=== PATIENT | male | born 1975 | race Two or more races ===

== ENCOUNTER 2017-10-06 21:40 | Inpatient (IN) | payer BC, MEDICAID ==
[~2017-10-06] VITALS: Ht 162.6 cm; Wt 161.7 kg
[2017-10-06] MEDS ORDERED: Morphine Sulfate 4mg/ml Inj IVP ONE (22:15)
[2017-10-06] MEDS ORDERED: Vancomycin 1.5gm/D5W 250ml 250 ML IVPB ONE (22:15)
[2017-10-06 22:39] LABS: BASOPHILS % (AUTO) 1.1 % (0.0-2.0); EOSINOPHILS % (AUTO) 1.3 % (0.0-3.0); HEMATOCRIT 50.1 % (42.0-52.0); LYMPHOCYTES % (AUTO) 17.1 % (20.0-45.0); MEAN CORPUSCULAR VOLUME 67 FL (80-99); MONOCYTES % (AUTO) 11.3 % (1.0-10.0); NEUTROPHILS % (AUTO) 69.3 % (45.0-75.0); PLATELET COUNT 137 K/UL (150-450); RED BLOOD COUNT 7.47 M/UL (4.70-6.10); RED CELL DISTRIBUTION WIDTH 19.3 % (11.6-14.8); WHITE BLOOD COUNT 7.3 K/UL (4.8-10.8)
[2017-10-06 22:50] LABS: ANION GAP 1 mmol/L (5-15); BLOOD UREA NITROGEN 22 mg/dL (7-18); CALCIUM 8.6 MG/DL (8.5-10.1); CARBON DIOXIDE 38 MMOL/L (21-32); CHLORIDE 99 MMOL/L (98-107); CREATININE 1.3 MG/DL (0.55-1.30); POTASSIUM 4.3 MMOL/L (3.5-5.1); SODIUM 138 MMOL/L (136-145)
[2017-10-06 23:05] LABS: ALANINE AMINOTRANSFERASE 31 U/L (12-78); ALBUMIN 2.9 G/DL (3.4-5.0); ALBUMIN/GLOBULIN RATIO 0.6 (1.0-2.7); ALKALINE PHOSPHATASE 68 U/L (46-116); ASPARTATE AMINO TRANSFERASE 29 U/L (15-37); BILIRUBIN,TOTAL 0.8 MG/DL (0.2-1.0); CKMB 1.7 NG/ML (0.0-3.6); CREATINE KINASE 81 U/L (26-308)
[2017-10-06] MEDS ORDERED: NKM (23:15)
[2017-10-06 23:59] LABS: BILIRUBIN, URINE NEGATIVE (NEGATIVE); GLUCOSE, URINE (UA) NEGATIVE (NEGATIVE); KETONES,URINE NEGATIVE (NEGATIVE); LEUKOCYTE ESTERASE ,URINE 1+ (NEGATIVE); NITRITE,URINE NEGATIVE (NEGATIVE); PH,URINE 6 (4.5-8.0); PROTEIN,URINE 2+ (NEGATIVE); UROBILINOGEN,URINE 4 MG/DL (0.0-1.0)
[2017-10-07] VITALS (24 sets, daily range): BP systolic 87–163; BP diastolic 30–82
[2017-10-07] LABS: APPEARANCE,URINE SLIGHTLY CLOUDY; COLOR,URINE YELLOW
[2017-10-07] MEDS ORDERED: Morphine Sulfate 2mg/ml Inj IVP PRN (00:30)
--- NOTE | 2017-10-07 00:39 | Emergency Room Report ---
History of Present Illness General Chief Complaint: Male Urogenital Problems Source: Patient Present Illness HPI 42-year-old male presents ED for evaluation. Patient states he's been having increased pain and swelling to his scrotal area x1 day. Pain is a 10 out of 10 , throbbing, nonradiating. Denies fevers or chills. Denies chest pain or shortness of breath. Denies nausea or vomiting. No other aggravating relieving factors. Denies any other associated symptoms Allergies: Coded Allergies: No Known Allergies (Unverified , 10/06/17) Patient History Past Medical History: none Past Surgical History: none Pertinent Family History: none Social History: Denies: smoking, alcohol use, drug use Immunizations: UTD Reviewed Nursing Documentation: PMH: Agreed, PSxH: Agreed Nursing Documentation-PMH Past Medical History: No Stated History Review of Systems All Other Systems: negative except mentioned in HPI Physical Exam Vital Signs Date Time Temp Pulse Resp B/P (MAP) Pulse Ox O2 Delivery O2 Flow Rate FiO2 10/06/17 21:45 98.2 110 19 132/70 97 Room Air Sp02 EP Interpretation: reviewed, normal General Appearance: alert, GCS 15, non-toxic, mild distress, obese Head: normocephalic Eyes: bilateral eye normal inspection, bilateral eye PERRL ENT: normal ENT inspection Neck: normal inspection Respiratory: chest non-tender, lungs clear, normal breath sounds, speaking full sentences Cardiovascular #1: regular rate, rhythm, no edema Gastrointestinal: normal bowel sounds, non tender, soft, non-distended, no guarding, no rebound Rectal: deferred Genitourinary: no CVA tenderness, other - induration/erythema to scrotum. no discharge Musculoskeletal: normal inspection Neurologic: alert, oriented x3, responsive, motor strength/tone normal, sensory intact, speech normal Psychiatric: normal inspection Skin: other - lichen planus patching noted to bilateral LEs, to inguinal area Lymphatic: normal inspection Medical Decision Making Diagnostic Impression: Primary Impression: Cellulitis of scrotum ER Course Hospital Course 42-year-old male presents to ED with redness, swelling to scrotal area Differential diagnoses include: Cellulitis, testicular torsion, abscess, rash. Clinical course Patient placed on stretcher. After initial history and physical I ordered labs , blood Cx, UA, IVFs, CT labs reviewed - no leukocytosis, Hb/Hct stable, no electrolyte abnormalities. lactate ok Patient is obese-patient will not on CT scanner Scrotal ultrasound attempted. No obvious evidence of torsion. However there is significant edema. No evidence of fluid antibiotics given. Urology Dr. Moreno agreed to consult Case discussed with Dr Combs and he agreed to accept the patient to his service for further care and support Diagnosis - cellulitis of scrotum Patient admitted to floor in serious condition Labs Test 10/06/17 22:15 10/06/17 23:22 White Blood Count 7.3 K/UL (4.8-10.8) Red Blood Count 7.47 M/UL (4.70-6.10) Hemoglobin 13.0 G/DL (14.2-18.0) Hematocrit 50.1 % (42.0-52.0) Mean Corpuscular Volume 67 FL (80-99) Mean Corpuscular Hemoglobin 17.4 PG (27.0-31.0) Mean Corpuscular Hemoglobin Concent 26.0 G/DL (32.0-36.0) Red Cell Distribution Width 19.3 % (11.6-14.8) Platelet Count 137 K/UL (150-450) Mean Platelet Volume 7.0 FL (6.5-10.1) Neutrophils (%) (Auto) 69.3 % (45.0-75.0) Lymphocytes (%) (Auto) 17.1 % (20.0-45.0) Monocytes (%) (Auto) 11.3 % (1.0-10.0) Eosinophils (%) (Auto) 1.3 % (0.0-3.0) Basophils (%) (Auto) 1.1 % (0.0-2.0) Sodium Level 138 MMOL/L (136-145) Potassium Level 4.3 MMOL/L (3.5-5.1) Chloride Level 99 MMOL/L (98-107) Carbon Dioxide Level 38 MMOL/L (21-32) Anion Gap 1 mmol/L (5-15) Blood Urea Nitrogen 22 mg/dL (7-18) Creatinine 1.3 MG/DL (0.55-1.30) Estimat Glomerular Filtration Rate > 60 mL/min (>60) Glucose Level 131 MG/DL (74-106) Lactic Acid Level 1.60 mmol/L (0.66-2.22) Calcium Level 8.6 MG/DL (8.5-10.1) Total Bilirubin 0.8 MG/DL (0.2-1.0) Aspartate Amino Transf (AST/SGOT) 29 U/L (15-37) Alanine Aminotransferase (ALT/SGPT) 31 U/L (12-78) Alkaline Phosphatase 68 U/L (46-116) Total Creatine Kinase 81 U/L (26-308) Creatine Kinase MB 1.7 NG/ML (0.0-3.6) Creatine Kinase MB Relative Index 2.0 Troponin I 0.036 ng/mL (0.000-0.056) Total Protein 8.1 G/DL (6.4-8.2) Albumin 2.9 G/DL (3.4-5.0) Globulin 5.2 g/dL Albumin/Globulin Ratio 0.6 (1.0-2.7) Urine Color Yellow Urine Appearance Slightly cloudy Urine pH 6 (4.5-8.0) Urine Specific [place] 1.020 (1.005-1.035) Urine Protein 2+ (NEGATIVE) Urine Glucose (UA) Negative (NEGATIVE) Urine Ketones Negative (NEGATIVE) Urine Occult Blood 2+ (NEGATIVE) Urine Nitrite Negative (NEGATIVE) Urine Bilirubin Negative (NEGATIVE) Urine Urobilinogen 4 MG/DL (0.0-1.0) Urine Leukocyte Esterase 1+ (NEGATIVE) Urine RBC 0-2 /HPF (0 - 0) Urine WBC 0-2 /HPF (0 - 0) Urine Squamous Epithelial Cells Occasional /LPF Urine Bacteria Occasional /HPF (NONE) Urine Mucus Few /LPF (NONE/OCC) CT/MRI/US Diagnostic Results CT/MRI/US Diagnostic Results : Imaging Test Ordered: Scrotal US Impression no evidence of torsion. significant edema noted. no fluid identified Last Vital Signs Date Time Temp Pulse Resp B/P (MAP) Pulse Ox O2 Delivery O2 Flow Rate FiO2 10/06/17 21:45 98.2 110 19 132/70 97 Room Air Status: improved Disposition: ADMITTED INPATIENT Condition: Serious Referrals: NOT CHOSEN BRITNEY/,REFERRING (PCP) ANDRESSA LI M.D. Oct 07, 2017 00:39
--- NOTE | 2017-10-07 06:51 | Emergency Room Report ---
History of Present Illness General Chief Complaint: Male Urogenital Problems Source: Patient Present Illness Allergies: Coded Allergies: No Known Allergies (Unverified , 10/06/17) Nursing Documentation-[facility] Past Medical History: No Stated History Physical Exam Vital Signs Date Time Temp Pulse Resp B/P (MAP) Pulse Ox O2 Delivery O2 Flow Rate FiO2 10/06/17 21:45 98.2 110 19 132/70 97 Room Air Procedures Critical Care Time Critical Care Time i. I feel this is a highly complex case requiring extensive working including EKG/Rhythm strip, Xray/CT/US, Blood/urine lab work, repeat exams while in ED, and administration of strong opiates/narcotics for pain control, admission to hospital or close patient follow up. Total time: 30 min bedside evaluation and treatment excludes procedures (EKG). Reason for critical care: Respiratory distress, asystole Possible complications: hypotension, hypertension, RI, shock, arrhythmias, metabolic acidosis, end organ damage, respiratory failure. Interventions: Chest compressions, epinephrine, calcium, bicarbonate, Accu-Chek , intubation Course: Patient with respiratory distress. Frothy sputum noted. Patient became apneic. patient lost pulses. Asystole. Compression started. Epinephrine given, calcium and bicarbonate given. Intubated. Patient regained pulses. To ICU Consultations: nursing staff, EMS, family Performed by: Dr Alvarenga Tolerated well condition = critical j. because of unstable vital signs this patient had a condition that could potentially threaten life or limb. I feel this is a critical patient who required my full attention while patient was considered critical. Total Critical Care Time excluding procedures was greater than 35 minutes CPR/Code Blue CPR/Code Blue Narrative see code blue sheet for full narrative Intubation Intubation : Consent: Emergent Intubation Method: orotracheal Tube Size (cm): 7.5 Medications: Etomidate, Succinylcholine Breath Sounds after Intubation: equal Intubation Complications: no complications Post Intubation Xray: Yes Attempts: One Patient Tolerated: Well Complications: None Medical Decision Making Diagnostic Impression: Primary Impression: Pulmonary edema Qualified Codes: J81.0 - Acute pulmonary edema Additional Impressions: Respiratory distress Cellulitis of scrotum ER Course I was called to [facility] on the medical floor. Nurse stating that patient was having trouble breathing while laying flat on his back. With frothy sputum. Became apneic and unresponsive. lost pulses. Asystole. Compression started. Given epinephrine. Given calcium and bicarbonate. Patient intubated. Patient regained pulses. PMD informed. Patient will be moved to ICU Last Vital Signs Date Time Temp Pulse Resp B/P (MAP) Pulse Ox O2 Delivery O2 Flow Rate FiO2 10/07/17 04:00 98.7 113 28 116/72 10/07/17 01:25 91 10/07/17 00:56 Room Air Status: improved Disposition: ADMITTED INPATIENT Condition: Critical Referrals: NOT CHOSEN BRITNEY/,REFERRING (PCP) ANDRESSA ALVARENGA M.D. Oct 07, 2017 06:51
[2017-10-07] MEDS ORDERED: Heparin 5000 units/ml inj SUBQ SCH ×2 (09:00→11:00)
--- NOTE | 2017-10-07 09:31 | History & Physical ---
History and Physical History & Physicial Dict #[id number] Exam completed Nery Combs MD Oct 07, 2017 09:31
--- NOTE | 2017-10-07 09:48 | Diagnostic Imaging Report ---
Indication: SOB Technique: XRAY CHEST 1 V Comparison:None Findings: The heart is enlarged. There is pulmonary vascular redistribution. Right pleural effusion is present tracking into the major fissure. The bones are unremarkable. Soft tissues are otherwise unremarkable. There is an endotracheal tube in place. Impression: Cardio megaly with congestive heart failure. Endotracheal tube. Right pleural effusion. The above report is concordant with preliminary reading by [facility] with minor difference.
--- NOTE | 2017-10-07 10:27 | Pulmonolgy Critical Care Note ---
Critical Care - Asmt/Plan Problems: (1) Respiratory distress (2) Pulmonary edema (3) Anasarca (4) scotal cellutis Respiratory: monitor respiratory rate, adjust FIO2, ABG Cardiac: continue pressors, continue to monitor HR/BP Renal: F/U I&O Infectious Disease: check cultures, continue antibiotics Gastrointestinal: continue feedings/current rate Endocrine: monitor blood sugar, check TSH Hematologic: monitor H/H Neurologic: PRN Morphine Prophylaxis: Protonix, Heparin Notes Reviewed: safety and security officer Discussed with: nurses, consultants Critical Care - Objective Last 24 Hour Vital Signs Date Time Temp Pulse Resp B/P (MAP) Pulse Ox O2 Delivery O2 Flow Rate FiO2 10/07/17 07:08 75 18 100 10/07/17 04:00 98.7 113 28 116/72 61 10/07/17 01:25 98.6 99 26 154/72 91 10/07/17 00:56 98.8 103 19 122/62 92 Room Air 10/07/17 00:39 98.8 103 19 122/62 92 Room Air 10/06/17 21:45 98.2 110 19 132/70 97 Room Air Status: sedated Condition: critical HEENT: atraumatic Lungs: clear Heart: HR/BP stable, HR/BP unstable Abdomen: soft, active bowel sounds Extremities: no C/C/E, edema Critical Care - Subjective ROS Limited/Unobtainable: No ICU Day: 1 Intubation Day: 1 Interval Events: ontinuosly getting worse on the floor, , o2 sat at 59 and patient was foaming in the mouth, intubated by ER physician and transferred to ICU. FI02: 100 Vent Support Breath Rate: 18 Vent Support Mode: AC Vent Tidal Volume: 550 Sputum Amount: Small PEEP: 5.0 PIP: 50 CXR: pulmonary edema ET slightly high ET-Tube: 7.5 ET Position: 25 Labs: Laboratory Tests Test 10/06/17 22:15 10/06/17 23:22 10/07/17 08:50 White Blood Count 7.3 K/UL (4.8-10.8) Red Blood Count 7.47 M/UL (4.70-6.10) H Hemoglobin 13.0 G/DL (14.2-18.0) L Hematocrit 50.1 % (42.0-52.0) Mean Corpuscular Volume 67 FL (80-99) L Mean Corpuscular Hemoglobin 17.4 PG (27.0-31.0) L Mean Corpuscular Hemoglobin Concent 26.0 G/DL (32.0-36.0) L Red Cell Distribution Width 19.3 % (11.6-14.8) H Platelet Count 137 K/UL (150-450) L Mean Platelet Volume 7.0 FL (6.5-10.1) Neutrophils (%) (Auto) 69.3 % (45.0-75.0) Lymphocytes (%) (Auto) 17.1 % (20.0-45.0) L Monocytes (%) (Auto) 11.3 % (1.0-10.0) H Eosinophils (%) (Auto) 1.3 % (0.0-3.0) Basophils (%) (Auto) 1.1 % (0.0-2.0) Sodium Level 138 MMOL/L (136-145) Potassium Level 4.3 MMOL/L (3.5-5.1) Chloride Level 99 MMOL/L (98-107) Carbon Dioxide Level 38 MMOL/L (21-32) H Anion Gap 1 mmol/L (5-15) L Blood Urea Nitrogen 22 mg/dL (7-18) H Creatinine 1.3 MG/DL (0.55-1.30) Estimat Glomerular Filtration Rate > 60 mL/min (>60) Glucose Level 131 MG/DL (74-106) H Lactic Acid Level 1.60 mmol/L (0.66-2.22) Calcium Level 8.6 MG/DL (8.5-10.1) Total Bilirubin 0.8 MG/DL (0.2-1.0) Aspartate Amino Transf (AST/SGOT) 29 U/L (15-37) Alanine Aminotransferase (ALT/SGPT) 31 U/L (12-78) Alkaline Phosphatase 68 U/L (46-116) Total Creatine Kinase 81 U/L (26-308) Creatine Kinase MB 1.7 NG/ML (0.0-3.6) Creatine Kinase MB Relative Index 2.0 Troponin I 0.036 ng/mL (0.000-0.056) Total Protein 8.1 G/DL (6.4-8.2) Albumin 2.9 G/DL (3.4-5.0) L Globulin 5.2 g/dL Albumin/Globulin Ratio 0.6 (1.0-2.7) L Urine Color Yellow Urine Appearance Slightly cloudy Urine pH 6 (4.5-8.0) Urine Specific [place] 1.020 (1.005-1.035) Urine Protein 2+ (NEGATIVE) H Urine Glucose (UA) Negative (NEGATIVE) Urine Ketones Negative (NEGATIVE) Urine Occult Blood 2+ (NEGATIVE) H Urine Nitrite Negative (NEGATIVE) Urine Bilirubin Negative (NEGATIVE) Urine Urobilinogen 4 MG/DL (0.0-1.0) H Urine Leukocyte Esterase 1+ (NEGATIVE) H Urine RBC 0-2 /HPF (0 - 0) H Urine WBC 0-2 /HPF (0 - 0) Urine Squamous Epithelial Cells Occasional /LPF Urine Bacteria Occasional /HPF (NONE) Urine Mucus Few /LPF (NONE/OCC) H Arterial Blood pH 7.218 (7.350-7.450) Arterial Blood Partial Pressure CO2 103.0 mmHg (35.0-45.0) *H Arterial Blood Partial Pressure O2 133.9 mmHg (75.0-100.0) H Arterial Blood HCO3 41.0 mmol/L (22.0-26.0) H Arterial Blood Oxygen Saturation 98.0 % (92.0-98.0) Arterial Blood Base Excess 9 Naif Test Positive DWAYNE GROSS Oct 07, 2017 10:26
[2017-10-07] MEDS ORDERED: Morphine Sulfate 4mg/ml Inj IVP PRN (11:00)
[2017-10-07] MEDS: Pantoprazole Inj IV SCH (13:03)
[2017-10-07] MEDS: Vancomycin 1.5gm/D5W 250ml 250 ML IVPB SCH ×2 (15:01→21:26)
[2017-10-07] MEDS: LORazepam Inj 2mg/ml 1ml IV PRN ×3 (15:37→23:30)
[2017-10-07] MEDS ORDERED: Tubing IV Secondary IV ONE (16:23)
[2017-10-07] MEDS: D5NS 1,000 ML IV SCH (16:29)
[2017-10-07 16:45] LABS: BASOPHILS % (AUTO) 2.9 % (0.0-2.0); EOSINOPHILS % (AUTO) 0.1 % (0.0-3.0); HEMATOCRIT 46.6 % (42.0-52.0); LYMPHOCYTES % (AUTO) 7.3 % (20.0-45.0); MEAN CORPUSCULAR VOLUME 67 FL (80-99); MONOCYTES % (AUTO) 6.9 % (1.0-10.0); NEUTROPHILS % (AUTO) 82.8 % (45.0-75.0); PLATELET COUNT 112 K/UL (150-450); RED BLOOD COUNT 6.97 M/UL (4.70-6.10); RED CELL DISTRIBUTION WIDTH 20.1 % (11.6-14.8); WHITE BLOOD COUNT 11.6 K/UL (4.8-10.8)
[2017-10-07] MEDS: Piperacillin/Tazobactam 3.375 GM in D5W 55 ML IVPB SCH (17:19)
--- NOTE | 2017-10-07 18:15 | Consultation ---
DATE OF CONSULTATION: 10/07/2017 UROLOGY CONSULTATION CONSULTING PHYSICIAN: Rivera Moreno M.D. REQUESTING PHYSICIAN: Nery Combs M.D. REASON FOR CONSULTATION: The patient is a 42-year-old male that came from home with history of obesity, who recently felt that his abdomen was getting larger and his scrotum and penis have developed swelling that was uncomfortable. Currently, the patient has just needed to be intubated for pulmonary distress and no further history can be obtained. PAST MEDICAL HISTORY: All I can ascertain is that he has significant obesity, multiple other medical problems, cannot give further details at this time. PAST SURGICAL HISTORY: I cannot obtain this information. REVIEW OF SYSTEMS: I cannot obtain this information. PHYSICAL EXAMINATION: VITAL SIGNS: Prior to being intubated, the most recent vital signs included being afebrile, temperature 98.7, pulse of 113, respiratory rate was 28, and blood pressure 116/72. Physical exam is as mentioned head and neck and abdomen very obese patient, currently intubated, so breath sounds are ventilator-based breath sounds. GENITOURINARY: Scrotum has rather substantial swelling. There is no feeling of crepitance to the tissue, however, there was some erythema to the skin of the swollen scrotum and the penis also has rather substantial swelling. The testicles themselves cannot be palpated. LABORATORY VALUES: Include white blood cell count 7.3, hemoglobin 13, and hematocrit of . ASSESSMENT: My assessment of the patient is that he appears to be having rather substantial scrotal swelling, which involves the penis as well likely secondary to congestive heart failure with fluid retention and his massive obesity. On exam, there is no obvious sign of significant deep tissue infection, although there is certainly may be some cellulitis to the skin of the scrotum at this time. Therefore, my diagnosis is that there is rather massive scrotal swelling, which involves the penis as well and likely some element of scrotal cellulitis. RECOMMENDATION: My recommendation is that the scrotum be elevated on rolled towels or whatever method is most convenient to let gravity help decrease the swelling of the scrotum and to use antibiotic, which would have good skin coverage for the scrotal cellulitis. I will now be signing off this patient's case and please call with any further concerns or need to re-evaluate this patient in report. Rivera Moreno DR: MORGAN JOB#: [id number] CC:
[2017-10-07] MEDS: Midazolam/D5W 100ml 100 ML IVPB SCH (18:30)
--- NOTE | 2017-10-07 21:01 | History and Physical Report ---
DATE OF ADMISSION: 10/06/2017 SOURCE OF INFORMATION: EMR. HISTORY OF PRESENT ILLNESS: The patient is a 42-year-old male, who presented with swelling on the scrotal area in the emergency room. The patient is morbidly obese. At the time the patient has been seen, he is currently intubated in the intensive care unit. Therefore, this is limited source of information based on the emergency documentation. PAST MEDICAL HISTORY: The patient denied. MEDICATIONS: Current hospital medications including vancomycin, Protonix, and morphine sulfate. ALLERGIES: NKDA. FAMILY HISTORY: Reviewed and noncontributory. SOCIAL HISTORY: The patient denies history of illicit drug abuse, smoking, or alcohol abuse. REVIEW OF SYSTEMS: Unobtainable as detailed above. PHYSICAL EXAMINATION: VITAL SIGNS: Blood pressure 110/70, temperature 98.2, and pulse oximetry 98% on room air. The patient is currently intubated in the intensive care unit. Pulse oximetry hovering 100% on the vent. HEAD AND NECK: Atraumatic and normocephalic. CHEST: Diffuse bronchial breathing sounds. No wheezing. ABDOMEN: Diffusely obese. Limited evaluation. GENITALIA: Diffuse swelling and redness on the anterior scrotal area. MUSCULOSKELETAL: Limited evaluation as the patient is sedated and intubated. LABORATORY DATA: Labs dated 10/06/2017 shows WBC 7.3, hemoglobin 13, and platelets 137. Sodium 138, potassium 4.3, BUN 22, and creatinine 1.3. Albumin 2.9. UA is 2+ proteinuria. ABG shows CO2 of 103. ASSESSMENT: 1. Acute hypoxemic respiratory failure. Differential diagnosis are pulmonary edema, thromboembolic events. 2. Cellulitis of the scrotal area. 3. Morbid obesity. 4. Thrombocytopenia. 5. Abnormal blood sugar. 6. Anemia. 7. Gastrointestinal and deep vein thrombosis prophylaxes. PLAN OF CARE: Infectious Diseases Dr. Pineda, Pulmonary Dr. Casas, and Urology Dr. Nur have been consulted. Continue with current critical care management. Nery Combs M.D. DR: TANYA JOB#: [id number] CC:
[2017-10-08] VITALS (49 sets, daily range): BP systolic 90–130; BP diastolic 41–76
[2017-10-08] MEDS: Piperacillin/Tazobactam 3.375 GM in D5W 55 ML IVPB SCH ×3 (01:43→16:14)
[2017-10-08] MEDS: D5NS 1,000 ML IV SCH (01:51)
[2017-10-08 03:38] LABS: BASOPHILS % (AUTO) 1.7 % (0.0-2.0); EOSINOPHILS % (AUTO) 0.2 % (0.0-3.0); HEMATOCRIT 43.6 % (42.0-52.0); HEMOGLOBIN 12.7 G/DL (14.2-18.0); LYMPHOCYTES % (AUTO) 8.4 % (20.0-45.0); MEAN CORPUSCULAR VOLUME 65 FL (80-99); MONOCYTES % (AUTO) 10.6 % (1.0-10.0); NEUTROPHILS % (AUTO) 79.1 % (45.0-75.0); PLATELET COUNT 116 K/UL (150-450); RED BLOOD COUNT 6.69 M/UL (4.70-6.10); RED CELL DISTRIBUTION WIDTH 19.6 % (11.6-14.8); WHITE BLOOD COUNT 9.6 K/UL (4.8-10.8)
[2017-10-08 04:45] LABS: ALANINE AMINOTRANSFERASE 21 U/L (12-78); ALBUMIN 2.4 G/DL (3.4-5.0); ALBUMIN/GLOBULIN RATIO 0.6 (1.0-2.7); ALKALINE PHOSPHATASE 51 U/L (46-116); ANION GAP 1 mmol/L (5-15); ASPARTATE AMINO TRANSFERASE 35 U/L (15-37); BILIRUBIN,TOTAL 1.1 MG/DL (0.2-1.0); BLOOD UREA NITROGEN 19 mg/dL (7-18); CALCIUM 8.6 MG/DL (8.5-10.1); CARBON DIOXIDE 38 MMOL/L (21-32); CHLORIDE 104 MMOL/L (98-107); CREATININE 1.4 MG/DL (0.55-1.30); PHOSPHORUS 4.3 MG/DL (2.5-4.9); POTASSIUM 3.8 MMOL/L (3.5-5.1); SODIUM 145 MMOL/L (136-145)
[2017-10-08 04:55] LABS: BILIRUBIN,DIRECT 0.3 MG/DL (0.0-0.3)
[2017-10-08] MEDS: LORazepam Inj 2mg/ml 1ml IV PRN ×2 (04:56→15:16)
[2017-10-08] MEDS: Midazolam/D5W 100ml 100 ML IVPB SCH ×2 (06:51→17:34)
[2017-10-08] MEDS: Pantoprazole Inj IV SCH (08:57)
--- NOTE | 2017-10-08 10:03 | Diagnostic Imaging Report ---
Indication: Chest pain Technique: One view of the chest Comparison: 6 hours earlier Findings: There is increased dense consolidation and possibly intrafissural pleural fluid in the right perihilar region. There is increasing retrocardiac consolidation with increasing air bronchograms Generalized interstitial congestion and hazy parenchymal opacity persists elsewhere. Interim nasogastric intubation, nasogastric tube tip projects beyond the image. Stable satisfactory position of endotracheal tube. The heart remains enlarged. Impression: Increasing right perihilar infiltrate and possibly intrafissural fluid. Increasing left retrocardiac consolidation Satisfactory nasogastric intubation
--- NOTE | 2017-10-08 10:12 | Cardiology Report ---
APPROVED REPORT EXAM: Two-dimensional and M-mode echocardiogram with Doppler and color Doppler. INDICATION Left Ventricular Function M-Mode DIMENSIONS IVSd1.3 (0.7-1.1cm)Left Atrium (MM)4.5 (1.6-4.0cm) LVDd3.6 (3.5-5.6cm)Aortic Root2.7 (2.0-3.7cm) PWd1.5 (0.7-1.1cm)Aortic Cusp Exc.2.0 (1.5-2.0cm) LVDs2.8 (2.5-4.0cm) PWs1.9 cm Technically difficult study due to patient body habitus and ventilator. Study quality precludes accurate assessment of regional wall motion. Normal left ventricular chamber size, systolic function and wall motion to extent visualized. Left ventricular ejection fraction estimated to be grossly normal. Mild left ventricular hypertrophy. Anterior Echo-free space, may be due to pericardial fat or effusion. Mild bi-atrial enlargement. Mild right ventricular chamber enlargement. Focal aortic valve sclerosis with adequate cusp excursion. Thickened mitral valve leaflets with normal excursion. Mitral annulus and aortic root calcification. Pulmonic valve not well visualized. Normal tricuspid valve structure. Subcostal views not obtainable. A color flow and spectral Doppler study was performed and revealed: No aortic regurgitation. No mitral regurgitation. Mitral inflow indicates normal left ventricular diastolic function. Trace tricuspid regurgitation. Tricuspid systolic velocities suggests peak right ventricular systolic pressure of 13 mmHg. No pulmonic regurgitation present.
[2017-10-08] MEDS ORDERED: Haloperidol 5mg/ml Inj IVPB PRN (10:15)
--- NOTE | 2017-10-08 10:17 | Pulmonolgy Critical Care Note ---
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 - Objective Last 24 Hour Vital Signs Date Time Temp Pulse Resp B/P (MAP) Pulse Ox O2 Delivery O2 Flow Rate FiO2 10/08/17 10:00 109 23 113/59 91 Mechanical Ventilator 80 10/08/17 09:30 97 21 106/56 97 Mechanical Ventilator 80 10/08/17 09:09 95 18 80 10/08/17 09:00 96 23 109/53 97 Mechanical Ventilator 80 10/08/17 08:30 100 18 115/57 98 Mechanical Ventilator 80 10/08/17 08:00 99.7 99 23 115/57 91 Mechanical Ventilator 80 10/08/17 08:00 80 10/08/17 07:30 100 21 90/70 91 Mechanical Ventilator 80 10/08/17 07:00 106 28 106/48 93 Mechanical Ventilator 80 10/08/17 06:53 110 18 80 10/08/17 06:51 20 10/08/17 06:30 110 28 102/49 91 Mechanical Ventilator 80 10/08/17 06:00 96 18 111/63 94 Mechanical Ventilator 80 10/08/17 06:00 18 10/08/17 06:00 18 10/08/17 05:44 80 10/08/17 05:30 95 18 112/50 95 Mechanical Ventilator 80 10/08/17 05:07 96 18 100 10/08/17 05:00 18 10/08/17 05:00 18 10/08/17 05:00 94 18 113/52 94 Mechanical Ventilator 100 10/08/17 04:30 92 18 111/52 95 Mechanical Ventilator 100 10/08/17 04:00 99.5 95 18 107/51 95 Mechanical Ventilator 100 10/08/17 04:00 96 10/08/17 04:00 18 10/08/17 04:00 18 10/08/17 04:00 100 10/08/17 03:30 94 18 105/48 95 Mechanical Ventilator 100 10/08/17 03:00 97 18 108/41 96 Mechanical Ventilator 100 10/08/17 03:00 18 10/08/17 03:00 18 10/08/17 02:56 98 18 100 10/08/17 02:30 111 23 116/46 96 Mechanical Ventilator 100 10/08/17 02:00 91 18 110/61 95 Mechanical Ventilator 100 10/08/17 02:00 22 10/08/17 02:00 22 10/08/17 01:30 91 18 112/57 96 Mechanical Ventilator 100 10/08/17 01:00 93 18 110/57 96 Mechanical Ventilator 100 10/08/17 01:00 22 10/08/17 01:00 22 10/08/17 00:56 94 18 100 10/08/17 00:30 95 18 112/55 96 Mechanical Ventilator 100 10/08/17 00:00 100 10/08/17 00:00 99.0 100 21 110/48 95 Mechanical Ventilator 100 10/08/17 00:00 100 10/08/17 00:00 18 10/08/17 00:00 18 10/07/17 23:30 99 18 90/41 94 Mechanical Ventilator 100 10/07/17 23:00 91 18 99/52 93 Mechanical Ventilator 100 10/07/17 23:00 18 10/07/17 23:00 18 10/07/17 22:51 91 18 100 10/07/17 22:30 96 18 98/52 95 Mechanical Ventilator 100 10/07/17 22:00 96 18 102/53 95 Mechanical Ventilator 100 10/07/17 22:00 22 10/07/17 22:00 22 10/07/17 21:30 90 22 98/50 96 Mechanical Ventilator 100 10/07/17 21:04 90 18 100 10/07/17 21:00 88 18 93/50 96 Mechanical Ventilator 100 10/07/17 21:00 18 10/07/17 21:00 18 10/07/17 20:30 88 18 97/47 96 Mechanical Ventilator 100 10/07/17 20:00 89 18 98/50 98 Mechanical Ventilator 100 10/07/17 20:00 18 10/07/17 20:00 18 10/07/17 20:00 100 10/07/17 20:00 89 10/07/17 19:30 99.0 88 21 101/51 96 Mechanical Ventilator 100 10/07/17 19:29 105 24 100 10/07/17 19:00 18 10/07/17 19:00 18 10/07/17 19:00 85 18 101/52 96 10/07/17 18:30 18 10/07/17 18:00 88 18 100/50 94 10/07/17 17:07 93 18 100 10/07/17 17:00 91 18 93/42 98 10/07/17 16:00 98.0 107 18 87/30 96 10/07/17 16:00 100 10/07/17 15:20 89 20 100 10/07/17 15:00 83 17 122/66 98 10/07/17 14:00 83 18 145/82 98 10/07/17 13:15 87 18 100 10/07/17 13:00 85 18 140/80 98 10/07/17 12:00 98.4 88 18 134/71 97 10/07/17 12:00 100 10/07/17 11:15 93 18 100 10/07/17 11:00 88 18 146/68 97 Status: awake Condition: critical HEENT: atraumatic Neck: full ROM Lungs: clear Heart: HR/BP stable Abdomen: active bowel sounds Extremities: edema Micro: Microbiology Date/Time Source Procedure Growth Status 10/06/17 22:15 Blood Blood Culture - Preliminary NO GROWTH AFTER 24 HOURS Resulted 10/06/17 22:15 Blood Blood Culture - Preliminary NO GROWTH AFTER 24 HOURS Resulted Critical Care - Subjective ROS Limited/Unobtainable: Yes ICU Day: 2 Intubation Day: 2 Condition: critical EKG Rhythm: Sinus Bradycardia FI02: 80 Vent Support Breath Rate: 18 Vent Support Mode: AC Vent Tidal Volume: 550 Sputum Amount: Moderate PEEP: 5.0 PIP: 39 Fluids: d5 RAND 100 cc/hour Drips: versed and fentalnyl I&O: Intake and Output 10/08/17 10/09/17 19:00 07:00 Intake Total 0 ml Balance 0 ml Intake Oral 0 ml CXR: RML infiltrate,ET tube in place ET-Tube: 7.5 ET Position: 25 Labs: Laboratory Tests Test 10/07/17 16:15 10/08/17 03:10 10/08/17 09:15 White Blood Count 11.6 K/UL (4.8-10.8) #H 9.6 K/UL (4.8-10.8) Red Blood Count 6.97 M/UL (4.70-6.10) H 6.69 M/UL (4.70-6.10) H Hemoglobin 13.0 G/DL (14.2-18.0) L 12.7 G/DL (14.2-18.0) L Hematocrit 46.6 % (42.0-52.0) 43.6 % (42.0-52.0) Mean Corpuscular Volume 67 FL (80-99) L 65 FL (80-99) L Mean Corpuscular Hemoglobin 18.7 PG (27.0-31.0) L 19.0 PG (27.0-31.0) L Mean Corpuscular Hemoglobin Concent 28.0 G/DL (32.0-36.0) L 29.2 G/DL (32.0-36.0) L Red Cell Distribution Width 20.1 % (11.6-14.8) H 19.6 % (11.6-14.8) H Platelet Count 112 K/UL (150-450) L 116 K/UL (150-450) L Mean Platelet Volume 6.9 FL (6.5-10.1) 8.9 FL (6.5-10.1) Neutrophils (%) (Auto) 82.8 % (45.0-75.0) H 79.1 % (45.0-75.0) H Lymphocytes (%) (Auto) 7.3 % (20.0-45.0) L 8.4 % (20.0-45.0) L Monocytes (%) (Auto) 6.9 % (1.0-10.0) 10.6 % (1.0-10.0) H Eosinophils (%) (Auto) 0.1 % (0.0-3.0) 0.2 % (0.0-3.0) Basophils (%) (Auto) 2.9 % (0.0-2.0) H 1.7 % (0.0-2.0) Pro-B-Type Natriuretic Peptide 2011 pg/mL (0-125) H Sodium Level 145 MMOL/L (136-145) Potassium Level 3.8 MMOL/L (3.5-5.1) Chloride Level 104 MMOL/L (98-107) Carbon Dioxide Level 38 MMOL/L (21-32) H Anion Gap 1 mmol/L (5-15) L Blood Urea Nitrogen 19 mg/dL (7-18) H Creatinine 1.4 MG/DL (0.55-1.30) H Estimat Glomerular Filtration Rate 56.1 mL/min (>60) Glucose Level 99 MG/DL (74-106) Calcium Level 8.6 MG/DL (8.5-10.1) Phosphorus Level 4.3 MG/DL (2.5-4.9) Magnesium Level 1.6 MG/DL (1.8-2.4) L Total Bilirubin 1.1 MG/DL (0.2-1.0) H Direct Bilirubin 0.3 MG/DL (0.0-0.3) Aspartate Amino Transf (AST/SGOT) 35 U/L (15-37) Alanine Aminotransferase (ALT/SGPT) 21 U/L (12-78) Alkaline Phosphatase 51 U/L (46-116) Total Protein 6.7 G/DL (6.4-8.2) Albumin 2.4 G/DL (3.4-5.0) L Globulin 4.3 g/dL Albumin/Globulin Ratio 0.6 (1.0-2.7) L Vancomycin Level Trough 15.4 ug/mL (5.0-12.0) H DWAYNE GROSS Oct 08, 2017 10:16
--- NOTE | 2017-10-08 10:25 | Consultation ---
Consult Note Consult Note Dic # [id number] CATALINA PARRA M.D. Oct 08, 2017 10:25
[2017-10-08] MEDS: Heparin 5000 units/ml inj SUBQ SCH (11:13)
--- NOTE | 2017-10-08 11:36 | Diagnostic Imaging Report ---
Indication: DYSPNEA Technique: One view of the chest Comparison: 10/07/2017 Findings: Generalized interstitial and hazy airspace edema persists. Dense consolidation in the right mid and lower lung appears more extensive. Stable satisfactory position of is endotracheal tube. Previously demonstrated nasogastric tube is no longer evident. The heart remains enlarged. There is increased obscuration of the right hemidiaphragm, pleural effusion possible. There is probably pleural fluid on the left as well. Impression: Increasing right lung consolidation. Persistent bilateral diffuse interstitial and airspace edema, over one day Interim nasogastric tube removal New or increased right pleural effusion. Probably stable left pleural effusion
[2017-10-08] MEDS: Vancomycin 1.5gm/D5W 250ml 250 ML IVPB SCH ×2 (11:47→21:51)
--- NOTE | 2017-10-08 11:56 | General Progress Note ---
Assessment/Plan Status: stable, unchanged Assessment/Plan 1. VDRF 2. Acute hypoxemic respiratory failure. Differential diagnosis are pulmonary edema, thromboembolic events. 2. Pulmonary infiltrate- Aspiration PNA?! 2. Cellulitis of the scrotal area. 3. Morbid obesity. 4. Thrombocytopenia. 5. Abnormal blood sugar. 6. Anemia. 7. Gastrointestinal and deep vein thrombosis prophylaxes. PLAN OF CARE: NOtes from Infectious Diseases Dr. Pineda, Pulmonary Dr. Casas , reviewed. Continue with current critical care management. Subjective ROS Limited/Unobtainable: Yes Allergies: Coded Allergies: No Known Allergies (Unverified , 10/06/17) Objective Last 24 Hour Vital Signs Date Time Temp Pulse Resp B/P (MAP) Pulse Ox O2 Delivery O2 Flow Rate FiO2 10/08/17 11:18 99 18 80 10/08/17 11:00 18 10/08/17 11:00 18 10/08/17 10:30 101 20 106/56 98 Mechanical Ventilator 80 10/08/17 10:00 109 23 113/59 91 Mechanical Ventilator 80 10/08/17 10:00 22 10/08/17 10:00 22 10/08/17 09:30 97 21 106/56 97 Mechanical Ventilator 80 10/08/17 09:09 95 18 80 10/08/17 09:00 96 23 109/53 97 Mechanical Ventilator 80 10/08/17 09:00 21 10/08/17 09:00 21 10/08/17 08:30 100 18 115/57 98 Mechanical Ventilator 80 10/08/17 08:00 99.7 99 23 115/57 91 Mechanical Ventilator 80 10/08/17 08:00 20 10/08/17 08:00 20 10/08/17 08:00 80 10/08/17 07:30 100 21 90/70 91 Mechanical Ventilator 80 10/08/17 07:00 106 28 106/48 93 Mechanical Ventilator 80 10/08/17 07:00 23 10/08/17 07:00 23 10/08/17 06:53 110 18 80 10/08/17 06:51 20 10/08/17 06:30 110 28 102/49 91 Mechanical Ventilator 80 10/08/17 06:00 96 18 111/63 94 Mechanical Ventilator 80 10/08/17 06:00 18 10/08/17 06:00 18 10/08/17 05:44 80 10/08/17 05:30 95 18 112/50 95 Mechanical Ventilator 80 10/08/17 05:07 96 18 100 10/08/17 05:00 18 10/08/17 05:00 18 10/08/17 05:00 94 18 113/52 94 Mechanical Ventilator 100 10/08/17 04:30 92 18 111/52 95 Mechanical Ventilator 100 10/08/17 04:00 99.5 95 18 107/51 95 Mechanical Ventilator 100 10/08/17 04:00 96 10/08/17 04:00 18 10/08/17 04:00 18 10/08/17 04:00 100 10/08/17 03:30 94 18 105/48 95 Mechanical Ventilator 100 10/08/17 03:00 97 18 108/41 96 Mechanical Ventilator 100 10/08/17 03:00 18 10/08/17 03:00 18 10/08/17 02:56 98 18 100 10/08/17 02:30 111 23 116/46 96 Mechanical Ventilator 100 10/08/17 02:00 91 18 110/61 95 Mechanical Ventilator 100 10/08/17 02:00 22 10/08/17 02:00 22 10/08/17 01:30 91 18 112/57 96 Mechanical Ventilator 100 10/08/17 01:00 93 18 110/57 96 Mechanical Ventilator 100 10/08/17 01:00 22 10/08/17 01:00 22 10/08/17 00:56 94 18 100 10/08/17 00:30 95 18 112/55 96 Mechanical Ventilator 100 10/08/17 00:00 100 10/08/17 00:00 99.0 100 21 110/48 95 Mechanical Ventilator 100 10/08/17 00:00 100 10/08/17 00:00 18 10/08/17 00:00 18 10/07/17 23:30 99 18 90/41 94 Mechanical Ventilator 100 10/07/17 23:00 91 18 99/52 93 Mechanical Ventilator 100 10/07/17 23:00 18 10/07/17 23:00 18 10/07/17 22:51 91 18 100 10/07/17 22:30 96 18 98/52 95 Mechanical Ventilator 100 10/07/17 22:00 96 18 102/53 95 Mechanical Ventilator 100 10/07/17 22:00 22 10/07/17 22:00 22 10/07/17 21:30 90 22 98/50 96 Mechanical Ventilator 100 10/07/17 21:04 90 18 100 10/07/17 21:00 88 18 93/50 96 Mechanical Ventilator 100 10/07/17 21:00 18 10/07/17 21:00 18 10/07/17 20:30 88 18 97/47 96 Mechanical Ventilator 100 10/07/17 20:00 89 18 98/50 98 Mechanical Ventilator 100 10/07/17 20:00 18 10/07/17 20:00 18 10/07/17 20:00 100 10/07/17 20:00 89 10/07/17 19:30 99.0 88 21 101/51 96 Mechanical Ventilator 100 10/07/17 19:29 105 24 100 10/07/17 19:00 18 10/07/17 19:00 18 10/07/17 19:00 85 18 101/52 96 10/07/17 18:30 18 10/07/17 18:00 88 18 100/50 94 10/07/17 17:07 93 18 100 10/07/17 17:00 91 18 93/42 98 10/07/17 16:00 98.0 107 18 87/30 96 10/07/17 16:00 100 10/07/17 15:20 89 20 100 10/07/17 15:00 83 17 122/66 98 10/07/17 14:00 83 18 145/82 98 10/07/17 13:15 87 18 100 10/07/17 13:00 85 18 140/80 98 10/07/17 12:00 98.4 88 18 134/71 97 10/07/17 12:00 100 Intake and Output 10/08/17 10/09/17 19:00 07:00 Intake Total 109.25 ml Balance 109.25 ml Intake Oral 0 ml IV Total 109.25 ml Laboratory Tests 10/07/17 16:15: White Blood Count 11.6#H, Red Blood Count 6.97H, Hemoglobin 13.0L, Hematocrit 46.6, Mean Corpuscular Volume 67L, Mean Corpuscular Hemoglobin 18.7L, Mean Corpuscular Hemoglobin Concent 28.0L, Red Cell Distribution Width 20.1H, Platelet Count 112L, Mean Platelet Volume 6.9, Neutrophils (%) (Auto) 82.8H, Lymphocytes (%) (Auto) 7.3L, Monocytes (%) (Auto) 6.9, Eosinophils (%) (Auto) 0.1, Basophils (%) (Auto) 2.9H, Pro-B-Type Natriuretic Peptide 10/08/17 03:10: White Blood Count 9.6, Red Blood Count 6.69H, Hemoglobin 12.7L, Hematocrit 43.6 , Mean Corpuscular Volume 65L, Mean Corpuscular Hemoglobin 19.0L, Mean Corpuscular Hemoglobin Concent 29.2L, Red Cell Distribution Width 19.6H, Platelet Count 116L, Mean Platelet Volume 8.9, Neutrophils (%) (Auto) 79.1H, Lymphocytes (%) (Auto) 8.4L, Monocytes (%) (Auto) 10.6H, Eosinophils (%) (Auto) 0.2, Basophils (%) (Auto) 1.7, Sodium Level 145, Potassium Level 3.8, Chloride Level 104, Carbon Dioxide Level 38H, Anion Gap 1L, Blood Urea Nitrogen 19H, Creatinine 1.4H, Estimat Glomerular Filtration Rate 56.1, Glucose Level 99, Calcium Level 8.6, Phosphorus Level 4.3, Magnesium Level 1.6L, Total Bilirubin 1.1H, Direct Bilirubin 0.3, Aspartate Amino Transf (AST/SGOT) 35, Alanine Aminotransferase (ALT/SGPT) 21, Alkaline Phosphatase 51, Total Protein 6.7, Albumin 2.4L, Globulin 4.3, Albumin/Globulin Ratio 0.6L 10/08/17 09:15: Vancomycin Level Trough 15.4H 10/08/17 10:00: Arterial Blood pH 7.336L, Arterial Blood Partial Pressure CO2 83.9*H, Arterial Blood Partial Pressure O2 53.2L, Arterial Blood HCO3 43.8H, Arterial Blood Oxygen Saturation 84.1L, Arterial Blood Base Excess 14.0, Naif Test Positive Height (Feet): 5 Height (Inches): 4.00 Weight (Pounds): 356 General Appearance: no apparent distress, other - Intubated EENT: other - limited. intubated Neck: supple Cardiovascular: normal rate Respiratory/Chest: crackles/rales, rhonchi - right Abdomen: soft Extremities: other - limited eval. sedated and intubated Neurologic: other - limited. heavily sedated Rezvani,Mohammad MD Oct 08, 2017 11:56
[2017-10-08] MEDS ORDERED: D5NS 1000ml IV ONE (18:21)
[2017-10-08] MEDS ORDERED: NS 500ML ONE (18:21)
[2017-10-08] MEDS ORDERED: Tubing IV Secondary IV ONE (18:21)
[2017-10-08] MEDS: Haloperidol Lactate 5 MG in D5W 55 ML IVPB PRN (19:29)
[2017-10-08] MEDS ORDERED: Sodium Bicarbonate 50ml Carp ONE (21:55)
[2017-10-08] MEDS ORDERED: Calcium Chloride 10% 10ml carpuject IVP ONE (21:55)
[2017-10-09] VITALS (52 sets, daily range): BP systolic 86–133; BP diastolic 27–76
[2017-10-09] MEDS: LORazepam Inj 2mg/ml 1ml IV PRN (00:26)
[2017-10-09] MEDS: Piperacillin/Tazobactam 3.375 GM in D5W 55 ML IVPB SCH ×3 (00:58→17:23)
--- NOTE | 2017-10-09 04:00 | Consultation ---
DATE OF CONSULTATION: 10/08/2017 INFECTIOUS DISEASE CONSULTATION CONSULTING PHYSICIAN: Gerard Pineda M.D. REQUESTING PHYSICIAN: Nery Combs M.D. REASON FOR CONSULTATION: Evaluation of the patient for possible pneumonia, scrotal cellulitis, antibiotic management. HISTORY OF PRESENT ILLNESS: The patient is a 42-year-old male with with no . Recently, the patient was brought to the hospital with swelling of the genitalia and scrotum. The patient initially did not have any shortness of breath, however, during hospitalization, the patient's condition worsened with shortness of breath, had to be intubated, and currently, the patient is in the ICU. Infectious Disease consultation has been requested for further evaluation of the patient's antibiotic management. PAST MEDICAL HISTORY: None. MEDICATIONS: The patient has been stated on IV Zosyn and vancomycin. ALLERGIES: No known drug allergies. SOCIAL HISTORY: Negative for alcohol, drug abuse, or smoking. FAMILY HISTORY: Not contributing. REVIEW OF SYSTEMS: Unobtainable. PHYSICAL EXAMINATION: VITAL SIGNS: Temperature 98 degrees, pulse 86, respiratory rate 18, blood pressure 107/43 and T-max 101.5 degrees. HEENT: No pale conjunctivae. No icterus. NECK: No lymphadenopathy. CHEST: Coarse breathing sounds. HEART: S1 and S2. ABDOMEN: Obese. EXTREMITIES: No signs of cellulitis. GENITOURINARY: The patient has swelling of the scrotum with some associated erythema. LABORATORY AND DIAGNOSTIC DATA: White blood cells 9.6, hemoglobin 12, and platelets 116. UA unremarkable. BUN 19 and creatinine 1.5. ALT, AST and alkaline phosphatase are unremarkable. Blood culture is pending. Chest x-ray at the time of admission, cardiomegaly with CHF findings. Chest x-ray today showed increased right lung consolidation and bilateral diffuse interstitial airspace disease. ASSESSMENT: The patient is a 42-year-old male with, 1. Possible aspiration pneumonia versus community-acquired pneumonia. 2. Probable scrotal cellulitis versus discoloration of genitalia due to edema. 3. Ventilator-dependent respiratory failure. 4. Fever x1. 5. Rule out bacteremia. 6. Congestive heart failure. PLAN: 1. We will continue the patient on vancomycin and Zosyn. We will add Zithromax. 2. Monitor CBC. 3. Monitor BMP. 4. Monitor cultures (blood, urine, and sputum). 5. Continue vent support. 6. Monitor chest x-ray. 7. Based on the patient's clinical course and labs, we will do further recommendation. Thank you, Dr. Combs, for allowing me participate in the care of this patient. I will follow the patient with you during this hospitalization. Gerard Pineda M.D. DR: ELIANE JOB#: [id number] CC:
[2017-10-09] MEDS: Midazolam/D5W 100ml 100 ML IVPB SCH ×3 (05:04→19:00)
[2017-10-09 05:49] LABS: BASOPHILS % (AUTO) 1.3 % (0.0-2.0); EOSINOPHILS % (AUTO) 1.8 % (0.0-3.0); HEMOGLOBIN 12.6 G/DL (14.2-18.0); LYMPHOCYTES % (AUTO) 9.3 % (20.0-45.0); MEAN CORPUSCULAR VOLUME 65 FL (80-99); MONOCYTES % (AUTO) 9.8 % (1.0-10.0); NEUTROPHILS % (AUTO) 77.9 % (45.0-75.0); PLATELET COUNT 104 K/UL (150-450); RED BLOOD COUNT 6.61 M/UL (4.70-6.10); RED CELL DISTRIBUTION WIDTH 19.6 % (11.6-14.8); WHITE BLOOD COUNT 9.8 K/UL (4.8-10.8)
[2017-10-09 06:25] LABS: ALANINE AMINOTRANSFERASE 15 U/L (12-78); ALBUMIN 2.1 G/DL (3.4-5.0); ALBUMIN/GLOBULIN RATIO 0.5 (1.0-2.7); ALKALINE PHOSPHATASE 43 U/L (46-116); ANION GAP -1 mmol/L (5-15); ASPARTATE AMINO TRANSFERASE 31 U/L (15-37); BILIRUBIN,TOTAL 1.4 MG/DL (0.2-1.0); BLOOD UREA NITROGEN 21 mg/dL (7-18); CALCIUM 8.1 MG/DL (8.5-10.1); CARBON DIOXIDE 39 MMOL/L (21-32); CHLORIDE 105 MMOL/L (98-107); CREATININE 1.7 MG/DL (0.55-1.30); PHOSPHORUS 5.4 MG/DL (2.5-4.9); POTASSIUM 3.5 MMOL/L (3.5-5.1); SODIUM 145 MMOL/L (136-145)
[2017-10-09 06:30] LABS: BILIRUBIN,DIRECT 0.4 MG/DL (0.0-0.3)
[2017-10-09] MEDS: Haloperidol Lactate 5 MG in D5W 55 ML IVPB PRN (07:12)
[2017-10-09] MEDS: Pantoprazole Inj IV SCH (08:35)
[2017-10-09] MEDS: Heparin 5000 units/ml inj SUBQ SCH (09:00)
[2017-10-09] MEDS ORDERED: Lidocaine 1% Plain 30 ml INJ ONE (10:30)
[2017-10-09] MEDS ORDERED: Heparin 2000 units/Ns 1000ml INJ ONE (10:30)
[2017-10-09] MEDS: Vancomycin 1.5gm/D5W 250ml 250 ML IVPB SCH ×2 (10:34→12:50)
--- NOTE | 2017-10-09 10:59 | Pulmonolgy Critical Care Note ---
Critical Care - Asmt/Plan Problems: (1) Respiratory distress (2) Pulmonary edema (3) Anasarca (4) scotal cellutis Respiratory: monitor respiratory rate Cardiac: continue to monitor HR/BP Renal: F/U I&O, other - dc lasix Infectious Disease: check cultures Gastrointestinal: continue feedings/current rate Endocrine: monitor blood sugar, check HgA1C Hematologic: transfuse if hgb<8.5 Neurologic: PRN Ativan, PRN Morphine, keep patient comfortable Prophylaxis: Protonix Notes Reviewed: cardio, renal Discussed with: nurses, consultants, nurse outreach case managerchamber of commerce division manager - Objective Last 24 Hour Vital Signs Date Time Temp Pulse Resp B/P (MAP) Pulse Ox O2 Delivery O2 Flow Rate FiO2 10/09/17 10:55 99.9 10/09/17 10:38 98 18 100 10/09/17 10:00 20 10/09/17 10:00 20 10/09/17 09:30 99 20 126/68 83 Mechanical Ventilator 100 10/09/17 09:06 100 18 100 10/09/17 09:01 109 10/09/17 09:00 22 10/09/17 09:00 22 10/09/17 09:00 95 18 125/63 89 Mechanical Ventilator 100 10/09/17 08:45 97 18 125/65 86 Mechanical Ventilator 100 10/09/17 08:30 102 24 130/74 86 Mechanical Ventilator 100 10/09/17 08:15 103 23 132/64 76 Mechanical Ventilator 100 10/09/17 08:00 25 10/09/17 08:00 23 10/09/17 08:00 100 10/09/17 08:00 109 25 92/27 87 Mechanical Ventilator 100 10/09/17 07:30 99 23 122/64 85 Mechanical Ventilator 100 10/09/17 07:27 102 20 100 10/09/17 07:00 23 10/09/17 07:00 23 10/09/17 07:00 100.0 96 19 133/59 92 Mechanical Ventilator 100 10/09/17 06:30 90 18 133/55 91 Mechanical Ventilator 100 10/09/17 06:00 18 10/09/17 06:00 18 10/09/17 06:00 90 18 121/55 92 Mechanical Ventilator 100 10/09/17 05:30 89 18 107/54 92 Mechanical Ventilator 100 10/09/17 05:04 20 10/09/17 05:00 95 19 107/54 91 Mechanical Ventilator 100 10/09/17 05:00 19 10/09/17 05:00 19 10/09/17 04:35 97 19 100 10/09/17 04:30 97 19 108/54 91 Mechanical Ventilator 100 10/09/17 04:00 100 10/09/17 04:00 18 10/09/17 04:00 18 10/09/17 04:00 100 10/09/17 04:00 100.0 100 18 104/52 90 Mechanical Ventilator 100 10/09/17 03:30 101 20 110/50 90 Mechanical Ventilator 100 10/09/17 03:30 99 18 100 10/09/17 03:00 103 22 111/42 91 Mechanical Ventilator 100 10/09/17 03:00 22 10/09/17 03:00 22 10/09/17 02:30 104 19 115/49 91 Mechanical Ventilator 100 10/09/17 02:27 20 10/09/17 02:00 24 10/09/17 02:00 24 10/09/17 02:00 104 19 105/48 91 Mechanical Ventilator 100 10/09/17 01:30 106 21 112/46 92 Mechanical Ventilator 100 10/09/17 01:21 108 18 100 10/09/17 01:00 24 10/09/17 01:00 24 10/09/17 01:00 110 24 110/53 91 Mechanical Ventilator 100 10/09/17 00:30 104 25 112/54 91 Mechanical Ventilator 100 10/09/17 00:00 100 10/09/17 00:00 105 10/09/17 00:00 24 10/09/17 00:00 24 10/09/17 00:00 100.8 105 24 114/56 91 Mechanical Ventilator 100 10/08/17 23:30 106 18 100 10/08/17 23:30 105 23 113/47 91 Mechanical Ventilator 100 10/08/17 23:00 31 10/08/17 23:00 31 10/08/17 23:00 106 21 118/59 89 Mechanical Ventilator 100 10/08/17 22:30 104 25 126/62 90 Mechanical Ventilator 100 10/08/17 22:00 104 23 123/63 90 Mechanical Ventilator 100 10/08/17 22:00 25 10/08/17 22:00 25 10/08/17 21:30 107 24 118/60 90 Mechanical Ventilator 100 10/08/17 21:30 105 20 100 10/08/17 21:00 28 10/08/17 21:00 28 10/08/17 21:00 108 28 116/54 90 Mechanical Ventilator 100 10/08/17 20:30 108 25 125/55 93 Mechanical Ventilator 100 10/08/17 20:00 108 10/08/17 20:00 100.0 101 18 110/60 93 Mechanical Ventilator 100 10/08/17 20:00 25 10/08/17 20:00 25 10/08/17 20:00 100 10/08/17 19:30 116 28 100 10/08/17 19:30 110 25 105/76 92 Mechanical Ventilator 100 10/08/17 19:00 20 10/08/17 19:00 20 10/08/17 19:00 103 20 109/76 92 Mechanical Ventilator 100 10/08/17 18:30 99 18 124/54 91 Mechanical Ventilator 100 10/08/17 18:00 103 19 124/54 92 Mechanical Ventilator 100 10/08/17 18:00 18 10/08/17 18:00 18 10/08/17 17:34 20 10/08/17 17:30 104 18 115/53 94 Mechanical Ventilator 100 10/08/17 17:00 115 26 130/67 94 Mechanical Ventilator 100 10/08/17 17:00 22 10/08/17 16:45 117 24 100 10/08/17 16:30 119 23 126/63 93 Mechanical Ventilator 80 10/08/17 16:00 80 10/08/17 16:00 20 10/08/17 16:00 109 10/08/17 16:00 112 23 129/76 93 Mechanical Ventilator 80 10/08/17 15:30 106 23 126/63 93 Mechanical Ventilator 80 10/08/17 15:27 123 21 80 10/08/17 15:17 22 10/08/17 15:00 18 10/08/17 15:00 18 10/08/17 15:00 121 23 112/52 95 Mechanical Ventilator 80 10/08/17 14:30 93 20 107/43 95 Mechanical Ventilator 80 10/08/17 14:00 96 18 107/52 95 Mechanical Ventilator 80 10/08/17 14:00 18 10/08/17 14:00 18 10/08/17 13:30 97 18 108/54 94 Mechanical Ventilator 80 10/08/17 13:00 100 25 113/51 95 Mechanical Ventilator 80 10/08/17 13:00 18 10/08/17 13:00 18 10/08/17 12:38 99 18 80 10/08/17 12:30 99 21 108/57 94 Mechanical Ventilator 80 10/08/17 12:00 80 10/08/17 12:00 102 10/08/17 12:00 19 10/08/17 12:00 19 10/08/17 12:00 101.5 102 17 113/53 94 Mechanical Ventilator 80 10/08/17 11:30 100 21 106/55 95 Mechanical Ventilator 80 10/08/17 11:18 99 18 80 10/08/17 11:00 99 19 108/55 95 Mechanical Ventilator 80 10/08/17 11:00 18 10/08/17 11:00 18 Status: awake Condition: critical HEENT: atraumatic Lungs: clear Heart: HR/BP stable, HR/BP unstable Abdomen: soft, active bowel sounds, feeding tube Extremities: no C/C/E Decubiti: location Micro: Microbiology Date/Time Source Procedure Growth Status 10/06/17 22:15 Blood Blood Culture - Preliminary NO GROWTH AFTER 48 HOURS Resulted 10/06/17 22:15 Blood Blood Culture - Preliminary NO GROWTH AFTER 48 HOURS Resulted 10/08/17 21:00 Urine,Clean Catch Urine Culture - Preliminary NO GROWTH AFTER 24 HOURS Resulted Critical Care - Subjective ROS Limited/Unobtainable: Yes ICU Day: 3 Condition: critical EKG Rhythm: Sinus Rhythm FI02: 100 Vent Support Breath Rate: 18 Vent Support Mode: AC Vent Tidal Volume: 550 Sputum Amount: Moderate PEEP: 10.0 PIP: 39 Tube Feeding Amount: 30 I&O: Intake and Output 10/09/17 10/10/17 19:00 07:00 Intake Total 387.75 ml Output Total 750 ml Balance -362.25 ml IV Total 297.75 ml Tube Feeding 90 ml Output Urine Total 750 ml CXR: no change ET-Tube: 7.5 ET Position: 25 Labs: Laboratory Tests Test 10/09/17 05:30 10/09/17 09:10 White Blood Count 9.8 K/UL (4.8-10.8) Red Blood Count 6.61 M/UL (4.70-6.10) H Hemoglobin 12.6 G/DL (14.2-18.0) L Hematocrit 43.0 % (42.0-52.0) Mean Corpuscular Volume 65 FL (80-99) L Mean Corpuscular Hemoglobin 19.1 PG (27.0-31.0) L Mean Corpuscular Hemoglobin Concent 29.4 G/DL (32.0-36.0) L Red Cell Distribution Width 19.6 % (11.6-14.8) H Platelet Count 104 K/UL (150-450) L Mean Platelet Volume 7.8 FL (6.5-10.1) Neutrophils (%) (Auto) 77.9 % (45.0-75.0) H Lymphocytes (%) (Auto) 9.3 % (20.0-45.0) L Monocytes (%) (Auto) 9.8 % (1.0-10.0) Eosinophils (%) (Auto) 1.8 % (0.0-3.0) Basophils (%) (Auto) 1.3 % (0.0-2.0) Sodium Level 145 MMOL/L (136-145) Potassium Level 3.5 MMOL/L (3.5-5.1) Chloride Level 105 MMOL/L (98-107) Carbon Dioxide Level 39 MMOL/L (21-32) H Anion Gap -1 mmol/L (5-15) L Blood Urea Nitrogen 21 mg/dL (7-18) H Creatinine 1.7 MG/DL (0.55-1.30) H Estimat Glomerular Filtration Rate 44.9 mL/min (>60) Glucose Level 99 MG/DL (74-106) Calcium Level 8.1 MG/DL (8.5-10.1) L Phosphorus Level 5.4 MG/DL (2.5-4.9) H Magnesium Level 1.6 MG/DL (1.8-2.4) L Total Bilirubin 1.4 MG/DL (0.2-1.0) H Direct Bilirubin 0.4 MG/DL (0.0-0.3) H Aspartate Amino Transf (AST/SGOT) 31 U/L (15-37) Alanine Aminotransferase (ALT/SGPT) 15 U/L (12-78) Alkaline Phosphatase 43 U/L (46-116) L Total Protein 6.5 G/DL (6.4-8.2) Albumin 2.1 G/DL (3.4-5.0) L Globulin 4.4 g/dL Albumin/Globulin Ratio 0.5 (1.0-2.7) L Arterial Blood pH 7.382 (7.350-7.450) Arterial Blood Partial Pressure CO2 76.3 mmHg (35.0-45.0) *H Arterial Blood Partial Pressure O2 53.1 mmHg (75.0-100.0) L Arterial Blood HCO3 44.3 mmol/L (22.0-26.0) H Arterial Blood Oxygen Saturation 83.5 % (92.0-98.0) L Arterial Blood Base Excess 15.5 Naif Test Positive DWAYNE GROSS Oct 09, 2017 10:59
[2017-10-09 11:20] LABS: CREATINE KINASE 123 U/L (26-308)
[2017-10-09 11:45] LABS: APPEARANCE,URINE CLEAR; BILIRUBIN, URINE NEGATIVE (NEGATIVE); COLOR,URINE PALE YELLOW; GLUCOSE, URINE (UA) NEGATIVE (NEGATIVE); KETONES,URINE NEGATIVE (NEGATIVE); LEUKOCYTE ESTERASE ,URINE 2+ (NEGATIVE); NITRITE,URINE NEGATIVE (NEGATIVE); PH,URINE 5 (4.5-8.0); PROTEIN,URINE 1+ (NEGATIVE); UROBILINOGEN,URINE NORMAL MG/DL (0.0-1.0)
--- NOTE | 2017-10-09 13:34 | Consultation ---
Consult Note Consult Note asked to eval for renal failure 42-year-old male presents ED for evaluation. Patient states he's been having increased pain and swelling to his scrotal area x1 day. Pain is a 10 out of 10 , throbbing, nonradiating. Denies fevers or chills. Denies chest pain or shortness of breath. Denies nausea or vomiting. No other aggravating relieving factors. Denies any other associated symptoms Assessment/Plan acute renal failure- rising Cr Acute Respiratory distress , ? aspiration pneumonia Acute Pulmonary edema Anasarca scotal cellutis Morbid obesity. Thrombocytopenia. Abnormal blood sugar. Anemia. Plan: Keep BP in check pulm support avoid nephrotoxics monitor renal parameters per consultants per orders Left ventricular ejection fraction estimated to be grossly normal. Mild left ventricular hypertrophy. JAY YANCEY Oct 09, 2017 13:34
--- NOTE | 2017-10-09 16:02 | Diagnostic Imaging Report ---
Indication: Reason For Exam: [id number] Technique: One view of the chest Comparison: 10/08/2017 Findings: Again demonstrated is an endotracheal tube. Interim nasogastric intubation, nasogastric tube tip projecting beyond the edge of image. There is slightly better inspiration. Infiltrate at the right lung base persists but may be slightly improved. Retrocardiac consolidation may be worsening, however. Small bilateral pleural effusions persist. Impression: Evidence of slightly improving right, worsening left basilar infiltrates versus edema. Other stable findings as described
[2017-10-09] MEDS ORDERED: D5NS 1000ml IV ONE ×2 (16:27→16:34)
--- NOTE | 2017-10-09 16:48 | Infectious Diseases Prog Note ---
Assessment/Plan Assessment/Plan ASSESSMENT: The patient is a 42-year-old male with, Possible aspiration pneumonia versus community-acquired pneumonia. 10/09 Xray worsening left basilar infiltrates versus edema Probable scrotal cellulitis versus discoloration of genitalia due to edema. Ventilator-dependent respiratory failure. Fever x1. Rule out bacteremia. PICC 10/09 VDRF Congestive heart failure. PLAN: cont pt on vancomycin and Zosyn and Doxy d# 2 Monitor CBC. Monitor BMP. Monitor cultures (blood, urine, and sputum). Continue vent support. Monitor chest x-ray Subjective Allergies: Coded Allergies: No Known Allergies (Unverified , 10/06/17) Subjective getting a PICC line Objective Vital Signs Last 24 Hour Vital Signs Date Time Temp Pulse Resp B/P (MAP) Pulse Ox O2 Delivery O2 Flow Rate FiO2 10/09/17 15:20 89 18 100 10/09/17 14:30 84 18 109/58 87 Mechanical Ventilator 100 10/09/17 14:00 86 18 118/58 87 Mechanical Ventilator 100 10/09/17 14:00 18 10/09/17 14:00 18 10/09/17 13:30 86 18 120/56 88 Mechanical Ventilator 100 10/09/17 13:22 86 18 100 10/09/17 13:00 99.5 85 18 121/61 90 Mechanical Ventilator 100 10/09/17 13:00 18 10/09/17 13:00 18 10/09/17 12:30 86 18 120/61 90 Mechanical Ventilator 100 10/09/17 12:00 18 10/09/17 12:00 18 10/09/17 12:00 88 18 126/59 91 Mechanical Ventilator 100 10/09/17 12:00 100 10/09/17 11:59 18 10/09/17 11:59 18 10/09/17 11:57 89 10/09/17 11:30 93 18 123/64 89 Mechanical Ventilator 100 10/09/17 11:00 93 18 127/65 88 Mechanical Ventilator 100 10/09/17 11:00 18 10/09/17 11:00 18 10/09/17 10:55 99.9 10/09/17 10:38 98 18 100 10/09/17 10:30 96 18 128/66 86 Mechanical Ventilator 100 10/09/17 10:00 99 19 129/66 87 Mechanical Ventilator 100 10/09/17 10:00 20 10/09/17 10:00 20 10/09/17 09:30 99 20 126/68 83 Mechanical Ventilator 100 10/09/17 09:06 100 18 100 10/09/17 09:01 109 10/09/17 09:00 22 10/09/17 09:00 22 10/09/17 09:00 95 18 125/63 89 Mechanical Ventilator 100 10/09/17 08:45 97 18 125/65 86 Mechanical Ventilator 100 10/09/17 08:30 102 24 130/74 86 Mechanical Ventilator 100 10/09/17 08:15 103 23 132/64 76 Mechanical Ventilator 100 10/09/17 08:00 25 10/09/17 08:00 23 10/09/17 08:00 100 10/09/17 08:00 109 25 92/27 87 Mechanical Ventilator 100 10/09/17 07:30 99 23 122/64 85 Mechanical Ventilator 100 10/09/17 07:27 102 20 100 10/09/17 07:00 23 10/09/17 07:00 23 10/09/17 07:00 100.0 96 19 133/59 92 Mechanical Ventilator 100 10/09/17 06:30 90 18 133/55 91 Mechanical Ventilator 100 10/09/17 06:00 18 10/09/17 06:00 18 10/09/17 06:00 90 18 121/55 92 Mechanical Ventilator 100 10/09/17 05:30 89 18 107/54 92 Mechanical Ventilator 100 10/09/17 05:04 20 10/09/17 05:00 95 19 107/54 91 Mechanical Ventilator 100 10/09/17 05:00 19 10/09/17 05:00 19 10/09/17 04:35 97 19 100 10/09/17 04:30 97 19 108/54 91 Mechanical Ventilator 100 10/09/17 04:00 100 10/09/17 04:00 18 10/09/17 04:00 18 10/09/17 04:00 100 10/09/17 04:00 100.0 100 18 104/52 90 Mechanical Ventilator 100 10/09/17 03:30 101 20 110/50 90 Mechanical Ventilator 100 10/09/17 03:30 99 18 100 10/09/17 03:00 103 22 111/42 91 Mechanical Ventilator 100 10/09/17 03:00 22 10/09/17 03:00 22 10/09/17 02:30 104 19 115/49 91 Mechanical Ventilator 100 10/09/17 02:27 20 10/09/17 02:00 24 10/09/17 02:00 24 10/09/17 02:00 104 19 105/48 91 Mechanical Ventilator 100 10/09/17 01:30 106 21 112/46 92 Mechanical Ventilator 100 10/09/17 01:21 108 18 100 10/09/17 01:00 24 10/09/17 01:00 24 10/09/17 01:00 110 24 110/53 91 Mechanical Ventilator 100 10/09/17 00:30 104 25 112/54 91 Mechanical Ventilator 100 10/09/17 00:00 100 10/09/17 00:00 105 10/09/17 00:00 24 10/09/17 00:00 24 10/09/17 00:00 100.8 105 24 114/56 91 Mechanical Ventilator 100 10/08/17 23:30 106 18 100 10/08/17 23:30 105 23 113/47 91 Mechanical Ventilator 100 10/08/17 23:00 31 10/08/17 23:00 31 10/08/17 23:00 106 21 118/59 89 Mechanical Ventilator 100 10/08/17 22:30 104 25 126/62 90 Mechanical Ventilator 100 10/08/17 22:00 104 23 123/63 90 Mechanical Ventilator 100 10/08/17 22:00 25 10/08/17 22:00 25 10/08/17 21:30 107 24 118/60 90 Mechanical Ventilator 100 10/08/17 21:30 105 20 100 10/08/17 21:00 28 10/08/17 21:00 28 10/08/17 21:00 108 28 116/54 90 Mechanical Ventilator 100 10/08/17 20:30 108 25 125/55 93 Mechanical Ventilator 100 10/08/17 20:00 108 10/08/17 20:00 100.0 101 18 110/60 93 Mechanical Ventilator 100 10/08/17 20:00 25 10/08/17 20:00 25 10/08/17 20:00 100 10/08/17 19:30 116 28 100 10/08/17 19:30 110 25 105/76 92 Mechanical Ventilator 100 10/08/17 19:00 20 10/08/17 19:00 20 10/08/17 19:00 103 20 109/76 92 Mechanical Ventilator 100 10/08/17 18:30 99 18 124/54 91 Mechanical Ventilator 100 10/08/17 18:00 103 19 124/54 92 Mechanical Ventilator 100 10/08/17 18:00 18 10/08/17 18:00 18 10/08/17 17:34 20 10/08/17 17:30 104 18 115/53 94 Mechanical Ventilator 100 10/08/17 17:00 115 26 130/67 94 Mechanical Ventilator 100 10/08/17 17:00 22 Height (Feet): 5 Height (Inches): 4.00 Weight (Pounds): 356 HEENT: anicteric Respiratory/Chest: no respiratory distress Cardiovascular: regular rhythm Abdomen: non distended Microbiology Date/Time Source Procedure Growth Status 10/06/17 22:15 Blood Blood Culture - Preliminary NO GROWTH AFTER 48 HOURS Resulted 10/06/17 22:15 Blood Blood Culture - Preliminary NO GROWTH AFTER 48 HOURS Resulted 10/08/17 21:00 Sputum Gram Stain - Final Resulted 10/08/17 21:00 Sputum Sputum Culture Pending Resulted 10/08/17 21:00 Urine,Clean Catch Urine Culture - Preliminary NO GROWTH AFTER 24 HOURS Resulted Laboratory Tests Test 10/09/17 05:30 10/09/17 09:10 10/09/17 11:30 White Blood Count 9.8 K/UL (4.8-10.8) Red Blood Count 6.61 M/UL (4.70-6.10) H Hemoglobin 12.6 G/DL (14.2-18.0) L Hematocrit 43.0 % (42.0-52.0) Mean Corpuscular Volume 65 FL (80-99) L Mean Corpuscular Hemoglobin 19.1 PG (27.0-31.0) L Mean Corpuscular Hemoglobin Concent 29.4 G/DL (32.0-36.0) L Red Cell Distribution Width 19.6 % (11.6-14.8) H Platelet Count 104 K/UL (150-450) L Mean Platelet Volume 7.8 FL (6.5-10.1) Neutrophils (%) (Auto) 77.9 % (45.0-75.0) H Lymphocytes (%) (Auto) 9.3 % (20.0-45.0) L Monocytes (%) (Auto) 9.8 % (1.0-10.0) Eosinophils (%) (Auto) 1.8 % (0.0-3.0) Basophils (%) (Auto) 1.3 % (0.0-2.0) Sodium Level 145 MMOL/L (136-145) Potassium Level 3.5 MMOL/L (3.5-5.1) Chloride Level 105 MMOL/L (98-107) Carbon Dioxide Level 39 MMOL/L (21-32) H Anion Gap -1 mmol/L (5-15) L Blood Urea Nitrogen 21 mg/dL (7-18) H Creatinine 1.7 MG/DL (0.55-1.30) H Estimat Glomerular Filtration Rate 44.9 mL/min (>60) Glucose Level 99 MG/DL (74-106) Uric Acid 12.3 MG/DL (2.6-7.2) H Calcium Level 8.1 MG/DL (8.5-10.1) L Phosphorus Level 5.4 MG/DL (2.5-4.9) H Magnesium Level 1.6 MG/DL (1.8-2.4) L Total Bilirubin 1.4 MG/DL (0.2-1.0) H Direct Bilirubin 0.4 MG/DL (0.0-0.3) H Aspartate Amino Transf (AST/SGOT) 31 U/L (15-37) Alanine Aminotransferase (ALT/SGPT) 15 U/L (12-78) Alkaline Phosphatase 43 U/L (46-116) L Total Creatine Kinase 123 U/L (26-308) Total Protein 6.5 G/DL (6.4-8.2) Albumin 2.1 G/DL (3.4-5.0) L Globulin 4.4 g/dL Albumin/Globulin Ratio 0.5 (1.0-2.7) L Arterial Blood pH 7.382 (7.350-7.450) Arterial Blood Partial Pressure CO2 76.3 mmHg (35.0-45.0) *H Arterial Blood Partial Pressure O2 53.1 mmHg (75.0-100.0) L Arterial Blood HCO3 44.3 mmol/L (22.0-26.0) H Arterial Blood Oxygen Saturation 83.5 % (92.0-98.0) L Arterial Blood Base Excess 15.5 Naif Test Positive Urine Color Pale yellow Urine Appearance Clear Urine pH 5 (4.5-8.0) Urine Specific [place] 1.010 (1.005-1.035) Urine Protein 1+ (NEGATIVE) H Urine Glucose (UA) Negative (NEGATIVE) Urine Ketones Negative (NEGATIVE) Urine Occult Blood 2+ (NEGATIVE) H Urine Nitrite Negative (NEGATIVE) Urine Bilirubin Negative (NEGATIVE) Urine Urobilinogen Normal MG/DL (0.0-1.0) Urine Leukocyte Esterase 2+ (NEGATIVE) H Urine RBC 2-4 /HPF (0 - 0) H Urine WBC 2-4 /HPF (0 - 0) Urine Squamous Epithelial Cells Occasional /LPF Urine Bacteria Occasional /HPF (NONE) Urine Eosinophils Negative Urine Random Sodium 61 MEQ/L (20-110) Urine Potassium Timed 28 mmol/L (12-62) Current Medications Medications (Trade) Dose Ordered Sig/Prince Route PRN Reason Start Time Stop Time Status Last Admin Dose Admin Acetaminophen (Tylenol) 650 mg EVERY 4 HOURS PRN NG Mild Pain/Temp > 100.5 10/09/17 10:15 11/08/17 10:14 Chlorhexidine Gluconate (Sol-Hex 2%) 1 applic DAILY@1999 TOPIC 10/09/17 20:00 11/08/17 19:59 Doxycycline Monohydrate (Vibramycin) 100 mg Q12HR@0600,1800 GT 10/08/17 16:30 10/15/17 16:29 10/09/17 05:59 Fentanyl Citrate 1000 mcg/Sodium Chloride 100 ml @ 0 mls/hr Q24H IV 10/07/17 19:00 10/14/17 18:59 10/09/17 12:00 Haloperidol Lactate 5 mg/ Dextrose 56 ml @ 224 mls/hr Q1H PRN IVPB BREAKTHROUGH AGITATION 10/08/17 17:00 11/07/17 16:59 10/09/17 07:12 Heparin Sodium (Porcine) (Heparin 5000 units/ml) 5,000 units DAILY SUBQ 10/08/17 11:00 11/07/17 10:59 10/08/17 11:13 Lorazepam (Ativan 2mg/ml 1ml) 2 mg Q4H PRN IV For Anxiety 10/07/17 11:00 10/14/17 10:59 10/09/17 00:26 Midazolam HCl 100 ml @ 0 mls/hr Q24H IVPB 10/07/17 18:30 10/14/17 18:29 10/09/17 12:00 Morphine Sulfate (Morphine Sulfate) 4 mg Q4H PRN IVP For Pain 10/07/17 11:00 10/14/17 10:59 Pantoprazole (Protonix) 40 mg DAILY IV 10/07/17 11:00 11/06/17 10:59 10/09/17 08:35 Piperacillin Sod/ Tazobactam Sod 3.375 gm/Dextrose 55 ml @ 13.75 mls/ hr Q8H IVPB 10/07/17 16:00 10/14/17 15:59 10/09/17 08:35 Sodium Chloride 1,000 ml @ 50 mls/hr Q20H IV 10/09/17 14:30 11/08/17 14:29 10/09/17 14:47 Vancomycin HCl (Vanco rx to dose) 1 ea DAILY PRN MISC PER RX PROTOCOL 10/07/17 11:00 11/06/17 10:59 Vancomycin HCl/ Dextrose 250 ml @ 125 mls/hr Q12H IVPB 10/07/17 10:00 10/12/17 09:59 10/09/17 12:50 CATALINA PARRA M.D. Oct 09, 2017 16:48
[2017-10-09] MEDS: Dyna-Hex 2% Top Sol 2oz TOPIC SCH (20:24)
[2017-10-10] VITALS (48 sets, daily range): BP systolic 103–145; BP diastolic 43–69
[2017-10-10] MEDS: Piperacillin/Tazobactam 3.375 GM in D5W 55 ML IVPB SCH ×3 (00:03→16:19)
[2017-10-10] MEDS: Midazolam/D5W 100ml 100 ML IVPB SCH ×3 (00:56→14:28)
[2017-10-10 05:21] LABS: EOSINOPHILS % (AUTO) 1.4 % (0.0-3.0); HEMATOCRIT 43.7 % (42.0-52.0); HEMOGLOBIN 12.4 G/DL (14.2-18.0); LYMPHOCYTES % (AUTO) 5.6 % (20.0-45.0); MEAN CORPUSCULAR VOLUME 66 FL (80-99); MONOCYTES % (AUTO) 8.8 % (1.0-10.0); NEUTROPHILS % (AUTO) 83.3 % (45.0-75.0); PLATELET COUNT 104 K/UL (150-450); RED BLOOD COUNT 6.66 M/UL (4.70-6.10); RED CELL DISTRIBUTION WIDTH 19.8 % (11.6-14.8); WHITE BLOOD COUNT 10.6 K/UL (4.8-10.8)
[2017-10-10] MEDS: Vancomycin 1.5 GM/D5W 250ML IVPB SCH (05:57)
[2017-10-10 06:10] LABS: ALANINE AMINOTRANSFERASE 13 U/L (12-78); ALBUMIN 2.1 G/DL (3.4-5.0); ALBUMIN/GLOBULIN RATIO 0.5 (1.0-2.7); ALKALINE PHOSPHATASE 44 U/L (46-116); ANION GAP -2 mmol/L (5-15); ASPARTATE AMINO TRANSFERASE 27 U/L (15-37); BILIRUBIN,TOTAL 1.9 MG/DL (0.2-1.0); BLOOD UREA NITROGEN 20 mg/dL (7-18); CALCIUM 8.1 MG/DL (8.5-10.1); CARBON DIOXIDE 40 MMOL/L (21-32); CHLORIDE 106 MMOL/L (98-107); CHOLESTEROL 55 MG/DL (< 200); CREATININE 1.8 MG/DL (0.55-1.30); HDL CHOLESTEROL 16 MG/DL (40-60); PHOSPHORUS 4.2 MG/DL (2.5-4.9); POTASSIUM 3.4 MMOL/L (3.5-5.1); SODIUM 147 MMOL/L (136-145); TRIGLYCERIDES 51 MG/DL (30-150)
[2017-10-10 06:12] LABS: CREATINE KINASE 54 U/L (26-308); GAMMA GLUTAMYL TRANSPEPTIDASE 17 U/L (5-85)
[2017-10-10 07:14] LABS: BILIRUBIN,DIRECT 0.5 MG/DL (0.0-0.3)
[2017-10-10] MEDS: Pantoprazole Inj IV SCH (08:06)
[2017-10-10] MEDS: Heparin 5000 units/ml inj SUBQ SCH (08:07)
--- NOTE | 2017-10-10 09:29 | Diagnostic Imaging Report ---
Indications: Needs long-term IV access Technique: Procedure performed at bedside. Procedural timeout performed. Ultrasound confirms patent compressible right basilic vein. Total sterile technique, including sterile probe cover and sterile gel, sterile gloves, hand hygiene, hat, mask,, sterile gown, large sterile drape, and preparation with 2% chlorhexidine utilized. Local anesthesia with 1% lidocaine. Under real-time ultrasound guidance, puncture right basilic vein using 21-gauge needle, passage 0.018 guidewire, exchange for 5 [place] peel-away sheath. 5 [place] Bard dual-lumen power PICC cut to 40 cm. It was inserted through the peel-away sheath. Peel-away sheath and guidewire removed. Catheter fixed to the skin. Both catheter ports aspirated and flushed. Patient tolerated procedure well, without immediate complication. Followup chest x-ray obtained, demonstrates that the catheter makes a hairpin loop in the right axillary vein. This was corrected by insertion of a guidewire. Subsequent chest radiograph obtained, demonstrating catheter tip position at the cavoatrial junction Impression: Successful bedside placement of right arm PICC under sonographic guidance, as described above.
--- NOTE | 2017-10-10 09:31 | Diagnostic Imaging Report ---
Indication: Abnormal renal function tests Technique: Grayscale and duplex images of the kidneys, retroperitoneum, and bladder were obtained. Comparison: None Findings: Right kidney measures 13.1 cm in length. Left kidney could not be convincingly demonstrated due to patient body habitus and difficulty positioning patient. Right kidney demonstrates normal echogenicity. No hydronephrosis. No focal abnormality. Normal inferior vena cava. Bladder is distended, calculated volume 1500 mL. Impression: Nonvisualized left kidney No right hydronephrosis Markedly distended bladder.
--- NOTE | 2017-10-10 09:43 | General Progress Note ---
Assessment/Plan Assessment/Plan 1. VDRF 2. Acute hypoxemic respiratory failure. Differential diagnosis are pulmonary edema, thromboembolic events. 2. Pulmonary infiltrate- Aspiration PNA?! 2. Cellulitis of the scrotal area. 3. Morbid obesity. 4. Thrombocytopenia. 5. Abnormal blood sugar. 6. Anemia. 7. Gastrointestinal and deep vein thrombosis prophylaxes. PLAN OF CARE: NOtes from Infectious Diseases Dr. Pineda, Pulmonary Dr. Casas , reviewed. Continue with current critical care management. comment: patient seen and examined on Oct 09. time of this dictation doesn't reflect time of encounter Subjective Allergies: Coded Allergies: No Known Allergies (Unverified , 10/06/17) Objective Last 24 Hour Vital Signs Date Time Temp Pulse Resp B/P (MAP) Pulse Ox O2 Delivery O2 Flow Rate FiO2 10/10/17 09:30 105 20 121/69 80 Mechanical Ventilator 100 10/10/17 09:24 107 19 100 10/10/17 09:00 106 19 121/69 80 Mechanical Ventilator 100 10/10/17 08:34 98.2 10/10/17 08:30 97 19 108/62 86 Mechanical Ventilator 100 10/10/17 08:04 17 10/10/17 08:00 98.2 99 19 108/60 86 Mechanical Ventilator 100 10/10/17 08:00 98 10/10/17 08:00 100 10/10/17 07:30 98 19 116/58 86 Mechanical Ventilator 100 10/10/17 07:29 100 18 100 10/10/17 07:00 98 19 113/60 89 Mechanical Ventilator 100 10/10/17 06:30 101 20 111/58 89 Mechanical Ventilator 100 10/10/17 06:00 102 20 117/67 86 Mechanical Ventilator 100 10/10/17 05:30 101 22 131/67 77 Mechanical Ventilator 100 10/10/17 05:29 102 20 100 10/10/17 05:00 97 19 115/69 89 Mechanical Ventilator 100 10/10/17 04:30 88 18 106/60 86 Mechanical Ventilator 100 10/10/17 04:00 100 10/10/17 04:00 98.9 90 18 108/63 86 Mechanical Ventilator 100 10/10/17 04:00 90 10/10/17 03:30 89 18 109/61 88 Mechanical Ventilator 100 10/10/17 03:28 90 18 100 10/10/17 03:00 90 18 106/57 89 Mechanical Ventilator 100 10/10/17 02:30 94 18 106/57 90 Mechanical Ventilator 100 10/10/17 02:00 97 19 109/56 90 Mechanical Ventilator 100 10/10/17 01:30 101 21 113/65 88 Mechanical Ventilator 100 10/10/17 01:22 97 18 100 10/10/17 01:00 18 10/10/17 01:00 88 18 113/65 87 Mechanical Ventilator 100 10/10/17 00:56 18 10/10/17 00:37 98.9 10/10/17 00:30 83 18 105/59 86 Mechanical Ventilator 100 10/10/17 00:04 18 10/10/17 00:00 85 10/10/17 00:00 100 10/10/17 00:00 99.2 85 18 103/57 87 Mechanical Ventilator 100 10/09/17 23:30 86 18 102/55 86 Mechanical Ventilator 100 10/09/17 23:12 88 18 100 10/09/17 23:00 89 18 104/57 86 Mechanical Ventilator 100 10/09/17 22:30 90 18 105/59 82 Mechanical Ventilator 100 10/09/17 22:00 91 18 109/64 87 Mechanical Ventilator 100 10/09/17 21:30 93 18 106/57 83 Mechanical Ventilator 100 10/09/17 21:20 89 18 100 10/09/17 21:00 91 18 106/51 87 Mechanical Ventilator 100 10/09/17 21:00 18 10/09/17 21:00 18 10/09/17 20:30 96 18 109/55 86 Mechanical Ventilator 100 10/09/17 20:00 96 19 112/62 84 Mechanical Ventilator 100 10/09/17 20:00 96 10/09/17 20:00 19 10/09/17 20:00 19 10/09/17 20:00 100 10/09/17 19:30 99.2 104 21 101/62 85 Mechanical Ventilator 100 10/09/17 19:22 91 18 100 10/09/17 19:00 91 18 106/62 84 Mechanical Ventilator 100 10/09/17 19:00 18 10/09/17 18:30 91 18 109/62 83 Mechanical Ventilator 100 10/09/17 18:00 93 18 103/57 84 Mechanical Ventilator 100 10/09/17 18:00 18 10/09/17 18:00 18 10/09/17 17:30 94 18 103/51 85 Mechanical Ventilator 100 10/09/17 17:06 97 18 100 10/09/17 17:00 18 10/09/17 17:00 18 10/09/17 17:00 95 18 104/58 88 Mechanical Ventilator 100 10/09/17 16:30 98 19 105/60 85 Mechanical Ventilator 100 10/09/17 16:15 101 21 109/61 82 Mechanical Ventilator 100 10/09/17 16:00 99.5 102 24 119/66 91 Mechanical Ventilator 100 10/09/17 16:00 24 10/09/17 16:00 24 10/09/17 16:00 100 10/09/17 15:45 96 21 126/76 85 Mechanical Ventilator 100 10/09/17 15:42 94 10/09/17 15:30 90 18 118/70 79 Mechanical Ventilator 100 10/09/17 15:20 89 18 100 10/09/17 15:00 82 18 86/53 86 Mechanical Ventilator 100 10/09/17 15:00 18 10/09/17 15:00 18 10/09/17 14:30 84 18 109/58 87 Mechanical Ventilator 100 10/09/17 14:00 86 18 118/58 87 Mechanical Ventilator 100 10/09/17 14:00 18 10/09/17 14:00 18 10/09/17 13:30 86 18 120/56 88 Mechanical Ventilator 100 10/09/17 13:22 86 18 100 10/09/17 13:00 99.5 85 18 121/61 90 Mechanical Ventilator 100 10/09/17 13:00 18 10/09/17 13:00 18 10/09/17 12:30 86 18 120/61 90 Mechanical Ventilator 100 10/09/17 12:00 18 10/09/17 12:00 18 10/09/17 12:00 88 18 126/59 91 Mechanical Ventilator 100 10/09/17 12:00 100 10/09/17 11:59 18 10/09/17 11:59 18 10/09/17 11:57 89 10/09/17 11:30 93 18 123/64 89 Mechanical Ventilator 100 10/09/17 11:00 93 18 127/65 88 Mechanical Ventilator 100 10/09/17 11:00 18 10/09/17 11:00 18 10/09/17 10:55 99.9 10/09/17 10:38 98 18 100 10/09/17 10:30 96 18 128/66 86 Mechanical Ventilator 100 10/09/17 10:00 99 19 129/66 87 Mechanical Ventilator 100 10/09/17 10:00 20 10/09/17 10:00 20 Intake and Output 10/10/17 10/11/17 19:00 07:00 Intake Total 60 ml Output Total 100 ml Balance -40 ml Tube Feeding 60 ml Output Urine Total 100 ml # Voids 1 Laboratory Tests 10/09/17 11:30: Urine Color Pale yellow, Urine Appearance Clear, Urine pH 5, Urine Specific [place] 1.010, Urine Protein 1+H, Urine Glucose (UA) Negative, Urine Ketones Negative, Urine Occult Blood 2+H, Urine Nitrite Negative, Urine Bilirubin Negative, Urine Urobilinogen Normal, Urine Leukocyte Esterase 2+H, Urine RBC 2- 4H, Urine WBC 2-4, Urine Squamous Epithelial Cells Occasional, Urine Bacteria Occasional, Urine Eosinophils Negative, Urine Random Sodium 61, Urine Potassium Timed 28 10/09/17 20:50: Vancomycin Level Trough 22.6H 10/10/17 04:59: White Blood Count 10.6, Red Blood Count 6.66H, Hemoglobin 12.4L, Hematocrit 43.7 , Mean Corpuscular Volume 66L, Mean Corpuscular Hemoglobin 18.7L, Mean Corpuscular Hemoglobin Concent 28.4L, Red Cell Distribution Width 19.8H, Platelet Count 104L, Mean Platelet Volume 9.7, Neutrophils (%) (Auto) 83.3H, Lymphocytes (%) (Auto) 5.6L, Monocytes (%) (Auto) 8.8, Eosinophils (%) (Auto) 1.4, Basophils (%) (Auto) 1.0, Sodium Level 147H, Potassium Level 3.4L, Chloride Level 106, Carbon Dioxide Level 40H, Anion Gap -2L, Blood Urea Nitrogen 20H, Creatinine 1.8H, Estimat Glomerular Filtration Rate 42.0, Glucose Level 68L, Hemoglobin A1c 7.0H, Uric Acid 10.6H, Calcium Level 8.1L, Phosphorus Level 4.2, Magnesium Level 1.6L, Total Bilirubin 1.9H, Direct Bilirubin 0.5H, Gamma Glutamyl Transpeptidase 17, Aspartate Amino Transf (AST/SGOT) 27, Alanine Aminotransferase (ALT/SGPT) 13, Alkaline Phosphatase 44L, Total Creatine Kinase 54, Troponin I 0.000, C-Reactive Protein, Quantitative 23.6H, Pro-B-Type Natriuretic Peptide 1670H, Total Protein 6.7, Albumin 2.1L, Globulin 4.6, Albumin/Globulin Ratio 0.5L, Triglycerides Level 51, Cholesterol Level 55, LDL Cholesterol 38, HDL Cholesterol 16L, Cholesterol/HDL Ratio 3.4, Thyroid Stimulating Hormone (TSH) 1.189 10/10/17 05:00: Urine Random Sodium 80 10/10/17 09:28: Arterial Blood pH 7.365, Arterial Blood Partial Pressure CO2 75.2*H, Arterial Blood Partial Pressure O2 48.6*L, Arterial Blood HCO3 42.0H, Arterial Blood Oxygen Saturation 81.0L, Arterial Blood Base Excess 13.1, Naif Test Positive Height (Feet): 5 Height (Inches): 4.00 Weight (Pounds): 356 Nery Combs MD Oct 10, 2017 09:43
--- NOTE | 2017-10-10 09:46 | General Progress Note ---
Assessment/Plan Status: unchanged Assessment/Plan 1. VDRF 2. Acute hypoxemic respiratory failure. Differential diagnosis pulmonary edema 2. Pulmonary infiltrate- Aspiration PNA, edema 2. Cellulitis of the scrotal area. 3. Morbid obesity. 5. ARF 6. Obstructive uropathy 4. Thrombocytopenia. 5. DM-2 6. Anemia. 7. Gastrointestinal and deep vein thrombosis prophylaxes. 8. Psoriasis PLAN OF CARE: NOtes from Infectious Diseases Dr. Pineda, Pulmonary Dr. Casas , Nephrology reviewed. status post insertion of urinary kellogg. Persistent Hypoxemia current pulmonary management Subjective ROS Limited/Unobtainable: Yes - limited eval. as patient is intubated Allergies: Coded Allergies: No Known Allergies (Unverified , 10/06/17) Objective Last 24 Hour Vital Signs Date Time Temp Pulse Resp B/P (MAP) Pulse Ox O2 Delivery O2 Flow Rate FiO2 10/10/17 09:30 105 20 121/69 80 Mechanical Ventilator 100 10/10/17 09:24 107 19 100 10/10/17 09:00 106 19 121/69 80 Mechanical Ventilator 100 10/10/17 08:34 98.2 10/10/17 08:30 97 19 108/62 86 Mechanical Ventilator 100 10/10/17 08:04 17 10/10/17 08:00 98.2 99 19 108/60 86 Mechanical Ventilator 100 10/10/17 08:00 98 10/10/17 08:00 100 10/10/17 07:30 98 19 116/58 86 Mechanical Ventilator 100 10/10/17 07:29 100 18 100 10/10/17 07:00 98 19 113/60 89 Mechanical Ventilator 100 10/10/17 06:30 101 20 111/58 89 Mechanical Ventilator 100 10/10/17 06:00 102 20 117/67 86 Mechanical Ventilator 100 10/10/17 05:30 101 22 131/67 77 Mechanical Ventilator 100 10/10/17 05:29 102 20 100 10/10/17 05:00 97 19 115/69 89 Mechanical Ventilator 100 10/10/17 04:30 88 18 106/60 86 Mechanical Ventilator 100 10/10/17 04:00 100 10/10/17 04:00 98.9 90 18 108/63 86 Mechanical Ventilator 100 10/10/17 04:00 90 10/10/17 03:30 89 18 109/61 88 Mechanical Ventilator 100 10/10/17 03:28 90 18 100 10/10/17 03:00 90 18 106/57 89 Mechanical Ventilator 100 10/10/17 02:30 94 18 106/57 90 Mechanical Ventilator 100 10/10/17 02:00 97 19 109/56 90 Mechanical Ventilator 100 10/10/17 01:30 101 21 113/65 88 Mechanical Ventilator 100 10/10/17 01:22 97 18 100 10/10/17 01:00 18 10/10/17 01:00 88 18 113/65 87 Mechanical Ventilator 100 10/10/17 00:56 18 10/10/17 00:37 98.9 10/10/17 00:30 83 18 105/59 86 Mechanical Ventilator 100 10/10/17 00:04 18 10/10/17 00:00 85 10/10/17 00:00 100 10/10/17 00:00 99.2 85 18 103/57 87 Mechanical Ventilator 100 10/09/17 23:30 86 18 102/55 86 Mechanical Ventilator 100 10/09/17 23:12 88 18 100 10/09/17 23:00 89 18 104/57 86 Mechanical Ventilator 100 10/09/17 22:30 90 18 105/59 82 Mechanical Ventilator 100 10/09/17 22:00 91 18 109/64 87 Mechanical Ventilator 100 10/09/17 21:30 93 18 106/57 83 Mechanical Ventilator 100 10/09/17 21:20 89 18 100 10/09/17 21:00 91 18 106/51 87 Mechanical Ventilator 100 10/09/17 21:00 18 10/09/17 21:00 18 10/09/17 20:30 96 18 109/55 86 Mechanical Ventilator 100 10/09/17 20:00 96 19 112/62 84 Mechanical Ventilator 100 10/09/17 20:00 96 10/09/17 20:00 19 10/09/17 20:00 19 10/09/17 20:00 100 10/09/17 19:30 99.2 104 21 101/62 85 Mechanical Ventilator 100 10/09/17 19:22 91 18 100 10/09/17 19:00 91 18 106/62 84 Mechanical Ventilator 100 10/09/17 19:00 18 10/09/17 18:30 91 18 109/62 83 Mechanical Ventilator 100 10/09/17 18:00 93 18 103/57 84 Mechanical Ventilator 100 10/09/17 18:00 18 10/09/17 18:00 18 10/09/17 17:30 94 18 103/51 85 Mechanical Ventilator 100 10/09/17 17:06 97 18 100 10/09/17 17:00 18 10/09/17 17:00 18 10/09/17 17:00 95 18 104/58 88 Mechanical Ventilator 100 10/09/17 16:30 98 19 105/60 85 Mechanical Ventilator 100 10/09/17 16:15 101 21 109/61 82 Mechanical Ventilator 100 10/09/17 16:00 99.5 102 24 119/66 91 Mechanical Ventilator 100 10/09/17 16:00 24 10/09/17 16:00 24 10/09/17 16:00 100 10/09/17 15:45 96 21 126/76 85 Mechanical Ventilator 100 10/09/17 15:42 94 10/09/17 15:30 90 18 118/70 79 Mechanical Ventilator 100 10/09/17 15:20 89 18 100 10/09/17 15:00 82 18 86/53 86 Mechanical Ventilator 100 10/09/17 15:00 18 10/09/17 15:00 18 10/09/17 14:30 84 18 109/58 87 Mechanical Ventilator 100 10/09/17 14:00 86 18 118/58 87 Mechanical Ventilator 100 10/09/17 14:00 18 10/09/17 14:00 18 10/09/17 13:30 86 18 120/56 88 Mechanical Ventilator 100 10/09/17 13:22 86 18 100 10/09/17 13:00 99.5 85 18 121/61 90 Mechanical Ventilator 100 10/09/17 13:00 18 10/09/17 13:00 18 10/09/17 12:30 86 18 120/61 90 Mechanical Ventilator 100 10/09/17 12:00 18 10/09/17 12:00 18 10/09/17 12:00 88 18 126/59 91 Mechanical Ventilator 100 10/09/17 12:00 100 10/09/17 11:59 18 10/09/17 11:59 18 10/09/17 11:57 89 10/09/17 11:30 93 18 123/64 89 Mechanical Ventilator 100 10/09/17 11:00 93 18 127/65 88 Mechanical Ventilator 100 10/09/17 11:00 18 10/09/17 11:00 18 10/09/17 10:55 99.9 10/09/17 10:38 98 18 100 10/09/17 10:30 96 18 128/66 86 Mechanical Ventilator 100 10/09/17 10:00 99 19 129/66 87 Mechanical Ventilator 100 10/09/17 10:00 20 10/09/17 10:00 20 Intake and Output 10/10/17 10/11/17 19:00 07:00 Intake Total 60 ml Output Total 100 ml Balance -40 ml Tube Feeding 60 ml Output Urine Total 100 ml # Voids 1 Laboratory Tests 10/09/17 11:30: Urine Color Pale yellow, Urine Appearance Clear, Urine pH 5, Urine Specific Lane 1.010, Urine Protein 1+H, Urine Glucose (UA) Negative, Urine Ketones Negative, Urine Occult Blood 2+H, Urine Nitrite Negative, Urine Bilirubin Negative, Urine Urobilinogen Normal, Urine Leukocyte Esterase 2+H, Urine RBC 2- 4H, Urine WBC 2-4, Urine Squamous Epithelial Cells Occasional, Urine Bacteria Occasional, Urine Eosinophils Negative, Urine Random Sodium 61, Urine Potassium Timed 28 10/09/17 20:50: Vancomycin Level Trough 22.6H 10/10/17 04:59: White Blood Count 10.6, Red Blood Count 6.66H, Hemoglobin 12.4L, Hematocrit 43.7 , Mean Corpuscular Volume 66L, Mean Corpuscular Hemoglobin 18.7L, Mean Corpuscular Hemoglobin Concent 28.4L, Red Cell Distribution Width 19.8H, Platelet Count 104L, Mean Platelet Volume 9.7, Neutrophils (%) (Auto) 83.3H, Lymphocytes (%) (Auto) 5.6L, Monocytes (%) (Auto) 8.8, Eosinophils (%) (Auto) 1.4, Basophils (%) (Auto) 1.0, Sodium Level 147H, Potassium Level 3.4L, Chloride Level 106, Carbon Dioxide Level 40H, Anion Gap -2L, Blood Urea Nitrogen 20H, Creatinine 1.8H, Estimat Glomerular Filtration Rate 42.0, Glucose Level 68L, Hemoglobin A1c 7.0H, Uric Acid 10.6H, Calcium Level 8.1L, Phosphorus Level 4.2, Magnesium Level 1.6L, Total Bilirubin 1.9H, Direct Bilirubin 0.5H, Gamma Glutamyl Transpeptidase 17, Aspartate Amino Transf (AST/SGOT) 27, Alanine Aminotransferase (ALT/SGPT) 13, Alkaline Phosphatase 44L, Total Creatine Kinase 54, Troponin I 0.000, C-Reactive Protein, Quantitative 23.6H, Pro-B-Type Natriuretic Peptide 1670H, Total Protein 6.7, Albumin 2.1L, Globulin 4.6, Albumin/Globulin Ratio 0.5L, Triglycerides Level 51, Cholesterol Level 55, LDL Cholesterol 38, HDL Cholesterol 16L, Cholesterol/HDL Ratio 3.4, Thyroid Stimulating Hormone (TSH) 1.189 10/10/17 05:00: Urine Random Sodium 80 10/10/17 09:28: Arterial Blood pH 7.365, Arterial Blood Partial Pressure CO2 75.2*H, Arterial Blood Partial Pressure O2 48.6*L, Arterial Blood HCO3 42.0H, Arterial Blood Oxygen Saturation 81.0L, Arterial Blood Base Excess 13.1, Naif Test Positive Height (Feet): 5 Height (Inches): 4.00 Weight (Pounds): 356 General Appearance: no apparent distress EENT: other - limited eval. as patient is intubated Cardiovascular: normal rate Respiratory/Chest: crackles/rales, rhonchi - bilaterally Abdomen: soft Extremities: other - limited eval. as patient is intubated Neurologic: other - limited eval. as patient is intubated and sedated Nery Combs MD Oct 10, 2017 09:46
--- NOTE | 2017-10-10 10:19 | Pulmonolgy Critical Care Note ---
Critical Care - Asmt/Plan Problems: (1) Respiratory distress (2) Pulmonary edema (3) Anasarca (4) scotal cellutis Respiratory: monitor respiratory rate, adjust FIO2, CXR, other - increase PEEP to 16 Cardiac: continue to monitor HR/BP Renal: F/U I&O Infectious Disease: check cultures, continue antibiotics Gastrointestinal: hold feedings Endocrine: monitor blood sugar, check TSH Hematologic: monitor H/H Neurologic: PRN Ativan Affect: PRN ativan Prophylaxis: Heparin Notes Reviewed: art consultant, ID Discussed with: nurses, consultants Critical Care - Objective Last 24 Hour Vital Signs Date Time Temp Pulse Resp B/P (MAP) Pulse Ox O2 Delivery O2 Flow Rate FiO2 10/10/17 10:06 18 10/10/17 10:00 102 20 109/52 89 Mechanical Ventilator 100 10/10/17 09:30 105 20 121/69 80 Mechanical Ventilator 100 10/10/17 09:24 107 19 100 10/10/17 09:00 106 19 121/69 80 Mechanical Ventilator 10/10/17 08:34 98.2 10/10/17 08:30 97 19 108/62 86 Mechanical Ventilator 100 10/10/17 08:04 17 10/10/17 08:00 98.2 99 19 108/60 86 Mechanical Ventilator 10/10/17 08:00 98 10/10/17 08:00 100 10/10/17 07:30 98 19 116/58 86 Mechanical Ventilator 100 10/10/17 07:29 100 18 100 10/10/17 07:00 98 19 113/60 89 Mechanical Ventilator 100 10/10/17 06:30 101 20 111/58 89 Mechanical Ventilator 100 10/10/17 06:00 102 20 117/67 86 Mechanical Ventilator 100 10/10/17 05:30 101 22 131/67 77 Mechanical Ventilator 100 10/10/17 05:29 102 20 100 10/10/17 05:00 97 19 115/69 89 Mechanical Ventilator 100 10/10/17 04:30 88 18 106/60 86 Mechanical Ventilator 100 10/10/17 04:00 100 10/10/17 04:00 98.9 90 18 108/63 86 Mechanical Ventilator 100 10/10/17 04:00 90 10/10/17 03:30 89 18 109/61 88 Mechanical Ventilator 100 10/10/17 03:28 90 18 100 10/10/17 03:00 90 18 106/57 89 Mechanical Ventilator 100 10/10/17 02:30 94 18 106/57 90 Mechanical Ventilator 100 10/10/17 02:00 97 19 109/56 90 Mechanical Ventilator 100 10/10/17 01:30 101 21 113/65 88 Mechanical Ventilator 100 10/10/17 01:22 97 18 100 10/10/17 01:00 18 10/10/17 01:00 88 18 113/65 87 Mechanical Ventilator 100 10/10/17 00:56 18 10/10/17 00:37 98.9 10/10/17 00:30 83 18 105/59 86 Mechanical Ventilator 100 10/10/17 00:04 18 10/10/17 00:00 85 10/10/17 00:00 100 10/10/17 00:00 99.2 85 18 103/57 87 Mechanical Ventilator 100 10/09/17 23:30 86 18 102/55 86 Mechanical Ventilator 100 10/09/17 23:12 88 18 100 10/09/17 23:00 89 18 104/57 86 Mechanical Ventilator 100 10/09/17 22:30 90 18 105/59 82 Mechanical Ventilator 100 10/09/17 22:00 91 18 109/64 87 Mechanical Ventilator 100 10/09/17 21:30 93 18 106/57 83 Mechanical Ventilator 100 10/09/17 21:20 89 18 100 10/09/17 21:00 91 18 106/51 87 Mechanical Ventilator 100 10/09/17 21:00 18 10/09/17 21:00 18 10/09/17 20:30 96 18 109/55 86 Mechanical Ventilator 100 10/09/17 20:00 96 19 112/62 84 Mechanical Ventilator 100 10/09/17 20:00 96 10/09/17 20:00 19 10/09/17 20:00 19 10/09/17 20:00 100 10/09/17 19:30 99.2 104 21 101/62 85 Mechanical Ventilator 100 10/09/17 19:22 91 18 100 10/09/17 19:00 91 18 106/62 84 Mechanical Ventilator 100 10/09/17 19:00 18 10/09/17 18:30 91 18 109/62 83 Mechanical Ventilator 100 10/09/17 18:00 93 18 103/57 84 Mechanical Ventilator 100 10/09/17 18:00 18 10/09/17 18:00 18 10/09/17 17:30 94 18 103/51 85 Mechanical Ventilator 100 10/09/17 17:06 97 18 100 10/09/17 17:00 18 10/09/17 17:00 18 10/09/17 17:00 95 18 104/58 88 Mechanical Ventilator 100 10/09/17 16:30 98 19 105/60 85 Mechanical Ventilator 100 10/09/17 16:15 101 21 109/61 82 Mechanical Ventilator 100 10/09/17 16:00 99.5 102 24 119/66 91 Mechanical Ventilator 100 10/09/17 16:00 24 10/09/17 16:00 24 10/09/17 16:00 100 10/09/17 15:45 96 21 126/76 85 Mechanical Ventilator 100 10/09/17 15:42 94 10/09/17 15:30 90 18 118/70 79 Mechanical Ventilator 100 10/09/17 15:20 89 18 100 10/09/17 15:00 82 18 86/53 86 Mechanical Ventilator 100 10/09/17 15:00 18 10/09/17 15:00 18 10/09/17 14:30 84 18 109/58 87 Mechanical Ventilator 100 10/09/17 14:00 86 18 118/58 87 Mechanical Ventilator 100 10/09/17 14:00 18 10/09/17 14:00 18 10/09/17 13:30 86 18 120/56 88 Mechanical Ventilator 100 10/09/17 13:22 86 18 100 10/09/17 13:00 99.5 85 18 121/61 90 Mechanical Ventilator 100 10/09/17 13:00 18 10/09/17 13:00 18 10/09/17 12:30 86 18 120/61 90 Mechanical Ventilator 100 10/09/17 12:00 18 10/09/17 12:00 18 10/09/17 12:00 88 18 126/59 91 Mechanical Ventilator 100 10/09/17 12:00 100 10/09/17 11:59 18 10/09/17 11:59 18 10/09/17 11:57 89 10/09/17 11:30 93 18 123/64 89 Mechanical Ventilator 100 10/09/17 11:00 93 18 127/65 88 Mechanical Ventilator 100 10/09/17 11:00 18 10/09/17 11:00 18 10/09/17 10:55 99.9 10/09/17 10:38 98 18 100 10/09/17 10:30 96 18 128/66 86 Mechanical Ventilator 100 Status: somnolent Condition: critical HEENT: atraumatic Lungs: clear Heart: HR/BP stable, HR/BP unstable Abdomen: non-tender, active bowel sounds Extremities: no C/C/E, edema Micro: Microbiology Date/Time Source Procedure Growth Status 10/08/17 21:00 Sputum Gram Stain - Final Resulted 10/08/17 21:00 Sputum Culture - Preliminary Gram Negative Bacillus 1 Usual Upper Respiratory Magi Resulted 10/08/17 21:00 Urine,Clean Catch Urine Culture - Final NO GROWTH AFTER 48 HOURS Complete Critical Care - Subjective ROS Limited/Unobtainable: Yes ICU Day: 3 Intubation Day: 3 Condition: critical EKG Rhythm: Sinus Rhythm FI02: 100 Vent Support Breath Rate: 18 Vent Support Mode: AC Vent Tidal Volume: 550 Sputum Amount: Small PEEP: 14.0 PIP: 42 Tube Feeding Amount: 30 I&O: Intake and Output 10/10/17 10/11/17 19:00 07:00 Intake Total 90 ml Output Total 600 ml Balance -510 ml Tube Feeding 90 ml Output Urine Total 600 ml # Voids 1 CXR: no chage ET-Tube: 7.5 ET Position: 25 Labs: Laboratory Tests Test 10/09/17 11:30 10/09/17 20:50 10/10/17 04:59 10/10/17 05:00 Urine Color Pale yellow Urine Appearance Clear Urine pH 5 (4.5-8.0) Urine Specific [place] 1.010 (1.005-1.035) Urine Protein 1+ (NEGATIVE) H Urine Glucose (UA) Negative (NEGATIVE) Urine Ketones Negative (NEGATIVE) Urine Occult Blood 2+ (NEGATIVE) H Urine Nitrite Negative (NEGATIVE) Urine Bilirubin Negative (NEGATIVE) Urine Urobilinogen Normal MG/DL (0.0-1.0) Urine Leukocyte Esterase 2+ (NEGATIVE) H Urine RBC 2-4 /HPF (0 - 0) H Urine WBC 2-4 /HPF (0 - 0) Urine Squamous Epithelial Cells Occasional /LPF Urine Bacteria Occasional /HPF (NONE) Urine Eosinophils Negative Urine Random Sodium 61 MEQ/L (20-110) 80 MEQ/L (20-110) Urine Potassium Timed 28 mmol/L (12-62) Vancomycin Level Trough 22.6 ug/mL (5.0-12.0) H White Blood Count 10.6 K/UL (4.8-10.8) Red Blood Count 6.66 M/UL (4.70-6.10) H Hemoglobin 12.4 G/DL (14.2-18.0) L Hematocrit 43.7 % (42.0-52.0) Mean Corpuscular Volume 66 FL (80-99) L Mean Corpuscular Hemoglobin 18.7 PG (27.0-31.0) L Mean Corpuscular Hemoglobin Concent 28.4 G/DL (32.0-36.0) L Red Cell Distribution Width 19.8 % (11.6-14.8) H Platelet Count 104 K/UL (150-450) L Mean Platelet Volume 9.7 FL (6.5-10.1) Neutrophils (%) (Auto) 83.3 % (45.0-75.0) H Lymphocytes (%) (Auto) 5.6 % (20.0-45.0) L Monocytes (%) (Auto) 8.8 % (1.0-10.0) Eosinophils (%) (Auto) 1.4 % (0.0-3.0) Basophils (%) (Auto) 1.0 % (0.0-2.0) Sodium Level 147 MMOL/L (136-145) H Potassium Level 3.4 MMOL/L (3.5-5.1) L Chloride Level 106 MMOL/L (98-107) Carbon Dioxide Level 40 MMOL/L (21-32) H Anion Gap -2 mmol/L (5-15) L Blood Urea Nitrogen 20 mg/dL (7-18) H Creatinine 1.8 MG/DL (0.55-1.30) H Estimat Glomerular Filtration Rate 42.0 mL/min (>60) Glucose Level 68 MG/DL (74-106) L Hemoglobin A1c 7.0 % (4.3-6.0) H Uric Acid 10.6 MG/DL (2.6-7.2) H Calcium Level 8.1 MG/DL (8.5-10.1) L Phosphorus Level 4.2 MG/DL (2.5-4.9) Magnesium Level 1.6 MG/DL (1.8-2.4) L Total Bilirubin 1.9 MG/DL (0.2-1.0) H Direct Bilirubin 0.5 MG/DL (0.0-0.3) H Gamma Glutamyl Transpeptidase 17 U/L (5-85) Aspartate Amino Transf (AST/SGOT) 27 U/L (15-37) Alanine Aminotransferase (ALT/SGPT) 13 U/L (12-78) Alkaline Phosphatase 44 U/L (46-116) L Total Creatine Kinase 54 U/L (26-308) Troponin I 0.000 ng/mL (0.000-0.056) C-Reactive Protein, Quantitative 23.6 mg/dL (0.00-0.90) H Pro-B-Type Natriuretic Peptide 1670 pg/mL (0-125) H Total Protein 6.7 G/DL (6.4-8.2) Albumin 2.1 G/DL (3.4-5.0) L Globulin 4.6 g/dL Albumin/Globulin Ratio 0.5 (1.0-2.7) L Triglycerides Level 51 MG/DL (30-150) Cholesterol Level 55 MG/DL (< 200) LDL Cholesterol 38 mg/dL (<100) HDL Cholesterol 16 MG/DL (40-60) L Cholesterol/HDL Ratio 3.4 (3.3-4.4) Thyroid Stimulating Hormone (TSH) 1.189 uiU/mL (0.358-3.740) Test 10/10/17 09:28 Arterial Blood pH 7.365 (7.350-7.450) Arterial Blood Partial Pressure CO2 75.2 mmHg (35.0-45.0) *H Arterial Blood Partial Pressure O2 48.6 mmHg (75.0-100.0) Arterial Blood HCO3 42.0 mmol/L (22.0-26.0) H Arterial Blood Oxygen Saturation 81.0 % (92.0-98.0) L Arterial Blood Base Excess 13.1 Naif Test Positive DWAYNE GROSS Oct 10, 2017 10:19
--- NOTE | 2017-10-10 10:58 | Infectious Diseases Prog Note ---
Assessment/Plan Assessment/Plan ASSESSMENT: The patient is a 42-year-old male with, Possible aspiration pneumonia versus community-acquired pneumonia. Scx : GNR 10/09 Xray worsening left basilar infiltrates versus edema Probable scrotal cellulitis versus discoloration of genitalia due to edema. Ventilator-dependent respiratory failure. Fever x1. Rule out bacteremia. CORA PICC 10/09 VDRF Congestive heart failure. PLAN: cont pt on vancomycin and Zosyn and Doxy d# 3 Monitor CBC. Monitor BMP. Monitor cultures (blood, urine, and sputum). Continue vent support. Monitor chest x-ray Subjective Allergies: Coded Allergies: No Known Allergies (Unverified , 10/06/17) Subjective on Vent 100 FIO2 Objective Vital Signs Last 24 Hour Vital Signs Date Time Temp Pulse Resp B/P (MAP) Pulse Ox O2 Delivery O2 Flow Rate FiO2 10/10/17 10:36 98.2 10/10/17 10:30 99 20 108/53 89 Mechanical Ventilator 100 10/10/17 10:06 18 10/10/17 10:00 102 20 109/52 89 Mechanical Ventilator 100 10/10/17 10:00 16 10/10/17 10:00 17 10/10/17 09:30 105 20 121/69 80 Mechanical Ventilator 100 10/10/17 09:24 107 19 100 10/10/17 09:00 106 19 121/69 80 Mechanical Ventilator 100 10/10/17 09:00 17 10/10/17 09:00 19 10/10/17 08:34 98.2 10/10/17 08:30 97 19 108/62 86 Mechanical Ventilator 100 10/10/17 08:04 17 10/10/17 08:04 21 10/10/17 08:00 98.2 99 19 108/60 86 Mechanical Ventilator 100 10/10/17 08:00 98 10/10/17 08:00 100 10/10/17 07:30 98 19 116/58 86 Mechanical Ventilator 100 10/10/17 07:29 100 18 100 10/10/17 07:00 98 19 113/60 89 Mechanical Ventilator 100 10/10/17 06:30 101 20 111/58 89 Mechanical Ventilator 100 10/10/17 06:00 102 20 117/67 86 Mechanical Ventilator 100 10/10/17 05:30 101 22 131/67 77 Mechanical Ventilator 100 10/10/17 05:29 102 20 100 10/10/17 05:00 97 19 115/69 89 Mechanical Ventilator 100 10/10/17 04:30 88 18 106/60 86 Mechanical Ventilator 100 10/10/17 04:00 100 10/10/17 04:00 98.9 90 18 108/63 86 Mechanical Ventilator 100 10/10/17 04:00 90 10/10/17 03:30 89 18 109/61 88 Mechanical Ventilator 100 10/10/17 03:28 90 18 100 10/10/17 03:00 90 18 106/57 89 Mechanical Ventilator 100 10/10/17 02:30 94 18 106/57 90 Mechanical Ventilator 100 10/10/17 02:00 97 19 109/56 90 Mechanical Ventilator 100 10/10/17 01:30 101 21 113/65 88 Mechanical Ventilator 100 10/10/17 01:22 97 18 100 10/10/17 01:00 18 10/10/17 01:00 88 18 113/65 87 Mechanical Ventilator 100 10/10/17 00:56 18 10/10/17 00:30 83 18 105/59 86 Mechanical Ventilator 100 10/10/17 00:04 18 10/10/17 00:00 85 10/10/17 00:00 100 10/10/17 00:00 99.2 85 18 103/57 87 Mechanical Ventilator 100 10/09/17 23:30 86 18 102/55 86 Mechanical Ventilator 100 10/09/17 23:12 88 18 100 10/09/17 23:00 89 18 104/57 86 Mechanical Ventilator 100 10/09/17 22:30 90 18 105/59 82 Mechanical Ventilator 100 10/09/17 22:00 91 18 109/64 87 Mechanical Ventilator 100 10/09/17 21:30 93 18 106/57 83 Mechanical Ventilator 100 10/09/17 21:20 89 18 100 10/09/17 21:00 91 18 106/51 87 Mechanical Ventilator 100 10/09/17 21:00 18 10/09/17 21:00 18 10/09/17 20:30 96 18 109/55 86 Mechanical Ventilator 100 10/09/17 20:00 96 19 112/62 84 Mechanical Ventilator 100 10/09/17 20:00 96 10/09/17 20:00 19 10/09/17 20:00 19 10/09/17 20:00 100 10/09/17 19:30 99.2 104 21 101/62 85 Mechanical Ventilator 100 10/09/17 19:22 91 18 100 10/09/17 19:00 91 18 106/62 84 Mechanical Ventilator 100 10/09/17 19:00 18 10/09/17 18:30 91 18 109/62 83 Mechanical Ventilator 100 10/09/17 18:00 93 18 103/57 84 Mechanical Ventilator 100 10/09/17 18:00 18 10/09/17 18:00 18 10/09/17 17:30 94 18 103/51 85 Mechanical Ventilator 100 10/09/17 17:06 97 18 100 10/09/17 17:00 18 10/09/17 17:00 18 10/09/17 17:00 95 18 104/58 88 Mechanical Ventilator 100 10/09/17 16:30 98 19 105/60 85 Mechanical Ventilator 100 10/09/17 16:15 101 21 109/61 82 Mechanical Ventilator 100 10/09/17 16:00 99.5 102 24 119/66 91 Mechanical Ventilator 100 10/09/17 16:00 24 10/09/17 16:00 24 10/09/17 16:00 100 10/09/17 15:45 96 21 126/76 85 Mechanical Ventilator 100 10/09/17 15:42 94 10/09/17 15:30 90 18 118/70 79 Mechanical Ventilator 100 10/09/17 15:20 89 18 100 10/09/17 15:00 82 18 86/53 86 Mechanical Ventilator 100 10/09/17 15:00 18 10/09/17 15:00 18 10/09/17 14:30 84 18 109/58 87 Mechanical Ventilator 100 10/09/17 14:00 86 18 118/58 87 Mechanical Ventilator 100 10/09/17 14:00 18 10/09/17 14:00 18 10/09/17 13:30 86 18 120/56 88 Mechanical Ventilator 100 10/09/17 13:22 86 18 100 10/09/17 13:00 99.5 85 18 121/61 90 Mechanical Ventilator 100 10/09/17 13:00 18 10/09/17 13:00 18 10/09/17 12:30 86 18 120/61 90 Mechanical Ventilator 100 10/09/17 12:00 18 10/09/17 12:00 18 10/09/17 12:00 88 18 126/59 91 Mechanical Ventilator 100 10/09/17 12:00 100 10/09/17 11:59 18 10/09/17 11:59 18 10/09/17 11:57 89 10/09/17 11:30 93 18 123/64 89 Mechanical Ventilator 100 10/09/17 11:00 93 18 127/65 88 Mechanical Ventilator 100 10/09/17 11:00 18 10/09/17 11:00 18 Height (Feet): 5 Height (Inches): 4.00 Weight (Pounds): 356 HEENT: mucous membranes moist Respiratory/Chest: no respiratory distress Cardiovascular: regularly irregular Abdomen: no organomegaly Microbiology Date/Time Source Procedure Growth Status 10/08/17 21:00 Sputum Gram Stain - Final Resulted 10/08/17 21:00 Sputum Culture - Preliminary Gram Negative Bacillus 1 Usual Upper Respiratory Magi Resulted 10/08/17 21:00 Urine,Clean Catch Urine Culture - Final NO GROWTH AFTER 48 HOURS Complete Laboratory Tests Test 10/09/17 11:30 10/09/17 20:50 10/10/17 04:59 10/10/17 05:00 Urine Color Pale yellow Urine Appearance Clear Urine pH 5 (4.5-8.0) Urine Specific [place] 1.010 (1.005-1.035) Urine Protein 1+ (NEGATIVE) H Urine Glucose (UA) Negative (NEGATIVE) Urine Ketones Negative (NEGATIVE) Urine Occult Blood 2+ (NEGATIVE) H Urine Nitrite Negative (NEGATIVE) Urine Bilirubin Negative (NEGATIVE) Urine Urobilinogen Normal MG/DL (0.0-1.0) Urine Leukocyte Esterase 2+ (NEGATIVE) H Urine RBC 2-4 /HPF (0 - 0) H Urine WBC 2-4 /HPF (0 - 0) Urine Squamous Epithelial Cells Occasional /LPF Urine Bacteria Occasional /HPF (NONE) Urine Eosinophils Negative Urine Random Sodium 61 MEQ/L (20-110) 80 MEQ/L (20-110) Urine Potassium Timed 28 mmol/L (12-62) Vancomycin Level Trough 22.6 ug/mL (5.0-12.0) H White Blood Count 10.6 K/UL (4.8-10.8) Red Blood Count 6.66 M/UL (4.70-6.10) H Hemoglobin 12.4 G/DL (14.2-18.0) L Hematocrit 43.7 % (42.0-52.0) Mean Corpuscular Volume 66 FL (80-99) L Mean Corpuscular Hemoglobin 18.7 PG (27.0-31.0) L Mean Corpuscular Hemoglobin Concent 28.4 G/DL (32.0-36.0) L Red Cell Distribution Width 19.8 % (11.6-14.8) H Platelet Count 104 K/UL (150-450) L Mean Platelet Volume 9.7 FL (6.5-10.1) Neutrophils (%) (Auto) 83.3 % (45.0-75.0) H Lymphocytes (%) (Auto) 5.6 % (20.0-45.0) L Monocytes (%) (Auto) 8.8 % (1.0-10.0) Eosinophils (%) (Auto) 1.4 % (0.0-3.0) Basophils (%) (Auto) 1.0 % (0.0-2.0) Sodium Level 147 MMOL/L (136-145) H Potassium Level 3.4 MMOL/L (3.5-5.1) L Chloride Level 106 MMOL/L (98-107) Carbon Dioxide Level 40 MMOL/L (21-32) H Anion Gap -2 mmol/L (5-15) L Blood Urea Nitrogen 20 mg/dL (7-18) H Creatinine 1.8 MG/DL (0.55-1.30) H Estimat Glomerular Filtration Rate 42.0 mL/min (>60) Glucose Level 68 MG/DL (74-106) L Hemoglobin A1c 7.0 % (4.3-6.0) H Uric Acid 10.6 MG/DL (2.6-7.2) H Calcium Level 8.1 MG/DL (8.5-10.1) L Phosphorus Level 4.2 MG/DL (2.5-4.9) Magnesium Level 1.6 MG/DL (1.8-2.4) L Total Bilirubin 1.9 MG/DL (0.2-1.0) H Direct Bilirubin 0.5 MG/DL (0.0-0.3) H Gamma Glutamyl Transpeptidase 17 U/L (5-85) Aspartate Amino Transf (AST/SGOT) 27 U/L (15-37) Alanine Aminotransferase (ALT/SGPT) 13 U/L (12-78) Alkaline Phosphatase 44 U/L (46-116) L Total Creatine Kinase 54 U/L (26-308) Troponin I 0.000 ng/mL (0.000-0.056) C-Reactive Protein, Quantitative 23.6 mg/dL (0.00-0.90) H Pro-B-Type Natriuretic Peptide 1670 pg/mL (0-125) H Total Protein 6.7 G/DL (6.4-8.2) Albumin 2.1 G/DL (3.4-5.0) L Globulin 4.6 g/dL Albumin/Globulin Ratio 0.5 (1.0-2.7) L Triglycerides Level 51 MG/DL (30-150) Cholesterol Level 55 MG/DL (< 200) LDL Cholesterol 38 mg/dL (<100) HDL Cholesterol 16 MG/DL (40-60) L Cholesterol/HDL Ratio 3.4 (3.3-4.4) Thyroid Stimulating Hormone (TSH) 1.189 uiU/mL (0.358-3.740) Test 10/10/17 09:28 Arterial Blood pH 7.365 (7.350-7.450) Arterial Blood Partial Pressure CO2 75.2 mmHg (35.0-45.0) *H Arterial Blood Partial Pressure O2 48.6 mmHg (75.0-100.0) Arterial Blood HCO3 42.0 mmol/L (22.0-26.0) H Arterial Blood Oxygen Saturation 81.0 % (92.0-98.0) L Arterial Blood Base Excess 13.1 Naif Test Positive Current Medications Medications (Trade) Dose Ordered Sig/Prince Route PRN Reason Start Time Stop Time Status Last Admin Dose Admin Acetaminophen (Tylenol) 650 mg EVERY 4 HOURS PRN NG Mild Pain/Temp > 100.5 10/09/17 10:15 11/08/17 10:14 Chlorhexidine Gluconate (Sol-Hex 2%) 1 applic DAILY@1999 TOPIC 10/09/17 20:00 11/08/17 19:59 10/09/17 20:24 Doxycycline Monohydrate (Vibramycin) 100 mg Q12HR@0600,1800 GT 10/08/17 16:30 10/15/17 16:29 10/10/17 05:57 Fentanyl Citrate 1000 mcg/Sodium Chloride 100 ml @ 0 mls/hr Q24H IV 10/07/17 19:00 10/14/17 18:59 10/10/17 10:06 Haloperidol Lactate 5 mg/ Dextrose 56 ml @ 224 mls/hr Q1H PRN IVPB BREAKTHROUGH AGITATION 10/08/17 17:00 11/07/17 16:59 10/09/17 07:12 Heparin Sodium (Porcine) (Heparin 5000 units/ml) 5,000 units DAILY SUBQ 10/08/17 11:00 11/07/17 10:59 10/08/17 11:13 Lorazepam (Ativan 2mg/ml 1ml) 2 mg Q4H PRN IV For Anxiety 10/07/17 11:00 10/14/17 10:59 10/09/17 00:26 Midazolam HCl 100 ml @ 0 mls/hr Q24H IVPB 10/07/17 18:30 10/14/17 18:29 10/10/17 08:04 Morphine Sulfate (Morphine Sulfate) 4 mg Q4H PRN IVP For Pain 10/07/17 11:00 10/14/17 10:59 Pantoprazole (Protonix) 40 mg DAILY IV 10/07/17 11:00 11/06/17 10:59 10/10/17 08:06 Piperacillin Sod/ Tazobactam Sod 3.375 gm/Dextrose 55 ml @ 13.75 mls/ hr Q8H IVPB 10/07/17 16:00 10/14/17 15:59 10/10/17 08:04 Sodium Chloride 1,000 ml @ 50 mls/hr Q20H IV 10/09/17 14:30 11/08/17 14:29 10/10/17 10:36 Vancomycin HCl (Vanco rx to dose) 1 ea DAILY PRN MISC PER RX PROTOCOL 10/07/17 11:00 11/06/17 10:59 Vancomycin HCl/ Dextrose 250 ml @ 125 mls/hr Q24H IVPB 10/10/17 06:00 10/15/17 05:59 10/10/17 05:57 CATALINA PARRA M.D. Oct 10, 2017 10:58
--- NOTE | 2017-10-10 12:10 | Nephrology Progress Note ---
Assessment/Plan Problem List: (1) Acute respiratory failure (2) Acute renal failure Assessment acute renal failure- rising Cr Acute Respiratory distress , ? aspiration pneumonia Acute Pulmonary edema Anasarca scotal cellutis Morbid obesity. Thrombocytopenia. Abnormal blood sugar. Anemia. Plan Plan: K and Mag supplement Keep BP in check pulm support avoid nephrotoxics monitor renal parameters per consultants per orders Left ventricular ejection fraction estimated to be grossly normal. Mild left ventricular hypertrophy. Subjective ROS Limited/Unobtainable: Yes Objective Objective Last 24 Hour Vital Signs Date Time Temp Pulse Resp B/P (MAP) Pulse Ox O2 Delivery O2 Flow Rate FiO2 10/10/17 11:30 95 19 108/55 91 Mechanical Ventilator 100 10/10/17 11:15 95 18 100 10/10/17 11:00 98 20 109/54 89 Mechanical Ventilator 100 10/10/17 10:36 98.2 10/10/17 10:30 99 20 108/53 89 Mechanical Ventilator 100 10/10/17 10:06 18 10/10/17 10:00 102 20 109/52 89 Mechanical Ventilator 100 10/10/17 10:00 16 10/10/17 10:00 17 10/10/17 09:30 105 20 121/69 80 Mechanical Ventilator 100 10/10/17 09:24 107 19 100 10/10/17 09:00 106 19 121/69 80 Mechanical Ventilator 100 10/10/17 09:00 17 10/10/17 09:00 19 10/10/17 08:34 98.2 10/10/17 08:30 97 19 108/62 86 Mechanical Ventilator 100 10/10/17 08:04 17 10/10/17 08:04 21 10/10/17 08:00 98.2 99 19 108/60 86 Mechanical Ventilator 100 10/10/17 08:00 98 10/10/17 08:00 100 10/10/17 07:30 98 19 116/58 86 Mechanical Ventilator 100 10/10/17 07:29 100 18 100 10/10/17 07:00 98 19 113/60 89 Mechanical Ventilator 100 10/10/17 06:30 101 20 111/58 89 Mechanical Ventilator 100 10/10/17 06:00 102 20 117/67 86 Mechanical Ventilator 100 10/10/17 05:30 101 22 131/67 77 Mechanical Ventilator 100 10/10/17 05:29 102 20 100 10/10/17 05:00 97 19 115/69 89 Mechanical Ventilator 100 10/10/17 04:30 88 18 106/60 86 Mechanical Ventilator 100 10/10/17 04:00 100 10/10/17 04:00 98.9 90 18 108/63 86 Mechanical Ventilator 100 10/10/17 04:00 90 10/10/17 03:30 89 18 109/61 88 Mechanical Ventilator 100 10/10/17 03:28 90 18 100 10/10/17 03:00 90 18 106/57 89 Mechanical Ventilator 100 10/10/17 02:30 94 18 106/57 90 Mechanical Ventilator 100 10/10/17 02:00 97 19 109/56 90 Mechanical Ventilator 100 10/10/17 01:30 101 21 113/65 88 Mechanical Ventilator 100 10/10/17 01:22 97 18 100 10/10/17 01:00 18 10/10/17 01:00 88 18 113/65 87 Mechanical Ventilator 100 10/10/17 00:56 18 10/10/17 00:30 83 18 105/59 86 Mechanical Ventilator 100 10/10/17 00:04 18 10/10/17 00:00 85 10/10/17 00:00 100 10/10/17 00:00 99.2 85 18 103/57 87 Mechanical Ventilator 100 10/09/17 23:30 86 18 102/55 86 Mechanical Ventilator 100 10/09/17 23:12 88 18 100 10/09/17 23:00 89 18 104/57 86 Mechanical Ventilator 100 10/09/17 22:30 90 18 105/59 82 Mechanical Ventilator 100 10/09/17 22:00 91 18 109/64 87 Mechanical Ventilator 100 10/09/17 21:30 93 18 106/57 83 Mechanical Ventilator 100 10/09/17 21:20 89 18 100 10/09/17 21:00 91 18 106/51 87 Mechanical Ventilator 100 10/09/17 21:00 18 10/09/17 21:00 18 10/09/17 20:30 96 18 109/55 86 Mechanical Ventilator 100 10/09/17 20:00 96 19 112/62 84 Mechanical Ventilator 100 10/09/17 20:00 96 10/09/17 20:00 19 10/09/17 20:00 19 10/09/17 20:00 100 10/09/17 19:30 99.2 104 21 101/62 85 Mechanical Ventilator 100 10/09/17 19:22 91 18 100 10/09/17 19:00 91 18 106/62 84 Mechanical Ventilator 100 10/09/17 19:00 18 10/09/17 18:30 91 18 109/62 83 Mechanical Ventilator 100 10/09/17 18:00 93 18 103/57 84 Mechanical Ventilator 100 10/09/17 18:00 18 10/09/17 18:00 18 10/09/17 17:30 94 18 103/51 85 Mechanical Ventilator 100 10/09/17 17:06 97 18 100 10/09/17 17:00 18 10/09/17 17:00 18 10/09/17 17:00 95 18 104/58 88 Mechanical Ventilator 100 10/09/17 16:30 98 19 105/60 85 Mechanical Ventilator 100 10/09/17 16:15 101 21 109/61 82 Mechanical Ventilator 100 10/09/17 16:00 99.5 102 24 119/66 91 Mechanical Ventilator 100 10/09/17 16:00 24 10/09/17 16:00 24 10/09/17 16:00 100 10/09/17 15:45 96 21 126/76 85 Mechanical Ventilator 100 10/09/17 15:42 94 10/09/17 15:30 90 18 118/70 79 Mechanical Ventilator 100 10/09/17 15:20 89 18 100 10/09/17 15:00 82 18 86/53 86 Mechanical Ventilator 100 10/09/17 15:00 18 10/09/17 15:00 18 10/09/17 14:30 84 18 109/58 87 Mechanical Ventilator 100 10/09/17 14:00 86 18 118/58 87 Mechanical Ventilator 100 10/09/17 14:00 18 10/09/17 14:00 18 10/09/17 13:30 86 18 120/56 88 Mechanical Ventilator 100 10/09/17 13:22 86 18 100 10/09/17 13:00 99.5 85 18 121/61 90 Mechanical Ventilator 100 10/09/17 13:00 18 10/09/17 13:00 18 10/09/17 12:30 86 18 120/61 90 Mechanical Ventilator 100 Intake and Output 10/10/17 10/11/17 19:00 07:00 Intake Total 373.50 ml Output Total 600 ml Balance -226.50 ml IV Total 253.50 ml Tube Feeding 120 ml Output Urine Total 600 ml # Voids 1 Laboratory Tests 10/09/17 20:50: Vancomycin Level Trough 22.6H 10/10/17 04:59: White Blood Count 10.6, Red Blood Count 6.66H, Hemoglobin 12.4L, Hematocrit 43.7 , Mean Corpuscular Volume 66L, Mean Corpuscular Hemoglobin 18.7L, Mean Corpuscular Hemoglobin Concent 28.4L, Red Cell Distribution Width 19.8H, Platelet Count 104L, Mean Platelet Volume 9.7, Neutrophils (%) (Auto) 83.3H, Lymphocytes (%) (Auto) 5.6L, Monocytes (%) (Auto) 8.8, Eosinophils (%) (Auto) 1.4, Basophils (%) (Auto) 1.0, Sodium Level 147H, Potassium Level 3.4L, Chloride Level 106, Carbon Dioxide Level 40H, Anion Gap -2L, Blood Urea Nitrogen 20H, Creatinine 1.8H, Estimat Glomerular Filtration Rate 42.0, Glucose Level 68L, Hemoglobin A1c 7.0H, Uric Acid 10.6H, Calcium Level 8.1L, Phosphorus Level 4.2, Magnesium Level 1.6L, Total Bilirubin 1.9H, Direct Bilirubin 0.5H, Gamma Glutamyl Transpeptidase 17, Aspartate Amino Transf (AST/SGOT) 27, Alanine Aminotransferase (ALT/SGPT) 13, Alkaline Phosphatase 44L, Total Creatine Kinase 54, Troponin I 0.000, C-Reactive Protein, Quantitative 23.6H, Pro-B-Type Natriuretic Peptide 1670H, Total Protein 6.7, Albumin 2.1L, Globulin 4.6, Albumin/Globulin Ratio 0.5L, Triglycerides Level 51, Cholesterol Level 55, LDL Cholesterol 38, HDL Cholesterol 16L, Cholesterol/HDL Ratio 3.4, Thyroid Stimulating Hormone (TSH) 1.189 10/10/17 05:00: Urine Random Sodium 80 10/10/17 09:28: Arterial Blood pH 7.365, Arterial Blood Partial Pressure CO2 75.2*H, Arterial Blood Partial Pressure O2 48.6*L, Arterial Blood HCO3 42.0H, Arterial Blood Oxygen Saturation 81.0L, Arterial Blood Base Excess 13.1, Naif Test Positive Height (Feet): 5 Height (Inches): 4.00 Weight (Pounds): 356 General Appearance: no apparent distress, other - sadated EENT: other - on vent Respiratory/Chest: decreased breath sounds Abdomen: soft, other - obese Extremities: other - edematous Objective no other change JAY YANCEY Oct 10, 2017 12:10
--- NOTE | 2017-10-10 12:14 | Diagnostic Imaging Report ---
Indication: Reason For Exam: [id number] Technique: One view of the chest Comparison: 10/09/2017 Findings: Single satisfactory positions of endotracheal tube, nasogastric tube, PICC. Extensive interstitial congestion and diffuse hazy parenchymal opacity demonstrated. Dense retrocardiac consolidation is unchanged. Bilateral pleural effusions are unchanged. The heart remains enlarged. Impression: Unchanged, over one day, findings as above.
[2017-10-10] MEDS ORDERED: Potassium Chloride 40 MEQ in Sodium Chloride 500ML 550 ML IVPB ONE (12:15)
--- NOTE | 2017-10-10 13:10 | Wound Nurse Progress Note ---
Wound RN Progress Note Wound Consult Patient diagnosed with Psoriasis. please follow up with MD for further orders. WENDY CHAIDEZ Oct 10, 2017 13:10
[2017-10-10] MEDS: Dyna-Hex 2% Top Sol 2oz TOPIC SCH (20:20)
--- NOTE | 2017-10-10 20:46 | Consultation ---
DATE OF CONSULTATION: 10/09/2017 REASON FOR CONSULTATION: Urinary retention. HISTORY OF PRESENT ILLNESS: The patient is in the intensive care unit intubated, so I was not able to obtain any past medical history or review of symptoms, however, I was asked to put a Carrington catheter since he was admitted with acute hypoxemic respiratory failure and was worked for pulmonary infiltrate or other potential causes of this condition. He has morbid obesity and cellulitis. He has also history of obstructive uropathy and type 2 diabetes. PHYSICAL EXAMINATION: On exam, the patient is severely obese. Scrotum was severely swollen and penis is difficult to retract. Exam of the prostate was difficult due to the size and position of the patient. LABORATORY DATA: His laboratories were reviewed. ASSESSMENT AND PLAN: With great difficulty, his penis was retracted outside the swollen scrotum and 16-Kinyarwanda Carrington catheter was inserted. Clear yellow urine was expressed. Balloon was filled with 10 mL of water and left indwelling. I recommended to give him prophylactic antibiotics, which he is already getting and keep the Carrington catheter as long as the scrotal edema dissipates. I use the scrotal elevation and diuresis to deal with scrotal edema. I will follow this patient with you. Oleg Ovalles M.D. DR: MI JOB#: [id number] CC:
[2017-10-11] VITALS (40 sets, daily range): BP systolic 86–148; BP diastolic 42–73
[2017-10-11] MEDS: Piperacillin/Tazobactam 3.375 GM in D5W 55 ML IVPB SCH ×3 (00:28→15:38)
[2017-10-11 05:30] LABS: HEMATOCRIT 43.1 % (42.0-52.0); HEMOGLOBIN 12.1 G/DL (14.2-18.0); MEAN CORPUSCULAR VOLUME 66 FL (80-99); PLATELET COUNT 78 K/UL (150-450); RED BLOOD COUNT 6.52 M/UL (4.70-6.10); RED CELL DISTRIBUTION WIDTH 20.6 % (11.6-14.8); WHITE BLOOD COUNT 11.7 K/UL (4.8-10.8)
[2017-10-11] MEDS: Vancomycin 1.5 GM/D5W 250ML IVPB SCH (05:40)
[2017-10-11 06:04] LABS: CREATINE KINASE 44 U/L (26-308); GAMMA GLUTAMYL TRANSPEPTIDASE 20 U/L (5-85)
[2017-10-11 06:22] LABS: ALANINE AMINOTRANSFERASE 11 U/L (12-78); ALBUMIN 1.9 G/DL (3.4-5.0); ALBUMIN/GLOBULIN RATIO 0.4 (1.0-2.7); ALKALINE PHOSPHATASE 45 U/L (46-116); ANION GAP 1 mmol/L (5-15); ASPARTATE AMINO TRANSFERASE 28 U/L (15-37); BILIRUBIN,TOTAL 1.5 MG/DL (0.2-1.0); BLOOD UREA NITROGEN 25 mg/dL (7-18); CALCIUM 8.3 MG/DL (8.5-10.1); CARBON DIOXIDE 37 MMOL/L (21-32); CHLORIDE 108 MMOL/L (98-107); CREATININE 2.5 MG/DL (0.55-1.30); PHOSPHORUS 2.5 MG/DL (2.5-4.9); POTASSIUM 3.7 MMOL/L (3.5-5.1); SODIUM 146 MMOL/L (136-145)
[2017-10-11 06:28] LABS: BILIRUBIN,DIRECT 0.4 MG/DL (0.0-0.3)
[2017-10-11] MEDS: Heparin 5000 units/ml inj SUBQ SCH (07:05)
[2017-10-11] MEDS: Acetaminophen 650mg/20.3ml NG PRN ×3 (07:55→18:12)
[2017-10-11] MEDS: Pantoprazole Inj IV SCH (08:34)
--- NOTE | 2017-10-11 10:08 | General Progress Note ---
Assessment/Plan Status: unchanged Assessment/Plan 1. VDRF 2. Acute hypoxemic respiratory failure. Differential diagnosis pulmonary edema, PNA 2. Sepsis: Aspiration PNA, edema 2. Cellulitis of the scrotal area. 3. Morbid obesity. 5. ARF 6. Obstructive uropathy 4. Thrombocytopenia. 5. DM-2 6. Anemia. 7. Gastrointestinal and deep vein thrombosis prophylaxes. 8. Psoriasis PLAN OF CARE: NOtes from Infectious Diseases Dr. Pineda, Nephrology, Dr Urrutia, Pulmonary Dr. Casas are reviewd status post insertion of urinary kellogg. Persistent Hypoxemia current pulmonary management Guarded Prognosis Subjective ROS Limited/Unobtainable: Yes Allergies: Coded Allergies: No Known Allergies (Unverified , 10/06/17) Objective Last 24 Hour Vital Signs Date Time Temp Pulse Resp B/P (MAP) Pulse Ox O2 Delivery O2 Flow Rate FiO2 10/11/17 10:00 92 24 112/52 92 Mechanical Ventilator 100 10/11/17 09:43 97 27 100 10/11/17 09:30 99 23 116/55 95 Mechanical Ventilator 100 10/11/17 09:00 96 23 115/51 95 Mechanical Ventilator 100 10/11/17 08:30 101 24 126/59 94 Mechanical Ventilator 100 10/11/17 08:25 101.0 10/11/17 08:00 101.9 102 21 125/62 95 Mechanical Ventilator 100 10/11/17 08:00 102 10/11/17 08:00 21 10/11/17 08:00 100 10/11/17 07:37 102 22 100 10/11/17 07:30 106 20 122/53 92 Mechanical Ventilator 100 10/11/17 07:00 101 21 123/62 97 Mechanical Ventilator 100 10/11/17 06:30 102 22 123/61 97 Mechanical Ventilator 100 10/11/17 06:00 107 22 119/53 97 Mechanical Ventilator 100 10/11/17 05:30 108 23 123/51 95 Mechanical Ventilator 100 10/11/17 05:00 112 22 88/73 92 Mechanical Ventilator 100 10/11/17 04:50 102 21 100 10/11/17 04:30 103 22 120/66 94 Mechanical Ventilator 100 10/11/17 04:00 100 10/11/17 04:00 103 10/11/17 04:00 98.3 103 22 126/53 94 Mechanical Ventilator 100 10/11/17 03:30 104 22 119/59 94 Mechanical Ventilator 100 10/11/17 03:09 105 22 100 10/11/17 03:00 105 22 129/63 94 Mechanical Ventilator 100 10/11/17 02:30 105 23 128/60 94 Mechanical Ventilator 100 10/11/17 02:00 107 22 129/59 95 Mechanical Ventilator 100 10/11/17 01:30 109 23 129/58 95 Mechanical Ventilator 100 10/11/17 01:09 112 25 100 10/11/17 01:00 114 25 137/62 95 Mechanical Ventilator 100 10/11/17 00:30 98.2 103 23 127/50 95 Mechanical Ventilator 100 10/11/17 00:00 100 10/11/17 00:00 103 10/11/17 00:00 103 23 125/58 94 Mechanical Ventilator 100 10/10/17 23:30 103 23 125/55 94 Mechanical Ventilator 100 10/10/17 23:01 104 24 100 10/10/17 23:00 104 23 124/49 94 Mechanical Ventilator 100 10/10/17 22:30 104 23 123/52 94 Mechanical Ventilator 100 10/10/17 22:00 104 23 123/51 94 Mechanical Ventilator 100 10/10/17 21:30 104 23 121/53 94 Mechanical Ventilator 100 10/10/17 21:07 109 24 100 10/10/17 21:00 108 23 108/43 93 Mechanical Ventilator 100 10/10/17 20:30 103 23 121/57 92 Mechanical Ventilator 100 10/10/17 20:00 102 10/10/17 20:00 98.7 102 22 119/49 92 Mechanical Ventilator 100 10/10/17 20:00 100 10/10/17 19:30 102 21 122/50 92 Mechanical Ventilator 100 10/10/17 19:12 103 22 100 10/10/17 19:00 103 20 120/49 94 Mechanical Ventilator 100 10/10/17 19:00 19 10/10/17 19:00 19 10/10/17 18:30 105 19 114/49 94 Mechanical Ventilator 100 10/10/17 18:00 106 18 117/52 94 Mechanical Ventilator 100 10/10/17 18:00 20 10/10/17 18:00 20 10/10/17 17:30 107 18 115/51 84 Mechanical Ventilator 100 10/10/17 17:00 19 10/10/17 17:00 19 10/10/17 17:00 90 18 136/66 84 Mechanical Ventilator 100 10/10/17 16:59 111 27 100 10/10/17 16:30 92 17 145/66 84 Mechanical Ventilator 100 10/10/17 16:00 100 10/10/17 16:00 92 10/10/17 16:00 98.2 93 19 108/48 91 Mechanical Ventilator 100 10/10/17 16:00 18 10/10/17 16:00 18 10/10/17 15:30 93 17 108/50 90 Mechanical Ventilator 100 10/10/17 15:29 93 20 100 10/10/17 15:00 18 10/10/17 15:00 18 10/10/17 15:00 95 17 110/49 91 Mechanical Ventilator 100 10/10/17 14:58 98.7 10/10/17 14:30 94 17 108/48 91 Mechanical Ventilator 100 10/10/17 14:28 20 10/10/17 14:00 17 10/10/17 14:00 17 10/10/17 14:00 93 17 110/51 91 Mechanical Ventilator 100 10/10/17 13:30 93 18 111/54 91 Mechanical Ventilator 100 10/10/17 13:15 93 18 100 10/10/17 13:00 92 18 112/53 91 Mechanical Ventilator 100 10/10/17 13:00 18 10/10/17 13:00 18 10/10/17 12:30 96 19 108/55 91 Mechanical Ventilator 100 10/10/17 12:00 100 10/10/17 12:00 98.7 94 19 108/50 91 Mechanical Ventilator 100 10/10/17 12:00 18 10/10/17 12:00 18 10/10/17 12:00 93 10/10/17 11:30 95 19 108/55 91 Mechanical Ventilator 100 10/10/17 11:15 95 18 100 10/10/17 11:00 17 10/10/17 11:00 19 10/10/17 11:00 98 20 109/54 89 Mechanical Ventilator 100 10/10/17 10:36 98.2 10/10/17 10:30 99 20 108/53 89 Mechanical Ventilator 100 10/10/17 10:06 18 Intake and Output 10/11/17 10/12/17 19:00 07:00 Intake Total 449.50 ml Output Total 350 ml Balance 99.50 ml IV Total 279.50 ml Tube Feeding 90 ml Other 80 ml Output Urine Total 350 ml Laboratory Tests 10/11/17 05:00: White Blood Count 11.7H, Red Blood Count 6.52H, Hemoglobin 12.1L, Hematocrit 43.1, Mean Corpuscular Volume 66L, Mean Corpuscular Hemoglobin 18.6L, Mean Corpuscular Hemoglobin Concent 28.1L, Red Cell Distribution Width 20.6H, Platelet Count 78L, Mean Platelet Volume 8.2, Neutrophils (%) (Auto) , Lymphocytes (%) (Auto) , Monocytes (%) (Auto) , Eosinophils (%) (Auto) , Basophils (%) (Auto) , Sodium Level 146H, Potassium Level 3.7, Chloride Level 108H, Carbon Dioxide Level 37H, Anion Gap 1L, Blood Urea Nitrogen 25H, Creatinine 2.5H, Estimat Glomerular Filtration Rate 28.7, Glucose Level 111H, Uric Acid 9.0H, Calcium Level 8.3L, Phosphorus Level 2.5, Magnesium Level 2.0, Total Bilirubin 1.5H, Direct Bilirubin 0.4H, Gamma Glutamyl Transpeptidase 20, Aspartate Amino Transf (AST/SGOT) 28, Alanine Aminotransferase (ALT/SGPT) 11L, Alkaline Phosphatase 45L, Total Creatine Kinase 44, C-Reactive Protein, Quantitative 65.0H, Pro-B-Type Natriuretic Peptide 3628H, Total Protein 6.8, Albumin 1.9L, Globulin 4.9, Albumin/Globulin Ratio 0.4L 10/11/17 08:45: Arterial Blood pH 7.400, Arterial Blood Partial Pressure CO2 56.5*H, Arterial Blood Partial Pressure O2 63.9L, Arterial Blood HCO3 34.2H, Arterial Blood Oxygen Saturation 90.9L, Arterial Blood Base Excess 7.7, Naif Test Positive Height (Feet): 5 Height (Inches): 4.00 Weight (Pounds): 356 General Appearance: no apparent distress, other - limited eval. as patient is intubared and sedated EENT: other - limited eval. as patient is intubared and sedated Cardiovascular: normal rate Respiratory/Chest: rhonchi - bilaterally Abdomen: soft Genitourinary/Rectal: other - Diffuse swelling in scrotal area Extremities: other - limited eval. as patient is intubared and sedated Neurologic: other - limited eval. as patient is intubared and sedated Nery Combs MD Oct 11, 2017 10:08
--- NOTE | 2017-10-11 10:29 | Pulmonolgy Critical Care Note ---
Critical Care - Asmt/Plan Problems: (1) Respiratory distress (2) Pulmonary edema (3) Anasarca (4) scotal cellutis Respiratory: monitor respiratory rate, adjust FIO2, CXR, ABG, other - oxygenation slightly better Cardiac: continue to monitor HR/BP Renal: F/U I&O, keep IV fluid, check electrolytes Infectious Disease: check cultures, continue antibiotics Gastrointestinal: continue feedings/current rate Endocrine: monitor blood sugar, continue sliding scale insulin Hematologic: monitor H/H, transfuse if hgb<8.5 Neurologic: PRN Ativan, keep patient comfortable Affect: PRN ativan Prophylaxis: Protonix Disposition: keep in ICU Notes Reviewed: direct marketing analyst, renal Discussed with: nurses, consultants, family service caseworkertransit manager - Objective Last 24 Hour Vital Signs Date Time Temp Pulse Resp B/P (MAP) Pulse Ox O2 Delivery O2 Flow Rate FiO2 10/11/17 10:00 92 24 112/52 92 Mechanical Ventilator 100 10/11/17 09:43 97 27 100 10/11/17 09:30 99 23 116/55 95 Mechanical Ventilator 100 10/11/17 09:00 96 23 115/51 95 Mechanical Ventilator 100 10/11/17 08:30 101 24 126/59 94 Mechanical Ventilator 100 10/11/17 08:25 101.0 10/11/17 08:00 101.9 102 21 125/62 95 Mechanical Ventilator 100 10/11/17 08:00 102 10/11/17 08:00 21 10/11/17 08:00 100 10/11/17 07:37 102 22 100 10/11/17 07:30 106 20 122/53 92 Mechanical Ventilator 100 10/11/17 07:00 101 21 123/62 97 Mechanical Ventilator 100 10/11/17 06:30 102 22 123/61 97 Mechanical Ventilator 100 10/11/17 06:00 107 22 119/53 97 Mechanical Ventilator 100 10/11/17 05:30 108 23 123/51 95 Mechanical Ventilator 100 10/11/17 05:00 112 22 88/73 92 Mechanical Ventilator 100 10/11/17 04:50 102 21 100 10/11/17 04:30 103 22 120/66 94 Mechanical Ventilator 100 10/11/17 04:00 100 10/11/17 04:00 103 10/11/17 04:00 98.3 103 22 126/53 94 Mechanical Ventilator 100 10/11/17 03:30 104 22 119/59 94 Mechanical Ventilator 100 10/11/17 03:09 105 22 100 10/11/17 03:00 105 22 129/63 94 Mechanical Ventilator 100 10/11/17 02:30 105 23 128/60 94 Mechanical Ventilator 100 10/11/17 02:00 107 22 129/59 95 Mechanical Ventilator 100 10/11/17 01:30 109 23 129/58 95 Mechanical Ventilator 100 10/11/17 01:09 112 25 100 10/11/17 01:00 114 25 137/62 95 Mechanical Ventilator 100 10/11/17 00:30 98.2 103 23 127/50 95 Mechanical Ventilator 100 10/11/17 00:00 100 10/11/17 00:00 103 10/11/17 00:00 103 23 125/58 94 Mechanical Ventilator 100 10/10/17 23:30 103 23 125/55 94 Mechanical Ventilator 100 10/10/17 23:01 104 24 100 10/10/17 23:00 104 23 124/49 94 Mechanical Ventilator 100 10/10/17 22:30 104 23 123/52 94 Mechanical Ventilator 100 10/10/17 22:00 104 23 123/51 94 Mechanical Ventilator 100 10/10/17 21:30 104 23 121/53 94 Mechanical Ventilator 100 10/10/17 21:07 109 24 100 10/10/17 21:00 108 23 108/43 93 Mechanical Ventilator 100 10/10/17 20:30 103 23 121/57 92 Mechanical Ventilator 100 10/10/17 20:00 102 10/10/17 20:00 98.7 102 22 119/49 92 Mechanical Ventilator 100 10/10/17 20:00 100 10/10/17 19:30 102 21 122/50 92 Mechanical Ventilator 100 10/10/17 19:12 103 22 100 10/10/17 19:00 103 20 120/49 94 Mechanical Ventilator 100 10/10/17 19:00 19 10/10/17 19:00 19 10/10/17 18:30 105 19 114/49 94 Mechanical Ventilator 100 10/10/17 18:00 106 18 117/52 94 Mechanical Ventilator 100 10/10/17 18:00 20 10/10/17 18:00 20 10/10/17 17:30 107 18 115/51 84 Mechanical Ventilator 100 12/13/17 17:00 19 10/10/17 17:00 19 10/10/17 17:00 90 18 136/66 84 Mechanical Ventilator 100 10/10/17 16:59 111 27 100 10/10/17 16:30 92 17 145/66 84 Mechanical Ventilator 100 10/10/17 16:00 100 10/10/17 16:00 92 10/10/17 16:00 98.2 93 19 108/48 91 Mechanical Ventilator 100 10/10/17 16:00 18 10/10/17 16:00 18 10/10/17 15:30 93 17 108/50 90 Mechanical Ventilator 100 10/10/17 15:29 93 20 100 10/10/17 15:00 18 10/10/17 15:00 18 10/10/17 15:00 95 17 110/49 91 Mechanical Ventilator 100 10/10/17 14:58 98.7 10/10/17 14:30 94 17 108/48 91 Mechanical Ventilator 100 10/10/17 14:28 20 10/10/17 14:00 17 10/10/17 14:00 17 10/10/17 14:00 93 17 110/51 91 Mechanical Ventilator 100 10/10/17 13:30 93 18 111/54 91 Mechanical Ventilator 100 10/10/17 13:15 93 18 100 10/10/17 13:00 92 18 112/53 91 Mechanical Ventilator 100 10/10/17 13:00 18 10/10/17 13:00 18 10/10/17 12:30 96 19 108/55 91 Mechanical Ventilator 100 10/10/17 12:00 100 10/10/17 12:00 98.7 94 19 108/50 91 Mechanical Ventilator 100 10/10/17 12:00 18 10/10/17 12:00 18 10/10/17 12:00 93 10/10/17 11:30 95 19 108/55 91 Mechanical Ventilator 100 10/10/17 11:15 95 18 100 10/10/17 11:00 17 10/10/17 11:00 19 10/10/17 11:00 98 20 109/54 89 Mechanical Ventilator 100 10/10/17 10:36 98.2 10/10/17 10:30 99 20 108/53 89 Mechanical Ventilator 100 Status: awake Condition: critical HEENT: atraumatic Lungs: clear Heart: HR/BP stable Abdomen: soft, non-tender Extremities: edema Micro: Microbiology Date/Time Source Procedure Growth Status 10/08/17 21:00 Sputum Gram Stain - Final Complete 10/08/17 21:00 Sputum Culture - Final Proteus Mirabilis Usual Upper Respiratory Magi Complete 10/08/17 21:00 Urine,Clean Catch Urine Culture - Final NO GROWTH AFTER 48 HOURS Complete Critical Care - Subjective ROS Limited/Unobtainable: No ICU Day: 4 Intubation Day: 4 Interval Events: very comfortable, off sedation Condition: critical EKG Rhythm: Sinus Bradycardia FI02: 100 Vent Support Breath Rate: 18 Vent Support Mode: AC - still on PEEP of 16 Vent Tidal Volume: 550 Sputum Amount: Scant PEEP: 16.0 PIP: 35 Tube Feeding Amount: 30 I&O: Intake and Output 10/11/17 10/12/17 19:00 07:00 Intake Total 449.50 ml Output Total 350 ml Balance 99.50 ml IV Total 279.50 ml Tube Feeding 90 ml Other 80 ml Output Urine Total 350 ml CXR: ET in good position ET-Tube: 7.5 ET Position: 25 Labs: Laboratory Tests Test 10/11/17 05:00 10/11/17 08:45 White Blood Count 11.7 K/UL (4.8-10.8) H Red Blood Count 6.52 M/UL (4.70-6.10) H Hemoglobin 12.1 G/DL (14.2-18.0) L Hematocrit 43.1 % (42.0-52.0) Mean Corpuscular Volume 66 FL (80-99) L Mean Corpuscular Hemoglobin 18.6 PG (27.0-31.0) L Mean Corpuscular Hemoglobin Concent 28.1 G/DL (32.0-36.0) L Red Cell Distribution Width 20.6 % (11.6-14.8) H Platelet Count 78 K/UL (150-450) L Mean Platelet Volume 8.2 FL (6.5-10.1) Neutrophils (%) (Auto) % (45.0-75.0) Lymphocytes (%) (Auto) % (20.0-45.0) Monocytes (%) (Auto) % (1.0-10.0) Eosinophils (%) (Auto) % (0.0-3.0) Basophils (%) (Auto) % (0.0-2.0) Sodium Level 146 MMOL/L (136-145) H Potassium Level 3.7 MMOL/L (3.5-5.1) Chloride Level 108 MMOL/L (98-107) H Carbon Dioxide Level 37 MMOL/L (21-32) H Anion Gap 1 mmol/L (5-15) L Blood Urea Nitrogen 25 mg/dL (7-18) H Creatinine 2.5 MG/DL (0.55-1.30) H Estimat Glomerular Filtration Rate 28.7 mL/min (>60) Glucose Level 111 MG/DL (74-106) H Uric Acid 9.0 MG/DL (2.6-7.2) H Calcium Level 8.3 MG/DL (8.5-10.1) L Phosphorus Level 2.5 MG/DL (2.5-4.9) Magnesium Level 2.0 MG/DL (1.8-2.4) Total Bilirubin 1.5 MG/DL (0.2-1.0) H Direct Bilirubin 0.4 MG/DL (0.0-0.3) H Gamma Glutamyl Transpeptidase 20 U/L (5-85) Aspartate Amino Transf (AST/SGOT) 28 U/L (15-37) Alanine Aminotransferase (ALT/SGPT) 11 U/L (12-78) L Alkaline Phosphatase 45 U/L (46-116) L Total Creatine Kinase 44 U/L (26-308) C-Reactive Protein, Quantitative 65.0 mg/dL (0.00-0.90) H Pro-B-Type Natriuretic Peptide 3628 pg/mL (0-125) H Total Protein 6.8 G/DL (6.4-8.2) Albumin 1.9 G/DL (3.4-5.0) L Globulin 4.9 g/dL Albumin/Globulin Ratio 0.4 (1.0-2.7) L Arterial Blood pH 7.400 (7.350-7.450) Arterial Blood Partial Pressure CO2 56.5 mmHg (35.0-45.0) *H Arterial Blood Partial Pressure O2 63.9 mmHg (75.0-100.0) L Arterial Blood HCO3 34.2 mmol/L (22.0-26.0) H Arterial Blood Oxygen Saturation 90.9 % (92.0-98.0) L Arterial Blood Base Excess 7.7 Naif Test Positive DWAYNE GROSS Oct 11, 2017 10:29
--- NOTE | 2017-10-11 11:01 | Diagnostic Imaging Report ---
APPROVED REPORT CPT Code: 99741 Present Symptoms Comments: Dyspnea BILATERAL: Imaging reveals a patent deep venous system bilaterally. There is no evidence of thrombus within the femoral, popliteal or tibial segments. The greater saphenous veins are also within normal limits. Doppler indicates normal spontaneous flow within these segments.
--- NOTE | 2017-10-11 12:18 | Diagnostic Imaging Report ---
Indication: Dyspnea Technique: XRAY Chest 1v Comparison: 10/10/2017 Findings: Right PICC line has its catheter tip in the region of the upper SVC. Endotracheal tube and nasogastric tube unchanged in position. Its size and mediastinal contours are stable. There is interstitial opacification edema and patchy bilateral airspace opacities. Dense retrocardiac opacity is again noted. There is interval development of a dense somewhat round opacity at the right base. There is no pneumothorax. Multifocal degenerative changes are seen in the thoracic spine. No acute osseous abnormality noted. Impression: Persistent interstitial and bilateral airspace opacities. Increased density of a rounded right lower lobe opacity. Follow-up exam recommended.
--- NOTE | 2017-10-11 14:24 | Nephrology Progress Note ---
Assessment/Plan Problem List: (1) Acute respiratory failure (2) Acute renal failure Assessment: with previous urinary out let obstruction Assessment acute renal failure- rising Cr 2.5 Acute Respiratory distress , ? aspiration pneumonia Acute Pulmonary edema Anasarca scotal cellutis Morbid obesity. Thrombocytopenia. Abnormal blood sugar. Anemia. Plan Plan: K and Mag supplement Keep BP in check pulm support avoid nephrotoxics monitor renal parameters per consultants per orders Left ventricular ejection fraction estimated to be grossly normal. Mild left ventricular hypertrophy. Subjective ROS Limited/Unobtainable: Yes Objective Objective Last 24 Hour Vital Signs Date Time Temp Pulse Resp B/P (MAP) Pulse Ox O2 Delivery O2 Flow Rate FiO2 10/11/17 13:20 106 26 100 10/11/17 13:00 102 25 123/65 93 Mechanical Ventilator 100 10/11/17 12:24 99.9 10/11/17 12:00 96 10/11/17 12:00 100 10/11/17 12:00 100.7 97 23 121/53 92 Mechanical Ventilator 100 10/11/17 11:30 93 24 118/51 93 Mechanical Ventilator 100 10/11/17 11:12 95 21 100 10/11/17 11:00 93 23 117/55 93 Mechanical Ventilator 100 10/11/17 10:30 93 24 115/51 92 Mechanical Ventilator 100 10/11/17 10:00 92 24 112/52 92 Mechanical Ventilator 100 10/11/17 09:43 97 27 100 10/11/17 09:30 99 23 116/55 95 Mechanical Ventilator 100 10/11/17 09:00 96 23 115/51 95 Mechanical Ventilator 100 10/11/17 08:30 101 24 126/59 94 Mechanical Ventilator 100 10/11/17 08:00 101.9 102 21 125/62 95 Mechanical Ventilator 100 10/11/17 08:00 102 10/11/17 08:00 21 10/11/17 08:00 100 10/11/17 07:37 102 22 100 10/11/17 07:30 106 20 122/53 92 Mechanical Ventilator 100 10/11/17 07:00 101 21 123/62 97 Mechanical Ventilator 100 10/11/17 06:30 102 22 123/61 97 Mechanical Ventilator 100 10/11/17 06:00 107 22 119/53 97 Mechanical Ventilator 100 10/11/17 05:30 108 23 123/51 95 Mechanical Ventilator 100 10/11/17 05:00 112 22 88/73 92 Mechanical Ventilator 100 10/11/17 04:50 102 21 100 10/11/17 04:30 103 22 120/66 94 Mechanical Ventilator 100 10/11/17 04:00 100 10/11/17 04:00 103 10/11/17 04:00 98.3 103 22 126/53 94 Mechanical Ventilator 100 10/11/17 03:30 104 22 119/59 94 Mechanical Ventilator 100 10/11/17 03:09 105 22 100 10/11/17 03:00 105 22 129/63 94 Mechanical Ventilator 100 10/11/17 02:30 105 23 128/60 94 Mechanical Ventilator 100 10/11/17 02:00 107 22 129/59 95 Mechanical Ventilator 100 10/11/17 01:30 109 23 129/58 95 Mechanical Ventilator 100 10/11/17 01:09 112 25 100 10/11/17 01:00 114 25 137/62 95 Mechanical Ventilator 100 10/11/17 00:30 98.2 103 23 127/50 95 Mechanical Ventilator 100 10/11/17 00:00 100 10/11/17 00:00 103 10/11/17 00:00 103 23 125/58 94 Mechanical Ventilator 100 10/10/17 23:30 103 23 125/55 94 Mechanical Ventilator 100 10/10/17 23:01 104 24 100 10/10/17 23:00 104 23 124/49 94 Mechanical Ventilator 100 10/10/17 22:30 104 23 123/52 94 Mechanical Ventilator 100 10/10/17 22:00 104 23 123/51 94 Mechanical Ventilator 100 10/10/17 21:30 104 23 121/53 94 Mechanical Ventilator 100 10/10/17 21:07 109 24 100 10/10/17 21:00 108 23 108/43 93 Mechanical Ventilator 100 10/10/17 20:30 103 23 121/57 92 Mechanical Ventilator 100 10/10/17 20:00 102 10/10/17 20:00 98.7 102 22 119/49 92 Mechanical Ventilator 100 10/10/17 20:00 100 10/10/17 19:30 102 21 122/50 92 Mechanical Ventilator 100 10/10/17 19:12 103 22 100 10/10/17 19:00 103 20 120/49 94 Mechanical Ventilator 100 10/10/17 19:00 19 10/10/17 19:00 19 10/10/17 18:30 105 19 114/49 94 Mechanical Ventilator 100 10/10/17 18:00 106 18 117/52 94 Mechanical Ventilator 100 10/10/17 18:00 20 10/10/17 18:00 20 10/10/17 17:30 107 18 115/51 84 Mechanical Ventilator 100 10/10/17 17:00 19 10/10/17 17:00 19 10/10/17 17:00 90 18 136/66 84 Mechanical Ventilator 100 10/10/17 16:59 111 27 100 10/10/17 16:30 92 17 145/66 84 Mechanical Ventilator 100 10/10/17 16:00 100 10/10/17 16:00 92 10/10/17 16:00 98.2 93 19 108/48 91 Mechanical Ventilator 100 10/10/17 16:00 18 10/10/17 16:00 18 10/10/17 15:30 93 17 108/50 90 Mechanical Ventilator 100 10/10/17 15:29 93 20 100 10/10/17 15:00 18 10/10/17 15:00 18 10/10/17 15:00 95 17 110/49 91 Mechanical Ventilator 100 10/10/17 14:58 98.7 10/10/17 14:30 94 17 108/48 91 Mechanical Ventilator 100 10/10/17 14:28 20 Intake and Output 10/11/17 10/12/17 19:00 07:00 Intake Total 627.00 ml Output Total 550 ml Balance 77.00 ml IV Total 307.00 ml Tube Feeding 180 ml Other 140 ml Output Urine Total 550 ml Laboratory Tests 10/11/17 05:00: White Blood Count 11.7H, Red Blood Count 6.52H, Hemoglobin 12.1L, Hematocrit 43.1, Mean Corpuscular Volume 66L, Mean Corpuscular Hemoglobin 18.6L, Mean Corpuscular Hemoglobin Concent 28.1L, Red Cell Distribution Width 20.6H, Platelet Count 78L, Mean Platelet Volume 8.2, Neutrophils (%) (Auto) , Lymphocytes (%) (Auto) , Monocytes (%) (Auto) , Eosinophils (%) (Auto) , Basophils (%) (Auto) , Sodium Level 146H, Potassium Level 3.7, Chloride Level 108H, Carbon Dioxide Level 37H, Anion Gap 1L, Blood Urea Nitrogen 25H, Creatinine 2.5H, Estimat Glomerular Filtration Rate 28.7, Glucose Level 111H, Uric Acid 9.0H, Calcium Level 8.3L, Phosphorus Level 2.5, Magnesium Level 2.0, Total Bilirubin 1.5H, Direct Bilirubin 0.4H, Gamma Glutamyl Transpeptidase 20, Aspartate Amino Transf (AST/SGOT) 28, Alanine Aminotransferase (ALT/SGPT) 11L, Alkaline Phosphatase 45L, Total Creatine Kinase 44, C-Reactive Protein, Quantitative 65.0H, Pro-B-Type Natriuretic Peptide 3628H, Total Protein 6.8, Albumin 1.9L, Globulin 4.9, Albumin/Globulin Ratio 0.4L 10/11/17 08:45: Arterial Blood pH 7.400, Arterial Blood Partial Pressure CO2 56.5*H, Arterial Blood Partial Pressure O2 63.9L, Arterial Blood HCO3 34.2H, Arterial Blood Oxygen Saturation 90.9L, Arterial Blood Base Excess 7.7, Naif Test Positive Height (Feet): 5 Height (Inches): 4.00 Weight (Pounds): 356 General Appearance: no apparent distress, other - on lower fentanyl drip Cardiovascular: tachycardia Respiratory/Chest: decreased breath sounds Abdomen: distended Objective no other change JAY YANCEY Oct 11, 2017 14:24
--- NOTE | 2017-10-11 15:10 | Infectious Diseases Prog Note ---
Assessment/Plan Assessment/Plan ASSESSMENT: The patient is a 42-year-old male with, fever Possible aspiration pneumonia versus community-acquired pneumonia. Scx : P mirabilis 10/09 Xray worsening left basilar infiltrates versus edema Probable scrotal cellulitis versus discoloration of genitalia due to edema. Ventilator-dependent respiratory failure. Rule out bacteremia. CORA PICC 10/09 VDRF Congestive heart failure. PLAN: cont pt on vancomycin and Zosyn and Doxy d# 4 Monitor CBC. Monitor BMP. Monitor cultures (blood, urine, and sputum). Continue vent support. Monitor chest x-ray Subjective Allergies: Coded Allergies: No Known Allergies (Unverified , 10/06/17) Subjective on Vent , febrile Objective Vital Signs Last 24 Hour Vital Signs Date Time Temp Pulse Resp B/P (MAP) Pulse Ox O2 Delivery O2 Flow Rate FiO2 10/11/17 15:00 92 24 112/54 91 Mechanical Ventilator 100 10/11/17 14:00 88 24 110/54 91 Mechanical Ventilator 100 10/11/17 13:20 106 26 100 10/11/17 13:00 102 25 123/65 93 Mechanical Ventilator 100 10/11/17 12:24 99.9 10/11/17 12:00 96 10/11/17 12:00 100 10/11/17 12:00 100.7 97 23 121/53 92 Mechanical Ventilator 100 10/11/17 11:30 93 24 118/51 93 Mechanical Ventilator 100 10/11/17 11:12 95 21 100 10/11/17 11:00 93 23 117/55 93 Mechanical Ventilator 100 10/11/17 10:30 93 24 115/51 92 Mechanical Ventilator 100 10/11/17 10:00 92 24 112/52 92 Mechanical Ventilator 100 10/11/17 09:43 97 27 100 10/11/17 09:30 99 23 116/55 95 Mechanical Ventilator 100 10/11/17 09:00 96 23 115/51 95 Mechanical Ventilator 100 10/11/17 08:30 101 24 126/59 94 Mechanical Ventilator 100 10/11/17 08:00 101.9 102 21 125/62 95 Mechanical Ventilator 100 10/11/17 08:00 102 10/11/17 08:00 21 10/11/17 08:00 100 10/11/17 07:37 102 22 100 10/11/17 07:30 106 20 122/53 92 Mechanical Ventilator 100 10/11/17 07:00 101 21 123/62 97 Mechanical Ventilator 100 10/11/17 06:30 102 22 123/61 97 Mechanical Ventilator 100 10/11/17 06:00 107 22 119/53 97 Mechanical Ventilator 100 10/11/17 05:30 108 23 123/51 95 Mechanical Ventilator 100 10/11/17 05:00 112 22 88/73 92 Mechanical Ventilator 100 10/11/17 04:50 102 21 100 10/11/17 04:30 103 22 120/66 94 Mechanical Ventilator 100 10/11/17 04:00 100 10/11/17 04:00 103 10/11/17 04:00 98.3 103 22 126/53 94 Mechanical Ventilator 100 10/11/17 03:30 104 22 119/59 94 Mechanical Ventilator 100 10/11/17 03:09 105 22 100 10/11/17 03:00 105 22 129/63 94 Mechanical Ventilator 100 10/11/17 02:30 105 23 128/60 94 Mechanical Ventilator 100 10/11/17 02:00 107 22 129/59 95 Mechanical Ventilator 100 10/11/17 01:30 109 23 129/58 95 Mechanical Ventilator 100 10/11/17 01:09 112 25 100 10/11/17 01:00 114 25 137/62 95 Mechanical Ventilator 100 10/11/17 00:30 98.2 103 23 127/50 95 Mechanical Ventilator 100 10/11/17 00:00 100 10/11/17 00:00 103 10/11/17 00:00 103 23 125/58 94 Mechanical Ventilator 100 10/10/17 23:30 103 23 125/55 94 Mechanical Ventilator 100 10/10/17 23:01 104 24 100 10/10/17 23:00 104 23 124/49 94 Mechanical Ventilator 100 10/10/17 22:30 104 23 123/52 94 Mechanical Ventilator 100 10/10/17 22:00 104 23 123/51 94 Mechanical Ventilator 100 10/10/17 21:30 104 23 121/53 94 Mechanical Ventilator 100 10/10/17 21:07 109 24 100 10/10/17 21:00 108 23 108/43 93 Mechanical Ventilator 100 10/10/17 20:30 103 23 121/57 92 Mechanical Ventilator 100 10/10/17 20:00 102 10/10/17 20:00 98.7 102 22 119/49 92 Mechanical Ventilator 100 10/10/17 20:00 100 10/10/17 19:30 102 21 122/50 92 Mechanical Ventilator 100 10/10/17 19:12 103 22 100 10/10/17 19:00 103 20 120/49 94 Mechanical Ventilator 100 10/10/17 19:00 19 10/10/17 19:00 19 10/10/17 18:30 105 19 114/49 94 Mechanical Ventilator 100 10/10/17 18:00 106 18 117/52 94 Mechanical Ventilator 100 10/10/17 18:00 20 10/10/17 18:00 20 10/10/17 17:30 107 18 115/51 84 Mechanical Ventilator 100 10/10/17 17:00 19 10/10/17 17:00 19 10/10/17 17:00 90 18 136/66 84 Mechanical Ventilator 100 10/10/17 16:59 111 27 100 10/10/17 16:30 92 17 145/66 84 Mechanical Ventilator 100 10/10/17 16:00 100 10/10/17 16:00 92 10/10/17 16:00 98.2 93 19 108/48 91 Mechanical Ventilator 100 10/10/17 16:00 18 10/10/17 16:00 18 10/10/17 15:30 93 17 108/50 90 Mechanical Ventilator 100 10/10/17 15:29 93 20 100 Height (Feet): 5 Height (Inches): 4.00 Weight (Pounds): 356 Respiratory/Chest: respiratory distress Cardiovascular: normal peripheral pulses Abdomen: non distended Microbiology Date/Time Source Procedure Growth Status 10/08/17 21:00 Sputum Gram Stain - Final Complete 10/08/17 21:00 Sputum Culture - Final Proteus Mirabilis Usual Upper Respiratory Magi Complete 10/08/17 21:00 Urine,Clean Catch Urine Culture - Final NO GROWTH AFTER 48 HOURS Complete Laboratory Tests Test 10/11/17 05:00 10/11/17 08:45 White Blood Count 11.7 K/UL (4.8-10.8) H Red Blood Count 6.52 M/UL (4.70-6.10) H Hemoglobin 12.1 G/DL (14.2-18.0) L Hematocrit 43.1 % (42.0-52.0) Mean Corpuscular Volume 66 FL (80-99) L Mean Corpuscular Hemoglobin 18.6 PG (27.0-31.0) L Mean Corpuscular Hemoglobin Concent 28.1 G/DL (32.0-36.0) L Red Cell Distribution Width 20.6 % (11.6-14.8) H Platelet Count 78 K/UL (150-450) L Mean Platelet Volume 8.2 FL (6.5-10.1) Neutrophils (%) (Auto) % (45.0-75.0) Lymphocytes (%) (Auto) % (20.0-45.0) Monocytes (%) (Auto) % (1.0-10.0) Eosinophils (%) (Auto) % (0.0-3.0) Basophils (%) (Auto) % (0.0-2.0) Sodium Level 146 MMOL/L (136-145) H Potassium Level 3.7 MMOL/L (3.5-5.1) Chloride Level 108 MMOL/L (98-107) H Carbon Dioxide Level 37 MMOL/L (21-32) H Anion Gap 1 mmol/L (5-15) L Blood Urea Nitrogen 25 mg/dL (7-18) H Creatinine 2.5 MG/DL (0.55-1.30) H Estimat Glomerular Filtration Rate 28.7 mL/min (>60) Glucose Level 111 MG/DL (74-106) H Uric Acid 9.0 MG/DL (2.6-7.2) H Calcium Level 8.3 MG/DL (8.5-10.1) L Phosphorus Level 2.5 MG/DL (2.5-4.9) Magnesium Level 2.0 MG/DL (1.8-2.4) Total Bilirubin 1.5 MG/DL (0.2-1.0) H Direct Bilirubin 0.4 MG/DL (0.0-0.3) H Gamma Glutamyl Transpeptidase 20 U/L (5-85) Aspartate Amino Transf (AST/SGOT) 28 U/L (15-37) Alanine Aminotransferase (ALT/SGPT) 11 U/L (12-78) L Alkaline Phosphatase 45 U/L (46-116) L Total Creatine Kinase 44 U/L (26-308) C-Reactive Protein, Quantitative 65.0 mg/dL (0.00-0.90) H Pro-B-Type Natriuretic Peptide 3628 pg/mL (0-125) H Total Protein 6.8 G/DL (6.4-8.2) Albumin 1.9 G/DL (3.4-5.0) L Globulin 4.9 g/dL Albumin/Globulin Ratio 0.4 (1.0-2.7) L Arterial Blood pH 7.400 (7.350-7.450) Arterial Blood Partial Pressure CO2 56.5 mmHg (35.0-45.0) *H Arterial Blood Partial Pressure O2 63.9 mmHg (75.0-100.0) L Arterial Blood HCO3 34.2 mmol/L (22.0-26.0) H Arterial Blood Oxygen Saturation 90.9 % (92.0-98.0) L Arterial Blood Base Excess 7.7 Naif Test Positive Current Medications Medications (Trade) Dose Ordered Sig/Prince Route PRN Reason Start Time Stop Time Status Last Admin Dose Admin Acetaminophen (Tylenol) 650 mg EVERY 4 HOURS PRN NG Mild Pain/Temp > 100.5 10/09/17 10:15 11/08/17 10:14 10/11/17 11:54 Chlorhexidine Gluconate (Sol-Hex 2%) 1 applic DAILY@2000 TOPIC 10/09/17 20:00 11/08/17 19:59 10/10/17 20:20 Doxycycline Monohydrate (Vibramycin) 100 mg Q12HR@0600,1800 GT 10/08/17 16:30 10/15/17 16:29 10/11/17 05:39 Fentanyl Citrate 1000 mcg/Sodium Chloride 100 ml @ 0 mls/hr Q24H IV 10/07/17 19:00 10/14/17 18:59 10/10/17 10:06 Haloperidol Lactate 5 mg/ Dextrose 56 ml @ 224 mls/hr Q1H PRN IVPB BREAKTHROUGH AGITATION 10/08/17 17:00 11/07/17 16:59 10/09/17 07:12 Heparin Sodium (Porcine) (Heparin 5000 units/ml) 5,000 units DAILY SUBQ 10/08/17 11:00 11/07/17 10:59 10/08/17 11:13 Lorazepam (Ativan 2mg/ml 1ml) 2 mg Q4H PRN IV For Anxiety 10/07/17 11:00 10/14/17 10:59 10/09/17 00:26 Midazolam HCl 100 ml @ 0 mls/hr Q24H IVPB 10/07/17 18:30 10/14/17 18:29 10/10/17 14:28 Morphine Sulfate (Morphine Sulfate) 4 mg Q4H PRN IVP For Pain 10/07/17 11:00 10/14/17 10:59 Pantoprazole (Protonix) 40 mg DAILY IV 10/07/17 11:00 11/06/17 10:59 10/11/17 08:34 Piperacillin Sod/ Tazobactam Sod 3.375 gm/Dextrose 55 ml @ 13.75 mls/ hr Q8H IVPB 10/07/17 16:00 10/14/17 15:59 10/11/17 07:56 Vancomycin HCl (Vanco rx to dose) 1 ea DAILY PRN MISC PER RX PROTOCOL 10/07/17 11:00 11/06/17 10:59 CATALINA PARRA M.D. Oct 11, 2017 15:10
[2017-10-11] MEDS ORDERED: Tubing IV Secondary IV ONE (17:25)
[2017-10-11] MEDS ORDERED: NS 500ML ONE (17:25)
[2017-10-11] MEDS: Midazolam/D5W 100ml 100 ML IVPB SCH (18:30)
[2017-10-11] MEDS: Dyna-Hex 2% Top Sol 2oz TOPIC SCH (20:48)
[2017-10-12] VITALS (52 sets, daily range): BP systolic 97–129; BP diastolic 50–81
[2017-10-12] MEDS: Piperacillin/Tazobactam 3.375 GM in D5W 55 ML IVPB SCH ×3 (00:03→19:46)
[2017-10-12] MEDS: LORazepam Inj 2mg/ml 1ml IV PRN (00:09)
[2017-10-12] MEDS: Midazolam/D5W 100ml 100 ML IVPB SCH (00:24)
[2017-10-12 06:16] LABS: HEMATOCRIT 43.1 % (42.0-52.0); HEMOGLOBIN 11.9 G/DL (14.2-18.0); MEAN CORPUSCULAR VOLUME 67 FL (80-99); PLATELET COUNT 62 K/UL (150-450); RED BLOOD COUNT 6.47 M/UL (4.70-6.10); RED CELL DISTRIBUTION WIDTH 20.3 % (11.6-14.8); WHITE BLOOD COUNT 12.8 K/UL (4.8-10.8)
[2017-10-12 06:53] LABS: ALANINE AMINOTRANSFERASE 12 U/L (12-78); ALBUMIN 1.8 G/DL (3.4-5.0); ALBUMIN/GLOBULIN RATIO 0.3 (1.0-2.7); ALKALINE PHOSPHATASE 47 U/L (46-116); ANION GAP 2 mmol/L (5-15); ASPARTATE AMINO TRANSFERASE 30 U/L (15-37); BILIRUBIN,TOTAL 1.2 MG/DL (0.2-1.0); BLOOD UREA NITROGEN 32 mg/dL (7-18); CALCIUM 8.3 MG/DL (8.5-10.1); CARBON DIOXIDE 37 MMOL/L (21-32); CHLORIDE 110 MMOL/L (98-107); CREATININE 2.7 MG/DL (0.55-1.30); SODIUM 149 MMOL/L (136-145)
[2017-10-12 06:54] LABS: BILIRUBIN,DIRECT 0.5 MG/DL (0.0-0.3)
[2017-10-12 07:14] LABS: CREATINE KINASE 92 U/L (26-308); GAMMA GLUTAMYL TRANSPEPTIDASE 20 U/L (5-85)
--- NOTE | 2017-10-12 07:34 | Pulmonolgy Critical Care Note ---
Critical Care - Asmt/Plan Assessment/Plan: ASSESSMENT Acute hypercapnic RF requiring intubation likely aspiration PNA with Proteus possible HCAP with Proteus acute pulmonary edema Probably scrotal cellulitis Urinary retention-relieved ARF likely ATN Thrombocytopenia psoriasis morbid obesity new onset of diabetes PLAN OF CARE ICU Vent support pulmonary toilet daily CXR ABG ABG this am with worsening hypercapnia, increase AC rate abx ID follows sputum cx + Proteus, urine cx negative, blood cx prel negative nephro follows renal parameters worse renal US with 1500cc urinary retention Carrington placed by urologist will follow scrotal US pending elevate scrotum Venous Duplex BLE monitor renal parameters, lytes avoid nephrotoxic ECHO with grossly preserved EF, normal wall motion to the extent visualized Pain management DVT/GI prophylaxis Monitor counts [id number] new onset of DM discussed with mother at the bedside in detail about poor prognosis and seriousness of condition case discussed and evaluated by supervising physician Critical Care - Objective Last 24 Hour Vital Signs Date Time Temp Pulse Resp B/P (MAP) Pulse Ox O2 Delivery O2 Flow Rate FiO2 10/12/17 07:00 20 10/12/17 07:00 20 10/12/17 07:00 88 18 105/58 79 Mechanical Ventilator 100 10/12/17 06:30 91 18 97/65 79 Mechanical Ventilator 100 10/12/17 06:00 18 10/12/17 06:00 25 10/12/17 06:00 91 18 109/58 88 Mechanical Ventilator 100 10/12/17 05:30 92 18 116/66 91 Mechanical Ventilator 100 10/12/17 05:00 78 18 116/68 90 Mechanical Ventilator 100 10/12/17 05:00 20 10/12/17 05:00 21 10/12/17 04:35 76 18 100 10/12/17 04:30 74 18 118/68 90 Mechanical Ventilator 100 10/12/17 04:00 100 10/12/17 04:00 73 10/12/17 04:00 24 10/12/17 04:00 17 10/12/17 04:00 97.9 74 18 117/70 90 Mechanical Ventilator 100 10/12/17 03:30 73 18 106/64 89 Mechanical Ventilator 100 10/12/17 03:07 73 18 100 10/12/17 03:00 23 10/12/17 03:00 24 10/12/17 03:00 73 18 105/68 89 Mechanical Ventilator 100 10/12/17 02:30 75 17 108/65 88 Mechanical Ventilator 100 10/12/17 02:00 76 17 113/66 88 Mechanical Ventilator 100 10/12/17 02:00 22 10/12/17 02:00 22 10/12/17 01:30 79 17 111/67 88 Mechanical Ventilator 100 10/12/17 01:00 22 10/12/17 01:00 22 10/12/17 01:00 82 18 113/64 87 Mechanical Ventilator 100 10/12/17 00:52 82 18 100 10/12/17 00:30 82 18 115/67 91 Mechanical Ventilator 100 10/12/17 00:24 18 10/12/17 00:00 24 10/12/17 00:00 24 10/12/17 00:00 99.3 91 22 119/81 89 Mechanical Ventilator 100 10/12/17 00:00 100 10/12/17 00:00 91 10/11/17 23:30 87 22 119/64 88 Mechanical Ventilator 100 10/11/17 23:00 85 22 117/64 88 Mechanical Ventilator 100 10/11/17 23:00 24 10/11/17 22:54 87 19 100 10/11/17 22:30 89 22 128/69 88 Mechanical Ventilator 100 10/11/17 22:00 95 22 86/42 88 Mechanical Ventilator 100 10/11/17 22:00 24 10/11/17 21:30 89 22 126/67 92 Mechanical Ventilator 100 10/11/17 21:13 95 22 100 10/11/17 21:00 95 24 116/71 93 Mechanical Ventilator 100 10/11/17 21:00 24 10/11/17 20:30 95 24 116/71 93 Mechanical Ventilator 100 10/11/17 20:15 101.6 94 24 122/65 93 Mechanical Ventilator 100 10/11/17 20:12 98 24 100 10/11/17 20:00 100 10/11/17 20:00 97 10/11/17 19:00 102.2 98 24 121/56 100 Mechanical Ventilator 100 10/11/17 18:42 102.0 10/11/17 18:17 106 27 100 10/11/17 18:00 102.6 108 24 121/58 90 Mechanical Ventilator 100 10/11/17 17:21 100.9 10/11/17 17:00 100.9 105 24 148/72 91 Mechanical Ventilator 100 10/11/17 16:51 26 10/11/17 16:00 100 10/11/17 16:00 102.1 98 23 114/58 92 Mechanical Ventilator 100 10/11/17 16:00 90 10/11/17 15:47 90 23 100 10/11/17 15:00 92 24 112/54 91 Mechanical Ventilator 100 10/11/17 14:00 88 24 110/54 91 Mechanical Ventilator 100 10/11/17 13:20 106 26 100 10/11/17 13:00 102 25 123/65 93 Mechanical Ventilator 100 10/11/17 12:00 96 10/11/17 12:00 100 10/11/17 12:00 100.7 97 23 121/53 92 Mechanical Ventilator 100 10/11/17 11:30 93 24 118/51 93 Mechanical Ventilator 100 10/11/17 11:12 95 21 100 10/11/17 11:00 93 23 117/55 93 Mechanical Ventilator 100 10/11/17 10:30 93 24 115/51 92 Mechanical Ventilator 100 10/11/17 10:00 92 24 112/52 92 Mechanical Ventilator 100 10/11/17 09:43 97 27 100 10/11/17 09:30 99 23 116/55 95 Mechanical Ventilator 100 10/11/17 09:00 96 23 115/51 95 Mechanical Ventilator 100 10/11/17 08:30 101 24 126/59 94 Mechanical Ventilator 100 10/11/17 08:00 101.9 102 21 125/62 95 Mechanical Ventilator 100 10/11/17 08:00 102 10/11/17 08:00 21 10/11/17 08:00 100 10/11/17 07:37 102 22 100 Status: sedated, other - morbidly obese middle age male, intubated Condition: critical HEENT: atraumatic, normocephalic, other - OP with ET in place, intact, NGT Lungs: rhonchi - few scattered Heart: HR/BP stable, other - RUE PICC intact Abdomen: soft - obese , active bowel sounds Extremities: no C/C/E Critical Care - Subjective ROS Limited/Unobtainable: Yes Interval Events: intubated remains on FiO2 100% with PEEP 16 leukocytosis sedated Condition: critical FI02: 100 Vent Support Breath Rate: 18 Vent Support Mode: AC Vent Tidal Volume: 550 Sputum Amount: Moderate PEEP: 16.0 PIP: 44 Drips: Fentanyl gtt 10 ml/hr, versed gtt 4 ml/hr-2mg/hr Tube Feeding Amount: 30 CXR: Persistent interstitial and bilateral airspace opacities. Increased density of a rounded right lower lobe opacity. ET-Tube: 7.5 ET Position: 25 [place] Oct 12, 2017 07:34
[2017-10-12] MEDS: Heparin 5000 units/ml inj SUBQ SCH (09:00)
[2017-10-12] MEDS ORDERED: Vancomycin 1.5 GM/D5W 250ML IVPB ONE (09:00)
[2017-10-12] MEDS ORDERED: Vancomycin 1.5 GM/D5W 250ML IVPB SCH (09:00)
[2017-10-12] MEDS: Pantoprazole Inj IV SCH (09:31)
[2017-10-12] MEDS: Acetaminophen 650mg/20.3ml NG PRN (11:30)
[2017-10-12] MEDS: NovoLOG Insulin Flexpen SUBQ SCH ×3 (11:30→21:00)
--- NOTE | 2017-10-12 12:41 | Diagnostic Imaging Report ---
. Indication: Dyspnea Technique: One view of the chest Comparison: 10/11/2017 Findings: Single satisfactory positions of endotracheal tube, nasogastric tube, right arm PICC. There is increasing bilateral interstitial and alveolar parenchymal disease. The heart remains enlarged Impression: Worsening bilateral interstitial and alveolar infiltrates versus edema, over one day Other stable findings as described
--- NOTE | 2017-10-12 13:00 | General Progress Note ---
Assessment/Plan Status: unchanged Assessment/Plan 1. VDRF 2. Hypoxemic respiratory failure. 3.Sepsis: Aspiration Gram negative HCA-PNA 4. Gram negative HCA-PNA 5. Cellulitis of the scrotal area. 6. Morbid obesity. 7. ARF 8. Obstructive uropathy 9. Thrombocytopenia. 10. DM-2 11. Anemia. 12. Gastrointestinal and deep vein thrombosis prophylaxes. 13. Psoriasis PLAN OF CARE: NOtes from Infectious Diseases Dr. Pineda, Nephrology, Dr Urrutia, Pulmonary Dr. Casas are reviewed status post insertion of urinary kellogg. current pulmonary management I spoke the care with the mother at bedside Guarded Prognosis Subjective ROS Limited/Unobtainable: Yes Allergies: Coded Allergies: No Known Allergies (Unverified , 10/06/17) Objective Last 24 Hour Vital Signs Date Time Temp Pulse Resp B/P (MAP) Pulse Ox O2 Delivery O2 Flow Rate FiO2 10/12/17 12:47 84 20 100 10/12/17 12:00 99 10/12/17 12:00 99.5 10/12/17 11:30 97 20 126/75 97 Mechanical Ventilator 100 10/12/17 11:00 20 10/12/17 11:00 100.0 97 20 129/74 97 Mechanical Ventilator 100 10/12/17 10:38 97 21 100 10/12/17 10:30 98 20 122/71 97 Mechanical Ventilator 100 10/12/17 10:21 100 10/12/17 10:00 96 18 122/70 95 Mechanical Ventilator 100 10/12/17 10:00 18 10/12/17 09:30 94 18 109/55 100 Mechanical Ventilator 100 10/12/17 09:22 86 20 100 10/12/17 09:00 93 18 115/55 100 Mechanical Ventilator 100 10/12/17 09:00 18 10/12/17 09:00 18 10/12/17 08:30 95 18 108/63 98 Mechanical Ventilator 100 10/12/17 08:29 18 10/12/17 08:00 98.2 90 18 104/62 91 Mechanical Ventilator 100 10/12/17 08:00 18 10/12/17 08:00 18 10/12/17 08:00 90 10/12/17 08:00 100 10/12/17 07:42 91 18 100 10/12/17 07:30 90 18 105/60 87 Mechanical Ventilator 100 10/12/17 07:00 20 10/12/17 07:00 20 10/12/17 07:00 88 18 105/58 79 Mechanical Ventilator 100 10/12/17 06:30 91 18 97/65 79 Mechanical Ventilator 100 10/12/17 06:00 18 10/12/17 06:00 25 10/12/17 06:00 91 18 109/58 88 Mechanical Ventilator 100 10/12/17 05:30 92 18 116/66 91 Mechanical Ventilator 100 10/12/17 05:00 78 18 116/68 90 Mechanical Ventilator 100 10/12/17 05:00 20 10/12/17 05:00 21 10/12/17 04:35 76 18 100 10/12/17 04:30 74 18 118/68 90 Mechanical Ventilator 100 10/12/17 04:00 100 10/12/17 04:00 73 10/12/17 04:00 24 10/12/17 04:00 17 10/12/17 04:00 97.9 74 18 117/70 90 Mechanical Ventilator 100 10/12/17 03:30 73 18 106/64 89 Mechanical Ventilator 100 10/12/17 03:07 73 18 100 10/12/17 03:00 23 10/12/17 03:00 24 10/12/17 03:00 73 18 105/68 89 Mechanical Ventilator 100 10/12/17 02:30 75 17 108/65 88 Mechanical Ventilator 100 10/12/17 02:00 76 17 113/66 88 Mechanical Ventilator 100 10/12/17 02:00 10/12/17 02:00 22 10/12/17 01:30 79 17 111/67 88 Mechanical Ventilator 100 10/12/17 01:00 22 10/12/17 01:00 22 10/12/17 01:00 82 18 113/64 87 Mechanical Ventilator 100 10/12/17 00:52 82 18 100 10/12/17 00:30 82 18 115/67 91 Mechanical Ventilator 100 10/12/17 00:24 18 10/12/17 00:00 24 10/12/17 00:00 24 10/12/17 00:00 99.3 91 22 119/81 89 Mechanical Ventilator 100 10/12/17 00:00 100 10/12/17 00:00 91 10/11/17 23:30 87 22 119/64 88 Mechanical Ventilator 100 10/11/17 23:00 85 22 117/64 88 Mechanical Ventilator 100 10/11/17 23:00 24 10/11/17 22:54 87 19 100 10/11/17 22:30 89 22 128/69 88 Mechanical Ventilator 100 10/11/17 22:00 95 22 86/42 88 Mechanical Ventilator 100 10/11/17 22:00 24 10/11/17 21:30 89 22 126/67 92 Mechanical Ventilator 100 10/11/17 21:13 95 22 100 10/11/17 21:00 95 24 116/71 93 Mechanical Ventilator 100 10/11/17 21:00 24 10/11/17 20:30 95 24 116/71 93 Mechanical Ventilator 100 10/11/17 20:15 101.6 94 24 122/65 93 Mechanical Ventilator 100 10/11/17 20:12 98 24 100 10/11/17 20:00 100 10/11/17 20:00 97 10/11/17 19:00 102.2 98 24 121/56 100 Mechanical Ventilator 100 10/11/17 18:17 106 27 100 10/11/17 18:00 102.6 108 24 121/58 90 Mechanical Ventilator 100 10/11/17 17:21 100.9 10/11/17 17:00 100.9 105 24 148/72 91 Mechanical Ventilator 100 10/11/17 16:51 26 10/11/17 16:00 100 10/11/17 16:00 102.1 98 23 114/58 92 Mechanical Ventilator 100 10/11/17 16:00 90 10/11/17 15:47 90 23 100 10/11/17 15:00 92 24 112/54 91 Mechanical Ventilator 100 10/11/17 14:00 88 24 110/54 91 Mechanical Ventilator 100 10/11/17 13:20 106 26 100 10/11/17 13:00 102 25 123/65 93 Mechanical Ventilator 100 Intake and Output 10/12/17 10/13/17 19:00 07:00 Intake Total 320 ml Output Total 215 ml Balance 105 ml IV Total 70 ml Tube Feeding 200 ml Other 50 ml Output Urine Total 215 ml Laboratory Tests 10/12/17 05:25: White Blood Count 12.8H, Red Blood Count 6.47H, Hemoglobin 11.9L, Hematocrit 43.1, Mean Corpuscular Volume 67L, Mean Corpuscular Hemoglobin 18.4L, Mean Corpuscular Hemoglobin Concent 27.6L, Red Cell Distribution Width 20.3H, Platelet Count 62L, Mean Platelet Volume 8.1, Neutrophils (%) (Auto) , Lymphocytes (%) (Auto) , Monocytes (%) (Auto) , Eosinophils (%) (Auto) , Basophils (%) (Auto) , Sodium Level 149H, Potassium Level 4.0, Chloride Level 110H, Carbon Dioxide Level 37H, Anion Gap 2L, Blood Urea Nitrogen 32H, Creatinine 2.7H, Estimat Glomerular Filtration Rate 26.3, Glucose Level 115H, Uric Acid 8.1H, Calcium Level 8.3L, Phosphorus Level 6.0H, Magnesium Level 2.2, Total Bilirubin 1.2H, Direct Bilirubin 0.5H, Gamma Glutamyl Transpeptidase 20, Aspartate Amino Transf (AST/SGOT) 30, Alanine Aminotransferase (ALT/SGPT) 12, Alkaline Phosphatase 47, Total Creatine Kinase 92, C-Reactive Protein, Quantitative 33.5H, Pro-B-Type Natriuretic Peptide 5231H, Total Protein 7.1, Albumin 1.8L, Globulin 5.3, Albumin/Globulin Ratio 0.3L, Vancomycin Level Trough 9.2 10/12/17 09:24: Arterial Blood pH 7.280L, Arterial Blood Partial Pressure CO2 88.8*H, Arterial Blood Partial Pressure O2 64.9L, Arterial Blood HCO3 40.9H, Arterial Blood Oxygen Saturation 90.7L, Arterial Blood Base Excess 10.5, Naif Test Positive Height (Feet): 5 Height (Inches): 4.00 Weight (Pounds): 356 General Appearance: other - limited eval , as patient is sedated and intubated EENT: other - limited eval , as patient is sedated and intubated Cardiovascular: normal rate Respiratory/Chest: rhonchi - bilaterally, rhonchi - left, rhonchi - right Abdomen: soft Genitourinary/Rectal: other - diffuse edema with psoriatic plaques Extremities: other - limited eval , as patient is sedated and intubated Neurologic: other - limited eval , as patient is sedated and intubated Nery Combs MD Oct 12, 2017 13:00
--- NOTE | 2017-10-12 15:03 | Infectious Diseases Prog Note ---
Assessment/Plan Assessment/Plan ASSESSMENT: The patient is a 42-year-old male with, Fever Possible aspiration pneumonia versus community-acquired pneumonia. Scx : P mirabilis 10/09 Xray worsening left basilar infiltrates versus edema Probable scrotal cellulitis versus discoloration of genitalia due to edema. Ventilator-dependent respiratory failure. Bacteremia, CORA PICC 10/09 VDRF Congestive heart failure. PLAN: Cont pt on vancomycin and Zosyn and Doxy d# 5 Monitor CBC. Monitor BMP. Monitor cultures (blood, urine) Continue vent support. Monitor chest x-ray Subjective Allergies: Coded Allergies: No Known Allergies (Unverified , 10/06/17) Subjective on Vent FIO2 100 Objective Vital Signs Last 24 Hour Vital Signs Date Time Temp Pulse Resp B/P (MAP) Pulse Ox O2 Delivery O2 Flow Rate FiO2 10/12/17 14:00 98.2 82 20 109/63 96 Mechanical Ventilator 100 10/12/17 14:00 20 10/12/17 13:30 80 20 109/63 96 Mechanical Ventilator 100 10/12/17 13:00 20 10/12/17 13:00 79 20 108/63 96 Mechanical Ventilator 100 10/12/17 12:47 84 20 100 10/12/17 12:30 84 20 107/59 96 Mechanical Ventilator 100 10/12/17 12:00 99.4 92 20 116/67 96 Mechanical Ventilator 100 10/12/17 12:00 99 10/12/17 12:00 99.5 10/12/17 12:00 20 10/12/17 11:30 97 20 126/75 97 Mechanical Ventilator 100 10/12/17 11:00 20 10/12/17 11:00 100.0 97 20 129/74 97 Mechanical Ventilator 100 10/12/17 10:38 97 21 100 10/12/17 10:30 98 20 122/71 97 Mechanical Ventilator 100 10/12/17 10:21 100 10/12/17 10:00 96 18 122/70 95 Mechanical Ventilator 100 10/12/17 10:00 18 10/12/17 09:30 94 18 109/55 100 Mechanical Ventilator 100 10/12/17 09:22 86 20 100 10/12/17 09:00 93 18 115/55 100 Mechanical Ventilator 100 10/12/17 09:00 18 10/12/17 09:00 18 10/12/17 08:30 95 18 108/63 98 Mechanical Ventilator 100 10/12/17 08:29 18 10/12/17 08:00 98.2 90 18 104/62 91 Mechanical Ventilator 100 10/12/17 08:00 18 10/12/17 08:00 18 10/12/17 08:00 90 10/12/17 08:00 100 10/12/17 07:42 91 18 100 10/12/17 07:30 90 18 105/60 87 Mechanical Ventilator 100 10/12/17 07:00 20 10/12/17 07:00 20 10/12/17 07:00 88 18 105/58 79 Mechanical Ventilator 100 10/12/17 06:30 91 18 97/65 79 Mechanical Ventilator 100 10/12/17 06:00 18 10/12/17 06:00 25 10/12/17 06:00 91 18 109/58 88 Mechanical Ventilator 100 10/12/17 05:30 92 18 116/66 91 Mechanical Ventilator 100 10/12/17 05:00 78 18 116/68 90 Mechanical Ventilator 100 10/12/17 05:00 20 10/12/17 05:00 21 10/12/17 04:35 76 18 100 10/12/17 04:30 74 18 118/68 90 Mechanical Ventilator 100 10/12/17 04:00 100 10/12/17 04:00 73 10/12/17 04:00 24 10/12/17 04:00 17 10/12/17 04:00 97.9 74 18 117/70 90 Mechanical Ventilator 100 10/12/17 03:30 73 18 106/64 89 Mechanical Ventilator 100 10/12/17 03:07 73 18 100 10/12/17 03:00 23 10/12/17 03:00 24 10/12/17 03:00 73 18 105/68 89 Mechanical Ventilator 100 10/12/17 02:30 75 17 108/65 88 Mechanical Ventilator 100 10/12/17 02:00 76 17 113/66 88 Mechanical Ventilator 100 10/12/17 02:00 22 10/12/17 02:00 10/12/17 01:30 79 17 111/67 88 Mechanical Ventilator 100 10/12/17 01:00 22 10/12/17 01:00 22 10/12/17 01:00 82 18 113/64 87 Mechanical Ventilator 100 10/12/17 00:52 82 18 100 10/12/17 00:30 82 18 115/67 91 Mechanical Ventilator 100 10/12/17 00:24 18 10/12/17 00:00 24 10/12/17 00:00 24 10/12/17 00:00 99.3 91 22 119/81 89 Mechanical Ventilator 100 10/12/17 00:00 100 10/12/17 00:00 91 10/11/17 23:30 87 22 119/64 88 Mechanical Ventilator 100 10/11/17 23:00 85 22 117/64 88 Mechanical Ventilator 100 10/11/17 23:00 24 10/11/17 22:54 87 19 100 10/11/17 22:30 89 22 128/69 88 Mechanical Ventilator 100 10/11/17 22:00 95 22 86/42 88 Mechanical Ventilator 100 10/11/17 22:00 24 10/11/17 21:30 89 22 126/67 92 Mechanical Ventilator 100 10/11/17 21:13 95 22 100 10/11/17 21:00 95 24 116/71 93 Mechanical Ventilator 100 10/11/17 21:00 24 10/11/17 20:30 95 24 116/71 93 Mechanical Ventilator 100 10/11/17 20:15 101.6 94 24 122/65 93 Mechanical Ventilator 100 10/11/17 20:12 98 24 100 10/11/17 20:00 100 10/11/17 20:00 97 10/11/17 19:00 102.2 98 24 121/56 100 Mechanical Ventilator 100 10/11/17 18:17 106 27 100 10/11/17 18:00 102.6 108 24 121/58 90 Mechanical Ventilator 100 10/11/17 17:21 100.9 10/11/17 17:00 100.9 105 24 148/72 91 Mechanical Ventilator 100 10/11/17 16:51 26 10/11/17 16:00 100 10/11/17 16:00 102.1 98 23 114/58 92 Mechanical Ventilator 100 10/11/17 16:00 90 10/11/17 15:47 90 23 100 Height (Feet): 5 Height (Inches): 4.00 Weight (Pounds): 356 HEENT: anicteric Respiratory/Chest: no respiratory distress Cardiovascular: no gallop/murmur Abdomen: non distended Microbiology Date/Time Source Procedure Growth Status 10/11/17 17:00 Sputum Gram Stain - Final Resulted 10/11/17 17:00 Sputum Sputum Culture Pending Resulted Laboratory Tests Test 10/12/17 05:25 10/12/17 09:24 White Blood Count 12.8 K/UL (4.8-10.8) H Red Blood Count 6.47 M/UL (4.70-6.10) H Hemoglobin 11.9 G/DL (14.2-18.0) L Hematocrit 43.1 % (42.0-52.0) Mean Corpuscular Volume 67 FL (80-99) L Mean Corpuscular Hemoglobin 18.4 PG (27.0-31.0) L Mean Corpuscular Hemoglobin Concent 27.6 G/DL (32.0-36.0) L Red Cell Distribution Width 20.3 % (11.6-14.8) H Platelet Count 62 K/UL (150-450) L Mean Platelet Volume 8.1 FL (6.5-10.1) Neutrophils (%) (Auto) % (45.0-75.0) Lymphocytes (%) (Auto) % (20.0-45.0) Monocytes (%) (Auto) % (1.0-10.0) Eosinophils (%) (Auto) % (0.0-3.0) Basophils (%) (Auto) % (0.0-2.0) Sodium Level 149 MMOL/L (136-145) H Potassium Level 4.0 MMOL/L (3.5-5.1) Chloride Level 110 MMOL/L (98-107) H Carbon Dioxide Level 37 MMOL/L (21-32) H Anion Gap 2 mmol/L (5-15) L Blood Urea Nitrogen 32 mg/dL (7-18) H Creatinine 2.7 MG/DL (0.55-1.30) H Estimat Glomerular Filtration Rate 26.3 mL/min (>60) Glucose Level 115 MG/DL (74-106) H Uric Acid 8.1 MG/DL (2.6-7.2) H Calcium Level 8.3 MG/DL (8.5-10.1) L Phosphorus Level 6.0 MG/DL (2.5-4.9) H Magnesium Level 2.2 MG/DL (1.8-2.4) Total Bilirubin 1.2 MG/DL (0.2-1.0) H Direct Bilirubin 0.5 MG/DL (0.0-0.3) H Gamma Glutamyl Transpeptidase 20 U/L (5-85) Aspartate Amino Transf (AST/SGOT) 30 U/L (15-37) Alanine Aminotransferase (ALT/SGPT) 12 U/L (12-78) Alkaline Phosphatase 47 U/L (46-116) Total Creatine Kinase 92 U/L (26-308) C-Reactive Protein, Quantitative 33.5 mg/dL (0.00-0.90) H Pro-B-Type Natriuretic Peptide 5231 pg/mL (0-125) H Total Protein 7.1 G/DL (6.4-8.2) Albumin 1.8 G/DL (3.4-5.0) L Globulin 5.3 g/dL Albumin/Globulin Ratio 0.3 (1.0-2.7) L Vancomycin Level Trough 9.2 ug/mL (5.0-12.0) Arterial Blood pH 7.280 (7.350-7.450) Arterial Blood Partial Pressure CO2 88.8 mmHg (35.0-45.0) *H Arterial Blood Partial Pressure O2 64.9 mmHg (75.0-100.0) L Arterial Blood HCO3 40.9 mmol/L (22.0-26.0) H Arterial Blood Oxygen Saturation 90.7 % (92.0-98.0) L Arterial Blood Base Excess 10.5 Naif Test Positive Current Medications Medications (Trade) Dose Ordered Sig/Prince Route PRN Reason Start Time Stop Time Status Last Admin Dose Admin Acetaminophen (Tylenol) 650 mg EVERY 4 HOURS PRN NG Mild Pain/Temp > 100.5 10/09/17 10:15 11/08/17 10:14 10/12/17 11:30 Chlorhexidine Gluconate (Sol-Hex 2%) 1 applic DAILY@1999 TOPIC 10/09/17 20:00 11/08/17 19:59 10/11/17 20:48 Dextrose (Dextrose 50%) STAT PRN IV Hypoglycemia 10/12/17 11:00 11/11/17 10:59 Doxycycline Monohydrate (Vibramycin) 100 mg Q12HR@0600,1800 GT 10/08/17 16:30 10/15/17 16:29 10/12/17 06:08 Fentanyl Citrate 1000 mcg/Sodium Chloride 100 ml @ 0 mls/hr Q24H IV 10/07/17 19:00 10/14/17 18:59 10/12/17 08:29 Haloperidol Lactate 5 mg/ Dextrose 56 ml @ 224 mls/hr Q1H PRN IVPB BREAKTHROUGH AGITATION 10/08/17 17:00 11/07/17 16:59 10/09/17 07:12 Heparin Sodium (Porcine) (Heparin 5000 units/ml) 5,000 units DAILY SUBQ 10/08/17 11:00 11/07/17 10:59 10/08/17 11:13 Insulin Aspart (NovoLOG) BEFORE MEALS AND HS SUBQ 10/12/17 11:30 11/11/17 11:29 Lorazepam (Ativan 2mg/ml 1ml) 2 mg Q4H PRN IV For Anxiety 10/07/17 11:00 10/14/17 10:59 10/12/17 00:09 Midazolam HCl 100 ml @ 0 mls/hr Q24H IVPB 10/07/17 18:30 10/14/17 18:29 10/12/17 00:24 Morphine Sulfate (Morphine Sulfate) 4 mg Q4H PRN IVP For Pain 10/07/17 11:00 10/14/17 10:59 Pantoprazole (Protonix) 40 mg DAILY IV 10/07/17 11:00 11/06/17 10:59 10/12/17 09:31 Piperacillin Sod/ Tazobactam Sod 3.375 gm/Dextrose 55 ml @ 13.75 mls/ hr Q12H IVPB 10/12/17 20:00 10/19/17 19:59 Vancomycin HCl (Vanco rx to dose) 1 ea DAILY PRN MISC PER RX PROTOCOL 10/07/17 11:00 11/06/17 10:59 CATALINA PARRA M.D. Oct 12, 2017 15:03
--- NOTE | 2017-10-12 16:34 | Nephrology Progress Note ---
Assessment/Plan Problem List: (1) Acute respiratory failure (2) Acute renal failure Assessment: with previous urinary out let obstruction Assessment Acute renal failure- rising Cr 2.7 Acute Respiratory distress , ? aspiration pneumonia, intubated Acute Pulmonary edema Anasarca scotal cellutis Morbid obesity. Thrombocytopenia. Abnormal blood sugar. Anemia. Plan Plan: 500 cc bolous K and Mag supplement Keep BP in check pulm support avoid nephrotoxics monitor renal parameters per consultants per orders Left ventricular ejection fraction estimated to be grossly normal. Mild left ventricular hypertrophy. Subjective ROS Limited/Unobtainable: Yes Objective Objective Last 24 Hour Vital Signs Date Time Temp Pulse Resp B/P (MAP) Pulse Ox O2 Delivery O2 Flow Rate FiO2 10/12/17 15:05 81 20 100 10/12/17 15:00 82 20 117/70 92 Mechanical Ventilator 100 10/12/17 15:00 20 10/12/17 14:30 81 20 113/65 94 Mechanical Ventilator 100 10/12/17 14:00 98.2 82 20 109/63 96 Mechanical Ventilator 100 10/12/17 14:00 20 10/12/17 13:30 80 20 109/63 96 Mechanical Ventilator 100 10/12/17 13:00 20 10/12/17 13:00 79 20 108/63 96 Mechanical Ventilator 100 10/12/17 12:47 84 20 100 10/12/17 12:30 84 20 107/59 96 Mechanical Ventilator 100 10/12/17 12:00 99.4 92 20 116/67 96 Mechanical Ventilator 100 10/12/17 12:00 99 10/12/17 12:00 99.5 10/12/17 12:00 20 10/12/17 11:30 97 20 126/75 97 Mechanical Ventilator 100 10/12/17 11:00 20 10/12/17 11:00 100.0 97 20 129/74 97 Mechanical Ventilator 100 10/12/17 10:38 97 21 100 10/12/17 10:30 98 20 122/71 97 Mechanical Ventilator 100 10/12/17 10:21 100 10/12/17 10:00 96 18 122/70 95 Mechanical Ventilator 100 10/12/17 10:00 18 10/12/17 09:30 94 18 109/55 100 Mechanical Ventilator 100 10/12/17 09:22 86 20 100 10/12/17 09:00 93 18 115/55 100 Mechanical Ventilator 100 12/15/17 09:00 18 10/12/17 09:00 18 10/12/17 08:30 95 18 108/63 98 Mechanical Ventilator 100 10/12/17 08:29 18 10/12/17 08:00 98.2 90 18 104/62 91 Mechanical Ventilator 100 10/12/17 08:00 18 10/12/17 08:00 18 10/12/17 08:00 90 10/12/17 08:00 100 10/12/17 07:42 91 18 100 10/12/17 07:30 90 18 105/60 87 Mechanical Ventilator 100 10/12/17 07:00 20 10/12/17 07:00 20 10/12/17 07:00 88 18 105/58 79 Mechanical Ventilator 100 10/12/17 06:30 91 18 97/65 79 Mechanical Ventilator 100 10/12/17 06:00 18 10/12/17 06:00 25 10/12/17 06:00 91 18 109/58 88 Mechanical Ventilator 100 10/12/17 05:30 92 18 116/66 91 Mechanical Ventilator 100 10/12/17 05:00 78 18 116/68 90 Mechanical Ventilator 100 10/12/17 05:00 20 10/12/17 05:00 21 10/12/17 04:35 76 18 100 10/12/17 04:30 74 18 118/68 90 Mechanical Ventilator 100 10/12/17 04:00 100 10/12/17 04:00 73 10/12/17 04:00 24 10/12/17 04:00 17 10/12/17 04:00 97.9 74 18 117/70 90 Mechanical Ventilator 100 10/12/17 03:30 73 18 106/64 89 Mechanical Ventilator 100 10/12/17 03:07 73 18 100 10/12/17 03:00 23 10/12/17 03:00 24 10/12/17 03:00 73 18 105/68 89 Mechanical Ventilator 100 10/12/17 02:30 75 17 108/65 88 Mechanical Ventilator 100 10/12/17 02:00 76 17 113/66 88 Mechanical Ventilator 100 10/12/17 02:00 22 10/12/17 02:00 22 10/12/17 01:30 79 17 111/67 88 Mechanical Ventilator 100 10/12/17 01:00 22 10/12/17 01:00 22 10/12/17 01:00 82 18 113/64 87 Mechanical Ventilator 100 10/12/17 00:52 82 18 100 10/12/17 00:30 82 18 115/67 91 Mechanical Ventilator 100 10/12/17 00:24 18 10/12/17 00:00 24 10/12/17 00:00 24 10/12/17 00:00 99.3 91 22 119/81 89 Mechanical Ventilator 100 10/12/17 00:00 100 10/12/17 00:00 91 10/11/17 23:30 87 22 119/64 88 Mechanical Ventilator 100 10/11/17 23:00 85 22 117/64 88 Mechanical Ventilator 100 10/11/17 23:00 24 10/11/17 22:54 87 19 100 10/11/17 22:30 89 22 128/69 88 Mechanical Ventilator 100 10/11/17 22:00 95 22 86/42 88 Mechanical Ventilator 100 10/11/17 22:00 24 10/11/17 21:30 89 22 126/67 92 Mechanical Ventilator 100 10/11/17 21:13 95 22 100 10/11/17 21:00 95 24 116/71 93 Mechanical Ventilator 100 10/11/17 21:00 24 10/11/17 20:30 95 24 116/71 93 Mechanical Ventilator 100 10/11/17 20:15 101.6 94 24 122/65 93 Mechanical Ventilator 100 10/11/17 20:12 98 24 100 10/11/17 20:00 100 10/11/17 20:00 97 10/11/17 19:00 102.2 98 24 121/56 100 Mechanical Ventilator 100 10/11/17 18:17 106 27 100 10/11/17 18:00 102.6 108 24 121/58 90 Mechanical Ventilator 100 10/11/17 17:21 100.9 10/11/17 17:00 100.9 105 24 148/72 91 Mechanical Ventilator 100 10/11/17 16:51 26 Intake and Output 10/12/17 10/13/17 19:00 07:00 Intake Total 420 ml Output Total 315 ml Balance 105 ml IV Total 110 ml Tube Feeding 260 ml Other 50 ml Output Urine Total 315 ml Laboratory Tests 10/12/17 05:25: White Blood Count 12.8H, Red Blood Count 6.47H, Hemoglobin 11.9L, Hematocrit 43.1, Mean Corpuscular Volume 67L, Mean Corpuscular Hemoglobin 18.4L, Mean Corpuscular Hemoglobin Concent 27.6L, Red Cell Distribution Width 20.3H, Platelet Count 62L, Mean Platelet Volume 8.1, Neutrophils (%) (Auto) , Lymphocytes (%) (Auto) , Monocytes (%) (Auto) , Eosinophils (%) (Auto) , Basophils (%) (Auto) , Sodium Level 149H, Potassium Level 4.0, Chloride Level 110H, Carbon Dioxide Level 37H, Anion Gap 2L, Blood Urea Nitrogen 32H, Creatinine 2.7H, Estimat Glomerular Filtration Rate 26.3, Glucose Level 115H, Uric Acid 8.1H, Calcium Level 8.3L, Phosphorus Level 6.0H, Magnesium Level 2.2, Total Bilirubin 1.2H, Direct Bilirubin 0.5H, Gamma Glutamyl Transpeptidase 20, Aspartate Amino Transf (AST/SGOT) 30, Alanine Aminotransferase (ALT/SGPT) 12, Alkaline Phosphatase 47, Total Creatine Kinase 92, C-Reactive Protein, Quantitative 33.5H, Pro-B-Type Natriuretic Peptide 5231H, Total Protein 7.1, Albumin 1.8L, Globulin 5.3, Albumin/Globulin Ratio 0.3L, Vancomycin Level Trough 9.2 10/12/17 09:24: Arterial Blood pH 7.280L, Arterial Blood Partial Pressure CO2 88.8*H, Arterial Blood Partial Pressure O2 64.9L, Arterial Blood HCO3 40.9H, Arterial Blood Oxygen Saturation 90.7L, Arterial Blood Base Excess 10.5, Naif Test Positive Height (Feet): 5 Height (Inches): 4.00 Weight (Pounds): 356 General Appearance: no apparent distress, lethargic Cardiovascular: normal rate Respiratory/Chest: decreased breath sounds Abdomen: distended Objective no other change JAY YANCEY Oct 12, 2017 16:34
[2017-10-12] MEDS: Dyna-Hex 2% Top Sol 2oz TOPIC SCH (19:46)
[2017-10-13] VITALS (48 sets, daily range): BP systolic 95–122; BP diastolic 20–85
[2017-10-13] MEDS: Acetaminophen 650mg/20.3ml NG PRN ×2 (01:46→09:48)
[2017-10-13] MEDS: Midazolam/D5W 100ml 100 ML IVPB SCH (04:40)
[2017-10-13] MEDS: NovoLOG Insulin Flexpen SUBQ SCH ×4 (06:03→20:35)
[2017-10-13 06:36] LABS: HEMATOCRIT 44.1 % (42.0-52.0); HEMOGLOBIN 12.3 G/DL (14.2-18.0); MEAN CORPUSCULAR VOLUME 67 FL (80-99); PLATELET COUNT 80 K/UL (150-450); RED BLOOD COUNT 6.58 M/UL (4.70-6.10); RED CELL DISTRIBUTION WIDTH 20.8 % (11.6-14.8); WHITE BLOOD COUNT 11.1 K/UL (4.8-10.8)
[2017-10-13 06:48] LABS: ANION GAP 1 mmol/L (5-15); BLOOD UREA NITROGEN 40 mg/dL (7-18); CALCIUM 8.6 MG/DL (8.5-10.1); CARBON DIOXIDE 38 MMOL/L (21-32); CHLORIDE 110 MMOL/L (98-107); CREATININE 2.6 MG/DL (0.55-1.30); POTASSIUM 4.2 MMOL/L (3.5-5.1); SODIUM 149 MMOL/L (136-145)
[2017-10-13 06:52] LABS: ALANINE AMINOTRANSFERASE 10 U/L (12-78); ALBUMIN 1.8 G/DL (3.4-5.0); ALKALINE PHOSPHATASE 59 U/L (46-116); ASPARTATE AMINO TRANSFERASE 29 U/L (15-37); BILIRUBIN,DIRECT 0.3 MG/DL (0.0-0.3); BILIRUBIN,TOTAL 0.7 MG/DL (0.2-1.0); PHOSPHORUS 5.2 MG/DL (2.5-4.9)
--- NOTE | 2017-10-13 07:45 | Pulmonolgy Critical Care Note ---
Critical Care - Asmt/Plan Assessment/Plan: ASSESSMENT Acute hypercapnic hypoxemic RF requiring intubation likely aspiration PNA with Proteus possible HCAP with Proteus acute pulmonary edema possible ARDS Probably scrotal cellulitis Urinary retention-relieved ARF likely ATN Thrombocytopenia psoriasis morbid obesity new onset of diabetes PLAN OF CARE ICU Vent support pulmonary toilet daily CXR ABG ABG this am with worsening hypercapnia, further increase AC rate nearly on max settings: AC -22, PEEP-16, FiO2 100% start steroids for likely ARDS abx ID follows sputum cx + Proteus, repeated sputum cx + GNB, urine cx negative, blood cx prel negative nephro follows renal parameters without improvement initial renal US with 1500cc urinary retention Carrington placed by urologist scrotal US pending elevate scrotum Venous Duplex BLE -negative monitor renal parameters, lytes avoid nephrotoxic ECHO with grossly preserved EF, normal wall motion to the extent visualized Pain management DVT/GI prophylaxis Monitor counts [id number] new onset of DM, SS of insulin condition serious, prognosis grim discussed in detail with mother at the bedside 10/12 case discussed and evaluated by supervising physician Critical Care - Objective Last 24 Hour Vital Signs Date Time Temp Pulse Resp B/P (MAP) Pulse Ox O2 Delivery O2 Flow Rate FiO2 10/13/17 07:00 90 20 111/70 94 Mechanical Ventilator 100 10/13/17 07:00 20 10/13/17 07:00 20 10/13/17 06:55 92 16 100 10/13/17 06:30 85 20 106/64 94 Mechanical Ventilator 100 10/13/17 06:00 20 10/13/17 06:00 20 10/13/17 06:00 98.7 82 20 103/63 92 Mechanical Ventilator 100 10/13/17 05:30 83 20 98/54 91 Mechanical Ventilator 100 10/13/17 05:18 81 21 100 10/13/17 05:00 83 20 96/51 90 Mechanical Ventilator 100 10/13/17 05:00 21 10/13/17 05:00 21 10/13/17 04:40 20 10/13/17 04:30 88 21 104/61 91 Mechanical Ventilator 100 10/13/17 04:00 21 10/13/17 04:00 21 10/13/17 04:00 100.1 95 21 112/64 91 Mechanical Ventilator 100 10/13/17 04:00 100 10/13/17 03:56 94 10/13/17 03:30 87 21 97/59 92 Mechanical Ventilator 100 10/13/17 03:00 22 10/13/17 03:00 22 10/13/17 03:00 95 22 103/56 92 Mechanical Ventilator 100 10/13/17 02:55 94 24 100 10/13/17 02:30 96 21 108/62 92 Mechanical Ventilator 100 10/13/17 02:00 97 21 113/85 92 Mechanical Ventilator 100 10/13/17 02:00 21 10/13/17 02:00 21 10/13/17 01:30 92 21 105/62 92 Mechanical Ventilator 100 10/13/17 01:12 95 21 100 10/13/17 01:00 91 21 98/59 92 Mechanical Ventilator 100 10/13/17 01:00 20 10/13/17 01:00 20 10/13/17 00:49 91 10/13/17 00:30 90 20 107/62 92 Mechanical Ventilator 100 10/13/17 00:00 99.7 88 20 100/54 92 Mechanical Ventilator 100 10/13/17 00:00 20 10/13/17 00:00 20 10/13/17 00:00 100 10/12/17 23:30 89 20 101/56 91 Mechanical Ventilator 100 10/12/17 23:00 89 22 99/59 92 Mechanical Ventilator 100 10/12/17 23:00 22 10/12/17 23:00 22 10/12/17 22:44 88 20 100 10/12/17 22:30 88 20 104/54 92 Mechanical Ventilator 100 10/12/17 22:00 20 10/12/17 22:00 20 10/12/17 22:00 92 20 100/50 91 Mechanical Ventilator 100 10/12/17 21:38 21 10/12/17 21:30 89 20 100/59 92 Mechanical Ventilator 100 10/12/17 21:15 90 20 100/57 91 Mechanical Ventilator 100 10/12/17 21:05 91 20 100 10/12/17 21:00 20 10/12/17 21:00 20 10/12/17 21:00 91 20 104/58 92 Mechanical Ventilator 100 10/12/17 20:45 93 21 107/61 91 Mechanical Ventilator 100 10/12/17 20:45 21 10/12/17 20:30 94 21 112/65 90 Mechanical Ventilator 100 10/12/17 20:30 21 10/12/17 20:15 91 20 111/63 91 Mechanical Ventilator 100 10/12/17 20:15 20 10/12/17 20:00 100 10/12/17 20:00 20 10/12/17 20:00 98.4 90 20 105/59 91 Mechanical Ventilator 100 10/12/17 19:47 87 10/12/17 19:45 88 20 104/61 92 Mechanical Ventilator 100 10/12/17 19:30 87 20 109/66 92 Mechanical Ventilator 100 10/12/17 19:00 20 10/12/17 19:00 82 20 103/59 93 Mechanical Ventilator 100 10/12/17 18:58 81 20 100 10/12/17 18:30 80 20 106/57 94 Mechanical Ventilator 100 10/12/17 18:00 20 10/12/17 18:00 78 20 102/58 94 Mechanical Ventilator 100 10/12/17 17:30 81 20 104/56 94 Mechanical Ventilator 100 10/12/17 17:00 20 10/12/17 17:00 81 20 103/60 93 Mechanical Ventilator 100 10/12/17 16:38 79 20 100 10/12/17 16:30 80 20 100/61 93 Mechanical Ventilator 100 10/12/17 16:20 20 10/12/17 16:00 100 10/12/17 16:00 20 10/12/17 16:00 97.9 80 20 110/54 93 Mechanical Ventilator 100 10/12/17 16:00 80 10/12/17 15:30 20 10/12/17 15:30 82 20 111/66 92 Mechanical Ventilator 100 10/12/17 15:05 81 20 100 10/12/17 15:00 82 20 117/70 92 Mechanical Ventilator 100 10/12/17 15:00 20 10/12/17 14:30 81 20 113/65 94 Mechanical Ventilator 100 10/12/17 14:00 98.2 82 20 109/63 96 Mechanical Ventilator 100 10/12/17 14:00 20 10/12/17 13:30 80 20 109/63 96 Mechanical Ventilator 100 10/12/17 13:00 20 10/12/17 13:00 79 20 108/63 96 Mechanical Ventilator 100 10/12/17 12:47 84 20 100 10/12/17 12:30 84 20 107/59 96 Mechanical Ventilator 100 10/12/17 12:00 99.4 92 20 116/67 96 Mechanical Ventilator 100 10/12/17 12:00 99 10/12/17 12:00 99.5 10/12/17 12:00 20 10/12/17 11:30 97 20 126/75 97 Mechanical Ventilator 100 10/12/17 11:00 20 10/12/17 11:00 100.0 97 20 129/74 97 Mechanical Ventilator 100 10/12/17 10:38 97 21 100 10/12/17 10:30 98 20 122/71 97 Mechanical Ventilator 100 10/12/17 10:21 100 10/12/17 10:00 96 18 122/70 95 Mechanical Ventilator 100 10/12/17 10:00 18 10/12/17 09:30 94 18 109/55 100 Mechanical Ventilator 100 10/12/17 09:22 86 20 100 10/12/17 09:00 93 18 115/55 100 Mechanical Ventilator 100 10/12/17 09:00 18 10/12/17 09:00 18 10/12/17 08:30 95 18 108/63 98 Mechanical Ventilator 100 10/12/17 08:29 18 10/12/17 08:00 98.2 90 18 104/62 91 Mechanical Ventilator 100 10/12/17 08:00 18 10/12/17 08:00 18 10/12/17 08:00 90 10/12/17 08:00 100 Objective: Status: sedated, morbidly obese middle age male, intubated Condition: critical HEENT: atraumatic, normocephalic, OP with ET in place, intact, NGT Lungs: scattered rhonchi at bases Heart: HR/BP stable, RUE PICC intact Abdomen: soft - obese , active bowel sounds Extremities: no C/C/ + trace to +1 edema BLE Micro: Microbiology Date/Time Source Procedure Growth Status 10/11/17 17:00 Sputum Gram Stain - Final Resulted 10/11/17 17:00 Sputum Sputum Culture Pending Resulted Accucheck: 94 Critical Care - Subjective ROS Limited/Unobtainable: Yes Interval Events: still with leucocytosis ABG worse , with severe hypercapnia on PEEP 16 and AC 20 with FiO2 100% Condition: critical, grave IV Access: PICC - RUE intact EKG Rhythm: Sinus Rhythm FI02: 100 Vent Support Breath Rate: 20 Vent Support Mode: AC Vent Tidal Volume: 550 Sputum Amount: Small PEEP: 16.0 PIP: 44 Drips: Fentanyl at 70 mcg/hr, versed at 4 mcg/hr Tube Feeding Amount: 30 CXR: CXR 10/13 Extensive bilateral airspace opacities with interval worsening of aeration in the left lung compared to one day prior. ET-Tube: 7.5 ET Position: 25 Rambo ([place]),Kalee ROBERTS Oct 13, 2017 07:45
[2017-10-13] MEDS: Pantoprazole Inj IV SCH (08:45)
[2017-10-13] MEDS: Heparin 5000 units/ml inj SUBQ SCH (08:45)
[2017-10-13] MEDS: Piperacillin/Tazobactam 3.375 GM in D5W 55 ML IVPB SCH (08:45)
--- NOTE | 2017-10-13 09:47 | Nephrology Progress Note ---
Assessment/Plan Problem List: (1) Acute respiratory failure (2) Acute renal failure Assessment: with previous urinary out let obstruction Assessment Acute renal failure- Cr unchanged today Acute Respiratory distress , ? aspiration pneumonia, intubated Acute Pulmonary edema Anasarca scotal cellutis Morbid obesity. Thrombocytopenia. Abnormal blood sugar. Anemia. Plan Plan: trial steroids K and Mag supplement as needed Keep BP in check pulm support avoid nephrotoxics monitor renal parameters per consultants per orders Left ventricular ejection fraction estimated to be grossly normal. Mild left ventricular hypertrophy. Subjective ROS Limited/Unobtainable: Yes Objective Objective Last 24 Hour Vital Signs Date Time Temp Pulse Resp B/P (MAP) Pulse Ox O2 Delivery O2 Flow Rate FiO2 10/13/17 09:12 115 25 100 10/13/17 09:00 100 10/13/17 08:00 105 10/13/17 08:00 20 10/13/17 08:00 99.0 105 20 110/70 95 Mechanical Ventilator 100 10/13/17 08:00 100 10/13/17 07:30 96 20 108/72 94 Mechanical Ventilator 100 10/13/17 07:00 90 20 111/70 94 Mechanical Ventilator 100 10/13/17 07:00 20 10/13/17 07:00 20 10/13/17 06:55 92 16 100 10/13/17 06:30 85 20 106/64 94 Mechanical Ventilator 100 10/13/17 06:00 20 10/13/17 06:00 20 10/13/17 06:00 98.7 82 20 103/63 92 Mechanical Ventilator 100 10/13/17 05:30 83 20 98/54 91 Mechanical Ventilator 100 10/13/17 05:18 81 21 100 10/13/17 05:00 83 20 96/51 90 Mechanical Ventilator 100 10/13/17 05:00 21 10/13/17 05:00 21 10/13/17 04:40 20 10/13/17 04:30 88 21 104/61 91 Mechanical Ventilator 100 10/13/17 04:00 21 10/13/17 04:00 21 10/13/17 04:00 100.1 95 21 112/64 91 Mechanical Ventilator 100 10/13/17 04:00 100 10/13/17 03:56 94 10/13/17 03:30 87 21 97/59 92 Mechanical Ventilator 100 10/13/17 03:00 22 10/13/17 03:00 22 10/13/17 03:00 95 22 103/56 92 Mechanical Ventilator 100 10/13/17 02:55 94 24 100 10/13/17 02:30 96 21 108/62 92 Mechanical Ventilator 100 10/13/17 02:00 97 21 113/85 92 Mechanical Ventilator 100 10/13/17 02:00 21 10/13/17 02:00 21 10/13/17 01:30 92 21 105/62 92 Mechanical Ventilator 100 10/13/17 01:12 95 21 100 10/13/17 01:00 91 21 98/59 92 Mechanical Ventilator 100 10/13/17 01:00 20 10/13/17 01:00 20 10/13/17 00:49 91 10/13/17 00:30 90 20 107/62 92 Mechanical Ventilator 100 10/13/17 00:00 99.7 88 20 100/54 92 Mechanical Ventilator 100 10/13/17 00:00 20 10/13/17 00:00 20 10/13/17 00:00 100 10/12/17 23:30 89 20 101/56 91 Mechanical Ventilator 100 10/12/17 23:00 89 22 99/59 92 Mechanical Ventilator 100 10/12/17 23:00 22 10/12/17 23:00 22 10/12/17 22:44 88 20 100 10/12/17 22:30 88 20 104/54 92 Mechanical Ventilator 100 10/12/17 22:00 20 10/12/17 22:00 20 10/12/17 22:00 92 20 100/50 91 Mechanical Ventilator 100 10/12/17 21:38 21 10/12/17 21:30 89 20 100/59 92 Mechanical Ventilator 100 10/12/17 21:15 90 20 100/57 91 Mechanical Ventilator 100 10/12/17 21:05 91 20 100 10/12/17 21:00 20 10/12/17 21:00 20 10/12/17 21:00 91 20 104/58 92 Mechanical Ventilator 100 10/12/17 20:45 93 21 107/61 91 Mechanical Ventilator 100 10/12/17 20:45 21 10/12/17 20:30 94 21 112/65 90 Mechanical Ventilator 100 10/12/17 20:30 21 10/12/17 20:15 91 20 111/63 91 Mechanical Ventilator 100 10/12/17 20:15 20 10/12/17 20:00 100 10/12/17 20:00 20 10/12/17 20:00 98.4 90 20 105/59 91 Mechanical Ventilator 100 10/12/17 19:47 87 10/12/17 19:45 88 20 104/61 92 Mechanical Ventilator 100 10/12/17 19:30 87 20 109/66 92 Mechanical Ventilator 100 10/12/17 19:00 20 10/12/17 19:00 82 20 103/59 93 Mechanical Ventilator 100 10/12/17 18:58 81 20 100 10/12/17 18:30 80 20 106/57 94 Mechanical Ventilator 100 10/12/17 18:00 20 10/12/17 18:00 78 20 102/58 94 Mechanical Ventilator 100 10/12/17 17:30 81 20 104/56 94 Mechanical Ventilator 100 10/12/17 17:00 20 10/12/17 17:00 81 20 103/60 93 Mechanical Ventilator 100 10/12/17 16:38 79 20 100 10/12/17 16:30 80 20 100/61 93 Mechanical Ventilator 100 10/12/17 16:20 20 10/12/17 16:00 100 10/12/17 16:00 20 10/12/17 16:00 97.9 80 20 110/54 93 Mechanical Ventilator 100 10/12/17 16:00 80 10/12/17 15:30 20 10/12/17 15:30 82 20 111/66 92 Mechanical Ventilator 100 10/12/17 15:05 81 20 100 10/12/17 15:00 82 20 117/70 92 Mechanical Ventilator 100 10/12/17 15:00 20 10/12/17 14:30 81 20 113/65 94 Mechanical Ventilator 100 10/12/17 14:00 98.2 82 20 109/63 96 Mechanical Ventilator 100 10/12/17 14:00 20 10/12/17 13:30 80 20 109/63 96 Mechanical Ventilator 100 10/12/17 13:00 20 10/12/17 13:00 79 20 108/63 96 Mechanical Ventilator 100 10/12/17 12:47 84 20 100 10/12/17 12:30 84 20 107/59 96 Mechanical Ventilator 100 10/12/17 12:00 99.4 92 20 116/67 96 Mechanical Ventilator 100 10/12/17 12:00 99 10/12/17 12:00 99.5 10/12/17 12:00 20 10/12/17 11:30 97 20 126/75 97 Mechanical Ventilator 100 10/12/17 11:00 20 10/12/17 11:00 100.0 97 20 129/74 97 Mechanical Ventilator 100 10/12/17 10:38 97 21 100 10/12/17 10:30 98 20 122/71 97 Mechanical Ventilator 100 10/12/17 10:21 100 10/12/17 10:00 96 18 122/70 95 Mechanical Ventilator 100 10/12/17 10:00 18 Intake and Output 10/13/17 10/14/17 19:00 07:00 Intake Total 51.5 ml Output Total 50 ml Balance 1.5 ml IV Total 21.5 ml Tube Feeding 30 ml Output Urine Total 50 ml Laboratory Tests 10/13/17 05:50: White Blood Count 11.1H, Red Blood Count 6.58H, Hemoglobin 12.3L, Hematocrit 44.1, Mean Corpuscular Volume 67L, Mean Corpuscular Hemoglobin 18.7L, Mean Corpuscular Hemoglobin Concent 27.9L, Red Cell Distribution Width 20.8H, Platelet Count 80L, Mean Platelet Volume 10.3H, Neutrophils (%) (Auto) , Lymphocytes (%) (Auto) , Monocytes (%) (Auto) , Eosinophils (%) (Auto) , Basophils (%) (Auto) , Neutrophils % (Manual) [Pending], Lymphocytes % (Manual) [Pending], Platelet Estimate [Pending], Platelet Morphology [Pending], Sodium Level 149H, Potassium Level 4.2, Chloride Level 110H, Carbon Dioxide Level 38H, Anion Gap 1L, Blood Urea Nitrogen 40H, Creatinine 2.6H, Estimat Glomerular Filtration Rate 27.5, Glucose Level 99, Calcium Level 8.6, Phosphorus Level 5.2H , Magnesium Level 2.5H, Total Bilirubin 0.7, Direct Bilirubin 0.3, Aspartate Amino Transf (AST/SGOT) 29, Alanine Aminotransferase (ALT/SGPT) 10L, Alkaline Phosphatase 59, Total Protein 7.2, Albumin 1.8L 10/13/17 08:42: Arterial Blood pH 7.227*L, Arterial Blood Partial Pressure CO2 101.5*H, Arterial Blood Partial Pressure O2 60.3L, Arterial Blood HCO3 41.2H, Arterial Blood Oxygen Saturation 86.7L, Arterial Blood Base Excess 9.1, Naif Test Positive Height (Feet): 5 Height (Inches): 4.00 Weight (Pounds): 356 General Appearance: no apparent distress Cardiovascular: tachycardia Respiratory/Chest: decreased breath sounds Abdomen: distended Objective no other change JAY YANCEY Oct 13, 2017 09:47
[2017-10-13] MEDS ORDERED: Hydrocortisone 100mg Inj IV ONE (10:30)
--- NOTE | 2017-10-13 12:16 | Diagnostic Imaging Report ---
Indication: Shortness of breath Technique: XRAY Chest 1v Comparison: 10/12/2017 Findings: ET tube, NG tube and PICC line unchanged in position. Heart size and mediastinal contours are stable. There is extensive bilateral confluent airspace opacities with worsening of aeration compared to the prior exam, particularly in the left lung. There is no pneumothorax. Osseous structures are stable. Impression: Extensive bilateral airspace opacities with interval worsening of aeration in the left lung compared to one day prior.
--- NOTE | 2017-10-13 13:41 | Infectious Diseases Prog Note ---
Assessment/Plan Assessment/Plan ASSESSMENT: The patient is a 42-year-old male with, Leukocytosis improving Fever low grade Possible aspiration pneumonia versus community-acquired pneumonia. Scx : P mirabilis , repeat Scx : GNR 10/13 C-Xray worsening of infiltrate vs edema Probable scrotal cellulitis versus discoloration of genitalia due to edema. CORA PICC 10/09 VDRF Congestive heart failure. PLAN: Cont pt on vancomycin and Doxy d# 6 / 10 , add Merrem d# 1 ( pt is getting worse ) , DC Zosyn d# 5 Monitor CBC. Monitor BMP. Monitor cultures ( SP) Continue vent support. Monitor chest x-ray Subjective Allergies: Coded Allergies: No Known Allergies (Unverified , 10/06/17) Subjective on Vent FIO2 100 Objective Vital Signs Last 24 Hour Vital Signs Date Time Temp Pulse Resp B/P (MAP) Pulse Ox O2 Delivery O2 Flow Rate FiO2 10/13/17 13:00 84 21 108/58 95 Mechanical Ventilator 100 10/13/17 12:40 101 23 100 10/13/17 12:30 100 20 115/55 90 Mechanical Ventilator 100 10/13/17 12:00 95 10/13/17 12:00 99.3 90 20 111/67 96 Mechanical Ventilator 100 10/13/17 11:30 21 10/13/17 11:30 85 20 104/63 98 Mechanical Ventilator 100 10/13/17 11:00 85 20 97/54 100 Mechanical Ventilator 100 10/13/17 11:00 21 10/13/17 10:39 88 22 100 10/13/17 10:30 89 22 99/57 100 Mechanical Ventilator 100 10/13/17 10:18 99.6 10/13/17 10:00 100.3 101 20 105/60 98 Mechanical Ventilator 100 10/13/17 09:47 24 10/13/17 09:30 110 23 115/69 96 Mechanical Ventilator 100 10/13/17 09:12 115 25 100 10/13/17 09:00 100 10/13/17 09:00 114 23 102/20 93 Mechanical Ventilator 100 10/13/17 08:30 112 20 117/70 93 Mechanical Ventilator 100 10/13/17 08:00 105 10/13/17 08:00 20 10/13/17 08:00 99.0 105 20 110/70 95 Mechanical Ventilator 100 10/13/17 08:00 100 12/16/17 07:30 96 20 108/72 94 Mechanical Ventilator 100 10/13/17 07:00 90 20 111/70 94 Mechanical Ventilator 100 10/13/17 07:00 20 10/13/17 07:00 20 10/13/17 06:55 92 16 100 10/13/17 06:30 85 20 106/64 94 Mechanical Ventilator 100 10/13/17 06:00 20 10/13/17 06:00 20 10/13/17 06:00 98.7 82 20 103/63 92 Mechanical Ventilator 100 10/13/17 05:30 83 20 98/54 91 Mechanical Ventilator 100 10/13/17 05:18 81 21 100 10/13/17 05:00 83 20 96/51 90 Mechanical Ventilator 100 10/13/17 05:00 21 10/13/17 05:00 10/13/17 04:40 20 10/13/17 04:30 88 21 104/61 91 Mechanical Ventilator 100 10/13/17 04:00 21 10/13/17 04:00 21 10/13/17 04:00 100.1 95 21 112/64 91 Mechanical Ventilator 100 10/13/17 04:00 100 10/13/17 03:56 94 10/13/17 03:30 87 21 97/59 92 Mechanical Ventilator 100 10/13/17 03:00 22 10/13/17 03:00 22 10/13/17 03:00 95 22 103/56 92 Mechanical Ventilator 100 10/13/17 02:55 94 24 100 10/13/17 02:30 96 21 108/62 92 Mechanical Ventilator 100 10/13/17 02:00 97 21 113/85 92 Mechanical Ventilator 100 10/13/17 02:00 21 10/13/17 02:00 21 10/13/17 01:30 92 21 105/62 92 Mechanical Ventilator 100 10/13/17 01:12 95 21 100 10/13/17 01:00 91 21 98/59 92 Mechanical Ventilator 100 10/13/17 01:00 20 10/13/17 01:00 20 10/13/17 00:49 91 10/13/17 00:30 90 20 107/62 92 Mechanical Ventilator 100 10/13/17 00:00 99.7 88 20 100/54 92 Mechanical Ventilator 100 10/13/17 00:00 20 10/13/17 00:00 20 10/13/17 00:00 100 10/12/17 23:30 89 20 101/56 91 Mechanical Ventilator 100 10/12/17 23:00 89 22 99/59 92 Mechanical Ventilator 100 10/12/17 23:00 22 10/12/17 23:00 22 10/12/17 22:44 88 20 100 10/12/17 22:30 88 20 104/54 92 Mechanical Ventilator 100 10/12/17 22:00 20 10/12/17 22:00 20 10/12/17 22:00 92 20 100/50 91 Mechanical Ventilator 100 10/12/17 21:38 21 10/12/17 21:30 89 20 100/59 92 Mechanical Ventilator 100 10/12/17 21:15 90 20 100/57 91 Mechanical Ventilator 100 10/12/17 21:05 91 20 100 10/12/17 21:00 20 10/12/17 21:00 20 10/12/17 21:00 91 20 104/58 92 Mechanical Ventilator 100 10/12/17 20:45 93 21 107/61 91 Mechanical Ventilator 100 10/12/17 20:45 21 10/12/17 20:30 94 21 112/65 90 Mechanical Ventilator 100 10/12/17 20:30 21 10/12/17 20:15 91 20 111/63 91 Mechanical Ventilator 100 10/12/17 20:15 20 10/12/17 20:00 100 10/12/17 20:00 20 10/12/17 20:00 98.4 90 20 105/59 91 Mechanical Ventilator 100 10/12/17 19:47 87 10/12/17 19:45 88 20 104/61 92 Mechanical Ventilator 100 10/12/17 19:30 87 20 109/66 92 Mechanical Ventilator 100 10/12/17 19:00 20 10/12/17 19:00 82 20 103/59 93 Mechanical Ventilator 100 10/12/17 18:58 81 20 100 10/12/17 18:30 80 20 106/57 94 Mechanical Ventilator 100 10/12/17 18:00 20 10/12/17 18:00 78 20 102/58 94 Mechanical Ventilator 100 10/12/17 17:30 81 20 104/56 94 Mechanical Ventilator 100 10/12/17 17:00 20 10/12/17 17:00 81 20 103/60 93 Mechanical Ventilator 100 10/12/17 16:38 79 20 100 10/12/17 16:30 80 20 100/61 93 Mechanical Ventilator 100 10/12/17 16:20 20 10/12/17 16:00 100 10/12/17 16:00 20 10/12/17 16:00 97.9 80 20 110/54 93 Mechanical Ventilator 100 10/12/17 16:00 80 10/12/17 15:30 20 10/12/17 15:30 82 20 111/66 92 Mechanical Ventilator 100 10/12/17 15:05 81 20 100 10/12/17 15:00 82 20 117/70 92 Mechanical Ventilator 100 10/12/17 15:00 20 10/12/17 14:30 81 20 113/65 94 Mechanical Ventilator 100 10/12/17 14:00 98.2 82 20 109/63 96 Mechanical Ventilator 100 10/12/17 14:00 20 Height (Feet): 5 Height (Inches): 4.00 Weight (Pounds): 356 HEENT: mucous membranes moist Respiratory/Chest: no respiratory distress Cardiovascular: regularly irregular Abdomen: no scars Microbiology Date/Time Source Procedure Growth Status 10/11/17 17:00 Sputum Gram Stain - Final Resulted 10/11/17 17:00 Sputum Culture - Preliminary Gram Negative Bacillus 1 Resulted Laboratory Tests Test 10/13/17 05:50 10/13/17 08:42 10/13/17 12:00 White Blood Count 11.1 K/UL (4.8-10.8) H Red Blood Count 6.58 M/UL (4.70-6.10) H Hemoglobin 12.3 G/DL (14.2-18.0) L Hematocrit 44.1 % (42.0-52.0) Mean Corpuscular Volume 67 FL (80-99) L Mean Corpuscular Hemoglobin 18.7 PG (27.0-31.0) L Mean Corpuscular Hemoglobin Concent 27.9 G/DL (32.0-36.0) L Red Cell Distribution Width 20.8 % (11.6-14.8) H Platelet Count 80 K/UL (150-450) L Mean Platelet Volume 10.3 FL (6.5-10.1) H Neutrophils (%) (Auto) % (45.0-75.0) Lymphocytes (%) (Auto) % (20.0-45.0) Monocytes (%) (Auto) % (1.0-10.0) Eosinophils (%) (Auto) % (0.0-3.0) Basophils (%) (Auto) % (0.0-2.0) Differential Total Cells Counted 100 Neutrophils % (Manual) 67 % (45-75) Lymphocytes % (Manual) 10 % (20-45) L Monocytes % (Manual) 6 % (1-10) Eosinophils % (Manual) 2 % (0-3) Basophils % (Manual) 0 % (0-2) Band Neutrophils 15 % (0-8) H Platelet Estimate Decreased L Platelet Morphology Normal Anisocytosis 1+ Microcytosis 1+ Sodium Level 149 MMOL/L (136-145) H Potassium Level 4.2 MMOL/L (3.5-5.1) Chloride Level 110 MMOL/L (98-107) H Carbon Dioxide Level 38 MMOL/L (21-32) H Anion Gap 1 mmol/L (5-15) L Blood Urea Nitrogen 40 mg/dL (7-18) H Creatinine 2.6 MG/DL (0.55-1.30) H Estimat Glomerular Filtration Rate 27.5 mL/min (>60) Glucose Level 99 MG/DL (74-106) Calcium Level 8.6 MG/DL (8.5-10.1) Phosphorus Level 5.2 MG/DL (2.5-4.9) H Magnesium Level 2.5 MG/DL (1.8-2.4) H Total Bilirubin 0.7 MG/DL (0.2-1.0) Direct Bilirubin 0.3 MG/DL (0.0-0.3) Aspartate Amino Transf (AST/SGOT) 29 U/L (15-37) Alanine Aminotransferase (ALT/SGPT) 10 U/L (12-78) L Alkaline Phosphatase 59 U/L (46-116) Total Protein 7.2 G/DL (6.4-8.2) Albumin 1.8 G/DL (3.4-5.0) L Arterial Blood pH 7.227 (7.350-7.450) Arterial Blood Partial Pressure CO2 101.5 mmHg (35.0-45.0) *H Arterial Blood Partial Pressure O2 60.3 mmHg (75.0-100.0) L Arterial Blood HCO3 41.2 mmol/L (22.0-26.0) H Arterial Blood Oxygen Saturation 86.7 % (92.0-98.0) L Arterial Blood Base Excess 9.1 Naif Test Positive Random Vancomycin Level Pending Current Medications Medications (Trade) Dose Ordered Sig/Prince Route PRN Reason Start Time Stop Time Status Last Admin Dose Admin Acetaminophen (Tylenol) 650 mg EVERY 4 HOURS PRN NG Mild Pain/Temp > 100.5 10/09/17 10:15 11/08/17 10:14 10/13/17 09:48 Albuterol/ Ipratropium (Albuterol/ Ipratropium) 3 ml Q4H PRN HHN Shortness of Breath 10/13/17 13:45 10/18/17 13:44 Chlorhexidine Gluconate (Sol-Hex 2%) 1 applic DAILY@1999 TOPIC 10/09/17 20:00 11/08/17 19:59 10/12/17 19:46 Dextrose (Dextrose 50%) STAT PRN IV Hypoglycemia 10/12/17 11:00 11/11/17 10:59 Doxycycline Monohydrate (Vibramycin) 100 mg Q12HR@0600,1800 GT 10/08/17 16:30 10/15/17 16:29 10/13/17 06:02 Fentanyl Citrate 1000 mcg/Sodium Chloride 100 ml @ 0 mls/hr Q24H IV 10/07/17 19:00 10/14/17 18:59 10/13/17 09:47 Haloperidol Lactate 5 mg/ Dextrose 56 ml @ 224 mls/hr Q1H PRN IVPB BREAKTHROUGH AGITATION 10/08/17 17:00 11/07/17 16:59 10/09/17 07:12 Heparin Sodium (Porcine) (Heparin 5000 units/ml) 5,000 units DAILY SUBQ 10/08/17 11:00 11/07/17 10:59 10/08/17 11:13 Hydrocortisone (Solu-CORTEF) 100 mg EVERY 8 HOURS IV 10/13/17 14:00 11/12/17 13:59 Insulin Aspart (NovoLOG) BEFORE MEALS AND HS SUBQ 10/12/17 11:30 11/11/17 11:29 Lorazepam (Ativan 2mg/ml 1ml) 2 mg Q4H PRN IV For Anxiety 10/07/17 11:00 12/17/17 10:59 10/12/17 00:09 Midazolam HCl 100 ml @ 0 mls/hr Q24H IVPB 10/07/17 18:30 10/14/17 18:29 10/13/17 04:40 Morphine Sulfate (Morphine Sulfate) 4 mg Q4H PRN IVP For Pain 10/07/17 11:00 10/14/17 10:59 Pantoprazole (Protonix) 40 mg DAILY IV 10/07/17 11:00 11/06/17 10:59 10/13/17 08:45 Piperacillin Sod/ Tazobactam Sod 3.375 gm/Dextrose 55 ml @ 13.75 mls/ hr Q12H IVPB 10/12/17 20:00 10/19/17 19:59 10/13/17 08:45 Vancomycin HCl (Vanco rx to dose) 1 ea DAILY PRN MISC PER RX PROTOCOL 10/07/17 11:00 11/06/17 10:59 CATALINA PARRA M.D. Oct 13, 2017 13:41
[2017-10-13] MEDS ORDERED: Albuterol/Ipratropium 3ml neb HHN PRN (13:45)
[2017-10-13] MEDS: Hydrocortisone 100mg Inj IV SCH ×2 (14:39→21:36)
[2017-10-13] MEDS ORDERED: Tubing IV Secondary IV ONE ×2 (16:13→16:14)
[2017-10-13] MEDS ORDERED: Sterile Water Irrig 1000ml IRRIG ONE (16:13)
[2017-10-13] MEDS ORDERED: D5W 550ml IV ONE (16:13)
[2017-10-13] MEDS ORDERED: NS 500ML ONE (16:14)
[2017-10-13] MEDS: Meropenem 1 GM in NS 55 ML IVPB SCH (16:17)
[2017-10-13] MEDS: Vancomycin 1250mg/D5W 250ml IVPB SCH (16:17)
[2017-10-13] MEDS: Milk of Magnesia 30ml Ud GT PRN (16:52)
[2017-10-13] MEDS: Docusate 100mg/10ml Liq GT SCH (16:52)
[2017-10-13] MEDS: Dyna-Hex 2% Top Sol 2oz TOPIC SCH (19:46)
[2017-10-14] VITALS (50 sets, daily range): BP systolic 94–129; BP diastolic 46–74
[2017-10-14] MEDS: Acetaminophen 650mg/20.3ml NG PRN (00:40)
[2017-10-14] MEDS: LORazepam Inj 2mg/ml 1ml IV PRN ×3 (02:44→21:39)
[2017-10-14] MEDS: Meropenem 1 GM in NS 55 ML IVPB SCH ×2 (03:34→16:33)
[2017-10-14 05:52] LABS: HEMATOCRIT 44.6 % (42.0-52.0); HEMOGLOBIN 12.5 G/DL (14.2-18.0); MEAN CORPUSCULAR VOLUME 66 FL (80-99); PLATELET COUNT 72 K/UL (150-450); RED BLOOD COUNT 6.72 M/UL (4.70-6.10); RED CELL DISTRIBUTION WIDTH 20.5 % (11.6-14.8); WHITE BLOOD COUNT 11.8 K/UL (4.8-10.8)
[2017-10-14] MEDS: Hydrocortisone 100mg Inj IV SCH ×3 (06:02→21:39)
[2017-10-14] MEDS: NovoLOG Insulin Flexpen SUBQ SCH ×4 (06:06→20:33)
[2017-10-14 06:34] LABS: ANION GAP 2 mmol/L (5-15); BLOOD UREA NITROGEN 47 mg/dL (7-18); CARBON DIOXIDE 38 MMOL/L (21-32); CHLORIDE 111 MMOL/L (98-107); CREATININE 2.5 MG/DL (0.55-1.30); POTASSIUM 4.2 MMOL/L (3.5-5.1); SODIUM 151 MMOL/L (136-145)
[2017-10-14 06:35] LABS: ALANINE AMINOTRANSFERASE 11 U/L (12-78); ALBUMIN 1.6 G/DL (3.4-5.0); ALBUMIN/GLOBULIN RATIO 0.3 (1.0-2.7); ALKALINE PHOSPHATASE 61 U/L (46-116); ASPARTATE AMINO TRANSFERASE 25 U/L (15-37); BILIRUBIN,TOTAL 0.5 MG/DL (0.2-1.0); CALCIUM 8.5 MG/DL (8.5-10.1); PHOSPHORUS 3.4 MG/DL (2.5-4.9)
--- NOTE | 2017-10-14 07:37 | Pulmonolgy Critical Care Note ---
Critical Care - Asmt/Plan Assessment/Plan: ASSESSMENT Acute hypercapnic RF requiring intubation likely aspiration PNA with Proteus acute pulmonary edema probable ARDS Likely scrotal cellulitis Urinary retention-relieved ARF likely ATN hypernatremia Thrombocytopenia psoriasis morbid obesity new onset of diabetes PLAN OF CARE ICU Vent support, pulmonary toilet daily CXR and ABG ABG this am with decreasing hypercapnia, no acidosis, keep current settings continue steroids abx ID follows sputum cx + Proteus, repeated sputum cx + GNB;m urine cx negative, blood cx prel negative nephro follows renal parameters w/out change nephro started on IVF, monitor renal parameters, lytes, correct as need, avoid necrotoxic prior: renal US with 1500cc urinary retention Carrington placed by urologist will follow scrotal US pending elevate scrotum Venous Duplex BLE ECHO with grossly preserved EF, normal wall motion to the extent visualized Pain management DVT/GI prophylaxis Monitor counts PaP1r-3 new onset of DM discussed with mother at the bedside in detail about poor prognosis and seriousness of condition on 10/12 case discussed and evaluated by supervising physician Critical Care - Objective Last 24 Hour Vital Signs Date Time Temp Pulse Resp B/P (MAP) Pulse Ox O2 Delivery O2 Flow Rate FiO2 10/14/17 07:00 25 10/14/17 07:00 76 25 111/62 94 Mechanical Ventilator 100 10/14/17 06:55 80 27 100 10/14/17 06:30 76 25 94/64 94 Mechanical Ventilator 100 10/14/17 06:00 78 24 109/59 94 Mechanical Ventilator 100 10/14/17 06:00 24 10/14/17 05:30 73 23 113/53 92 Mechanical Ventilator 100 10/14/17 05:21 94 24 100 10/14/17 05:00 71 24 96/51 93 Mechanical Ventilator 100 10/14/17 05:00 24 10/14/17 04:30 78 25 99/49 93 Mechanical Ventilator 100 10/14/17 04:00 98.6 78 25 105/61 93 Mechanical Ventilator 100 10/14/17 04:00 100 10/14/17 04:00 25 10/14/17 03:30 78 26 103/56 94 Mechanical Ventilator 100 10/14/17 03:23 80 10/14/17 03:00 29 10/14/17 03:00 86 29 105/56 94 Mechanical Ventilator 100 10/14/17 02:39 102 29 100 10/14/17 02:30 86 22 112/56 94 Mechanical Ventilator 100 10/14/17 02:27 94 22 94 Mechanical Ventilator 10/14/17 02:26 91 22 91 Mechanical Ventilator 10/14/17 02:00 29 10/14/17 02:00 84 29 113/59 92 Mechanical Ventilator 100 10/14/17 01:57 28 10/14/17 01:30 91 28 112/52 93 Mechanical Ventilator 100 10/14/17 01:15 95 29 117/63 92 Mechanical Ventilator 100 10/14/17 01:04 89 27 100 10/14/17 01:00 28 10/14/17 01:00 90 28 111/54 91 Mechanical Ventilator 100 10/14/17 00:45 86 28 111/58 91 Mechanical Ventilator 100 10/14/17 00:30 86 29 114/67 90 Mechanical Ventilator 100 10/14/17 00:30 29 10/14/17 00:00 100 10/14/17 00:00 99.6 84 27 114/62 90 Mechanical Ventilator 100 10/14/17 00:00 27 10/13/17 23:51 87 10/13/17 23:30 82 24 100 10/13/17 23:30 92 27 115/84 92 Mechanical Ventilator 100 10/13/17 23:00 24 10/13/17 23:00 84 24 122/70 89 Mechanical Ventilator 100 10/13/17 22:30 81 25 108/56 91 Mechanical Ventilator 100 10/13/17 22:00 75 25 104/52 90 Mechanical Ventilator 100 10/13/17 22:00 25 10/13/17 21:30 80 26 100 10/13/17 21:30 80 25 101/54 89 Mechanical Ventilator 100 10/13/17 21:00 19 10/13/17 21:00 75 25 100/58 89 Mechanical Ventilator 100 10/13/17 20:30 80 22 105/58 90 Mechanical Ventilator 100 10/13/17 20:00 99.0 80 22 108/53 91 Mechanical Ventilator 100 10/13/17 20:00 100 10/13/17 20:00 20 10/13/17 19:42 79 10/13/17 19:30 77 24 100 10/13/17 19:30 80 19 103/50 87 Mechanical Ventilator 100 10/13/17 19:00 74 23 100/55 90 Mechanical Ventilator 100 10/13/17 18:30 74 22 100/56 90 Mechanical Ventilator 100 10/13/17 18:00 74 22 95/53 90 Mechanical Ventilator 100 10/13/17 17:30 82 23 104/57 93 Mechanical Ventilator 100 10/13/17 17:01 102 22 100 10/13/17 17:00 89 23 110/62 92 Mechanical Ventilator 100 10/13/17 16:30 81 22 100/60 95 Mechanical Ventilator 100 10/13/17 16:00 100 10/13/17 16:00 87 10/13/17 16:00 98.6 84 20 107/58 95 Mechanical Ventilator 100 10/13/17 15:30 90 22 119/67 95 Mechanical Ventilator 100 10/13/17 15:00 21 10/13/17 15:00 88 22 114/67 95 Mechanical Ventilator 100 10/13/17 14:50 98 24 100 10/13/17 14:30 98.5 74 20 103/61 95 Mechanical Ventilator 100 10/13/17 14:00 78 22 102/57 94 Mechanical Ventilator 100 10/13/17 13:30 84 21 102/58 95 Mechanical Ventilator 100 10/13/17 13:00 84 21 108/58 95 Mechanical Ventilator 100 10/13/17 12:40 101 23 100 10/13/17 12:30 100 20 115/55 90 Mechanical Ventilator 100 10/13/17 12:00 95 10/13/17 12:00 99.3 90 20 111/67 96 Mechanical Ventilator 100 10/13/17 11:30 21 10/13/17 11:30 85 20 104/63 98 Mechanical Ventilator 100 10/13/17 11:00 85 20 97/54 100 Mechanical Ventilator 100 10/13/17 11:00 21 10/13/17 10:39 88 22 100 10/13/17 10:30 89 22 99/57 100 Mechanical Ventilator 100 10/13/17 10:18 99.6 10/13/17 10:00 100.3 101 20 105/60 98 Mechanical Ventilator 100 10/13/17 09:47 24 10/13/17 09:30 110 23 115/69 96 Mechanical Ventilator 100 10/13/17 09:12 115 25 100 10/13/17 09:00 100 10/13/17 09:00 114 23 102/20 93 Mechanical Ventilator 100 10/13/17 08:30 112 20 117/70 93 Mechanical Ventilator 100 10/13/17 08:00 105 10/13/17 08:00 20 10/13/17 08:00 99.0 105 20 110/70 95 Mechanical Ventilator 100 10/13/17 08:00 100 HEENT: normocephalic, other - OP with ET in [facility] Objective: Status: sedated, morbidly obese middle age male, intubated Condition: critical HEENT: atraumatic, normocephalic, OP with ET in place, intact, NGT Lungs: scattered rhonchi at bases, tachypneic Heart: HR/BP stable, RUE PICC intact Abdomen: soft - obese , active bowel sounds Extremities: no C/C/ + trace to +1 edema BLE Micro: Microbiology Date/Time Source Procedure Growth Status 10/11/17 17:00 Sputum Gram Stain - Final Resulted 10/11/17 17:00 Sputum Culture - Preliminary Gram Negative Bacillus 1 Resulted Accucheck: 126 Critical Care - Subjective ROS Limited/Unobtainable: Yes Interval Events: sedated intubated remains on nearly max vent settings started on steroids 10/13 this am ABG better, less hypercapnia, no acidosis Condition: critical IV Access: PICC - RUE intact EKG Rhythm: Sinus Rhythm FI02: 100 Vent Support Breath Rate: 22 Vent Support Mode: AC Vent Tidal Volume: 550 Sputum Amount: Small PEEP: 16.0 PIP: 36 Drips: Fentanyl gtt 90 mcg/hr Tube Feeding Amount: 40 CXR: CXR 10/14 -unchanged extensive interstitial and bilateral airspace opacities with air bronchograms. These findings are suggestive of the severe alveolar filling process such as pulmonary edema, multifocal pneumonia and/or ARDS. ET-Tube: 7.5 ET Position: 25 [place]ambo (Kalee Francis NP Oct 14, 2017 07:37
[2017-10-14] MEDS: Heparin 5000 units/ml inj SUBQ SCH (09:00)
[2017-10-14] MEDS: Pantoprazole Inj IV SCH (09:12)
[2017-10-14] MEDS: Docusate 100mg/10ml Liq GT SCH ×2 (09:12→17:21)
--- NOTE | 2017-10-14 11:12 | Nephrology Progress Note ---
Assessment/Plan Problem List: (1) Acute respiratory failure (2) Acute renal failure Assessment: with previous urinary out let obstruction Assessment Acute renal failure- Cr same Acute Respiratory distress , ? aspiration pneumonia, intubated Acute Pulmonary edema Anasarca scotal cellutis Morbid obesity. Thrombocytopenia. Abnormal blood sugar. Anemia. Plan Plan: trial steroids K and Mag supplement as needed Keep BP in check pulm support avoid nephrotoxics monitor renal parameters per consultants per orders Left ventricular ejection fraction estimated to be grossly normal. Mild left ventricular hypertrophy. Subjective ROS Limited/Unobtainable: Yes Objective Objective Last 24 Hour Vital Signs Date Time Temp Pulse Resp B/P (MAP) Pulse Ox O2 Delivery O2 Flow Rate FiO2 10/14/17 10:30 74 25 106/53 93 Mechanical Ventilator 100 10/14/17 10:00 79 27 114/61 94 Mechanical Ventilator 100 10/14/17 09:30 89 25 119/61 93 Mechanical Ventilator 100 10/14/17 09:28 86 23 100 10/14/17 09:00 78 10/14/17 09:00 79 22 97/46 94 Mechanical Ventilator 100 10/14/17 08:30 80 25 110/59 95 Mechanical Ventilator 100 10/14/17 08:00 100 10/14/17 08:00 98.7 89 24 116/70 93 Mechanical Ventilator 100 10/14/17 07:30 75 23 110/60 94 Mechanical Ventilator 100 10/14/17 07:00 25 10/14/17 07:00 76 25 111/62 94 Mechanical Ventilator 100 10/14/17 06:55 80 27 100 10/14/17 06:30 76 25 94/64 94 Mechanical Ventilator 100 10/14/17 06:00 78 24 109/59 94 Mechanical Ventilator 100 10/14/17 06:00 24 10/14/17 05:30 73 23 113/53 92 Mechanical Ventilator 100 10/14/17 05:21 94 24 100 10/14/17 05:00 71 24 96/51 93 Mechanical Ventilator 100 10/14/17 05:00 24 10/14/17 04:30 78 25 99/49 93 Mechanical Ventilator 100 10/14/17 04:00 98.6 78 25 105/61 93 Mechanical Ventilator 100 10/14/17 04:00 100 10/14/17 04:00 25 10/14/17 03:30 78 26 103/56 94 Mechanical Ventilator 100 10/14/17 03:23 80 10/14/17 03:00 29 10/14/17 03:00 86 29 105/56 94 Mechanical Ventilator 100 10/14/17 02:39 102 29 100 10/14/17 02:30 86 22 112/56 94 Mechanical Ventilator 100 10/14/17 02:27 94 22 94 Mechanical Ventilator 10/14/17 02:26 91 22 91 Mechanical Ventilator 10/14/17 02:00 29 10/14/17 02:00 84 29 113/59 92 Mechanical Ventilator 100 10/14/17 01:57 28 10/14/17 01:30 91 28 112/52 93 Mechanical Ventilator 100 10/14/17 01:15 95 29 117/63 92 Mechanical Ventilator 100 10/14/17 01:04 89 27 100 10/14/17 01:00 28 10/14/17 01:00 90 28 111/54 91 Mechanical Ventilator 100 10/14/17 00:45 86 28 111/58 91 Mechanical Ventilator 100 10/14/17 00:30 86 29 114/67 90 Mechanical Ventilator 100 10/14/17 00:30 29 10/14/17 00:00 100 10/14/17 00:00 99.6 84 27 114/62 90 Mechanical Ventilator 100 10/14/17 00:00 27 10/13/17 23:51 87 10/13/17 23:30 82 24 100 10/13/17 23:30 92 27 115/84 92 Mechanical Ventilator 100 10/13/17 23:00 24 10/13/17 23:00 84 24 122/70 89 Mechanical Ventilator 100 10/13/17 22:30 81 25 108/56 91 Mechanical Ventilator 100 10/13/17 22:00 75 25 104/52 90 Mechanical Ventilator 100 10/13/17 22:00 25 10/13/17 21:30 80 26 100 10/13/17 21:30 80 25 101/54 89 Mechanical Ventilator 100 10/13/17 21:00 19 10/13/17 21:00 75 25 100/58 89 Mechanical Ventilator 100 10/13/17 20:30 80 22 105/58 90 Mechanical Ventilator 100 10/13/17 20:00 99.0 80 22 108/53 91 Mechanical Ventilator 100 10/13/17 20:00 100 10/13/17 20:00 20 10/13/17 19:42 79 10/13/17 19:30 77 24 100 10/13/17 19:30 80 19 103/50 87 Mechanical Ventilator 100 10/13/17 19:00 74 23 100/55 90 Mechanical Ventilator 100 10/13/17 18:30 74 22 100/56 90 Mechanical Ventilator 100 10/13/17 18:00 74 22 95/53 90 Mechanical Ventilator 100 10/13/17 17:30 82 23 104/57 93 Mechanical Ventilator 100 10/13/17 17:01 102 22 100 10/13/17 17:00 89 23 110/62 92 Mechanical Ventilator 100 10/13/17 16:30 81 22 100/60 95 Mechanical Ventilator 100 10/13/17 16:00 100 10/13/17 16:00 87 10/13/17 16:00 98.6 84 20 107/58 95 Mechanical Ventilator 100 10/13/17 15:30 90 22 119/67 95 Mechanical Ventilator 100 10/13/17 15:00 21 10/13/17 15:00 88 22 114/67 95 Mechanical Ventilator 100 10/13/17 14:50 98 24 100 10/13/17 14:30 98.5 74 20 103/61 95 Mechanical Ventilator 100 10/13/17 14:00 78 22 102/57 94 Mechanical Ventilator 100 10/13/17 13:30 84 21 102/58 95 Mechanical Ventilator 100 10/13/17 13:00 84 21 108/58 95 Mechanical Ventilator 100 10/13/17 12:40 101 23 100 10/13/17 12:30 100 20 115/55 90 Mechanical Ventilator 100 10/13/17 12:00 95 10/13/17 12:00 99.3 90 20 111/67 96 Mechanical Ventilator 100 10/13/17 11:30 21 10/13/17 11:30 85 20 104/63 98 Mechanical Ventilator 100 Intake and Output 10/14/17 10/15/17 19:00 07:00 Intake Total 205 ml Output Total 225 ml Balance -20 ml Free Water 50 ml Tube Feeding 120 ml Other 35 ml Output Urine Total 225 ml Laboratory Tests 10/13/17 12:00: Random Vancomycin Level 9.4 10/14/17 05:30: White Blood Count 11.8H, Red Blood Count 6.72H, Hemoglobin 12.5L, Hematocrit 44.6, Mean Corpuscular Volume 66L, Mean Corpuscular Hemoglobin 18.6L, Mean Corpuscular Hemoglobin Concent 28.1L, Red Cell Distribution Width 20.5H, Platelet Count 72L, Mean Platelet Volume 7.6, Neutrophils (%) (Auto) , Lymphocytes (%) (Auto) , Monocytes (%) (Auto) , Eosinophils (%) (Auto) , Basophils (%) (Auto) , Differential Total Cells Counted 100, Neutrophils % ( Manual) 92H, Lymphocytes % (Manual) 2L, Monocytes % (Manual) 5, Eosinophils % ( Manual) 0, Basophils % (Manual) 0, Band Neutrophils 1, Platelet Estimate DecreasedL, Platelet Morphology Normal, Hypochromasia 1+, Anisocytosis 2+, Microcytosis 2+, Sodium Level 151H, Potassium Level 4.2, Chloride Level 111H, Carbon Dioxide Level 38H, Anion Gap 2L, Blood Urea Nitrogen 47H, Creatinine 2.5H , Estimat Glomerular Filtration Rate 28.7, Glucose Level 146H, Lactic Acid Level 1.30, Uric Acid 6.9, Calcium Level 8.5, Phosphorus Level 3.4, Magnesium Level 2.6H, Total Bilirubin 0.5, Aspartate Amino Transf (AST/SGOT) 25, Alanine Aminotransferase (ALT/SGPT) 11L, Alkaline Phosphatase 61, C-Reactive Protein, Quantitative 30.0H, Pro-B-Type Natriuretic Peptide 5167H, Total Protein 7.0, Albumin 1.6L, Globulin 5.4, Albumin/Globulin Ratio 0.3L 10/14/17 08:00: Arterial Blood pH 7.346L, Arterial Blood Partial Pressure CO2 75.4*H, Arterial Blood Partial Pressure O2 74.2L, Arterial Blood HCO3 40.3H, Arterial Blood Oxygen Saturation 93.1, Arterial Blood Base Excess 11.5, Naif Test Positive Height (Feet): 5 Height (Inches): 4.00 Weight (Pounds): 356 General Appearance: no apparent distress Cardiovascular: tachycardia Respiratory/Chest: decreased breath sounds Abdomen: distended Objective no other change JAY YANCEY Oct 14, 2017 11:12
--- NOTE | 2017-10-14 12:59 | General Progress Note ---
Assessment/Plan Status: unchanged Assessment/Plan 1. VDRF 2. ARDS-Hypoxemic respiratory failure. 3.Sepsis: Aspiration Gram negative HCA-PNA 4. Gram negative HCA-PNA 5. Cellulitis of the scrotal area. 6. Morbid obesity. 7. ARF 8. Obstructive uropathy 9. Thrombocytopenia. 10. DM-2 11. Anemia. 12. Gastrointestinal and deep vein thrombosis prophylaxes. 13. Psoriasis PLAN OF CARE: NOtes from Infectious Diseases Dr. Pineda, Nephrology, Dr Urrutia, Pulmonary Dr. Casas are reviewed status post insertion of urinary kellogg. current pulmonary management again, I spoke the care with the mother at bedside Poor Prognosis Subjective ROS Limited/Unobtainable: Yes Allergies: Coded Allergies: No Known Allergies (Unverified , 10/06/17) Objective Last 24 Hour Vital Signs Date Time Temp Pulse Resp B/P (MAP) Pulse Ox O2 Delivery O2 Flow Rate FiO2 10/14/17 12:38 83 28 100 10/14/17 12:30 74 25 103/56 94 Mechanical Ventilator 100 10/14/17 12:00 99.1 73 26 103/52 93 Mechanical Ventilator 100 10/14/17 12:00 100 10/14/17 11:30 78 27 110/55 93 Mechanical Ventilator 100 10/14/17 11:12 74 26 100 10/14/17 11:00 74 25 104/50 93 Mechanical Ventilator 100 10/14/17 10:30 74 25 106/53 93 Mechanical Ventilator 100 10/14/17 10:00 79 27 114/61 94 Mechanical Ventilator 100 10/14/17 09:30 89 25 119/61 93 Mechanical Ventilator 100 10/14/17 09:28 86 23 100 10/14/17 09:00 78 10/14/17 09:00 79 22 97/46 94 Mechanical Ventilator 100 10/14/17 08:30 80 25 110/59 95 Mechanical Ventilator 100 10/14/17 08:00 100 10/14/17 08:00 98.7 89 24 116/70 93 Mechanical Ventilator 100 10/14/17 07:30 75 23 110/60 94 Mechanical Ventilator 100 10/14/17 07:00 25 10/14/17 07:00 76 25 111/62 94 Mechanical Ventilator 100 10/14/17 06:55 80 27 100 10/14/17 06:30 76 25 94/64 94 Mechanical Ventilator 100 10/14/17 06:00 78 24 109/59 94 Mechanical Ventilator 100 10/14/17 06:00 24 10/14/17 05:30 73 23 113/53 92 Mechanical Ventilator 100 10/14/17 05:21 94 24 100 10/14/17 05:00 71 24 96/51 93 Mechanical Ventilator 100 10/14/17 05:00 24 10/14/17 04:30 78 25 99/49 93 Mechanical Ventilator 100 10/14/17 04:00 98.6 78 25 105/61 93 Mechanical Ventilator 100 10/14/17 04:00 100 10/14/17 04:00 25 10/14/17 03:30 78 26 103/56 94 Mechanical Ventilator 100 10/14/17 03:23 80 10/14/17 03:00 29 10/14/17 03:00 86 29 105/56 94 Mechanical Ventilator 100 10/14/17 02:39 102 29 100 10/14/17 02:30 86 22 112/56 94 Mechanical Ventilator 100 10/14/17 02:27 94 22 94 Mechanical Ventilator 10/14/17 02:26 91 22 91 Mechanical Ventilator 10/14/17 02:00 29 10/14/17 02:00 84 29 113/59 92 Mechanical Ventilator 100 10/14/17 01:57 28 10/14/17 01:30 91 28 112/52 93 Mechanical Ventilator 100 10/14/17 01:15 95 29 117/63 92 Mechanical Ventilator 100 10/14/17 01:04 89 27 100 10/14/17 01:00 28 10/14/17 01:00 90 28 111/54 91 Mechanical Ventilator 100 10/14/17 00:45 86 28 111/58 91 Mechanical Ventilator 100 10/14/17 00:30 86 29 114/67 90 Mechanical Ventilator 100 10/14/17 00:30 29 10/14/17 00:00 100 10/14/17 00:00 99.6 84 27 114/62 90 Mechanical Ventilator 100 10/14/17 00:00 27 10/13/17 23:51 87 10/13/17 23:30 82 24 100 10/13/17 23:30 92 27 115/84 92 Mechanical Ventilator 100 10/13/17 23:00 24 10/13/17 23:00 84 24 122/70 89 Mechanical Ventilator 100 10/13/17 22:30 81 25 108/56 91 Mechanical Ventilator 100 10/13/17 22:00 75 25 104/52 90 Mechanical Ventilator 100 10/13/17 22:00 25 10/13/17 21:30 80 26 100 10/13/17 21:30 80 25 101/54 89 Mechanical Ventilator 100 10/13/17 21:00 19 10/13/17 21:00 75 25 100/58 89 Mechanical Ventilator 100 10/13/17 20:30 80 22 105/58 90 Mechanical Ventilator 100 10/13/17 20:00 99.0 80 22 108/53 91 Mechanical Ventilator 100 10/13/17 20:00 100 10/13/17 20:00 20 10/13/17 19:42 79 10/13/17 19:30 77 24 100 10/13/17 19:30 80 19 103/50 87 Mechanical Ventilator 100 10/13/17 19:00 74 23 100/55 90 Mechanical Ventilator 100 10/13/17 18:30 74 22 100/56 90 Mechanical Ventilator 100 10/13/17 18:00 74 22 95/53 90 Mechanical Ventilator 100 10/13/17 17:30 82 23 104/57 93 Mechanical Ventilator 100 10/13/17 17:01 102 22 100 10/13/17 17:00 89 23 110/62 92 Mechanical Ventilator 100 10/13/17 16:30 81 22 100/60 95 Mechanical Ventilator 100 10/13/17 16:00 100 10/13/17 16:00 87 10/13/17 16:00 98.6 84 20 107/58 95 Mechanical Ventilator 100 10/13/17 15:30 90 22 119/67 95 Mechanical Ventilator 100 10/13/17 15:00 21 10/13/17 15:00 88 22 114/67 95 Mechanical Ventilator 100 10/13/17 14:50 98 24 100 10/13/17 14:30 98.5 74 20 103/61 95 Mechanical Ventilator 100 10/13/17 14:00 78 22 102/57 94 Mechanical Ventilator 100 10/13/17 13:30 84 21 102/58 95 Mechanical Ventilator 100 10/13/17 13:00 84 21 108/58 95 Mechanical Ventilator 100 Intake and Output 10/14/17 10/15/17 18:59 06:59 Intake Total 334 ml Output Total 335 ml Balance -1 ml Free Water 50 ml IV Total 9 ml Tube Feeding 240 ml Other 35 ml Output Urine Total 335 ml Laboratory Tests 10/14/17 05:30: White Blood Count 11.8H, Red Blood Count 6.72H, Hemoglobin 12.5L, Hematocrit 44.6, Mean Corpuscular Volume 66L, Mean Corpuscular Hemoglobin 18.6L, Mean Corpuscular Hemoglobin Concent 28.1L, Red Cell Distribution Width 20.5H, Platelet Count 72L, Mean Platelet Volume 7.6, Neutrophils (%) (Auto) , Lymphocytes (%) (Auto) , Monocytes (%) (Auto) , Eosinophils (%) (Auto) , Basophils (%) (Auto) , Differential Total Cells Counted 100, Neutrophils % ( Manual) 92H, Lymphocytes % (Manual) 2L, Monocytes % (Manual) 5, Eosinophils % ( Manual) 0, Basophils % (Manual) 0, Band Neutrophils 1, Platelet Estimate DecreasedL, Platelet Morphology Normal, Hypochromasia 1+, Anisocytosis 2+, Microcytosis 2+, Sodium Level 151H, Potassium Level 4.2, Chloride Level 111H, Carbon Dioxide Level 38H, Anion Gap 2L, Blood Urea Nitrogen 47H, Creatinine 2.5H , Estimat Glomerular Filtration Rate 28.7, Glucose Level 146H, Lactic Acid Level 1.30, Uric Acid 6.9, Calcium Level 8.5, Phosphorus Level 3.4, Magnesium Level 2.6H, Total Bilirubin 0.5, Aspartate Amino Transf (AST/SGOT) 25, Alanine Aminotransferase (ALT/SGPT) 11L, Alkaline Phosphatase 61, C-Reactive Protein, Quantitative 30.0H, Pro-B-Type Natriuretic Peptide 5167H, Total Protein 7.0, Albumin 1.6L, Globulin 5.4, Albumin/Globulin Ratio 0.3L 10/14/17 08:00: Arterial Blood pH 7.346L, Arterial Blood Partial Pressure CO2 75.4*H, Arterial Blood Partial Pressure O2 74.2L, Arterial Blood HCO3 40.3H, Arterial Blood Oxygen Saturation 93.1, Arterial Blood Base Excess 11.5, Naif Test Positive Height (Feet): 5 Height (Inches): 4.00 Weight (Pounds): 356 General Appearance: other - Limited. sedated. intubated EENT: other - Limited. sedated. intubated Cardiovascular: normal rate Respiratory/Chest: rhonchi - bilaterally, rhonchi - left, rhonchi - right Abdomen: soft Extremities: other - Limited. sedated. intubated Nery Combs MD Oct 14, 2017 12:59
--- NOTE | 2017-10-14 13:01 | Diagnostic Imaging Report ---
Indication: NG tube placement. Technique: XRAY Abdomen 1v Comparison: None Findings: Limited exam due to underpenetration. A tube is noted with its tip projecting over the proximal stomach. The side-port of the nasogastric tube is not clearly visualized. Impression: Limited exam. NG tube tip in the region of the proximal stomach. Side port not visualized well. This corresponds with the [facility] preliminary report.
--- NOTE | 2017-10-14 13:26 | Diagnostic Imaging Report ---
Indication: Shortness of breath Technique: XRAY Chest 1v Comparison: None Findings: Heart size and mediastinal contours appear stable. Enteric tube and NG tube and PICC line appear unchanged in position. There is unchanged extensive interstitial and bilateral airspace opacities with air bronchograms. These findings are suggestive of the severe alveolar filling process such as pulmonary edema, multifocal pneumonia and/or ARDS. There is no pneumothorax. Impression: No significant interval change in severe bilateral interstitial and airspace opacities compared to one day prior.
[2017-10-14] MEDS ORDERED: Meropenem 1gm/NS 110ml IVPB SCH ×2 (16:00)
[2017-10-14] MEDS: Vancomycin 1250mg/D5W 250ml IVPB SCH (17:22)
[2017-10-14] MEDS ORDERED: Etomidate 40mg/20ml Inj IV ONE (18:01)
[2017-10-14] MEDS ORDERED: Succinylcholine 20mg/ml 10ml vial ONE (18:01)
[2017-10-14] MEDS: Dyna-Hex 2% Top Sol 2oz TOPIC SCH (19:35)
[2017-10-14] MEDS: Milk of Magnesia 30ml Ud GT PRN (21:39)
[2017-10-15] VITALS (46 sets, daily range): BP systolic 91–140; BP diastolic 38–86
[2017-10-15] MEDS: Meropenem 1 GM in NS 55 ML IVPB SCH ×2 (03:31→15:41)
[2017-10-15 04:36] LABS: HEMATOCRIT 45.6 % (42.0-52.0); HEMOGLOBIN 12.7 G/DL (14.2-18.0); MEAN CORPUSCULAR VOLUME 67 FL (80-99); PLATELET COUNT 131 K/UL (150-450); RED BLOOD COUNT 6.85 M/UL (4.70-6.10); RED CELL DISTRIBUTION WIDTH 20.8 % (11.6-14.8); WHITE BLOOD COUNT 12.9 K/UL (4.8-10.8)
[2017-10-15 04:59] LABS: ALANINE AMINOTRANSFERASE 15 U/L (12-78); ALBUMIN 1.8 G/DL (3.4-5.0); ALBUMIN/GLOBULIN RATIO 0.3 (1.0-2.7); ALKALINE PHOSPHATASE 74 U/L (46-116); ANION GAP 2 mmol/L (5-15); ASPARTATE AMINO TRANSFERASE 27 U/L (15-37); BILIRUBIN,TOTAL 0.4 MG/DL (0.2-1.0); BLOOD UREA NITROGEN 50 mg/dL (7-18); CALCIUM 8.8 MG/DL (8.5-10.1); CARBON DIOXIDE 39 MMOL/L (21-32); CHLORIDE 108 MMOL/L (98-107); CREATININE 2.2 MG/DL (0.55-1.30); GAMMA GLUTAMYL TRANSPEPTIDASE 29 U/L (5-85); PHOSPHORUS 4.2 MG/DL (2.5-4.9); POTASSIUM 3.9 MMOL/L (3.5-5.1); SODIUM 149 MMOL/L (136-145)
[2017-10-15] MEDS: Hydrocortisone 100mg Inj IV SCH ×3 (05:57→21:49)
[2017-10-15] MEDS: NovoLOG Insulin Flexpen SUBQ SCH ×4 (06:04→20:53)
[2017-10-15] MEDS: Midazolam/D5W 100ml 100 ML IVPB PRN ×2 (08:21→19:03)
[2017-10-15] MEDS: Docusate 100mg/10ml Liq GT SCH ×2 (08:21→17:53)
[2017-10-15] MEDS: Pantoprazole Inj IV SCH (08:22)
[2017-10-15] MEDS: Heparin 5000 units/ml inj SUBQ SCH (08:29)
--- NOTE | 2017-10-15 08:43 | General Progress Note ---
Assessment/Plan Status: unchanged Assessment/Plan 1. VDRF 2. ARDS-Hypoxemic respiratory failure. 3.Sepsis: Aspiration Gram negative HCA-PNA 4. Gram negative HCA-PNA 5. Cellulitis of the scrotal area. 6. Morbid obesity. 7. ARF 8. Obstructive uropathy 9. Thrombocytopenia. 10. DM-2 11. Anemia. 12. Gastrointestinal and deep vein thrombosis prophylaxes. 13. Psoriasis PLAN OF CARE: NOtes from Infectious Diseases Dr. Pineda, Nephrology, Dr Urrutia, current pulmonary management Poor Prognosis Subjective ROS Limited/Unobtainable: Yes Allergies: Coded Allergies: No Known Allergies (Unverified , 10/06/17) Objective Last 24 Hour Vital Signs Date Time Temp Pulse Resp B/P (MAP) Pulse Ox O2 Delivery O2 Flow Rate FiO2 10/15/17 08:21 23 10/15/17 08:21 23 10/15/17 07:10 61 22 100 10/15/17 07:00 72 16 114/68 94 Mechanical Ventilator 100 10/15/17 07:00 20 10/15/17 06:30 85 22 100/60 96 Mechanical Ventilator 100 10/15/17 06:00 82 21 103/63 94 Mechanical Ventilator 100 10/15/17 06:00 21 10/15/17 05:30 62 22 100 10/15/17 05:30 63 20 91/72 95 Mechanical Ventilator 100 10/15/17 05:00 71 22 109/51 96 Mechanical Ventilator 100 10/15/17 05:00 22 10/15/17 04:30 87 22 111/65 94 Mechanical Ventilator 100 10/15/17 04:00 100 10/15/17 04:00 22 10/15/17 04:00 97.7 87 22 115/70 95 Mechanical Ventilator 100 10/15/17 03:31 86 10/15/17 03:30 84 22 133/76 94 Mechanical Ventilator 100 10/15/17 03:13 69 24 100 10/15/17 03:00 22 10/15/17 03:00 67 22 111/62 93 Mechanical Ventilator 100 10/15/17 02:30 73 22 108/58 95 Mechanical Ventilator 100 10/15/17 02:00 69 22 112/63 95 Mechanical Ventilator 100 10/15/17 02:00 22 10/15/17 01:30 78 23 122/64 95 Mechanical Ventilator 100 10/15/17 01:30 78 22 100 10/15/17 01:00 86 21 118/78 93 Mechanical Ventilator 100 10/15/17 01:00 28 10/15/17 00:30 86 25 125/74 92 Mechanical Ventilator 100 10/15/17 00:00 100 10/15/17 00:00 98.9 88 25 124/66 92 Mechanical Ventilator 100 10/15/17 00:00 25 10/14/17 23:30 84 26 100 10/14/17 23:30 86 25 121/69 92 Mechanical Ventilator 100 10/14/17 23:01 24 10/14/17 23:00 80 23 116/64 93 Mechanical Ventilator 100 10/14/17 23:00 23 10/14/17 22:59 80 10/14/17 22:30 73 23 112/65 93 Mechanical Ventilator 100 10/14/17 22:00 21 10/14/17 22:00 73 25 119/63 94 Mechanical Ventilator 100 10/14/17 21:30 60 21 100 10/14/17 21:30 103 21 129/74 93 Mechanical Ventilator 100 10/14/17 21:00 70 21 117/61 92 Mechanical Ventilator 100 10/14/17 21:00 21 10/14/17 20:30 64 22 113/68 95 Mechanical Ventilator 100 10/14/17 20:00 22 10/14/17 20:00 22 10/14/17 20:00 97.9 61 22 112/67 95 Mechanical Ventilator 100 10/14/17 20:00 100 10/14/17 19:30 65 22 115/63 95 Mechanical Ventilator 100 10/14/17 19:30 63 22 100 10/14/17 19:07 65 10/14/17 19:00 65 23 116/65 95 Mechanical Ventilator 100 10/14/17 19:00 22 10/14/17 19:00 22 10/14/17 18:30 68 26 108/62 95 Mechanical Ventilator 100 10/14/17 18:00 68 24 112/65 95 Mechanical Ventilator 100 10/14/17 18:00 24 10/14/17 18:00 24 10/14/17 17:30 74 26 94/61 94 Mechanical Ventilator 100 10/14/17 17:05 71 22 100 10/14/17 17:00 24 10/14/17 17:00 24 10/14/17 17:00 73 24 105/60 96 Mechanical Ventilator 100 10/14/17 16:30 85 26 121/64 95 Mechanical Ventilator 100 10/14/17 16:00 28 10/14/17 16:00 28 10/14/17 16:00 99.6 85 28 104/55 95 Mechanical Ventilator 100 10/14/17 16:00 100 10/14/17 15:30 30 10/14/17 15:30 30 10/14/17 15:30 88 30 106/60 95 Mechanical Ventilator 100 10/14/17 15:20 90 31 100 10/14/17 15:02 32 10/14/17 15:00 30 10/14/17 15:00 30 10/14/17 15:00 88 30 105/48 94 Mechanical Ventilator 100 10/14/17 14:30 87 30 108/58 95 Mechanical Ventilator 100 10/14/17 14:00 84 29 106/49 95 Mechanical Ventilator 100 10/14/17 14:00 29 10/14/17 14:00 29 10/14/17 13:30 84 25 112/53 95 Mechanical Ventilator 100 10/14/17 13:00 83 25 108/54 92 Mechanical Ventilator 100 10/14/17 13:00 26 10/14/17 13:00 26 10/14/17 12:38 83 28 100 10/14/17 12:30 74 25 103/56 94 Mechanical Ventilator 100 10/14/17 12:00 26 10/14/17 12:00 99.1 73 26 103/52 93 Mechanical Ventilator 100 10/14/17 12:00 73 10/14/17 12:00 100 10/14/17 11:30 78 27 110/55 93 Mechanical Ventilator 100 10/14/17 11:12 74 26 100 10/14/17 11:00 74 25 104/50 93 Mechanical Ventilator 100 10/14/17 11:00 25 10/14/17 10:30 74 25 106/53 93 Mechanical Ventilator 100 10/14/17 10:00 28 10/14/17 10:00 79 27 114/61 94 Mechanical Ventilator 100 10/14/17 09:30 89 25 119/61 93 Mechanical Ventilator 100 10/14/17 09:28 86 23 100 10/14/17 09:00 24 10/14/17 09:00 79 22 97/46 94 Mechanical Ventilator 100 Laboratory Tests 10/15/17 04:00: White Blood Count 12.9H, Red Blood Count 6.85H, Hemoglobin 12.7L, Hematocrit 45.6, Mean Corpuscular Volume 67L, Mean Corpuscular Hemoglobin 18.6L, Mean Corpuscular Hemoglobin Concent 27.9L, Red Cell Distribution Width 20.8H, Platelet Count 131#L, Mean Platelet Volume 10.8H, Neutrophils (%) (Auto) , Lymphocytes (%) (Auto) , Monocytes (%) (Auto) , Eosinophils (%) (Auto) , Basophils (%) (Auto) , Sodium Level 149H, Potassium Level 3.9, Chloride Level 108H, Carbon Dioxide Level 39H, Anion Gap 2L, Blood Urea Nitrogen 50H, Creatinine 2.2H, Estimat Glomerular Filtration Rate 33.3, Glucose Level 144H, Uric Acid 6.7, Calcium Level 8.8, Phosphorus Level 4.2, Magnesium Level 2.6H, Total Bilirubin 0.4, Gamma Glutamyl Transpeptidase 29, Aspartate Amino Transf ( AST/SGOT) 27, Alanine Aminotransferase (ALT/SGPT) 15, Alkaline Phosphatase 74, Troponin I 0.000, C-Reactive Protein, Quantitative 20.4H, Pro-B-Type Natriuretic Peptide 3075H, Total Protein 7.2, Albumin 1.8L, Globulin 5.4, Albumin/Globulin Ratio 0.3L Height (Feet): 5 Height (Inches): 4.00 Weight (Pounds): 356 General Appearance: other EENT: other - limited eval. as patient is sedatd and intubated Cardiovascular: normal rate Respiratory/Chest: lungs clear, rhonchi - bilaterally Abdomen: soft Extremities: other - limited eval. as patient is sedatd and intubated Neurologic: disoriented, other - limited eval. as patient is sedatd and intubated Skin: other - Diffuse psoriatic patches Nery Combs MD Oct 15, 2017 08:43
[2017-10-15] MEDS ORDERED: Albuterol/Ipratropium 3ml neb HHN PRN (08:45)
--- NOTE | 2017-10-15 09:00 | Pulmonolgy Critical Care Note ---
Critical Care - Asmt/Plan Problems: (1) ARDS (adult respiratory distress syndrome) (2) Acute respiratory failure (3) Cellulitis of scrotum (4) Respiratory distress (5) Pulmonary edema (6) Anasarca (7) scotal cellutis (8) Acute renal failure Assessment/Plan: -Continue ventilatory support ---> Despite patient body habitus his IBW is 127 lbs (57 kg) --> therefore, lung protective ventilation would dictate TV ~ 350- 400 -The following vent changes were made at the bedside by me: Dec TV to 400, Inc RR to 26, Dec PEEP to 10, Inc iTime to 1.05, Dec FiO2 to 90 -Plan was D/W RT & she will draw an ABG in 2 hours and call me with the results -Optimize pulmonary hygiene/mobilize as tolerated -Start RTC and PRN DUOnebs + NAC HHN's -Continue Abx per ID -Check a viral respiratory panel -Check autoimmune and atypical serologies -Would consider discontinuing D5W and repleting CH2O through NGT, 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 to keep on the ore storage drier side -Check a CT of the chest --> D/W RN and will attempt to take patient down on ventilator for CT -Will decide need for bronchoscopy vs surgical lung biopsy afterwards -May require transfer to a higher level of care ([facility] vs [facility]) and consideration of ECMO if he fails to improve -NGTF's as tolerated -DVT Px: Hep SQ -FC, continue to discuss GOC CC 90 Critical Care - Objective Last 24 Hour Vital Signs Date Time Temp Pulse Resp B/P (MAP) Pulse Ox O2 Delivery O2 Flow Rate FiO2 10/15/17 08:21 23 10/15/17 08:21 23 10/15/17 07:10 61 22 100 10/15/17 07:00 72 16 114/68 94 Mechanical Ventilator 100 10/15/17 07:00 20 10/15/17 06:30 85 22 100/60 96 Mechanical Ventilator 100 10/15/17 06:00 82 21 103/63 94 Mechanical Ventilator 100 10/15/17 06:00 21 10/15/17 05:30 62 22 100 10/15/17 05:30 63 20 91/72 95 Mechanical Ventilator 100 10/15/17 05:00 71 22 109/51 96 Mechanical Ventilator 100 10/15/17 05:00 22 12/18/17 04:30 87 22 111/65 94 Mechanical Ventilator 100 10/15/17 04:00 100 10/15/17 04:00 22 10/15/17 04:00 97.7 87 22 115/70 95 Mechanical Ventilator 100 10/15/17 03:31 86 10/15/17 03:30 84 22 133/76 94 Mechanical Ventilator 100 10/15/17 03:13 69 24 100 10/15/17 03:00 22 10/15/17 03:00 67 22 111/62 93 Mechanical Ventilator 100 10/15/17 02:30 73 22 108/58 95 Mechanical Ventilator 100 10/15/17 02:00 69 22 112/63 95 Mechanical Ventilator 100 10/15/17 02:00 22 10/15/17 01:30 78 23 122/64 95 Mechanical Ventilator 100 10/15/17 01:30 78 22 100 10/15/17 01:00 86 21 118/78 93 Mechanical Ventilator 100 10/15/17 01:00 28 10/15/17 00:30 86 25 125/74 92 Mechanical Ventilator 100 10/15/17 00:00 100 10/15/17 00:00 98.9 88 25 124/66 92 Mechanical Ventilator 100 10/15/17 00:00 25 10/14/17 23:30 84 26 100 10/14/17 23:30 86 25 121/69 92 Mechanical Ventilator 100 10/14/17 23:01 24 10/14/17 23:00 80 23 116/64 93 Mechanical Ventilator 100 10/14/17 23:00 23 10/14/17 22:59 80 10/14/17 22:30 73 23 112/65 93 Mechanical Ventilator 100 10/14/17 22:00 21 10/14/17 22:00 73 25 119/63 94 Mechanical Ventilator 100 10/14/17 21:30 60 21 100 10/14/17 21:30 103 21 129/74 93 Mechanical Ventilator 100 10/14/17 21:00 70 21 117/61 92 Mechanical Ventilator 100 10/14/17 21:00 21 10/14/17 20:30 64 22 113/68 95 Mechanical Ventilator 100 10/14/17 20:00 22 10/14/17 20:00 22 10/14/17 20:00 97.9 61 22 112/67 95 Mechanical Ventilator 100 10/14/17 20:00 100 10/14/17 19:30 65 22 115/63 95 Mechanical Ventilator 100 10/14/17 19:30 63 22 100 10/14/17 19:07 65 10/14/17 19:00 65 23 116/65 95 Mechanical Ventilator 100 10/14/17 19:00 22 10/14/17 19:00 22 10/14/17 18:30 68 26 108/62 95 Mechanical Ventilator 100 10/14/17 18:00 68 24 112/65 95 Mechanical Ventilator 100 10/14/17 18:00 24 10/14/17 18:00 24 10/14/17 17:30 74 26 94/61 94 Mechanical Ventilator 100 10/14/17 17:05 71 22 100 10/14/17 17:00 24 10/14/17 17:00 24 10/14/17 17:00 73 24 105/60 96 Mechanical Ventilator 100 10/14/17 16:30 85 26 121/64 95 Mechanical Ventilator 100 10/14/17 16:00 28 10/14/17 16:00 28 10/14/17 16:00 99.6 85 28 104/55 95 Mechanical Ventilator 100 10/14/17 16:00 100 10/14/17 15:30 30 10/14/17 15:30 30 10/14/17 15:30 88 30 106/60 95 Mechanical Ventilator 100 10/14/17 15:20 90 31 100 10/14/17 15:02 32 10/14/17 15:00 30 10/14/17 15:00 30 10/14/17 15:00 88 30 105/48 94 Mechanical Ventilator 100 10/14/17 14:30 87 30 108/58 95 Mechanical Ventilator 100 10/14/17 14:00 84 29 106/49 95 Mechanical Ventilator 100 10/14/17 14:00 29 10/14/17 14:00 29 10/14/17 13:30 84 25 112/53 95 Mechanical Ventilator 100 10/14/17 13:00 83 25 108/54 92 Mechanical Ventilator 100 10/14/17 13:00 26 10/14/17 13:00 26 10/14/17 12:38 83 28 100 10/14/17 12:30 74 25 103/56 94 Mechanical Ventilator 100 10/14/17 12:00 26 10/14/17 12:00 99.1 73 26 103/52 93 Mechanical Ventilator 100 10/14/17 12:00 73 10/14/17 12:00 100 10/14/17 11:30 78 27 110/55 93 Mechanical Ventilator 100 10/14/17 11:12 74 26 100 10/14/17 11:00 74 25 104/50 93 Mechanical Ventilator 100 10/14/17 11:00 25 10/14/17 10:30 74 25 106/53 93 Mechanical Ventilator 100 10/14/17 10:00 28 10/14/17 10:00 79 27 114/61 94 Mechanical Ventilator 100 10/14/17 09:30 89 25 119/61 93 Mechanical Ventilator 100 10/14/17 09:28 86 23 100 10/14/17 09:00 24 10/14/17 09:00 79 22 97/46 94 Mechanical Ventilator 100 Status: sedated, other - morbid obesity Condition: critical HEENT: atraumatic, normocephalic, other - ETT, NGT Lungs: rhonchi - scattered distant Heart: HR/BP stable Abdomen: soft, non-tender, active bowel sounds Extremities: no C/C/E Objective: Scrotal edema, erythema and warmth Accucheck: 128 Critical Care - Subjective ROS Limited/Unobtainable: Yes ICU Day: 9 Intubation Day: 9 Interval Events: Sedated on Fent/Versed, milagro TF's, FiO2 100%, mod thick secretions, AFVSS otherwise Condition: critical IV Access: PICC EKG Rhythm: Sinus Rhythm FI02: 100 Vent Support Breath Rate: 22 Vent Support Mode: AC Vent Tidal Volume: 550 Sputum Amount: Moderate PEEP: 16.0 PIP: 40 Secretions: moderate thick creamy Fluids: D5 Tube Feeding Amount: 40 CXR: Diffuse b interstitial and airspace opacities ET-Tube: 7.5 ET Position: 25 Labs: Laboratory Tests Test 10/15/17 04:00 White Blood Count 12.9 K/UL (4.8-10.8) H Red Blood Count 6.85 M/UL (4.70-6.10) H Hemoglobin 12.7 G/DL (14.2-18.0) L Hematocrit 45.6 % (42.0-52.0) Mean Corpuscular Volume 67 FL (80-99) L Mean Corpuscular Hemoglobin 18.6 PG (27.0-31.0) L Mean Corpuscular Hemoglobin Concent 27.9 G/DL (32.0-36.0) L Red Cell Distribution Width 20.8 % (11.6-14.8) H Platelet Count 131 K/UL (150-450) #L Mean Platelet Volume 10.8 FL (6.5-10.1) H Neutrophils (%) (Auto) % (45.0-75.0) Lymphocytes (%) (Auto) % (20.0-45.0) Monocytes (%) (Auto) % (1.0-10.0) Eosinophils (%) (Auto) % (0.0-3.0) Basophils (%) (Auto) % (0.0-2.0) Sodium Level 149 MMOL/L (136-145) H Potassium Level 3.9 MMOL/L (3.5-5.1) Chloride Level 108 MMOL/L (98-107) H Carbon Dioxide Level 39 MMOL/L (21-32) H Anion Gap 2 mmol/L (5-15) L Blood Urea Nitrogen 50 mg/dL (7-18) H Creatinine 2.2 MG/DL (0.55-1.30) H Estimat Glomerular Filtration Rate 33.3 mL/min (>60) Glucose Level 144 MG/DL (74-106) H Uric Acid 6.7 MG/DL (2.6-7.2) Calcium Level 8.8 MG/DL (8.5-10.1) Phosphorus Level 4.2 MG/DL (2.5-4.9) Magnesium Level 2.6 MG/DL (1.8-2.4) H Total Bilirubin 0.4 MG/DL (0.2-1.0) Gamma Glutamyl Transpeptidase 29 U/L (5-85) Aspartate Amino Transf (AST/SGOT) 27 U/L (15-37) Alanine Aminotransferase (ALT/SGPT) 15 U/L (12-78) Alkaline Phosphatase 74 U/L (46-116) Troponin I 0.000 ng/mL (0.000-0.056) C-Reactive Protein, Quantitative 20.4 mg/dL (0.00-0.90) H Pro-B-Type Natriuretic Peptide 3075 pg/mL (0-125) H Total Protein 7.2 G/DL (6.4-8.2) Albumin 1.8 G/DL (3.4-5.0) L Globulin 5.4 g/dL Albumin/Globulin Ratio 0.3 (1.0-2.7) L ASHVIN LOVE M.D. Oct 15, 2017 09:00
--- NOTE | 2017-10-15 12:18 | Infectious Diseases Prog Note ---
Assessment/Plan Assessment/Plan ASSESSMENT: The patient is a 42-year-old male with, Leukocytosis improving Fever low grade , SP Possible aspiration pneumonia versus community-acquired pneumonia. Scx : P mirabilis , 10/13 C-Xray worsening of infiltrate vs edema Probable scrotal cellulitis versus discoloration of genitalia due to edema. ARDS CORA PICC 10/09 VDRF Congestive heart failure. PLAN: Cont pt on vancomycin and Doxy d# 8 / 10 , add Merrem d# 3( pt is getting worse ) 10/13 sp Zosyn d# 5 Monitor CBC. Monitor BMP. Monitor cultures ( SP) Continue vent support. Monitor chest x-ray Fungal serology ordered by Pul HIV Subjective Constitutional: Denies: no symptoms, fever, chills, fatigue, anorexia, drenching sweats, other Allergies: Coded Allergies: No Known Allergies (Unverified , 10/06/17) Subjective on Vent FIO2 90 Objective Vital Signs Last 24 Hour Vital Signs Date Time Temp Pulse Resp B/P (MAP) Pulse Ox O2 Delivery O2 Flow Rate FiO2 10/15/17 09:30 86 102/59 94 Mechanical Ventilator 90 10/15/17 09:25 86 28 100 10/15/17 09:00 77 25 106/65 96 Mechanical Ventilator 90 10/15/17 09:00 25 10/15/17 09:00 25 10/15/17 08:45 90 10/15/17 08:30 78 22 109/62 97 Mechanical Ventilator 100 10/15/17 08:21 23 10/15/17 08:21 23 10/15/17 08:00 98.9 64 22 105/38 92 Mechanical Ventilator 100 10/15/17 08:00 100 10/15/17 08:00 76 10/15/17 08:00 22 10/15/17 07:30 63 22 105/60 95 Mechanical Ventilator 100 10/15/17 07:10 61 22 100 10/15/17 07:00 72 16 114/68 94 Mechanical Ventilator 100 10/15/17 07:00 20 10/15/17 06:30 85 22 100/60 96 Mechanical Ventilator 100 10/15/17 06:00 82 21 103/63 94 Mechanical Ventilator 100 10/15/17 06:00 21 10/15/17 05:30 62 22 100 10/15/17 05:30 63 20 91/72 95 Mechanical Ventilator 100 10/15/17 05:00 71 22 109/51 96 Mechanical Ventilator 100 10/15/17 05:00 22 10/15/17 04:30 87 22 111/65 94 Mechanical Ventilator 100 10/15/17 04:00 100 10/15/17 04:00 22 10/15/17 04:00 97.7 87 22 115/70 95 Mechanical Ventilator 100 10/15/17 03:31 86 10/15/17 03:30 84 22 133/76 94 Mechanical Ventilator 100 10/15/17 03:13 69 24 100 10/15/17 03:00 22 10/15/17 03:00 67 22 111/62 93 Mechanical Ventilator 100 10/15/17 02:30 73 22 108/58 95 Mechanical Ventilator 100 10/15/17 02:00 69 22 112/63 95 Mechanical Ventilator 100 10/15/17 02:00 22 10/15/17 01:30 78 23 122/64 95 Mechanical Ventilator 100 10/15/17 01:30 78 22 100 10/15/17 01:00 86 21 118/78 93 Mechanical Ventilator 100 10/15/17 01:00 28 10/15/17 00:30 86 25 125/74 92 Mechanical Ventilator 100 10/15/17 00:00 100 10/15/17 00:00 98.9 88 25 124/66 92 Mechanical Ventilator 100 10/15/17 00:00 25 10/14/17 23:30 84 26 100 10/14/17 23:30 86 25 121/69 92 Mechanical Ventilator 100 10/14/17 23:01 24 10/14/17 23:00 80 23 116/64 93 Mechanical Ventilator 100 10/14/17 23:00 23 10/14/17 22:59 80 10/14/17 22:30 73 23 112/65 93 Mechanical Ventilator 100 10/14/17 22:00 21 10/14/17 22:00 73 25 119/63 94 Mechanical Ventilator 100 10/14/17 21:30 60 21 100 10/14/17 21:30 103 21 129/74 93 Mechanical Ventilator 100 10/14/17 21:00 70 21 117/61 92 Mechanical Ventilator 100 10/14/17 21:00 21 10/14/17 20:30 64 22 113/68 95 Mechanical Ventilator 100 10/14/17 20:00 22 10/14/17 20:00 22 10/14/17 20:00 97.9 61 22 112/67 95 Mechanical Ventilator 100 10/14/17 20:00 100 10/14/17 19:30 65 22 115/63 95 Mechanical Ventilator 100 10/14/17 19:30 63 22 100 10/14/17 19:07 65 10/14/17 19:00 65 23 116/65 95 Mechanical Ventilator 100 10/14/17 19:00 22 10/14/17 19:00 22 10/14/17 18:30 68 26 108/62 95 Mechanical Ventilator 100 10/14/17 18:00 68 24 112/65 95 Mechanical Ventilator 100 10/14/17 18:00 24 10/14/17 18:00 24 10/14/17 17:30 74 26 94/61 94 Mechanical Ventilator 100 10/14/17 17:05 71 22 100 10/14/17 17:00 24 10/14/17 17:00 24 10/14/17 17:00 73 24 105/60 96 Mechanical Ventilator 100 10/14/17 16:30 85 26 121/64 95 Mechanical Ventilator 100 10/14/17 16:00 28 10/14/17 16:00 28 10/14/17 16:00 99.6 85 28 104/55 95 Mechanical Ventilator 100 10/14/17 16:00 100 10/14/17 15:30 30 10/14/17 15:30 30 10/14/17 15:30 88 30 106/60 95 Mechanical Ventilator 100 10/14/17 15:20 90 31 100 10/14/17 15:02 32 10/14/17 15:00 30 10/14/17 15:00 30 10/14/17 15:00 88 30 105/48 94 Mechanical Ventilator 100 10/14/17 14:30 87 30 108/58 95 Mechanical Ventilator 100 10/14/17 14:00 84 29 106/49 95 Mechanical Ventilator 100 10/14/17 14:00 29 10/14/17 14:00 29 10/14/17 13:30 84 25 112/53 95 Mechanical Ventilator 100 10/14/17 13:00 83 25 108/54 92 Mechanical Ventilator 100 10/14/17 13:00 26 10/14/17 13:00 26 10/14/17 12:38 83 28 100 10/14/17 12:30 74 25 103/56 94 Mechanical Ventilator 100 Height (Feet): 5 Height (Inches): 4.00 Weight (Pounds): 356 HEENT: anicteric Respiratory/Chest: normal breath sounds Cardiovascular: normal rate Abdomen: no organomegaly Laboratory Tests Test 10/15/17 04:00 10/15/17 08:00 10/15/17 11:00 White Blood Count 12.9 K/UL (4.8-10.8) H Red Blood Count 6.85 M/UL (4.70-6.10) H Hemoglobin 12.7 G/DL (14.2-18.0) L Hematocrit 45.6 % (42.0-52.0) Mean Corpuscular Volume 67 FL (80-99) L Mean Corpuscular Hemoglobin 18.6 PG (27.0-31.0) L Mean Corpuscular Hemoglobin Concent 27.9 G/DL (32.0-36.0) L Red Cell Distribution Width 20.8 % (11.6-14.8) H Platelet Count 131 K/UL (150-450) #L Mean Platelet Volume 10.8 FL (6.5-10.1) H Neutrophils (%) (Auto) % (45.0-75.0) Lymphocytes (%) (Auto) % (20.0-45.0) Monocytes (%) (Auto) % (1.0-10.0) Eosinophils (%) (Auto) % (0.0-3.0) Basophils (%) (Auto) % (0.0-2.0) Sodium Level 149 MMOL/L (136-145) H Potassium Level 3.9 MMOL/L (3.5-5.1) Chloride Level 108 MMOL/L (98-107) H Carbon Dioxide Level 39 MMOL/L (21-32) H Anion Gap 2 mmol/L (5-15) L Blood Urea Nitrogen 50 mg/dL (7-18) H Creatinine 2.2 MG/DL (0.55-1.30) H Estimat Glomerular Filtration Rate 33.3 mL/min (>60) Glucose Level 144 MG/DL (74-106) H Uric Acid 6.7 MG/DL (2.6-7.2) Calcium Level 8.8 MG/DL (8.5-10.1) Phosphorus Level 4.2 MG/DL (2.5-4.9) Magnesium Level 2.6 MG/DL (1.8-2.4) H Total Bilirubin 0.4 MG/DL (0.2-1.0) Gamma Glutamyl Transpeptidase 29 U/L (5-85) Aspartate Amino Transf (AST/SGOT) 27 U/L (15-37) Alanine Aminotransferase (ALT/SGPT) 15 U/L (12-78) Alkaline Phosphatase 74 U/L (46-116) Troponin I 0.000 ng/mL (0.000-0.056) C-Reactive Protein, Quantitative 20.4 mg/dL (0.00-0.90) H Pro-B-Type Natriuretic Peptide 3075 pg/mL (0-125) H Total Protein 7.2 G/DL (6.4-8.2) Albumin 1.8 G/DL (3.4-5.0) L Globulin 5.4 g/dL Albumin/Globulin Ratio 0.3 (1.0-2.7) L Aspergillus flavus Antibody Pending Aspergillus fumigatus Antibody Pending Aspergillus niger Antibody Pending Erythrocyte Sedimentation Rate 13 MM/HR (0-15) Arterial Blood pH 7.252 (7.350-7.450) Arterial Blood Partial Pressure CO2 101.0 mmHg (35.0-45.0) *H Arterial Blood Partial Pressure O2 77.9 mmHg (75.0-100.0) Arterial Blood HCO3 43.5 mmol/L (22.0-26.0) H Arterial Blood Oxygen Saturation 93.6 % (92.0-98.0) Arterial Blood Base Excess 12.2 Naif Test Positive Current Medications Medications (Trade) Dose Ordered Sig/Prince Route PRN Reason Start Time Stop Time Status Last Admin Dose Admin Acetaminophen (Tylenol) 650 mg EVERY 4 HOURS PRN NG Mild Pain/Temp > 100.5 10/09/17 10:15 11/08/17 10:14 10/14/17 00:40 Acetylcysteine (Mucomyst) 200 mg Q6HRT HHN 10/15/17 13:00 11/14/17 12:59 Albuterol/ Ipratropium (Albuterol/ Ipratropium) 3 ml Q4H PRN HHN Shortness of Breath 10/15/17 08:45 10/20/17 08:44 Albuterol/ Ipratropium (Albuterol/ Ipratropium) 3 ml Q6HRT HHN 10/15/17 13:00 10/20/17 12:59 Chlorhexidine Gluconate (Sol-Hex 2%) 1 applic DAILY@2000 TOPIC 10/09/17 20:00 11/08/17 19:59 10/14/17 19:35 Dextrose 1,000 ml @ 75 mls/hr [id number] IV 10/14/17 12:00 11/13/17 11:59 10/15/17 01:05 Dextrose (Dextrose 50%) STAT PRN IV Hypoglycemia 10/12/17 11:00 11/11/17 10:59 Docusate Sodium (Colace) 100 mg BID GT 10/13/17 17:00 11/12/17 16:59 10/15/17 08:21 Doxycycline Monohydrate (Vibramycin) 100 mg Q12HR@0600,1800 GT 10/08/17 16:30 10/18/17 16:29 10/15/17 05:57 Fentanyl Citrate 1000 mcg/Sodium Chloride 100 ml @ 0 mls/hr Q24H IV 10/14/17 19:00 10/21/17 18:59 10/15/17 08:21 Haloperidol Lactate 5 mg/ Dextrose 56 ml @ 224 mls/hr Q1H PRN IVPB BREAKTHROUGH AGITATION 10/08/17 17:00 11/07/17 16:59 10/09/17 07:12 Heparin Sodium (Porcine) (Heparin 5000 units/ml) 5,000 units DAILY SUBQ 10/08/17 11:00 11/07/17 10:59 10/15/17 08:29 Hydrocortisone (Solu-CORTEF) 100 mg EVERY 8 HOURS IV 10/13/17 14:00 11/12/17 13:59 10/15/17 05:57 Insulin Aspart (NovoLOG) BEFORE MEALS AND HS SUBQ 10/12/17 11:30 11/11/17 11:29 10/15/17 06:04 Lorazepam (Ativan 2mg/ml 1ml) 2 mg Q4H PRN IV For Anxiety 10/14/17 14:00 10/21/17 13:59 10/14/17 21:39 Magnesium Hydroxide (Mom) 30 ml DAILYPRN PRN GT Constipation 10/13/17 16:30 11/12/17 16:29 10/14/17 21:39 Meropenem 1 gm/ Sodium Chloride 55 ml @ 110 mls/hr Q12HR@0400,1600 IVPB 10/13/17 16:00 10/18/17 15:59 10/15/17 03:31 Midazolam HCl 100 ml @ 0 mls/hr Q24H PRN IVPB To Patient Comfort 10/15/17 08:00 10/22/17 07:59 10/15/17 08:21 Pantoprazole (Protonix) 40 mg DAILY IV 10/07/17 11:00 11/06/17 10:59 10/15/17 08:22 Vancomycin HCl (Vanco rx to dose) 1 ea DAILY PRN MISC PER RX PROTOCOL 10/07/17 11:00 11/06/17 10:59 Vancomycin HCl/ Dextrose 250 ml @ 166.667 mls/hr Q24H IVPB 10/13/17 16:00 10/18/17 15:59 10/14/17 17:22 CATALINA PARRA M.D. Oct 15, 2017 12:18
--- NOTE | 2017-10-15 13:43 | Diagnostic Imaging Report ---
Indication: Dyspnea Comparison: 10/14/2017 A single view chest radiograph was obtained. Findings: Similar findings with fairly extensive central pulmonary edema with air bronchograms, cardiomegaly. Tubes and lines are stable. IMPRESSION: Severe pulmonary edema relatively unchanged
[2017-10-15] MEDS: Acetylcysteine 20% Soln 4ml HHN SCH ×2 (14:35→20:15)
[2017-10-15] MEDS: Albuterol/Ipratropium 3ml neb HHN SCH ×2 (14:35→20:15)
--- NOTE | 2017-10-15 15:36 | Nephrology Progress Note ---
Assessment/Plan Problem List: (1) Acute respiratory failure (2) Acute renal failure Assessment: with previous urinary out let obstruction Assessment Acute renal failure- Cr same and declining Acute Respiratory distress , ? aspiration pneumonia, intubated ARDS Acute Pulmonary edema Anasarca scotal cellutis Morbid obesity. Thrombocytopenia. Abnormal blood sugar. Anemia. Plan Plan: trial steroids K and Mag supplement as needed Keep BP in check pulm support avoid nephrotoxics monitor renal parameters per consultants / pulmonary per orders Left ventricular ejection fraction estimated to be grossly normal. Mild left ventricular hypertrophy. Subjective ROS Limited/Unobtainable: Yes Objective Objective Last 24 Hour Vital Signs Date Time Temp Pulse Resp B/P (MAP) Pulse Ox O2 Delivery O2 Flow Rate FiO2 10/15/17 15:00 30 10/15/17 15:00 30 10/15/17 15:00 85 30 114/63 90 Mechanical Ventilator 90 10/15/17 14:50 74 30 94 Mechanical Ventilator 10/15/17 14:41 76 30 90 10/15/17 14:35 79 30 95 Mechanical Ventilator 10/15/17 14:30 76 30 121/61 96 Mechanical Ventilator 90 10/15/17 14:00 30 10/15/17 14:00 30 10/15/17 14:00 89 30 120/63 93 Mechanical Ventilator 90 10/15/17 13:30 82 27 131/74 92 Mechanical Ventilator 90 10/15/17 13:00 79 30 90 10/15/17 13:00 28 10/15/17 13:00 28 10/15/17 13:00 88 28 122/76 94 Mechanical Ventilator 90 10/15/17 12:30 95 29 138/81 91 Mechanical Ventilator 90 10/15/17 12:00 90 10/15/17 12:00 30 10/15/17 12:00 30 10/15/17 12:00 98.8 92 30 136/83 92 Mechanical Ventilator 90 10/15/17 12:00 104 10/15/17 11:40 93 30 90 10/15/17 11:30 115 26 134/86 88 Mechanical Ventilator 90 10/15/17 11:15 85 28 90 10/15/17 11:00 23 10/15/17 11:00 23 10/15/17 11:00 91 23 113/61 93 Mechanical Ventilator 90 10/15/17 10:30 90 24 108/55 93 Mechanical Ventilator 90 10/15/17 10:00 88 27 102/56 94 Mechanical Ventilator 90 10/15/17 10:00 27 10/15/17 10:00 27 10/15/17 09:30 86 102/59 94 Mechanical Ventilator 90 10/15/17 09:25 86 28 90 10/15/17 09:00 77 25 106/65 96 Mechanical Ventilator 90 10/15/17 09:00 25 10/15/17 09:00 25 10/15/17 08:45 90 10/15/17 08:30 78 22 109/62 97 Mechanical Ventilator 100 10/15/17 08:21 23 10/15/17 08:21 23 10/15/17 08:00 98.9 64 22 105/38 92 Mechanical Ventilator 100 10/15/17 08:00 100 10/15/17 08:00 76 10/15/17 08:00 22 10/15/17 07:30 63 22 105/60 95 Mechanical Ventilator 100 10/15/17 07:10 61 22 100 10/15/17 07:00 72 16 114/68 94 Mechanical Ventilator 100 10/15/17 07:00 20 10/15/17 06:30 85 22 100/60 96 Mechanical Ventilator 100 10/15/17 06:00 82 21 103/63 94 Mechanical Ventilator 100 10/15/17 06:00 21 10/15/17 05:30 62 22 100 10/15/17 05:30 63 20 91/72 95 Mechanical Ventilator 100 10/15/17 05:00 71 22 109/51 96 Mechanical Ventilator 100 10/15/17 05:00 22 10/15/17 04:30 87 22 111/65 94 Mechanical Ventilator 100 10/15/17 04:00 100 10/15/17 04:00 22 10/15/17 04:00 97.7 87 22 115/70 95 Mechanical Ventilator 100 10/15/17 03:31 86 10/15/17 03:30 84 22 133/76 94 Mechanical Ventilator 100 10/15/17 03:13 69 24 100 10/15/17 03:00 22 10/15/17 03:00 67 22 111/62 93 Mechanical Ventilator 100 10/15/17 02:30 73 22 108/58 95 Mechanical Ventilator 100 10/15/17 02:00 69 22 112/63 95 Mechanical Ventilator 100 10/15/17 02:00 22 10/15/17 01:30 78 23 122/64 95 Mechanical Ventilator 100 10/15/17 01:30 78 22 100 10/15/17 01:00 86 21 118/78 93 Mechanical Ventilator 100 10/15/17 01:00 28 10/15/17 00:30 86 25 125/74 92 Mechanical Ventilator 100 10/15/17 00:00 100 10/15/17 00:00 98.9 88 25 124/66 92 Mechanical Ventilator 100 10/15/17 00:00 25 10/14/17 23:30 84 26 100 10/14/17 23:30 86 25 121/69 92 Mechanical Ventilator 100 10/14/17 23:01 24 10/14/17 23:00 80 23 116/64 93 Mechanical Ventilator 100 10/14/17 23:00 23 10/14/17 22:59 80 10/14/17 22:30 73 23 112/65 93 Mechanical Ventilator 100 10/14/17 22:00 21 10/14/17 22:00 73 25 119/63 94 Mechanical Ventilator 100 10/14/17 21:30 60 21 100 10/14/17 21:30 103 21 129/74 93 Mechanical Ventilator 100 10/14/17 21:00 70 21 117/61 92 Mechanical Ventilator 100 10/14/17 21:00 21 10/14/17 20:30 64 22 113/68 95 Mechanical Ventilator 100 10/14/17 20:00 22 10/14/17 20:00 22 10/14/17 20:00 97.9 61 22 112/67 95 Mechanical Ventilator 100 10/14/17 20:00 100 10/14/17 19:30 65 22 115/63 95 Mechanical Ventilator 100 10/14/17 19:30 63 22 100 10/14/17 19:07 65 10/14/17 19:00 65 23 116/65 95 Mechanical Ventilator 100 10/14/17 19:00 22 10/14/17 19:00 22 10/14/17 18:30 68 26 108/62 95 Mechanical Ventilator 100 10/14/17 18:00 68 24 112/65 95 Mechanical Ventilator 100 10/14/17 18:00 24 10/14/17 18:00 24 10/14/17 17:30 74 26 94/61 94 Mechanical Ventilator 100 10/14/17 17:05 71 22 100 10/14/17 17:00 24 10/14/17 17:00 24 10/14/17 17:00 73 24 105/60 96 Mechanical Ventilator 100 10/14/17 16:30 85 26 121/64 95 Mechanical Ventilator 100 10/14/17 16:00 28 10/14/17 16:00 28 10/14/17 16:00 99.6 85 28 104/55 95 Mechanical Ventilator 100 10/14/17 16:00 100 Intake and Output 10/15/17 10/16/17 19:00 07:00 Intake Total 1135.5 ml Output Total 415 ml Balance 720.5 ml IV Total 745.5 ml Tube Feeding 280 ml Other 110 ml Output Urine Total 415 ml Laboratory Tests 10/15/17 04:00: White Blood Count 12.9H, Red Blood Count 6.85H, Hemoglobin 12.7L, Hematocrit 45.6, Mean Corpuscular Volume 67L, Mean Corpuscular Hemoglobin 18.6L, Mean Corpuscular Hemoglobin Concent 27.9L, Red Cell Distribution Width 20.8H, Platelet Count 131#L, Mean Platelet Volume 10.8H, Neutrophils (%) (Auto) , Lymphocytes (%) (Auto) , Monocytes (%) (Auto) , Eosinophils (%) (Auto) , Basophils (%) (Auto) , Sodium Level 149H, Potassium Level 3.9, Chloride Level 108H, Carbon Dioxide Level 39H, Anion Gap 2L, Blood Urea Nitrogen 50H, Creatinine 2.2H, Estimat Glomerular Filtration Rate 33.3, Glucose Level 144H, Uric Acid 6.7, Calcium Level 8.8, Phosphorus Level 4.2, Magnesium Level 2.6H, Total Bilirubin 0.4, Gamma Glutamyl Transpeptidase 29, Aspartate Amino Transf ( AST/SGOT) 27, Alanine Aminotransferase (ALT/SGPT) 15, Alkaline Phosphatase 74, Troponin I 0.000, C-Reactive Protein, Quantitative 20.4H, Pro-B-Type Natriuretic Peptide 3075H, Total Protein 7.2, Albumin 1.8L, Globulin 5.4, Albumin/Globulin Ratio 0.3L, HIV (1&2) Antibody Rapid Negative, Aspergillus flavus Antibody [Pending], Aspergillus fumigatus Antibody [Pending], Aspergillus niger Antibody [Pending] 10/15/17 08:00: Erythrocyte Sedimentation Rate 13 10/15/17 11:00: Arterial Blood pH 7.252L, Arterial Blood Partial Pressure CO2 101.0*H, Arterial Blood Partial Pressure O2 77.9, Arterial Blood HCO3 43.5H, Arterial Blood Oxygen Saturation 93.6, Arterial Blood Base Excess 12.2, Naif Test Positive 10/15/17 12:34: Coccidioides Antibody (Comp Fix) [Pending], Cryptococcus Antigen [Pending] Height (Feet): 5 Height (Inches): 4.00 Weight (Pounds): 356 General Appearance: no apparent distress Cardiovascular: normal rate Respiratory/Chest: decreased breath sounds Abdomen: soft Objective no other change JAY YANCEY Oct 15, 2017 15:36
[2017-10-15] MEDS: Vancomycin 1250mg/D5W 250ml IVPB SCH (16:29)
[2017-10-15] MEDS: LORazepam Inj 2mg/ml 1ml IV PRN (20:27)
[2017-10-15] MEDS: Dyna-Hex 2% Top Sol 2oz TOPIC SCH (20:27)
[2017-10-16] VITALS (48 sets, daily range): BP systolic 111–148; BP diastolic 46–82
[2017-10-16] MEDS ORDERED: Haloperidol 5mg/ml Inj ONE (00:03)
[2017-10-16] MEDS: Haloperidol Lactate 5 MG in D5W 55 ML IVPB PRN (00:05)
[2017-10-16] MEDS: Albuterol/Ipratropium 3ml neb HHN SCH ×4 (01:26→20:02)
[2017-10-16] MEDS: Acetylcysteine 20% Soln 4ml HHN SCH ×4 (01:26→20:02)
[2017-10-16] MEDS: LORazepam Inj 2mg/ml 1ml IV PRN ×2 (03:43→13:57)
[2017-10-16] MEDS: Meropenem 1 GM in NS 55 ML IVPB SCH ×2 (04:07→15:34)
[2017-10-16] MEDS: Vancomycin 1gm in D5W 275ml IVPB SCH ×2 (04:07→16:46)
[2017-10-16] MEDS: Hydrocortisone 100mg Inj IV SCH (06:23)
[2017-10-16] MEDS: NovoLOG Insulin Flexpen SUBQ SCH ×4 (06:33→20:40)
[2017-10-16] MEDS: Midazolam/D5W 100ml 100 ML IVPB PRN ×3 (06:39→18:50)
--- NOTE | 2017-10-16 08:14 | General Progress Note ---
Assessment/Plan Status: unchanged Assessment/Plan 1. VDRF 2. ARDS-Hypoxemic respiratory failure. 3.Sepsis: Aspiration Gram negative HCA-PNA 4. Gram negative HCA-PNA 5. Cellulitis of the scrotal area. 6. Morbid obesity. 7. ARF 8. Obstructive uropathy 9. Thrombocytopenia. 10. DM-2 11. Anemia. 12. Gastrointestinal and deep vein thrombosis prophylaxes. 13. Psoriasis PLAN OF CARE: NOtes from Infectious Diseases Dr. Pineda, Nephrology, Dr Urrutia, pulmonary Dr Steinberg reviewed Poor Prognosis Subjective ROS Limited/Unobtainable: Yes Allergies: Coded Allergies: No Known Allergies (Unverified , 10/06/17) Objective Last 24 Hour Vital Signs Date Time Temp Pulse Resp B/P (MAP) Pulse Ox O2 Delivery O2 Flow Rate FiO2 10/16/17 07:56 96 31 87 Mechanical Ventilator 10/16/17 07:21 81 30 94 Mechanical Ventilator 90 10/16/17 07:14 85 33 90 10/16/17 07:00 91 28 119/70 93 Mechanical Ventilator 100 10/16/17 06:39 33 10/16/17 06:30 80 30 128/68 96 Mechanical Ventilator 100 10/16/17 06:00 86 30 132/68 96 Mechanical Ventilator 100 10/16/17 05:36 92 30 90 10/16/17 05:30 98 29 140/82 93 Mechanical Ventilator 100 10/16/17 05:00 100 29 140/82 93 Mechanical Ventilator 100 10/16/17 04:30 107 29 137/65 93 Mechanical Ventilator 100 10/16/17 04:00 92 10/16/17 04:00 92 10/16/17 04:00 100 10/16/17 04:00 98.6 91 28 119/70 93 Mechanical Ventilator 100 10/16/17 03:30 91 30 119/70 92 Mechanical Ventilator 100 10/16/17 03:30 91 28 119/70 93 Mechanical Ventilator 100 10/16/17 03:00 75 30 112/63 92 Mechanical Ventilator 100 10/16/17 03:00 75 28 112/63 94 Mechanical Ventilator 100 10/16/17 02:45 76 30 90 10/16/17 02:30 75 26 111/62 93 Mechanical Ventilator 100 10/16/17 02:30 75 30 111/62 92 Mechanical Ventilator 100 10/16/17 02:00 77 28 115/62 94 Mechanical Ventilator 100 10/16/17 02:00 77 30 115/62 92 Mechanical Ventilator 100 10/16/17 01:37 98 30 92 Mechanical Ventilator 10/16/17 01:30 77 30 113/62 92 Mechanical Ventilator 100 10/16/17 01:30 77 30 113/62 95 Mechanical Ventilator 100 10/16/17 01:27 75 30 90 Mechanical Ventilator 10/16/17 01:26 75 30 90 10/16/17 01:00 72 30 112/68 94 Mechanical Ventilator 100 10/16/17 00:30 79 29 130/72 94 Mechanical Ventilator 100 10/16/17 00:11 31 10/16/17 00:00 89 10/16/17 00:00 98.6 85 30 126/71 95 Mechanical Ventilator 100 10/16/17 00:00 90 10/15/17 23:52 86 30 90 10/15/17 23:00 72 30 120/66 95 Mechanical Ventilator 100 10/15/17 22:30 72 30 116/58 95 Mechanical Ventilator 90 10/15/17 22:00 72 30 114/56 91 Mechanical Ventilator 90 10/15/17 21:30 75 30 116/60 93 Mechanical Ventilator 90 10/15/17 21:00 83 30 114/54 94 Mechanical Ventilator 90 10/15/17 20:35 105 31 90 10/15/17 20:35 111 30 92 Mechanical Ventilator 10/15/17 20:30 86 30 131/71 94 Mechanical Ventilator 90 10/15/17 20:19 75 32 92 Mechanical Ventilator 10/15/17 20:15 74 31 90 1817 20:00 86 10/15/17 20:00 99.0 77 30 114/62 92 Mechanical Ventilator 90 1817 20:00 30 1817 20:00 23 1817 20:00 90 1817 19:03 30 1817 19:00 27 1817 19:00 28 1817 19:00 97 27 140/83 92 Mechanical Ventilator 90 1817 18:30 99 27 129/76 90 Mechanical Ventilator 90 18/17 18:00 30 18/17 18:00 30 1817 18:00 74 30 121/65 88 Mechanical Ventilator 90 10/15/17 17:30 75 30 119/67 88 Mechanical Ventilator 90 10/15/17 17:06 73 30 90 10/15/17 17:00 83 30 118/64 89 Mechanical Ventilator 90 10/15/17 17:00 30 10/15/17 17:00 30 17 16:30 89 30 118/66 88 Mechanical Ventilator 90 10/15/17 16:00 90 10/15/17 16:00 85 10/15/17 16:00 30 10/15/17 16:00 30 10/15/17 16:00 98.7 86 30 116/64 89 Mechanical Ventilator 90 10/15/17 15:59 30 10/15/17 15:30 84 30 119/65 88 Mechanical Ventilator 90 10/15/17 15:00 30 10/15/17 15:00 30 10/15/17 15:00 85 30 114/63 90 Mechanical Ventilator 90 10/15/17 14:50 74 30 94 Mechanical Ventilator 10/15/17 14:41 76 30 90 10/15/17 14:35 79 30 95 Mechanical Ventilator 10/15/17 14:30 76 30 121/61 96 Mechanical Ventilator 90 10/15/17 14:00 30 10/15/17 14:00 30 10/15/17 14:00 89 30 120/63 93 Mechanical Ventilator 90 10/15/17 13:30 82 27 131/74 92 Mechanical Ventilator 90 10/15/17 13:00 79 30 90 10/15/17 13:00 28 10/15/17 13:00 28 10/15/17 13:00 88 28 122/76 94 Mechanical Ventilator 90 10/15/17 12:30 95 29 138/81 91 Mechanical Ventilator 90 10/15/17 12:00 90 10/15/17 12:00 30 10/15/17 12:00 30 10/15/17 12:00 98.8 92 30 136/83 92 Mechanical Ventilator 90 10/15/17 12:00 104 10/15/17 11:40 93 30 90 10/15/17 11:30 115 26 134/86 88 Mechanical Ventilator 90 10/15/17 11:15 85 28 90 10/15/17 11:00 23 10/15/17 11:00 23 10/15/17 11:00 91 23 113/61 93 Mechanical Ventilator 90 10/15/17 10:30 90 24 108/55 93 Mechanical Ventilator 90 10/15/17 10:00 88 27 102/56 94 Mechanical Ventilator 90 10/15/17 10:00 27 10/15/17 10:00 27 10/15/17 09:30 86 24 102/59 94 Mechanical Ventilator 90 10/15/17 09:25 86 28 90 10/15/17 09:00 77 25 106/65 96 Mechanical Ventilator 90 10/15/17 09:00 25 10/15/17 09:00 25 10/15/17 08:45 90 10/15/17 08:30 78 22 109/62 97 Mechanical Ventilator 100 10/15/17 08:21 23 10/15/17 08:21 23 Laboratory Tests 10/15/17 11:00: Arterial Blood pH 7.252L, Arterial Blood Partial Pressure CO2 101.0*H, Arterial Blood Partial Pressure O2 77.9, Arterial Blood HCO3 43.5H, Arterial Blood Oxygen Saturation 93.6, Arterial Blood Base Excess 12.2, Naif Test Positive 10/15/17 12:34: Coccidioides Antibody (Comp Fix) [Pending], Cryptococcus Antigen [Pending] 10/15/17 12:45: Histoplasma Antigen [Pending] 10/15/17 14:15: Arterial Blood pH 7.322L, Arterial Blood Partial Pressure CO2 80.1*H, Arterial Blood Partial Pressure O2 65.7L, Arterial Blood HCO3 40.5H, Arterial Blood Oxygen Saturation 91.9L, Arterial Blood Base Excess 11.3, Naif Test Positive 10/15/17 15:33: Vancomycin Level Trough 8.8 Height (Feet): 5 Height (Inches): 4.00 Weight (Pounds): 356 General Appearance: no apparent distress EENT: other - intubated. limited exam Neck: supple Cardiovascular: normal rate Respiratory/Chest: rhonchi - bilaterally Abdomen: other - intubated. limited exam Extremities: other - intubated. limited exam. stable plaques of psoriasis are noted Neurologic: other - intubated. limited exam Nery Combs MD Oct 16, 2017 08:14
[2017-10-16] MEDS: Docusate 100mg/10ml Liq GT SCH ×2 (08:41→17:33)
[2017-10-16] MEDS: Pantoprazole Inj IV SCH (08:42)
[2017-10-16] MEDS: Heparin 5000 units/ml inj SUBQ SCH (09:06)
--- NOTE | 2017-10-16 09:15 | Pulmonolgy Critical Care Note ---
Critical Care - Asmt/Plan Problems: (1) ARDS (adult respiratory distress syndrome) (2) Acute respiratory failure (3) Cellulitis of scrotum (4) Respiratory distress (5) Pulmonary edema (6) Anasarca (7) scotal cellutis (8) Acute renal failure Assessment/Plan: -Continue ventilatory support ---> Despite patient body habitus his IBW is 127 lbs (57 kg) --> therefore, lung protective ventilation would dictate TV ~ 350- 400 -Continue current settings, recheck ABG in 2 hours -Optimize pulmonary hygiene/mobilize as tolerated -Continue RTC and PRN DUOnebs + NAC HHN's -Continue Abx per ID -F/U viral respiratory panel -F/U autoimmune and atypical serologies -Would consider discontinuing D5W and repleting CH2O through NGT, 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 to keep on the soda drier feeder side, consider IV lasix -Unable to do CT chest 2/2 weight -Will decide need for bronchoscopy vs surgical lung biopsy afterwards -NEEDS higher level of care ([facility] vs [facility]) and consideration of ECMO, request placed @ [facility] and [facility] -NGTF's as tolerated -DVT Px: Hep SQ -FC, continue to discuss GOC CC 60 Critical Care - Objective Last 24 Hour Vital Signs Date Time Temp Pulse Resp B/P (MAP) Pulse Ox O2 Delivery O2 Flow Rate FiO2 10/16/17 08:58 28 10/16/17 07:56 96 31 87 Mechanical Ventilator 10/16/17 07:21 81 30 94 Mechanical Ventilator 90 10/16/17 07:14 85 33 90 10/16/17 07:00 91 28 119/70 93 Mechanical Ventilator 10/16/17 07:00 30 10/16/17 07:00 30 10/16/17 06:39 33 10/16/17 06:30 80 30 128/68 96 Mechanical Ventilator 100 10/16/17 06:00 86 30 132/68 96 Mechanical Ventilator 100 10/16/17 06:00 30 10/16/17 06:00 30 10/16/17 05:36 92 30 90 10/16/17 05:30 98 29 140/82 93 Mechanical Ventilator 100 10/16/17 05:00 30 10/16/17 05:00 30 10/16/17 05:00 100 29 140/82 93 Mechanical Ventilator 100 10/16/17 04:30 107 29 137/65 93 Mechanical Ventilator 100 10/16/17 04:07 30 10/16/17 04:07 30 10/16/17 04:00 92 10/16/17 04:00 92 10/16/17 04:00 100 10/16/17 04:00 98.6 91 28 119/70 93 Mechanical Ventilator 100 10/16/17 03:30 91 30 119/70 92 Mechanical Ventilator 100 10/16/17 03:30 91 28 119/70 93 Mechanical Ventilator 100 10/16/17 03:00 24 10/16/17 03:00 30 10/16/17 03:00 75 30 112/63 92 Mechanical Ventilator 100 10/16/17 03:00 75 28 112/63 94 Mechanical Ventilator 100 10/16/17 02:45 76 30 90 10/16/17 02:30 75 26 111/62 93 Mechanical Ventilator 100 10/16/17 02:30 75 30 111/62 92 Mechanical Ventilator 100 10/16/17 02:00 77 28 115/62 94 Mechanical Ventilator 100 10/16/17 02:00 30 10/16/17 02:00 28 10/16/17 02:00 77 30 115/62 92 Mechanical Ventilator 100 10/16/17 01:37 98 30 92 Mechanical Ventilator 10/16/17 01:30 77 30 113/62 92 Mechanical Ventilator 100 10/16/17 01:30 77 30 113/62 95 Mechanical Ventilator 100 10/16/17 01:27 75 30 90 Mechanical Ventilator 10/16/17 01:26 75 30 90 10/16/17 01:00 72 30 112/68 94 Mechanical Ventilator 100 10/16/17 01:00 28 10/16/17 01:00 30 10/16/17 00:30 79 29 130/72 94 Mechanical Ventilator 100 10/16/17 00:11 28 10/16/17 00:11 31 10/16/17 00:00 89 10/16/17 00:00 98.6 85 30 126/71 95 Mechanical Ventilator 100 10/16/17 00:00 90 10/15/17 23:52 86 30 90 10/15/17 23:00 72 30 120/66 95 Mechanical Ventilator 100 10/15/17 23:00 30 10/15/17 22:30 72 30 116/58 95 Mechanical Ventilator 90 10/15/17 22:00 28 17 22:00 28 10/15/17 22:00 72 30 114/56 91 Mechanical Ventilator 90 17 21:30 75 30 116/60 93 Mechanical Ventilator 90 1817 21:00 28 17 21:00 28 10/15/17 21:00 83 30 114/54 94 Mechanical Ventilator 90 17 20:35 105 31 90 17 20:35 111 30 92 Mechanical Ventilator 17 20:30 86 30 131/71 94 Mechanical Ventilator 90 10/15/17 20:19 75 32 92 Mechanical Ventilator 17 20:15 74 31 90 17 20:00 86 10/15/17 20:00 99.0 77 30 114/62 92 Mechanical Ventilator 90 17 20:00 30 10/15/17 20:00 23 17 20:00 90 17 19:03 30 17 19:00 27 17 19:00 28 10/15/17 19:00 97 27 140/83 92 Mechanical Ventilator 90 10/15/17 18:30 99 27 129/76 90 Mechanical Ventilator 90 10/15/17 18:00 30 17 18:00 30 17 18:00 74 30 121/65 88 Mechanical Ventilator 90 17 17:30 75 30 119/67 88 Mechanical Ventilator 90 17 17:06 73 30 90 17 17:00 83 30 118/64 89 Mechanical Ventilator 90 10/15/17 17:00 30 1817 17:00 30 1817 16:30 89 30 118/66 88 Mechanical Ventilator 90 1817 16:00 90 18/17 16:00 85 18/17 16:00 30 18/17 16:00 30 17 16:00 98.7 86 30 116/64 89 Mechanical Ventilator 90 1817 15:59 30 18/17 15:30 84 30 119/65 88 Mechanical Ventilator 90 18/17 15:00 30 18/17 15:00 30 1817 15:00 85 30 114/63 90 Mechanical Ventilator 90 10/15/17 14:50 74 30 94 Mechanical Ventilator 10/15/17 14:41 76 30 90 10/15/17 14:35 79 30 95 Mechanical Ventilator 10/15/17 14:30 76 30 121/61 96 Mechanical Ventilator 90 10/15/17 14:00 30 10/15/17 14:00 30 10/15/17 14:00 89 30 120/63 93 Mechanical Ventilator 90 10/15/17 13:30 82 27 131/74 92 Mechanical Ventilator 90 10/15/17 13:00 79 30 90 10/15/17 13:00 28 10/15/17 13:00 28 10/15/17 13:00 88 28 122/76 94 Mechanical Ventilator 90 10/15/17 12:30 95 29 138/81 91 Mechanical Ventilator 90 10/15/17 12:00 90 10/15/17 12:00 30 10/15/17 12:00 30 10/15/17 12:00 98.8 92 30 136/83 92 Mechanical Ventilator 90 10/15/17 12:00 104 10/15/17 11:40 93 30 90 10/15/17 11:30 115 26 134/86 88 Mechanical Ventilator 90 10/15/17 11:15 85 28 90 10/15/17 11:00 23 10/15/17 11:00 23 10/15/17 11:00 91 23 113/61 93 Mechanical Ventilator 90 10/15/17 10:30 90 24 108/55 93 Mechanical Ventilator 90 10/15/17 10:00 88 27 102/56 94 Mechanical Ventilator 90 10/15/17 10:00 27 10/15/17 10:00 27 10/15/17 09:30 86 24 102/59 94 Mechanical Ventilator 90 10/15/17 09:25 86 28 90 Status: sedated, other - morbidly obese\ Condition: critical HEENT: atraumatic, normocephalic, other - ETT, NGT Lungs: rales Heart: HR/BP stable Abdomen: soft, non-tender, active bowel sounds Extremities: edema - 1-2+ Objective: Scrotal edema, erythema and warmth Micro: Microbiology Date/Time Source Procedure Growth Status 10/15/17 12:34 Sputum Gram Stain - Final Resulted 10/15/17 12:34 Sputum Sputum Culture - Preliminary NO GROWTH Resulted Accucheck: 134 Critical Care - Subjective ROS Limited/Unobtainable: Yes ICU Day: 10 Intubation Day: 10 Condition: critical IV Access: PICC EKG Rhythm: Sinus Rhythm FI02: 90 Vent Support Breath Rate: 30 Vent Support Mode: AC Vent Tidal Volume: 500 Sputum Amount: Moderate PEEP: 10.0 PIP: 35 Secretions: moderate thick Fluids: D5W Tube Feeding Amount: 40 CXR: CT unable to be done 2/2 weight, CXR with persistent b opacities ET-Tube: 7.5 ET Position: 25 Labs: Laboratory Tests Test 10/15/17 11:00 10/15/17 12:34 10/15/17 12:45 10/15/17 14:15 Arterial Blood pH 7.252 (7.350-7.450) 7.322 (7.350-7.450) Arterial Blood Partial Pressure CO2 101.0 mmHg (35.0-45.0) *H 80.1 mmHg (35.0-45.0) *H Arterial Blood Partial Pressure O2 77.9 mmHg (75.0-100.0) 65.7 mmHg (75.0-100.0) L Arterial Blood HCO3 43.5 mmol/L (22.0-26.0) H 40.5 mmol/L (22.0-26.0) H Arterial Blood Oxygen Saturation 93.6 % (92.0-98.0) 91.9 % (92.0-98.0) L Arterial Blood Base Excess 12.2 11.3 Naif Test Positive Positive Coccidioides Antibody (Comp Fix) Pending Cryptococcus Antigen Pending Histoplasma Antigen Pending Test 10/15/17 15:33 Vancomycin Level Trough 8.8 ug/mL (5.0-12.0) ASHVIN LOVE M.D. Oct 16, 2017 09:15
[2017-10-16 10:16] LABS: HEMATOCRIT 43.3 % (42.0-52.0); HEMOGLOBIN 11.6 G/DL (14.2-18.0); MEAN CORPUSCULAR VOLUME 67 FL (80-99); PLATELET COUNT 146 K/UL (150-450); RED BLOOD COUNT 6.45 M/UL (4.70-6.10); RED CELL DISTRIBUTION WIDTH 20.8 % (11.6-14.8); WHITE BLOOD COUNT 14.2 K/UL (4.8-10.8)
[2017-10-16 10:49] LABS: ALANINE AMINOTRANSFERASE 18 U/L (12-78); ALBUMIN 1.7 G/DL (3.4-5.0); ALBUMIN/GLOBULIN RATIO 0.3 (1.0-2.7); ALKALINE PHOSPHATASE 72 U/L (46-116); ANION GAP 0 mmol/L (5-15); ASPARTATE AMINO TRANSFERASE 30 U/L (15-37); BILIRUBIN,TOTAL 0.4 MG/DL (0.2-1.0); BLOOD UREA NITROGEN 48 mg/dL (7-18); CALCIUM 8.2 MG/DL (8.5-10.1); CARBON DIOXIDE 37 MMOL/L (21-32); CHLORIDE 106 MMOL/L (98-107); CREATININE 1.8 MG/DL (0.55-1.30); PHOSPHORUS 4.1 MG/DL (2.5-4.9); SODIUM 143 MMOL/L (136-145)
--- NOTE | 2017-10-16 10:55 | Infectious Diseases Prog Note ---
Assessment/Plan Assessment/Plan ASSESSMENT: The patient is a 42-year-old male with, Leukocytosis ( on steroids ) Fever low grade , SP Possible aspiration pneumonia versus community-acquired pneumonia. Scx : P mirabilis , 10/13 C-Xray worsening of infiltrate vs edema Probable scrotal cellulitis versus discoloration of genitalia due to edema. CRP 20 09/15 HIV neg U leg Ab : neg ARDS CORA PICC 10/09 VDRF Congestive heart failure. PLAN: Cont pt on vancomycin and Doxy d# 9 / 10 , add Merrem d# 4 /7 10/13 sp Zosyn d# 5 Monitor CBC. Monitor BMP. Monitor cultures ( SP) Continue vent support. Monitor chest x-ray Fungal serology ordered by Pul Subjective Allergies: Coded Allergies: No Known Allergies (Unverified , 10/06/17) Subjective on Vent FIO2 85% Objective Vital Signs Last 24 Hour Vital Signs Date Time Temp Pulse Resp B/P (MAP) Pulse Ox O2 Delivery O2 Flow Rate FiO2 10/16/17 10:34 83 30 130/60 92 Mechanical Ventilator 85 10/16/17 10:00 30 10/16/17 10:00 30 10/16/17 10:00 84 30 140/74 92 Mechanical Ventilator 90 10/16/17 09:30 92 30 140/76 92 Mechanical Ventilator 95 10/16/17 09:00 90 30 85 10/16/17 09:00 95 28 134/72 92 Mechanical Ventilator 100 10/16/17 09:00 28 10/16/17 09:00 28 10/16/17 08:58 28 10/16/17 08:30 100 28 148/68 92 Mechanical Ventilator 100 10/16/17 08:00 30 10/16/17 08:00 30 10/16/17 08:00 98.5 106 28 138/80 92 Mechanical Ventilator 100 10/16/17 08:00 86 10/16/17 08:00 90 10/16/17 07:56 96 31 87 Mechanical Ventilator 10/16/17 07:30 85 29 135/71 92 Mechanical Ventilator 100 10/16/17 07:21 81 30 94 Mechanical Ventilator 90 10/16/17 07:14 85 33 90 10/16/17 07:00 91 28 119/70 93 Mechanical Ventilator 100 10/16/17 07:00 30 10/16/17 07:00 30 10/16/17 06:39 33 12/19/17 06:30 80 30 128/68 96 Mechanical Ventilator 100 10/16/17 06:00 86 30 132/68 96 Mechanical Ventilator 100 10/16/17 06:00 30 10/16/17 06:00 30 10/16/17 05:36 92 30 90 10/16/17 05:30 98 29 140/82 93 Mechanical Ventilator 100 10/16/17 05:00 30 10/16/17 05:00 30 10/16/17 05:00 100 29 140/82 93 Mechanical Ventilator 100 10/16/17 04:30 107 29 137/65 93 Mechanical Ventilator 100 10/16/17 04:07 30 10/16/17 04:07 30 10/16/17 04:00 92 10/16/17 04:00 92 10/16/17 04:00 100 10/16/17 04:00 98.6 91 28 119/70 93 Mechanical Ventilator 100 10/16/17 03:30 91 30 119/70 92 Mechanical Ventilator 100 10/16/17 03:30 91 28 119/70 93 Mechanical Ventilator 100 10/16/17 03:00 24 10/16/17 03:00 30 10/16/17 03:00 75 30 112/63 92 Mechanical Ventilator 100 10/16/17 03:00 75 28 112/63 94 Mechanical Ventilator 100 10/16/17 02:45 76 30 90 10/16/17 02:30 75 26 111/62 93 Mechanical Ventilator 100 10/16/17 02:30 75 30 111/62 92 Mechanical Ventilator 100 10/16/17 02:00 77 28 115/62 94 Mechanical Ventilator 100 10/16/17 02:00 30 10/16/17 02:00 28 10/16/17 02:00 77 30 115/62 92 Mechanical Ventilator 100 10/16/17 01:37 98 30 92 Mechanical Ventilator 10/16/17 01:30 77 30 113/62 92 Mechanical Ventilator 100 10/16/17 01:30 77 30 113/62 95 Mechanical Ventilator 100 10/16/17 01:27 75 30 90 Mechanical Ventilator 10/16/17 01:26 75 30 90 10/16/17 01:00 72 30 112/68 94 Mechanical Ventilator 100 10/16/17 01:00 28 10/16/17 01:00 30 10/16/17 00:30 79 29 130/72 94 Mechanical Ventilator 100 10/16/17 00:11 28 10/16/17 00:11 31 10/16/17 00:00 89 10/16/17 00:00 98.6 85 30 126/71 95 Mechanical Ventilator 100 10/16/17 00:00 90 10/15/17 23:52 86 30 90 10/15/17 23:00 72 30 120/66 95 Mechanical Ventilator 100 10/15/17 23:00 30 10/15/17 22:30 72 30 116/58 95 Mechanical Ventilator 90 10/15/17 22:00 28 10/15/17 22:00 28 10/15/17 22:00 72 30 114/56 91 Mechanical Ventilator 90 10/15/17 21:30 75 30 116/60 93 Mechanical Ventilator 90 10/15/17 21:00 28 10/15/17 21:00 28 10/15/17 21:00 83 30 114/54 94 Mechanical Ventilator 90 10/15/17 20:35 105 31 90 10/15/17 20:35 111 30 92 Mechanical Ventilator 10/15/17 20:30 86 30 131/71 94 Mechanical Ventilator 90 10/15/17 20:19 75 32 92 Mechanical Ventilator 10/15/17 20:15 74 31 90 10/15/17 20:00 86 10/15/17 20:00 99.0 77 30 114/62 92 Mechanical Ventilator 90 10/15/17 20:00 30 17 20:00 23 10/15/17 20:00 90 10/15/17 19:03 30 10/15/17 19:00 27 10/15/17 19:00 28 10/15/17 19:00 97 27 140/83 92 Mechanical Ventilator 90 10/15/17 18:30 99 27 129/76 90 Mechanical Ventilator 90 17 18:00 30 17 18:00 30 10/15/17 18:00 74 30 121/65 88 Mechanical Ventilator 90 10/15/17 17:30 75 30 119/67 88 Mechanical Ventilator 90 17 17:06 73 30 90 1817 17:00 83 30 118/64 89 Mechanical Ventilator 90 1817 17:00 30 1817 17:00 30 17 16:30 89 30 118/66 88 Mechanical Ventilator 90 10/15/17 16:00 90 10/15/17 16:00 85 10/15/17 16:00 30 10/15/17 16:00 30 10/15/17 16:00 98.7 86 30 116/64 89 Mechanical Ventilator 90 10/15/17 15:59 30 10/15/17 15:30 84 30 119/65 88 Mechanical Ventilator 90 10/15/17 15:00 30 10/15/17 15:00 30 10/15/17 15:00 85 30 114/63 90 Mechanical Ventilator 90 10/15/17 14:50 74 30 94 Mechanical Ventilator 10/15/17 14:41 76 30 90 10/15/17 14:35 79 30 95 Mechanical Ventilator 10/15/17 14:30 76 30 121/61 96 Mechanical Ventilator 90 10/15/17 14:00 30 10/15/17 14:00 30 10/15/17 14:00 89 30 120/63 93 Mechanical Ventilator 90 10/15/17 13:30 82 27 131/74 92 Mechanical Ventilator 90 10/15/17 13:00 79 30 90 10/15/17 13:00 28 10/15/17 13:00 28 10/15/17 13:00 88 28 122/76 94 Mechanical Ventilator 90 10/15/17 12:30 95 29 138/81 91 Mechanical Ventilator 90 10/15/17 12:00 90 10/15/17 12:00 30 10/15/17 12:00 30 10/15/17 12:00 98.8 92 30 136/83 92 Mechanical Ventilator 90 10/15/17 12:00 104 10/15/17 11:40 93 30 90 10/15/17 11:30 115 26 134/86 88 Mechanical Ventilator 90 10/15/17 11:15 85 28 90 10/15/17 11:00 23 10/15/17 11:00 23 10/15/17 11:00 91 23 113/61 93 Mechanical Ventilator 90 Height (Feet): 5 Height (Inches): 4.00 Weight (Pounds): 356 HEENT: mucous membranes moist Respiratory/Chest: chest wall non-tender, decreased breath sounds Cardiovascular: no JVD Abdomen: no organomegaly Microbiology Date/Time Source Procedure Growth Status 10/15/17 12:34 Sputum Gram Stain - Final Resulted 12/18/17 12:34 Sputum Sputum Culture - Preliminary NO GROWTH Resulted Laboratory Tests Test 10/15/17 11:00 10/15/17 12:34 10/15/17 12:45 10/15/17 14:15 Arterial Blood pH 7.252 (7.350-7.450) 7.322 (7.350-7.450) Arterial Blood Partial Pressure CO2 101.0 mmHg (35.0-45.0) *H 80.1 mmHg (35.0-45.0) *H Arterial Blood Partial Pressure O2 77.9 mmHg (75.0-100.0) 65.7 mmHg (75.0-100.0) L Arterial Blood HCO3 43.5 mmol/L (22.0-26.0) H 40.5 mmol/L (22.0-26.0) H Arterial Blood Oxygen Saturation 93.6 % (92.0-98.0) 91.9 % (92.0-98.0) L Arterial Blood Base Excess 12.2 11.3 Naif Test Positive Positive Coccidioides Antibody (Comp Fix) Pending Cryptococcus Antigen Pending Histoplasma Antigen Pending Test 10/15/17 15:33 10/16/17 09:40 Vancomycin Level Trough 8.8 ug/mL (5.0-12.0) White Blood Count 14.2 K/UL (4.8-10.8) H Red Blood Count 6.45 M/UL (4.70-6.10) H Hemoglobin 11.6 G/DL (14.2-18.0) L Hematocrit 43.3 % (42.0-52.0) Mean Corpuscular Volume 67 FL (80-99) L Mean Corpuscular Hemoglobin 18.0 PG (27.0-31.0) L Mean Corpuscular Hemoglobin Concent 26.8 G/DL (32.0-36.0) L Red Cell Distribution Width 20.8 % (11.6-14.8) H Platelet Count 146 K/UL (150-450) L Mean Platelet Volume 9.1 FL (6.5-10.1) Neutrophils (%) (Auto) % (45.0-75.0) Lymphocytes (%) (Auto) % (20.0-45.0) Monocytes (%) (Auto) % (1.0-10.0) Eosinophils (%) (Auto) % (0.0-3.0) Basophils (%) (Auto) % (0.0-2.0) Neutrophils % (Manual) Pending Lymphocytes % (Manual) Pending Platelet Estimate Pending Platelet Morphology Pending Sodium Level 143 MMOL/L (136-145) Potassium Level 4.0 MMOL/L (3.5-5.1) Chloride Level 106 MMOL/L (98-107) Carbon Dioxide Level 37 MMOL/L (21-32) H Anion Gap 0 mmol/L (5-15) L Blood Urea Nitrogen 48 mg/dL (7-18) H Creatinine 1.8 MG/DL (0.55-1.30) H Estimat Glomerular Filtration Rate 42.0 mL/min (>60) Glucose Level 260 MG/DL (74-106) #H Uric Acid 5.5 MG/DL (2.6-7.2) Calcium Level 8.2 MG/DL (8.5-10.1) L Phosphorus Level 4.1 MG/DL (2.5-4.9) Magnesium Level 2.4 MG/DL (1.8-2.4) Total Bilirubin 0.4 MG/DL (0.2-1.0) Aspartate Amino Transf (AST/SGOT) 30 U/L (15-37) Alanine Aminotransferase (ALT/SGPT) 18 U/L (12-78) Alkaline Phosphatase 72 U/L (46-116) C-Reactive Protein, Quantitative 7.9 mg/dL (0.00-0.90) H Pro-B-Type Natriuretic Peptide 4057 pg/mL (0-125) H Total Protein 6.7 G/DL (6.4-8.2) Albumin 1.7 G/DL (3.4-5.0) L Globulin 5.0 g/dL Albumin/Globulin Ratio 0.3 (1.0-2.7) L Current Medications Medications (Trade) Dose Ordered Sig/Prince Route PRN Reason Start Time Stop Time Status Last Admin Dose Admin Acetaminophen (Tylenol) 650 mg EVERY 4 HOURS PRN NG Mild Pain/Temp > 100.5 10/09/17 10:15 18 10:14 10/14/17 00:40 Acetylcysteine (Mucomyst) 200 mg Q6HRT HHN 10/15/17 13:00 11/14/17 12:59 10/16/17 07:13 Albuterol/ Ipratropium (Albuterol/ Ipratropium) 3 ml Q4H PRN HHN Shortness of Breath 10/15/17 08:45 10/20/17 08:44 Albuterol/ Ipratropium (Albuterol/ Ipratropium) 3 ml Q6HRT HHN 10/15/17 13:00 10/20/17 12:59 10/16/17 07:13 Chlorhexidine Gluconate (Sol-Hex 2%) 1 applic DAILY@2000 TOPIC 10/09/17 20:00 11/08/17 19:59 10/15/17 20:27 Dextrose 1,000 ml @ 75 mls/hr [id number] IV 10/14/17 12:00 11/13/17 11:59 10/16/17 04:08 Dextrose (Dextrose 50%) STAT PRN IV Hypoglycemia 10/12/17 11:00 11/11/17 10:59 Docusate Sodium (Colace) 100 mg BID GT 10/13/17 17:00 11/12/17 16:59 10/16/17 08:41 Doxycycline Monohydrate (Vibramycin) 100 mg Q12HR@0600,1800 GT 10/08/17 16:30 10/18/17 16:29 10/16/17 06:24 Fentanyl Citrate 1000 mcg/Sodium Chloride 100 ml @ 0 mls/hr Q24H IV 10/14/17 19:00 10/21/17 18:59 10/16/17 08:58 Haloperidol Lactate 5 mg/ Dextrose 56 ml @ 224 mls/hr Q1H PRN IVPB BREAKTHROUGH AGITATION 10/08/17 17:00 11/07/17 16:59 10/16/17 00:05 Heparin Sodium (Porcine) (Heparin 5000 units/ml) 5,000 units DAILY SUBQ 10/08/17 11:00 11/07/17 10:59 10/16/17 09:06 Insulin Aspart (NovoLOG) BEFORE MEALS AND HS SUBQ 10/12/17 11:30 11/11/17 11:29 10/16/17 06:33 Lorazepam (Ativan 2mg/ml 1ml) 2 mg Q4H PRN IV For Anxiety 10/14/17 14:00 10/21/17 13:59 10/16/17 03:43 Magnesium Hydroxide (Mom) 30 ml DAILYPRN PRN GT Constipation 10/13/17 16:30 11/12/17 16:29 10/14/17 21:39 Meropenem 1 gm/ Sodium Chloride 55 ml @ 110 mls/hr Q12HR@0400,1600 IVPB 10/13/17 16:00 10/18/17 15:59 10/16/17 04:07 Methylprednisolone Sodium Succinate (Solu-MEDROL) 60 mg EVERY 8 HOURS IVP 10/16/17 14:00 11/15/17 13:59 Midazolam HCl 100 ml @ 0 mls/hr Q24H PRN IVPB To Patient Comfort 10/15/17 08:00 10/22/17 07:59 10/16/17 06:39 Pantoprazole (Protonix) 40 mg DAILY IV 10/07/17 11:00 11/06/17 10:59 10/16/17 08:42 Vancomycin HCl (Vanco rx to dose) 1 ea DAILY PRN MISC PER RX PROTOCOL 10/07/17 11:00 11/06/17 10:59 Vancomycin HCl 1 gm/Dextrose 275 ml @ 183.708 mls/hr Q12HR@0400,1600 IVPB 10/16/17 04:00 10/21/17 03:59 10/16/17 04:07 CATALINA PARRA M.D. Oct 16, 2017 10:55
--- NOTE | 2017-10-16 11:51 | Nephrology Progress Note ---
Assessment/Plan Problem List: (1) Acute respiratory failure (2) Acute renal failure Assessment: with previous urinary out let obstruction Assessment Acute renal failure- Cr same and declining Acute Respiratory distress , ? aspiration pneumonia, intubated ARDS Acute Pulmonary edema Anasarca scotal cellutis Morbid obesity. Thrombocytopenia. Abnormal blood sugar. Anemia. Plan Plan: trial steroids K and Mag supplement as needed Keep BP in check pulm support avoid nephrotoxics monitor renal parameters per consultants / pulmonary per orders Left ventricular ejection fraction estimated to be grossly normal. Mild left ventricular hypertrophy. Subjective ROS Limited/Unobtainable: Yes Objective Objective Last 24 Hour Vital Signs Date Time Temp Pulse Resp B/P (MAP) Pulse Ox O2 Delivery O2 Flow Rate FiO2 10/16/17 11:00 90 30 127/65 93 Mechanical Ventilator 80 10/16/17 10:53 87 30 80 10/16/17 10:34 83 30 130/60 92 Mechanical Ventilator 85 10/16/17 10:00 30 10/16/17 10:00 30 10/16/17 10:00 84 30 140/74 92 Mechanical Ventilator 90 10/16/17 09:30 92 30 140/76 92 Mechanical Ventilator 95 10/16/17 09:00 90 30 85 10/16/17 09:00 95 28 134/72 92 Mechanical Ventilator 100 10/16/17 09:00 28 10/16/17 09:00 28 10/16/17 08:58 28 10/16/17 08:30 100 28 148/68 92 Mechanical Ventilator 100 10/16/17 08:00 30 10/16/17 08:00 30 10/16/17 08:00 98.5 106 28 138/80 92 Mechanical Ventilator 100 10/16/17 08:00 86 10/16/17 08:00 90 10/16/17 07:56 96 31 87 Mechanical Ventilator 10/16/17 07:30 85 29 135/71 92 Mechanical Ventilator 100 10/16/17 07:21 81 30 94 Mechanical Ventilator 90 10/16/17 07:14 85 33 90 10/16/17 07:00 91 28 119/70 93 Mechanical Ventilator 100 10/16/17 07:00 30 10/16/17 07:00 30 10/16/17 06:39 33 10/16/17 06:30 80 30 128/68 96 Mechanical Ventilator 100 10/16/17 06:00 86 30 132/68 96 Mechanical Ventilator 100 10/16/17 06:00 30 10/16/17 06:00 30 10/16/17 05:36 92 30 90 10/16/17 05:30 98 29 140/82 93 Mechanical Ventilator 100 10/16/17 05:00 30 10/16/17 05:00 30 10/16/17 05:00 100 29 140/82 93 Mechanical Ventilator 100 10/16/17 04:30 107 29 137/65 93 Mechanical Ventilator 100 10/16/17 04:07 30 10/16/17 04:07 30 10/16/17 04:00 92 10/16/17 04:00 92 10/16/17 04:00 100 10/16/17 04:00 98.6 91 28 119/70 93 Mechanical Ventilator 100 10/16/17 03:30 91 30 119/70 92 Mechanical Ventilator 100 10/16/17 03:30 91 28 119/70 93 Mechanical Ventilator 100 10/16/17 03:00 24 10/16/17 03:00 30 10/16/17 03:00 75 30 112/63 92 Mechanical Ventilator 100 10/16/17 03:00 75 28 112/63 94 Mechanical Ventilator 100 10/16/17 02:45 76 30 90 10/16/17 02:30 75 26 111/62 93 Mechanical Ventilator 100 10/16/17 02:30 75 30 111/62 92 Mechanical Ventilator 100 10/16/17 02:00 77 28 115/62 94 Mechanical Ventilator 100 10/16/17 02:00 30 10/16/17 02:00 28 10/16/17 02:00 77 30 115/62 92 Mechanical Ventilator 100 10/16/17 01:37 98 30 92 Mechanical Ventilator 10/16/17 01:30 77 30 113/62 92 Mechanical Ventilator 100 10/16/17 01:30 77 30 113/62 95 Mechanical Ventilator 100 10/16/17 01:27 75 30 90 Mechanical Ventilator 10/16/17 01:26 75 30 90 10/16/17 01:00 72 30 112/68 94 Mechanical Ventilator 100 10/16/17 01:00 28 10/16/17 01:00 30 10/16/17 00:30 79 29 130/72 94 Mechanical Ventilator 100 10/16/17 00:11 28 10/16/17 00:11 31 10/16/17 00:00 89 12/19/17 00:00 98.6 85 30 126/71 95 Mechanical Ventilator 100 10/16/17 00:00 90 10/15/17 23:52 86 30 90 10/15/17 23:00 72 30 120/66 95 Mechanical Ventilator 100 17 23:00 30 10/15/17 22:30 72 30 116/58 95 Mechanical Ventilator 90 10/15/17 22:00 28 10/15/17 22:00 28 10/15/17 22:00 72 30 114/56 91 Mechanical Ventilator 90 10/15/17 21:30 75 30 116/60 93 Mechanical Ventilator 90 10/15/17 21:00 28 10/15/17 21:00 28 10/15/17 21:00 83 30 114/54 94 Mechanical Ventilator 90 10/15/17 20:35 105 31 90 10/15/17 20:35 111 30 92 Mechanical Ventilator 10/15/17 20:30 86 30 131/71 94 Mechanical Ventilator 90 10/15/17 20:19 75 32 92 Mechanical Ventilator 10/15/17 20:15 74 31 90 17 20:00 86 10/15/17 20:00 99.0 77 30 114/62 92 Mechanical Ventilator 90 10/15/17 20:00 30 10/15/17 20:00 23 10/15/17 20:00 90 10/15/17 19:03 30 10/15/17 19:00 27 10/15/17 19:00 28 10/15/17 19:00 97 27 140/83 92 Mechanical Ventilator 90 10/15/17 18:30 99 27 129/76 90 Mechanical Ventilator 90 10/15/17 18:00 30 1817 18:00 30 17 18:00 74 30 121/65 88 Mechanical Ventilator 90 17 17:30 75 30 119/67 88 Mechanical Ventilator 90 17 17:06 73 30 90 17 17:00 83 30 118/64 89 Mechanical Ventilator 90 17 17:00 30 17 17:00 30 1817 16:30 89 30 118/66 88 Mechanical Ventilator 90 17 16:00 90 17 16:00 85 17 16:00 30 10/15/17 16:00 30 10/15/17 16:00 98.7 86 30 116/64 89 Mechanical Ventilator 90 10/15/17 15:59 30 10/15/17 15:30 84 30 119/65 88 Mechanical Ventilator 90 10/15/17 15:00 30 10/15/17 15:00 30 10/15/17 15:00 85 30 114/63 90 Mechanical Ventilator 90 10/15/17 14:50 74 30 94 Mechanical Ventilator 10/15/17 14:41 76 30 90 10/15/17 14:35 79 30 95 Mechanical Ventilator 10/15/17 14:30 76 30 121/61 96 Mechanical Ventilator 90 10/15/17 14:00 30 10/15/17 14:00 30 10/15/17 14:00 89 30 120/63 93 Mechanical Ventilator 90 10/15/17 13:30 82 27 131/74 92 Mechanical Ventilator 90 10/15/17 13:00 79 30 90 10/15/17 13:00 28 10/15/17 13:00 28 10/15/17 13:00 88 28 122/76 94 Mechanical Ventilator 90 10/15/17 12:30 95 29 138/81 91 Mechanical Ventilator 90 10/15/17 12:00 90 10/15/17 12:00 30 10/15/17 12:00 30 10/15/17 12:00 98.8 92 30 136/83 92 Mechanical Ventilator 90 10/15/17 12:00 104 Intake and Output 10/16/17 10/17/17 19:00 07:00 Intake Total 510 ml Output Total 625 ml Balance -115 ml IV Total 300 ml Tube Feeding 160 ml Other 50 ml Output Urine Total 625 ml Laboratory Tests 10/15/17 12:34: Coccidioides Antibody (Comp Fix) [Pending], Cryptococcus Antigen [Pending] 10/15/17 12:45: Histoplasma Antigen [Pending] 10/15/17 14:15: Arterial Blood pH 7.322L, Arterial Blood Partial Pressure CO2 80.1*H, Arterial Blood Partial Pressure O2 65.7L, Arterial Blood HCO3 40.5H, Arterial Blood Oxygen Saturation 91.9L, Arterial Blood Base Excess 11.3, Naif Test Positive 10/15/17 15:33: Vancomycin Level Trough 8.8 10/16/17 09:40: White Blood Count 14.2H, Red Blood Count 6.45H, Hemoglobin 11.6L, Hematocrit 43.3, Mean Corpuscular Volume 67L, Mean Corpuscular Hemoglobin 18.0L, Mean Corpuscular Hemoglobin Concent 26.8L, Red Cell Distribution Width 20.8H, Platelet Count 146L, Mean Platelet Volume 9.1, Neutrophils (%) (Auto) , Lymphocytes (%) (Auto) , Monocytes (%) (Auto) , Eosinophils (%) (Auto) , Basophils (%) (Auto) , Differential Total Cells Counted 100, Neutrophils % ( Manual) 89H, Lymphocytes % (Manual) 2L, Monocytes % (Manual) 8, Eosinophils % ( Manual) 0, Basophils % (Manual) 0, Band Neutrophils 1, Platelet Estimate DecreasedL, Platelet Morphology Normal, Hypochromasia 2+, Anisocytosis 2+, Microcytosis 1+, Sodium Level 143, Potassium Level 4.0, Chloride Level 106, Carbon Dioxide Level 37H, Anion Gap 0L, Blood Urea Nitrogen 48H, Creatinine 1.8H , Estimat Glomerular Filtration Rate 42.0, Glucose Level 260#H, Uric Acid 5.5, Calcium Level 8.2L, Phosphorus Level 4.1, Magnesium Level 2.4, Total Bilirubin 0.4, Aspartate Amino Transf (AST/SGOT) 30, Alanine Aminotransferase (ALT/SGPT) 18, Alkaline Phosphatase 72, C-Reactive Protein, Quantitative 7.9H, Pro-B-Type Natriuretic Peptide 4057H, Total Protein 6.7, Albumin 1.7L, Globulin 5.0, Albumin/Globulin Ratio 0.3L Height (Feet): 5 Height (Inches): 4.00 Weight (Pounds): 356 General Appearance: other - intubated Cardiovascular: tachycardia Respiratory/Chest: decreased breath sounds Abdomen: distended Objective no other change JAY YANCEY Oct 16, 2017 11:51
[2017-10-16] MEDS: Solu-MEDROL 125mg Inj IVP SCH ×2 (14:20→21:36)
[2017-10-16] MEDS: Dyna-Hex 2% Top Sol 2oz TOPIC SCH (20:37)
[2017-10-17] VITALS (47 sets, daily range): BP systolic 105–127; BP diastolic 8–80
[2017-10-17] MEDS: Albuterol/Ipratropium 3ml neb HHN SCH ×4 (01:32→19:55)
[2017-10-17] MEDS: Acetylcysteine 20% Soln 4ml HHN SCH ×4 (01:32→19:55)
[2017-10-17] MEDS: Haloperidol Lactate 5 MG in D5W 55 ML IVPB PRN (02:23)
[2017-10-17] MEDS: Vancomycin 1gm in D5W 275ml IVPB SCH ×2 (04:27→16:45)
[2017-10-17] MEDS: Meropenem 1 GM in NS 55 ML IVPB SCH ×2 (04:27→15:45)
[2017-10-17 04:40] LABS: HEMATOCRIT 42.9 % (42.0-52.0); HEMOGLOBIN 11.8 G/DL (14.2-18.0); MEAN CORPUSCULAR VOLUME 67 FL (80-99); PLATELET COUNT 191 K/UL (150-450); RED CELL DISTRIBUTION WIDTH 20.6 % (11.6-14.8); WHITE BLOOD COUNT 12.3 K/UL (4.8-10.8)
[2017-10-17 04:58] LABS: ALANINE AMINOTRANSFERASE 26 U/L (12-78); ALBUMIN 1.8 G/DL (3.4-5.0); ALBUMIN/GLOBULIN RATIO 0.3 (1.0-2.7); ALKALINE PHOSPHATASE 80 U/L (46-116); ANION GAP 0 mmol/L (5-15); ASPARTATE AMINO TRANSFERASE 34 U/L (15-37); BILIRUBIN,TOTAL 0.5 MG/DL (0.2-1.0); BLOOD UREA NITROGEN 47 mg/dL (7-18); CALCIUM 8.9 MG/DL (8.5-10.1); CARBON DIOXIDE 39 MMOL/L (21-32); CHLORIDE 108 MMOL/L (98-107); CREATININE 1.7 MG/DL (0.55-1.30); POTASSIUM 4.5 MMOL/L (3.5-5.1); SODIUM 147 MMOL/L (136-145)
[2017-10-17] MEDS: Solu-MEDROL 125mg Inj IVP SCH ×3 (05:35→22:01)
[2017-10-17] MEDS: Midazolam/D5W 100ml 100 ML IVPB PRN ×3 (05:54→17:57)
[2017-10-17] MEDS: NovoLOG Insulin Flexpen SUBQ SCH ×4 (06:02→21:06)
[2017-10-17] MEDS: Docusate 100mg/10ml Liq GT SCH ×2 (08:06→17:12)
[2017-10-17] MEDS: Pantoprazole Inj IV SCH (08:06)
[2017-10-17] MEDS: Heparin 5000 units/ml inj SUBQ SCH (08:09)
--- NOTE | 2017-10-17 09:43 | General Progress Note ---
Assessment/Plan Status: unchanged Assessment/Plan 1. VDRF 2. ARDS-Hypoxemic respiratory failure. 3.Sepsis: Aspiration Gram negative HCA-PNA 4. Gram negative HCA-PNA 5. Cellulitis of the scrotal area. 6. Morbid obesity. 7. ARF 8. Obstructive uropathy 9. Thrombocytopenia. 10. DM-2 11. Anemia. 12. Gastrointestinal and deep vein thrombosis prophylaxes. 13. Psoriasis PLAN OF CARE: NOtes from Infectious Diseases Dr. Pineda, Nephrology, Dr Urrutia, pulmonary Dr Steinberg reviewed Poor Prognosis Palliative extubation? Defer to pulmonary Subjective ROS Limited/Unobtainable: Yes - intubated and sedated Allergies: Coded Allergies: No Known Allergies (Unverified , 10/06/17) Objective Last 24 Hour Vital Signs Date Time Temp Pulse Resp B/P (MAP) Pulse Ox O2 Delivery O2 Flow Rate FiO2 10/17/17 09:05 72 30 100 10/17/17 09:00 74 30 116/58 92 Mechanical Ventilator 100 10/17/17 08:30 79 30 112/58 92 Mechanical Ventilator 100 10/17/17 08:00 99.8 94 30 119/57 94 Mechanical Ventilator 100 10/17/17 08:00 30 10/17/17 08:00 30 10/17/17 08:00 94 10/17/17 08:00 100 10/17/17 07:38 73 30 95 Mechanical Ventilator 10/17/17 07:30 76 30 114/60 94 Mechanical Ventilator 100 10/17/17 07:29 73 30 100 10/17/17 07:29 76 30 95 Mechanical Ventilator 100 10/17/17 07:00 71 31 117/64 93 Mechanical Ventilator 75 10/17/17 07:00 30 10/17/17 07:00 30 10/17/17 06:31 98.0 10/17/17 06:30 73 26 114/55 94 Mechanical Ventilator 75 10/17/17 06:30 98.2 10/17/17 06:00 76 28 112/60 94 Mechanical Ventilator 75 10/17/17 06:00 30 10/17/17 06:00 30 10/17/17 05:54 30 10/17/17 05:33 30 10/17/17 05:30 73 30 116/59 94 Mechanical Ventilator 75 10/17/17 05:16 70 30 75 10/17/17 05:00 71 30 118/64 94 Mechanical Ventilator 75 10/17/17 05:00 30 10/17/17 05:00 30 10/17/17 04:30 74 30 117/68 97 Mechanical Ventilator 75 10/17/17 04:00 75 10/17/17 04:00 30 10/17/17 04:00 30 10/17/17 04:00 95 10/17/17 04:00 98.0 79 30 116/60 98 Mechanical Ventilator 75 10/17/17 03:31 72 30 75 10/17/17 03:30 93 30 116/60 97 Mechanical Ventilator 75 10/17/17 03:00 93 27 116/60 95 Mechanical Ventilator 75 10/17/17 03:00 27 10/17/17 03:00 27 10/17/17 02:30 77 30 115/56 95 Mechanical Ventilator 75 10/17/17 02:00 28 10/17/17 02:00 28 10/17/17 02:00 105 28 115/56 92 Mechanical Ventilator 75 10/17/17 01:54 76 31 95 Mechanical Ventilator 10/17/17 01:34 77 30 75 10/17/17 01:33 76 30 95 Mechanical Ventilator 75 10/17/17 01:30 77 30 115/56 95 Mechanical Ventilator 75 10/17/17 01:00 28 10/17/17 01:00 28 10/17/17 01:00 78 28 117/54 95 Mechanical Ventilator 75 10/17/17 00:30 85 29 118/55 95 Mechanical Ventilator 75 10/17/17 00:00 98.2 85 30 116/55 95 Mechanical Ventilator 75 10/17/17 00:00 75 10/17/17 00:00 83 10/17/17 00:00 30 10/17/17 00:00 30 10/16/17 23:30 86 29 120/53 94 Mechanical Ventilator 75 10/16/17 23:19 91 30 75 10/16/17 23:00 29 10/16/17 23:00 29 10/16/17 23:00 89 29 116/54 94 Mechanical Ventilator 75 10/16/17 22:53 27 10/16/17 22:30 86 29 113/53 94 Mechanical Ventilator 75 10/16/17 22:00 29 10/16/17 22:00 29 10/16/17 22:00 90 29 115/50 94 Mechanical Ventilator 75 10/16/17 21:30 90 28 114/46 94 Mechanical Ventilator 75 10/16/17 21:00 87 26 115/48 93 Mechanical Ventilator 75 10/16/17 21:00 28 17 21:00 28 10/16/17 20:39 80 31 91 Mechanical Ventilator 10/16/17 20:38 80 60 75 10/16/17 20:30 80 30 116/51 93 Mechanical Ventilator 75 10/16/17 20:02 99 32 75 10/16/17 20:00 101 17 20:00 75 10/16/17 20:00 30 10/16/17 20:00 30 17 20:00 98.6 81 30 115/49 95 Mechanical Ventilator 75 17 19:30 100 30 125/56 93 Mechanical Ventilator 75 17 19:00 100 30 125/56 93 Mechanical Ventilator 75 10/16/17 19:00 30 10/16/17 19:00 30 17 18:50 30 17 18:30 101 31 124/56 92 Mechanical Ventilator 75 10/16/17 18:00 30 10/16/17 18:00 30 10/16/17 18:00 106 30 123/56 92 Mechanical Ventilator 75 17 17:30 123 30 123/58 92 Mechanical Ventilator 75 17 17:00 110 31 127/71 90 Mechanical Ventilator 75 10/16/17 17:00 29 10/16/17 17:00 29 10/16/17 16:58 93 36 75 10/16/17 16:30 93 33 127/73 90 Mechanical Ventilator 75 17 16:24 32 17 16:00 99.9 87 30 145/78 92 Mechanical Ventilator 75 10/16/17 16:00 92 10/16/17 16:00 30 10/16/17 16:00 75 10/16/17 15:47 89 31 75 10/16/17 15:30 92 32 141/77 91 Mechanical Ventilator 75 10/16/17 15:00 90 29 139/77 93 Mechanical Ventilator 75 10/16/17 15:00 30 10/16/17 15:00 30 10/16/17 14:30 94 30 137/69 93 Mechanical Ventilator 75 10/16/17 14:00 105 31 146/75 93 Mechanical Ventilator 75 10/16/17 14:00 31 10/16/17 14:00 31 10/16/17 13:59 117 30 91 Mechanical Ventilator 10/16/17 13:30 79 30 146/72 93 Mechanical Ventilator 75 10/16/17 13:28 84 30 75 10/16/17 13:27 82 30 91 Mechanical Ventilator 75 10/16/17 13:18 30 10/16/17 13:00 30 10/16/17 13:00 30 10/16/17 13:00 83 30 145/79 92 Mechanical Ventilator 75 10/16/17 12:30 82 30 144/76 92 Mechanical Ventilator 80 10/16/17 12:00 99.7 83 30 139/72 92 Mechanical Ventilator 80 10/16/17 12:00 90 10/16/17 12:00 80 10/16/17 12:00 30 10/16/17 12:00 30 10/16/17 11:30 87 30 139/74 91 Mechanical Ventilator 80 10/16/17 11:00 90 30 127/65 93 Mechanical Ventilator 80 10/16/17 11:00 28 10/16/17 11:00 28 10/16/17 10:53 87 30 80 10/16/17 10:34 83 30 130/60 92 Mechanical Ventilator 85 10/16/17 10:00 30 10/16/17 10:00 30 10/16/17 10:00 84 30 140/74 92 Mechanical Ventilator 90 Intake and Output 10/17/17 10/18/17 19:00 07:00 Intake Total 180 ml Output Total 475 ml Balance -295 ml IV Total 100 ml Tube Feeding 80 ml Output Urine Total 475 ml Laboratory Tests 10/17/17 04:00: White Blood Count 12.3H, Red Blood Count 6.40H, Hemoglobin 11.8L, Hematocrit 42.9, Mean Corpuscular Volume 67L, Mean Corpuscular Hemoglobin 18.4L, Mean Corpuscular Hemoglobin Concent 27.4L, Red Cell Distribution Width 20.6H, Platelet Count 191, Mean Platelet Volume 11.4H, Neutrophils (%) (Auto) , Lymphocytes (%) (Auto) , Monocytes (%) (Auto) , Eosinophils (%) (Auto) , Basophils (%) (Auto) , Sodium Level 147H, Potassium Level 4.5, Chloride Level 108H, Carbon Dioxide Level 39H, Anion Gap 0L, Blood Urea Nitrogen 47H, Creatinine 1.7H, Estimat Glomerular Filtration Rate 44.9, Glucose Level 146#H, Calcium Level 8.9, Total Bilirubin 0.5, Aspartate Amino Transf (AST/SGOT) 34, Alanine Aminotransferase (ALT/SGPT) 26, Alkaline Phosphatase 80, Total Protein 7.0, Albumin 1.8L, Globulin 5.2, Albumin/Globulin Ratio 0.3L Height (Feet): 5 Height (Inches): 4.00 Weight (Pounds): 356 General Appearance: other - intubated and sedated Neck: supple Cardiovascular: normal rate Respiratory/Chest: rhonchi - bilaterally Abdomen: soft Extremities: other - intubated and sedated Nery Combs MD Oct 17, 2017 09:43
--- NOTE | 2017-10-17 10:54 | Infectious Diseases Prog Note ---
Assessment/Plan Assessment/Plan ASSESSMENT: The patient is a 42-year-old male with, Leukocytosis ( on steroids ) Fever low grade , SP Possible aspiration pneumonia versus community-acquired pneumonia. Scx : P mirabilis , 10/13 C-Xray worsening of infiltrate vs edema Probable scrotal cellulitis versus discoloration of genitalia due to edema. CRP 20 09/15 HIV neg U leg Ab : neg ARDS CORA PICC 10/09 VDRF Congestive heart failure. PLAN: Cont pt on vancomycin and Doxy d# 10 / 10 , add Merrem d# 5 /7, Diflucan d# 1 ( Empiric for possible coccidio ) 10/13 sp Zosyn d# 5 Monitor CBC. Monitor BMP. Monitor cultures ( SP) Continue vent support. Monitor chest x-ray Fungal serology ordered by Pul Probable BAL tomorrow Fungitell Subjective Allergies: Coded Allergies: No Known Allergies (Unverified , 10/06/17) Subjective on Vent FIO2 100% Objective Vital Signs Last 24 Hour Vital Signs Date Time Temp Pulse Resp B/P (MAP) Pulse Ox O2 Delivery O2 Flow Rate FiO2 10/17/17 10:30 71 31 118/59 93 Mechanical Ventilator 100 10/17/17 10:00 73 31 118/63 92 Mechanical Ventilator 100 10/17/17 10:00 30 10/17/17 10:00 30 10/17/17 09:30 71 31 116/61 93 Mechanical Ventilator 100 10/17/17 09:05 72 30 100 10/17/17 09:00 31 10/17/17 09:00 31 10/17/17 09:00 74 30 116/58 92 Mechanical Ventilator 100 10/17/17 08:30 79 30 112/58 92 Mechanical Ventilator 100 10/17/17 08:00 99.8 94 30 119/57 94 Mechanical Ventilator 100 10/17/17 08:00 30 10/17/17 08:00 30 10/17/17 08:00 94 10/17/17 08:00 100 10/17/17 07:38 73 30 95 Mechanical Ventilator 10/17/17 07:30 76 30 114/60 94 Mechanical Ventilator 100 10/17/17 07:29 73 30 100 10/17/17 07:29 76 30 95 Mechanical Ventilator 100 10/17/17 07:00 71 31 117/64 93 Mechanical Ventilator 75 10/17/17 07:00 30 10/17/17 07:00 30 10/17/17 06:31 98.0 10/17/17 06:30 73 26 114/55 94 Mechanical Ventilator 75 10/17/17 06:30 98.2 10/17/17 06:00 76 28 112/60 94 Mechanical Ventilator 75 10/17/17 06:00 30 10/17/17 06:00 30 10/17/17 05:54 30 10/17/17 05:33 30 10/17/17 05:30 73 30 116/59 94 Mechanical Ventilator 75 10/17/17 05:16 70 30 75 10/17/17 05:00 71 30 118/64 94 Mechanical Ventilator 75 10/17/17 05:00 30 10/17/17 05:00 30 10/17/17 04:30 74 30 117/68 97 Mechanical Ventilator 75 10/17/17 04:00 75 10/17/17 04:00 30 10/17/17 04:00 30 10/17/17 04:00 95 10/17/17 04:00 98.0 79 30 116/60 98 Mechanical Ventilator 75 10/17/17 03:31 72 30 75 10/17/17 03:30 93 30 116/60 97 Mechanical Ventilator 75 10/17/17 03:00 93 27 116/60 95 Mechanical Ventilator 75 10/17/17 03:00 27 10/17/17 03:00 27 10/17/17 02:30 77 30 115/56 95 Mechanical Ventilator 75 10/17/17 02:00 28 10/17/17 02:00 28 10/17/17 02:00 105 28 115/56 92 Mechanical Ventilator 75 10/17/17 01:54 76 31 95 Mechanical Ventilator 10/17/17 01:34 77 30 75 10/17/17 01:33 76 30 95 Mechanical Ventilator 75 10/17/17 01:30 77 30 115/56 95 Mechanical Ventilator 75 10/17/17 01:00 28 10/17/17 01:00 28 10/17/17 01:00 78 28 117/54 95 Mechanical Ventilator 75 10/17/17 00:30 85 29 118/55 95 Mechanical Ventilator 75 10/17/17 00:00 98.2 85 30 116/55 95 Mechanical Ventilator 75 10/17/17 00:00 75 10/17/17 00:00 83 10/17/17 00:00 30 10/17/17 00:00 30 10/16/17 23:30 86 29 120/53 94 Mechanical Ventilator 75 10/16/17 23:19 91 30 75 10/16/17 23:00 29 10/16/17 23:00 29 10/16/17 23:00 89 29 116/54 94 Mechanical Ventilator 75 10/16/17 22:53 27 10/16/17 22:30 86 29 113/53 94 Mechanical Ventilator 75 10/16/17 22:00 29 10/16/17 22:00 29 10/16/17 22:00 90 29 115/50 94 Mechanical Ventilator 75 10/16/17 21:30 90 28 114/46 94 Mechanical Ventilator 75 10/16/17 21:00 87 26 115/48 93 Mechanical Ventilator 75 10/16/17 21:00 28 10/16/17 21:00 28 10/16/17 20:39 80 31 91 Mechanical Ventilator 10/16/17 20:38 80 60 75 10/16/17 20:30 80 30 116/51 93 Mechanical Ventilator 75 10/16/17 20:02 99 32 75 10/16/17 20:00 101 10/16/17 20:00 75 10/16/17 20:00 30 10/16/17 20:00 30 10/16/17 20:00 98.6 81 30 115/49 95 Mechanical Ventilator 75 10/16/17 19:30 100 30 125/56 93 Mechanical Ventilator 75 10/16/17 19:00 100 30 125/56 93 Mechanical Ventilator 75 10/16/17 19:00 30 10/16/17 19:00 30 10/16/17 18:50 30 10/16/17 18:30 101 31 124/56 92 Mechanical Ventilator 75 10/16/17 18:00 30 10/16/17 18:00 30 10/16/17 18:00 106 30 123/56 92 Mechanical Ventilator 75 17 17:30 123 30 123/58 92 Mechanical Ventilator 75 17 17:00 110 31 127/71 90 Mechanical Ventilator 75 10/16/17 17:00 29 17 17:00 29 17 16:58 93 36 75 17 16:30 93 33 127/73 90 Mechanical Ventilator 75 17 16:24 32 10/16/17 16:00 99.9 87 30 145/78 92 Mechanical Ventilator 75 10/16/17 16:00 92 10/16/17 16:00 30 10/16/17 16:00 75 10/16/17 15:47 89 31 75 10/16/17 15:30 92 32 141/77 91 Mechanical Ventilator 75 10/16/17 15:00 90 29 139/77 93 Mechanical Ventilator 75 10/16/17 15:00 30 10/16/17 15:00 30 10/16/17 14:30 94 30 137/69 93 Mechanical Ventilator 75 10/16/17 14:00 105 31 146/75 93 Mechanical Ventilator 75 10/16/17 14:00 31 10/16/17 14:00 31 10/16/17 13:59 117 30 91 Mechanical Ventilator 10/16/17 13:30 79 30 146/72 93 Mechanical Ventilator 75 10/16/17 13:28 84 30 75 10/16/17 13:27 82 30 91 Mechanical Ventilator 75 10/16/17 13:18 30 10/16/17 13:00 30 10/16/17 13:00 30 10/16/17 13:00 83 30 145/79 92 Mechanical Ventilator 75 10/16/17 12:30 82 30 144/76 92 Mechanical Ventilator 80 10/16/17 12:00 99.7 83 30 139/72 92 Mechanical Ventilator 80 10/16/17 12:00 90 10/16/17 12:00 80 10/16/17 12:00 30 10/16/17 12:00 30 10/16/17 11:30 87 30 139/74 91 Mechanical Ventilator 80 10/16/17 11:00 90 30 127/65 93 Mechanical Ventilator 80 10/16/17 11:00 28 10/16/17 11:00 28 10/16/17 10:53 87 30 80 Height (Feet): 5 Height (Inches): 4.00 Weight (Pounds): 356 HEENT: mucous membranes moist Respiratory/Chest: no accessory muscle use Cardiovascular: regularly irregular Abdomen: non distended Microbiology Date/Time Source Procedure Growth Status 10/15/17 12:34 Sputum Gram Stain - Final Complete 10/15/17 12:34 Sputum Sputum Culture - Final NORMAL UPPER RESPIRATORY BAHMAN PRESENT Complete Laboratory Tests Test 10/17/17 04:00 White Blood Count 12.3 K/UL (4.8-10.8) H Red Blood Count 6.40 M/UL (4.70-6.10) H Hemoglobin 11.8 G/DL (14.2-18.0) L Hematocrit 42.9 % (42.0-52.0) Mean Corpuscular Volume 67 FL (80-99) L Mean Corpuscular Hemoglobin 18.4 PG (27.0-31.0) L Mean Corpuscular Hemoglobin Concent 27.4 G/DL (32.0-36.0) L Red Cell Distribution Width 20.6 % (11.6-14.8) H Platelet Count 191 K/UL (150-450) Mean Platelet Volume 11.4 FL (6.5-10.1) H Neutrophils (%) (Auto) % (45.0-75.0) Lymphocytes (%) (Auto) % (20.0-45.0) Monocytes (%) (Auto) % (1.0-10.0) Eosinophils (%) (Auto) % (0.0-3.0) Basophils (%) (Auto) % (0.0-2.0) Sodium Level 147 MMOL/L (136-145) H Potassium Level 4.5 MMOL/L (3.5-5.1) Chloride Level 108 MMOL/L (98-107) H Carbon Dioxide Level 39 MMOL/L (21-32) H Anion Gap 0 mmol/L (5-15) L Blood Urea Nitrogen 47 mg/dL (7-18) H Creatinine 1.7 MG/DL (0.55-1.30) H Estimat Glomerular Filtration Rate 44.9 mL/min (>60) Glucose Level 146 MG/DL (74-106) #H Calcium Level 8.9 MG/DL (8.5-10.1) Total Bilirubin 0.5 MG/DL (0.2-1.0) Aspartate Amino Transf (AST/SGOT) 34 U/L (15-37) Alanine Aminotransferase (ALT/SGPT) 26 U/L (12-78) Alkaline Phosphatase 80 U/L (46-116) Total Protein 7.0 G/DL (6.4-8.2) Albumin 1.8 G/DL (3.4-5.0) L Globulin 5.2 g/dL Albumin/Globulin Ratio 0.3 (1.0-2.7) L Current Medications Medications (Trade) Dose Ordered Sig/Prince Route PRN Reason Start Time Stop Time Status Last Admin Dose Admin Acetaminophen (Tylenol) 650 mg EVERY 4 HOURS PRN NG Mild Pain/Temp > 100.5 10/09/17 10:15 11/08/17 10:14 10/14/17 00:40 Acetylcysteine (Mucomyst) 200 mg Q6HRT N 10/15/17 13:00 11/14/17 12:59 10/17/17 07:33 Albuterol/ Ipratropium (Albuterol/ Ipratropium) 3 ml Q4H PRN HHN Shortness of Breath 10/15/17 08:45 10/20/17 08:44 Albuterol/ Ipratropium (Albuterol/ Ipratropium) 3 ml Q6HRT N 10/15/17 13:00 10/20/17 12:59 10/17/17 07:33 Chlorhexidine Gluconate (Sol-Hex 2%) 1 applic DAILY@2000 TOPIC 10/09/17 20:00 11/08/17 19:59 10/16/17 20:37 Dextrose 1,000 ml @ 75 mls/hr [id number] IV 10/14/17 12:00 11/13/17 11:59 10/17/17 06:31 Dextrose (Dextrose 50%) STAT PRN IV Hypoglycemia 10/12/17 11:00 11/11/17 10:59 Docusate Sodium (Colace) 100 mg BID GT 10/13/17 17:00 11/12/17 16:59 10/17/17 08:06 Doxycycline Monohydrate (Vibramycin) 100 mg Q12HR@0600,1800 GT 10/08/17 16:30 10/18/17 16:29 10/17/17 05:35 Fentanyl Citrate 1000 mcg/Sodium Chloride 100 ml @ 0 mls/hr Q24H IV 10/14/17 19:00 10/21/17 18:59 10/17/17 05:33 Haloperidol Lactate 5 mg/ Dextrose 56 ml @ 224 mls/hr Q1H PRN IVPB BREAKTHROUGH AGITATION 10/08/17 17:00 11/07/17 16:59 10/17/17 02:23 Heparin Sodium (Porcine) (Heparin 5000 units/ml) 5,000 units DAILY SUBQ 10/08/17 11:00 11/07/17 10:59 10/17/17 08:09 Insulin Aspart (NovoLOG) BEFORE MEALS AND HS SUBQ 10/12/17 11:30 11/11/17 11:29 10/17/17 06:02 Lorazepam (Ativan 2mg/ml 1ml) 2 mg Q4H PRN IV For Anxiety 10/14/17 14:00 10/21/17 13:59 10/16/17 13:57 Magnesium Hydroxide (Mom) 30 ml DAILYPRN PRN GT Constipation 10/13/17 16:30 11/12/17 16:29 10/14/17 21:39 Meropenem 1 gm/ Sodium Chloride 55 ml @ 110 mls/hr Q12HR@0400,1600 IVPB 10/13/17 16:00 10/19/17 23:59 10/17/17 04:27 Methylprednisolone Sodium Succinate (Solu-MEDROL) 60 mg EVERY 8 HOURS IVP 10/16/17 14:00 11/15/17 13:59 10/17/17 05:35 Midazolam HCl 100 ml @ 0 mls/hr Q24H PRN IVPB To Patient Comfort 10/15/17 08:00 10/22/17 07:59 10/17/17 05:54 Pantoprazole (Protonix) 40 mg DAILY IV 10/07/17 11:00 11/06/17 10:59 10/17/17 08:06 Vancomycin HCl (Vanco rx to dose) 1 ea DAILY PRN MISC PER RX PROTOCOL 10/07/17 11:00 11/06/17 10:59 Vancomycin HCl 1 gm/Dextrose 275 ml @ 183.708 mls/hr Q12HR@0400,1600 IVPB 10/16/17 04:00 10/21/17 03:59 10/17/17 04:27 CATALINA PARRA M.D. Oct 17, 2017 10:54
--- NOTE | 2017-10-17 10:58 | Pulmonolgy Critical Care Note ---
Critical Care - Asmt/Plan Problems: (1) ARDS (adult respiratory distress syndrome) (2) Acute respiratory failure (3) Cellulitis of scrotum (4) Respiratory distress (5) Pulmonary edema (6) Anasarca (7) scotal cellutis (8) Acute renal failure Assessment/Plan: -Continue ventilatory support -Continue current settings, recheck ABG -CXR -Optimize pulmonary hygiene/mobilize as tolerated -Continue RTC and PRN DUOnebs + NAC HHN's -Continue Abx per ID -SM 60 IV TID, taper based on response -F/U viral respiratory panel -F/U autoimmune and atypical serologies (pending) -Would consider discontinuing D5W and repleting CH2O through NGT, 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 to keep on the drier belt conveyor side, consider IV lasix -Unable to do CT chest 2/2 weight -Possible bronch and BAL in am -Unable to tx to [facility] 2/2 insurance, awaiting authorization for [facility] -NGTF's as tolerated -DVT Px: Hep SQ -FC, continue to discuss GOC D/W PMD, CM, RN, RT,mother and [facility] transfer center CC 60 Critical Care - Objective Last 24 Hour Vital Signs Date Time Temp Pulse Resp B/P (MAP) Pulse Ox O2 Delivery O2 Flow Rate FiO2 10/17/17 10:30 71 31 118/59 93 Mechanical Ventilator 100 10/17/17 10:00 73 31 118/63 92 Mechanical Ventilator 100 10/17/17 10:00 30 10/17/17 10:00 30 10/17/17 09:30 71 31 116/61 93 Mechanical Ventilator 100 10/17/17 09:05 72 30 100 10/17/17 09:00 31 10/17/17 09:00 31 10/17/17 09:00 74 30 116/58 92 Mechanical Ventilator 100 10/17/17 08:30 79 30 112/58 92 Mechanical Ventilator 100 10/17/17 08:00 99.8 94 30 119/57 94 Mechanical Ventilator 100 10/17/17 08:00 30 10/17/17 08:00 30 10/17/17 08:00 94 10/17/17 08:00 100 10/17/17 07:38 73 30 95 Mechanical Ventilator 10/17/17 07:30 76 30 114/60 94 Mechanical Ventilator 100 10/17/17 07:29 73 30 100 10/17/17 07:29 76 30 95 Mechanical Ventilator 100 10/17/17 07:00 71 31 117/64 93 Mechanical Ventilator 75 10/17/17 07:00 30 10/17/17 07:00 30 10/17/17 06:31 98.0 10/17/17 06:30 73 26 114/55 94 Mechanical Ventilator 75 10/17/17 06:30 98.2 10/17/17 06:00 76 28 112/60 94 Mechanical Ventilator 75 10/17/17 06:00 30 10/17/17 06:00 30 10/17/17 05:54 30 10/17/17 05:33 30 10/17/17 05:30 73 30 116/59 94 Mechanical Ventilator 75 10/17/17 05:16 70 30 75 10/17/17 05:00 71 30 118/64 94 Mechanical Ventilator 75 10/17/17 05:00 30 10/17/17 05:00 30 10/17/17 04:30 74 30 117/68 97 Mechanical Ventilator 75 10/17/17 04:00 75 10/17/17 04:00 30 10/17/17 04:00 30 10/17/17 04:00 95 10/17/17 04:00 98.0 79 30 116/60 98 Mechanical Ventilator 75 10/17/17 03:31 72 30 75 10/17/17 03:30 93 30 116/60 97 Mechanical Ventilator 75 10/17/17 03:00 93 27 116/60 95 Mechanical Ventilator 75 10/17/17 03:00 27 10/17/17 03:00 27 10/17/17 02:30 77 30 115/56 95 Mechanical Ventilator 75 10/17/17 02:00 28 10/17/17 02:00 28 10/17/17 02:00 105 28 115/56 92 Mechanical Ventilator 75 10/17/17 01:54 76 31 95 Mechanical Ventilator 10/17/17 01:34 77 30 75 10/17/17 01:33 76 30 95 Mechanical Ventilator 75 10/17/17 01:30 77 30 115/56 95 Mechanical Ventilator 75 10/17/ 01:00 28 10/17/17 01:00 28 10/17/17 01:00 78 28 117/54 95 Mechanical Ventilator 75 10/17/17 00:30 85 29 118/55 95 Mechanical Ventilator 75 10/17/17 00:00 98.2 85 30 116/55 95 Mechanical Ventilator 75 10/17/17 00:00 75 10/17/17 00:00 83 10/17/17 00:00 30 10/17/17 00:00 30 10/16/17 23:30 86 29 120/53 94 Mechanical Ventilator 75 10/16/17 23:19 91 30 75 10/16/17 23:00 29 10/16/17 23:00 29 10/16/17 23:00 89 29 116/54 94 Mechanical Ventilator 75 10/16/17 22:53 27 10/16/17 22:30 86 29 113/53 94 Mechanical Ventilator 75 10/16/17 22:00 29 10/16/17 22:00 29 10/16/17 22:00 90 29 115/50 94 Mechanical Ventilator 75 10/16/17 21:30 90 28 114/46 94 Mechanical Ventilator 75 10/16/17 21:00 87 26 115/48 93 Mechanical Ventilator 75 10/16/17 21:00 28 10/16/17 21:00 28 10/16/17 20:39 80 31 91 Mechanical Ventilator 10/16/17 20:38 80 60 75 10/16/17 20:30 80 30 116/51 93 Mechanical Ventilator 75 10/16/17 20:02 99 32 75 10/16/17 20:00 101 10/16/17 20:00 75 10/16/17 20:00 30 10/16/17 20:00 30 10/16/17 20:00 98.6 81 30 115/49 95 Mechanical Ventilator 75 10/16/17 19:30 100 30 125/56 93 Mechanical Ventilator 75 10/16/17 19:00 100 30 125/56 93 Mechanical Ventilator 75 10/16/17 19:00 30 10/16/17 19:00 30 10/16/17 18:50 30 10/16/17 18:30 101 31 124/56 92 Mechanical Ventilator 75 10/16/17 18:00 30 10/16/17 18:00 30 10/16/17 18:00 106 30 123/56 92 Mechanical Ventilator 75 10/16/17 17:30 123 30 123/58 92 Mechanical Ventilator 75 10/16/17 17:00 110 31 127/71 90 Mechanical Ventilator 75 10/16/17 17:00 29 12/19/17 17:00 29 10/16/17 16:58 93 36 75 10/16/17 16:30 93 33 127/73 90 Mechanical Ventilator 75 10/16/17 16:24 32 10/16/17 16:00 99.9 87 30 145/78 92 Mechanical Ventilator 75 10/16/17 16:00 92 10/16/17 16:00 30 10/16/17 16:00 75 10/16/17 15:47 89 31 75 10/16/17 15:30 92 32 141/77 91 Mechanical Ventilator 75 10/16/17 15:00 90 29 139/77 93 Mechanical Ventilator 75 10/16/17 15:00 30 10/16/17 15:00 30 10/16/17 14:30 94 30 137/69 93 Mechanical Ventilator 75 10/16/17 14:00 105 31 146/75 93 Mechanical Ventilator 75 10/16/17 14:00 31 10/16/17 14:00 31 10/16/17 13:59 117 30 91 Mechanical Ventilator 10/16/17 13:30 79 30 146/72 93 Mechanical Ventilator 75 10/16/17 13:28 84 30 75 10/16/17 13:27 82 30 91 Mechanical Ventilator 75 10/16/17 13:18 30 10/16/17 13:00 30 10/16/17 13:00 30 10/16/17 13:00 83 30 145/79 92 Mechanical Ventilator 75 10/16/17 12:30 82 30 144/76 92 Mechanical Ventilator 80 10/16/17 12:00 99.7 83 30 139/72 92 Mechanical Ventilator 80 10/16/17 12:00 90 10/16/17 12:00 80 10/16/17 12:00 30 10/16/17 12:00 30 10/16/17 11:30 87 30 139/74 91 Mechanical Ventilator 80 10/16/17 11:00 90 30 127/65 93 Mechanical Ventilator 80 10/16/17 11:00 28 10/16/17 11:00 28 Status: awake, other - ETT NGT Condition: critical HEENT: atraumatic Neck: trach Lungs: rales - scattered Heart: HR/BP stable Abdomen: soft, non-tender, active bowel sounds Extremities: edema - 1-2+ Objective: Scrotal edema, erythema and warmth Micro: Microbiology Date/Time Source Procedure Growth Status 10/15/17 12:34 Sputum Gram Stain - Final Complete 10/15/17 12:34 Sputum Sputum Culture - Final NORMAL UPPER RESPIRATORY BAHMAN PRESENT Complete Accucheck: 146 Critical Care - Subjective ROS Limited/Unobtainable: Yes ICU Day: 11 Intubation Day: 11 Interval Events: Wct better, Cr better, secretions unchanged, FIO2 inc O/N Condition: critical IV Access: PICC EKG Rhythm: Sinus Rhythm FI02: 100 Vent Support Breath Rate: 30 Vent Support Mode: AC Vent Tidal Volume: 500 Sputum Amount: Scant PEEP: 10.0 PIP: 39 Tube Feeding Amount: 40 I&O: Intake and Output 10/17/17 10/18/17 19:00 07:00 Intake Total 420 ml Output Total 625 ml Balance -205 ml IV Total 300 ml Tube Feeding 120 ml Output Urine Total 625 ml ET-Tube: 7.5 ET Position: 25 Labs: Laboratory Tests Test 10/17/17 04:00 White Blood Count 12.3 K/UL (4.8-10.8) H Red Blood Count 6.40 M/UL (4.70-6.10) H Hemoglobin 11.8 G/DL (14.2-18.0) L Hematocrit 42.9 % (42.0-52.0) Mean Corpuscular Volume 67 FL (80-99) L Mean Corpuscular Hemoglobin 18.4 PG (27.0-31.0) L Mean Corpuscular Hemoglobin Concent 27.4 G/DL (32.0-36.0) L Red Cell Distribution Width 20.6 % (11.6-14.8) H Platelet Count 191 K/UL (150-450) Mean Platelet Volume 11.4 FL (6.5-10.1) H Neutrophils (%) (Auto) % (45.0-75.0) Lymphocytes (%) (Auto) % (20.0-45.0) Monocytes (%) (Auto) % (1.0-10.0) Eosinophils (%) (Auto) % (0.0-3.0) Basophils (%) (Auto) % (0.0-2.0) Sodium Level 147 MMOL/L (136-145) H Potassium Level 4.5 MMOL/L (3.5-5.1) Chloride Level 108 MMOL/L (98-107) H Carbon Dioxide Level 39 MMOL/L (21-32) H Anion Gap 0 mmol/L (5-15) L Blood Urea Nitrogen 47 mg/dL (7-18) H Creatinine 1.7 MG/DL (0.55-1.30) H Estimat Glomerular Filtration Rate 44.9 mL/min (>60) Glucose Level 146 MG/DL (74-106) #H Calcium Level 8.9 MG/DL (8.5-10.1) Total Bilirubin 0.5 MG/DL (0.2-1.0) Aspartate Amino Transf (AST/SGOT) 34 U/L (15-37) Alanine Aminotransferase (ALT/SGPT) 26 U/L (12-78) Alkaline Phosphatase 80 U/L (46-116) Total Protein 7.0 G/DL (6.4-8.2) Albumin 1.8 G/DL (3.4-5.0) L Globulin 5.2 g/dL Albumin/Globulin Ratio 0.3 (1.0-2.7) L ASHVIN LOVE M.D. Oct 17, 2017 10:58
--- NOTE | 2017-10-17 16:29 | Diagnostic Imaging Report ---
Indication: Reason For Exam: COPD Technique: One view of the chest Comparison: 10/15/2017 Findings: Stable satisfactory position of endotracheal tube, right arm PICC. The nasogastric tube position is indeterminate as it is obscured by the abundant overlying soft tissue. Again demonstrated is diffuse extensive pulmonary parenchymal opacity. This appears unchanged on the right, somewhat improved on the left. Cardiomegaly persists. Probable small right pleural effusion persists. Impression: Extensive pulmonary consolidation is again demonstrated, but appears somewhat improved on the left. Otherwise stable as described
[2017-10-17] MEDS: Dyna-Hex 2% Top Sol 2oz TOPIC SCH (20:01)
[2017-10-18] VITALS (48 sets, daily range): BP systolic 84–130; BP diastolic 48–79
[2017-10-18] MEDS: LORazepam Inj 2mg/ml 1ml IV PRN ×2 (00:27→21:46)
[2017-10-18] MEDS: Acetylcysteine 20% Soln 4ml HHN SCH ×4 (01:17→19:44)
[2017-10-18] MEDS: Albuterol/Ipratropium 3ml neb HHN SCH ×4 (01:17→19:44)
[2017-10-18] MEDS: Meropenem 1 GM in NS 55 ML IVPB SCH ×2 (03:32→16:16)
[2017-10-18] MEDS: Vancomycin 1gm in D5W 275ml IVPB SCH ×2 (04:25→16:16)
[2017-10-18 05:54] LABS: HEMATOCRIT 44.4 % (42.0-52.0); HEMOGLOBIN 12.1 G/DL (14.2-18.0); MEAN CORPUSCULAR VOLUME 67 FL (80-99); PLATELET COUNT 214 K/UL (150-450); RED BLOOD COUNT 6.63 M/UL (4.70-6.10); RED CELL DISTRIBUTION WIDTH 20.7 % (11.6-14.8); WHITE BLOOD COUNT 12.2 K/UL (4.8-10.8)
[2017-10-18] MEDS: Solu-MEDROL 125mg Inj IVP SCH (05:54)
[2017-10-18] MEDS: Midazolam/D5W 100ml 100 ML IVPB PRN ×2 (06:00→15:49)
[2017-10-18] MEDS: NovoLOG Insulin Flexpen SUBQ SCH ×4 (06:03→20:44)
[2017-10-18] MEDS: Docusate 100mg/10ml Liq GT SCH ×2 (09:51→18:01)
[2017-10-18] MEDS: Pantoprazole Inj IV SCH (09:51)
[2017-10-18] MEDS: Heparin 5000 units/ml inj SUBQ SCH (09:53)
--- NOTE | 2017-10-18 10:56 | Operative Note - PDOC ---
Operative Note Operative Note Date of Operation/Procedure: Oct 18, 2017 Chief Complaint: RESPIRATORY FAILURE Pre-op Diagnosis: ARDS & MULTILOBAR PNA Procedure: BRONCHOSCOPY WITH THERAPEUTIC ASPIRATION OF MUCOUS PLUG/CLOT AND BRONCHOALVEOLAR LAVAGE Post-op Diagnosis: ARDS, EXTENSIVE B MUCOID AND BLOODY SECRETIONS INTERMIXED WITH CLOT, EXTENSIVE AIRWAY INFLAMMATION, NO ACTIVE ALVEOLAR BLEEDING Operative Findings: consistent w/pre-op dx studies Surgeon: ASHVIN LOVE MD Merchandising Representative: N/A Additional Surgeons: N/A Anesthesiologist: N/A Anesthesia: other - ICU SEDATION with Fentanyl & Versed Specimen: yes - BAL Complications: none Condition: stable Fluids: None Estimated Blood Loss: none Drains: none Packing: N/A Implant(s) used?: No Indications for Procedure RESPIRATORY FAILURE, ARDS, MULTILOBAR INFILTRATES Description of Procedure Patient seen and identified in his ICU room, time out taken, ICU sedation with fentanyl and versed. Bronchoscopy advanced through ETT into trachea, careful inspection of tracheal lumen and bilateral bronchial trees to subsegmental bronchi done. There was extensive airway inflammation and intermixed bloody and mucoid secretions, BAL was done, therapeutic aspiration was done, all subsegments patent at the end of procedure, no active bleeding, ETT secured 3 cm above edna and bronchoscope withdrawn. ASHVIN LOVE M.D. Oct 18, 2017 10:56
--- NOTE | 2017-10-18 10:59 | Pulmonolgy Critical Care Note ---
Critical Care - Asmt/Plan Problems: (1) ARDS (adult respiratory distress syndrome) (2) Acute respiratory failure (3) Cellulitis of scrotum (4) Respiratory distress (5) Pulmonary edema (6) Anasarca (7) scotal cellutis (8) Acute renal failure Assessment/Plan: -S/P FOB this am --> F/U BAL studies -CXR -Continue ventilatory support -Continue current settings, recheck ABG -Consideration for John, paralysis, proning would not be technically feasible -Optimize pulmonary hygiene/mobilize as tolerated -Continue RTC and PRN DUOnebs + NAC HHN's -Continue Abx per ID -Decrease SM to 40 IV TID, taper based on response -F/U viral respiratory panel -F/U autoimmune and atypical serologies (pending) -Would consider discontinuing D5W and repleting CH2O through NGT, 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 to 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 on the 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 solutions 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 side, consider IV lasix -Unable to do CT chest 2/2 weight -Unable to tx to [facility] 2/2 insurance, awaiting authorization for [facility] -NGTF's as tolerated -DVT Px: Hep SQ -FC, continue to discuss GOC D/W PMD, CM, RN, RT,mother and [facility] transfer center CC 60 Critical Care - Objective Last 24 Hour Vital Signs Date Time Temp Pulse Resp B/P (MAP) Pulse Ox O2 Delivery O2 Flow Rate FiO2 10/18/17 09:51 30 10/18/17 09:00 72 30 123/66 97 Mechanical Ventilator 85 10/18/17 08:59 70 30 85 10/18/17 08:30 74 30 122/68 99 Mechanical Ventilator 10/18/17 08:00 80 10/18/17 08:00 99.3 74 30 122/64 96 Mechanical Ventilator 85 10/18/17 08:00 30 10/18/17 08:00 30 10/18/17 08:00 85 10/18/17 07:30 79 30 113/65 97 Mechanical Ventilator 85 10/18/17 07:12 90 30 93 Mechanical Ventilator 85 10/18/17 07:03 80 30 85 10/18/17 07:02 85 30 91 Mechanical Ventilator 85 10/18/17 07:00 79 29 96/63 100 Mechanical Ventilator 85 10/18/17 07:00 26 10/18/17 07:00 26 10/18/17 06:30 90 32 115/70 100 Mechanical Ventilator 85 10/18/17 06:00 94 30 107/76 100 Mechanical Ventilator 85 10/18/17 06:00 30 10/18/17 06:00 30 10/18/17 05:30 100 32 85/58 95 Mechanical Ventilator 85 10/18/17 05:12 97 30 85 10/18/17 05:00 99 32 113/60 99 Mechanical Ventilator 85 10/18/17 05:00 30 10/18/17 05:00 30 10/18/17 04:30 89 32 115/74 91 Mechanical Ventilator 85 10/18/17 04:00 85 10/18/17 04:00 84 10/18/17 04:00 30 10/18/17 04:00 30 10/18/17 04:00 98.1 81 30 118/68 91 Mechanical Ventilator 85 10/18/17 03:30 84 30 120/67 91 Mechanical Ventilator 85 10/18/17 03:02 32 10/18/17 03:00 83 32 120/71 91 Mechanical Ventilator 85 10/18/17 03:00 32 10/18/17 03:00 32 10/18/17 02:51 85 30 85 10/18/17 02:30 82 30 116/65 91 Mechanical Ventilator 85 10/18/17 02:00 32 10/18/17 02:00 32 10/18/17 02:00 84 30 121/68 90 Mechanical Ventilator 85 10/18/17 01:30 87 30 124/70 93 Mechanical Ventilator 85 10/18/17 01:16 75 30 95 Mechanical Ventilator 85 10/18/17 01:15 76 30 85 10/18/17 01:11 86 30 94 Mechanical Ventilator 85 10/18/17 01:00 32 10/18/17 01:00 32 10/18/17 01:00 74 30 114/59 96 Mechanical Ventilator 85 10/18/17 00:30 71 31 114/67 90 Mechanical Ventilator 85 10/18/17 00:00 70 10/18/17 00:00 85 10/18/17 00:00 30 10/18/17 00:00 30 10/18/17 00:00 98.1 89 17 123/69 91 Mechanical Ventilator 85 10/17/17 23:30 100 31 115/64 90 Mechanical Ventilator 85 10/17/17 23:27 71 30 85 10/17/17 23:00 32 10/17/17 23:00 30 10/17/17 23:00 70 31 106/61 92 Mechanical Ventilator 85 10/17/17 22:30 72 31 107/61 92 Mechanical Ventilator 85 10/17/17 22:00 74 33 107/60 92 Mechanical Ventilator 85 10/17/17 22:00 30 10/17/17 22:00 31 10/17/17 21:00 30 10/17/17 21:00 30 10/17/17 21:00 74 31 107/61 93 Mechanical Ventilator 85 10/17/17 20:46 97 30 85 10/17/17 20:30 82 30 105/58 95 Mechanical Ventilator 85 10/17/17 20:00 86 32 119/61 95 Mechanical Ventilator 85 10/17/17 20:00 85 10/17/17 20:00 89 10/17/17 20:00 30 10/17/17 20:00 30 10/17/17 19:55 92 30 95 Mechanical Ventilator 85 10/17/17 19:54 93 30 92 Mechanical Ventilator 85 10/17/17 19:30 99.1 87 29 115/67 91 Mechanical Ventilator 85 10/17/17 19:20 93 30 85 10/17/17 19:00 94 32 118/71 92 Mechanical Ventilator 85 10/17/17 19:00 32 10/17/17 19:00 32 10/17/17 18:58 32 10/17/17 18:30 91 31 124/75 90 Mechanical Ventilator 85 10/17/17 18:00 31 10/17/17 18:00 31 10/17/17 18:00 93 31 120/69 93 Mechanical Ventilator 85 10/17/17 17:57 30 10/17/17 17:30 106 32 127/65 92 Mechanical Ventilator 85 17 17:19 82 30 85 10/17/17 17:00 30 10/17/17 17:00 30 10/17/17 17:00 84 30 117/57 94 Mechanical Ventilator 85 17 16:30 85 30 115/61 92 Mechanical Ventilator 85 10/17/17 16:00 88 2017 16:00 85 17 16:00 100.1 88 31 118/60 92 Mechanical Ventilator 85 10/17/17 16:00 31 12/20/17 16:00 31 10/17/17 15:30 100 30 121/65 93 Mechanical Ventilator 85 10/17/17 15:29 97 30 85 10/17/17 15:00 73 28 125/71 93 Mechanical Ventilator 85 10/17/17 15:00 30 10/17/17 15:00 30 10/17/17 14:30 77 30 123/64 93 Mechanical Ventilator 85 10/17/17 14:00 76 30 122/63 93 Mechanical Ventilator 90 10/17/17 14:00 30 10/17/17 14:00 30 10/17/17 13:30 78 30 121/67 96 Mechanical Ventilator 90 10/17/17 13:23 66 30 95 Mechanical Ventilator 10/17/17 13:21 66 30 85 10/17/17 13:14 66 30 95 Mechanical Ventilator 85 10/17/17 13:00 69 30 118/65 95 Mechanical Ventilator 90 10/17/17 13:00 30 10/17/17 13:00 30 10/17/17 12:30 73 30 117/61 94 Mechanical Ventilator 90 10/17/17 12:15 30 10/17/17 12:00 99.7 79 30 111/59 93 Mechanical Ventilator 90 10/17/17 12:00 90 10/17/17 12:00 72 10/17/17 12:00 30 10/17/17 12:00 30 10/17/17 11:57 30 10/17/17 11:30 74 30 111/54 94 Mechanical Ventilator 90 10/17/17 11:14 90 10/17/17 11:00 94 30 126/80 92 Mechanical Ventilator 100 10/17/17 11:00 30 10/17/17 11:00 30 Status: obtunded - morbid obese, intubated Condition: critical HEENT: atraumatic, normocephalic, other - ETT, NGT Lungs: rhonchi - coarse bilateral rhonchi Heart: HR/BP stable Abdomen: soft, non-tender, active bowel sounds Extremities: no C/C/E, other Objective: Scrotal edema, erythema and warmth Micro: Microbiology Date/Time Source Procedure Growth Status 10/15/17 12:34 Sputum Gram Stain - Final Complete 10/15/17 12:34 Sputum Sputum Culture - Final NORMAL UPPER RESPIRATORY BAHMAN PRESENT Complete Accucheck: 164 Critical Care - Subjective ROS Limited/Unobtainable: Yes ICU Day: 11 Intubation Day: 11 Interval Events: S/p FOB by me --> extensive airway inflammation + mucoid and bloody secretions S /P therapeutic aspiration Otherwise, no sig change on vent EKG Rhythm: Sinus Tachycardia FI02: 85 Vent Support Breath Rate: 30 Vent Support Mode: AC Vent Tidal Volume: 500 Sputum Amount: Scant PEEP: 10.0 PIP: 41 I&O: Intake and Output 10/17/17 10/18/17 19:00 07:00 Intake Total 2348.343 ml 1593.708 ml Output Total 2160 ml 1345 ml Balance 188.343 ml 248.708 ml IV Total 1868.343 ml 1373.708 ml Tube Feeding 480 ml 160 ml Other 60 ml Output Urine Total 2160 ml 1345 ml ET-Tube: 7.5 ET Position: 25 Labs: Laboratory Tests Test 10/18/17 05:30 White Blood Count 12.2 K/UL (4.8-10.8) H Red Blood Count 6.63 M/UL (4.70-6.10) H Hemoglobin 12.1 G/DL (14.2-18.0) L Hematocrit 44.4 % (42.0-52.0) Mean Corpuscular Volume 67 FL (80-99) L Mean Corpuscular Hemoglobin 18.2 PG (27.0-31.0) L Mean Corpuscular Hemoglobin Concent 27.2 G/DL (32.0-36.0) L Red Cell Distribution Width 20.7 % (11.6-14.8) H Platelet Count 214 K/UL (150-450) Mean Platelet Volume 9.9 FL (6.5-10.1) Neutrophils (%) (Auto) % (45.0-75.0) Lymphocytes (%) (Auto) % (20.0-45.0) Monocytes (%) (Auto) % (1.0-10.0) Eosinophils (%) (Auto) % (0.0-3.0) Basophils (%) (Auto) % (0.0-2.0) ASHVIN LOVE M.D. Oct 18, 2017 10:59
--- NOTE | 2017-10-18 12:49 | General Progress Note ---
Assessment/Plan Status: unchanged Assessment/Plan 1. VDRF 2. ARDS-Hypoxemic respiratory failure. 3.Sepsis: Aspiration Gram negative HCA-PNA 4. Gram negative HCA-PNA 5. Cellulitis of the scrotal area. 6. Morbid obesity. 7. ARF 8. Obstructive uropathy 9. Thrombocytopenia. 10. DM-2 11. Anemia. 12. Gastrointestinal and deep vein thrombosis prophylaxes. 13. Psoriasis PLAN OF CARE: NOtes from Infectious Diseases Dr. Pineda, Nephrology, Dr Urrutia, pulmonary Dr Steinberg reviewed Poor Prognosis Palliative extubation? Defer to pulmonary Subjective ROS Limited/Unobtainable: Yes Allergies: Coded Allergies: No Known Allergies (Unverified , 10/06/17) Objective Last 24 Hour Vital Signs Date Time Temp Pulse Resp B/P (MAP) Pulse Ox O2 Delivery O2 Flow Rate FiO2 10/18/17 12:40 70 30 93 Mechanical Ventilator 85 10/18/17 12:30 72 30 119/74 94 Mechanical Ventilator 100 10/18/17 12:00 98.9 76 30 119/74 94 Mechanical Ventilator 100 10/18/17 12:00 100 10/18/17 12:00 75 10/18/17 11:30 77 30 117/67 94 Mechanical Ventilator 100 10/18/17 11:23 87 31 85 10/18/17 11:00 87 30 127/64 94 Mechanical Ventilator 100 10/18/17 10:30 100 30 84/48 93 Mechanical Ventilator 100 10/18/17 10:00 84 30 121/60 96 Mechanical Ventilator 100 10/18/17 09:51 30 10/18/17 09:30 84 30 129/70 97 Mechanical Ventilator 85 10/18/17 09:00 72 30 123/66 97 Mechanical Ventilator 85 10/18/17 08:59 70 30 85 10/18/17 08:30 74 30 122/68 99 Mechanical Ventilator 85 10/18/17 08:00 80 10/18/17 08:00 99.3 74 30 122/64 96 Mechanical Ventilator 85 10/18/17 08:00 30 10/18/17 08:00 30 10/18/17 08:00 85 10/18/17 07:30 79 30 113/65 97 Mechanical Ventilator 85 10/18/17 07:12 90 30 93 Mechanical Ventilator 85 10/18/17 07:03 80 30 85 10/18/17 07:02 85 30 91 Mechanical Ventilator 85 10/18/17 07:00 79 29 96/63 100 Mechanical Ventilator 85 10/18/17 07:00 26 10/18/17 07:00 26 10/18/17 06:30 90 32 115/70 100 Mechanical Ventilator 85 10/18/17 06:00 94 30 107/76 100 Mechanical Ventilator 85 10/18/17 06:00 30 10/18/17 06:00 30 10/18/17 05:30 100 32 85/58 95 Mechanical Ventilator 85 10/18/17 05:12 97 30 85 10/18/17 05:00 99 32 113/60 99 Mechanical Ventilator 85 10/18/17 05:00 30 10/18/17 05:00 30 10/18/17 04:30 89 32 115/74 91 Mechanical Ventilator 85 10/18/17 04:00 85 10/18/17 04:00 84 10/18/17 04:00 30 10/18/17 04:00 30 10/18/17 04:00 98.1 81 30 118/68 91 Mechanical Ventilator 85 10/18/17 03:30 84 30 120/67 91 Mechanical Ventilator 85 10/18/17 03:02 32 10/18/17 03:00 83 32 120/71 91 Mechanical Ventilator 85 10/18/17 03:00 32 10/18/17 03:00 32 10/18/17 02:51 85 30 85 10/18/17 02:30 82 30 116/65 91 Mechanical Ventilator 85 10/18/17 02:00 32 10/18/17 02:00 32 10/18/17 02:00 84 30 121/68 90 Mechanical Ventilator 85 10/18/17 01:30 87 30 124/70 93 Mechanical Ventilator 85 10/18/17 01:16 75 30 95 Mechanical Ventilator 85 10/18/17 01:15 76 30 85 10/18/17 01:11 86 30 94 Mechanical Ventilator 85 10/18/17 01:00 32 10/18/17 01:00 32 10/18/17 01:00 74 30 114/59 96 Mechanical Ventilator 85 10/18/17 00:30 71 31 114/67 90 Mechanical Ventilator 85 10/18/17 00:00 70 10/18/17 00:00 85 10/18/17 00:00 30 10/18/17 00:00 30 10/18/17 00:00 98.1 89 17 123/69 91 Mechanical Ventilator 85 17 23:30 100 31 115/64 90 Mechanical Ventilator 85 17 23:27 71 30 85 17 23:00 32 10/17/17 23:00 30 10/17/17 23:00 70 31 106/61 92 Mechanical Ventilator 85 17 22:30 72 31 107/61 92 Mechanical Ventilator 85 10/17/17 22:00 74 33 107/60 92 Mechanical Ventilator 85 17 22:00 30 10/17/17 22:00 31 10/17/17 21:00 30 10/17/17 21:00 30 10/17/17 21:00 74 31 107/61 93 Mechanical Ventilator 85 10/17/17 20:46 97 30 85 10/17/17 20:30 82 30 105/58 95 Mechanical Ventilator 85 10/17/17 20:00 86 32 119/61 95 Mechanical Ventilator 85 10/17/17 20:00 85 10/17/17 20:00 89 10/17/17 20:00 30 10/17/17 20:00 30 10/17/17 19:55 92 30 95 Mechanical Ventilator 85 10/17/17 19:54 93 30 92 Mechanical Ventilator 85 10/17/17 19:30 99.1 87 29 115/67 91 Mechanical Ventilator 85 17 19:20 93 30 85 10/17/17 19:00 94 32 118/71 92 Mechanical Ventilator 85 10/17/17 19:00 32 10/17/17 19:00 32 10/17/17 18:58 32 10/17/17 18:30 91 31 124/75 90 Mechanical Ventilator 85 17 18:00 31 10/17/17 18:00 31 10/17/17 18:00 93 31 120/69 93 Mechanical Ventilator 85 17 17:57 30 10/17/17 17:30 106 32 127/65 92 Mechanical Ventilator 85 17 17:19 82 30 85 17 17:00 30 17 17:00 30 17 17:00 84 30 117/57 94 Mechanical Ventilator 85 17 16:30 85 30 115/61 92 Mechanical Ventilator 85 12/20/17 16:00 88 12/20/17 16:00 85 10/17/17 16:00 100.1 88 31 118/60 92 Mechanical Ventilator 85 10/17/17 16:00 31 10/17/17 16:00 31 10/17/17 15:30 100 30 121/65 93 Mechanical Ventilator 85 10/17/17 15:29 97 30 85 10/17/17 15:00 73 28 125/71 93 Mechanical Ventilator 85 10/17/17 15:00 30 10/17/17 15:00 30 10/17/17 14:30 77 30 123/64 93 Mechanical Ventilator 85 10/17/17 14:00 76 30 122/63 93 Mechanical Ventilator 90 10/17/17 14:00 30 10/17/17 14:00 30 10/17/17 13:30 78 30 121/67 96 Mechanical Ventilator 90 10/17/17 13:23 66 30 95 Mechanical Ventilator 10/17/17 13:21 66 30 85 10/17/17 13:14 66 30 95 Mechanical Ventilator 85 10/17/17 13:00 69 30 118/65 95 Mechanical Ventilator 90 10/17/17 13:00 30 10/17/17 13:00 30 Intake and Output 10/17/17 10/18/17 19:00 07:00 Intake Total 2348.343 ml 1593.708 ml Output Total 2160 ml 1345 ml Balance 188.343 ml 248.708 ml IV Total 1868.343 ml 1373.708 ml Tube Feeding 480 ml 160 ml Other 60 ml Output Urine Total 2160 ml 1345 ml Laboratory Tests 10/18/17 05:30: White Blood Count 12.2H, Red Blood Count 6.63H, Hemoglobin 12.1L, Hematocrit 44.4, Mean Corpuscular Volume 67L, Mean Corpuscular Hemoglobin 18.2L, Mean Corpuscular Hemoglobin Concent 27.2L, Red Cell Distribution Width 20.7H, Platelet Count 214, Mean Platelet Volume 9.9, Neutrophils (%) (Auto) , Lymphocytes (%) (Auto) , Monocytes (%) (Auto) , Eosinophils (%) (Auto) , Basophils (%) (Auto) Height (Feet): 5 Height (Inches): 4.00 Weight (Pounds): 356 General Appearance: other - limite EENT: PERRL/EOMI Neck: other - limited eval as patient is not following commands Respiratory/Chest: crackles/rales, rhonchi - bilaterally Abdomen: soft Extremities: other - limited eval as patient is not following commands Neurologic: other Nery Combs MD Oct 18, 2017 12:49
[2017-10-18] MEDS: Solu-MEDROL 40mg Inj IVP SCH ×2 (14:03→21:35)
--- NOTE | 2017-10-18 15:20 | Diagnostic Imaging Report ---
Indication: Dyspnea Technique: One view of the chest Comparison: 10/17/2017 Findings: Stable satisfactory position of endotracheal tube. Probably stable position of PICC, tip obscured. Extensive diffuse bilateral airspace consolidation is seen throughout both lungs, appearing essentially unchanged. There is markedly increased pleural fluid on the right, however. The heart remains enlarged. Impression: Increased and now large right pleural effusion. Other stable findings as described
[2017-10-18] MEDS ORDERED: D5W 550ml IV ONE (15:52)
[2017-10-18] MEDS: Dyna-Hex 2% Top Sol 2oz TOPIC SCH (19:40)
--- NOTE | 2017-10-18 22:02 | Infectious Diseases Prog Note ---
Assessment/Plan Assessment/Plan ASSESSMENT: The patient is a 42-year-old male with, Leukocytosis ( on steroids ) Fever low grade , SP Possible aspiration pneumonia versus community-acquired pneumonia. Scx : P mirabilis , 10/13 C-Xray worsening of infiltrate vs edema Probable scrotal cellulitis versus discoloration of genitalia due to edema. CRP 09/15 HIV , Crypt : neg U leg Ab : neg ARDS CORA PICC 10/09 VDRF Congestive heart failure. PLAN: Cont pt on Merrem d# 6/7, Diflucan d# 2 ( Empiric for possible coccidio ) 10/17 sp vancomycin and Doxy d# 10 / 10 10/13 sp Zosyn d# 5 Monitor CBC. Monitor BMP. Monitor cultures ( SP) Continue vent support. Monitor chest x-ray Fungal serology ordered by Pul BAL Cx " P Fungitell Subjective Allergies: Coded Allergies: No Known Allergies (Unverified , 10/06/17) Subjective on Vent FIO2 85% Objective Vital Signs Last 24 Hour Vital Signs Date Time Temp Pulse Resp B/P (MAP) Pulse Ox O2 Delivery O2 Flow Rate FiO2 10/18/17 21:30 92 30 119/69 92 Mechanical Ventilator 85 10/18/17 21:29 87 30 85 10/18/17 21:00 30 10/18/17 21:00 30 10/18/17 21:00 78 30 105/73 92 Mechanical Ventilator 85 10/18/17 20:30 78 30 115/66 92 Mechanical Ventilator 85 10/18/17 20:00 82 30 120/65 92 Mechanical Ventilator 85 10/18/17 20:00 30 10/18/17 20:00 30 10/18/17 20:00 85 10/18/17 19:54 94 30 94 Mechanical Ventilator 85 10/18/17 19:50 92 30 93 Mechanical Ventilator 85 10/18/17 19:30 87 30 129/79 92 Mechanical Ventilator 85 10/18/17 19:30 86 31 85 10/18/17 19:00 29 10/18/17 19:00 29 10/18/17 19:00 99.1 71 30 121/71 92 Mechanical Ventilator 85 10/18/17 18:30 74 32 120/64 92 Mechanical Ventilator 85 10/18/17 18:01 30 10/18/17 18:00 30 10/18/17 18:00 104 30 130/76 92 Mechanical Ventilator 85 10/18/17 17:30 96 30 128/75 90 Mechanical Ventilator 85 10/18/17 17:00 30 10/18/17 17:00 30 10/18/17 17:00 71 30 121/75 89 Mechanical Ventilator 85 10/18/17 16:41 75 30 85 10/18/17 16:30 69 30 121/76 89 Mechanical Ventilator 85 10/18/17 16:00 98.6 71 30 119/75 90 Mechanical Ventilator 85 10/18/17 16:00 100 10/18/17 16:00 30 10/18/17 16:00 30 10/18/17 16:00 71 10/18/17 15:49 30 10/18/17 15:30 74 30 118/74 91 Mechanical Ventilator 85 10/18/17 15:21 76 30 85 10/18/17 15:00 86 30 124/67 91 Mechanical Ventilator 85 10/18/17 15:00 30 10/18/17 15:00 30 10/18/17 14:30 69 30 121/75 91 Mechanical Ventilator 85 10/18/17 14:00 69 30 121/75 91 Mechanical Ventilator 85 10/18/17 14:00 30 10/18/17 13:30 70 30 123/76 91 Mechanical Ventilator 85 10/18/17 13:00 68 30 126/78 91 Mechanical Ventilator 85 10/18/17 13:00 30 10/18/17 13:00 30 10/18/17 12:50 75 30 95 Mechanical Ventilator 85 10/18/17 12:43 80 30 85 10/18/17 12:40 70 30 93 Mechanical Ventilator 85 10/18/17 12:30 72 30 119/74 94 Mechanical Ventilator 100 10/18/17 12:00 98.9 76 30 119/74 94 Mechanical Ventilator 100 10/18/17 12:00 100 10/18/17 12:00 75 10/18/17 12:00 30 10/18/17 12:00 30 10/18/17 11:30 77 30 117/67 94 Mechanical Ventilator 100 10/18/17 11:23 87 31 85 10/18/17 11:00 87 30 127/64 94 Mechanical Ventilator 100 10/18/17 11:00 30 10/18/17 11:00 30 10/18/17 10:30 100 30 84/48 93 Mechanical Ventilator 100 10/18/17 10:00 30 10/18/17 10:00 30 10/18/17 10:00 84 30 121/60 96 Mechanical Ventilator 100 10/18/17 09:51 30 10/18/17 09:30 84 30 129/70 97 Mechanical Ventilator 85 10/18/17 09:00 30 10/18/17 09:00 30 10/18/17 09:00 72 30 123/66 97 Mechanical Ventilator 85 10/18/17 08:59 70 30 85 10/18/17 08:30 74 30 122/68 99 Mechanical Ventilator 85 10/18/17 08:00 80 10/18/17 08:00 99.3 74 30 122/64 96 Mechanical Ventilator 85 10/18/17 08:00 30 10/18/17 08:00 30 10/18/17 08:00 85 10/18/17 07:30 79 30 113/65 97 Mechanical Ventilator 85 10/18/17 07:12 90 30 93 Mechanical Ventilator 85 10/18/17 07:03 80 30 85 10/18/17 07:02 85 30 91 Mechanical Ventilator 85 10/18/17 07:00 79 29 96/63 100 Mechanical Ventilator 85 10/18/17 07:00 26 10/18/17 07:00 26 10/18/17 06:30 90 32 115/70 100 Mechanical Ventilator 85 10/18/17 06:00 94 30 107/76 100 Mechanical Ventilator 85 10/18/17 06:00 30 10/18/17 06:00 30 10/18/17 05:30 100 32 85/58 95 Mechanical Ventilator 85 10/18/17 05:12 97 30 85 10/18/17 05:00 99 32 113/60 99 Mechanical Ventilator 85 10/18/17 05:00 30 10/18/17 05:00 30 10/18/17 04:30 89 32 115/74 91 Mechanical Ventilator 85 10/18/17 04:00 85 10/18/17 04:00 84 10/18/17 04:00 30 10/18/17 04:00 30 10/18/17 04:00 98.1 81 30 118/68 91 Mechanical Ventilator 85 10/18/17 03:30 84 30 120/67 91 Mechanical Ventilator 85 10/18/17 03:02 32 10/18/17 03:00 83 32 120/71 91 Mechanical Ventilator 85 10/18/17 03:00 32 10/18/17 03:00 32 10/18/17 02:51 85 30 85 10/18/17 02:30 82 30 116/65 91 Mechanical Ventilator 85 10/18/17 02:00 32 10/18/17 02:00 32 10/18/17 02:00 84 30 121/68 90 Mechanical Ventilator 85 10/18/17 01:30 87 30 124/70 93 Mechanical Ventilator 85 10/18/17 01:16 75 30 95 Mechanical Ventilator 85 10/18/17 01:15 76 30 85 10/18/17 01:11 86 30 94 Mechanical Ventilator 85 10/18/17 01:00 32 10/18/17 01:00 32 10/18/17 01:00 74 30 114/59 96 Mechanical Ventilator 85 10/18/17 00:30 71 31 114/67 90 Mechanical Ventilator 85 10/18/17 00:00 70 10/18/17 00:00 85 10/18/17 00:00 30 10/18/17 00:00 30 10/18/17 00:00 98.1 89 17 123/69 91 Mechanical Ventilator 85 10/17/17 23:30 100 31 115/64 90 Mechanical Ventilator 85 10/17/17 23:27 71 30 85 10/17/17 23:00 32 10/17/17 23:00 30 10/17/17 23:00 70 31 106/61 92 Mechanical Ventilator 85 10/17/17 22:30 72 31 107/61 92 Mechanical Ventilator 85 Height (Feet): 5 Height (Inches): 4.00 Weight (Pounds): 356 HEENT: anicteric Respiratory/Chest: no accessory muscle use Cardiovascular: regularly irregular Abdomen: soft, non tender Laboratory Tests Test 10/18/17 05:30 10/18/17 14:10 White Blood Count 12.2 K/UL (4.8-10.8) H Red Blood Count 6.63 M/UL (4.70-6.10) H Hemoglobin 12.1 G/DL (14.2-18.0) L Hematocrit 44.4 % (42.0-52.0) Mean Corpuscular Volume 67 FL (80-99) L Mean Corpuscular Hemoglobin 18.2 PG (27.0-31.0) L Mean Corpuscular Hemoglobin Concent 27.2 G/DL (32.0-36.0) L Red Cell Distribution Width 20.7 % (11.6-14.8) H Platelet Count 214 K/UL (150-450) Mean Platelet Volume 9.9 FL (6.5-10.1) Neutrophils (%) (Auto) % (45.0-75.0) Lymphocytes (%) (Auto) % (20.0-45.0) Monocytes (%) (Auto) % (1.0-10.0) Eosinophils (%) (Auto) % (0.0-3.0) Basophils (%) (Auto) % (0.0-2.0) Arterial Blood pH 7.378 (7.350-7.450) Arterial Blood Partial Pressure CO2 67.1 mmHg (35.0-45.0) *H Arterial Blood Partial Pressure O2 60.3 mmHg (75.0-100.0) L Arterial Blood HCO3 38.6 mmol/L (22.0-26.0) H Arterial Blood Oxygen Saturation 90.4 % (92.0-98.0) L Arterial Blood Base Excess 10.9 Naif Test Positive Current Medications Medications (Trade) Dose Ordered Sig/Prince Route PRN Reason Start Time Stop Time Status Last Admin Dose Admin Acetaminophen (Tylenol) 650 mg EVERY 4 HOURS PRN NG Mild Pain/Temp > 100.5 10/09/17 10:15 11/08/17 10:14 10/14/17 00:40 Acetylcysteine (Mucomyst) 200 mg Q6HRT N 10/15/17 13:00 11/14/17 12:59 10/18/17 19:44 Albuterol/ Ipratropium (Albuterol/ Ipratropium) 3 ml Q4H PRN HHN Shortness of Breath 10/15/17 08:45 10/20/17 08:44 Albuterol/ Ipratropium (Albuterol/ Ipratropium) 3 ml Q6HRT N 10/15/17 13:00 10/20/17 12:59 10/18/17 19:44 Chlorhexidine Gluconate (Sol-Hex 2%) 1 applic DAILY@1999 TOPIC 10/09/17 20:00 11/08/17 19:59 10/18/17 19:40 Dextrose 1,000 ml @ 75 mls/hr [id number] IV 10/14/17 12:00 11/13/17 11:59 10/18/17 09:52 Dextrose (Dextrose 50%) STAT PRN IV Hypoglycemia 10/12/17 11:00 11/11/17 10:59 Docusate Sodium (Colace) 100 mg BID GT 10/13/17 17:00 11/12/17 16:59 10/18/17 18:01 Fentanyl Citrate 1000 mcg/Sodium Chloride 100 ml @ 0 mls/hr Q24H IV 10/14/17 19:00 10/21/17 18:59 10/18/17 18:01 Fluconazole/ Sodium Chloride 200 ml @ 100 mls/hr Q24H IV 10/17/17 12:00 10/24/17 11:59 10/18/17 11:44 Haloperidol Lactate 5 mg/ Dextrose 56 ml @ 224 mls/hr Q1H PRN IVPB BREAKTHROUGH AGITATION 10/08/17 17:00 11/07/17 16:59 10/17/17 02:23 Heparin Sodium (Porcine) (Heparin 5000 units/ml) 5,000 units DAILY SUBQ 10/08/17 11:00 11/07/17 10:59 10/18/17 09:53 Insulin Aspart (NovoLOG) BEFORE MEALS AND HS SUBQ 10/12/17 11:30 11/11/17 11:29 10/18/17 20:44 Lorazepam (Ativan 2mg/ml 1ml) 2 mg Q4H PRN IV For Anxiety 10/14/17 14:00 10/21/17 13:59 10/18/17 21:46 Magnesium Hydroxide (Mom) 30 ml DAILYPRN PRN GT Constipation 10/13/17 16:30 11/12/17 16:29 10/14/17 21:39 Meropenem 1 gm/ Sodium Chloride 55 ml @ 110 mls/hr Q12HR@0400,1600 IVPB 10/13/17 16:00 10/19/17 23:59 10/18/17 16:16 Methylprednisolone Sodium Succinate (Solu-MEDROL) 40 mg EVERY 8 HOURS IVP 10/18/17 14:00 11/17/17 13:59 10/18/17 21:35 Midazolam HCl 100 ml @ 0 mls/hr Q24H PRN IVPB To Patient Comfort 10/15/17 08:00 10/22/17 07:59 10/18/17 15:49 Pantoprazole (Protonix) 40 mg DAILY IV 10/07/17 11:00 11/06/17 10:59 10/18/17 09:51 Vancomycin HCl (Vanco rx to dose) 1 ea DAILY PRN MISC PER RX PROTOCOL 10/07/17 11:00 11/06/17 10:59 Vancomycin HCl 1 gm/Dextrose 275 ml @ 183.708 mls/hr Q12HR@0400,1600 IVPB 10/16/17 04:00 10/21/17 03:59 10/18/17 16:16 CATALINA PARRA M.D. Oct 18, 2017 22:02
[2017-10-19] VITALS (52 sets, daily range): BP systolic 99–130; BP diastolic 41–87
[2017-10-19] MEDS: Midazolam/D5W 100ml 100 ML IVPB PRN ×5 (00:43→22:33)
[2017-10-19] MEDS: Albuterol/Ipratropium 3ml neb HHN SCH ×4 (01:37→19:11)
[2017-10-19] MEDS: Acetylcysteine 20% Soln 4ml HHN SCH ×3 (01:38→13:00)
[2017-10-19] MEDS: Meropenem 1 GM in NS 55 ML IVPB SCH ×2 (03:48→15:30)
[2017-10-19 05:50] LABS: ANION GAP 3 mmol/L (5-15); BLOOD UREA NITROGEN 49 mg/dL (7-18); CALCIUM 7.6 MG/DL (8.5-10.1); CARBON DIOXIDE 36 MMOL/L (21-32); CHLORIDE 105 MMOL/L (98-107); CREATININE 1.4 MG/DL (0.55-1.30); POTASSIUM 4.7 MMOL/L (3.5-5.1); SODIUM 144 MMOL/L (136-145)
[2017-10-19 05:52] LABS: HEMATOCRIT 44.5 % (42.0-52.0); HEMOGLOBIN 12.2 G/DL (14.2-18.0); MEAN CORPUSCULAR VOLUME 67 FL (80-99); PLATELET COUNT 245 K/UL (150-450); RED BLOOD COUNT 6.61 M/UL (4.70-6.10); RED CELL DISTRIBUTION WIDTH 21.1 % (11.6-14.8); WHITE BLOOD COUNT 13.7 K/UL (4.8-10.8)
[2017-10-19] MEDS: Solu-MEDROL 40mg Inj IVP SCH ×2 (05:53→21:00)
[2017-10-19] MEDS: NovoLOG Insulin Flexpen SUBQ SCH ×4 (05:55→21:00)
--- NOTE | 2017-10-19 08:40 | Emergency Room Report ---
History of Present Illness General Chief Complaint: Male Urogenital Problems Source: Patient Present Illness Allergies: Coded Allergies: No Known Allergies (Unverified , 10/06/17) Nursing Documentation-[facility] Past Medical History: No Stated History Physical Exam Vital Signs Date Time Temp Pulse Resp B/P (MAP) Pulse Ox O2 Delivery O2 Flow Rate FiO2 10/06/17 21:45 98.2 110 19 132/70 97 Room Air 10/07/17 04:00 2.0 10/07/17 07:08 100 Procedures Intubation Intubation : Consent: Emergent Intubation Method: orotracheal Tube Size (cm): 7.5 Medications: Etomidate, Rocuronium Breath Sounds after Intubation: equal Intubation Complications: no complications Post Intubation Xray: Yes Attempts: Other - 2 Patient Tolerated: Well Complications: None Progress I was called up to ICU for patient with resp failure, self-extubated, was on fentanyl and versed when I arrived patient was on NRB, satting 75-80 patient difficult intubation, short neck, obese, low reserve, easily desat. attempted x 2 with glidescope nursing staff urged to place patient on adequate sedation to prevent self- extubation Medical Decision Making Diagnostic Impression: Primary Impression: Pulmonary edema Additional Impressions: Cellulitis of scrotum Respiratory distress Last Vital Signs Date Time Temp Pulse Resp B/P (MAP) Pulse Ox O2 Delivery O2 Flow Rate FiO2 10/19/17 07:29 66 30 95 Mechanical Ventilator 85 10/19/17 07:00 128/82 10/19/17 04:00 98.9 10/07/17 04:00 2.0 Disposition: ADMITTED INPATIENT Condition: Critical Referrals: NOT CHOSEN BRITNEY/,REFERRING (PCP) Andrew Castellanos M.D. Oct 19, 2017 08:40
--- NOTE | 2017-10-19 09:03 | Pulmonolgy Critical Care Note ---
Critical Care - Asmt/Plan Problems: (1) ARDS (adult respiratory distress syndrome) (2) Acute respiratory failure (3) Cellulitis of scrotum (4) Respiratory distress (5) Pulmonary edema (6) Anasarca (7) scotal cellutis (8) Acute renal failure Assessment/Plan: -Post-intubation CXR -Continue ventilatory support -Continue current settings -Recheck ABG -Consideration for John, paralysis, proning would not be technically feasible -Optimize pulmonary hygiene/mobilize as tolerated -Continue RTC and PRN DUOnebs + NAC HHN's -Continue Abx per ID -Decrease SM to 40 IV BID, taper based on response -F/U viral respiratory panel -F/U autoimmune and atypical serologies (pending) -Would consider discontinuing D5W and repleting CH2O through NGT, 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 - LASIX 40 mg IV x 1 NOW -Unable to do CT chest 2/2 weight -Unable to tx to [facility] 2/2 insurance, awaiting authorization for [facility] -NGTF's as tolerated -DVT Px: Hep SQ -FC, continue to discuss GOC - WILL SET UP FAMILY MEETING D/W PMD, CM, RN, RT,mother and [facility] transfer center CC 45 Critical Care - Objective Last 24 Hour Vital Signs Date Time Temp Pulse Resp B/P (MAP) Pulse Ox O2 Delivery O2 Flow Rate FiO2 10/19/17 07:29 66 30 95 Mechanical Ventilator 85 10/19/17 07:28 66 30 85 10/19/17 07:12 30 10/19/17 07:00 82 30 128/82 92 Mechanical Ventilator 85 10/19/17 07:00 30 10/19/17 07:00 30 10/19/17 06:30 75 30 123/71 92 Mechanical Ventilator 85 10/19/17 06:00 92 30 123/70 92 Mechanical Ventilator 85 10/19/17 06:00 30 10/19/17 06:00 30 10/19/17 05:30 75 30 127/74 95 Mechanical Ventilator 85 10/19/17 05:14 74 32 85 10/19/17 05:00 30 10/19/17 05:00 30 10/19/17 05:00 77 30 120/71 95 Mechanical Ventilator 85 10/19/17 04:30 98 30 122/70 93 Mechanical Ventilator 85 10/19/17 04:00 70 10/19/17 04:00 30 10/19/17 04:00 30 10/19/17 04:00 85 10/19/17 04:00 98.9 90 30 119/66 95 Mechanical Ventilator 85 10/19/17 03:30 70 30 119/66 95 Mechanical Ventilator 85 10/19/17 03:26 73 30 85 10/19/17 03:00 75 30 113/60 95 Mechanical Ventilator 85 10/19/17 03:00 30 10/19/17 03:00 30 10/19/17 02:30 77 30 114/66 95 Mechanical Ventilator 85 10/19/17 02:00 30 10/19/17 02:00 30 10/19/17 02:00 75 30 122/68 95 Mechanical Ventilator 85 10/19/17 01:40 91 30 95 Mechanical Ventilator 85 10/19/17 01:40 96 30 97 Mechanical Ventilator 85 10/19/17 01:30 92 30 85 10/19/17 01:30 82 30 128/76 95 Mechanical Ventilator 85 10/19/17 01:00 30 10/19/17 01:00 30 10/19/17 01:00 89 30 124/76 92 Mechanical Ventilator 85 10/19/17 00:43 30 10/19/17 00:30 94 30 124/76 92 Mechanical Ventilator 85 10/19/17 00:23 30 10/19/17 00:00 99.3 78 30 109/59 93 Mechanical Ventilator 85 10/19/17 00:00 30 10/19/17 00:00 30 10/19/17 00:00 85 10/19/17 00:00 76 10/18/17 23:30 78 30 109/59 93 Mechanical Ventilator 85 10/18/17 23:24 80 30 85 10/18/17 23:00 76 30 112/59 93 Mechanical Ventilator 85 10/18/17 23:00 30 10/18/17 23:00 30 10/18/17 22:30 76 30 112/66 93 Mechanical Ventilator 85 10/18/17 22:00 80 30 115/68 93 Mechanical Ventilator 85 10/18/17 22:00 30 10/18/17 22:00 30 10/18/17 21:30 92 30 119/69 92 Mechanical Ventilator 85 10/18/17 21:29 87 30 85 10/18/17 21:00 30 10/18/17 21:00 30 10/18/17 21:00 78 30 105/73 92 Mechanical Ventilator 85 10/18/17 20:30 78 30 115/66 92 Mechanical Ventilator 85 10/18/17 20:00 82 30 120/65 92 Mechanical Ventilator 85 10/18/17 20:00 84 10/18/17 20:00 30 10/18/17 20:00 30 10/18/17 20:00 85 10/18/17 19:54 94 30 94 Mechanical Ventilator 85 10/18/17 19:50 92 30 93 Mechanical Ventilator 85 10/18/17 19:30 87 30 129/79 92 Mechanical Ventilator 85 10/18/17 19:30 86 31 85 10/18/17 19:00 29 10/18/17 19:00 29 10/18/17 19:00 99.1 71 30 121/71 92 Mechanical Ventilator 85 10/18/17 18:30 74 32 120/64 92 Mechanical Ventilator 85 10/18/17 18:01 30 10/18/17 18:00 30 10/18/17 18:00 104 30 130/76 92 Mechanical Ventilator 85 10/18/17 17:30 96 30 128/75 90 Mechanical Ventilator 85 10/18/17 17:00 30 10/18/17 17:00 30 10/18/17 17:00 71 30 121/75 89 Mechanical Ventilator 85 10/18/17 16:41 75 30 85 10/18/17 16:30 69 30 121/76 89 Mechanical Ventilator 85 10/18/17 16:00 98.6 71 30 119/75 90 Mechanical Ventilator 85 10/18/17 16:00 100 10/18/17 16:00 30 10/18/17 16:00 30 10/18/17 16:00 71 10/18/17 15:49 30 10/18/17 15:30 74 30 118/74 91 Mechanical Ventilator 85 10/18/17 15:21 76 30 85 10/18/17 15:00 86 30 124/67 91 Mechanical Ventilator 85 10/18/17 15:00 30 10/18/17 15:00 30 10/18/17 14:30 69 30 121/75 91 Mechanical Ventilator 85 10/18/17 14:00 69 30 121/75 91 Mechanical Ventilator 85 10/18/17 14:00 30 10/18/17 13:30 70 30 123/76 91 Mechanical Ventilator 85 10/18/17 13:00 68 30 126/78 91 Mechanical Ventilator 85 10/18/17 13:00 30 10/18/17 13:00 30 10/18/17 12:50 75 30 95 Mechanical Ventilator 85 10/18/17 12:43 80 30 85 10/18/17 12:40 70 30 93 Mechanical Ventilator 85 10/18/17 12:30 72 30 119/74 94 Mechanical Ventilator 100 10/18/17 12:00 98.9 76 30 119/74 94 Mechanical Ventilator 100 10/18/17 12:00 100 10/18/17 12:00 75 10/18/17 12:00 30 10/18/17 12:00 30 10/18/17 11:30 77 30 117/67 94 Mechanical Ventilator 100 10/18/17 11:23 87 31 85 10/18/17 11:00 87 30 127/64 94 Mechanical Ventilator 100 10/18/17 11:00 30 10/18/17 11:00 30 10/18/17 10:30 100 30 84/48 93 Mechanical Ventilator 100 10/18/17 10:00 30 10/18/17 10:00 30 10/18/17 10:00 84 30 121/60 96 Mechanical Ventilator 100 10/18/17 09:51 30 10/18/17 09:30 84 30 129/70 97 Mechanical Ventilator 85 10/18/17 09:00 30 10/18/17 09:00 30 10/18/17 09:00 72 30 123/66 97 Mechanical Ventilator 85 10/18/17 08:59 70 30 85 Status: sedated Condition: critical HEENT: atraumatic, normocephalic, other - ETT, NGT Lungs: rales, rhonchi - scattered anterior Heart: HR/BP stable Abdomen: soft, non-tender, active bowel sounds Extremities: edema - 1+ Objective: Scrotal edema, erythema and warmth Accucheck: 129 Critical Care - Subjective ROS Limited/Unobtainable: Yes ICU Day: 12 Intubation Day: 12 Interval Events: S/P FOB CXR inc b pleural effusions Coughed this am and ETT came out Was emergently re-intubated by ERMD 3.8/2.8 (+1L) Condition: critical IV Access: PICC EKG Rhythm: Sinus Rhythm FI02: 85 Vent Support Breath Rate: 30 Vent Support Mode: AC Vent Tidal Volume: 500 Sputum Amount: Small PEEP: 10.0 PIP: 38 Fluids: D5W @ 100 Drips: Propofol gtt Tube Feeding Amount: 40 I&O: Intake and Output 10/18/17 10/19/17 19:00 07:00 Intake Total 2181 ml 1682 ml Output Total 1450 ml 1350 ml Balance 731 ml 332 ml Free Water 40 ml IV Total 1661 ml 1202 ml Tube Feeding 360 ml 480 ml Other 120 ml Output Urine Total 1450 ml 1350 ml CXR: Inc b interstitial opacities and pleural effusions ET-Tube: 7.5 ET Position: 25 Labs: Laboratory Tests Test 10/18/17 14:10 10/19/17 04:30 Arterial Blood pH 7.378 (7.350-7.450) Arterial Blood Partial Pressure CO2 67.1 mmHg (35.0-45.0) *H Arterial Blood Partial Pressure O2 60.3 mmHg (75.0-100.0) L Arterial Blood HCO3 38.6 mmol/L (22.0-26.0) H Arterial Blood Oxygen Saturation 90.4 % (92.0-98.0) L Arterial Blood Base Excess 10.9 Naif Test Positive White Blood Count 13.7 K/UL (4.8-10.8) H Red Blood Count 6.61 M/UL (4.70-6.10) H Hemoglobin 12.2 G/DL (14.2-18.0) L Hematocrit 44.5 % (42.0-52.0) Mean Corpuscular Volume 67 FL (80-99) L Mean Corpuscular Hemoglobin 18.4 PG (27.0-31.0) L Mean Corpuscular Hemoglobin Concent 27.3 G/DL (32.0-36.0) L Red Cell Distribution Width 21.1 % (11.6-14.8) H Platelet Count 245 K/UL (150-450) Mean Platelet Volume 7.5 FL (6.5-10.1) Neutrophils (%) (Auto) % (45.0-75.0) Lymphocytes (%) (Auto) % (20.0-45.0) Monocytes (%) (Auto) % (1.0-10.0) Eosinophils (%) (Auto) % (0.0-3.0) Basophils (%) (Auto) % (0.0-2.0) Sodium Level 144 MMOL/L (136-145) Potassium Level 4.7 MMOL/L (3.5-5.1) Chloride Level 105 MMOL/L (98-107) Carbon Dioxide Level 36 MMOL/L (21-32) H Anion Gap 3 mmol/L (5-15) L Blood Urea Nitrogen 49 mg/dL (7-18) H Creatinine 1.4 MG/DL (0.55-1.30) H Estimat Glomerular Filtration Rate 56.1 mL/min (>60) Glucose Level 154 MG/DL (74-106) H Calcium Level 7.6 MG/DL (8.5-10.1) L Triglycerides Level Pending ASHVIN LOVE M.D. Oct 19, 2017 09:03
[2017-10-19] MEDS: Pantoprazole Inj IV SCH (09:18)
[2017-10-19] MEDS: Docusate 100mg/10ml Liq GT SCH ×2 (09:18→17:50)
[2017-10-19] MEDS: Heparin 5000 units/ml inj SUBQ SCH (09:19)
--- NOTE | 2017-10-19 09:32 | General Progress Note ---
Assessment/Plan Status: stable Assessment/Plan 1. VDRF 2. ARDS-Hypoxemic respiratory failure. 3.Sepsis: Aspiration Gram negative HCA-PNA 4. Gram negative HCA-PNA 5. Cellulitis of the scrotal area. 6. Morbid obesity. 7. ARF 8. Obstructive uropathy 9. Thrombocytopenia. 10. DM-2 11. Anemia. 12. Gastrointestinal and deep vein thrombosis prophylaxes. 13. Psoriasis PLAN OF CARE: NOtes from Infectious Diseases Dr. Pineda, Nephrology, Dr Urrutia, pulmonary Dr Steinberg reviewed Poor Prognosis Transfer to higher level of care?! Palliative extubation? Defer to pulmonary s/P SELF EXTUBATION AND SUCCESSFUL RE-INTUBATION Subjective ROS Limited/Unobtainable: Yes Allergies: Coded Allergies: No Known Allergies (Unverified , 10/06/17) Objective Last 24 Hour Vital Signs Date Time Temp Pulse Resp B/P (MAP) Pulse Ox O2 Delivery O2 Flow Rate FiO2 10/19/17 07:29 66 30 95 Mechanical Ventilator 85 10/19/17 07:28 66 30 85 10/19/17 07:12 30 10/19/17 07:00 82 30 128/82 92 Mechanical Ventilator 85 10/19/17 07:00 30 10/19/17 07:00 30 10/19/17 06:30 75 30 123/71 92 Mechanical Ventilator 85 10/19/17 06:00 92 30 123/70 92 Mechanical Ventilator 85 10/19/17 06:00 30 10/19/17 06:00 30 10/19/17 05:30 75 30 127/74 95 Mechanical Ventilator 85 10/19/17 05:14 74 32 85 10/19/17 05:00 30 10/19/17 05:00 30 10/19/17 05:00 77 30 120/71 95 Mechanical Ventilator 85 10/19/17 04:30 98 30 122/70 93 Mechanical Ventilator 85 10/19/17 04:00 70 10/19/17 04:00 30 10/19/17 04:00 30 10/19/17 04:00 85 10/19/17 04:00 98.9 90 30 119/66 95 Mechanical Ventilator 85 10/19/17 03:30 70 30 119/66 95 Mechanical Ventilator 85 10/19/17 03:26 73 30 85 10/19/17 03:00 75 30 113/60 95 Mechanical Ventilator 85 10/19/17 03:00 30 10/19/17 03:00 30 10/19/17 02:30 77 30 114/66 95 Mechanical Ventilator 85 10/19/17 02:00 30 10/19/17 02:00 30 10/19/17 02:00 75 30 122/68 95 Mechanical Ventilator 85 10/19/17 01:40 91 30 95 Mechanical Ventilator 85 10/19/17 01:40 96 30 97 Mechanical Ventilator 85 10/19/17 01:30 92 30 85 10/19/17 01:30 82 30 128/76 95 Mechanical Ventilator 85 10/19/17 01:00 30 10/19/17 01:00 30 10/19/17 01:00 89 30 124/76 92 Mechanical Ventilator 85 10/19/17 00:43 30 10/19/17 00:30 94 30 124/76 92 Mechanical Ventilator 85 10/19/17 00:23 30 10/19/17 00:00 99.3 78 30 109/59 93 Mechanical Ventilator 85 10/19/17 00:00 30 10/19/17 00:00 30 10/19/17 00:00 85 10/19/17 00:00 76 10/18/17 23:30 78 30 109/59 93 Mechanical Ventilator 85 10/18/17 23:24 80 30 85 10/18/17 23:00 76 30 112/59 93 Mechanical Ventilator 85 10/18/17 23:00 30 10/18/17 23:00 30 10/18/17 22:30 76 30 112/66 93 Mechanical Ventilator 85 10/18/17 22:00 80 30 115/68 93 Mechanical Ventilator 85 10/18/17 22:00 30 10/18/17 22:00 30 10/18/17 21:30 92 30 119/69 92 Mechanical Ventilator 85 10/18/17 21:29 87 30 85 10/18/17 21:00 30 10/18/17 21:00 30 10/18/17 21:00 78 30 105/73 92 Mechanical Ventilator 85 10/18/17 20:30 78 30 115/66 92 Mechanical Ventilator 85 10/18/17 20:00 82 30 120/65 92 Mechanical Ventilator 85 10/18/17 20:00 84 10/18/17 20:00 30 10/18/17 20:00 30 10/18/17 20:00 85 10/18/17 19:54 94 30 94 Mechanical Ventilator 85 10/18/17 19:50 92 30 93 Mechanical Ventilator 85 10/18/17 19:30 87 30 129/79 92 Mechanical Ventilator 85 10/18/17 19:30 86 31 85 10/18/17 19:00 29 10/18/17 19:00 29 10/18/17 19:00 99.1 71 30 121/71 92 Mechanical Ventilator 85 10/18/17 18:30 74 32 120/64 92 Mechanical Ventilator 85 10/18/17 18:01 30 10/18/17 18:00 30 10/18/17 18:00 104 30 130/76 92 Mechanical Ventilator 85 10/18/17 17:30 96 30 128/75 90 Mechanical Ventilator 85 10/18/17 17:00 30 10/18/17 17:00 30 10/18/17 17:00 71 30 121/75 89 Mechanical Ventilator 85 10/18/17 16:41 75 30 85 10/18/17 16:30 69 30 121/76 89 Mechanical Ventilator 85 10/18/17 16:00 98.6 71 30 119/75 90 Mechanical Ventilator 85 10/18/17 16:00 100 10/18/17 16:00 30 10/18/17 16:00 30 10/18/17 16:00 71 10/18/17 15:49 30 10/18/17 15:30 74 30 118/74 91 Mechanical Ventilator 85 10/18/17 15:21 76 30 85 10/18/17 15:00 86 30 124/67 91 Mechanical Ventilator 85 10/18/17 15:00 30 10/18/17 15:00 30 10/18/17 14:30 69 30 121/75 91 Mechanical Ventilator 85 10/18/17 14:00 69 30 121/75 91 Mechanical Ventilator 85 10/18/17 14:00 30 10/18/17 13:30 70 30 123/76 91 Mechanical Ventilator 85 10/18/17 13:00 68 30 126/78 91 Mechanical Ventilator 85 10/18/17 13:00 30 10/18/17 13:00 30 10/18/17 12:50 75 30 95 Mechanical Ventilator 85 10/18/17 12:43 80 30 85 10/18/17 12:40 70 30 93 Mechanical Ventilator 85 10/18/17 12:30 72 30 119/74 94 Mechanical Ventilator 100 10/18/17 12:00 98.9 76 30 119/74 94 Mechanical Ventilator 100 10/18/17 12:00 100 10/18/17 12:00 75 10/18/17 12:00 30 10/18/17 12:00 30 10/18/17 11:30 77 30 117/67 94 Mechanical Ventilator 100 10/18/17 11:23 87 31 85 10/18/17 11:00 87 30 127/64 94 Mechanical Ventilator 100 10/18/17 11:00 30 10/18/17 11:00 30 10/18/17 10:30 100 30 84/48 93 Mechanical Ventilator 100 10/18/17 10:00 30 10/18/17 10:00 30 10/18/17 10:00 84 30 121/60 96 Mechanical Ventilator 100 10/18/17 09:51 30 Intake and Output 10/18/17 10/19/17 19:00 07:00 Intake Total 2181 ml 1682 ml Output Total 1450 ml 1350 ml Balance 731 ml 332 ml Free Water 40 ml IV Total 1661 ml 1202 ml Tube Feeding 360 ml 480 ml Other 120 ml Output Urine Total 1450 ml 1350 ml Laboratory Tests 10/18/17 14:10: Arterial Blood pH 7.378, Arterial Blood Partial Pressure CO2 67.1*H, Arterial Blood Partial Pressure O2 60.3L, Arterial Blood HCO3 38.6H, Arterial Blood Oxygen Saturation 90.4L, Arterial Blood Base Excess 10.9, Naif Test Positive 10/19/17 04:30: White Blood Count 13.7H, Red Blood Count 6.61H, Hemoglobin 12.2L, Hematocrit 44.5, Mean Corpuscular Volume 67L, Mean Corpuscular Hemoglobin 18.4L, Mean Corpuscular Hemoglobin Concent 27.3L, Red Cell Distribution Width 21.1H, Platelet Count 245, Mean Platelet Volume 7.5, Neutrophils (%) (Auto) , Lymphocytes (%) (Auto) , Monocytes (%) (Auto) , Eosinophils (%) (Auto) , Basophils (%) (Auto) , Sodium Level 144, Potassium Level 4.7, Chloride Level 105 , Carbon Dioxide Level 36H, Anion Gap 3L, Blood Urea Nitrogen 49H, Creatinine 1.4H, Estimat Glomerular Filtration Rate 56.1, Glucose Level 154H, Calcium Level 7.6L, Triglycerides Level 100 Height (Feet): 5 Height (Inches): 4.00 Weight (Pounds): 356 General Appearance: other - agitated, post self extubation Neck: supple Cardiovascular: tachycardia Respiratory/Chest: rhonchi - bilaterally Abdomen: soft, other - obese Extremities: non-tender, other Neurologic: visual specialist II-XII grossly normal Nery Combs MD Oct 19, 2017 09:32
--- NOTE | 2017-10-19 10:36 | General Progress Note ---
Progress Note Progress Note ADDENDUM: Patient with progressive hypoxemia, multiple vent changes made at bedside CXR with ETT in R mainstem but aeration of KEVAN and persistent b airspace disease ETT pulled back, IVF stopped, Lasix 80 IV x 1 given, patient on BSABx Extensive discussion @ bedside with patients mother (+ SW, RN and RT) Given poor prognosis decision made by mother to transition to full [employer]. Will continue current measures until family arrives, then will likely palliatively extubate and transition to full comfort measures. PMD notified ASHVIN LOVE M.D. Oct 19, 2017 10:35
--- NOTE | 2017-10-19 10:41 | Diagnostic Imaging Report ---
Indication: Postintubation Technique: XRAY Chest 1v Comparison: 10/18/2017, 11:54 Findings: Advancement of the endotracheal tube, now in the right consistent bronchus. Retraction by 3 cm is recommended for better positioning. Heart size and mediastinal contours are stable. There is persistent interstitial and bilateral airspace disease with dense opacities in the right upper and left lower lung. There is a moderate-sized layering right pleural effusion. Small left pleural effusion is not entirely excluded. There is no pneumothorax. Osseous structures are stable. Right arm PICC line unchanged with its catheter tip in the region of the lower SVC. NG tube courses below the level of diaphragms. Impression: Endotracheal tube in the right mainstem bronchus. Retraction recommended. This was discussed with the treating ICU nurse via telephone conversation 10/19/2017 at 10:30 AM. Additional findings as above.
--- NOTE | 2017-10-19 13:52 | Nephrology Progress Note ---
Assessment/Plan Problem List: (1) Acute respiratory failure (2) Acute renal failure Assessment: with previous urinary out let obstruction Assessment had an episode of spontaneous extubation and reintubation Acute renal failure- Cr same and declining 1.4 today Acute Respiratory distress , ? aspiration pneumonia, intubated ARDS Acute Pulmonary edema Anasarca scotal cellutis Morbid obesity. Thrombocytopenia. Abnormal blood sugar. Anemia. Plan Plan: K and Mag supplement as needed Keep BP in check pulm support avoid nephrotoxics monitor renal parameters per consultants / pulmonary per orders Left ventricular ejection fraction estimated to be grossly normal. Mild left ventricular hypertrophy. Subjective ROS Limited/Unobtainable: Yes Objective Objective Last 24 Hour Vital Signs Date Time Temp Pulse Resp B/P (MAP) Pulse Ox O2 Delivery O2 Flow Rate FiO2 10/19/17 13:45 86 30 89 Mechanical Ventilator 100 10/19/17 13:31 104 30 100 10/19/17 13:30 85 30 130/63 88 Mechanical Ventilator 85 10/19/17 13:25 96 30 89 Mechanical Ventilator 85 10/19/17 13:00 89 30 120/69 89 Mechanical Ventilator 85 10/19/17 12:30 70 30 123/70 89 Mechanical Ventilator 85 10/19/17 12:00 98.8 77 30 121/70 93 Mechanical Ventilator 85 10/19/17 12:00 85 10/19/17 12:00 73 10/19/17 11:50 71 30 100 10/19/17 11:30 69 30 121/70 90 Mechanical Ventilator 85 10/19/17 11:00 70 30 118/66 89 Mechanical Ventilator 85 10/19/17 10:55 12 10/19/17 10:30 76 30 129/66 85 Mechanical Ventilator 85 10/19/17 10:05 98.9 10/19/17 10:05 98.9 10/19/17 10:00 77 30 124/72 77 Mechanical Ventilator 85 10/19/17 09:43 66 30 100 10/19/17 09:35 15 10/19/17 09:30 66 30 85 10/19/17 09:30 79 30 123/68 90 Mechanical Ventilator 85 10/19/17 09:00 88 30 119/60 90 Mechanical Ventilator 85 10/19/17 08:30 93 30 128/72 90 Mechanical Ventilator 85 10/19/17 08:20 85 10/19/17 08:00 117 30 120/69 81 Mechanical Ventilator 85 10/19/17 08:00 96 10/19/17 07:37 66 30 96 Mechanical Ventilator 85 10/19/17 07:30 98.8 87 30 128/87 93 Mechanical Ventilator 85 10/19/17 07:29 66 30 95 Mechanical Ventilator 85 10/19/17 07:28 66 30 85 10/19/17 07:12 30 10/19/17 07:00 82 30 128/82 92 Mechanical Ventilator 85 10/19/17 07:00 30 10/19/17 07:00 30 10/19/17 06:30 75 30 123/71 92 Mechanical Ventilator 85 10/19/17 06:00 92 30 123/70 92 Mechanical Ventilator 85 10/19/17 06:00 30 10/19/17 06:00 30 10/19/17 05:30 75 30 127/74 95 Mechanical Ventilator 85 10/19/17 05:14 74 32 85 10/19/17 05:00 30 10/19/17 05:00 30 10/19/17 05:00 77 30 120/71 95 Mechanical Ventilator 85 10/19/17 04:30 98 30 122/70 93 Mechanical Ventilator 85 10/19/17 04:00 70 10/19/17 04:00 30 10/19/17 04:00 30 10/19/17 04:00 85 10/19/17 04:00 98.9 90 30 119/66 95 Mechanical Ventilator 85 10/19/17 03:30 70 30 119/66 95 Mechanical Ventilator 85 10/19/17 03:26 73 30 85 10/19/17 03:00 75 30 113/60 95 Mechanical Ventilator 85 10/19/17 03:00 30 10/19/17 03:00 30 10/19/17 02:30 77 30 114/66 95 Mechanical Ventilator 85 10/19/17 02:00 30 10/19/17 02:00 30 10/19/17 02:00 75 30 122/68 95 Mechanical Ventilator 85 10/19/17 01:40 91 30 95 Mechanical Ventilator 85 10/19/17 01:40 96 30 97 Mechanical Ventilator 85 10/19/17 01:30 92 30 85 10/19/17 01:30 82 30 128/76 95 Mechanical Ventilator 85 10/19/17 01:00 30 10/19/17 01:00 30 10/19/17 01:00 89 30 124/76 92 Mechanical Ventilator 85 10/19/17 00:43 30 10/19/17 00:30 94 30 124/76 92 Mechanical Ventilator 85 10/19/17 00:23 30 10/19/17 00:00 99.3 78 30 109/59 93 Mechanical Ventilator 85 10/19/17 00:00 30 10/19/17 00:00 30 10/19/17 00:00 85 10/19/17 00:00 76 10/18/17 23:30 78 30 109/59 93 Mechanical Ventilator 85 10/18/17 23:24 80 30 85 10/18/17 23:00 76 30 112/59 93 Mechanical Ventilator 85 10/18/17 23:00 30 10/18/17 23:00 30 10/18/17 22:30 76 30 112/66 93 Mechanical Ventilator 85 10/18/17 22:00 80 30 115/68 93 Mechanical Ventilator 85 10/18/17 22:00 30 10/18/17 22:00 30 10/18/17 21:30 92 30 119/69 92 Mechanical Ventilator 85 10/18/17 21:29 87 30 85 10/18/17 21:00 30 10/18/17 21:00 30 10/18/17 21:00 78 30 105/73 92 Mechanical Ventilator 85 10/18/17 20:30 78 30 115/66 92 Mechanical Ventilator 85 10/18/17 20:00 82 30 120/65 92 Mechanical Ventilator 85 10/18/17 20:00 84 10/18/17 20:00 30 10/18/17 20:00 30 10/18/17 20:00 85 10/18/17 19:54 94 30 94 Mechanical Ventilator 85 10/18/17 19:50 92 30 93 Mechanical Ventilator 85 10/18/17 19:30 87 30 129/79 92 Mechanical Ventilator 85 10/18/17 19:30 86 31 85 10/18/17 19:00 29 10/18/17 19:00 29 10/18/17 19:00 99.1 71 30 121/71 92 Mechanical Ventilator 85 10/18/17 18:30 74 32 120/64 92 Mechanical Ventilator 85 10/18/17 18:01 30 10/18/17 18:00 30 10/18/17 18:00 104 30 130/76 92 Mechanical Ventilator 85 10/18/17 17:30 96 30 128/75 90 Mechanical Ventilator 85 10/18/17 17:00 30 10/18/17 17:00 30 10/18/17 17:00 71 30 121/75 89 Mechanical Ventilator 85 10/18/17 16:41 75 30 85 10/18/17 16:30 69 30 121/76 89 Mechanical Ventilator 85 10/18/17 16:00 98.6 71 30 119/75 90 Mechanical Ventilator 85 10/18/17 16:00 100 10/18/17 16:00 30 10/18/17 16:00 30 10/18/17 16:00 71 10/18/17 15:49 30 10/18/17 15:30 74 30 118/74 91 Mechanical Ventilator 85 10/18/17 15:21 76 30 85 10/18/17 15:00 86 30 124/67 91 Mechanical Ventilator 85 10/18/17 15:00 30 10/18/17 15:00 30 10/18/17 14:30 69 30 121/75 91 Mechanical Ventilator 85 10/18/17 14:00 69 30 121/75 91 Mechanical Ventilator 85 10/18/17 14:00 30 Intake and Output 10/18/17 10/19/17 19:00 07:00 Intake Total 2181 ml 1682 ml Output Total 1450 ml 1350 ml Balance 731 ml 332 ml Free Water 40 ml IV Total 1661 ml 1202 ml Tube Feeding 360 ml 480 ml Other 120 ml Output Urine Total 1450 ml 1350 ml Laboratory Tests 10/18/17 14:10: Arterial Blood pH 7.378, Arterial Blood Partial Pressure CO2 67.1*H, Arterial Blood Partial Pressure O2 60.3L, Arterial Blood HCO3 38.6H, Arterial Blood Oxygen Saturation 90.4L, Arterial Blood Base Excess 10.9, Naif Test Positive 10/19/17 04:30: White Blood Count 13.7H, Red Blood Count 6.61H, Hemoglobin 12.2L, Hematocrit 44.5, Mean Corpuscular Volume 67L, Mean Corpuscular Hemoglobin 18.4L, Mean Corpuscular Hemoglobin Concent 27.3L, Red Cell Distribution Width 21.1H, Platelet Count 245, Mean Platelet Volume 7.5, Neutrophils (%) (Auto) , Lymphocytes (%) (Auto) , Monocytes (%) (Auto) , Eosinophils (%) (Auto) , Basophils (%) (Auto) , Sodium Level 144, Potassium Level 4.7, Chloride Level 105 , Carbon Dioxide Level 36H, Anion Gap 3L, Blood Urea Nitrogen 49H, Creatinine 1.4H, Estimat Glomerular Filtration Rate 56.1, Glucose Level 154H, Calcium Level 7.6L, Triglycerides Level 100 10/19/17 09:06: Arterial Blood pH 7.396, Arterial Blood Partial Pressure CO2 59.7*H, Arterial Blood Partial Pressure O2 43.0*L, Arterial Blood HCO3 35.8H, Arterial Blood Oxygen Saturation 77.4L, Arterial Blood Base Excess 8.9, Naif Test [Pending] Height (Feet): 5 Height (Inches): 4.00 Weight (Pounds): 356 General Appearance: no apparent distress Objective no other change JYA YANCEY Oct 19, 2017 13:52
[2017-10-19] MEDS ORDERED: Solu-MEDROL 40mg Inj IVP SCH (18:00)
--- NOTE | 2017-10-19 19:29 | Infectious Diseases Prog Note ---
Assessment/Plan Assessment/Plan ASSESSMENT: The patient is a 42-year-old male with, Leukocytosis ( on steroids ) Fever low grade , SP Possible aspiration pneumonia versus community-acquired pneumonia. Scx : P mirabilis , 10/13 C-Xray worsening of infiltrate vs edema Probable scrotal cellulitis versus discoloration of genitalia due to edema. CRP 09/15 HIV , Crypt : neg U leg Ab : neg ARDS CORA improving PICC 10/09 VDRF self extub and reintubated 10/19 Congestive heart failure. PLAN: Cont pt on Merrem d# 7/ 10 , Diflucan d# 3 ( Empiric for possible coccidio ) 10/17 sp vancomycin and Doxy d# 10 / 10/13 sp Zosyn d# 5 Monitor CBC. Monitor BMP. Monitor cultures ( SP) Continue vent support. Monitor chest x-ray Fungal serology ordered by Pul BAL Cx " P Fungitell Subjective Allergies: Coded Allergies: No Known Allergies (Unverified , 10/06/17) Subjective on Vent Objective Vital Signs Last 24 Hour Vital Signs Date Time Temp Pulse Resp B/P (MAP) Pulse Ox O2 Delivery O2 Flow Rate FiO2 10/19/17 19:09 75 30 95 Mechanical Ventilator 100 10/19/17 19:07 73 30 85 10/19/17 19:00 74 29 99/49 93 Mechanical Ventilator 85 10/19/17 18:57 98.2 10/19/17 18:57 98.2 10/19/17 18:30 73 27 99/41 93 Mechanical Ventilator 85 10/19/17 18:29 20 10/19/17 18:23 20 10/19/17 18:00 74 29 100/53 93 Mechanical Ventilator 85 10/19/17 17:33 84 30 100 10/19/17 17:32 Mechanical Ventilator 100 10/19/17 17:30 74 29 100/57 93 Mechanical Ventilator 85 10/19/17 17:00 79 18 104/59 91 Mechanical Ventilator 85 10/19/17 16:30 81 11 108/57 93 Mechanical Ventilator 85 10/19/17 16:00 85 10/19/17 16:00 98.2 79 18 120/60 80 Mechanical Ventilator 85 10/19/17 16:00 81 10/19/17 15:33 18 10/19/17 15:30 90 15 114/62 90 Mechanical Ventilator 85 10/19/17 15:30 84 30 100 10/19/17 15:00 80 27 119/62 90 Mechanical Ventilator 85 10/19/17 14:30 85 30 119/59 90 Mechanical Ventilator 85 10/19/17 14:00 85 30 119/59 90 Mechanical Ventilator 85 10/19/17 14:00 15 10/19/17 13:45 86 30 89 Mechanical Ventilator 100 10/19/17 13:31 104 30 100 10/19/17 13:30 85 30 130/63 88 Mechanical Ventilator 85 10/19/17 13:25 96 30 89 Mechanical Ventilator 85 10/19/17 13:00 89 30 120/69 89 Mechanical Ventilator 85 10/19/17 12:30 70 30 123/70 89 Mechanical Ventilator 85 10/19/17 12:00 98.8 77 30 121/70 93 Mechanical Ventilator 85 10/19/17 12:00 85 10/19/17 12:00 73 10/19/17 11:50 71 30 100 10/19/17 11:30 69 30 121/70 90 Mechanical Ventilator 85 10/19/17 11:00 70 30 118/66 89 Mechanical Ventilator 85 10/19/17 10:55 12 10/19/17 10:30 76 30 129/66 85 Mechanical Ventilator 85 10/19/17 10:00 77 30 124/72 77 Mechanical Ventilator 85 10/19/17 09:43 66 30 100 10/19/17 09:35 15 10/19/17 09:30 66 30 85 10/19/17 09:30 79 30 123/68 90 Mechanical Ventilator 85 10/19/17 09:00 88 30 119/60 90 Mechanical Ventilator 85 10/19/17 08:30 93 30 128/72 90 Mechanical Ventilator 85 10/19/17 08:20 85 10/19/17 08:00 117 30 120/69 81 Mechanical Ventilator 85 10/19/17 08:00 96 10/19/17 07:37 66 30 96 Mechanical Ventilator 85 10/19/17 07:30 98.8 87 30 128/87 93 Mechanical Ventilator 85 10/19/17 07:29 66 30 95 Mechanical Ventilator 85 10/19/17 07:28 66 30 85 10/19/17 07:12 30 10/19/17 07:00 82 30 128/82 92 Mechanical Ventilator 85 10/19/17 07:00 30 10/19/17 07:00 30 10/19/17 06:30 75 30 123/71 92 Mechanical Ventilator 85 10/19/17 06:00 92 30 123/70 92 Mechanical Ventilator 85 10/19/17 06:00 30 10/19/17 06:00 30 10/19/17 05:30 75 30 127/74 95 Mechanical Ventilator 85 10/19/17 05:14 74 32 85 10/19/17 05:00 30 10/19/17 05:00 30 10/19/17 05:00 77 30 120/71 95 Mechanical Ventilator 85 10/19/17 04:30 98 30 122/70 93 Mechanical Ventilator 85 10/19/17 04:00 70 10/19/17 04:00 30 10/19/17 04:00 30 10/19/17 04:00 85 10/19/17 04:00 98.9 90 30 119/66 95 Mechanical Ventilator 85 10/19/17 03:30 70 30 119/66 95 Mechanical Ventilator 85 10/19/17 03:26 73 30 85 10/19/17 03:00 75 30 113/60 95 Mechanical Ventilator 85 10/19/17 03:00 30 10/19/17 03:00 30 10/19/17 02:30 77 30 114/66 95 Mechanical Ventilator 85 10/19/17 02:00 30 10/19/17 02:00 30 10/19/17 02:00 75 30 122/68 95 Mechanical Ventilator 85 10/19/17 01:40 91 30 95 Mechanical Ventilator 85 10/19/17 01:40 96 30 97 Mechanical Ventilator 85 10/19/17 01:30 92 30 85 10/19/17 01:30 82 30 128/76 95 Mechanical Ventilator 85 10/19/17 01:00 30 10/19/17 01:00 30 10/19/17 01:00 89 30 124/76 92 Mechanical Ventilator 85 10/19/17 00:43 30 10/19/17 00:30 94 30 124/76 92 Mechanical Ventilator 85 10/19/17 00:23 30 10/19/17 00:00 99.3 78 30 109/59 93 Mechanical Ventilator 85 10/19/17 00:00 30 10/19/17 00:00 30 10/19/17 00:00 85 10/19/17 00:00 76 10/18/17 23:30 78 30 109/59 93 Mechanical Ventilator 85 10/18/17 23:24 80 30 85 10/18/17 23:00 76 30 112/59 93 Mechanical Ventilator 85 10/18/17 23:00 30 10/18/17 23:00 30 10/18/17 22:30 76 30 112/66 93 Mechanical Ventilator 85 10/18/17 22:00 80 30 115/68 93 Mechanical Ventilator 85 10/18/17 22:00 30 10/18/17 22:00 30 10/18/17 21:30 92 30 119/69 92 Mechanical Ventilator 85 10/18/17 21:29 87 30 85 10/18/17 21:00 30 10/18/17 21:00 30 10/18/17 21:00 78 30 105/73 92 Mechanical Ventilator 85 10/18/17 20:30 78 30 115/66 92 Mechanical Ventilator 85 10/18/17 20:00 82 30 120/65 92 Mechanical Ventilator 85 10/18/17 20:00 84 10/18/17 20:00 30 10/18/17 20:00 30 10/18/17 20:00 85 10/18/17 19:54 94 30 94 Mechanical Ventilator 85 10/18/17 19:50 92 30 93 Mechanical Ventilator 85 10/18/17 19:30 87 30 129/79 92 Mechanical Ventilator 85 10/18/17 19:30 86 31 85 Height (Feet): 5 Height (Inches): 4.00 Weight (Pounds): 356 HEENT: mucous membranes moist Respiratory/Chest: no respiratory distress Cardiovascular: regularly irregular Abdomen: non distended Microbiology Date/Time Source Procedure Growth Status 10/18/17 20:30 Bronchial Washings Not Specified Gram Stain - Final Resulted 10/18/17 20:30 Bronchial Washings Not Specified Bronchial Aspirate Culture Pending Resulted Laboratory Tests Test 10/19/17 04:30 10/19/17 09:06 White Blood Count 13.7 K/UL (4.8-10.8) H Red Blood Count 6.61 M/UL (4.70-6.10) H Hemoglobin 12.2 G/DL (14.2-18.0) L Hematocrit 44.5 % (42.0-52.0) Mean Corpuscular Volume 67 FL (80-99) L Mean Corpuscular Hemoglobin 18.4 PG (27.0-31.0) L Mean Corpuscular Hemoglobin Concent 27.3 G/DL (32.0-36.0) L Red Cell Distribution Width 21.1 % (11.6-14.8) H Platelet Count 245 K/UL (150-450) Mean Platelet Volume 7.5 FL (6.5-10.1) Neutrophils (%) (Auto) % (45.0-75.0) Lymphocytes (%) (Auto) % (20.0-45.0) Monocytes (%) (Auto) % (1.0-10.0) Eosinophils (%) (Auto) % (0.0-3.0) Basophils (%) (Auto) % (0.0-2.0) Sodium Level 144 MMOL/L (136-145) Potassium Level 4.7 MMOL/L (3.5-5.1) Chloride Level 105 MMOL/L (98-107) Carbon Dioxide Level 36 MMOL/L (21-32) H Anion Gap 3 mmol/L (5-15) L Blood Urea Nitrogen 49 mg/dL (7-18) H Creatinine 1.4 MG/DL (0.55-1.30) H Estimat Glomerular Filtration Rate 56.1 mL/min (>60) Glucose Level 154 MG/DL (74-106) H Calcium Level 7.6 MG/DL (8.5-10.1) L Triglycerides Level 100 MG/DL (30-150) Arterial Blood pH 7.396 (7.350-7.450) Arterial Blood Partial Pressure CO2 59.7 mmHg (35.0-45.0) *H Arterial Blood Partial Pressure O2 43.0 mmHg (75.0-100.0) Arterial Blood HCO3 35.8 mmol/L (22.0-26.0) H Arterial Blood Oxygen Saturation 77.4 % (92.0-98.0) L Arterial Blood Base Excess 8.9 Naif Test Pending Current Medications Medications (Trade) Dose Ordered Sig/Prince Route PRN Reason Start Time Stop Time Status Last Admin Dose Admin Acetaminophen (Tylenol) 650 mg EVERY 4 HOURS PRN NG Mild Pain/Temp > 100.5 10/09/17 10:15 11/08/17 10:14 10/14/17 00:40 Acetylcysteine (Mucomyst) 200 mg Q6HRT HHN 10/15/17 13:00 1/17/18 12:59 10/19/17 13:00 Albuterol/ Ipratropium (Albuterol/ Ipratropium) 3 ml Q4H PRN HHN Shortness of Breath 10/15/17 08:45 10/20/17 08:44 Albuterol/ Ipratropium (Albuterol/ Ipratropium) 3 ml Q6HRT HHN 10/15/17 13:00 10/20/17 12:59 10/19/17 19:11 Chlorhexidine Gluconate (Sol-Hex 2%) 1 applic DAILY@2000 TOPIC 10/09/17 20:00 11/08/17 19:59 10/18/17 19:40 Dextrose (Dextrose 50%) STAT PRN IV Hypoglycemia 10/12/17 11:00 11/11/17 10:59 Docusate Sodium (Colace) 100 mg BID GT 10/13/17 17:00 11/12/17 16:59 10/19/17 17:50 Fentanyl Citrate 1000 mcg/Sodium Chloride 100 ml @ 0 mls/hr Q24H IV 10/14/17 19:00 10/21/17 18:59 10/19/17 18:23 Fluconazole/ Sodium Chloride 200 ml @ 100 mls/hr Q24H IV 10/17/17 12:00 10/24/17 11:59 10/19/17 12:03 Furosemide (Lasix) 40 mg EVERY 12 HOURS IV 10/19/17 21:00 11/18/17 20:59 Haloperidol Lactate 5 mg/ Dextrose 56 ml @ 224 mls/hr Q1H PRN IVPB BREAKTHROUGH AGITATION 10/08/17 17:00 11/07/17 16:59 10/17/17 02:23 Heparin Sodium (Porcine) (Heparin 5000 units/ml) 5,000 units DAILY SUBQ 10/08/17 11:00 11/07/17 10:59 10/19/17 09:19 Insulin Aspart (NovoLOG) BEFORE MEALS AND HS SUBQ 10/12/17 11:30 11/11/17 11:29 10/19/17 15:28 Lorazepam (Ativan 2mg/ml 1ml) 2 mg Q4H PRN IV For Anxiety 10/14/17 14:00 10/21/17 13:59 10/18/17 21:46 Magnesium Hydroxide (Mom) 30 ml DAILYPRN PRN GT Constipation 10/13/17 16:30 11/12/17 16:29 10/14/17 21:39 Meropenem 1 gm/ Sodium Chloride 55 ml @ 110 mls/hr Q12HR@0400,1600 IVPB 10/13/17 16:00 10/19/17 23:59 10/19/17 15:30 Methylprednisolone Sodium Succinate (Solu-MEDROL) 40 mg Q12HR IVP 10/19/17 21:00 11/18/17 20:59 Midazolam HCl 100 ml @ 0 mls/hr Q24H PRN IVPB To Patient Comfort 10/15/17 08:00 10/22/17 07:59 10/19/17 18:29 Pantoprazole (Protonix) 40 mg DAILY IV 10/07/17 11:00 11/06/17 10:59 10/19/17 09:18 CATALINA PARRA M.D. Oct 19, 2017 19:29
[2017-10-19] MEDS: Dyna-Hex 2% Top Sol 2oz TOPIC SCH (19:38)
[2017-10-19] MEDS: LORazepam Inj 2mg/ml 1ml IV PRN (19:55)
[2017-10-19] MEDS: Milk of Magnesia 30ml Ud GT PRN (21:01)
[2017-10-19] MEDS: Acetaminophen 650mg/20.3ml NG PRN (21:01)
[2017-10-20] VITALS (48 sets, daily range): BP systolic 109–121; BP diastolic 49–65
[2017-10-20] MEDS: Acetaminophen 650mg/20.3ml NG PRN ×3 (01:00→23:58)
[2017-10-20] MEDS: Albuterol/Ipratropium 3ml neb HHN SCH ×3 (01:07→19:21)
[2017-10-20] MEDS: Acetylcysteine 20% Soln 4ml HHN SCH ×4 (01:07→19:21)
[2017-10-20] MEDS: Midazolam/D5W 100ml 100 ML IVPB PRN ×8 (01:58→23:56)
[2017-10-20] MEDS: LORazepam Inj 2mg/ml 1ml IV PRN (02:31)
[2017-10-20] MEDS: NovoLOG Insulin Flexpen SUBQ SCH ×4 (06:17→20:41)
[2017-10-20] MEDS: Pantoprazole Inj IV SCH (08:10)
[2017-10-20] MEDS: Docusate 100mg/10ml Liq GT SCH ×2 (08:10→17:42)
[2017-10-20] MEDS: Solu-MEDROL 40mg Inj IVP SCH ×2 (08:10→20:40)
[2017-10-20] MEDS: Heparin 5000 units/ml inj SUBQ SCH (08:12)
--- NOTE | 2017-10-20 08:49 | Pulmonolgy Critical Care Note ---
Critical Care - Asmt/Plan Problems: (1) ARDS (adult respiratory distress syndrome) (2) Acute respiratory failure (3) Cellulitis of scrotum (4) Respiratory distress (5) Pulmonary edema (6) Anasarca (7) scotal cellutis (8) Acute renal failure Assessment/Plan: -Repeat CXR -Repeat ABG -AML labs pending -Continue ventilatory support -Continue current settings -Titrate down FiO2 to keep SaO2 > 90%, keep PEEP as is for now -D/W RT, there in not John @ [facility], consider paralysis, proning would not be technically feasible -Optimize pulmonary hygiene/mobilize as tolerated -Continue RTC and PRN DUOnebs + NAC HHN's -Observer off Abx per ID -Continue SM 40 IV BID, taper slowly -F/U BAL studies -Monitor volumes and renal function --> CONTINUE LASIX 40 IV BID, no fluids -Unable to do CT chest 2/2 weight -Unable to tx to [facility] 2/2 insurance, awaiting authorization for [facility] -NGTF's as tolerated -DVT Px: Hep SQ -FC, continue to discuss GOC with family CC 45 Critical Care - Objective Last 24 Hour Vital Signs Date Time Temp Pulse Resp B/P (MAP) Pulse Ox O2 Delivery O2 Flow Rate FiO2 10/20/17 07:48 78 30 93 Mechanical Ventilator 100 10/20/17 07:32 66 30 94 Mechanical Ventilator 100 10/20/17 07:31 68 30 100 10/20/17 07:00 77 27 110/60 97 Mechanical Ventilator 100 10/20/17 07:00 27 10/20/17 07:00 27 10/20/17 06:30 67 27 112/59 95 Mechanical Ventilator 100 10/20/17 06:00 67 24 115/59 95 Mechanical Ventilator 100 10/20/17 06:00 27 10/20/17 06:00 27 10/20/17 05:46 22 10/20/17 05:30 100.1 74 18 115/57 95 Mechanical Ventilator 100 10/20/17 05:00 71 27 116/57 95 Mechanical Ventilator 100 10/20/17 05:00 24 10/20/17 04:55 70 30 100 10/20/17 04:30 70 24 118/61 95 Mechanical Ventilator 100 10/20/17 04:02 76 10/20/17 04:00 16 10/20/17 04:00 100 10/20/17 04:00 100.1 77 14 116/60 95 Mechanical Ventilator 100 10/20/17 03:30 94 26 116/61 95 Mechanical Ventilator 100 10/20/17 03:28 90 30 85 10/20/17 03:00 95 23 112/50 93 Mechanical Ventilator 100 10/20/17 03:00 23 10/20/17 03:00 23 10/20/17 02:30 82 28 117/53 93 Mechanical Ventilator 100 10/20/17 02:00 99.9 92 30 119/56 92 Mechanical Ventilator 100 10/20/17 01:58 21 10/20/17 01:56 21 10/20/17 01:30 85 20 114/49 92 Mechanical Ventilator 100 10/20/17 01:30 101.3 10/20/17 01:20 84 30 93 Mechanical Ventilator 100 10/20/17 01:06 76 30 93 Mechanical Ventilator 100 10/20/17 01:05 75 33 85 10/20/17 01:00 26 10/20/17 01:00 26 10/20/17 01:00 101.3 77 26 118/59 93 Mechanical Ventilator 100 10/20/17 00:30 87 31 121/59 93 Mechanical Ventilator 100 10/20/17 00:00 100 10/20/17 00:00 100.3 77 25 114/56 92 Mechanical Ventilator 100 10/20/17 00:00 25 10/19/17 23:47 77 10/19/17 23:30 82 23 108/53 93 Mechanical Ventilator 100 10/19/17 23:26 81 32 85 10/19/17 23:00 78 19 110/54 92 Mechanical Ventilator 100 10/19/17 23:00 24 10/19/17 23:00 24 10/19/17 22:33 28 10/19/17 22:30 82 24 117/58 92 Mechanical Ventilator 100 10/19/17 22:00 83 24 113/53 94 Mechanical Ventilator 100 10/19/17 22:00 24 10/19/17 22:00 24 10/19/17 21:30 83 26 105/49 94 Mechanical Ventilator 100 10/19/17 21:23 82 34 85 10/19/17 21:15 82 30 109/54 94 Mechanical Ventilator 100 10/19/17 21:00 30 10/19/17 21:00 30 10/19/17 21:00 86 30 119/55 94 Mechanical Ventilator 100 10/19/17 20:45 89 30 110/54 94 Mechanical Ventilator 100 10/19/17 20:30 99.8 93 28 114/52 92 Mechanical Ventilator 100 10/19/17 20:15 93 15 113/54 92 Mechanical Ventilator 100 10/19/17 20:15 15 10/19/17 20:15 16 10/19/17 20:00 95 16 118/60 92 Mechanical Ventilator 100 10/19/17 20:00 16 10/19/17 20:00 16 10/19/17 20:00 100 10/19/17 19:59 93 10/19/17 19:45 16 10/19/17 19:45 92 16 116/60 92 Mechanical Ventilator 100 10/19/17 19:30 89 30 116/61 91 Mechanical Ventilator 100 10/19/17 19:30 19 10/19/17 19:30 19 10/19/17 19:25 90 30 95 Mechanical Ventilator 100 10/19/17 19:09 75 30 95 Mechanical Ventilator 100 10/19/17 19:07 73 30 85 10/19/17 19:00 74 29 99/49 93 Mechanical Ventilator 85 10/19/17 18:57 98.2 10/19/17 18:57 98.2 10/19/17 18:30 73 27 99/41 93 Mechanical Ventilator 85 10/19/17 18:29 20 10/19/17 18:23 20 10/19/17 18:00 74 29 100/53 93 Mechanical Ventilator 85 10/19/17 17:33 84 30 100 10/19/17 17:32 Mechanical Ventilator 100 10/19/17 17:30 74 29 100/57 93 Mechanical Ventilator 85 10/19/17 17:00 79 18 104/59 91 Mechanical Ventilator 85 10/19/17 16:30 81 11 108/57 93 Mechanical Ventilator 85 10/19/17 16:00 85 10/19/17 16:00 98.2 79 18 120/60 80 Mechanical Ventilator 85 10/19/17 16:00 81 10/19/17 15:33 18 10/19/17 15:30 90 15 114/62 90 Mechanical Ventilator 85 10/19/17 15:30 84 30 100 10/19/17 15:00 80 27 119/62 90 Mechanical Ventilator 85 10/19/17 14:30 85 30 119/59 90 Mechanical Ventilator 85 10/19/17 14:00 85 30 119/59 90 Mechanical Ventilator 85 10/19/17 14:00 15 10/19/17 13:45 86 30 89 Mechanical Ventilator 100 10/19/17 13:31 104 30 100 10/19/17 13:30 85 30 130/63 88 Mechanical Ventilator 85 10/19/17 13:25 96 30 89 Mechanical Ventilator 85 10/19/17 13:00 89 30 120/69 89 Mechanical Ventilator 85 10/19/17 12:30 70 30 123/70 89 Mechanical Ventilator 85 10/19/17 12:00 98.8 77 30 121/70 93 Mechanical Ventilator 85 10/19/17 12:00 85 10/19/17 12:00 73 10/19/17 11:50 71 30 100 10/19/17 11:30 69 30 121/70 90 Mechanical Ventilator 85 10/19/17 11:00 70 30 118/66 89 Mechanical Ventilator 85 10/19/17 10:55 12 10/19/17 10:30 76 30 129/66 85 Mechanical Ventilator 85 10/19/17 10:00 77 30 124/72 77 Mechanical Ventilator 85 10/19/17 09:43 66 30 100 10/19/17 09:35 15 10/19/17 09:30 66 30 85 10/19/17 09:30 79 30 123/68 90 Mechanical Ventilator 85 10/19/17 09:00 88 30 119/60 90 Mechanical Ventilator 85 Status: sedated Condition: critical HEENT: atraumatic, normocephalic, other - ETT, NGT Lungs: rhonchi - anterior Heart: HR/BP stable, edema Abdomen: soft, non-tender, active bowel sounds Extremities: edema - 1+ Objective: Scrotal edema, erythema and warmth Micro: Microbiology Date/Time Source Procedure Growth Status 10/18/17 20:30 Bronchial Washings Not Specified Gram Stain - Final Resulted 10/18/17 20:30 Bronchial Washings Not Specified Bronchial Aspirate Culture Pending Resulted Accucheck: 144 Blood Sugars: BS controlled Critical Care - Subjective ROS Limited/Unobtainable: Yes ICU Day: 13 Intubation Day: 13 (re-intubation D1) Interval Events: Initially family opted towards [facility] but after further discussions they decided they are not ready to withdraw care. They want to continue with current measures. diuresed aggressively, oxygenation improved, no change in secretions, sedated, AML pending Condition: critical IV Access: PICC EKG Rhythm: Sinus Rhythm FI02: 100 Vent Support Breath Rate: 30 Vent Support Mode: AC Vent Tidal Volume: 500 Sputum Amount: Scant PEEP: 10.0 PIP: 40 Drips: Fent and Versed --> RASS -2 Tube Feeding Amount: 40 Residuals: None I&O: Intake and Output 10/19/17 10/20/17 19:00 07:00 Intake Total 1457 ml 1135.5 ml Output Total 2560 ml 2980 ml Balance -1103 ml -1844.5 ml IV Total 977 ml 505.5 ml Tube Feeding 480 ml 480 ml Other 150 ml Output Urine Total 2560 ml 2980 ml Subjective: Not obtainable CXR: Post intubation CXR with ETT in R mainstem --> tube pulled back ET-Tube: 7.5 ET Position: 25 Labs: Laboratory Tests Test 10/19/17 09:06 Arterial Blood pH 7.396 (7.350-7.450) Arterial Blood Partial Pressure CO2 59.7 mmHg (35.0-45.0) *H Arterial Blood Partial Pressure O2 43.0 mmHg (75.0-100.0) Arterial Blood HCO3 35.8 mmol/L (22.0-26.0) H Arterial Blood Oxygen Saturation 77.4 % (92.0-98.0) L Arterial Blood Base Excess 8.9 Niaf Test Pending ASHVIN LOVE M.D. Oct 20, 2017 08:49
--- NOTE | 2017-10-20 09:54 | Diagnostic Imaging Report ---
Indication: COPD Technique: XRAY Chest 1v Comparison: 10/19/2017 Findings: Endotracheal tube, PICC line and NG tube unchanged in position. Heart and mediastinum are obscured by overlying parenchymal disease but likely stable. There is persistent extensive dense bilateral airspace disease. There is slight interval decrease in right-sided pleural fluid is no definite pneumothorax. No acute osseous abnormality seen. Impression: Extensive bilateral airspace opacifications. Slight interval decrease in right-sided pleural fluid compared to one day prior.
[2017-10-20 10:52] LABS: HEMATOCRIT 46.1 % (42.0-52.0); HEMOGLOBIN 12.6 G/DL (14.2-18.0); MEAN CORPUSCULAR VOLUME 67 FL (80-99); PLATELET COUNT 259 K/UL (150-450); RED BLOOD COUNT 6.91 M/UL (4.70-6.10)
[2017-10-20 11:05] LABS: ALANINE AMINOTRANSFERASE 42 U/L (12-78); ALBUMIN 2.1 G/DL (3.4-5.0); ALBUMIN/GLOBULIN RATIO 0.5 (1.0-2.7); ALKALINE PHOSPHATASE 100 U/L (46-116); ASPARTATE AMINO TRANSFERASE 32 U/L (15-37); BILIRUBIN,TOTAL 0.9 MG/DL (0.2-1.0); BLOOD UREA NITROGEN 58 mg/dL (7-18); CALCIUM 7.7 MG/DL (8.5-10.1); CREATININE 1.7 MG/DL (0.55-1.30)
--- NOTE | 2017-10-20 11:15 | Infectious Diseases Prog Note ---
Assessment/Plan Assessment/Plan ASSESSMENT: The patient is a 42-year-old male with, Leukocytosis ( on steroids ) increased Fever ( after self extubation ) Possible aspiration pneumonia versus community-acquired pneumonia. Scx : P mirabilis , 10/13 C-Xray worsening of infiltrate vs edema Probable scrotal cellulitis versus discoloration of genitalia due to edema. CRP 20 09/15 HIV , Crypt : neg U leg Ab : neg ARDS CORA improving PICC 10/09 VDRF self extub and reintubated 10/19 Congestive heart failure. PLAN: Cont pt on Merrem d# 8/ 10 , Diflucan d# 4 ( Empiric for possible coccidio ) , add Vanco d# 1 10/17 sp vancomycin and Doxy d# 10 / 10 10/13 sp Zosyn d# 5 Monitor CBC. Monitor BMP. Monitor cultures ( BAL , Ur, blood ) Continue vent support. Monitor chest x-ray Fungal serology ordered by Pul She[facility]ell Subjective Allergies: Coded Allergies: No Known Allergies (Unverified , 10/06/17) Subjective Febrile on Vent Objective Vital Signs Last 24 Hour Vital Signs Date Time Temp Pulse Resp B/P (MAP) Pulse Ox O2 Delivery O2 Flow Rate FiO2 10/20/17 11:00 71 17 119/61 92 Mechanical Ventilator 90 10/20/17 11:00 19 10/20/17 11:00 18 10/20/17 10:30 72 17 116/62 92 Mechanical Ventilator 100 10/20/17 10:00 18 10/20/17 10:00 18 10/20/17 10:00 72 17 117/61 90 Mechanical Ventilator 100 10/20/17 09:51 81 32 100 10/20/17 09:45 19 10/20/17 09:44 19 10/20/17 09:30 80 20 121/59 90 Mechanical Ventilator 100 10/20/17 09:18 72 30 100 10/20/17 09:00 19 10/20/17 09:00 19 10/20/17 09:00 77 18 109/50 93 Mechanical Ventilator 100 10/20/17 08:30 79 14 109/50 93 Mechanical Ventilator 100 10/20/17 08:00 72 10/20/17 08:00 90 10/20/17 08:00 18 10/20/17 08:00 18 10/20/17 08:00 80 18 115/59 93 Mechanical Ventilator 100 10/20/17 07:48 78 30 93 Mechanical Ventilator 100 10/20/17 07:32 66 30 94 Mechanical Ventilator 100 10/20/17 07:31 68 30 100 10/20/17 07:30 100.7 73 17 114/58 94 Mechanical Ventilator 100 10/20/17 07:00 77 27 110/60 97 Mechanical Ventilator 100 10/20/17 07:00 27 10/20/17 07:00 27 10/20/17 06:30 67 27 112/59 95 Mechanical Ventilator 100 10/20/17 06:00 67 24 115/59 95 Mechanical Ventilator 100 10/20/17 06:00 27 10/20/17 06:00 27 10/20/17 05:46 22 10/20/17 05:30 100.1 74 18 115/57 95 Mechanical Ventilator 100 10/20/17 05:00 71 27 116/57 95 Mechanical Ventilator 100 10/20/17 05:00 24 10/20/17 04:55 70 30 100 10/20/17 04:30 70 24 118/61 95 Mechanical Ventilator 100 10/20/17 04:02 76 10/20/17 04:00 16 10/20/17 04:00 100 10/20/17 04:00 100.1 77 14 116/60 95 Mechanical Ventilator 100 10/20/17 03:30 94 26 116/61 95 Mechanical Ventilator 100 10/20/17 03:28 90 30 85 10/20/17 03:00 95 23 112/50 93 Mechanical Ventilator 100 10/20/17 03:00 23 10/20/17 03:00 23 10/20/17 02:30 82 28 117/53 93 Mechanical Ventilator 100 10/20/17 02:00 99.9 92 30 119/56 92 Mechanical Ventilator 100 10/20/17 01:58 21 10/20/17 01:56 21 10/20/17 01:30 85 20 114/49 92 Mechanical Ventilator 100 10/20/17 01:30 101.3 10/20/17 01:20 84 30 93 Mechanical Ventilator 100 10/20/17 01:06 76 30 93 Mechanical Ventilator 100 10/20/17 01:05 75 33 85 10/20/17 01:00 26 10/20/17 01:00 26 10/20/17 01:00 101.3 77 26 118/59 93 Mechanical Ventilator 100 10/20/17 00:30 87 31 121/59 93 Mechanical Ventilator 100 10/20/17 00:00 100 10/20/17 00:00 100.3 77 25 114/56 92 Mechanical Ventilator 100 10/20/17 00:00 25 10/19/17 23:47 77 10/19/17 23:30 82 23 108/53 93 Mechanical Ventilator 100 10/19/17 23:26 81 32 85 10/19/17 23:00 78 19 110/54 92 Mechanical Ventilator 100 10/19/17 23:00 24 10/19/17 23:00 24 10/19/17 22:33 28 10/19/17 22:30 82 24 117/58 92 Mechanical Ventilator 100 10/19/17 22:00 83 24 113/53 94 Mechanical Ventilator 100 10/19/17 22:00 24 10/19/17 22:00 24 10/19/17 21:30 83 26 105/49 94 Mechanical Ventilator 100 10/19/17 21:23 82 34 85 10/19/17 21:15 82 30 109/54 94 Mechanical Ventilator 100 10/19/17 21:00 30 10/19/17 21:00 30 10/19/17 21:00 86 30 119/55 94 Mechanical Ventilator 100 10/19/17 20:45 89 30 110/54 94 Mechanical Ventilator 100 10/19/17 20:30 99.8 93 28 114/52 92 Mechanical Ventilator 100 10/19/17 20:15 93 15 113/54 92 Mechanical Ventilator 100 10/19/17 20:15 15 10/19/17 20:15 16 10/19/17 20:00 95 16 118/60 92 Mechanical Ventilator 100 10/19/17 20:00 16 10/19/17 20:00 16 10/19/17 20:00 100 10/19/17 19:59 93 10/19/17 19:45 16 10/19/17 19:45 92 16 116/60 92 Mechanical Ventilator 100 10/19/17 19:30 89 30 116/61 91 Mechanical Ventilator 100 10/19/17 19:30 19 10/19/17 19:30 19 10/19/17 19:25 90 30 95 Mechanical Ventilator 100 10/19/17 19:09 75 30 95 Mechanical Ventilator 100 10/19/17 19:07 73 30 85 10/19/17 19:00 74 29 99/49 93 Mechanical Ventilator 85 10/19/17 18:57 98.2 10/19/17 18:57 98.2 10/19/17 18:30 73 27 99/41 93 Mechanical Ventilator 85 10/19/17 18:29 20 10/19/17 18:23 20 10/19/17 18:00 74 29 100/53 93 Mechanical Ventilator 85 10/19/17 17:33 84 30 100 10/19/17 17:32 Mechanical Ventilator 100 10/19/17 17:30 74 29 100/57 93 Mechanical Ventilator 85 10/19/17 17:00 79 18 104/59 91 Mechanical Ventilator 85 10/19/17 16:30 81 11 108/57 93 Mechanical Ventilator 85 10/19/17 16:00 85 10/19/17 16:00 98.2 79 18 120/60 80 Mechanical Ventilator 85 10/19/17 16:00 81 10/19/17 15:33 18 10/19/17 15:30 90 15 114/62 90 Mechanical Ventilator 85 10/19/17 15:30 84 30 100 10/19/17 15:00 80 27 119/62 90 Mechanical Ventilator 85 10/19/17 14:30 85 30 119/59 90 Mechanical Ventilator 85 10/19/17 14:00 85 30 119/59 90 Mechanical Ventilator 85 10/19/17 14:00 15 10/19/17 13:45 86 30 89 Mechanical Ventilator 100 10/19/17 13:31 104 30 100 10/19/17 13:30 85 30 130/63 88 Mechanical Ventilator 85 10/19/17 13:25 96 30 89 Mechanical Ventilator 85 10/19/17 13:00 89 30 120/69 89 Mechanical Ventilator 85 10/19/17 12:30 70 30 123/70 89 Mechanical Ventilator 85 10/19/17 12:00 98.8 77 30 121/70 93 Mechanical Ventilator 85 10/19/17 12:00 85 10/19/17 12:00 73 10/19/17 11:50 71 30 100 10/19/17 11:30 69 30 121/70 90 Mechanical Ventilator 85 Height (Feet): 5 Height (Inches): 4.00 Weight (Pounds): 356 HEENT: anicteric Respiratory/Chest: normal breath sounds Cardiovascular: normal rate Abdomen: soft, non tender Microbiology Date/Time Source Procedure Growth Status 10/18/17 20:30 Bronchial Washings Not Specified Gram Stain - Final Resulted 10/18/17 20:30 Bronchial Washings Not Specified Bronchial Aspirate Culture - Preliminary NO GROWTH AFTER 24 HOURS Resulted Laboratory Tests Test 10/20/17 08:49 10/20/17 10:14 Arterial Blood pH 7.394 (7.350-7.450) Arterial Blood Partial Pressure CO2 71.5 mmHg (35.0-45.0) *H Arterial Blood Partial Pressure O2 69.6 mmHg (75.0-100.0) L Arterial Blood HCO3 42.7 mmol/L (22.0-26.0) H Arterial Blood Oxygen Saturation 92.2 % (92.0-98.0) Arterial Blood Base Excess 14.4 Naif Test Positive White Blood Count 14.0 K/UL (4.8-10.8) H Red Blood Count 6.91 M/UL (4.70-6.10) H Hemoglobin 12.6 G/DL (14.2-18.0) L Hematocrit 46.1 % (42.0-52.0) Mean Corpuscular Volume 67 FL (80-99) L Mean Corpuscular Hemoglobin 18.3 PG (27.0-31.0) L Mean Corpuscular Hemoglobin Concent 27.4 G/DL (32.0-36.0) L Red Cell Distribution Width 21.0 % (11.6-14.8) H Platelet Count 259 K/UL (150-450) Mean Platelet Volume 10.3 FL (6.5-10.1) H Neutrophils (%) (Auto) % (45.0-75.0) Lymphocytes (%) (Auto) % (20.0-45.0) Monocytes (%) (Auto) % (1.0-10.0) Eosinophils (%) (Auto) % (0.0-3.0) Basophils (%) (Auto) % (0.0-2.0) Differential Total Cells Counted 100 Neutrophils % (Manual) 90 % (45-75) H Lymphocytes % (Manual) 6 % (20-45) L Monocytes % (Manual) 4 % (1-10) Eosinophils % (Manual) 0 % (0-3) Basophils % (Manual) 0 % (0-2) Band Neutrophils 0 % (0-8) Platelet Estimate Adequate Platelet Morphology Normal Hypochromasia 2+ Anisocytosis 3+ Microcytosis 3+ Sodium Level Pending Potassium Level Pending Chloride Level Pending Carbon Dioxide Level Pending Blood Urea Nitrogen Pending Creatinine Pending Estimat Glomerular Filtration Rate Pending Glucose Level Pending Calcium Level Pending Total Bilirubin Pending Aspartate Amino Transf (AST/SGOT) Pending Alanine Aminotransferase (ALT/SGPT) Pending Alkaline Phosphatase Pending Total Protein Pending Albumin Pending Globulin Pending Current Medications Medications (Trade) Dose Ordered Sig/Prince Route PRN Reason Start Time Stop Time Status Last Admin Dose Admin Acetaminophen (Tylenol) 650 mg EVERY 4 HOURS PRN NG Mild Pain/Temp > 100.5 10/09/17 10:15 11/08/17 10:14 10/20/17 01:00 Acetylcysteine (Mucomyst) 200 mg Q6HRT [facility] 10/15/17 13:00 11/14/17 12:59 10/20/17 07:00 Albuterol/ Ipratropium (Albuterol/ Ipratropium) 3 ml Q6HRT [facility] 10/15/17 13:00 10/20/17 12:59 10/20/17 07:29 Chlorhexidine Gluconate (Sol-Hex 2%) 1 applic DAILY@2000 TOPIC 10/09/17 20:00 11/08/17 19:59 10/19/17 19:38 Dextrose (Dextrose 50%) STAT PRN IV Hypoglycemia 10/12/17 11:00 11/11/17 10:59 Docusate Sodium (Colace) 100 mg BID GT 10/13/17 17:00 11/12/17 16:59 10/20/17 08:10 Fentanyl Citrate 1000 mcg/Sodium Chloride 100 ml @ 0 mls/hr Q24H IV 10/14/17 19:00 10/21/17 18:59 10/20/17 09:45 Fluconazole/ Sodium Chloride 200 ml @ 100 mls/hr Q24H IV 10/17/17 12:00 10/24/17 11:59 10/19/17 12:03 Furosemide (Lasix) 40 mg EVERY 12 HOURS IV 10/19/17 21:00 11/18/17 20:59 10/20/17 08:10 Haloperidol Lactate 5 mg/ Dextrose 56 ml @ 224 mls/hr Q1H PRN IVPB BREAKTHROUGH AGITATION 10/08/17 17:00 11/07/17 16:59 10/17/17 02:23 Heparin Sodium (Porcine) (Heparin 5000 units/ml) 5,000 units DAILY SUBQ 10/08/17 11:00 11/07/17 10:59 10/20/17 08:12 Insulin Aspart (NovoLOG) BEFORE MEALS AND HS SUBQ 10/12/17 11:30 11/11/17 11:29 10/20/17 06:17 Lorazepam (Ativan 2mg/ml 1ml) 2 mg Q4H PRN IV For Anxiety 10/14/17 14:00 10/21/17 13:59 10/20/17 02:31 Magnesium Hydroxide (Mom) 30 ml DAILYPRN PRN GT Constipation 10/13/17 16:30 11/12/17 16:29 10/19/17 21:01 Meropenem 1 gm/ Sodium Chloride 55 ml @ 110 mls/hr Q8HR@0200,1200,2000 IVPB 10/20/17 12:00 10/25/17 11:59 Methylprednisolone Sodium Succinate (Solu-MEDROL) 40 mg Q12HR IVP 10/19/17 21:00 11/18/17 20:59 10/20/17 08:10 Midazolam HCl 100 ml @ 0 mls/hr Q24H PRN IVPB To Patient Comfort 10/15/17 08:00 10/22/17 07:59 10/20/17 09:44 Pantoprazole (Protonix) 40 mg DAILY IV 10/07/17 11:00 11/06/17 10:59 10/20/17 08:10 CATALINA PARRA M.D. Oct 20, 2017 11:15
[2017-10-20 11:25] LABS: CARBON DIOXIDE 41 MMOL/L (21-32)
[2017-10-20 11:26] LABS: ANION GAP 2 mmol/L (5-15); CHLORIDE 104 MMOL/L (98-107); POTASSIUM 4.9 MMOL/L (3.5-5.1); SODIUM 147 MMOL/L (136-145)
[2017-10-20] MEDS: Meropenem 1 GM in NS 55 ML IVPB SCH ×2 (11:42→19:41)
--- NOTE | 2017-10-20 12:46 | Nephrology Progress Note ---
Assessment/Plan Problem List: (1) Acute respiratory failure (2) Acute renal failure Assessment: with previous urinary out let obstruction Assessment had an episode of spontaneous extubation and reintubation Acute renal failure- Cr 1.7 today Acute Respiratory distress , ? aspiration pneumonia, intubated ARDS Acute Pulmonary edema Anasarca scotal cellutis Morbid obesity. Thrombocytopenia. Abnormal blood sugar. Anemia. Plan Plan: K and Mag supplement as needed Keep BP in check pulm support avoid nephrotoxics monitor renal parameters per consultants / pulmonary per orders Left ventricular ejection fraction estimated to be grossly normal. Mild left ventricular hypertrophy. Subjective ROS Limited/Unobtainable: Yes Objective Objective Last 24 Hour Vital Signs Date Time Temp Pulse Resp B/P (MAP) Pulse Ox O2 Delivery O2 Flow Rate FiO2 10/20/17 12:00 71 13 113/58 95 Mechanical Ventilator 90 10/20/17 12:00 90 10/20/17 11:30 69 13 117/56 93 Mechanical Ventilator 90 10/20/17 11:15 72 30 100 10/20/17 11:00 71 17 119/61 92 Mechanical Ventilator 90 10/20/17 11:00 19 10/20/17 11:00 18 10/20/17 10:30 72 17 116/62 92 Mechanical Ventilator 100 10/20/17 10:14 100.7 10/20/17 10:14 100.7 10/20/17 10:00 18 10/20/17 10:00 18 10/20/17 10:00 72 17 117/61 90 Mechanical Ventilator 100 10/20/17 09:51 81 32 100 10/20/17 09:45 19 10/20/17 09:44 19 10/20/17 09:30 80 20 121/59 90 Mechanical Ventilator 100 10/20/17 09:18 72 30 100 10/20/17 09:00 19 10/20/17 09:00 19 10/20/17 09:00 77 18 109/50 93 Mechanical Ventilator 100 10/20/17 08:30 79 14 109/50 93 Mechanical Ventilator 100 10/20/17 08:00 72 10/20/17 08:00 90 10/20/17 08:00 18 10/20/17 08:00 18 10/20/17 08:00 80 18 115/59 93 Mechanical Ventilator 100 10/20/17 07:48 78 30 93 Mechanical Ventilator 100 10/20/17 07:32 66 30 94 Mechanical Ventilator 100 10/20/17 07:31 68 30 100 10/20/17 07:30 100.7 73 17 114/58 94 Mechanical Ventilator 100 10/20/17 07:00 77 27 110/60 97 Mechanical Ventilator 100 10/20/17 07:00 27 10/20/17 07:00 27 10/20/17 06:30 67 27 112/59 95 Mechanical Ventilator 100 10/20/17 06:00 67 24 115/59 95 Mechanical Ventilator 100 10/20/17 06:00 27 10/20/17 06:00 27 10/20/17 05:46 22 10/20/17 05:30 100.1 74 18 115/57 95 Mechanical Ventilator 100 10/20/17 05:00 71 27 116/57 95 Mechanical Ventilator 100 10/20/17 05:00 24 10/20/17 04:55 70 30 100 10/20/17 04:30 70 24 118/61 95 Mechanical Ventilator 100 10/20/17 04:02 76 10/20/17 04:00 16 10/20/17 04:00 100 10/20/17 04:00 100.1 77 14 116/60 95 Mechanical Ventilator 100 10/20/17 03:30 94 26 116/61 95 Mechanical Ventilator 100 10/20/17 03:28 90 30 85 10/20/17 03:00 95 23 112/50 93 Mechanical Ventilator 100 10/20/17 03:00 23 10/20/17 03:00 23 10/20/17 02:30 82 28 117/53 93 Mechanical Ventilator 100 10/20/17 02:00 99.9 92 30 119/56 92 Mechanical Ventilator 100 10/20/17 01:58 10/20/17 01:56 21 10/20/17 01:30 85 20 114/49 92 Mechanical Ventilator 100 10/20/17 01:30 101.3 10/20/17 01:20 84 30 93 Mechanical Ventilator 100 10/20/17 01:06 76 30 93 Mechanical Ventilator 100 10/20/17 01:05 75 33 85 10/20/17 01:00 26 10/20/17 01:00 10/20/17 01:00 101.3 77 26 118/59 93 Mechanical Ventilator 100 10/20/17 00:30 87 31 121/59 93 Mechanical Ventilator 100 10/20/17 00:00 100 10/20/17 00:00 100.3 77 25 114/56 92 Mechanical Ventilator 100 10/20/17 00:00 25 10/19/17 23:47 77 10/19/17 23:30 82 23 108/53 93 Mechanical Ventilator 100 10/19/17 23:26 81 32 85 10/19/17 23:00 78 19 110/54 92 Mechanical Ventilator 100 10/19/17 23:00 24 10/19/17 23:00 24 10/19/17 22:33 28 10/19/17 22:30 82 24 117/58 92 Mechanical Ventilator 100 10/19/17 22:00 83 24 113/53 94 Mechanical Ventilator 100 10/19/17 22:00 24 10/19/17 22:00 24 10/19/17 21:30 83 26 105/49 94 Mechanical Ventilator 100 10/19/17 21:23 82 34 85 10/19/17 21:15 82 30 109/54 94 Mechanical Ventilator 100 10/19/17 21:00 30 10/19/17 21:00 30 10/19/17 21:00 86 30 119/55 94 Mechanical Ventilator 100 10/19/17 20:45 89 30 110/54 94 Mechanical Ventilator 100 10/19/17 20:30 99.8 93 28 114/52 92 Mechanical Ventilator 100 10/19/17 20:15 93 15 113/54 92 Mechanical Ventilator 100 10/19/17 20:15 15 10/19/17 20:15 16 10/19/17 20:00 95 16 118/60 92 Mechanical Ventilator 100 10/19/17 20:00 16 10/19/17 20:00 16 10/19/17 20:00 100 10/19/17 19:59 93 10/19/17 19:45 16 10/19/17 19:45 92 16 116/60 92 Mechanical Ventilator 100 10/19/17 19:30 89 30 116/61 91 Mechanical Ventilator 100 10/19/17 19:30 19 10/19/17 19:30 19 10/19/17 19:25 90 30 95 Mechanical Ventilator 100 10/19/17 19:09 75 30 95 Mechanical Ventilator 100 10/19/17 19:07 73 30 85 10/19/17 19:00 74 29 99/49 93 Mechanical Ventilator 85 10/19/17 18:30 73 27 99/41 93 Mechanical Ventilator 85 10/19/17 18:29 20 10/19/17 18:23 20 10/19/17 18:00 74 29 100/53 93 Mechanical Ventilator 85 10/19/17 17:33 84 30 100 10/19/17 17:32 Mechanical Ventilator 100 10/19/17 17:30 74 29 100/57 93 Mechanical Ventilator 85 10/19/17 17:00 79 18 104/59 91 Mechanical Ventilator 85 10/19/17 16:30 81 11 108/57 93 Mechanical Ventilator 85 10/19/17 16:00 85 10/19/17 16:00 98.2 79 18 120/60 80 Mechanical Ventilator 85 10/19/17 16:00 81 10/19/17 15:33 18 10/19/17 15:30 90 15 114/62 90 Mechanical Ventilator 85 10/19/17 15:30 84 30 100 10/19/17 15:00 80 27 119/62 90 Mechanical Ventilator 85 10/19/17 14:30 85 30 119/59 90 Mechanical Ventilator 85 10/19/17 14:00 85 30 119/59 90 Mechanical Ventilator 85 10/19/17 14:00 15 10/19/17 13:45 86 30 89 Mechanical Ventilator 100 10/19/17 13:31 104 30 100 10/19/17 13:30 85 30 130/63 88 Mechanical Ventilator 85 10/19/17 13:25 96 30 89 Mechanical Ventilator 85 10/19/17 13:00 89 30 120/69 89 Mechanical Ventilator 85 Intake and Output 10/19/17 10/20/17 19:00 07:00 Intake Total 1457 ml 1135.5 ml Output Total 2560 ml 2980 ml Balance -1103 ml -1844.5 ml IV Total 977 ml 505.5 ml Tube Feeding 480 ml 480 ml Other 150 ml Output Urine Total 2560 ml 2980 ml Laboratory Tests 10/20/17 08:49: Arterial Blood pH 7.394, Arterial Blood Partial Pressure CO2 71.5*H, Arterial Blood Partial Pressure O2 69.6L, Arterial Blood HCO3 42.7H, Arterial Blood Oxygen Saturation 92.2, Arterial Blood Base Excess 14.4, Niaf Test Positive 10/20/17 10:14: White Blood Count 14.0H, Red Blood Count 6.91H, Hemoglobin 12.6L, Hematocrit 46.1, Mean Corpuscular Volume 67L, Mean Corpuscular Hemoglobin 18.3L, Mean Corpuscular Hemoglobin Concent 27.4L, Red Cell Distribution Width 21.0H, Platelet Count 259, Mean Platelet Volume 10.3H, Neutrophils (%) (Auto) , Lymphocytes (%) (Auto) , Monocytes (%) (Auto) , Eosinophils (%) (Auto) , Basophils (%) (Auto) , Differential Total Cells Counted 100, Neutrophils % ( Manual) 90H, Lymphocytes % (Manual) 6L, Monocytes % (Manual) 4, Eosinophils % ( Manual) 0, Basophils % (Manual) 0, Band Neutrophils 0, Platelet Estimate Adequate, Platelet Morphology Normal, Hypochromasia 2+, Anisocytosis 3+, Microcytosis 3+, Sodium Level 147H, Potassium Level 4.9, Chloride Level 104, Carbon Dioxide Level 41*H, Anion Gap 2L, Blood Urea Nitrogen 58H, Creatinine 1.7H, Estimat Glomerular Filtration Rate 44.9, Glucose Level 153H, Calcium Level 7.7L, Total Bilirubin 0.9, Aspartate Amino Transf (AST/SGOT) 32, Alanine Aminotransferase (ALT/SGPT) 42, Alkaline Phosphatase 100, Total Protein 6.7, Albumin 2.1L, Globulin 4.6, Albumin/Globulin Ratio 0.5L Height (Feet): 5 Height (Inches): 4.00 Weight (Pounds): 356 General Appearance: no apparent distress Objective no other change JAY YANCEY Oct 20, 2017 12:46
[2017-10-20] MEDS ORDERED: Vancomycin 1.5 GM/D5W 250ML IVPB SCH (13:00)
[2017-10-20] MEDS: Vancomycin 1250mg/D5W 250ml IVPB SCH (13:06)
[2017-10-20] MEDS ORDERED: Meropenem 1 GM in NS 55 ML IVPB SCH (14:00)
[2017-10-20] MEDS: fentaNYL Citrate 2500mcg in NS 250ml IV SCH (16:40)
[2017-10-20] MEDS ORDERED: NS Irrig 1000ml ONE (17:32)
[2017-10-20] MEDS ORDERED: Tubing IV Secondary IV ONE ×2 (17:32→17:34)
[2017-10-20] MEDS ORDERED: NS 275ml ONE (17:41)
[2017-10-20] MEDS: Dyna-Hex 2% Top Sol 2oz TOPIC SCH (19:41)
--- NOTE | 2017-10-20 20:01 | General Progress Note ---
Assessment/Plan Assessment/Plan Assessment/Plan 1. VDRF 2. ARDS-Hypoxemic respiratory failure. 3.Sepsis: Aspiration Gram negative HCA-PNA 4. Gram negative HCA-PNA 5. Cellulitis of the scrotal area. 6. Morbid obesity. 7. ARF 8. Obstructive uropathy 9. Thrombocytopenia. 10. DM-2 11. Anemia. 12. Gastrointestinal and deep vein thrombosis prophylaxes. 13. Psoriasis PLAN OF CARE: NOtes from Infectious Diseases Dr. Pineda, Nephrology, Dr Urrutia, pulmonary Dr Steinberg reviewed Poor Prognosis Transfer to higher level of care?! Palliative extubation? Defer to pulmonary s/P SELF EXTUBATION AND SUCCESSFUL RE-INTUBATION Subjective HEENT: Denies: no symptoms, eye pain, blurred vision, tearing, double vision, ear pain, ear discharge, nose pain, nose congestion, throat pain, throat swelling, mouth pain, mouth swelling, other Cardiovascular: Denies: no symptoms, chest pain, edema, irregular heart rate, lightheadedness, palpitations, syncope, other Respiratory: Denies: no symptoms, cough, orthopnea, shortness of breath, SOB with excertion, SOB at rest, sputum, stridor, wheezing, other Gastrointestinal/Abdominal: Denies: no symptoms, abdomen distended, abdominal pain, black stools, tarry stools, blood in stool, constipated, diarrhea, difficulty swallowing, nausea, poor appetite, poor fluid intake, rectal bleeding , vomiting, other Genitourinary: Denies: no symptoms, burning, discharge, frequency, flank pain, hematuria, incontinence, pain, urgency, other Neurologic/Psychiatric: Denies: no symptoms, anxiety, depressed, emotional problems, headache, numbness, paresthesia, pre-existing deficit, seizure, tingling, tremors, weakness, other Endocrine: Denies: no symptoms, excessive sweating, flushing, intolerance to cold, intolerance to heat, increased hunger, increased thirst, increased urine, unexplained weight gain, unexplained weight loss, other Allergies: Coded Allergies: No Known Allergies (Unverified , 10/06/17) Subjective no fevers or chills reported Objective Last 24 Hour Vital Signs Date Time Temp Pulse Resp B/P (MAP) Pulse Ox O2 Delivery O2 Flow Rate FiO2 10/20/17 19:58 90 10/20/17 19:30 78 30 113/58 91 Mechanical Ventilator 100 10/20/17 19:27 76 30 96 Mechanical Ventilator 100 10/20/17 19:22 73 32 93 Mechanical Ventilator 90 10/20/17 19:00 79 25 117/53 95 Mechanical Ventilator 100 10/20/17 19:00 25 10/20/17 19:00 25 10/20/17 18:57 70 33 90 10/20/17 18:30 76 28 116/56 93 Mechanical Ventilator 100 10/20/17 18:19 100.0 10/20/17 18:00 23 10/20/17 18:00 23 10/20/17 18:00 72 23 112/59 93 Mechanical Ventilator 100 10/20/17 17:49 23 10/20/17 17:30 73 22 111/52 93 Mechanical Ventilator 100 10/20/17 17:10 97.7 10/20/17 17:02 73 31 90 10/20/17 17:00 20 10/20/17 17:00 20 10/20/17 17:00 79 27 119/60 92 Mechanical Ventilator 100 10/20/17 16:40 19 10/20/17 16:37 20 10/20/17 16:30 79 27 112/62 91 Mechanical Ventilator 100 10/20/17 16:00 78 10/20/17 16:00 97.7 90 26 116/61 90 Mechanical Ventilator 100 10/20/17 16:00 90 10/20/17 16:00 26 10/20/17 15:30 79 26 115/61 92 Mechanical Ventilator 100 10/20/17 15:20 17 10/20/17 15:13 90 30 90 10/20/17 15:00 86 28 110/55 92 Mechanical Ventilator 100 10/20/17 15:00 17 10/20/17 15:00 17 10/20/17 14:30 79 24 110/50 92 Mechanical Ventilator 100 10/20/17 14:03 30 10/20/17 14:00 71 22 114/60 93 Mechanical Ventilator 100 10/20/17 14:00 15 10/20/17 14:00 15 10/20/17 13:47 79 30 95 Mechanical Ventilator 100 10/20/17 13:38 78 30 94 Mechanical Ventilator 90 10/20/17 13:37 72 30 90 10/20/17 13:30 69 15 118/64 94 Mechanical Ventilator 100 10/20/17 13:00 69 15 118/58 93 Mechanical Ventilator 100 10/20/17 13:00 13 10/20/17 13:00 13 10/20/17 12:56 100.6 10/20/17 12:30 76 26 116/55 93 Mechanical Ventilator 90 10/20/17 12:00 75 10/20/17 12:00 71 13 113/58 95 Mechanical Ventilator 90 10/20/17 12:00 13 10/20/17 12:00 13 10/20/17 12:00 90 10/20/17 11:30 69 13 117/56 93 Mechanical Ventilator 90 10/20/17 11:15 72 30 100 10/20/17 11:00 71 17 119/61 92 Mechanical Ventilator 90 10/20/17 11:00 19 10/20/17 11:00 18 10/20/17 10:30 72 17 116/62 92 Mechanical Ventilator 100 10/20/17 10:14 100.7 10/20/17 10:00 18 10/20/17 10:00 18 10/20/17 10:00 72 17 117/61 90 Mechanical Ventilator 100 10/20/17 09:51 81 32 100 10/20/17 09:45 19 10/20/17 09:44 19 10/20/17 09:30 80 20 121/59 90 Mechanical Ventilator 100 10/20/17 09:18 72 30 100 10/20/17 09:00 19 10/20/17 09:00 19 10/20/17 09:00 77 18 109/50 93 Mechanical Ventilator 100 10/20/17 08:30 79 14 109/50 93 Mechanical Ventilator 100 10/20/17 08:00 72 10/20/17 08:00 90 10/20/17 08:00 18 10/20/17 08:00 18 10/20/17 08:00 80 18 115/59 93 Mechanical Ventilator 100 10/20/17 07:48 78 30 93 Mechanical Ventilator 100 10/20/17 07:32 66 30 94 Mechanical Ventilator 100 10/20/17 07:31 68 30 100 10/20/17 07:30 100.7 73 17 114/58 94 Mechanical Ventilator 100 10/20/17 07:00 77 27 110/60 97 Mechanical Ventilator 100 10/20/17 07:00 27 10/20/17 07:00 27 10/20/17 06:30 67 27 112/59 95 Mechanical Ventilator 100 10/20/17 06:00 67 24 115/59 95 Mechanical Ventilator 100 10/20/17 06:00 27 10/20/17 06:00 27 10/20/17 05:46 22 10/20/17 05:30 100.1 74 18 115/57 95 Mechanical Ventilator 100 10/20/17 05:00 71 27 116/57 95 Mechanical Ventilator 100 10/20/17 05:00 24 10/20/17 04:55 70 30 100 10/20/17 04:30 70 24 118/61 95 Mechanical Ventilator 100 10/20/17 04:02 76 10/20/17 04:00 16 10/20/17 04:00 100 10/20/17 04:00 100.1 77 14 116/60 95 Mechanical Ventilator 100 10/20/17 03:30 94 26 116/61 95 Mechanical Ventilator 100 10/20/17 03:28 90 30 85 10/20/17 03:00 95 23 112/50 93 Mechanical Ventilator 100 10/20/17 03:00 23 10/20/17 03:00 23 10/20/17 02:30 82 28 117/53 93 Mechanical Ventilator 100 10/20/17 02:00 99.9 92 30 119/56 92 Mechanical Ventilator 100 10/20/17 01:58 21 10/20/17 01:56 21 10/20/17 01:30 85 20 114/49 92 Mechanical Ventilator 100 10/20/17 01:20 84 30 93 Mechanical Ventilator 100 10/20/17 01:06 76 30 93 Mechanical Ventilator 100 10/20/17 01:05 75 33 85 10/20/17 01:00 26 10/20/17 01:00 26 10/20/17 01:00 101.3 77 26 118/59 93 Mechanical Ventilator 100 10/20/17 00:30 87 31 121/59 93 Mechanical Ventilator 100 10/20/17 00:00 100 10/20/17 00:00 100.3 77 25 114/56 92 Mechanical Ventilator 100 10/20/17 00:00 25 10/19/17 23:47 77 10/19/17 23:30 82 23 108/53 93 Mechanical Ventilator 100 10/19/17 23:26 81 32 85 10/19/17 23:00 78 19 110/54 92 Mechanical Ventilator 100 10/19/17 23:00 24 10/19/17 23:00 24 10/19/17 22:33 28 10/19/17 22:30 82 24 117/58 92 Mechanical Ventilator 100 10/19/17 22:00 83 24 113/53 94 Mechanical Ventilator 100 10/19/17 22:00 24 10/19/17 22:00 24 10/19/17 21:30 83 26 105/49 94 Mechanical Ventilator 100 10/19/17 21:23 82 34 85 10/19/17 21:15 82 30 109/54 94 Mechanical Ventilator 100 10/19/17 21:00 30 10/19/17 21:00 30 10/19/17 21:00 86 30 119/55 94 Mechanical Ventilator 100 10/19/17 20:45 89 30 110/54 94 Mechanical Ventilator 100 10/19/17 20:30 99.8 93 28 114/52 92 Mechanical Ventilator 100 10/19/17 20:15 93 15 113/54 92 Mechanical Ventilator 100 10/19/17 20:15 15 10/19/17 20:15 16 Intake and Output 10/19/17 10/20/17 19:00 07:00 Intake Total 1457 ml 1135.5 ml Output Total 2560 ml 2980 ml Balance -1103 ml -1844.5 ml IV Total 977 ml 505.5 ml Tube Feeding 480 ml 480 ml Other 150 ml Output Urine Total 2560 ml 2980 ml Laboratory Tests 10/20/17 08:49: Arterial Blood pH 7.394, Arterial Blood Partial Pressure CO2 71.5*H, Arterial Blood Partial Pressure O2 69.6L, Arterial Blood HCO3 42.7H, Arterial Blood Oxygen Saturation 92.2, Arterial Blood Base Excess 14.4, Naif Test Positive 10/20/17 10:14: White Blood Count 14.0H, Red Blood Count 6.91H, Hemoglobin 12.6L, Hematocrit 46.1, Mean Corpuscular Volume 67L, Mean Corpuscular Hemoglobin 18.3L, Mean Corpuscular Hemoglobin Concent 27.4L, Red Cell Distribution Width 21.0H, Platelet Count 259, Mean Platelet Volume 10.3H, Neutrophils (%) (Auto) , Lymphocytes (%) (Auto) , Monocytes (%) (Auto) , Eosinophils (%) (Auto) , Basophils (%) (Auto) , Differential Total Cells Counted 100, Neutrophils % ( Manual) 90H, Lymphocytes % (Manual) 6L, Monocytes % (Manual) 4, Eosinophils % ( Manual) 0, Basophils % (Manual) 0, Band Neutrophils 0, Platelet Estimate Adequate, Platelet Morphology Normal, Hypochromasia 2+, Anisocytosis 3+, Microcytosis 3+, Sodium Level 147H, Potassium Level 4.9, Chloride Level 104, Carbon Dioxide Level 41*H, Anion Gap 2L, Blood Urea Nitrogen 58H, Creatinine 1.7H, Estimat Glomerular Filtration Rate 44.9, Glucose Level 153H, Calcium Level 7.7L, Total Bilirubin 0.9, Aspartate Amino Transf (AST/SGOT) 32, Alanine Aminotransferase (ALT/SGPT) 42, Alkaline Phosphatase 100, Total Protein 6.7, Albumin 2.1L, Globulin 4.6, Albumin/Globulin Ratio 0.5L Height (Feet): 5 Height (Inches): 4.00 Weight (Pounds): 356 General Appearance: alert EENT: normal ENT inspection Neck: normal inspection Cardiovascular: normal rate Respiratory/Chest: chest wall non-tender Abdomen: non tender Extremities: normal range of motion Semaj Juárez Oct 20, 2017 20:01
[2017-10-21] VITALS (47 sets, daily range): BP systolic 107–123; BP diastolic 52–76
[2017-10-21] MEDS: Vancomycin 1250mg/D5W 250ml IVPB SCH ×2 (00:38→13:19)
[2017-10-21] MEDS: Acetylcysteine 20% Soln 4ml HHN SCH ×4 (01:06→19:02)
[2017-10-21] MEDS: Meropenem 1 GM in NS 55 ML IVPB SCH ×3 (02:03→19:50)
[2017-10-21] MEDS: Midazolam/D5W 100ml 100 ML IVPB PRN ×5 (03:22→21:34)
[2017-10-21 05:05] LABS: HEMATOCRIT 43.1 % (42.0-52.0); HEMOGLOBIN 12.3 G/DL (14.2-18.0); MEAN CORPUSCULAR VOLUME 66 FL (80-99); PLATELET COUNT 230 K/UL (150-450); RED BLOOD COUNT 6.55 M/UL (4.70-6.10); WHITE BLOOD COUNT 15.6 K/UL (4.8-10.8)
[2017-10-21 05:14] LABS: ALANINE AMINOTRANSFERASE 32 U/L (12-78); ALBUMIN/GLOBULIN RATIO 0.4 (1.0-2.7); ALKALINE PHOSPHATASE 93 U/L (46-116); ANION GAP 0 mmol/L (5-15); ASPARTATE AMINO TRANSFERASE 22 U/L (15-37); BILIRUBIN,TOTAL 0.8 MG/DL (0.2-1.0); BLOOD UREA NITROGEN 56 mg/dL (7-18); CALCIUM 7.5 MG/DL (8.5-10.1); CARBON DIOXIDE 39 MMOL/L (21-32); CHLORIDE 105 MMOL/L (98-107); CREATININE 1.5 MG/DL (0.55-1.30); POTASSIUM 4.9 MMOL/L (3.5-5.1); SODIUM 144 MMOL/L (136-145)
[2017-10-21] MEDS: NovoLOG Insulin Flexpen SUBQ SCH ×4 (06:33→20:43)
--- NOTE | 2017-10-21 08:49 | Pulmonolgy Critical Care Note ---
Critical Care - Asmt/Plan Problems: (1) ARDS (adult respiratory distress syndrome) (2) Acute respiratory failure (3) Cellulitis of scrotum (4) Respiratory distress (5) Pulmonary edema (6) Anasarca (7) scotal cellutis (8) Acute renal failure Assessment/Plan: -PanCx -Abx per ID -Will need PEG and TRACH -Continue ventilatory support -Continue current settings -Titrate down FiO2 to keep SaO2 > 90%, keep PEEP as is for now -D/W RT, there in not John @ [facility], consider paralysis, proning would not be technically feasible -Optimize pulmonary hygiene/mobilize as tolerated -Continue RTC and PRN DUOnebs + NAC HHN's -Decrease SM to 30 IV BID, taper slowly -F/U BAL studies -Monitor volumes and renal function --> no IVF, PRN spot dose Lasix -Unable to do CT chest / weight -Unable to tx to [facility]/ insurance, awaiting authorization for [facility] -NGTF's as tolerated -DVT Px: Hep SQ -FC, continue to discuss GOC with family CC 45 Critical Care - Objective Last 24 Hour Vital Signs Date Time Temp Pulse Resp B/P (MAP) Pulse Ox O2 Delivery O2 Flow Rate FiO2 10/21/17 08:32 61 30 95 Mechanical Ventilator 10/21/17 08:30 61 30 90 10/21/17 08:24 62 30 95 Mechanical Ventilator 10/21/17 07:32 100.0 10/21/17 07:23 66 28 90 10/21/17 07:02 22 10/21/17 07:00 65 30 110/56 94 Mechanical Ventilator 10/21/17 07:00 26 10/21/17 06:30 71 24 116/57 94 Mechanical Ventilator 90 10/21/17 06:00 63 22 113/60 95 Mechanical Ventilator 10/21/17 05:30 65 27 115/59 95 Mechanical Ventilator 10/21/17 05:00 70 20 114/57 94 Mechanical Ventilator 90 10/21/17 05:00 22 10/21/17 04:36 73 33 90 10/21/17 04:30 72 26 114/57 95 Mechanical Ventilator 90 10/21/17 04:00 28 10/21/17 04:00 90 10/21/17 04:00 99.9 68 28 111/52 95 Mechanical Ventilator 90 10/21/17 03:44 69 10/21/17 03:30 72 28 112/59 95 Mechanical Ventilator 90 10/21/17 03:22 20 10/21/17 03:00 78 31 90 10/21/17 03:00 73 28 111/56 95 Mechanical Ventilator 90 10/21/17 03:00 28 10/21/17 03:00 28 10/21/17 02:30 78 28 113/62 94 Mechanical Ventilator 90 10/21/17 02:00 71 28 118/62 94 Mechanical Ventilator 90 10/21/17 01:30 72 23 117/60 93 Mechanical Ventilator 90 10/21/17 01:07 70 30 95 Mechanical Ventilator 90 10/21/17 01:00 72 30 88 Mechanical Ventilator 90 10/21/17 01:00 101.1 74 30 121/61 94 Mechanical Ventilator 90 10/21/17 01:00 70 30 90 10/21/17 00:30 71 32 120/61 94 Mechanical Ventilator 90 10/21/17 00:28 101.2 10/21/17 00:19 71 10/21/17 00:00 101.2 73 31 119/61 94 Mechanical Ventilator 90 10/21/17 00:00 90 10/20/17 23:56 30 10/20/17 23:30 88 26 119/65 93 Mechanical Ventilator 90 10/20/17 23:00 78 29 118/54 93 Mechanical Ventilator 90 10/20/17 23:00 29 10/20/17 23:00 29 10/20/17 22:40 79 31 90 10/20/17 22:30 77 22 115/56 93 Mechanical Ventilator 90 10/20/17 22:00 22 10/20/17 22:00 85 22 118/54 93 Mechanical Ventilator 90 10/20/17 21:30 91 27 110/51 91 Mechanical Ventilator 90 10/20/17 21:00 82 30 90 10/20/17 21:00 28 10/20/17 21:00 28 10/20/17 21:00 86 28 111/56 93 Mechanical Ventilator 90 10/20/17 20:30 79 25 111/56 92 Mechanical Ventilator 90 10/20/17 20:18 27 10/20/17 20:00 99.6 78 30 112/51 91 Mechanical Ventilator 90 10/20/17 20:00 24 10/20/17 20:00 24 10/20/17 19:58 90 10/20/17 19:50 78 10/20/17 19:30 78 30 113/58 91 Mechanical Ventilator 90 10/20/17 19:27 76 30 96 Mechanical Ventilator 100 10/20/17 19:22 73 32 93 Mechanical Ventilator 90 10/20/17 19:00 79 25 117/53 95 Mechanical Ventilator 100 10/20/17 19:00 25 10/20/17 19:00 25 10/20/17 18:57 70 33 90 10/20/17 18:30 76 28 116/56 93 Mechanical Ventilator 100 10/20/17 18:00 23 10/20/17 18:00 23 10/20/17 18:00 72 23 112/59 93 Mechanical Ventilator 100 10/20/17 17:49 23 10/20/17 17:30 73 22 111/52 93 Mechanical Ventilator 100 10/20/17 17:10 97.7 10/20/17 17:02 73 31 90 10/20/17 17:00 20 10/20/17 17:00 20 10/20/17 17:00 79 27 119/60 92 Mechanical Ventilator 100 10/20/17 16:40 19 10/20/17 16:37 20 10/20/17 16:30 79 27 112/62 91 Mechanical Ventilator 100 10/20/17 16:00 78 10/20/17 16:00 97.7 90 26 116/61 90 Mechanical Ventilator 100 10/20/17 16:00 90 10/20/17 16:00 26 10/20/17 15:30 79 26 115/61 92 Mechanical Ventilator 100 10/20/17 15:20 17 10/20/17 15:13 90 30 90 10/20/17 15:00 86 28 110/55 92 Mechanical Ventilator 100 10/20/17 15:00 17 10/20/17 15:00 17 10/20/17 14:30 79 24 110/50 92 Mechanical Ventilator 100 10/20/17 14:03 30 10/20/17 14:00 71 22 114/60 93 Mechanical Ventilator 100 10/20/17 14:00 15 10/20/17 14:00 15 10/20/17 13:47 79 30 95 Mechanical Ventilator 100 10/20/17 13:38 78 30 94 Mechanical Ventilator 90 10/20/17 13:37 72 30 90 10/20/17 13:30 69 15 118/64 94 Mechanical Ventilator 100 10/20/17 13:00 69 15 118/58 93 Mechanical Ventilator 100 10/20/17 13:00 13 10/20/17 13:00 13 10/20/17 12:30 76 26 116/55 93 Mechanical Ventilator 90 10/20/17 12:00 75 10/20/17 12:00 71 13 113/58 95 Mechanical Ventilator 90 10/20/17 12:00 13 10/20/17 12:00 13 10/20/17 12:00 90 10/20/17 11:30 69 13 117/56 93 Mechanical Ventilator 90 10/20/17 11:15 72 30 100 10/20/17 11:00 71 17 119/61 92 Mechanical Ventilator 90 10/20/17 11:00 19 10/20/17 11:00 18 10/20/17 10:30 72 17 116/62 92 Mechanical Ventilator 100 10/20/17 10:14 100.7 10/20/17 10:00 18 10/20/17 10:00 18 10/20/17 10:00 72 17 117/61 90 Mechanical Ventilator 100 10/20/17 09:51 81 32 100 10/20/17 09:45 19 10/20/17 09:44 19 10/20/17 09:30 80 20 121/59 90 Mechanical Ventilator 100 10/20/17 09:18 72 30 100 10/20/17 09:00 19 10/20/17 09:00 19 10/20/17 09:00 77 18 109/50 93 Mechanical Ventilator 100 Status: obtunded Condition: critical HEENT: other - ETT, R NGT Lungs: rhonchi Heart: HR/BP stable Abdomen: soft Extremities: no C/C/E Decubiti: none Objective: Scrotal edema, erythema and warmth Micro: Microbiology Date/Time Source Procedure Growth Status 10/18/17 20:30 Bronchial Washings Not Specified Gram Stain - Final Resulted 10/18/17 20:30 Bronchial Washings Not Specified Bronchial Aspirate Culture - Preliminary NO GROWTH AFTER 24 HOURS Resulted Accucheck: 168 Blood Sugars: BS controlled Critical Care - Subjective ROS Limited/Unobtainable: Yes ICU Day: 14 Intubation Day: 14 (re-intubation D2) Interval Events: Tm 100.6, CXR imp edema, WCt slighly inc, no change in secretions, no change in MS, FiO2 90% Condition: critical IV Access: PICC EKG Rhythm: Sinus Rhythm FI02: 90 Vent Support Breath Rate: 30 Vent Support Mode: AC Vent Tidal Volume: 500 Sputum Amount: Scant PEEP: 10.0 PIP: 39 Tube Feeding Amount: 40 I&O: Intake and Output 10/20/17 10/21/17 19:00 07:00 Intake Total 1639.984 ml 1430.000 ml Output Total 3150 ml 1470 ml Balance -1510.016 ml -40.000 ml IV Total 1159.984 ml 900.000 ml Tube Feeding 480 ml 480 ml Other 50 ml Output Urine Total 3150 ml 1470 ml Subjective: Not obtainable CXR: B infiltrates, dec effusion ET-Tube: 7.5 ET Position: 25 Labs: Laboratory Tests Test 10/20/17 08:49 10/20/17 10:14 10/21/17 04:10 Arterial Blood pH 7.394 (7.350-7.450) Arterial Blood Partial Pressure CO2 71.5 mmHg (35.0-45.0) *H Arterial Blood Partial Pressure O2 69.6 mmHg (75.0-100.0) L Arterial Blood HCO3 42.7 mmol/L (22.0-26.0) H Arterial Blood Oxygen Saturation 92.2 % (92.0-98.0) Arterial Blood Base Excess 14.4 Naif Test Positive White Blood Count 14.0 K/UL (4.8-10.8) H 15.6 K/UL (4.8-10.8) H Red Blood Count 6.91 M/UL (4.70-6.10) H 6.55 M/UL (4.70-6.10) H Hemoglobin 12.6 G/DL (14.2-18.0) L 12.3 G/DL (14.2-18.0) L Hematocrit 46.1 % (42.0-52.0) 43.1 % (42.0-52.0) Mean Corpuscular Volume 67 FL (80-99) L 66 FL (80-99) L Mean Corpuscular Hemoglobin 18.3 PG (27.0-31.0) L 18.8 PG (27.0-31.0) L Mean Corpuscular Hemoglobin Concent 27.4 G/DL (32.0-36.0) L 28.6 G/DL (32.0-36.0) L Red Cell Distribution Width 21.0 % (11.6-14.8) H 21.0 % (11.6-14.8) H Platelet Count 259 K/UL (150-450) 230 K/UL (150-450) Mean Platelet Volume 10.3 FL (6.5-10.1) H 11.1 FL (6.5-10.1) H Neutrophils (%) (Auto) % (45.0-75.0) % (45.0-75.0) Lymphocytes (%) (Auto) % (20.0-45.0) % (20.0-45.0) Monocytes (%) (Auto) % (1.0-10.0) % (1.0-10.0) Eosinophils (%) (Auto) % (0.0-3.0) % (0.0-3.0) Basophils (%) (Auto) % (0.0-2.0) % (0.0-2.0) Differential Total Cells Counted 100 100 Neutrophils % (Manual) 90 % (45-75) H 95 % (45-75) H Lymphocytes % (Manual) 6 % (20-45) L 2 % (20-45) L Monocytes % (Manual) 4 % (1-10) 3 % (1-10) Eosinophils % (Manual) 0 % (0-3) 0 % (0-3) Basophils % (Manual) 0 % (0-2) 0 % (0-2) Band Neutrophils 0 % (0-8) 0 % (0-8) Platelet Estimate Adequate Adequate Platelet Morphology Normal Normal Hypochromasia 2+ 3+ Anisocytosis 3+ 3+ Microcytosis 3+ 3+ Sodium Level 147 MMOL/L (136-145) H 144 MMOL/L (136-145) Potassium Level 4.9 MMOL/L (3.5-5.1) 4.9 MMOL/L (3.5-5.1) Chloride Level 104 MMOL/L (98-107) 105 MMOL/L (98-107) Carbon Dioxide Level 41 MMOL/L (21-32) *H 39 MMOL/L (21-32) H Anion Gap 2 mmol/L (5-15) L 0 mmol/L (5-15) L Blood Urea Nitrogen 58 mg/dL (7-18) H 56 mg/dL (7-18) H Creatinine 1.7 MG/DL (0.55-1.30) H 1.5 MG/DL (0.55-1.30) H Estimat Glomerular Filtration Rate 44.9 mL/min (>60) 51.8 mL/min (>60) Glucose Level 153 MG/DL (74-106) H 173 MG/DL (74-106) H Calcium Level 7.7 MG/DL (8.5-10.1) L 7.5 MG/DL (8.5-10.1) L Total Bilirubin 0.9 MG/DL (0.2-1.0) 0.8 MG/DL (0.2-1.0) Aspartate Amino Transf (AST/SGOT) 32 U/L (15-37) 22 U/L (15-37) Alanine Aminotransferase (ALT/SGPT) 42 U/L (12-78) 32 U/L (12-78) Alkaline Phosphatase 100 U/L (46-116) 93 U/L (46-116) Total Protein 6.7 G/DL (6.4-8.2) 6.5 G/DL (6.4-8.2) Albumin 2.1 G/DL (3.4-5.0) L 2.0 G/DL (3.4-5.0) L Globulin 4.6 g/dL 4.5 g/dL Albumin/Globulin Ratio 0.5 (1.0-2.7) L 0.4 (1.0-2.7) L Poikilocytosis 3+ Target Cells 2+ Ovalocytes 1+ Stomatocytes 1+ ASHVIN LOVE M.D. Oct 21, 2017 08:49
[2017-10-21] MEDS: Docusate 100mg/10ml Liq GT SCH ×2 (09:18→18:04)
[2017-10-21] MEDS: Pantoprazole Inj IV SCH (09:19)
[2017-10-21] MEDS: Solu-MEDROL 40mg Inj IVP SCH ×2 (09:19→20:44)
[2017-10-21] MEDS: Heparin 5000 units/ml inj SUBQ SCH (09:20)
[2017-10-21] MEDS ORDERED: Sterile Water Irrig 1000ml IRRIG ONE (10:23)
[2017-10-21] MEDS ORDERED: Tubing IV Secondary IV ONE (10:23)
[2017-10-21] MEDS ORDERED: NS 275ml ONE (10:23)
--- NOTE | 2017-10-21 10:42 | Nephrology Progress Note ---
Assessment/Plan Problem List: (1) Acute respiratory failure (2) Acute renal failure Assessment: with previous urinary out let obstruction Assessment had an episode of spontaneous extubation and reintubation Acute renal failure- Cr 1.5 today Acute Respiratory distress , ? aspiration pneumonia, intubated ARDS Acute Pulmonary edema Anasarca scotal cellutis Morbid obesity. Thrombocytopenia. Abnormal blood sugar. Anemia. Plan Plan: K and Mag supplement as needed Keep BP in check pulm support avoid nephrotoxics monitor renal parameters per consultants / pulmonary per orders Left ventricular ejection fraction estimated to be grossly normal. Mild left ventricular hypertrophy. Subjective ROS Limited/Unobtainable: Yes Objective Objective Last 24 Hour Vital Signs Date Time Temp Pulse Resp B/P (MAP) Pulse Ox O2 Delivery O2 Flow Rate FiO2 10/21/17 10:30 68 28 111/62 94 Mechanical Ventilator 90 10/21/17 10:00 64 30 115/56 93 Mechanical Ventilator 90 10/21/17 09:30 73 30 111/52 94 Mechanical Ventilator 90 10/21/17 09:00 64 30 115/56 93 Mechanical Ventilator 90 10/21/17 08:32 61 30 95 Mechanical Ventilator 90 10/21/17 08:30 64 30 111/52 94 Mechanical Ventilator 90 10/21/17 08:30 61 30 90 10/21/17 08:24 62 30 95 Mechanical Ventilator 90 10/21/17 08:00 65 10/21/17 08:00 90 10/21/17 08:00 100.0 62 30 112/60 95 Mechanical Ventilator 90 10/21/17 07:32 100.0 10/21/17 07:23 66 28 90 10/21/17 07:02 22 10/21/17 07:00 65 30 110/56 94 Mechanical Ventilator 90 10/21/17 07:00 26 10/21/17 06:30 71 24 116/57 94 Mechanical Ventilator 90 10/21/17 06:00 63 22 113/60 95 Mechanical Ventilator 90 10/21/17 05:30 65 27 115/59 95 Mechanical Ventilator 90 10/21/17 05:00 70 20 114/57 94 Mechanical Ventilator 90 10/21/17 05:00 22 10/21/17 04:36 73 33 90 10/21/17 04:30 72 26 114/57 95 Mechanical Ventilator 90 10/21/17 04:00 28 10/21/17 04:00 90 10/21/17 04:00 99.9 68 28 111/52 95 Mechanical Ventilator 90 10/21/17 03:44 69 10/21/17 03:30 72 28 112/59 95 Mechanical Ventilator 90 10/21/17 03:22 20 10/21/17 03:00 78 31 90 10/21/17 03:00 73 28 111/56 95 Mechanical Ventilator 90 10/21/17 03:00 28 10/21/17 03:00 28 10/21/17 02:30 78 28 113/62 94 Mechanical Ventilator 90 10/21/17 02:00 71 28 118/62 94 Mechanical Ventilator 90 10/21/17 01:30 72 23 117/60 93 Mechanical Ventilator 90 10/21/17 01:07 70 30 95 Mechanical Ventilator 90 10/21/17 01:00 72 30 88 Mechanical Ventilator 90 10/21/17 01:00 101.1 74 30 121/61 94 Mechanical Ventilator 90 10/21/17 01:00 70 30 90 10/21/17 00:30 71 32 120/61 94 Mechanical Ventilator 90 10/21/17 00:28 101.2 10/21/17 00:19 71 10/21/17 00:00 101.2 73 31 119/61 94 Mechanical Ventilator 90 10/21/17 00:00 90 10/20/17 23:56 30 10/20/17 23:30 88 26 119/65 93 Mechanical Ventilator 90 10/20/17 23:00 78 29 118/54 93 Mechanical Ventilator 90 10/20/17 23:00 29 10/20/17 23:00 29 10/20/17 22:40 79 31 90 10/20/17 22:30 77 22 115/56 93 Mechanical Ventilator 90 10/20/17 22:00 22 10/20/17 22:00 85 22 118/54 93 Mechanical Ventilator 90 10/20/17 21:30 91 27 110/51 91 Mechanical Ventilator 90 10/20/17 21:00 82 30 90 10/20/17 21:00 28 10/20/17 21:00 28 10/20/17 21:00 86 28 111/56 93 Mechanical Ventilator 90 10/20/17 20:30 79 25 111/56 92 Mechanical Ventilator 90 10/20/17 20:18 27 10/20/17 20:00 99.6 78 30 112/51 91 Mechanical Ventilator 90 10/20/17 20:00 24 10/20/17 20:00 24 10/20/17 19:58 90 10/20/17 19:50 78 10/20/17 19:30 78 30 113/58 91 Mechanical Ventilator 90 10/20/17 19:27 76 30 96 Mechanical Ventilator 100 10/20/17 19:22 73 32 93 Mechanical Ventilator 90 10/20/17 19:00 79 25 117/53 95 Mechanical Ventilator 100 10/20/17 19:00 25 10/20/17 19:00 25 10/20/17 18:57 70 33 90 10/20/17 18:30 76 28 116/56 93 Mechanical Ventilator 100 10/20/17 18:00 23 10/20/17 18:00 23 10/20/17 18:00 72 23 112/59 93 Mechanical Ventilator 100 10/20/17 17:49 23 10/20/17 17:30 73 22 111/52 93 Mechanical Ventilator 100 10/20/17 17:10 97.7 10/20/17 17:02 73 31 90 10/20/17 17:00 20 10/20/17 17:00 20 10/20/17 17:00 79 27 119/60 92 Mechanical Ventilator 100 10/20/17 16:40 19 10/20/17 16:37 20 10/20/17 16:30 79 27 112/62 91 Mechanical Ventilator 100 10/20/17 16:00 78 10/20/17 16:00 97.7 90 26 116/61 90 Mechanical Ventilator 100 10/20/17 16:00 90 10/20/17 16:00 26 10/20/17 15:30 79 26 115/61 92 Mechanical Ventilator 100 10/20/17 15:20 17 10/20/17 15:13 90 30 90 10/20/17 15:00 86 28 110/55 92 Mechanical Ventilator 100 10/20/17 15:00 17 10/20/17 15:00 17 10/20/17 14:30 79 24 110/50 92 Mechanical Ventilator 100 10/20/17 14:03 30 10/20/17 14:00 71 22 114/60 93 Mechanical Ventilator 100 10/20/17 14:00 15 10/20/17 14:00 15 10/20/17 13:47 79 30 95 Mechanical Ventilator 100 10/20/17 13:38 78 30 94 Mechanical Ventilator 90 10/20/17 13:37 72 30 90 10/20/17 13:30 69 15 118/64 94 Mechanical Ventilator 100 10/20/17 13:00 69 15 118/58 93 Mechanical Ventilator 100 10/20/17 13:00 13 10/20/17 13:00 13 10/20/17 12:30 76 26 116/55 93 Mechanical Ventilator 90 10/20/17 12:00 75 10/20/17 12:00 71 13 113/58 95 Mechanical Ventilator 90 10/20/17 12:00 13 10/20/17 12:00 13 10/20/17 12:00 90 10/20/17 11:30 69 13 117/56 93 Mechanical Ventilator 90 10/20/17 11:15 72 30 100 10/20/17 11:00 71 17 119/61 92 Mechanical Ventilator 90 10/20/17 11:00 19 10/20/17 11:00 18 Intake and Output 10/20/17 10/21/17 19:00 07:00 Intake Total 1639.984 ml 1430.000 ml Output Total 3150 ml 1470 ml Balance -1510.016 ml -40.000 ml IV Total 1159.984 ml 900.000 ml Tube Feeding 480 ml 480 ml Other 50 ml Output Urine Total 3150 ml 1470 ml Laboratory Tests 10/21/17 04:00: Arterial Blood pH 7.362, Arterial Blood Partial Pressure CO2 73.6*H, Arterial Blood Partial Pressure O2 85.2, Arterial Blood HCO3 40.8H, Arterial Blood Oxygen Saturation 95.3, Arterial Blood Base Excess 12.4, Naif Test Positive 10/21/17 04:10: White Blood Count 15.6H, Red Blood Count 6.55H, Hemoglobin 12.3L, Hematocrit 43.1, Mean Corpuscular Volume 66L, Mean Corpuscular Hemoglobin 18.8L, Mean Corpuscular Hemoglobin Concent 28.6L, Red Cell Distribution Width 21.0H, Platelet Count 230, Mean Platelet Volume 11.1H, Neutrophils (%) (Auto) , Lymphocytes (%) (Auto) , Monocytes (%) (Auto) , Eosinophils (%) (Auto) , Basophils (%) (Auto) , Differential Total Cells Counted 100, Neutrophils % ( Manual) 95H, Lymphocytes % (Manual) 2L, Monocytes % (Manual) 3, Eosinophils % ( Manual) 0, Basophils % (Manual) 0, Band Neutrophils 0, Platelet Estimate Adequate, Platelet Morphology Normal, Hypochromasia 3+, Poikilocytosis 3+, Anisocytosis 3+, Microcytosis 3+, Target Cells 2+, Ovalocytes 1+, Stomatocytes 1 +, Sodium Level 144, Potassium Level 4.9, Chloride Level 105, Carbon Dioxide Level 39H, Anion Gap 0L, Blood Urea Nitrogen 56H, Creatinine 1.5H, Estimat Glomerular Filtration Rate 51.8, Glucose Level 173H, Calcium Level 7.5L, Total Bilirubin 0.8, Aspartate Amino Transf (AST/SGOT) 22, Alanine Aminotransferase ( ALT/SGPT) 32, Alkaline Phosphatase 93, Total Protein 6.5, Albumin 2.0L, Globulin 4.5, Albumin/Globulin Ratio 0.4L Height (Feet): 5 Height (Inches): 4.00 Weight (Pounds): 356 General Appearance: no apparent distress Objective no other change JAY YANCEY Oct 21, 2017 10:42
[2017-10-21] MEDS: fentaNYL Citrate 2500mcg in NS 250ml IV SCH (10:48)
[2017-10-21 15:48] LABS: APPEARANCE,URINE CLEAR; BILIRUBIN, URINE NEGATIVE (NEGATIVE); COLOR,URINE PALE YELLOW; GLUCOSE, URINE (UA) NEGATIVE (NEGATIVE); KETONES,URINE NEGATIVE (NEGATIVE); LEUKOCYTE ESTERASE ,URINE NEGATIVE (NEGATIVE); NITRITE,URINE NEGATIVE (NEGATIVE); PH,URINE 7 (4.5-8.0); PROTEIN,URINE NEGATIVE (NEGATIVE); UROBILINOGEN,URINE NORMAL MG/DL (0.0-1.0)
[2017-10-21] MEDS: Dyna-Hex 2% Top Sol 2oz TOPIC SCH (19:49)
[2017-10-21] MEDS: Milk of Magnesia 30ml Ud GT PRN (20:44)
[2017-10-22] VITALS (47 sets, daily range): BP systolic 104–169; BP diastolic 51–89
[2017-10-22] MEDS: Acetylcysteine 20% Soln 4ml HHN SCH ×4 (01:05→19:00)
[2017-10-22] MEDS: Meropenem 1 GM in NS 55 ML IVPB SCH ×3 (02:02→20:23)
[2017-10-22] MEDS: Vancomycin 1250mg/D5W 250ml IVPB SCH ×2 (02:03→13:37)
[2017-10-22] MEDS: Midazolam/D5W 100ml 100 ML IVPB PRN ×2 (02:12→06:50)
[2017-10-22] MEDS: fentaNYL Citrate 2500mcg in NS 250ml IV SCH ×2 (04:56→22:50)
[2017-10-22] MEDS: NovoLOG Insulin Flexpen SUBQ SCH ×4 (06:05→21:00)
[2017-10-22 08:33] LABS: HEMATOCRIT 46.8 % (42.0-52.0); HEMOGLOBIN 12.8 G/DL (14.2-18.0); MEAN CORPUSCULAR VOLUME 67 FL (80-99); PLATELET COUNT 245 K/UL (150-450); RED BLOOD COUNT 7.04 M/UL (4.70-6.10); RED CELL DISTRIBUTION WIDTH 21.6 % (11.6-14.8)
[2017-10-22 08:50] LABS: ALANINE AMINOTRANSFERASE 31 U/L (12-78); ALBUMIN 1.9 G/DL (3.4-5.0); ALBUMIN/GLOBULIN RATIO 0.4 (1.0-2.7); ALKALINE PHOSPHATASE 112 U/L (46-116); ANION GAP -3 mmol/L (5-15); ASPARTATE AMINO TRANSFERASE 20 U/L (15-37); BILIRUBIN,TOTAL 0.7 MG/DL (0.2-1.0); BLOOD UREA NITROGEN 49 mg/dL (7-18); CALCIUM 7.6 MG/DL (8.5-10.1); CHLORIDE 108 MMOL/L (98-107); CREATININE 1.1 MG/DL (0.55-1.30); SODIUM 145 MMOL/L (136-145)
[2017-10-22] MEDS: Pantoprazole Inj IV SCH (08:54)
[2017-10-22] MEDS: Solu-MEDROL 40mg Inj IVP SCH ×2 (08:54→20:46)
[2017-10-22] MEDS: Docusate 100mg/10ml Liq GT SCH ×2 (08:54→17:13)
[2017-10-22] MEDS: Heparin 5000 units/ml inj SUBQ SCH (08:57)
[2017-10-22 09:10] LABS: CARBON DIOXIDE 41 MMOL/L (21-32)
[2017-10-22] MEDS ORDERED: Haloperidol 5mg/ml Inj ONE (09:32)
--- NOTE | 2017-10-22 09:38 | Diagnostic Imaging Report ---
Indication: Reason For Exam: TUBE PLCMA Technique: XRAY Chest 1v Comparison:10/20/2017 Findings: Endotracheal tube remains in place finding to the level of T2. The heart remains enlarged. Extensive bilateral airspace disease and pulmonary vascular redistribution is noted. Impression: Cardiomegaly with congestive heart failure and pulmonary edema or superimposed pneumonia. Endotracheal tube with the tip at T2. No other change.
--- NOTE | 2017-10-22 10:10 | Pulmonolgy Critical Care Note ---
Critical Care - Asmt/Plan Problems: (1) ARDS (adult respiratory distress syndrome) (2) Acute respiratory failure (3) Cellulitis of scrotum (4) Respiratory distress (5) Pulmonary edema (6) Anasarca (7) scotal cellutis (8) Acute renal failure (9) Sinus bradycardia Assessment/Plan: -Check ECG, trop, cards eval -Continue Abx per ID, F/U Cx's and WCt -Will need PEG and TRACH -Continue ventilatory support -Continue current settings -Repeat ABG -Titrate down FiO2 to keep SaO2 > 90%, keep PEEP as is for now -D/W RT, there in not John @ [facility], consider paralysis, proning would not be technically feasible -Optimize pulmonary hygiene/mobilize as tolerated -Continue RTC and PRN DUOnebs + NAC HHN's -Decrease SM to 20 IV BID, taper slowly -F/U BAL studies -Monitor volumes and renal function --> no IVF, PRN spot dose Lasix - will give 20 IV x 1 today -Unable to do CT chest 2/2 weight -Unable to tx to [facility] 2/2 insurance, awaiting authorization for [facility] -NGTF's as tolerated -DVT Px: Hep SQ -FC, continue to discuss GOC with family CC 45 Critical Care - Objective Last 24 Hour Vital Signs Date Time Temp Pulse Resp B/P (MAP) Pulse Ox O2 Delivery O2 Flow Rate FiO2 10/22/17 09:30 59 27 138/63 98 Mechanical Ventilator 90 10/22/17 09:18 61 30 90 10/22/17 09:00 59 30 118/77 97 Mechanical Ventilator 90 10/22/17 09:00 90 10/22/17 08:00 97.8 42 30 109/69 98 Mechanical Ventilator 90 10/22/17 08:00 43 10/22/17 07:38 44 30 97 Mechanical Ventilator 90 10/22/17 07:30 43 30 104/65 98 Mechanical Ventilator 90 10/22/17 07:28 43 30 98 Mechanical Ventilator 90 10/22/17 07:20 45 30 90 10/22/17 07:00 54 30 114/68 99 Mechanical Ventilator 90 10/22/17 07:00 30 10/22/17 07:00 30 10/22/17 06:50 30 10/22/17 06:30 56 30 113/67 97 Mechanical Ventilator 90 10/22/17 06:00 58 27 120/79 97 Mechanical Ventilator 90 10/22/17 06:00 27 10/22/17 05:30 63 25 124/89 99 Mechanical Ventilator 90 10/22/17 05:00 59 30 122/76 100 Mechanical Ventilator 90 10/22/17 05:00 24 10/22/17 04:56 30 10/22/17 04:52 58 25 90 10/22/17 04:30 75 22 134/72 98 Mechanical Ventilator 90 10/22/17 04:00 98.2 67 27 109/76 95 Mechanical Ventilator 90 10/22/17 04:00 30 10/22/17 04:00 30 10/22/17 04:00 90 10/22/17 03:53 68 10/22/17 03:30 63 31 111/71 97 Mechanical Ventilator 90 10/22/17 03:10 73 19 90 10/22/17 03:00 88 23 114/66 97 Mechanical Ventilator 90 10/22/17 03:00 31 10/22/17 03:00 31 10/22/17 02:30 64 24 109/56 96 Mechanical Ventilator 90 10/22/17 02:12 25 10/22/17 02:00 84 23 109/64 96 Mechanical Ventilator 90 10/22/17 02:00 23 10/22/17 01:33 55 19 95 Mechanical Ventilator 90 10/22/17 01:30 57 25 119/84 96 Mechanical Ventilator 90 10/22/17 01:07 90 10/22/17 01:06 70 26 97 Mechanical Ventilator 90 10/22/17 01:01 73 19 90 10/22/17 01:00 72 30 114/74 96 Mechanical Ventilator 90 10/22/17 00:30 64 30 108/64 96 Mechanical Ventilator 90 10/22/17 00:00 98.2 57 30 107/61 98 Mechanical Ventilator 90 10/22/17 00:00 57 10/22/17 00:00 90 10/22/17 00:00 30 10/22/17 00:00 30 10/21/17 23:30 53 30 108/62 97 Mechanical Ventilator 90 10/21/17 23:03 56 28 90 10/21/17 23:00 53 25 114/76 100 Mechanical Ventilator 90 10/21/17 23:00 28 10/21/17 23:00 28 10/21/17 22:30 62 22 110/64 98 Mechanical Ventilator 90 10/21/17 22:00 67 22 115/67 96 Mechanical Ventilator 90 10/21/17 22:00 22 10/21/17 22:00 22 10/21/17 21:34 30 10/21/17 21:30 63 30 107/61 94 Mechanical Ventilator 90 10/21/17 21:12 51 30 90 10/21/17 21:00 30 10/21/17 21:00 51 30 108/66 94 Mechanical Ventilator 90 10/21/17 20:30 57 30 109/69 95 Mechanical Ventilator 90 10/21/17 20:00 99.4 59 30 111/73 92 Mechanical Ventilator 90 10/21/17 20:00 90 10/21/17 20:00 30 10/21/17 20:00 30 10/21/17 19:49 79 10/21/17 19:30 62 24 123/64 92 Mechanical Ventilator 90 10/21/17 19:22 61 30 94 Mechanical Ventilator 90 10/21/17 19:05 90 10/21/17 19:04 61 30 93 Mechanical Ventilator 90 10/21/17 19:00 61 28 115/59 95 Mechanical Ventilator 90 10/21/17 19:00 24 10/21/17 18:55 64 10/21/17 18:54 65 30 90 10/21/17 18:30 66 28 115/59 94 Mechanical Ventilator 90 10/21/17 18:00 67 27 119/67 94 Mechanical Ventilator 90 10/21/17 18:00 27 10/21/17 17:46 31 10/21/17 17:30 59 30 108/58 94 Mechanical Ventilator 90 10/21/17 17:09 56 30 90 10/21/17 17:00 30 10/21/17 17:00 54 30 113/68 93 Mechanical Ventilator 90 10/21/17 16:30 54 28 115/72 93 Mechanical Ventilator 90 10/21/17 16:00 61 21 117/70 92 Mechanical Ventilator 90 10/21/17 16:00 90 10/21/17 16:00 30 10/21/17 15:30 65 29 115/63 94 Mechanical Ventilator 90 10/21/17 15:23 72 32 90 10/21/17 15:00 31 10/21/17 15:00 70 31 113/63 93 Mechanical Ventilator 90 10/21/17 14:30 63 27 117/56 93 Mechanical Ventilator 90 10/21/17 14:00 64 25 117/56 93 Mechanical Ventilator 90 10/21/17 14:00 25 10/21/17 13:30 66 27 117/64 93 Mechanical Ventilator 90 10/21/17 13:11 69 32 96 Mechanical Ventilator 90 10/21/17 13:04 61 30 94 Mechanical Ventilator 90 10/21/17 13:03 61 34 90 10/21/17 13:00 71 25 112/59 93 Mechanical Ventilator 90 10/21/17 13:00 31 10/21/17 12:30 61 27 117/64 95 Mechanical Ventilator 90 10/21/17 12:05 32 10/21/17 12:00 61 10/21/17 12:00 100.1 61 25 118/68 95 Mechanical Ventilator 90 10/21/17 12:00 90 10/21/17 11:59 25 10/21/17 11:30 61 26 113/61 95 Mechanical Ventilator 90 10/21/17 11:18 60 28 90 10/21/17 11:00 63 26 114/67 95 Mechanical Ventilator 90 10/21/17 10:49 26 10/21/17 10:48 27 10/21/17 10:30 68 28 111/62 94 Mechanical Ventilator 90 Status: sedated Condition: critical HEENT: atraumatic, normocephalic, other - ETT, R NGT Lungs: rhonchi - scattered anterior Heart: HR/BP unstable, other - Sinus vincent, BP stable Abdomen: soft, non-tender, active bowel sounds Extremities: no C/C/E Objective: Scrotal edema, erythema and warmth slightly improved Micro: Microbiology Date/Time Source Procedure Growth Status 10/20/17 15:00 Blood Blood Culture - Preliminary NO GROWTH AFTER 24 HOURS Resulted 10/20/17 14:50 Blood Blood Culture - Preliminary NO GROWTH AFTER 24 HOURS Resulted Accucheck: 126 Critical Care - Subjective ROS Limited/Unobtainable: Yes ICU Day: 15 Intubation Day: 15 (3) Interval Events: CX with PVC and ? superimposed new inf, WCt 20, Afebrile, + SB new, no sig secretions, no F/C, milagro TF's Condition: critical IV Access: PICC EKG Rhythm: Sinus Bradycardia FI02: 90 Vent Support Breath Rate: 30 Vent Support Mode: AC Vent Tidal Volume: 500 Sputum Amount: Scant PEEP: 10.0 PIP: 35 Tube Feeding Amount: 40 I&O: Intake and Output 10/21/17 10/22/17 19:00 07:00 Intake Total 938.5 ml 1382.000 ml Output Total 1670 ml 1410 ml Balance -731.5 ml -28.000 ml IV Total 458.5 ml 852.000 ml Tube Feeding 480 ml 480 ml Other 50 ml Output Urine Total 1670 ml 1410 ml Subjective: Not obtainable CXR: PVC, ? new infiltrates ET-Tube: 7.5 ET Position: 22 Labs: Laboratory Tests Test 10/21/17 14:56 10/22/17 00:30 10/22/17 04:00 10/22/17 08:15 Urine Color Pale yellow Urine Appearance Clear Urine pH 7 (4.5-8.0) Urine Specific [place] 1.010 (1.005-1.035) Urine Protein Negative (NEGATIVE) Urine Glucose (UA) Negative (NEGATIVE) Urine Ketones Negative (NEGATIVE) Urine Occult Blood 5+ (NEGATIVE) H Urine Nitrite Negative (NEGATIVE) Urine Bilirubin Negative (NEGATIVE) Urine Urobilinogen Normal MG/DL (0.0-1.0) Urine Leukocyte Esterase Negative (NEGATIVE) Urine RBC 2-4 /HPF (0 - 0) H Urine WBC 0-2 /HPF (0 - 0) Urine Squamous Epithelial Cells Occasional /LPF Urine Amorphous Sediment Moderate /LPF (NONE) H Urine Bacteria Few /HPF (NONE) Vancomycin Level Trough 11.3 ug/mL (5.0-12.0) Arterial Blood pH 7.410 (7.350-7.450) Arterial Blood Partial Pressure CO2 62.3 mmHg (35.0-45.0) *H Arterial Blood Partial Pressure O2 97.0 mmHg (75.0-100.0) Arterial Blood HCO3 38.7 mmol/L (22.0-26.0) H Arterial Blood Oxygen Saturation 97.0 % (92.0-98.0) Arterial Blood Base Excess 11.5 Naif Test Positive White Blood Count 20.0 K/UL (4.8-10.8) H Red Blood Count 7.04 M/UL (4.70-6.10) H Hemoglobin 12.8 G/DL (14.2-18.0) L Hematocrit 46.8 % (42.0-52.0) Mean Corpuscular Volume 67 FL (80-99) L Mean Corpuscular Hemoglobin 18.1 PG (27.0-31.0) L Mean Corpuscular Hemoglobin Concent 27.3 G/DL (32.0-36.0) L Red Cell Distribution Width 21.6 % (11.6-14.8) H Platelet Count 245 K/UL (150-450) Mean Platelet Volume 10.3 FL (6.5-10.1) H Neutrophils (%) (Auto) % (45.0-75.0) Lymphocytes (%) (Auto) % (20.0-45.0) Monocytes (%) (Auto) % (1.0-10.0) Eosinophils (%) (Auto) % (0.0-3.0) Basophils (%) (Auto) % (0.0-2.0) Neutrophils % (Manual) Pending Lymphocytes % (Manual) Pending Platelet Estimate Pending Platelet Morphology Pending Sodium Level 145 MMOL/L (136-145) Potassium Level 5.0 MMOL/L (3.5-5.1) Chloride Level 108 MMOL/L (98-107) H Carbon Dioxide Level 41 MMOL/L (21-32) *H Anion Gap -3 mmol/L (5-15) L Blood Urea Nitrogen 49 mg/dL (7-18) H Creatinine 1.1 MG/DL (0.55-1.30) Estimat Glomerular Filtration Rate > 60 mL/min (>60) Glucose Level 168 MG/DL (74-106) H Calcium Level 7.6 MG/DL (8.5-10.1) L Total Bilirubin 0.7 MG/DL (0.2-1.0) Aspartate Amino Transf (AST/SGOT) 20 U/L (15-37) Alanine Aminotransferase (ALT/SGPT) 31 U/L (12-78) Alkaline Phosphatase 112 U/L (46-116) Troponin I 0.007 ng/mL (0.000-0.056) Pro-B-Type Natriuretic Peptide 721 pg/mL (0-125) H Total Protein 6.3 G/DL (6.4-8.2) L Albumin 1.9 G/DL (3.4-5.0) L Globulin 4.4 g/dL Albumin/Globulin Ratio 0.4 (1.0-2.7) L ASHVIN LOVE M.D. Oct 22, 2017 10:10
--- NOTE | 2017-10-22 10:56 | Nephrology Progress Note ---
Assessment/Plan Problem List: (1) Acute respiratory failure (2) Acute renal failure Assessment: with previous urinary out let obstruction Assessment had an episode of spontaneous extubation and reintubation Acute renal failure- Cr WNL today Acute Respiratory distress , ? aspiration pneumonia, intubated ARDS Acute Pulmonary edema Anasarca scotal cellutis Morbid obesity. Thrombocytopenia. Abnormal blood sugar. Anemia. Plan Plan: K and Mag supplement as needed Keep BP in check pulm support avoid nephrotoxics monitor renal parameters per consultants / pulmonary per orders Left ventricular ejection fraction estimated to be grossly normal. Mild left ventricular hypertrophy. Subjective ROS Limited/Unobtainable: Yes Objective Objective Last 24 Hour Vital Signs Date Time Temp Pulse Resp B/P (MAP) Pulse Ox O2 Delivery O2 Flow Rate FiO2 10/22/17 10:30 58 30 107/67 96 Mechanical Ventilator 90 10/22/17 10:00 68 24 115/67 98 Mechanical Ventilator 90 10/22/17 09:30 59 27 138/63 98 Mechanical Ventilator 90 10/22/17 09:18 61 30 90 10/22/17 09:00 59 30 118/77 97 Mechanical Ventilator 90 10/22/17 09:00 90 10/22/17 08:00 97.8 42 30 109/69 98 Mechanical Ventilator 90 10/22/17 08:00 43 10/22/17 07:38 44 30 97 Mechanical Ventilator 90 10/22/17 07:30 43 30 104/65 98 Mechanical Ventilator 90 10/22/17 07:28 43 30 98 Mechanical Ventilator 90 10/22/17 07:20 45 30 90 10/22/17 07:00 54 30 114/68 99 Mechanical Ventilator 90 10/22/17 07:00 30 10/22/17 07:00 30 10/22/17 06:50 30 10/22/17 06:30 56 30 113/67 97 Mechanical Ventilator 90 10/22/17 06:00 58 27 120/79 97 Mechanical Ventilator 90 10/22/17 06:00 27 10/22/17 05:30 63 25 124/89 99 Mechanical Ventilator 90 10/22/17 05:00 59 30 122/76 100 Mechanical Ventilator 90 10/22/17 05:00 24 10/22/17 04:56 30 10/22/17 04:52 58 25 90 10/22/17 04:30 75 22 134/72 98 Mechanical Ventilator 90 10/22/17 04:00 98.2 67 27 109/76 95 Mechanical Ventilator 90 10/22/17 04:00 30 10/22/17 04:00 30 10/22/17 04:00 90 10/22/17 03:53 68 10/22/17 03:30 63 31 111/71 97 Mechanical Ventilator 90 10/22/17 03:10 73 19 90 10/22/17 03:00 88 23 114/66 97 Mechanical Ventilator 90 10/22/17 03:00 31 10/22/17 03:00 31 10/22/17 02:30 64 24 109/56 96 Mechanical Ventilator 90 10/22/17 02:12 25 10/22/17 02:00 84 23 109/64 96 Mechanical Ventilator 90 10/22/17 02:00 23 10/22/17 01:33 55 19 95 Mechanical Ventilator 90 10/22/17 01:30 57 25 119/84 96 Mechanical Ventilator 90 10/22/17 01:07 90 10/22/17 01:06 70 26 97 Mechanical Ventilator 90 10/22/17 01:01 73 19 90 10/22/17 01:00 72 30 114/74 96 Mechanical Ventilator 90 10/22/17 00:30 64 30 108/64 96 Mechanical Ventilator 90 10/22/17 00:00 98.2 57 30 107/61 98 Mechanical Ventilator 90 10/22/17 00:00 57 10/22/17 00:00 90 10/22/17 00:00 30 10/22/17 00:00 30 10/21/17 23:30 53 30 108/62 97 Mechanical Ventilator 90 10/21/17 23:03 56 28 90 10/21/17 23:00 53 25 114/76 100 Mechanical Ventilator 90 10/21/17 23:00 28 10/21/17 23:00 28 10/21/17 22:30 62 22 110/64 98 Mechanical Ventilator 90 10/21/17 22:00 67 22 115/67 96 Mechanical Ventilator 90 10/21/17 22:00 22 10/21/17 22:00 22 10/21/17 21:34 30 10/21/17 21:30 63 30 107/61 94 Mechanical Ventilator 90 10/21/17 21:12 51 30 90 10/21/17 21:00 30 10/21/17 21:00 51 30 108/66 94 Mechanical Ventilator 90 10/21/17 20:30 57 30 109/69 95 Mechanical Ventilator 90 10/21/17 20:00 99.4 59 30 111/73 92 Mechanical Ventilator 90 10/21/17 20:00 90 10/21/17 20:00 30 10/21/17 20:00 30 10/21/17 19:49 79 10/21/17 19:30 62 24 123/64 92 Mechanical Ventilator 90 10/21/17 19:22 61 30 94 Mechanical Ventilator 90 10/21/17 19:05 90 10/21/17 19:04 61 30 93 Mechanical Ventilator 90 10/21/17 19:00 61 28 115/59 95 Mechanical Ventilator 90 10/21/17 19:00 24 10/21/17 18:55 64 10/21/17 18:54 65 30 90 10/21/17 18:30 66 28 115/59 94 Mechanical Ventilator 90 10/21/17 18:00 67 27 119/67 94 Mechanical Ventilator 90 10/21/17 18:00 27 10/21/17 17:46 31 10/21/17 17:30 59 30 108/58 94 Mechanical Ventilator 90 10/21/17 17:09 56 30 90 10/21/17 17:00 30 10/21/17 17:00 54 30 113/68 93 Mechanical Ventilator 90 10/21/17 16:30 54 28 115/72 93 Mechanical Ventilator 90 10/21/17 16:00 61 21 117/70 92 Mechanical Ventilator 90 10/21/17 16:00 90 10/21/17 16:00 30 10/21/17 15:30 65 29 115/63 94 Mechanical Ventilator 90 10/21/17 15:23 72 32 90 10/21/17 15:00 31 10/21/17 15:00 70 31 113/63 93 Mechanical Ventilator 90 10/21/17 14:30 63 27 117/56 93 Mechanical Ventilator 90 10/21/17 14:00 64 25 117/56 93 Mechanical Ventilator 90 10/21/17 14:00 25 10/21/17 13:30 66 27 117/64 93 Mechanical Ventilator 90 10/21/17 13:11 69 32 96 Mechanical Ventilator 90 10/21/17 13:04 61 30 94 Mechanical Ventilator 90 10/21/17 13:03 61 34 90 10/21/17 13:00 71 25 112/59 93 Mechanical Ventilator 90 10/21/17 13:00 31 10/21/17 12:30 61 27 117/64 95 Mechanical Ventilator 90 10/21/17 12:05 32 10/21/17 12:00 61 10/21/17 12:00 100.1 61 25 118/68 95 Mechanical Ventilator 90 10/21/17 12:00 90 10/21/17 11:59 25 10/21/17 11:30 61 26 113/61 95 Mechanical Ventilator 90 10/21/17 11:18 60 28 90 10/21/17 11:00 63 26 114/67 95 Mechanical Ventilator 90 Intake and Output 10/21/17 10/22/17 19:00 07:00 Intake Total 938.5 ml 1382.000 ml Output Total 1670 ml 1410 ml Balance -731.5 ml -28.000 ml IV Total 458.5 ml 852.000 ml Tube Feeding 480 ml 480 ml Other 50 ml Output Urine Total 1670 ml 1410 ml Laboratory Tests 10/21/17 14:56: Urine Color Pale yellow, Urine Appearance Clear, Urine pH 7, Urine Specific [place] 1.010, Urine Protein Negative, Urine Glucose (UA) Negative, Urine Ketones Negative, Urine Occult Blood 5+H, Urine Nitrite Negative, Urine Bilirubin Negative, Urine Urobilinogen Normal, Urine Leukocyte Esterase Negative , Urine RBC 2-4H, Urine WBC 0-2, Urine Squamous Epithelial Cells Occasional, Urine Amorphous Sediment ModerateH, Urine Bacteria Few 10/22/17 00:30: Vancomycin Level Trough 11.3 10/22/17 04:00: Arterial Blood pH 7.410, Arterial Blood Partial Pressure CO2 62.3*H, Arterial Blood Partial Pressure O2 97.0, Arterial Blood HCO3 38.7H, Arterial Blood Oxygen Saturation 97.0, Arterial Blood Base Excess 11.5, Naif Test Positive 10/22/17 08:15: White Blood Count 20.0H, Red Blood Count 7.04H, Hemoglobin 12.8L, Hematocrit 46.8, Mean Corpuscular Volume 67L, Mean Corpuscular Hemoglobin 18.1L, Mean Corpuscular Hemoglobin Concent 27.3L, Red Cell Distribution Width 21.6H, Platelet Count 245, Mean Platelet Volume 10.3H, Neutrophils (%) (Auto) , Lymphocytes (%) (Auto) , Monocytes (%) (Auto) , Eosinophils (%) (Auto) , Basophils (%) (Auto) , Differential Total Cells Counted 100, Neutrophils % ( Manual) 94H, Lymphocytes % (Manual) 2L, Monocytes % (Manual) 4, Eosinophils % ( Manual) 0, Basophils % (Manual) 0, Band Neutrophils 0, Platelet Estimate Adequate, Platelet Morphology Normal, Hypochromasia 1+, Anisocytosis 2+, Microcytosis 2+, Sodium Level 145, Potassium Level 5.0, Chloride Level 108H, Carbon Dioxide Level 41*H, Anion Gap -3L, Blood Urea Nitrogen 49H, Creatinine 1.1, Estimat Glomerular Filtration Rate > 60, Glucose Level 168H, Calcium Level 7.6L, Total Bilirubin 0.7, Aspartate Amino Transf (AST/SGOT) 20, Alanine Aminotransferase (ALT/SGPT) 31, Alkaline Phosphatase 112, Troponin I 0.007, Pro- B-Type Natriuretic Peptide 721H, Total Protein 6.3L, Albumin 1.9L, Globulin 4.4 , Albumin/Globulin Ratio 0.4L Height (Feet): 5 Height (Inches): 4.00 Weight (Pounds): 356 General Appearance: no apparent distress Objective no other change JAY YANCEY Oct 22, 2017 10:56
[2017-10-22 11:20] LABS: PHOSPHORUS 3.7 MG/DL (2.5-4.9)
--- NOTE | 2017-10-22 12:39 | Infectious Diseases Prog Note ---
Assessment/Plan Assessment/Plan ASSESSMENT: The patient is a 42-year-old male with, Leukocytosis ( on steroids ) increased Fever ( after self extubation ) improving Possible aspiration pneumonia versus community-acquired pneumonia. Scx : P mirabilis , 10/13 C-Xray worsening of infiltrate vs edema Probable scrotal cellulitis versus discoloration of genitalia due to edema. CRP 09/15 HIV , Crypt : neg U leg Ab and Ag: neg ARDS CORA improving PICC 10/09 VDRF self extub and reintubated 10/19 Congestive heart failure. PLAN: Cont pt on Merrem d# 10/ , Diflucan d# 6 ( Empiric for possible coccidio ) , add Vanco d# 3 10/17 sp vancomycin and Doxy d# 10 / 10 10/13 sp Zosyn d# 5 Monitor CBC. Monitor BMP. Monitor cultures ( Ur, blood ) Continue vent support. Monitor chest x-ray Coccidio and Histo :P Fungitell Subjective Allergies: Coded Allergies: No Known Allergies (Unverified , 10/06/17) Subjective Febrile on Vent 80% FiO2 Objective Vital Signs Last 24 Hour Vital Signs Date Time Temp Pulse Resp B/P (MAP) Pulse Ox O2 Delivery O2 Flow Rate FiO2 10/22/17 11:30 65 30 113/67 96 Mechanical Ventilator 80 10/22/17 11:20 69 30 80 10/22/17 11:00 65 30 117/76 95 Mechanical Ventilator 90 10/22/17 11:00 21 10/22/17 10:30 58 30 107/67 96 Mechanical Ventilator 90 10/22/17 10:00 68 24 115/67 98 Mechanical Ventilator 90 10/22/17 10:00 25 10/22/17 09:30 59 27 138/63 98 Mechanical Ventilator 90 10/22/17 09:18 61 30 90 10/22/17 09:00 59 30 118/77 97 Mechanical Ventilator 90 10/22/17 09:00 90 10/22/17 09:00 26 10/22/17 08:00 97.8 42 30 109/69 98 Mechanical Ventilator 90 10/22/17 08:00 43 10/22/17 08:00 30 10/22/17 08:00 30 10/22/17 07:38 44 30 97 Mechanical Ventilator 90 10/22/17 07:30 43 30 104/65 98 Mechanical Ventilator 90 10/22/17 07:28 43 30 98 Mechanical Ventilator 90 10/22/17 07:20 45 30 90 10/22/17 07:00 54 30 114/68 99 Mechanical Ventilator 90 10/22/17 07:00 30 10/22/17 07:00 30 10/22/17 06:50 30 10/22/17 06:30 56 30 113/67 97 Mechanical Ventilator 90 10/22/17 06:00 58 27 120/79 97 Mechanical Ventilator 90 10/22/17 06:00 27 10/22/17 05:30 63 25 124/89 99 Mechanical Ventilator 90 10/22/17 05:00 59 30 122/76 100 Mechanical Ventilator 90 10/22/17 05:00 24 10/22/17 04:56 30 10/22/17 04:52 58 25 90 10/22/17 04:30 75 22 134/72 98 Mechanical Ventilator 90 10/22/17 04:00 98.2 67 27 109/76 95 Mechanical Ventilator 90 10/22/17 04:00 30 10/22/17 04:00 30 10/22/17 04:00 90 10/22/17 03:53 68 10/22/17 03:30 63 31 111/71 97 Mechanical Ventilator 90 10/22/17 03:10 73 19 90 10/22/17 03:00 88 23 114/66 97 Mechanical Ventilator 90 10/22/17 03:00 31 10/22/17 03:00 31 10/22/17 02:30 64 24 109/56 96 Mechanical Ventilator 90 10/22/17 02:12 25 10/22/17 02:00 84 23 109/64 96 Mechanical Ventilator 90 10/22/17 02:00 23 10/22/17 01:33 55 19 95 Mechanical Ventilator 90 10/22/17 01:30 57 25 119/84 96 Mechanical Ventilator 90 10/22/17 01:07 90 10/22/17 01:06 70 26 97 Mechanical Ventilator 90 10/22/17 01:01 73 19 90 10/22/17 01:00 72 30 114/74 96 Mechanical Ventilator 90 10/22/17 00:30 64 30 108/64 96 Mechanical Ventilator 90 10/22/17 00:00 98.2 57 30 107/61 98 Mechanical Ventilator 90 10/22/17 00:00 57 10/22/17 00:00 90 10/22/17 00:00 30 10/22/17 00:00 30 10/21/17 23:30 53 30 108/62 97 Mechanical Ventilator 90 10/21/17 23:03 56 28 90 10/21/17 23:00 53 25 114/76 100 Mechanical Ventilator 90 10/21/17 23:00 28 10/21/17 23:00 28 10/21/17 22:30 62 22 110/64 98 Mechanical Ventilator 90 10/21/17 22:00 67 22 115/67 96 Mechanical Ventilator 90 10/21/17 22:00 22 10/21/17 22:00 22 10/21/17 21:34 30 10/21/17 21:30 63 30 107/61 94 Mechanical Ventilator 90 10/21/17 21:12 51 30 90 10/21/17 21:00 30 10/21/17 21:00 51 30 108/66 94 Mechanical Ventilator 90 10/21/17 20:30 57 30 109/69 95 Mechanical Ventilator 90 10/21/17 20:00 99.4 59 30 111/73 92 Mechanical Ventilator 90 10/21/17 20:00 90 10/21/17 20:00 30 10/21/17 20:00 30 10/21/17 19:49 79 10/21/17 19:30 62 24 123/64 92 Mechanical Ventilator 90 10/21/17 19:22 61 30 94 Mechanical Ventilator 90 10/21/17 19:05 90 10/21/17 19:04 61 30 93 Mechanical Ventilator 90 10/21/17 19:00 61 28 115/59 95 Mechanical Ventilator 90 10/21/17 19:00 24 10/21/17 18:55 64 10/21/17 18:54 65 30 90 10/21/17 18:30 66 28 115/59 94 Mechanical Ventilator 90 10/21/17 18:00 67 27 119/67 94 Mechanical Ventilator 90 10/21/17 18:00 27 10/21/17 17:46 31 10/21/17 17:30 59 30 108/58 94 Mechanical Ventilator 90 10/21/17 17:09 56 30 90 10/21/17 17:00 30 10/21/17 17:00 54 30 113/68 93 Mechanical Ventilator 90 10/21/17 16:30 54 28 115/72 93 Mechanical Ventilator 90 10/21/17 16:00 61 21 117/70 92 Mechanical Ventilator 90 10/21/17 16:00 90 10/21/17 16:00 30 10/21/17 15:30 65 29 115/63 94 Mechanical Ventilator 90 10/21/17 15:23 72 32 90 10/21/17 15:00 31 10/21/17 15:00 70 31 113/63 93 Mechanical Ventilator 90 10/21/17 14:30 63 27 117/56 93 Mechanical Ventilator 90 10/21/17 14:00 64 25 117/56 93 Mechanical Ventilator 90 10/21/17 14:00 25 10/21/17 13:30 66 27 117/64 93 Mechanical Ventilator 90 10/21/17 13:11 69 32 96 Mechanical Ventilator 90 10/21/17 13:04 61 30 94 Mechanical Ventilator 90 10/21/17 13:03 61 34 90 10/21/17 13:00 71 25 112/59 93 Mechanical Ventilator 90 10/21/17 13:00 31 Height (Feet): 5 Height (Inches): 4.00 Weight (Pounds): 356 HEENT: atraumatic Respiratory/Chest: chest wall non-tender Cardiovascular: normal rate Abdomen: soft, non tender Microbiology Date/Time Source Procedure Growth Status 10/20/17 15:00 Blood Blood Culture - Preliminary NO GROWTH AFTER 24 HOURS Resulted 10/20/17 14:50 Blood Blood Culture - Preliminary NO GROWTH AFTER 24 HOURS Resulted 10/21/17 14:56 Indwelling Cath Urine Culture - Preliminary NO GROWTH Resulted Laboratory Tests Test 10/21/17 14:56 10/22/17 00:30 10/22/17 04:00 10/22/17 08:15 Urine Color Pale yellow Urine Appearance Clear Urine pH 7 (4.5-8.0) Urine Specific [place] 1.010 (1.005-1.035) Urine Protein Negative (NEGATIVE) Urine Glucose (UA) Negative (NEGATIVE) Urine Ketones Negative (NEGATIVE) Urine Occult Blood 5+ (NEGATIVE) H Urine Nitrite Negative (NEGATIVE) Urine Bilirubin Negative (NEGATIVE) Urine Urobilinogen Normal MG/DL (0.0-1.0) Urine Leukocyte Esterase Negative (NEGATIVE) Urine RBC 2-4 /HPF (0 - 0) H Urine WBC 0-2 /HPF (0 - 0) Urine Squamous Epithelial Cells Occasional /LPF Urine Amorphous Sediment Moderate /LPF (NONE) H Urine Bacteria Few /HPF (NONE) Vancomycin Level Trough 11.3 ug/mL (5.0-12.0) Arterial Blood pH 7.410 (7.350-7.450) Arterial Blood Partial Pressure CO2 62.3 mmHg (35.0-45.0) *H Arterial Blood Partial Pressure O2 97.0 mmHg (75.0-100.0) Arterial Blood HCO3 38.7 mmol/L (22.0-26.0) H Arterial Blood Oxygen Saturation 97.0 % (92.0-98.0) Arterial Blood Base Excess 11.5 Naif Test Positive White Blood Count 20.0 K/UL (4.8-10.8) H Red Blood Count 7.04 M/UL (4.70-6.10) H Hemoglobin 12.8 G/DL (14.2-18.0) L Hematocrit 46.8 % (42.0-52.0) Mean Corpuscular Volume 67 FL (80-99) L Mean Corpuscular Hemoglobin 18.1 PG (27.0-31.0) L Mean Corpuscular Hemoglobin Concent 27.3 G/DL (32.0-36.0) L Red Cell Distribution Width 21.6 % (11.6-14.8) H Platelet Count 245 K/UL (150-450) Mean Platelet Volume 10.3 FL (6.5-10.1) H Neutrophils (%) (Auto) % (45.0-75.0) Lymphocytes (%) (Auto) % (20.0-45.0) Monocytes (%) (Auto) % (1.0-10.0) Eosinophils (%) (Auto) % (0.0-3.0) Basophils (%) (Auto) % (0.0-2.0) Differential Total Cells Counted 100 Neutrophils % (Manual) 94 % (45-75) H Lymphocytes % (Manual) 2 % (20-45) L Monocytes % (Manual) 4 % (1-10) Eosinophils % (Manual) 0 % (0-3) Basophils % (Manual) 0 % (0-2) Band Neutrophils 0 % (0-8) Platelet Estimate Adequate Platelet Morphology Normal Hypochromasia 1+ Anisocytosis 2+ Microcytosis 2+ Sodium Level 145 MMOL/L (136-145) Potassium Level 5.0 MMOL/L (3.5-5.1) Chloride Level 108 MMOL/L (98-107) H Carbon Dioxide Level 41 MMOL/L (21-32) *H Anion Gap -3 mmol/L (5-15) L Blood Urea Nitrogen 49 mg/dL (7-18) H Creatinine 1.1 MG/DL (0.55-1.30) Estimat Glomerular Filtration Rate > 60 mL/min (>60) Glucose Level 168 MG/DL (74-106) H Calcium Level 7.6 MG/DL (8.5-10.1) L Phosphorus Level 3.7 MG/DL (2.5-4.9) Magnesium Level 2.5 MG/DL (1.8-2.4) H Total Bilirubin 0.7 MG/DL (0.2-1.0) Aspartate Amino Transf (AST/SGOT) 20 U/L (15-37) Alanine Aminotransferase (ALT/SGPT) 31 U/L (12-78) Alkaline Phosphatase 112 U/L (46-116) Troponin I 0.007 ng/mL (0.000-0.056) Pro-B-Type Natriuretic Peptide 721 pg/mL (0-125) H Total Protein 6.3 G/DL (6.4-8.2) L Albumin 1.9 G/DL (3.4-5.0) L Globulin 4.4 g/dL Albumin/Globulin Ratio 0.4 (1.0-2.7) L Current Medications Medications (Trade) Dose Ordered Sig/Prince Route PRN Reason Start Time Stop Time Status Last Admin Dose Admin Acetaminophen (Tylenol) 650 mg EVERY 4 HOURS PRN NG Mild Pain/Temp > 100.5 10/09/17 10:15 11/08/17 10:14 10/20/17 23:58 Acetylcysteine (Mucomyst) 200 mg Q6HRT HHN 10/15/17 13:00 11/14/17 12:59 10/22/17 07:27 Chlorhexidine Gluconate (Sol-Hex 2%) 1 applic DAILY@1999 TOPIC 10/09/17 20:00 11/08/17 19:59 10/21/17 19:49 Dextrose (Dextrose 50%) STAT PRN IV Hypoglycemia 10/12/17 11:00 11/11/17 10:59 Docusate Sodium (Colace) 100 mg BID GT 10/13/17 17:00 11/12/17 16:59 10/22/17 08:54 Fentanyl Citrate 2500 mcg/Sodium Chloride 250 ml @ 0 mls/hr Q24H IV 10/20/17 15:30 10/27/17 15:29 10/22/17 04:56 Fluconazole/ Sodium Chloride 200 ml @ 100 mls/hr Q24H IV 10/17/17 12:00 10/24/17 11:59 10/22/17 11:38 Haloperidol Lactate 5 mg/ Dextrose 56 ml @ 224 mls/hr Q1H PRN IVPB BREAKTHROUGH AGITATION 10/08/17 17:00 11/07/17 16:59 10/17/17 02:23 Heparin Sodium (Porcine) (Heparin 5000 units/ml) 5,000 units DAILY SUBQ 10/08/17 11:00 11/07/17 10:59 10/22/17 08:57 Insulin Aspart (NovoLOG) BEFORE MEALS AND HS SUBQ 10/12/17 11:30 11/11/17 11:29 10/22/17 10:51 Magnesium Hydroxide (Mom) 30 ml DAILYPRN PRN GT Constipation 10/13/17 16:30 11/12/17 16:29 10/21/17 20:44 Meropenem 1 gm/ Sodium Chloride 55 ml @ 110 mls/hr Q8HR@0200,1200,2000 IVPB 10/20/17 12:00 10/25/17 11:59 10/22/17 11:38 Methylprednisolone Sodium Succinate (Solu-MEDROL) 20 mg Q12HR IVP 10/22/17 21:00 11/21/17 20:59 Pantoprazole (Protonix) 40 mg DAILY IV 10/07/17 11:00 11/06/17 10:59 10/22/17 08:54 Vancomycin HCl (Vanco rx to dose) 1 ea DAILY PRN MISC Per rx protocol 10/20/17 11:15 11/19/17 11:14 Vancomycin HCl/ Dextrose 250 ml @ 166.667 mls/hr Q12HR@0100,1300 IVPB 10/20/17 13:00 10/25/17 12:59 10/22/17 02:03 CATALINA PARRA M.D. Oct 22, 2017 12:39
[2017-10-22] MEDS ORDERED: NS 275ml ONE (17:27)
[2017-10-22] MEDS ORDERED: Sterile Water Irrig 1000ml IRRIG ONE (17:27)
[2017-10-22] MEDS: Haloperidol Lactate 5 MG in D5W 55 ML IVPB PRN ×2 (19:44→21:34)
[2017-10-22] MEDS: Dyna-Hex 2% Top Sol 2oz TOPIC SCH (20:23)
[2017-10-23] VITALS (49 sets, daily range): BP systolic 96–175; BP diastolic 23–99
[2017-10-23] MEDS: Acetylcysteine 20% Soln 4ml HHN SCH ×4 (01:00→20:01)
[2017-10-23] MEDS: Meropenem 1 GM in NS 55 ML IVPB SCH ×3 (01:54→19:42)
[2017-10-23] MEDS: Haloperidol Lactate 5 MG in D5W 55 ML IVPB PRN ×8 (04:11→19:28)
[2017-10-23] MEDS: Vancomycin 1500mg IVPB SCH ×2 (05:34→18:09)
[2017-10-23 05:49] LABS: HEMATOCRIT 45.6 % (42.0-52.0); HEMOGLOBIN 12.7 G/DL (14.2-18.0); MEAN CORPUSCULAR VOLUME 67 FL (80-99); PLATELET COUNT 235 K/UL (150-450); RED BLOOD COUNT 6.79 M/UL (4.70-6.10); RED CELL DISTRIBUTION WIDTH 21.7 % (11.6-14.8); WHITE BLOOD COUNT 20.2 K/UL (4.8-10.8)
[2017-10-23] MEDS: NovoLOG Insulin Flexpen SUBQ SCH ×4 (06:20→21:00)
[2017-10-23 06:21] LABS: ALANINE AMINOTRANSFERASE 36 U/L (12-78); ALBUMIN/GLOBULIN RATIO 0.5 (1.0-2.7); ALKALINE PHOSPHATASE 117 U/L (46-116); ANION GAP 1 mmol/L (5-15); ASPARTATE AMINO TRANSFERASE 27 U/L (15-37); BILIRUBIN,TOTAL 0.8 MG/DL (0.2-1.0); BLOOD UREA NITROGEN 47 mg/dL (7-18); CALCIUM 8.1 MG/DL (8.5-10.1); CARBON DIOXIDE 39 MMOL/L (21-32); CHLORIDE 106 MMOL/L (98-107); CREATININE 1.1 MG/DL (0.55-1.30); POTASSIUM 5.3 MMOL/L (3.5-5.1); SODIUM 146 MMOL/L (136-145)
[2017-10-23] MEDS: Heparin 5000 units/ml inj SUBQ SCH (08:22)
[2017-10-23] MEDS: Docusate 100mg/10ml Liq GT SCH ×2 (08:23→18:09)
[2017-10-23] MEDS: Pantoprazole Inj IV SCH (08:23)
[2017-10-23] MEDS: Solu-MEDROL 40mg Inj IVP SCH ×2 (08:23→21:00)
--- NOTE | 2017-10-23 09:13 | Nephrology Progress Note ---
Assessment/Plan Problem List: (1) Acute respiratory failure (2) Acute renal failure Assessment: with previous urinary out let obstruction Assessment Cr stable- High K due to part hemolysis due to hard phlebotomy stick had an episode of spontaneous extubation and reintubation Acute renal failure- Cr WNL Acute Respiratory distress , ? aspiration pneumonia, intubated ARDS Acute Pulmonary edema Anasarca scotal cellutis Morbid obesity. Thrombocytopenia. Abnormal blood sugar. Anemia. Plan Plan: per consultants K and Mag supplement as needed Keep BP in check pulm support avoid nephrotoxics monitor renal parameters per consultants / pulmonary per orders Left ventricular ejection fraction estimated to be grossly normal. Mild left ventricular hypertrophy. Subjective ROS Limited/Unobtainable: Yes Objective Objective Last 24 Hour Vital Signs Date Time Temp Pulse Resp B/P (MAP) Pulse Ox O2 Delivery O2 Flow Rate FiO2 10/23/17 08:56 94 34 70 10/23/17 08:04 76 0 95 Mechanical Ventilator 70 10/23/17 08:00 70 10/23/17 07:43 65 30 97 Mechanical Ventilator 70 10/23/17 07:42 64 24 70 10/23/17 07:00 59 30 100/47 97 Mechanical Ventilator 70 10/23/17 07:00 60 10/23/17 06:30 60 30 101/48 97 Mechanical Ventilator 70 10/23/17 06:00 30 10/23/17 06:00 60 30 105/52 96 Mechanical Ventilator 70 10/23/17 05:30 64 30 101/44 96 Mechanical Ventilator 70 10/23/17 05:30 67 30 70 10/23/17 05:00 30 10/23/17 05:00 70 29 105/50 97 Mechanical Ventilator 70 10/23/17 04:30 68 30 103/53 96 Mechanical Ventilator 70 10/23/17 04:00 68 10/23/17 04:00 70 10/23/17 04:00 30 10/23/17 04:00 99.2 71 30 112/56 96 Mechanical Ventilator 70 10/23/17 03:30 71 30 111/56 96 Mechanical Ventilator 70 10/23/17 03:28 77 30 70 10/23/17 03:00 30 10/23/17 03:00 73 30 106/60 95 Mechanical Ventilator 80 10/23/17 02:30 58 30 102/61 94 Mechanical Ventilator 80 10/23/17 02:00 30 10/23/17 02:00 60 30 104/65 94 Mechanical Ventilator 80 10/23/17 01:30 58 30 103/67 96 Mechanical Ventilator 80 10/23/17 01:30 64 30 70 10/23/17 01:20 Mechanical Ventilator 10/23/17 01:19 Mechanical Ventilator 10/23/17 01:00 56 30 105/67 96 Mechanical Ventilator 80 10/23/17 01:00 30 10/23/17 00:30 57 30 101/62 96 Mechanical Ventilator 80 10/23/17 00:00 57 10/23/17 00:00 80 10/23/17 00:00 30 10/23/17 00:00 99.6 64 30 104/63 96 Mechanical Ventilator 80 10/22/17 23:30 69 28 169/80 97 Mechanical Ventilator 80 10/22/17 23:30 67 28 80 10/22/17 23:00 61 30 111/68 97 Mechanical Ventilator 80 10/22/17 23:00 30 10/22/17 22:50 30 10/22/17 22:30 59 30 106/60 98 Mechanical Ventilator 80 10/22/17 22:00 28 10/22/17 22:00 65 29 110/57 98 Mechanical Ventilator 80 10/22/17 21:30 70 28 80 10/22/17 21:30 66 29 104/51 96 Mechanical Ventilator 80 10/22/17 21:00 74 29 105/58 96 Mechanical Ventilator 80 10/22/17 21:00 20 10/22/17 20:30 74 28 104/51 96 Mechanical Ventilator 80 10/22/17 20:00 79 10/22/17 20:00 99.4 79 28 108/64 96 Mechanical Ventilator 80 10/22/17 20:00 29 10/22/17 19:30 78 30 80 10/22/17 19:30 Mechanical Ventilator 10/22/17 19:30 Mechanical Ventilator 10/22/17 19:30 94 24 123/68 97 Mechanical Ventilator 80 10/22/17 19:00 64 24 111/64 97 Mechanical Ventilator 80 10/22/17 19:00 20 10/22/17 18:30 64 16 107/59 96 Mechanical Ventilator 80 10/22/17 18:00 79 19 106/51 96 Mechanical Ventilator 80 10/22/17 18:00 19 10/22/17 17:30 78 22 105/52 96 Mechanical Ventilator 80 10/22/17 17:14 69 30 80 10/22/17 17:00 80 26 115/62 96 Mechanical Ventilator 80 10/22/17 17:00 21 10/22/17 17:00 70 28 115/62 95 Mechanical Ventilator 80 10/22/17 16:30 66 30 111/65 96 Mechanical Ventilator 80 10/22/17 16:00 72 10/22/17 16:00 99.7 69 27 111/65 97 Mechanical Ventilator 80 10/22/17 16:00 80 10/22/17 16:00 26 10/22/17 15:30 70 27 119/61 97 Mechanical Ventilator 80 10/22/17 15:00 71 26 109/60 98 Mechanical Ventilator 80 10/22/17 15:00 26 10/22/17 14:54 63 30 80 10/22/17 14:30 69 29 111/61 97 Mechanical Ventilator 80 10/22/17 14:00 73 20 112/62 98 Mechanical Ventilator 80 10/22/17 14:00 29 10/22/17 13:30 69 30 125/68 96 Mechanical Ventilator 80 10/22/17 13:00 68 28 125/68 96 Mechanical Ventilator 80 10/22/17 13:00 28 10/22/17 12:51 63 30 99 Mechanical Ventilator 80 10/22/17 12:40 61 30 98 Mechanical Ventilator 80 10/22/17 12:37 61 30 80 10/22/17 12:30 66 29 113/67 96 Mechanical Ventilator 80 10/22/17 12:00 98.9 66 27 113/64 95 Mechanical Ventilator 80 10/22/17 12:00 80 10/22/17 12:00 27 10/22/17 12:00 65 10/22/17 11:30 65 30 113/67 96 Mechanical Ventilator 80 10/22/17 11:20 69 30 80 10/22/17 11:00 65 30 117/76 95 Mechanical Ventilator 80 10/22/17 11:00 21 10/22/17 10:30 58 30 107/67 96 Mechanical Ventilator 90 10/22/17 10:00 68 24 115/67 98 Mechanical Ventilator 90 10/22/17 10:00 25 10/22/17 09:30 59 27 138/63 98 Mechanical Ventilator 90 10/22/17 09:18 61 30 90 Intake and Output 10/22/17 10/23/17 19:00 07:00 Intake Total 1214.877 ml 925 ml Output Total 2300 ml 1320 ml Balance -1085.123 ml -395 ml Free Water 50 ml IV Total 734.877 ml 395 ml Tube Feeding 480 ml 480 ml Output Urine Total 2300 ml 1320 ml Stool Total 0 ml Laboratory Tests 10/23/17 05:00: White Blood Count 20.2H, Red Blood Count 6.79H, Hemoglobin 12.7L, Hematocrit 45.6, Mean Corpuscular Volume 67L, Mean Corpuscular Hemoglobin 18.7L, Mean Corpuscular Hemoglobin Concent 27.8L, Red Cell Distribution Width 21.7H, Platelet Count 235, Mean Platelet Volume 9.0, Neutrophils (%) (Auto) , Lymphocytes (%) (Auto) , Monocytes (%) (Auto) , Eosinophils (%) (Auto) , Basophils (%) (Auto) , Differential Total Cells Counted 100, Neutrophils % ( Manual) 94H, Lymphocytes % (Manual) 2L, Monocytes % (Manual) 4, Eosinophils % ( Manual) 0, Basophils % (Manual) 0, Band Neutrophils 0, Platelet Estimate Adequate, Platelet Morphology Normal, Hypochromasia 1+, Anisocytosis 2+, Microcytosis 2+, Sodium Level 146H, Potassium Level 5.3H, Chloride Level 106, Carbon Dioxide Level 39H, Anion Gap 1L, Blood Urea Nitrogen 47H, Creatinine 1.1 , Estimat Glomerular Filtration Rate > 60, Glucose Level 126H, Calcium Level 8.1L, Total Bilirubin 0.8, Aspartate Amino Transf (AST/SGOT) 27, Alanine Aminotransferase (ALT/SGPT) 36, Alkaline Phosphatase 117H, Total Protein 6.2L, Albumin 2.0L, Globulin 4.2, Albumin/Globulin Ratio 0.5L Height (Feet): 5 Height (Inches): 4.00 Weight (Pounds): 356 General Appearance: no apparent distress Cardiovascular: tachycardia Respiratory/Chest: decreased breath sounds Abdomen: distended Objective no other change JAY YANCEY Oct 23, 2017 09:13
--- NOTE | 2017-10-23 09:26 | Infectious Diseases Prog Note ---
Assessment/Plan Assessment/Plan ASSESSMENT: The patient is a 42-year-old male with, Leukocytosis ( on steroids ) increased, persistent 10/21 u/a neg,ucx NTD, BCx NTD Fever ( after self extubation ) improving Possible aspiration pneumonia versus community-acquired pneumonia. Scx : P mirabilis -BAL cx 10/18 neg 10/13 C-Xray worsening of infiltrate vs edema Probable scrotal cellulitis versus discoloration of genitalia due to edema. CRP 09/15 HIV , Crypt, Aspergillus ab : neg U leg Ab and Ag: neg ARDS CORA improving PICC 10/09 VDRF self extub and reintubated 10/19 Congestive heart failure. PLAN: Cont pt on Merrem d# 11/ , Diflucan d# 7 ( Empiric for possible coccidio ) , and Vanco d# 4 10/17 sp vancomycin and Doxy d# 10 / 10 10/13 sp Zosyn d# 5 Monitor CBC. Monitor BMP. Monitor cultures ( Ur, blood ) Continue vent support. Monitor chest x-ray Coccidio and Histo :P Fungitell Subjective Allergies: Coded Allergies: No Known Allergies (Unverified , 10/06/17) Subjective afebrile in ~48hrs all repeat cx NTD FIo2 70% persistent leukocytosis to 20 Objective Vital Signs Last 24 Hour Vital Signs Date Time Temp Pulse Resp B/P (MAP) Pulse Ox O2 Delivery O2 Flow Rate FiO2 10/23/17 08:56 94 34 70 10/23/17 08:04 76 0 95 Mechanical Ventilator 70 10/23/17 08:00 70 10/23/17 07:43 65 30 97 Mechanical Ventilator 70 10/23/17 07:42 64 24 70 10/23/17 07:00 59 30 100/47 97 Mechanical Ventilator 70 10/23/17 07:00 60 10/23/17 06:30 60 30 101/48 97 Mechanical Ventilator 70 10/23/17 06:00 30 10/23/17 06:00 60 30 105/52 96 Mechanical Ventilator 70 10/23/17 05:30 64 30 101/44 96 Mechanical Ventilator 70 10/23/17 05:30 67 30 70 10/23/17 05:00 30 10/23/17 05:00 70 29 105/50 97 Mechanical Ventilator 70 10/23/17 04:30 68 30 103/53 96 Mechanical Ventilator 70 10/23/17 04:00 68 10/23/17 04:00 70 10/23/17 04:00 30 10/23/17 04:00 99.2 71 30 112/56 96 Mechanical Ventilator 70 10/23/17 03:30 71 30 111/56 96 Mechanical Ventilator 70 10/23/17 03:28 77 30 70 10/23/17 03:00 30 10/23/17 03:00 73 30 106/60 95 Mechanical Ventilator 80 10/23/17 02:30 58 30 102/61 94 Mechanical Ventilator 80 10/23/17 02:00 30 10/23/17 02:00 60 30 104/65 94 Mechanical Ventilator 80 10/23/17 01:30 58 30 103/67 96 Mechanical Ventilator 80 10/23/17 01:30 64 30 70 10/23/17 01:20 Mechanical Ventilator 10/23/17 01:19 Mechanical Ventilator 10/23/17 01:00 56 30 105/67 96 Mechanical Ventilator 80 10/23/17 01:00 30 10/23/17 00:30 57 30 101/62 96 Mechanical Ventilator 80 10/23/17 00:00 57 10/23/17 00:00 80 10/23/17 00:00 30 10/23/17 00:00 99.6 64 30 104/63 96 Mechanical Ventilator 80 10/22/17 23:30 69 28 169/80 97 Mechanical Ventilator 80 10/22/17 23:30 67 28 80 10/22/17 23:00 61 30 111/68 97 Mechanical Ventilator 80 10/22/17 23:00 30 10/22/17 22:50 30 10/22/17 22:30 59 30 106/60 98 Mechanical Ventilator 80 10/22/17 22:00 28 10/22/17 22:00 65 29 110/57 98 Mechanical Ventilator 80 10/22/17 21:30 70 28 80 10/22/17 21:30 66 29 104/51 96 Mechanical Ventilator 80 10/22/17 21:00 74 29 105/58 96 Mechanical Ventilator 80 10/22/17 21:00 20 10/22/17 20:30 74 28 104/51 96 Mechanical Ventilator 80 10/22/17 20:00 79 10/22/17 20:00 99.4 79 28 108/64 96 Mechanical Ventilator 80 10/22/17 20:00 29 10/22/17 19:30 78 30 80 10/22/17 19:30 Mechanical Ventilator 10/22/17 19:30 Mechanical Ventilator 10/22/17 19:30 94 24 123/68 97 Mechanical Ventilator 80 10/22/17 19:00 64 24 111/64 97 Mechanical Ventilator 80 10/22/17 19:00 20 10/22/17 18:30 64 16 107/59 96 Mechanical Ventilator 80 10/22/17 18:00 79 19 106/51 96 Mechanical Ventilator 80 10/22/17 18:00 19 10/22/17 17:30 78 22 105/52 96 Mechanical Ventilator 80 10/22/17 17:14 69 30 80 10/22/17 17:00 80 26 115/62 96 Mechanical Ventilator 80 10/22/17 17:00 21 10/22/17 17:00 70 28 115/62 95 Mechanical Ventilator 80 10/22/17 16:30 66 30 111/65 96 Mechanical Ventilator 80 10/22/17 16:00 72 10/22/17 16:00 99.7 69 27 111/65 97 Mechanical Ventilator 80 10/22/17 16:00 80 10/22/17 16:00 26 10/22/17 15:30 70 27 119/61 97 Mechanical Ventilator 80 10/22/17 15:00 71 26 109/60 98 Mechanical Ventilator 80 10/22/17 15:00 26 10/22/17 14:54 63 30 80 10/22/17 14:30 69 29 111/61 97 Mechanical Ventilator 80 10/22/17 14:00 73 20 112/62 98 Mechanical Ventilator 80 10/22/17 14:00 29 10/22/17 13:30 69 30 125/68 96 Mechanical Ventilator 80 10/22/17 13:00 68 28 125/68 96 Mechanical Ventilator 80 10/22/17 13:00 28 10/22/17 12:51 63 30 99 Mechanical Ventilator 80 10/22/17 12:40 61 30 98 Mechanical Ventilator 80 10/22/17 12:37 61 30 80 10/22/17 12:30 66 29 113/67 96 Mechanical Ventilator 80 10/22/17 12:00 98.9 66 27 113/64 95 Mechanical Ventilator 80 10/22/17 12:00 80 10/22/17 12:00 27 10/22/17 12:00 65 12/25/17 11:30 65 30 113/67 96 Mechanical Ventilator 80 10/22/17 11:20 69 30 80 10/22/17 11:00 65 30 117/76 95 Mechanical Ventilator 80 10/22/17 11:00 21 10/22/17 10:30 58 30 107/67 96 Mechanical Ventilator 90 10/22/17 10:00 68 24 115/67 98 Mechanical Ventilator 90 10/22/17 10:00 25 10/22/17 09:30 59 27 138/63 98 Mechanical Ventilator 90 Height (Feet): 5 Height (Inches): 4.00 Weight (Pounds): 356 Objective Status: sedated Condition: critical HEENT: atraumatic, normocephalic, other - ETT, R NGT Lungs: rhonchi - scattered anterior Heart: RRR Abdomen: soft, non-tender, active bowel sounds Extremities: no C/C/E Genitalia:Scrotal edema, erythema and warmth slightly improved Microbiology Date/Time Source Procedure Growth Status 10/21/17 09:26 Blood Blood Culture - Preliminary NO GROWTH AFTER 24 HOURS Resulted 10/21/17 09:16 Blood Blood Culture - Preliminary NO GROWTH AFTER 24 HOURS Resulted 10/20/17 15:00 Blood Blood Culture - Preliminary NO GROWTH AFTER 48 HOURS Resulted 10/20/17 14:50 Blood Blood Culture - Preliminary NO GROWTH AFTER 48 HOURS Resulted 10/21/17 14:56 Indwelling Cath Urine Culture - Preliminary NO GROWTH AFTER 24 HOURS Resulted Laboratory Tests Test 10/23/17 05:00 White Blood Count 20.2 K/UL (4.8-10.8) H Red Blood Count 6.79 M/UL (4.70-6.10) H Hemoglobin 12.7 G/DL (14.2-18.0) L Hematocrit 45.6 % (42.0-52.0) Mean Corpuscular Volume 67 FL (80-99) L Mean Corpuscular Hemoglobin 18.7 PG (27.0-31.0) L Mean Corpuscular Hemoglobin Concent 27.8 G/DL (32.0-36.0) L Red Cell Distribution Width 21.7 % (11.6-14.8) H Platelet Count 235 K/UL (150-450) Mean Platelet Volume 9.0 FL (6.5-10.1) Neutrophils (%) (Auto) % (45.0-75.0) Lymphocytes (%) (Auto) % (20.0-45.0) Monocytes (%) (Auto) % (1.0-10.0) Eosinophils (%) (Auto) % (0.0-3.0) Basophils (%) (Auto) % (0.0-2.0) Differential Total Cells Counted 100 Neutrophils % (Manual) 94 % (45-75) H Lymphocytes % (Manual) 2 % (20-45) L Monocytes % (Manual) 4 % (1-10) Eosinophils % (Manual) 0 % (0-3) Basophils % (Manual) 0 % (0-2) Band Neutrophils 0 % (0-8) Platelet Estimate Adequate Platelet Morphology Normal Hypochromasia 1+ Anisocytosis 2+ Microcytosis 2+ Sodium Level 146 MMOL/L (136-145) H Potassium Level 5.3 MMOL/L (3.5-5.1) H Chloride Level 106 MMOL/L (98-107) Carbon Dioxide Level 39 MMOL/L (21-32) H Anion Gap 1 mmol/L (5-15) L Blood Urea Nitrogen 47 mg/dL (7-18) H Creatinine 1.1 MG/DL (0.55-1.30) Estimat Glomerular Filtration Rate > 60 mL/min (>60) Glucose Level 126 MG/DL (74-106) H Calcium Level 8.1 MG/DL (8.5-10.1) L Total Bilirubin 0.8 MG/DL (0.2-1.0) Aspartate Amino Transf (AST/SGOT) 27 U/L (15-37) Alanine Aminotransferase (ALT/SGPT) 36 U/L (12-78) Alkaline Phosphatase 117 U/L (46-116) H Total Protein 6.2 G/DL (6.4-8.2) L Albumin 2.0 G/DL (3.4-5.0) L Globulin 4.2 g/dL Albumin/Globulin Ratio 0.5 (1.0-2.7) L Current Medications Medications (Trade) Dose Ordered Sig/Prince Route PRN Reason Start Time Stop Time Status Last Admin Dose Admin Acetaminophen (Tylenol) 650 mg EVERY 4 HOURS PRN NG Mild Pain/Temp > 100.5 10/09/17 10:15 11/08/17 10:14 10/20/17 23:58 Acetylcysteine (Mucomyst) 200 mg Q6HRT HHN 10/15/17 13:00 11/14/17 12:59 10/23/17 07:00 Chlorhexidine Gluconate (Sol-Hex 2%) 1 applic DAILY@1999 TOPIC 10/09/17 20:00 11/08/17 19:59 10/22/17 20:23 Dextrose (Dextrose 50%) STAT PRN IV Hypoglycemia 10/12/17 11:00 11/11/17 10:59 Docusate Sodium (Colace) 100 mg BID GT 10/13/17 17:00 11/12/17 16:59 10/23/17 08:23 Fentanyl Citrate 2500 mcg/Sodium Chloride 250 ml @ 0 mls/hr Q24H IV 10/20/17 15:30 10/27/17 15:29 10/22/17 22:50 Fluconazole/ Sodium Chloride 200 ml @ 100 mls/hr Q24H IV 10/17/17 12:00 10/24/17 11:59 10/22/17 11:38 Haloperidol Lactate 5 mg/ Dextrose 56 ml @ 224 mls/hr Q1H PRN IVPB BREAKTHROUGH AGITATION 10/08/17 17:00 11/07/17 16:59 10/23/17 08:18 Heparin Sodium (Porcine) (Heparin 5000 units/ml) 5,000 units DAILY SUBQ 10/08/17 11:00 11/07/17 10:59 10/23/17 08:22 Insulin Aspart (NovoLOG) BEFORE MEALS AND HS SUBQ 10/12/17 11:30 11/11/17 11:29 10/23/17 06:20 Magnesium Hydroxide (Mom) 30 ml DAILYPRN PRN GT Constipation 10/13/17 16:30 11/12/17 16:29 10/21/17 20:44 Meropenem 1 gm/ Sodium Chloride 55 ml @ 110 mls/hr Q8HR@0200,1200,1999 IVPB 10/20/17 12:00 10/25/17 11:59 10/23/17 01:54 Methylprednisolone Sodium Succinate (Solu-MEDROL) 20 mg Q12HR IVP 10/22/17 21:00 11/21/17 20:59 10/23/17 08:23 Pantoprazole (Protonix) 40 mg DAILY IV 10/07/17 11:00 11/06/17 10:59 10/23/17 08:23 Vancomycin HCl (Vanco rx to dose) 1 ea DAILY PRN MISC Per rx protocol 10/20/17 11:15 11/19/17 11:14 Vancomycin HCl/ Dextrose 250 ml @ 125 mls/hr Q12HR@0600,1800 IVPB 10/23/17 06:00 10/28/17 05:59 10/23/17 05:34 Evelin Lam M.D. Oct 23, 2017 09:26
--- NOTE | 2017-10-23 11:50 | Pulmonolgy Critical Care Note ---
Critical Care - Asmt/Plan Assessment/Plan: ASSESSMENT Acute hypercapnic RF requiring intubation likely aspiration PNA with Proteus acute pulmonary edema ARDS Likely scrotal cellulitis Anasarca Urinary retention-relieved ARF likely ATN -resolved hypernatremia-improved Thrombocytopenia psoriasis morbid obesity new onset of diabetes PLAN OF CARE ICU Vent support, pulmonary toilet daily CXR and ABG ABG this am with worsening hypercapnia, no acidosis, keep current settings continue steroids with very slow tapering abx ID follows sputum cx + Proteus, repeated sputum cx + Proteus; urine cx negative, blood cx negative last CXR 10/22 with probable new infiltrate ( + leuk, + low grade fever) s/p bronch 10/18 with evidence of ARDS, extensive airway inflammation, but no active alveolar bleeding bronchial washing cx negative nephro follows creat down to normal s/p IVF no further IVF, spot diuresis prn monitor renal parameters, lytes, correct as need, avoid nephrotoxic prior: renal US with 1500cc urinary retention Carrington placed by urologist scrotal US results pending elevate scrotum Venous Duplex BLE negative ECHO with grossly preserved EF, normal wall motion to the extent visualized Pain management DVT/GI prophylaxis Monitor counts MeD4t-3 new onset of DM BS management , started on a sensitive SSI prn strict aspiration precautions, NGT feeding discussed with mother at the bedside in detail about poor prognosis and seriousness of condition on 10/12 mother had further discussion with PMD and dr Steinberg, initially decided on terminal care but later changed her mind to full code overall prognosis grave will need trach and PEG if recovers from ARDS( slim chances) need transfer to a higher level of care, will likely benefic from ECMO unable to transfer to [facility] due to insurance issues on a waiting list to [facility] case discussed and evaluated by supervising physician Critical Care - Objective Last 24 Hour Vital Signs Date Time Temp Pulse Resp B/P (MAP) Pulse Ox O2 Delivery O2 Flow Rate FiO2 10/23/17 10:30 69 24 103/55 95 Mechanical Ventilator 70 10/23/17 10:00 82 24 104/58 95 Mechanical Ventilator 70 10/23/17 09:30 91 24 104/56 95 Mechanical Ventilator 70 10/23/17 09:15 97 24 104/66 95 Mechanical Ventilator 70 10/23/17 09:00 99.9 10/23/17 09:00 97 24 104/66 95 Mechanical Ventilator 70 10/23/17 08:56 94 34 70 10/23/17 08:30 92 26 96/45 95 Mechanical Ventilator 70 10/23/17 08:04 76 0 95 Mechanical Ventilator 70 10/23/17 08:00 100.6 92 26 131/72 95 Mechanical Ventilator 70 10/23/17 08:00 70 10/23/17 08:00 71 10/23/17 07:43 65 30 97 Mechanical Ventilator 70 10/23/17 07:42 64 24 70 10/23/17 07:30 59 30 104/56 97 Mechanical Ventilator 70 10/23/17 07:00 59 30 100/47 97 Mechanical Ventilator 70 10/23/17 07:00 60 10/23/17 06:30 60 30 101/48 97 Mechanical Ventilator 70 10/23/17 06:00 30 10/23/17 06:00 60 30 105/52 96 Mechanical Ventilator 70 10/23/17 05:30 64 30 101/44 96 Mechanical Ventilator 70 10/23/17 05:30 67 30 70 10/23/17 05:00 30 10/23/17 05:00 70 29 105/50 97 Mechanical Ventilator 70 10/23/17 04:30 68 30 103/53 96 Mechanical Ventilator 70 10/23/17 04:00 68 10/23/17 04:00 70 10/23/17 04:00 30 10/23/17 04:00 99.2 71 30 112/56 96 Mechanical Ventilator 70 10/23/17 03:30 71 30 111/56 96 Mechanical Ventilator 70 10/23/17 03:28 77 30 70 10/23/17 03:00 30 10/23/17 03:00 73 30 106/60 95 Mechanical Ventilator 80 10/23/17 02:30 58 30 102/61 94 Mechanical Ventilator 80 10/23/17 02:00 30 10/23/17 02:00 60 30 104/65 94 Mechanical Ventilator 80 10/23/17 01:30 58 30 103/67 96 Mechanical Ventilator 80 10/23/17 01:30 64 30 70 10/23/17 01:20 Mechanical Ventilator 10/23/17 01:19 Mechanical Ventilator 10/23/17 01:00 56 30 105/67 96 Mechanical Ventilator 80 10/23/17 01:00 30 10/23/17 00:30 57 30 101/62 96 Mechanical Ventilator 80 10/23/17 00:00 57 10/23/17 00:00 80 10/23/17 00:00 30 10/23/17 00:00 99.6 64 30 104/63 96 Mechanical Ventilator 80 10/22/17 23:30 69 28 169/80 97 Mechanical Ventilator 80 10/22/17 23:30 67 28 80 10/22/17 23:00 61 30 111/68 97 Mechanical Ventilator 80 10/22/17 23:00 30 10/22/17 22:50 30 10/22/17 22:30 59 30 106/60 98 Mechanical Ventilator 80 10/22/17 22:00 28 10/22/17 22:00 65 29 110/57 98 Mechanical Ventilator 80 10/22/17 21:30 70 28 80 10/22/17 21:30 66 29 104/51 96 Mechanical Ventilator 80 10/22/17 21:00 74 29 105/58 96 Mechanical Ventilator 80 10/22/17 21:00 20 10/22/17 20:30 74 28 104/51 96 Mechanical Ventilator 80 10/22/17 20:00 79 10/22/17 20:00 99.4 79 28 108/64 96 Mechanical Ventilator 80 10/22/17 20:00 29 10/22/17 19:30 78 30 80 10/22/17 19:30 Mechanical Ventilator 10/22/17 19:30 Mechanical Ventilator 10/22/17 19:30 94 24 123/68 97 Mechanical Ventilator 80 10/22/17 19:00 64 24 111/64 97 Mechanical Ventilator 80 10/22/17 19:00 20 10/22/17 18:30 64 16 107/59 96 Mechanical Ventilator 80 10/22/17 18:00 79 19 106/51 96 Mechanical Ventilator 80 10/22/17 18:00 19 10/22/17 17:30 78 22 105/52 96 Mechanical Ventilator 80 10/22/17 17:14 69 30 80 10/22/17 17:00 80 26 115/62 96 Mechanical Ventilator 80 10/22/17 17:00 21 10/22/17 17:00 70 28 115/62 95 Mechanical Ventilator 80 10/22/17 16:30 66 30 111/65 96 Mechanical Ventilator 80 10/22/17 16:00 72 10/22/17 16:00 99.7 69 27 111/65 97 Mechanical Ventilator 80 10/22/17 16:00 80 10/22/17 16:00 26 10/22/17 15:30 70 27 119/61 97 Mechanical Ventilator 80 10/22/17 15:00 71 26 109/60 98 Mechanical Ventilator 80 10/22/17 15:00 26 10/22/17 14:54 63 30 80 10/22/17 14:30 69 29 111/61 97 Mechanical Ventilator 80 10/22/17 14:00 73 20 112/62 98 Mechanical Ventilator 80 10/22/17 14:00 29 10/22/17 13:30 69 30 125/68 96 Mechanical Ventilator 80 10/22/17 13:00 68 28 125/68 96 Mechanical Ventilator 80 10/22/17 13:00 28 10/22/17 12:51 63 30 99 Mechanical Ventilator 80 10/22/17 12:40 61 30 98 Mechanical Ventilator 80 10/22/17 12:37 61 30 80 10/22/17 12:30 66 29 113/67 96 Mechanical Ventilator 80 10/22/17 12:00 98.9 66 27 113/64 95 Mechanical Ventilator 80 10/22/17 12:00 80 10/22/17 12:00 27 10/22/17 12:00 65 Objective: Status: eyes open, morbidly obese middle age male, intubated Condition: critical HEENT: atraumatic, normocephalic, OP with ET in place, intact, NGT Lungs: few isolated rhonchi at bases, tachypneic Heart: HR/BP stable, RUE PICC intact Abdomen: soft, obese , active bowel sounds Skin: + dry plaques knee and elbow anterior surface Extremities: + 2 edema BLE Micro: Microbiology Date/Time Source Procedure Growth Status 10/21/17 09:26 Blood Blood Culture - Preliminary NO GROWTH AFTER 24 HOURS Resulted 10/21/17 09:16 Blood Blood Culture - Preliminary NO GROWTH AFTER 24 HOURS Resulted 10/20/17 15:00 Blood Blood Culture - Preliminary NO GROWTH AFTER 48 HOURS Resulted 10/20/17 14:50 Blood Blood Culture - Preliminary NO GROWTH AFTER 48 HOURS Resulted 10/21/17 14:56 Indwelling Cath Urine Culture - Preliminary NO GROWTH AFTER 24 HOURS Resulted Accucheck: 121 Critical Care - Subjective ROS Limited/Unobtainable: Yes Interval Events: remains intubated, FiO2 down to 70% with PEEP down to 10, AC still 30 ABG this am with worsening hypercapnia significant leucocytosis, low grade fever creat down to normal Condition: critical IV Access: PICC - RUE intact EKG Rhythm: Sinus Rhythm FI02: 70 Vent Support Breath Rate: 30 Vent Support Mode: AC Vent Tidal Volume: 500 Sputum Amount: Scant PEEP: 10.0 PIP: 33 Drips: Fentanyl gtt at 16 ml/hr Tube Feeding Amount: 40 I&O: Intake and Output 10/22/17 10/23/17 19:00 07:00 Intake Total 1214.877 ml 925 ml Output Total 2300 ml 1320 ml Balance -1085.123 ml -395 ml Free Water 50 ml IV Total 734.877 ml 395 ml Tube Feeding 480 ml 480 ml Output Urine Total 2300 ml 1320 ml Stool Total 0 ml CXR: Cardiomegaly with congestive heart failure and pulmonary edema or superimposed pneumonia. Endotracheal tube with the tip at T2. ET-Tube: 7.5 ET Position: 25 Rambo GomezKalee hawk NP Oct 23, 2017 11:50
[2017-10-23] MEDS: fentaNYL Citrate 2500mcg in NS 250ml IV SCH (14:58)
[2017-10-23] MEDS ORDERED: Tubing IV Secondary IV ONE (17:03)
[2017-10-23] MEDS: Dyna-Hex 2% Top Sol 2oz TOPIC SCH (19:42)
[2017-10-23] MEDS: Albuterol/Ipratropium 3ml neb HHN PRN (20:00)
[2017-10-24] VITALS (28 sets, daily range): BP systolic 104–177; BP diastolic 60–95
[2017-10-24] MEDS: Albuterol/Ipratropium 3ml neb HHN PRN ×4 (00:56→19:04)
[2017-10-24] MEDS: Acetylcysteine 20% Soln 4ml HHN SCH ×4 (00:57→19:04)
[2017-10-24] MEDS: fentaNYL Citrate 2500mcg in NS 250ml IV SCH (01:47)
[2017-10-24] MEDS: Haloperidol Lactate 5 MG in D5W 55 ML IVPB PRN (02:15)
[2017-10-24] MEDS: Meropenem 1 GM in NS 55 ML IVPB SCH ×3 (05:05→19:48)
[2017-10-24 05:41] LABS: HEMATOCRIT 44.9 % (42.0-52.0); HEMOGLOBIN 12.5 G/DL (14.2-18.0); MEAN CORPUSCULAR VOLUME 67 FL (80-99); PLATELET COUNT 238 K/UL (150-450); RED BLOOD COUNT 6.67 M/UL (4.70-6.10); WHITE BLOOD COUNT 19.1 K/UL (4.8-10.8)
[2017-10-24] MEDS: Vancomycin 1500mg IVPB SCH (06:01)
[2017-10-24] MEDS: NovoLOG Insulin Flexpen SUBQ SCH ×4 (06:03→21:00)
[2017-10-24 06:15] LABS: ALANINE AMINOTRANSFERASE 47 U/L (12-78); ALBUMIN 2.3 G/DL (3.4-5.0); ALBUMIN/GLOBULIN RATIO 0.5 (1.0-2.7); ALKALINE PHOSPHATASE 125 U/L (46-116); ANION GAP 2 mmol/L (5-15); ASPARTATE AMINO TRANSFERASE 38 U/L (15-37); BILIRUBIN,TOTAL 0.8 MG/DL (0.2-1.0); BLOOD UREA NITROGEN 39 mg/dL (7-18); CARBON DIOXIDE 37 MMOL/L (21-32); CHLORIDE 105 MMOL/L (98-107); PHOSPHORUS 4.4 MG/DL (2.5-4.9); POTASSIUM 4.7 MMOL/L (3.5-5.1); SODIUM 144 MMOL/L (136-145)
[2017-10-24] MEDS: Solu-MEDROL 40mg Inj IVP SCH ×2 (09:06→20:25)
[2017-10-24] MEDS: Pantoprazole Inj IV SCH (09:06)
[2017-10-24] MEDS: Docusate 100mg/10ml Liq GT SCH ×2 (09:06→18:17)
[2017-10-24] MEDS: Heparin 5000 units/ml inj SUBQ SCH (09:11)
--- NOTE | 2017-10-24 09:52 | Infectious Diseases Prog Note ---
Assessment/Plan Assessment/Plan ASSESSMENT: The patient is a 42-year-old male with, Leukocytosis ( on steroids ) -stable to mildly improved 10/21 u/a neg,ucx NTD, BCx NTD Fever ( after self extubation ) improving Possible aspiration pneumonia versus community-acquired pneumonia. Scx : P mirabilis -BAL cx 10/18 neg 10/13 C-Xray worsening of infiltrate vs edema Probable scrotal cellulitis versus discoloration of genitalia due to edema. CRP 09/15 HIV , Crypt, Aspergillus ab : neg U leg Ab and Ag: neg ARDS CORA improving PICC 10/09 VDRF self extub and reintubated 10/19 Congestive heart failure. PLAN: Cont pt on Merrem d# / , Diflucan d# 8 ( Empiric for possible coccidio ) , and Vanco d# 5 10/17 sp vancomycin and Doxy d# 10 / 10/13 sp Zosyn d# 5 -REpeat sputum cx Monitor CBC/CMP Monitor cultures ( Ur, blood ) Continue vent support. Monitor chest x-ray; CXR am Coccidio and Histo :P Fungitell Subjective Allergies: Coded Allergies: No Known Allergies (Unverified , 10/06/17) Subjective afebrile in 24hrs all repeat cx NTD FIo2 increased now 90-100% leukocytosis stable to mildly improved Objective Vital Signs Last 24 Hour Vital Signs Date Time Temp Pulse Resp B/P (MAP) Pulse Ox O2 Delivery O2 Flow Rate FiO2 10/24/17 09:00 87 16 117/66 100 Venturi Mask 90 10/24/17 08:00 96 10/24/17 08:00 99.7 95 17 131/78 99 Non-Rebreather 100 10/24/17 07:29 Non-Rebreather 15.0 100 10/24/17 07:29 96 Non-Rebreather 15.0 100 10/24/17 07:29 86 22 100 Non-Rebreather 15.0 100 10/24/17 07:09 89 14 94 Mechanical Ventilator 70 10/24/17 07:00 81 16 104/71 100 Non-Rebreather 100 10/24/17 06:00 77 20 147/89 97 Non-Rebreather 100 10/24/17 05:00 75 17 146/88 97 Non-Rebreather 100 10/24/17 04:58 Non-Rebreather 15.0 100 10/24/17 04:00 98.7 88 18 149/85 96 Non-Rebreather 100 10/24/17 04:00 88 10/24/17 03:30 95 20 177/93 96 Mechanical Ventilator 70 10/24/17 03:30 96 Non-Rebreather 15.0 100 10/24/17 03:30 Non-Rebreather 15.0 100 10/24/17 03:10 71 30 70 10/24/17 03:00 71 30 139/92 97 Mechanical Ventilator 70 10/24/17 03:00 30 10/24/17 03:00 98.4 10/24/17 02:30 115 21 159/92 98 Mechanical Ventilator 70 10/24/17 02:00 25 10/24/17 02:00 108 25 138/88 93 Mechanical Ventilator 70 10/24/17 01:47 30 10/24/17 01:30 63 30 134/88 93 Mechanical Ventilator 70 10/24/17 01:20 62 30 97 Mechanical Ventilator 70 10/24/17 01:00 22 10/24/17 01:00 113 22 141/83 96 Mechanical Ventilator 70 10/24/17 00:55 114 36 96 Mechanical Ventilator 70 10/24/17 00:54 118 36 70 10/24/17 00:30 86 27 151/95 97 Mechanical Ventilator 70 10/24/17 00:00 77 10/24/17 00:00 26 10/24/17 00:00 70 10/24/17 00:00 99.6 77 26 134/76 97 Mechanical Ventilator 70 10/23/17 23:30 102 26 173/94 96 Mechanical Ventilator 70 10/23/17 23:23 77 30 70 10/23/17 23:00 85 17 135/88 98 Mechanical Ventilator 70 10/23/17 23:00 17 10/23/17 22:30 114 25 149/99 98 Mechanical Ventilator 70 10/23/17 22:00 19 10/23/17 22:00 99 19 142/95 97 Mechanical Ventilator 70 10/23/17 21:30 119 23 171/95 96 Mechanical Ventilator 70 10/23/17 21:24 112 37 70 10/23/17 21:00 79 25 132/95 95 Mechanical Ventilator 70 10/23/17 21:00 25 10/23/17 20:30 64 30 123/80 95 Mechanical Ventilator 70 10/23/17 20:00 70 10/23/17 20:00 69 10/23/17 20:00 27 10/23/17 20:00 99.2 69 27 124/74 98 Mechanical Ventilator 70 10/23/17 19:59 70 30 98 Mechanical Ventilator 70 10/23/17 19:49 68 30 97 Mechanical Ventilator 70 10/23/17 19:30 87 20 146/82 98 Mechanical Ventilator 70 10/23/17 19:29 72 30 70 10/23/17 19:00 74 28 116/73 96 Mechanical Ventilator 70 10/23/17 19:00 34 10/23/17 18:30 83 28 137/74 96 Mechanical Ventilator 70 10/23/17 18:09 34 10/23/17 18:00 95 28 135/94 96 Mechanical Ventilator 70 10/23/17 17:30 78 28 175/97 96 Mechanical Ventilator 70 10/23/17 17:11 85 30 70 10/23/17 17:00 32 10/23/17 17:00 78 28 139/92 96 Mechanical Ventilator 70 10/23/17 16:30 133 35 174/23 96 Mechanical Ventilator 70 10/23/17 16:00 70 10/23/17 16:00 30 10/23/17 16:00 78 10/23/17 16:00 98.9 68 35 137/79 96 Mechanical Ventilator 70 10/23/17 15:46 71 30 70 10/23/17 15:30 78 30 133/77 96 Mechanical Ventilator 70 10/23/17 15:00 82 30 124/74 96 Mechanical Ventilator 70 10/23/17 15:00 28 10/23/17 15:00 30 10/23/17 14:58 28 10/23/17 14:30 84 30 120/70 96 Mechanical Ventilator 70 10/23/17 14:00 89 24 126/65 96 Mechanical Ventilator 70 10/23/17 14:00 30 10/23/17 13:44 74 0 95 Mechanical Ventilator 70 10/23/17 13:30 97 24 145/65 94 Mechanical Ventilator 70 10/23/17 13:00 26 10/23/17 13:00 113 24 128/76 94 Mechanical Ventilator 70 10/23/17 12:49 91 30 97 Mechanical Ventilator 70 10/23/17 12:48 91 27 70 10/23/17 12:45 99 27 70 12/26/17 12:30 78 30 135/76 95 Mechanical Ventilator 70 10/23/17 12:00 25 10/23/17 12:00 98.9 87 25 122/77 94 Mechanical Ventilator 70 10/23/17 12:00 74 10/23/17 12:00 70 10/23/17 11:46 86 27 70 10/23/17 11:30 91 25 116/78 94 Mechanical Ventilator 70 10/23/17 11:00 94 25 117/69 94 Mechanical Ventilator 70 10/23/17 11:00 24 10/23/17 10:30 69 24 103/55 95 Mechanical Ventilator 70 10/23/17 10:00 82 24 104/58 95 Mechanical Ventilator 70 10/23/17 10:00 24 Height (Feet): 5 Height (Inches): 4.00 Weight (Pounds): 356 Objective Status: sedated Condition: critical HEENT: atraumatic, normocephalic, other - ETT, R NGT Lungs: rhonchi - scattered anterior Heart: RRR Abdomen: soft, non-tender, active bowel sounds Extremities: no C/C/E Genitalia:Scrotal edema, erythema and warmth slightly improved Microbiology Date/Time Source Procedure Growth Status 10/21/17 14:56 Indwelling Cath Urine Culture - Final NO GROWTH AFTER 48 HOURS Complete Laboratory Tests Test 10/24/17 04:00 10/24/17 05:00 10/24/17 07:55 Arterial Blood pH 7.373 (7.350-7.450) 7.370 (7.350-7.450) Arterial Blood Partial Pressure CO2 65.1 mmHg (35.0-45.0) *H 55.2 mmHg (35.0-45.0) *H Arterial Blood Partial Pressure O2 85.3 mmHg (75.0-100.0) 141.7 mmHg (75.0-100.0) H Arterial Blood HCO3 37.5 mmol/L (22.0-26.0) H 31.3 mmol/L (22.0-26.0) H Arterial Blood Oxygen Saturation 95.8 % (92.0-98.0) 98.4 % (92.0-98.0) H Arterial Blood Base Excess 9.7 4.6 Naif Test Positive Positive White Blood Count 19.1 K/UL (4.8-10.8) H Red Blood Count 6.67 M/UL (4.70-6.10) H Hemoglobin 12.5 G/DL (14.2-18.0) L Hematocrit 44.9 % (42.0-52.0) Mean Corpuscular Volume 67 FL (80-99) L Mean Corpuscular Hemoglobin 18.7 PG (27.0-31.0) L Mean Corpuscular Hemoglobin Concent 27.8 G/DL (32.0-36.0) L Red Cell Distribution Width 22.0 % (11.6-14.8) H Platelet Count 238 K/UL (150-450) Mean Platelet Volume 9.9 FL (6.5-10.1) Neutrophils (%) (Auto) % (45.0-75.0) Lymphocytes (%) (Auto) % (20.0-45.0) Monocytes (%) (Auto) % (1.0-10.0) Eosinophils (%) (Auto) % (0.0-3.0) Basophils (%) (Auto) % (0.0-2.0) Differential Total Cells Counted 100 Neutrophils % (Manual) 95 % (45-75) H Lymphocytes % (Manual) 2 % (20-45) L Monocytes % (Manual) 3 % (1-10) Eosinophils % (Manual) 0 % (0-3) Basophils % (Manual) 0 % (0-2) Band Neutrophils 0 % (0-8) Platelet Estimate Adequate Platelet Morphology Normal Hypochromasia 1+ Anisocytosis 2+ Microcytosis 2+ Sodium Level 144 MMOL/L (136-145) Potassium Level 4.7 MMOL/L (3.5-5.1) Chloride Level 105 MMOL/L (98-107) Carbon Dioxide Level 37 MMOL/L (21-32) H Anion Gap 2 mmol/L (5-15) L Blood Urea Nitrogen 39 mg/dL (7-18) H Creatinine 1.0 MG/DL (0.55-1.30) Estimat Glomerular Filtration Rate > 60 mL/min (>60) Glucose Level 135 MG/DL (74-106) H Calcium Level 8.0 MG/DL (8.5-10.1) L Phosphorus Level 4.4 MG/DL (2.5-4.9) Magnesium Level 2.1 MG/DL (1.8-2.4) Total Bilirubin 0.8 MG/DL (0.2-1.0) Aspartate Amino Transf (AST/SGOT) 38 U/L (15-37) H Alanine Aminotransferase (ALT/SGPT) 47 U/L (12-78) Alkaline Phosphatase 125 U/L (46-116) H C-Reactive Protein, Quantitative 4.3 mg/dL (0.00-0.90) H Pro-B-Type Natriuretic Peptide 1775 pg/mL (0-125) H Total Protein 6.7 G/DL (6.4-8.2) Albumin 2.3 G/DL (3.4-5.0) L Globulin 4.4 g/dL Albumin/Globulin Ratio 0.5 (1.0-2.7) L Current Medications Medications (Trade) Dose Ordered Sig/Prince Route PRN Reason Start Time Stop Time Status Last Admin Dose Admin Acetaminophen (Tylenol) 650 mg EVERY 4 HOURS PRN NG Mild Pain/Temp > 100.5 10/09/17 10:15 11/08/17 10:14 10/20/17 23:58 Acetylcysteine (Mucomyst) 200 mg Q6HRT HHN 10/15/17 13:00 11/14/17 12:59 10/24/17 07:08 Albuterol/ Ipratropium (Albuterol/ Ipratropium) 3 ml Q4H PRN HHN Shortness of Breath 10/23/17 12:00 10/28/17 11:59 10/24/17 07:08 Chlorhexidine Gluconate (Sol-Hex 2%) 1 applic DAILY@2000 TOPIC 10/09/17 20:00 11/08/17 19:59 10/23/17 19:42 Dextrose (Dextrose 50%) STAT PRN IV Hypoglycemia 10/12/17 11:00 11/11/17 10:59 Docusate Sodium (Colace) 100 mg BID GT 10/13/17 17:00 11/12/17 16:59 10/24/17 09:06 Fentanyl Citrate 2500 mcg/Sodium Chloride 250 ml @ 0 mls/hr Q24H IV 10/20/17 15:30 10/27/17 15:29 10/24/17 01:47 Fluconazole/ Sodium Chloride 200 ml @ 100 mls/hr Q24H IV 10/17/17 12:00 10/24/17 11:59 10/23/17 11:18 Haloperidol Lactate 5 mg/ Dextrose 56 ml @ 224 mls/hr Q1H PRN IVPB BREAKTHROUGH AGITATION 10/08/17 17:00 11/07/17 16:59 10/24/17 02:15 Heparin Sodium (Porcine) (Heparin 5000 units/ml) 5,000 units DAILY SUBQ 10/08/17 11:00 11/07/17 10:59 10/24/17 09:11 Insulin Aspart (NovoLOG) BEFORE MEALS AND HS SUBQ 10/12/17 11:30 11/11/17 11:29 10/24/17 06:03 Magnesium Hydroxide (Mom) 30 ml DAILYPRN PRN GT Constipation 10/13/17 16:30 11/12/17 16:29 10/21/17 20:44 Meropenem 1 gm/ Sodium Chloride 55 ml @ 110 mls/hr Q8HR@0200,1200,2000 IVPB 10/20/17 12:00 10/24/17 05:05 Methylprednisolone Sodium Succinate (Solu-MEDROL) 20 mg Q12HR IVP 10/22/17 21:00 11/21/17 20:59 10/24/17 09:06 Pantoprazole (Protonix) 40 mg DAILY IV 10/07/17 11:00 11/06/17 10:59 10/24/17 09:06 Vancomycin HCl (Vanco rx to dose) 1 ea DAILY PRN MISC Per rx protocol 10/20/17 11:15 11/19/17 11:14 Vancomycin HCl/ Dextrose 250 ml @ 125 mls/hr Q12HR@0600,1800 IVPB 10/23/17 06:00 10/28/17 05:59 10/24/17 06:01 Evelin Lam M.D. Oct 24, 2017 09:52
--- NOTE | 2017-10-24 11:01 | Pulmonolgy Critical Care Note ---
Critical Care - Asmt/Plan Assessment/Plan: ASSESSMENT Acute hypercapnic RF requiring intubation s/p self extubation likely aspiration PNA with Proteus acute pulmonary edema ARDS likely obesity hyperventilation syndrome with chronic hypercapnia, severely exacerbated by ARDS Likely scrotal cellulitis Anasarca Urinary retention-relieved ARF likely ATN -resolved hypernatremia-improved Thrombocytopenia psoriasis morbid obesity new onset of diabetes PLAN OF CARE ICU O2 via NRM pulmonary toilet daily CXR and ABG continue steroids with very slow tapering surgery consult for trach placement discussed with dr Steinberg will prefer trach before transferring to [facility] for ECMO mother was prior in agreement with tarch abx ID follows sputum cx + Proteus, repeated sputum cx + Proteus; urine cx negative, blood cx negative last CXR 10/22 with probable new infiltrate ( + leuk, + low grade fever) s/p bronch 10/18 with evidence of ARDS, extensive airway inflammation, but no active alveolar bleeding bronchial washing cx negative nephro follows creat down to normal s/p IVF no further IVF, spot diuresis prn monitor renal parameters, lytes, correct as need, avoid nephrotoxic prior: renal US with 1500cc urinary retention Carrington placed by urologist scrotal US results pending elevate scrotum Venous Duplex BLE negative ECHO with grossly preserved EF, normal wall motion to the extent visualized Pain management DVT/GI prophylaxis Monitor counts [id number] new onset of DM BS management , started on a sensitive SSI prn strict aspiration precautions, NGT feeding discussed with mother at the bedside in detail about poor prognosis and seriousness of condition on 10/12 mother had further discussion with PMD and dr Steinberg, initially decided on terminal care but later changed her mind to full code overall prognosis grave will need trach and PEG if recovers from ARDS( slim chances) need transfer to a higher level of care, will likely benefic from ECMO unable to transfer to [facility] due to insurance issues on a waiting list to [facility] case discussed and evaluated by supervising physician Critical Care - Objective Last 24 Hour Vital Signs Date Time Temp Pulse Resp B/P (MAP) Pulse Ox O2 Delivery O2 Flow Rate FiO2 10/24/17 10:00 83 20 137/76 92 T-piece 60 10/24/17 09:00 87 16 117/66 90 Venturi Mask 50 10/24/17 08:00 96 10/24/17 08:00 99.7 95 17 131/78 99 Non-Rebreather 100 10/24/17 07:29 Non-Rebreather 15.0 100 10/24/17 07:29 96 Non-Rebreather 15.0 100 10/24/17 07:29 86 22 100 Non-Rebreather 15.0 100 10/24/17 07:09 89 14 94 Mechanical Ventilator 70 10/24/17 07:00 81 16 104/71 100 Non-Rebreather 100 10/24/17 06:00 77 20 147/89 97 Non-Rebreather 100 10/24/17 05:00 75 17 146/88 97 Non-Rebreather 100 10/24/17 04:58 Non-Rebreather 15.0 100 10/24/17 04:00 98.7 88 18 149/85 96 Non-Rebreather 100 10/24/17 04:00 88 10/24/17 03:30 95 20 177/93 96 Mechanical Ventilator 70 10/24/17 03:30 96 Non-Rebreather 15.0 100 10/24/17 03:30 Non-Rebreather 15.0 100 10/24/17 03:10 71 30 70 10/24/17 03:00 71 30 139/92 97 Mechanical Ventilator 70 10/24/17 03:00 30 10/24/17 03:00 98.4 10/24/17 02:30 115 21 159/92 98 Mechanical Ventilator 70 10/24/17 02:00 25 10/24/17 02:00 108 25 138/88 93 Mechanical Ventilator 70 10/24/17 01:47 30 10/24/17 01:30 63 30 134/88 93 Mechanical Ventilator 70 10/24/17 01:20 62 30 97 Mechanical Ventilator 70 10/24/17 01:00 22 10/24/17 01:00 113 22 141/83 96 Mechanical Ventilator 70 10/24/17 00:55 114 36 96 Mechanical Ventilator 70 10/24/17 00:54 118 36 70 10/24/17 00:30 86 27 151/95 97 Mechanical Ventilator 70 10/24/17 00:00 77 10/24/17 00:00 26 10/24/17 00:00 70 10/24/17 00:00 99.6 77 26 134/76 97 Mechanical Ventilator 70 10/23/17 23:30 102 26 173/94 96 Mechanical Ventilator 70 10/23/17 23:23 77 30 70 10/23/17 23:00 85 17 135/88 98 Mechanical Ventilator 70 10/23/17 23:00 17 10/23/17 22:30 114 25 149/99 98 Mechanical Ventilator 70 10/23/17 22:00 19 10/23/17 22:00 99 19 142/95 97 Mechanical Ventilator 70 10/23/17 21:30 119 23 171/95 96 Mechanical Ventilator 70 10/23/17 21:24 112 37 70 10/23/17 21:00 79 25 132/95 95 Mechanical Ventilator 70 10/23/17 21:00 25 10/23/17 20:30 64 30 123/80 95 Mechanical Ventilator 70 10/23/17 20:00 70 10/23/17 20:00 69 10/23/17 20:00 27 10/23/17 20:00 99.2 69 27 124/74 98 Mechanical Ventilator 70 10/23/17 19:59 70 30 98 Mechanical Ventilator 70 10/23/17 19:49 68 30 97 Mechanical Ventilator 70 10/23/17 19:30 87 20 146/82 98 Mechanical Ventilator 70 10/23/17 19:29 72 30 70 10/23/17 19:00 74 28 116/73 96 Mechanical Ventilator 70 10/23/17 19:00 34 10/23/17 18:30 83 28 137/74 96 Mechanical Ventilator 70 10/23/17 18:09 34 10/23/17 18:00 95 28 135/94 96 Mechanical Ventilator 70 10/23/17 17:30 78 28 175/97 96 Mechanical Ventilator 70 10/23/17 17:11 85 30 70 10/23/17 17:00 32 10/23/17 17:00 78 28 139/92 96 Mechanical Ventilator 70 10/23/17 16:30 133 35 174/23 96 Mechanical Ventilator 70 10/23/17 16:00 70 10/23/17 16:00 30 10/23/17 16:00 78 10/23/17 16:00 98.9 68 35 137/79 96 Mechanical Ventilator 70 10/23/17 15:46 71 30 70 10/23/17 15:30 78 30 133/77 96 Mechanical Ventilator 70 10/23/17 15:00 82 30 124/74 96 Mechanical Ventilator 70 10/23/17 15:00 28 10/23/17 15:00 30 10/23/17 14:58 28 10/23/17 14:30 84 30 120/70 96 Mechanical Ventilator 70 10/23/17 14:00 89 24 126/65 96 Mechanical Ventilator 70 10/23/17 14:00 30 10/23/17 13:44 74 0 95 Mechanical Ventilator 70 10/23/17 13:30 97 24 145/65 94 Mechanical Ventilator 70 10/23/17 13:00 26 10/23/17 13:00 113 24 128/76 94 Mechanical Ventilator 70 10/23/17 12:49 91 30 97 Mechanical Ventilator 70 10/23/17 12:48 91 27 70 10/23/17 12:45 99 27 70 10/23/17 12:30 78 30 135/76 95 Mechanical Ventilator 70 10/23/17 12:00 25 10/23/17 12:00 98.9 87 25 122/77 94 Mechanical Ventilator 70 10/23/17 12:00 74 10/23/17 12:00 70 10/23/17 11:46 86 27 70 10/23/17 11:30 91 25 116/78 94 Mechanical Ventilator 70 10/23/17 11:00 94 25 117/69 94 Mechanical Ventilator 70 10/23/17 11:00 24 Objective: Status: eyes open, morbidly obese middle age male, Condition: critical HEENT: atraumatic, normocephalic, 100% NRM, NGT with TF Lungs: few isolated rhonchi at bases, Heart: HR/BP stable, RUE PICC intact Abdomen: soft, obese , active bowel sounds Skin: + dry plaques knee and elbow anterior surface Extremities: + 2 edema BLE Micro: Microbiology Date/Time Source Procedure Growth Status 10/21/17 14:56 Indwelling Cath Urine Culture - Final NO GROWTH AFTER 48 HOURS Complete Accucheck: 122 Critical Care - Subjective ROS Limited/Unobtainable: Yes Interval Events: self extubated himself last night on 100% NRM ABG with hypercapnia leukocytosis persists with low grade fever Condition: critical IV Access: PICC FI02: 60 Vent Support Breath Rate: 30 Vent Support Mode: AC Vent Tidal Volume: 500 Sputum Amount: Small PEEP: 10.0 PIP: 31 Drips: Fentanyl 20 ml/hr Tube Feeding Amount: 40 I&O: Intake and Output 10/23/17 10/24/17 19:00 07:00 Intake Total 1298 ml 935 ml Output Total 2100 ml 1670 ml Balance -802 ml -735 ml Free Water 50 ml 80 ml IV Total 768 ml 535 ml Tube Feeding 480 ml 320 ml Output Urine Total 2100 ml 1670 ml Stool Total 0 ml ET-Tube: 7.5 ET Position: 25 [place] [facility] Oct 24, 2017 11:01
--- NOTE | 2017-10-24 12:23 | Diagnostic Imaging Report ---
Indication: Dyspnea Comparison: 10/22/2017 A single view chest radiograph was obtained. Findings: Interstitial edema again demonstrated. Cardiomegaly is stable. PICC line is stable. Patient has been extubated. IMPRESSION: Postextubation. Moderate interstitial edema
--- NOTE | 2017-10-24 15:37 | Consultation ---
History of Present Illness General Date patient seen: Oct 24, 2017 Chief Complaint: Male Urogenital Problems Reason for Consultation: respiratory insufficiency; considerations for trac Present Illness HPI 42 year old male currently in ICU who presented with scrotal cellulitis with sepsis. Required intensive unit care for some time now. During admission noted to have aspiration pneumonia, ARDS, CORA, respiratory insufficiency. Has required intubation prior emergently. Recently self extubated. Respiratory status concerning and given this surgery was consulted to evaluate for possible tracheostomy. Allergies: Coded Allergies: No Known Allergies (Unverified , 10/06/17) Medication History Scheduled No Known Medications* (NKM - No Known Medications*), 0 ., (Reported) Patient History History Provided By: Medical Record, PMD Healthcare decision maker Resuscitation status Full Code Advanced Directive on File Past Medical/Surgical History Past Medical/Surgical History: (1) Respiratory distress (2) Pulmonary edema (3) Anasarca (4) scotal cellutis (5) Acute respiratory failure (6) Acute renal failure (7) ARDS (adult respiratory distress syndrome) (8) Cellulitis of scrotum (9) Sinus bradycardia Review of Systems All Other Systems: negative except mentioned in HPI Physical Exam General Appearance: alert, mild distress Lines, tubes and drains: central line HEENT: mucous membranes moist Neck: normal inspection Respiratory/Chest: normal breath sounds, decreased breath sounds, expiratory wheezing Cardiovascular/Chest: normal peripheral pulses Abdomen: normal bowel sounds, non tender, soft, no organomegaly, no mass, other - reducible umbilical hernia Extremities: normal inspection Skin Exam: warm/dry Neurologic: alert, oriented x 3, responsive Last 24 Hour Vital Signs Date Time Temp Pulse Resp B/P (MAP) Pulse Ox O2 Delivery O2 Flow Rate FiO2 10/24/17 15:00 86 19 117/70 97 T-piece 60 10/24/17 14:00 81 20 121/68 93 T-piece 60 10/24/17 13:05 89 27 96 T-piece 60 10/24/17 13:00 76 17 123/76 93 T-piece 60 10/24/17 12:57 93 29 92 Mechanical Ventilator 60 10/24/17 12:00 78 10/24/17 12:00 98.8 82 22 132/76 96 T-piece 60 10/24/17 11:00 71 21 107/60 95 T-piece 60 10/24/17 10:00 83 20 137/76 92 T-piece 60 10/24/17 09:00 87 16 117/66 90 Venturi Mask 50 10/24/17 08:00 96 10/24/17 08:00 99.7 95 17 131/78 99 Non-Rebreather 100 10/24/17 07:29 Non-Rebreather 15.0 100 10/24/17 07:29 96 Non-Rebreather 15.0 100 10/24/17 07:29 86 22 100 Non-Rebreather 15.0 100 10/24/17 07:09 89 14 94 Mechanical Ventilator 70 10/24/17 07:00 81 16 104/71 100 Non-Rebreather 100 10/24/17 06:00 77 20 147/89 97 Non-Rebreather 100 10/24/17 05:00 75 17 146/88 97 Non-Rebreather 100 10/24/17 04:58 Non-Rebreather 15.0 100 10/24/17 04:00 98.7 88 18 149/85 96 Non-Rebreather 100 10/24/17 04:00 88 10/24/17 03:30 95 20 177/93 96 Mechanical Ventilator 70 10/24/17 03:30 96 Non-Rebreather 15.0 100 10/24/17 03:30 Non-Rebreather 15.0 100 10/24/17 03:10 71 30 70 10/24/17 03:00 71 30 139/92 97 Mechanical Ventilator 70 10/24/17 03:00 30 10/24/17 03:00 98.4 10/24/17 02:30 115 21 159/92 98 Mechanical Ventilator 70 10/24/17 02:00 25 10/24/17 02:00 108 25 138/88 93 Mechanical Ventilator 70 10/24/17 01:47 30 10/24/17 01:30 63 30 134/88 93 Mechanical Ventilator 70 10/24/17 01:20 62 30 97 Mechanical Ventilator 70 10/24/17 01:00 22 10/24/17 01:00 113 22 141/83 96 Mechanical Ventilator 70 10/24/17 00:55 114 36 96 Mechanical Ventilator 70 10/24/17 00:54 118 36 70 10/24/17 00:30 86 27 151/95 97 Mechanical Ventilator 70 10/24/17 00:00 77 10/24/17 00:00 26 10/24/17 00:00 70 10/24/17 00:00 99.6 77 26 134/76 97 Mechanical Ventilator 70 10/23/17 23:30 102 26 173/94 96 Mechanical Ventilator 70 10/23/17 23:23 77 30 70 10/23/17 23:00 85 17 135/88 98 Mechanical Ventilator 70 10/23/17 23:00 17 10/23/17 22:30 114 25 149/99 98 Mechanical Ventilator 70 10/23/17 22:00 19 10/23/17 22:00 99 19 142/95 97 Mechanical Ventilator 70 10/23/17 21:30 119 23 171/95 96 Mechanical Ventilator 70 10/23/17 21:24 112 37 70 10/23/17 21:00 79 25 132/95 95 Mechanical Ventilator 70 10/23/17 21:00 25 10/23/17 20:30 64 30 123/80 95 Mechanical Ventilator 70 10/23/17 20:00 70 10/23/17 20:00 69 10/23/17 20:00 27 10/23/17 20:00 99.2 69 27 124/74 98 Mechanical Ventilator 70 10/23/17 19:59 70 30 98 Mechanical Ventilator 70 10/23/17 19:49 68 30 97 Mechanical Ventilator 70 10/23/17 19:30 87 20 146/82 98 Mechanical Ventilator 70 10/23/17 19:29 72 30 70 10/23/17 19:00 74 28 116/73 96 Mechanical Ventilator 70 10/23/17 19:00 34 10/23/17 18:30 83 28 137/74 96 Mechanical Ventilator 70 10/23/17 18:09 34 10/23/17 18:00 95 28 135/94 96 Mechanical Ventilator 70 10/23/17 17:30 78 28 175/97 96 Mechanical Ventilator 70 10/23/17 17:11 85 30 70 10/23/17 17:00 32 10/23/17 17:00 78 28 139/92 96 Mechanical Ventilator 70 10/23/17 16:30 133 35 174/23 96 Mechanical Ventilator 70 10/23/17 16:00 70 10/23/17 16:00 30 10/23/17 16:00 78 10/23/17 16:00 98.9 68 35 137/79 96 Mechanical Ventilator 70 10/23/17 15:46 71 30 70 10/23/17 15:30 78 30 133/77 96 Mechanical Ventilator 70 Intake and Output 10/23/17 10/24/17 19:00 07:00 Intake Total 1298 ml 935 ml Output Total 2100 ml 1670 ml Balance -802 ml -735 ml Free Water 50 ml 80 ml IV Total 768 ml 535 ml Tube Feeding 480 ml 320 ml Output Urine Total 2100 ml 1670 ml Stool Total 0 ml Laboratory Tests Test 10/24/17 04:00 10/24/17 05:00 10/24/17 07:55 Arterial Blood pH 7.373 (7.350-7.450) 7.370 (7.350-7.450) Arterial Blood Partial Pressure CO2 65.1 mmHg (35.0-45.0) *H 55.2 mmHg (35.0-45.0) *H Arterial Blood Partial Pressure O2 85.3 mmHg (75.0-100.0) 141.7 mmHg (75.0-100.0) H Arterial Blood HCO3 37.5 mmol/L (22.0-26.0) H 31.3 mmol/L (22.0-26.0) H Arterial Blood Oxygen Saturation 95.8 % (92.0-98.0) 98.4 % (92.0-98.0) H Arterial Blood Base Excess 9.7 4.6 Naif Test Positive Positive White Blood Count 19.1 K/UL (4.8-10.8) H Red Blood Count 6.67 M/UL (4.70-6.10) H Hemoglobin 12.5 G/DL (14.2-18.0) L Hematocrit 44.9 % (42.0-52.0) Mean Corpuscular Volume 67 FL (80-99) L Mean Corpuscular Hemoglobin 18.7 PG (27.0-31.0) L Mean Corpuscular Hemoglobin Concent 27.8 G/DL (32.0-36.0) L Red Cell Distribution Width 22.0 % (11.6-14.8) H Platelet Count 238 K/UL (150-450) Mean Platelet Volume 9.9 FL (6.5-10.1) Neutrophils (%) (Auto) % (45.0-75.0) Lymphocytes (%) (Auto) % (20.0-45.0) Monocytes (%) (Auto) % (1.0-10.0) Eosinophils (%) (Auto) % (0.0-3.0) Basophils (%) (Auto) % (0.0-2.0) Differential Total Cells Counted 100 Neutrophils % (Manual) 95 % (45-75) H Lymphocytes % (Manual) 2 % (20-45) L Monocytes % (Manual) 3 % (1-10) Eosinophils % (Manual) 0 % (0-3) Basophils % (Manual) 0 % (0-2) Band Neutrophils 0 % (0-8) Platelet Estimate Adequate Platelet Morphology Normal Hypochromasia 1+ Anisocytosis 2+ Microcytosis 2+ Sodium Level 144 MMOL/L (136-145) Potassium Level 4.7 MMOL/L (3.5-5.1) Chloride Level 105 MMOL/L (98-107) Carbon Dioxide Level 37 MMOL/L (21-32) H Anion Gap 2 mmol/L (5-15) L Blood Urea Nitrogen 39 mg/dL (7-18) H Creatinine 1.0 MG/DL (0.55-1.30) Estimat Glomerular Filtration Rate > 60 mL/min (>60) Glucose Level 135 MG/DL (74-106) H Calcium Level 8.0 MG/DL (8.5-10.1) L Phosphorus Level 4.4 MG/DL (2.5-4.9) Magnesium Level 2.1 MG/DL (1.8-2.4) Total Bilirubin 0.8 MG/DL (0.2-1.0) Aspartate Amino Transf (AST/SGOT) 38 U/L (15-37) H Alanine Aminotransferase (ALT/SGPT) 47 U/L (12-78) Alkaline Phosphatase 125 U/L (46-116) H C-Reactive Protein, Quantitative 4.3 mg/dL (0.00-0.90) H Pro-B-Type Natriuretic Peptide 1775 pg/mL (0-125) H Total Protein 6.7 G/DL (6.4-8.2) Albumin 2.3 G/DL (3.4-5.0) L Globulin 4.4 g/dL Albumin/Globulin Ratio 0.5 (1.0-2.7) L Height (Feet): 5 Height (Inches): 4.00 Weight (Pounds): 356 Medications Current Medications Medications (Trade) Dose Ordered Sig/Prince Route PRN Reason Start Time Stop Time Status Last Admin Dose Admin Acetaminophen (Tylenol) 650 mg EVERY 4 HOURS PRN NG Mild Pain/Temp > 100.5 10/09/17 10:15 11/08/17 10:14 10/20/17 23:58 Acetylcysteine (Mucomyst) 200 mg Q6HRT HHN 10/15/17 13:00 11/14/17 12:59 10/24/17 12:53 Albuterol/ Ipratropium (Albuterol/ Ipratropium) 3 ml Q4H PRN HHN Shortness of Breath 10/23/17 12:00 10/28/17 11:59 10/24/17 12:53 Chlorhexidine Gluconate (Sol-Hex 2%) 1 applic DAILY@2000 TOPIC 10/09/17 20:00 11/08/17 19:59 10/23/17 19:42 Dextrose (Dextrose 50%) STAT PRN IV Hypoglycemia 10/12/17 11:00 11/11/17 10:59 Docusate Sodium (Colace) 100 mg BID GT 10/13/17 17:00 11/12/17 16:59 10/24/17 09:06 Fentanyl Citrate 2500 mcg/Sodium Chloride 250 ml @ 0 mls/hr Q24H IV 10/20/17 15:30 10/27/17 15:29 10/24/17 01:47 Haloperidol Lactate 5 mg/ Dextrose 56 ml @ 224 mls/hr Q1H PRN IVPB BREAKTHROUGH AGITATION 10/08/17 17:00 11/07/17 16:59 10/24/17 02:15 Heparin Sodium (Porcine) (Heparin 5000 units/ml) 5,000 units DAILY SUBQ 10/08/17 11:00 11/07/17 10:59 10/24/17 09:11 Insulin Aspart (NovoLOG) BEFORE MEALS AND HS SUBQ 10/12/17 11:30 11/11/17 11:29 10/24/17 06:03 Magnesium Hydroxide (Mom) 30 ml DAILYPRN PRN GT Constipation 10/13/17 16:30 11/12/17 16:29 10/21/17 20:44 Meropenem 1 gm/ Sodium Chloride 55 ml @ 110 mls/hr Q8HR@0200,1200,2000 IVPB 10/20/17 12:00 10/24/17 11:04 Methylprednisolone Sodium Succinate (Solu-MEDROL) 20 mg Q12HR IVP 10/22/17 21:00 11/21/17 20:59 10/24/17 09:06 Pantoprazole (Protonix) 40 mg DAILY IV 10/07/17 11:00 11/06/17 10:59 10/24/17 09:06 Vancomycin HCl (Vanco rx to dose) 1 ea DAILY PRN MISC Per rx protocol 10/20/17 11:15 11/19/17 11:14 Vancomycin HCl/ Dextrose 250 ml @ 125 mls/hr Q12HR@0600,1800 IVPB 10/23/17 06:00 10/28/17 05:59 10/24/17 06:01 Assessment/Plan Problem List: (1) Respiratory distress ICD Codes: R06.03 - Acute respiratory distress SNOMED: 586719352 (2) Acute respiratory failure ICD Codes: J96.00 - Acute respiratory failure, unspecified whether with hypoxia or hypercapnia SNOMED: 56705514 Status: stable Assessment/Plan 42M with multiple medical comorbidities currently admitted and under ICU care. Has had respiratory failure and required intubation prior. 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 When talking with patient he seems comfortable but he does not always have good oxygen saturation. ABG okay but does retain CO2. Given recent self extubation can monitor him for a bit to see how he does. He may do well but very possible that his respiratory status will decline again. Would recommend intubation if respiratory status declines. if requires re-intubation will likely need trach. will follow for now with recs monitor respiratory status. thank you for this consult. Rebel Rios Oct 24, 2017 15:37
--- NOTE | 2017-10-24 16:07 | Nephrology Progress Note ---
Assessment/Plan Problem List: (1) Acute respiratory failure Assessment: self extubated 10/24 (2) Acute renal failure Assessment: with previous urinary out let obstruction Assessment Cr stable- s/p Acute renal failure- Cr WNL Acute Respiratory distress , ? aspiration pneumonia, intubated ARDS Acute Pulmonary edema Anasarca scotal cellutis Morbid obesity. Thrombocytopenia. Abnormal blood sugar. Anemia. Plan Plan: per consultants K and Mag supplement as needed Keep BP in check pulm support avoid nephrotoxics monitor renal parameters per consultants / pulmonary per orders Left ventricular ejection fraction estimated to be grossly normal. Mild left ventricular hypertrophy. Subjective ROS Limited/Unobtainable: No Constitutional: Reports: malaise Objective Objective Last 24 Hour Vital Signs Date Time Temp Pulse Resp B/P (MAP) Pulse Ox O2 Delivery O2 Flow Rate FiO2 10/24/17 16:00 99.7 86 20 127/71 94 T-piece 60 10/24/17 15:00 86 19 117/70 97 T-piece 60 10/24/17 14:00 81 20 121/68 93 T-piece 60 10/24/17 13:05 89 27 96 T-piece 60 10/24/17 13:00 76 17 123/76 93 T-piece 60 10/24/17 12:57 93 29 92 Mechanical Ventilator 60 10/24/17 12:00 78 10/24/17 12:00 98.8 82 22 132/76 96 T-piece 60 10/24/17 11:00 71 21 107/60 95 T-piece 60 10/24/17 10:00 83 20 137/76 92 T-piece 60 10/24/17 09:00 87 16 117/66 90 Venturi Mask 50 10/24/17 08:00 96 10/24/17 08:00 99.7 95 17 131/78 99 Non-Rebreather 100 10/24/17 07:29 Non-Rebreather 15.0 100 10/24/17 07:29 96 Non-Rebreather 15.0 100 10/24/17 07:29 86 22 100 Non-Rebreather 15.0 100 10/24/17 07:09 89 14 94 Mechanical Ventilator 70 10/24/17 07:00 81 16 104/71 100 Non-Rebreather 100 10/24/17 06:00 77 20 147/89 97 Non-Rebreather 100 10/24/17 05:00 75 17 146/88 97 Non-Rebreather 100 10/24/17 04:58 Non-Rebreather 15.0 100 10/24/17 04:00 98.7 88 18 149/85 96 Non-Rebreather 100 10/24/17 04:00 88 10/24/17 03:30 95 20 177/93 96 Mechanical Ventilator 70 10/24/17 03:30 96 Non-Rebreather 15.0 100 10/24/17 03:30 Non-Rebreather 15.0 100 10/24/17 03:10 71 30 70 10/24/17 03:00 71 30 139/92 97 Mechanical Ventilator 70 10/24/17 03:00 30 10/24/17 03:00 98.4 10/24/17 02:30 115 21 159/92 98 Mechanical Ventilator 70 10/24/17 02:00 25 10/24/17 02:00 108 25 138/88 93 Mechanical Ventilator 70 10/24/17 01:47 30 10/24/17 01:30 63 30 134/88 93 Mechanical Ventilator 70 10/24/17 01:20 62 30 97 Mechanical Ventilator 70 10/24/17 01:00 22 10/24/17 01:00 113 22 141/83 96 Mechanical Ventilator 70 10/24/17 00:55 114 36 96 Mechanical Ventilator 70 10/24/17 00:54 118 36 70 10/24/17 00:30 86 27 151/95 97 Mechanical Ventilator 70 10/24/17 00:00 77 10/24/17 00:00 26 10/24/17 00:00 70 10/24/17 00:00 99.6 77 26 134/76 97 Mechanical Ventilator 70 10/23/17 23:30 102 26 173/94 96 Mechanical Ventilator 70 10/23/17 23:23 77 30 70 10/23/17 23:00 85 17 135/88 98 Mechanical Ventilator 70 10/23/17 23:00 17 10/23/17 22:30 114 25 149/99 98 Mechanical Ventilator 70 10/23/17 22:00 19 10/23/17 22:00 99 19 142/95 97 Mechanical Ventilator 70 10/23/17 21:30 119 23 171/95 96 Mechanical Ventilator 70 10/23/17 21:24 112 37 70 10/23/17 21:00 79 25 132/95 95 Mechanical Ventilator 70 10/23/17 21:00 25 10/23/17 20:30 64 30 123/80 95 Mechanical Ventilator 70 10/23/17 20:00 70 10/23/17 20:00 69 10/23/17 20:00 27 10/23/17 20:00 99.2 69 27 124/74 98 Mechanical Ventilator 70 10/23/17 19:59 70 30 98 Mechanical Ventilator 70 10/23/17 19:49 68 30 97 Mechanical Ventilator 70 10/23/17 19:30 87 20 146/82 98 Mechanical Ventilator 70 10/23/17 19:29 72 30 70 10/23/17 19:00 74 28 116/73 96 Mechanical Ventilator 70 10/23/17 19:00 34 10/23/17 18:30 83 28 137/74 96 Mechanical Ventilator 70 10/23/17 18:09 34 10/23/17 18:00 95 28 135/94 96 Mechanical Ventilator 70 10/23/17 17:30 78 28 175/97 96 Mechanical Ventilator 70 10/23/17 17:11 85 30 70 10/23/17 17:00 32 10/23/17 17:00 78 28 139/92 96 Mechanical Ventilator 70 10/23/17 16:30 133 35 174/23 96 Mechanical Ventilator 70 Intake and Output 10/23/17 10/24/17 19:00 07:00 Intake Total 1298 ml 935 ml Output Total 2100 ml 1670 ml Balance -802 ml -735 ml Free Water 50 ml 80 ml IV Total 768 ml 535 ml Tube Feeding 480 ml 320 ml Output Urine Total 2100 ml 1670 ml Stool Total 0 ml Laboratory Tests 10/24/17 04:00: Arterial Blood pH 7.373, Arterial Blood Partial Pressure CO2 65.1*H, Arterial Blood Partial Pressure O2 85.3, Arterial Blood HCO3 37.5H, Arterial Blood Oxygen Saturation 95.8, Arterial Blood Base Excess 9.7, Naif Test Positive 10/24/17 05:00: White Blood Count 19.1H, Red Blood Count 6.67H, Hemoglobin 12.5L, Hematocrit 44.9, Mean Corpuscular Volume 67L, Mean Corpuscular Hemoglobin 18.7L, Mean Corpuscular Hemoglobin Concent 27.8L, Red Cell Distribution Width 22.0H, Platelet Count 238, Mean Platelet Volume 9.9, Neutrophils (%) (Auto) , Lymphocytes (%) (Auto) , Monocytes (%) (Auto) , Eosinophils (%) (Auto) , Basophils (%) (Auto) , Differential Total Cells Counted 100, Neutrophils % ( Manual) 95H, Lymphocytes % (Manual) 2L, Monocytes % (Manual) 3, Eosinophils % ( Manual) 0, Basophils % (Manual) 0, Band Neutrophils 0, Platelet Estimate Adequate, Platelet Morphology Normal, Hypochromasia 1+, Anisocytosis 2+, Microcytosis 2+, Sodium Level 144, Potassium Level 4.7, Chloride Level 105, Carbon Dioxide Level 37H, Anion Gap 2L, Blood Urea Nitrogen 39H, Creatinine 1.0 , Estimat Glomerular Filtration Rate > 60, Glucose Level 135H, Calcium Level 8.0L, Phosphorus Level 4.4, Magnesium Level 2.1, Total Bilirubin 0.8, Aspartate Amino Transf (AST/SGOT) 38H, Alanine Aminotransferase (ALT/SGPT) 47, Alkaline Phosphatase 125H, C-Reactive Protein, Quantitative 4.3H, Pro-B-Type Natriuretic Peptide 1775H, Total Protein 6.7, Albumin 2.3L, Globulin 4.4, Albumin/Globulin Ratio 0.5L 10/24/17 07:55: Arterial Blood pH 7.370, Arterial Blood Partial Pressure CO2 55.2*H, Arterial Blood Partial Pressure O2 141.7H, Arterial Blood HCO3 31.3H, Arterial Blood Oxygen Saturation 98.4H, Arterial Blood Base Excess 4.6, Naif Test Positive Height (Feet): 5 Height (Inches): 4.00 Weight (Pounds): 356 General Appearance: mild distress EENT: other - self extubated Cardiovascular: tachycardia Respiratory/Chest: decreased breath sounds Abdomen: distended Objective no other change JAY YANCEY Oct 24, 2017 16:07
[2017-10-24] MEDS: Dyna-Hex 2% Top Sol 2oz TOPIC SCH (19:48)
[2017-10-25] VITALS (24 sets, daily range): BP systolic 110–159; BP diastolic 67–90
[2017-10-25] MEDS: Albuterol/Ipratropium 3ml neb HHN PRN ×4 (01:14→19:09)
[2017-10-25] MEDS: Acetylcysteine 20% Soln 4ml HHN SCH ×4 (01:14→19:09)
[2017-10-25] MEDS: Meropenem 1 GM in NS 55 ML IVPB SCH (03:05)
[2017-10-25 06:00] LABS: HEMATOCRIT 45.1 % (42.0-52.0); MEAN CORPUSCULAR VOLUME 66 FL (80-99); PLATELET COUNT 287 K/UL (150-450); RED BLOOD COUNT 6.81 M/UL (4.70-6.10); RED CELL DISTRIBUTION WIDTH 21.1 % (11.6-14.8); WHITE BLOOD COUNT 16.8 K/UL (4.8-10.8)
[2017-10-25 06:12] LABS: ANION GAP 3 mmol/L (5-15); BLOOD UREA NITROGEN 32 mg/dL (7-18); CALCIUM 7.9 MG/DL (8.5-10.1); CARBON DIOXIDE 35 MMOL/L (21-32); CHLORIDE 103 MMOL/L (98-107); CREATININE 1.1 MG/DL (0.55-1.30); POTASSIUM 4.8 MMOL/L (3.5-5.1); SODIUM 141 MMOL/L (136-145)
[2017-10-25] MEDS: NovoLOG Insulin Flexpen SUBQ SCH ×4 (06:14→21:00)
[2017-10-25] MEDS: Vancomycin 1750mg/D5W 300ml IVPB SCH ×2 (08:39)
[2017-10-25] MEDS: Docusate 100mg/10ml Liq GT SCH ×2 (08:41→18:43)
[2017-10-25] MEDS: Solu-MEDROL 40mg Inj IVP SCH ×2 (08:41→21:08)
[2017-10-25] MEDS: Pantoprazole Inj IV SCH (08:41)
[2017-10-25] MEDS: Heparin 5000 units/ml inj SUBQ SCH (08:45)
--- NOTE | 2017-10-25 09:50 | Pulmonolgy Critical Care Note ---
Critical Care - Asmt/Plan Assessment/Plan: ASSESSMENT Acute hypercapnic RF requiring intubation s/p self extubation ( few times) likely aspiration PNA with Proteus acute pulmonary edema ARDS likely obesity hyperventilation syndrome with chronic hypercapnia, severely exacerbated by ARDS Likely scrotal cellulitis Anasarca Urinary retention-relieved ARF likely ATN -resolved hypernatremia-improved Thrombocytopenia psoriasis morbid obesity new onset of diabetes PLAN OF CARE ICU O2 via VM with cool aerosol,titrate to keep sat above 90% pulmonary toilet ABGpending for this am in am get cXR and ABG continue steroids with very slow tapering surgery consult for trach placement done, will observe for now, (discussed with dr Steinberg will prefer trach before transferring to [facility] for ECMO if accepted mother was prior in agreement with trach ) trach placement on hold for now, will observe resp status abx ID follows sputum cx + Proteus, repeated sputum cx + Proteus; urine cx negative, blood cx negative CXR 10/22 with probable new infiltrate ( + leuk, + low grade fever) s/p bronch 10/18 with evidence of ARDS, extensive airway inflammation, but no active alveolar bleeding bronchial washing cx negative nephro follows creat down to normal s/p IVF no further IVF, spot diuresis prn monitor renal parameters, lytes, correct as need, avoid nephrotoxic prior: renal US with 1500cc urinary retention Carrington placed by urologist scrotal US noted elevate scrotum Venous Duplex BLE negative ECHO with grossly preserved EF, normal wall motion to the extent visualized Pain management DVT/GI prophylaxis Monitor counts [id number] new onset of DM BS management , started on a sensitive SSI prn strict aspiration precautions, NGT feeding swallow eval today will keep in ICU for 1 more day need transfer to a higher level of care, will likely benefic from ECMO unable to transfer to [facility] due to insurance issues on a waiting list to [facility] case discussed and evaluated by supervising physician Critical Care - Objective Last 24 Hour Vital Signs Date Time Temp Pulse Resp B/P (MAP) Pulse Ox O2 Delivery O2 Flow Rate FiO2 10/25/17 09:00 86 26 130/71 95 Venturi Mask 60 10/25/17 08:00 85 10/25/17 08:00 99.1 87 22 125/74 97 Venturi Mask 60 10/25/17 07:33 81 22 94 Venturi Mask 60 10/25/17 07:23 Venturi Mask 12.0 60 10/25/17 07:23 80 22 90 Venturi Mask 12.0 60 10/25/17 07:23 Venturi Mask 12.0 60 10/25/17 07:00 92 22 159/88 93 Venturi Mask 60 10/25/17 06:00 84 23 147/87 93 Venturi Mask 60 10/25/17 05:00 86 21 132/79 93 Venturi Mask 60 10/25/17 04:00 78 10/25/17 04:00 98.9 86 21 150/87 93 Venturi Mask 60 10/25/17 03:00 78 24 125/81 93 Venturi Mask 60 10/25/17 02:00 79 21 128/74 96 Venturi Mask 60 10/25/17 01:30 76 19 95 Venturi Mask 60 10/25/17 01:14 76 21 94 Venturi Mask 12.0 60 10/25/17 01:00 82 21 122/71 96 Venturi Mask 60 10/25/17 00:00 80 24 110/74 94 Venturi Mask 60 10/25/17 00:00 80 10/24/17 23:00 86 24 128/74 94 Venturi Mask 60 10/24/17 22:00 76 21 140/78 94 Venturi Mask 60 10/24/17 21:00 99.3 78 22 125/75 93 Venturi Mask 60 10/24/17 20:00 74 21 131/65 95 Venturi Mask 60 10/24/17 20:00 74 10/24/17 19:16 78 20 95 Venturi Mask 60 10/24/17 19:06 71 22 96 Venturi Mask 12.0 60 10/24/17 19:05 96 Venturi Mask 12.0 60 10/24/17 19:05 Venturi Mask 12.0 60 10/24/17 19:00 72 21 127/70 98 T-piece 60 10/24/17 18:00 75 20 132/72 97 T-piece 60 10/24/17 17:00 82 22 128/82 95 T-piece 60 10/24/17 16:00 97 10/24/17 16:00 99.7 86 20 127/71 94 T-piece 60 10/24/17 15:00 86 19 117/70 97 T-piece 60 10/24/17 14:00 81 20 121/68 93 T-piece 60 10/24/17 13:05 89 27 96 T-piece 60 10/24/17 13:00 76 17 123/76 93 T-piece 60 10/24/17 12:57 93 29 92 Mechanical Ventilator 60 10/24/17 12:00 78 10/24/17 12:00 98.8 82 22 132/76 96 T-piece 60 10/24/17 11:00 71 21 107/60 95 T-piece 60 10/24/17 10:00 83 20 137/76 92 T-piece 60 Objective: Status: awake, alert, responsive morbidly obese middle age male, Condition: critical HEENT: atraumatic, normocephalic, 60% VM with cool aerosol, NGT with TF Lungs: few isolated rhonchi at bases, Heart: HR/BP stable, RUE PICC intact Abdomen: soft, obese , active bowel sounds Skin: + dry plaques knee and elbow anterior surface Extremities: + 2 edema BLE Accucheck: 119 Critical Care - Subjective ROS Limited/Unobtainable: No Interval Events: s/p self extubation a day ago weaned from 100% NRM to 60% VM with cool aerosol improving leukocytosis trending down ABG pending for this am Condition: improving IV Access: PICC EKG Rhythm: Sinus Rhythm FI02: 60 Sputum Amount: None I&O: Intake and Output 10/24/17 10/25/17 19:00 07:00 Intake Total 180 ml 110 ml Output Total 3815 ml 1540 ml Balance -3635 ml -1430 ml IV Total 180 ml 110 ml Output Urine Total 3815 ml 1540 ml Kalee Ricks NP ([facility]) Oct 25, 2017 09:50
--- NOTE | 2017-10-25 10:01 | Infectious Diseases Prog Note ---
Assessment/Plan Assessment/Plan ASSESSMENT: The patient is a 42-year-old male with, Possible aspiration pneumonia versus community-acquired pneumonia. Scx : P mirabilis -r/o fungal PNA -BAL cx 10/18 neg 10/13 C-Xray worsening of infiltrate vs edema Leukocytosis ( on steroids ) -stable to mildly improved 10/21 u/a neg,ucx NTD, BCx NTD Fever ( after self extubation ) improving Probable scrotal cellulitis versus discoloration of genitalia due to edema. CRP 09/15 HIV , Crypt, Aspergillus ab : neg U leg Ab and Ag: neg ARDS CORA improving PICC 10/09 VDRF self extub and reintubated 10/19; extubated 10/24 Congestive heart failure. PLAN: Cont pt on Merrem d# 13/ 14 , Diflucan d# 9 ( Empiric for possible coccidio ) , and Vanco d# 6/7-10 10/17 sp vancomycin and Doxy d# 10 / 10/13 sp Zosyn d# 5 -f/u REpeat sputum cx Monitor CBC/CMP Monitor cultures ( Ur, blood ) Continue vent support. Monitor chest x-ray Coccidio and Histo :P Fungitell Subjective Allergies: Coded Allergies: No Known Allergies (Unverified , 10/06/17) Subjective afebrile in 48hrs extubated yesterday leukocytosis improving Objective Vital Signs Last 24 Hour Vital Signs Date Time Temp Pulse Resp B/P (MAP) Pulse Ox O2 Delivery O2 Flow Rate FiO2 10/25/17 09:00 86 26 130/71 95 Venturi Mask 60 10/25/17 08:00 85 10/25/17 08:00 99.1 87 22 125/74 97 Venturi Mask 60 10/25/17 07:33 81 22 94 Venturi Mask 60 10/25/17 07:23 Venturi Mask 12.0 60 10/25/17 07:23 80 22 90 Venturi Mask 12.0 60 10/25/17 07:23 Venturi Mask 12.0 60 10/25/17 07:00 92 22 159/88 93 Venturi Mask 60 10/25/17 06:00 84 23 147/87 93 Venturi Mask 60 10/25/17 05:00 86 21 132/79 93 Venturi Mask 60 10/25/17 04:00 78 10/25/17 04:00 98.9 86 21 150/87 93 Venturi Mask 60 10/25/17 03:00 78 24 125/81 93 Venturi Mask 60 10/25/17 02:00 79 21 128/74 96 Venturi Mask 60 10/25/17 01:30 76 19 95 Venturi Mask 60 10/25/17 01:14 76 21 94 Venturi Mask 12.0 60 10/25/17 01:00 82 21 122/71 96 Venturi Mask 60 10/25/17 00:00 80 24 110/74 94 Venturi Mask 60 10/25/17 00:00 80 10/24/17 23:00 86 24 128/74 94 Venturi Mask 60 10/24/17 22:00 76 21 140/78 94 Venturi Mask 60 10/24/17 21:00 99.3 78 22 125/75 93 Venturi Mask 60 10/24/17 20:00 74 21 131/65 95 Venturi Mask 60 10/24/17 20:00 74 10/24/17 19:16 78 20 95 Venturi Mask 60 10/24/17 19:06 71 22 96 Venturi Mask 12.0 60 10/24/17 19:05 96 Venturi Mask 12.0 60 10/24/17 19:05 Venturi Mask 12.0 60 10/24/17 19:00 72 21 127/70 98 T-piece 60 10/24/17 18:00 75 20 132/72 97 T-piece 60 10/24/17 17:00 82 22 128/82 95 T-piece 60 10/24/17 16:00 97 10/24/17 16:00 99.7 86 20 127/71 94 T-piece 60 10/24/17 15:00 86 19 117/70 97 T-piece 60 10/24/17 14:00 81 20 121/68 93 T-piece 60 10/24/17 13:05 89 27 96 T-piece 60 10/24/17 13:00 76 17 123/76 93 T-piece 60 10/24/17 12:57 93 29 92 Mechanical Ventilator 60 10/24/17 12:00 78 10/24/17 12:00 98.8 82 22 132/76 96 T-piece 60 10/24/17 11:00 71 21 107/60 95 T-piece 60 10/24/17 10:00 83 20 137/76 92 T-piece 60 Height (Feet): 5 Height (Inches): 4.00 Weight (Pounds): 356 Objective Status: sedated Condition: critical HEENT: atraumatic, normocephalic, other - ETT, R NGT Lungs: rhonchi - scattered anterior Heart: RRR Abdomen: soft, non-tender, active bowel sounds Extremities: no C/C/E Genitalia:Scrotal edema, erythema and warmth slightly improved Laboratory Tests Test 10/24/17 17:30 10/25/17 05:00 Vancomycin Level Trough 24.3 ug/mL (5.0-12.0) H White Blood Count 16.8 K/UL (4.8-10.8) H Red Blood Count 6.81 M/UL (4.70-6.10) H Hemoglobin 13.0 G/DL (14.2-18.0) L Hematocrit 45.1 % (42.0-52.0) Mean Corpuscular Volume 66 FL (80-99) L Mean Corpuscular Hemoglobin 19.1 PG (27.0-31.0) L Mean Corpuscular Hemoglobin Concent 28.9 G/DL (32.0-36.0) L Red Cell Distribution Width 21.1 % (11.6-14.8) H Platelet Count 287 K/UL (150-450) Mean Platelet Volume 10.1 FL (6.5-10.1) Neutrophils (%) (Auto) % (45.0-75.0) Lymphocytes (%) (Auto) % (20.0-45.0) Monocytes (%) (Auto) % (1.0-10.0) Eosinophils (%) (Auto) % (0.0-3.0) Basophils (%) (Auto) % (0.0-2.0) Neutrophils % (Manual) Pending Lymphocytes % (Manual) Pending Platelet Estimate Pending Platelet Morphology Pending Sodium Level 141 MMOL/L (136-145) Potassium Level 4.8 MMOL/L (3.5-5.1) Chloride Level 103 MMOL/L (98-107) Carbon Dioxide Level 35 MMOL/L (21-32) H Anion Gap 3 mmol/L (5-15) L Blood Urea Nitrogen 32 mg/dL (7-18) H Creatinine 1.1 MG/DL (0.55-1.30) Estimat Glomerular Filtration Rate > 60 mL/min (>60) Glucose Level 116 MG/DL (74-106) H Calcium Level 7.9 MG/DL (8.5-10.1) L Random Vancomycin Level 14.3 ug/mL Current Medications Medications (Trade) Dose Ordered Sig/Prince Route PRN Reason Start Time Stop Time Status Last Admin Dose Admin Acetaminophen (Tylenol) 650 mg EVERY 4 HOURS PRN NG Mild Pain/Temp > 100.5 10/09/17 10:15 11/08/17 10:14 10/20/17 23:58 Acetylcysteine (Mucomyst) 200 mg Q6HRT HHN 10/15/17 13:00 11/14/17 12:59 10/25/17 07:23 Albuterol/ Ipratropium (Albuterol/ Ipratropium) 3 ml Q4H PRN HHN Shortness of Breath 10/23/17 12:00 10/28/17 11:59 10/25/17 07:23 Chlorhexidine Gluconate (Sol-Hex 2%) 1 applic DAILY@2000 TOPIC 10/09/17 20:00 11/08/17 19:59 10/24/17 19:48 Dextrose (Dextrose 50%) STAT PRN IV Hypoglycemia 10/12/17 11:00 11/11/17 10:59 Docusate Sodium (Colace) 100 mg BID GT 10/13/17 17:00 11/12/17 16:59 10/25/17 08:41 Fentanyl Citrate 2500 mcg/Sodium Chloride 250 ml @ 0 mls/hr Q24H IV 10/20/17 15:30 10/27/17 15:29 10/24/17 01:47 Fluconazole/ Sodium Chloride 200 ml @ 100 mls/hr Q24H IV 10/25/17 11:00 11/01/17 10:59 Haloperidol Lactate 5 mg/ Dextrose 56 ml @ 224 mls/hr Q1H PRN IVPB BREAKTHROUGH AGITATION 10/08/17 17:00 11/07/17 16:59 10/24/17 02:15 Heparin Sodium (Porcine) (Heparin 5000 units/ml) 5,000 units DAILY SUBQ 10/08/17 11:00 11/07/17 10:59 10/25/17 08:45 Insulin Aspart (NovoLOG) BEFORE MEALS AND HS SUBQ 10/12/17 11:30 11/11/17 11:29 10/25/17 06:14 Magnesium Hydroxide (Mom) 30 ml DAILYPRN PRN GT Constipation 10/13/17 16:30 11/12/17 16:29 10/21/17 20:44 Meropenem 1 gm/ Sodium Chloride 110 ml @ 220 mls/hr Q8HR@0200,1200,2000 IVPB 10/25/17 12:00 10/30/17 11:59 Methylprednisolone Sodium Succinate (Solu-MEDROL) 20 mg Q12HR IVP 10/22/17 21:00 11/21/17 20:59 10/25/17 08:41 Pantoprazole (Protonix) 40 mg DAILY IV 10/07/17 11:00 11/06/17 10:59 10/25/17 08:41 Vancomycin HCl (Vanco rx to dose) 1 ea DAILY PRN MISC Per rx protocol 10/20/17 11:15 11/19/17 11:14 Vancomycin HCl 1.75 gm/Dextrose 325 ml @ 162.5 mls/ hr Q24H IVPB 10/25/17 08:00 10/30/17 07:59 10/25/17 08:39 Evelin Lam M.D. Oct 25, 2017 10:01
[2017-10-25] MEDS: Meropenem 1 GM in NS 110 ML IVPB SCH ×2 (11:16→20:14)
--- NOTE | 2017-10-25 12:06 | Diagnostic Imaging Report ---
Indication: Shortness of breath Technique: One view of the chest Comparison: 10/24/2017 Findings: Allowing for technical differences, bilateral diffuse interstitial and airspace opacities appears stable or perhaps minimally improved. The heart remains borderline enlarged. Right arm PICC remains. Impression: Stable or perhaps slightly improved diffuse bilateral interstitial and airspace edema versus infiltrates, over one day
--- NOTE | 2017-10-25 12:11 | Nephrology Progress Note ---
Assessment/Plan Problem List: (1) Acute respiratory failure Assessment: self extubated 10/24 (2) Acute renal failure Assessment: with previous urinary out let obstruction Assessment Cr stable- s/p Acute renal failure- Cr WNL Acute Respiratory distress , ? aspiration pneumonia, intubated ARDS Acute Pulmonary edema Anasarca scotal cellutis Morbid obesity. Thrombocytopenia. Abnormal blood sugar. Anemia. Plan Plan: per consultants K and Mag supplement as needed Keep BP in check pulm support avoid nephrotoxics monitor renal parameters per consultants / pulmonary per orders Left ventricular ejection fraction estimated to be grossly normal. Mild left ventricular hypertrophy. Subjective ROS Limited/Unobtainable: No Constitutional: Reports: malaise Objective Objective Last 24 Hour Vital Signs Date Time Temp Pulse Resp B/P (MAP) Pulse Ox O2 Delivery O2 Flow Rate FiO2 10/25/17 12:00 99.2 76 25 135/84 96 Venturi Mask 60 10/25/17 11:00 79 20 138/82 98 Venturi Mask 60 10/25/17 10:00 87 23 129/81 98 Venturi Mask 60 10/25/17 09:00 86 26 130/71 95 Venturi Mask 60 10/25/17 08:00 85 10/25/17 08:00 99.1 87 22 125/74 97 Venturi Mask 60 10/25/17 07:33 81 22 94 Venturi Mask 60 10/25/17 07:23 Venturi Mask 12.0 60 10/25/17 07:23 80 22 90 Venturi Mask 12.0 60 10/25/17 07:23 Venturi Mask 12.0 60 10/25/17 07:00 92 22 159/88 93 Venturi Mask 60 10/25/17 06:00 84 23 147/87 93 Venturi Mask 60 10/25/17 05:00 86 21 132/79 93 Venturi Mask 60 10/25/17 04:00 78 10/25/17 04:00 98.9 86 21 150/87 93 Venturi Mask 60 10/25/17 03:00 78 24 125/81 93 Venturi Mask 60 10/25/17 02:00 79 21 128/74 96 Venturi Mask 60 10/25/17 01:30 76 19 95 Venturi Mask 60 10/25/17 01:14 76 21 94 Venturi Mask 12.0 60 10/25/17 01:00 82 21 122/71 96 Venturi Mask 60 10/25/17 00:00 80 24 110/74 94 Venturi Mask 60 10/25/17 00:00 80 10/24/17 23:00 86 24 128/74 94 Venturi Mask 60 10/24/17 22:00 76 21 140/78 94 Venturi Mask 60 10/24/17 21:00 99.3 78 22 125/75 93 Venturi Mask 60 10/24/17 20:00 74 21 131/65 95 Venturi Mask 60 10/24/17 20:00 74 10/24/17 19:16 78 20 95 Venturi Mask 60 10/24/17 19:06 71 22 96 Venturi Mask 12.0 60 10/24/17 19:05 96 Venturi Mask 12.0 60 10/24/17 19:05 Venturi Mask 12.0 60 10/24/17 19:00 72 21 127/70 98 T-piece 60 10/24/17 18:00 75 20 132/72 97 T-piece 60 10/24/17 17:00 82 22 128/82 95 T-piece 60 10/24/17 16:00 97 10/24/17 16:00 99.7 86 20 127/71 94 T-piece 60 10/24/17 15:00 86 19 117/70 97 T-piece 60 10/24/17 14:00 81 20 121/68 93 T-piece 60 10/24/17 13:05 89 27 96 T-piece 60 10/24/17 13:00 76 17 123/76 93 T-piece 60 10/24/17 12:57 93 29 92 Mechanical Ventilator 60 Intake and Output 10/24/17 10/25/17 19:00 07:00 Intake Total 180 ml 110 ml Output Total 3815 ml 1540 ml Balance -3635 ml -1430 ml IV Total 180 ml 110 ml Output Urine Total 3815 ml 1540 ml Laboratory Tests 10/24/17 17:30: Vancomycin Level Trough 24.3H 10/25/17 05:00: White Blood Count 16.8H, Red Blood Count 6.81H, Hemoglobin 13.0L, Hematocrit 45.1, Mean Corpuscular Volume 66L, Mean Corpuscular Hemoglobin 19.1L, Mean Corpuscular Hemoglobin Concent 28.9L, Red Cell Distribution Width 21.1H, Platelet Count 287, Mean Platelet Volume 10.1, Neutrophils (%) (Auto) , Lymphocytes (%) (Auto) , Monocytes (%) (Auto) , Eosinophils (%) (Auto) , Basophils (%) (Auto) , Differential Total Cells Counted 100, Neutrophils % ( Manual) 95H, Lymphocytes % (Manual) 1L, Monocytes % (Manual) 2, Eosinophils % ( Manual) 0, Basophils % (Manual) 0, Band Neutrophils 2, Platelet Estimate Adequate, Platelet Morphology Normal, Hypochromasia 3+, Anisocytosis 3+, Microcytosis 2+, Sodium Level 141, Potassium Level 4.8, Chloride Level 103, Carbon Dioxide Level 35H, Anion Gap 3L, Blood Urea Nitrogen 32H, Creatinine 1.1 , Estimat Glomerular Filtration Rate > 60, Glucose Level 116H, Calcium Level 7.9L, Random Vancomycin Level 14.3 10/25/17 10:40: Arterial Blood pH 7.439, Arterial Blood Partial Pressure CO2 47.2H, Arterial Blood Partial Pressure O2 94.8, Arterial Blood HCO3 31.3H, Arterial Blood Oxygen Saturation 96.9, Arterial Blood Base Excess 6.1, Naif Test Positive Height (Feet): 5 Height (Inches): 4.00 Weight (Pounds): 356 General Appearance: no apparent distress Cardiovascular: normal rate Respiratory/Chest: decreased breath sounds Abdomen: distended Objective no other change JAY YANCEY Oct 25, 2017 12:11
--- NOTE | 2017-10-25 12:46 | General Surgery Progress Note ---
General Surgery-Progress Note Subjective Symptoms: improved Additional Comments doing well with good pulmonary toilet. O2 stat 97% this AM on face mask. Objective Last 24 Hour Vital Signs Date Time Temp Pulse Resp B/P (MAP) Pulse Ox O2 Delivery O2 Flow Rate FiO2 10/25/17 12:00 75 10/25/17 12:00 99.2 76 25 135/84 96 Venturi Mask 60 10/25/17 11:00 79 20 138/82 98 Venturi Mask 60 10/25/17 10:00 87 23 129/81 98 Venturi Mask 60 10/25/17 09:00 86 26 130/71 95 Venturi Mask 60 10/25/17 08:00 85 10/25/17 08:00 99.1 87 22 125/74 97 Venturi Mask 60 10/25/17 07:33 81 22 94 Venturi Mask 60 10/25/17 07:23 Venturi Mask 12.0 60 10/25/17 07:23 80 22 90 Venturi Mask 12.0 60 10/25/17 07:23 Venturi Mask 12.0 60 10/25/17 07:00 92 22 159/88 93 Venturi Mask 60 10/25/17 06:00 84 23 147/87 93 Venturi Mask 60 10/25/17 05:00 86 21 132/79 93 Venturi Mask 60 10/25/17 04:00 78 10/25/17 04:00 98.9 86 21 150/87 93 Venturi Mask 60 10/25/17 03:00 78 24 125/81 93 Venturi Mask 60 10/25/17 02:00 79 21 128/74 96 Venturi Mask 60 10/25/17 01:30 76 19 95 Venturi Mask 60 10/25/17 01:14 76 21 94 Venturi Mask 12.0 60 10/25/17 01:00 82 21 122/71 96 Venturi Mask 60 10/25/17 00:00 80 24 110/74 94 Venturi Mask 60 10/25/17 00:00 80 10/24/17 23:00 86 24 128/74 94 Venturi Mask 60 10/24/17 22:00 76 21 140/78 94 Venturi Mask 60 10/24/17 21:00 99.3 78 22 125/75 93 Venturi Mask 60 10/24/17 20:00 74 21 131/65 95 Venturi Mask 60 10/24/17 20:00 74 10/24/17 19:16 78 20 95 Venturi Mask 60 10/24/17 19:06 71 22 96 Venturi Mask 12.0 60 10/24/17 19:05 96 Venturi Mask 12.0 60 10/24/17 19:05 Venturi Mask 12.0 60 10/24/17 19:00 72 21 127/70 98 T-piece 60 10/24/17 18:00 75 20 132/72 97 T-piece 60 10/24/17 17:00 82 22 128/82 95 T-piece 60 10/24/17 16:00 97 10/24/17 16:00 99.7 86 20 127/71 94 T-piece 60 10/24/17 15:00 86 19 117/70 97 T-piece 60 10/24/17 14:00 81 20 121/68 93 T-piece 60 10/24/17 13:05 89 27 96 T-piece 60 10/24/17 13:00 76 17 123/76 93 T-piece 60 10/24/17 12:57 93 29 92 Mechanical Ventilator 60 I&O Intake and Output 10/24/17 10/25/17 19:00 07:00 Intake Total 180 ml 110 ml Output Total 3815 ml 1540 ml Balance -3635 ml -1430 ml IV Total 180 ml 110 ml Output Urine Total 3815 ml 1540 ml Cardiovascular: RSR Respiratory: decreased breath sounds Abdomen: soft, distended, present bowel sounds Extremities: no tenderness Laboratory Tests Test 10/24/17 17:30 10/25/17 05:00 10/25/17 10:40 Vancomycin Level Trough 24.3 ug/mL (5.0-12.0) H White Blood Count 16.8 K/UL (4.8-10.8) H Red Blood Count 6.81 M/UL (4.70-6.10) H Hemoglobin 13.0 G/DL (14.2-18.0) L Hematocrit 45.1 % (42.0-52.0) Mean Corpuscular Volume 66 FL (80-99) L Mean Corpuscular Hemoglobin 19.1 PG (27.0-31.0) L Mean Corpuscular Hemoglobin Concent 28.9 G/DL (32.0-36.0) L Red Cell Distribution Width 21.1 % (11.6-14.8) H Platelet Count 287 K/UL (150-450) Mean Platelet Volume 10.1 FL (6.5-10.1) Neutrophils (%) (Auto) % (45.0-75.0) Lymphocytes (%) (Auto) % (20.0-45.0) Monocytes (%) (Auto) % (1.0-10.0) Eosinophils (%) (Auto) % (0.0-3.0) Basophils (%) (Auto) % (0.0-2.0) Differential Total Cells Counted 100 Neutrophils % (Manual) 95 % (45-75) H Lymphocytes % (Manual) 1 % (20-45) L Monocytes % (Manual) 2 % (1-10) Eosinophils % (Manual) 0 % (0-3) Basophils % (Manual) 0 % (0-2) Band Neutrophils 2 % (0-8) Platelet Estimate Adequate Platelet Morphology Normal Hypochromasia 3+ Anisocytosis 3+ Microcytosis 2+ Sodium Level 141 MMOL/L (136-145) Potassium Level 4.8 MMOL/L (3.5-5.1) Chloride Level 103 MMOL/L (98-107) Carbon Dioxide Level 35 MMOL/L (21-32) H Anion Gap 3 mmol/L (5-15) L Blood Urea Nitrogen 32 mg/dL (7-18) H Creatinine 1.1 MG/DL (0.55-1.30) Estimat Glomerular Filtration Rate > 60 mL/min (>60) Glucose Level 116 MG/DL (74-106) H Calcium Level 7.9 MG/DL (8.5-10.1) L Random Vancomycin Level 14.3 ug/mL Arterial Blood pH 7.439 (7.350-7.450) Arterial Blood Partial Pressure CO2 47.2 mmHg (35.0-45.0) H Arterial Blood Partial Pressure O2 94.8 mmHg (75.0-100.0) Arterial Blood HCO3 31.3 mmol/L (22.0-26.0) H Arterial Blood Oxygen Saturation 96.9 % (92.0-98.0) Arterial Blood Base Excess 6.1 Naif Test Positive Plan Problems: (1) Respiratory distress (2) Acute respiratory failure Assessment & Plan: fortunately his is improving and has been doing well since self extubated. no signs of acute respiratory insufficiency again and with good pulmonary toilet has been improving. will need to monitor closely still and can potentially decompensate again. if does decompensate again would recommend trach. for now will monitor. Rebel Rios Oct 25, 2017 12:46
[2017-10-25] MEDS: fentaNYL Citrate 2500mcg in NS 250ml IV SCH (15:30)
[2017-10-25] MEDS: Dyna-Hex 2% Top Sol 2oz TOPIC SCH (20:09)
[2017-10-26] VITALS (14 sets, daily range): BP systolic 113–152; BP diastolic 74–98
[2017-10-26] MEDS: Albuterol/Ipratropium 3ml neb HHN PRN ×4 (01:14→19:25)
[2017-10-26] MEDS: Acetylcysteine 20% Soln 4ml HHN SCH ×4 (01:15→19:25)
[2017-10-26] MEDS: Meropenem 1 GM in NS 110 ML IVPB SCH ×3 (01:51→20:39)
[2017-10-26 06:04] LABS: HEMATOCRIT 47.9 % (42.0-52.0); HEMOGLOBIN 13.7 G/DL (14.2-18.0); MEAN CORPUSCULAR VOLUME 66 FL (80-99); PLATELET COUNT 299 K/UL (150-450); RED BLOOD COUNT 7.29 M/UL (4.70-6.10); RED CELL DISTRIBUTION WIDTH 21.4 % (11.6-14.8); WHITE BLOOD COUNT 16.5 K/UL (4.8-10.8)
[2017-10-26] MEDS: NovoLOG Insulin Flexpen SUBQ SCH ×4 (06:27→21:00)
[2017-10-26 06:33] LABS: ANION GAP 3 mmol/L (5-15); BLOOD UREA NITROGEN 32 mg/dL (7-18); CARBON DIOXIDE 33 MMOL/L (21-32); CHLORIDE 103 MMOL/L (98-107); POTASSIUM 4.4 MMOL/L (3.5-5.1); SODIUM 139 MMOL/L (136-145)
[2017-10-26] MEDS: Vancomycin 1750mg/D5W 300ml IVPB SCH ×2 (08:29)
[2017-10-26] MEDS: Docusate 100mg/10ml Liq GT SCH ×2 (08:54→16:15)
[2017-10-26] MEDS: Pantoprazole Inj IV SCH (08:54)
[2017-10-26] MEDS: Solu-MEDROL 40mg Inj IVP SCH ×2 (08:54→21:48)
[2017-10-26] MEDS: Heparin 5000 units/ml inj SUBQ SCH (08:56)
--- NOTE | 2017-10-26 09:15 | General Surgery Progress Note ---
General Surgery-Progress Note Subjective Symptoms: improved Additional Comments comfortable. able to converse without difficulty. no respiratory distress. good oxygenation. abg improved. Objective Last 24 Hour Vital Signs Date Time Temp Pulse Resp B/P (MAP) Pulse Ox O2 Delivery O2 Flow Rate FiO2 10/26/17 07:04 89 25 98 Venturi Mask 9.0 50 10/26/17 06:38 81 17 98 Venturi Mask 9.0 50 10/26/17 06:38 98 Venturi Mask 9.0 50 10/26/17 06:38 Venturi Mask 9.0 50 10/26/17 06:00 79 22 141/98 99 Venturi Mask 60 10/26/17 05:00 85 25 144/84 99 Venturi Mask 60 10/26/17 04:00 98.9 83 25 131/88 98 Venturi Mask 60 10/26/17 04:00 83 10/26/17 03:00 84 22 130/80 95 Venturi Mask 60 10/26/17 02:00 88 22 147/89 96 Venturi Mask 60 10/26/17 01:00 83 24 138/87 99 Venturi Mask 60 10/26/17 00:52 85 22 99 Venturi Mask 60 10/26/17 00:45 95 Venturi Mask 12.0 60 10/26/17 00:45 Venturi Mask 12.0 60 10/26/17 00:45 84 23 97 Venturi Mask 12.0 60 10/26/17 00:00 77 10/26/17 00:00 99.0 77 23 152/89 98 Venturi Mask 60 10/25/17 23:00 83 26 150/81 97 Venturi Mask 60 10/25/17 22:00 87 22 144/84 97 Venturi Mask 60 10/25/17 21:00 87 26 117/82 97 Venturi Mask 60 10/25/17 20:02 85 10/25/17 20:00 98.3 94 26 115/73 94 Venturi Mask 60 10/25/17 19:00 83 22 134/81 96 Venturi Mask 60 10/25/17 18:50 83 22 99 Venturi Mask 60 10/25/17 18:50 97 Venturi Mask 12.0 60 10/25/17 18:50 Venturi Mask 12.0 60 10/25/17 18:40 77 23 98 Venturi Mask 12.0 60 10/25/17 18:00 73 22 122/67 96 Venturi Mask 60 10/25/17 17:00 76 18 126/78 98 Venturi Mask 60 10/25/17 16:00 89 10/25/17 16:00 99.0 82 19 122/78 97 Venturi Mask 60 10/25/17 15:00 80 26 125/81 99 Venturi Mask 60 10/25/17 14:00 80 20 131/77 99 Venturi Mask 60 10/25/17 13:30 82 20 99 Venturi Mask 60 10/25/17 13:15 73 24 98 Venturi Mask 12.0 60 10/25/17 13:00 75 25 147/90 100 Venturi Mask 60 10/25/17 12:00 75 10/25/17 12:00 99.2 76 25 135/84 96 Venturi Mask 60 10/25/17 11:00 79 20 138/82 98 Venturi Mask 60 10/25/17 10:00 87 23 129/81 98 Venturi Mask 60 I&O Intake and Output 10/25/17 10/26/17 19:00 07:00 Intake Total 833.535 ml 220 ml Output Total 3331 ml 1900 ml Balance -2497.465 ml -1680 ml IV Total 833.535 ml 220 ml Output Urine Total 3330 ml 1900 ml Stool Total 1 ml # Bowel Movements 2 Cardiovascular: RSR Respiratory: decreased breath sounds Abdomen: soft, distended, non-tender Extremities: no tenderness Laboratory Tests Test 10/25/17 10:40 10/26/17 04:00 10/26/17 05:00 Arterial Blood pH 7.439 (7.350-7.450) 7.438 (7.350-7.450) Arterial Blood Partial Pressure CO2 47.2 mmHg (35.0-45.0) H 46.4 mmHg (35.0-45.0) H Arterial Blood Partial Pressure O2 94.8 mmHg (75.0-100.0) 68.2 mmHg (75.0-100.0) L Arterial Blood HCO3 31.3 mmol/L (22.0-26.0) H 30.7 mmol/L (22.0-26.0) H Arterial Blood Oxygen Saturation 96.9 % (92.0-98.0) 93.5 % (92.0-98.0) Arterial Blood Base Excess 6.1 5.6 Naif Test Positive Positive White Blood Count 16.5 K/UL (4.8-10.8) H Red Blood Count 7.29 M/UL (4.70-6.10) H Hemoglobin 13.7 G/DL (14.2-18.0) L Hematocrit 47.9 % (42.0-52.0) Mean Corpuscular Volume 66 FL (80-99) L Mean Corpuscular Hemoglobin 18.8 PG (27.0-31.0) L Mean Corpuscular Hemoglobin Concent 28.6 G/DL (32.0-36.0) L Red Cell Distribution Width 21.4 % (11.6-14.8) H Platelet Count 299 K/UL (150-450) Mean Platelet Volume 9.6 FL (6.5-10.1) Neutrophils (%) (Auto) % (45.0-75.0) Lymphocytes (%) (Auto) % (20.0-45.0) Monocytes (%) (Auto) % (1.0-10.0) Eosinophils (%) (Auto) % (0.0-3.0) Basophils (%) (Auto) % (0.0-2.0) Differential Total Cells Counted 100 Neutrophils % (Manual) 92 % (45-75) H Lymphocytes % (Manual) 1 % (20-45) L Monocytes % (Manual) 7 % (1-10) Eosinophils % (Manual) 0 % (0-3) Basophils % (Manual) 0 % (0-2) Band Neutrophils 0 % (0-8) Platelet Estimate Adequate Platelet Morphology Normal Hypochromasia 1+ Anisocytosis 2+ Microcytosis 2+ Sodium Level 139 MMOL/L (136-145) Potassium Level 4.4 MMOL/L (3.5-5.1) Chloride Level 103 MMOL/L (98-107) Carbon Dioxide Level 33 MMOL/L (21-32) H Anion Gap 3 mmol/L (5-15) L Blood Urea Nitrogen 32 mg/dL (7-18) H Creatinine 1.0 MG/DL (0.55-1.30) Estimat Glomerular Filtration Rate > 60 mL/min (>60) Glucose Level 113 MG/DL (74-106) H Calcium Level 8.0 MG/DL (8.5-10.1) L Plan Problems: (1) Respiratory distress (2) Acute respiratory failure Assessment & Plan: continues to improve. no signs of acute respiratory insufficiency again and with good pulmonary toilet has been improving. will need to monitor closely still and can potentially decompensate again. if does decompensate again would recommend trach. for now will monitor. Rebel Rios Oct 26, 2017 09:15
--- NOTE | 2017-10-26 09:22 | Pulmonolgy Critical Care Note ---
Critical Care - Asmt/Plan Assessment/Plan: ASSESSMENT Acute hypercapnic RF requiring intubation s/p self extubation ( few times) likely aspiration PNA with Proteus acute pulmonary edema ARDS likely obesity hyperventilation syndrome with chronic hypercapnia, severely exacerbated by ARDS Likely scrotal cellulitis Anasarca Urinary retention-relieved ARF likely ATN -resolved hypernatremia-improved Thrombocytopenia psoriasis morbid obesity new onset of diabetes PLAN OF CARE ICU O2 via VM with cool aerosol,titrate to keep sat above 90% pulmonary toilet ABG in am this am stable ABG still some hypercapnia, but improving, CXR with small improvement continue steroids with very slow tapering surgery consult for trach placement done, will observe for now, (discussed with dr Steinberg will prefer trach before transferring to [facility] for ECMO if accepted mother was prior in agreement with trach ) trach placement on hold for now, will observe resp status abx ID follows sputum cx + Proteus, repeated sputum cx + Proteus; urine cx negative, blood cx negative CXR 10/22 with probable new infiltrate ( + leuk, + low grade fever) s/p bronch 10/18 with evidence of ARDS, extensive airway inflammation, but no active alveolar bleeding bronchial washing cx negative nephro follows creat down to normal s/p IVF no further IVF, spot diuresis prn , will give 1 small dose today monitor renal parameters, lytes, correct as need, avoid nephrotoxic prior: renal US with 1500cc urinary retention Carrington placed by urologist scrotal US noted elevate scrotum Venous Duplex BLE negative ECHO with grossly preserved EF, normal wall motion to the extent visualized Pain management DVT/GI prophylaxis Monitor counts [id number] new onset of DM BS management , started on a sensitive SSI prn strict aspiration precautions, NGT feeding swallow eval today( not done 10/25 as ordered) , diet as per ST need transfer to a higher level of care, will likely benefit from ECMO unable to transfer to [facility] due to insurance issues on a waiting list to [facility] transfer to [place] case discussed and evaluated by supervising physician Critical Care - Objective Last 24 Hour Vital Signs Date Time Temp Pulse Resp B/P (MAP) Pulse Ox O2 Delivery O2 Flow Rate FiO2 10/26/17 07:04 89 25 98 Venturi Mask 9.0 50 10/26/17 06:38 81 17 98 Venturi Mask 9.0 50 10/26/17 06:38 98 Venturi Mask 9.0 50 10/26/17 06:38 Venturi Mask 9.0 50 10/26/17 06:00 79 22 141/98 99 Venturi Mask 60 10/26/17 05:00 85 25 144/84 99 Venturi Mask 60 10/26/17 04:00 98.9 83 25 131/88 98 Venturi Mask 60 10/26/17 04:00 83 10/26/17 03:00 84 22 130/80 95 Venturi Mask 60 10/26/17 02:00 88 22 147/89 96 Venturi Mask 60 10/26/17 01:00 83 24 138/87 99 Venturi Mask 60 10/26/17 00:52 85 22 99 Venturi Mask 60 10/26/17 00:45 95 Venturi Mask 12.0 60 10/26/17 00:45 Venturi Mask 12.0 60 10/26/17 00:45 84 23 97 Venturi Mask 12.0 60 10/26/17 00:00 77 10/26/17 00:00 99.0 77 23 152/89 98 Venturi Mask 60 10/25/17 23:00 83 26 150/81 97 Venturi Mask 60 10/25/17 22:00 87 22 144/84 97 Venturi Mask 60 10/25/17 21:00 87 26 117/82 97 Venturi Mask 60 10/25/17 20:02 85 10/25/17 20:00 98.3 94 26 115/73 94 Venturi Mask 60 10/25/17 19:00 83 22 134/81 96 Venturi Mask 60 10/25/17 18:50 83 22 99 Venturi Mask 60 10/25/17 18:50 97 Venturi Mask 12.0 60 10/25/17 18:50 Venturi Mask 12.0 60 10/25/17 18:40 77 23 98 Venturi Mask 12.0 60 10/25/17 18:00 73 22 122/67 96 Venturi Mask 60 10/25/17 17:00 76 18 126/78 98 Venturi Mask 60 10/25/17 16:00 89 10/25/17 16:00 99.0 82 19 122/78 97 Venturi Mask 60 10/25/17 15:00 80 26 125/81 99 Venturi Mask 60 10/25/17 14:00 80 20 131/77 99 Venturi Mask 60 10/25/17 13:30 82 20 99 Venturi Mask 60 10/25/17 13:15 73 24 98 Venturi Mask 12.0 60 10/25/17 13:00 75 25 147/90 100 Venturi Mask 60 10/25/17 12:00 75 10/25/17 12:00 99.2 76 25 135/84 96 Venturi Mask 60 10/25/17 11:00 79 20 138/82 98 Venturi Mask 60 10/25/17 10:00 87 23 129/81 98 Venturi Mask 60 Objective: Status: awake, alert, responsive morbidly obese middle age male, Condition: critical HEENT: atraumatic, normocephalic, 50% VM with cool aerosol, Lungs: clear, few crackles at bases Heart: HR/BP stable, RUE PICC intact Abdomen: soft, obese , active bowel sounds Skin: + dry plaques knee and elbow anterior surface Extremities: + 2 edema BLE Micro: Microbiology Date/Time Source Procedure Growth Status 10/24/17 11:00 Sputum Gram Stain - Final Resulted 10/24/17 11:00 Sputum Sputum Culture - Preliminary Resulted Accucheck: 109 Critical Care - Subjective Interval Events: downgraded to VM 50% with cool aerosol ABG and CXR slightly better Condition: improving IV Access: PICC EKG Rhythm: Sinus Rhythm FI02: 50 Sputum Amount: None I&O: Intake and Output 10/25/17 10/26/17 19:00 07:00 Intake Total 833.535 ml 220 ml Output Total 3331 ml 1900 ml Balance -2497.465 ml -1680 ml IV Total 833.535 ml 220 ml Output Urine Total 3330 ml 1900 ml Stool Total 1 ml # Bowel Movements 2 CXR: 10/25Stable or perhaps slightly improved diffuse bilateral interstitial and airspace edema versus infiltrates, over one day Rambo GomezKalee hawk NP Oct 26, 2017 09:22
--- NOTE | 2017-10-26 09:47 | Infectious Diseases Prog Note ---
Assessment/Plan Assessment/Plan ASSESSMENT: The patient is a 42-year-old male with, Possible aspiration pneumonia versus community-acquired pneumonia. Scx : P mirabilis -r/o fungal PNA -BAL cx 10/18 neg 10/25 CXR: Stable or perhaps slightly improved diffuse bilateral interstitial and airspace edema versus infiltrates, over one day 10/13 C-Xray worsening of infiltrate vs edema -cocci pending Leukocytosis ( on steroids ) -improving 10/21 u/a neg,ucx NTD, BCx NTD Fever ( after self extubation ) improving Probable scrotal cellulitis versus discoloration of genitalia due to edema; improved CRP 09/15 HIV , Crypt, Aspergillus ab : neg U leg Ab and Ag: neg ARDS CORA improving PICC 10/09 VDRF self extub and reintubated 10/19; extubated 10/24 Congestive heart failure. PLAN: Cont pt on Merrem d# 14/ 14 , Diflucan d# 10 ( Empiric for possible coccidio ) , and Vanco d# 7/7-10 10/17 sp vancomycin and Doxy d# 10 / 10 10/13 sp Zosyn d# 5 -f/u REpeat sputum cx Monitor CBC/CMP Monitor cultures ( Ur, blood ) Continue vent support. Monitor chest x-ray Coccidio and Histo :P Fungitell Subjective Allergies: Coded Allergies: No Known Allergies (Unverified , 10/06/17) Subjective afebrile in72rs on VM, Fio2 decreased to 50% leukocytosis stable awaiting cocci serologies Objective Vital Signs Last 24 Hour Vital Signs Date Time Temp Pulse Resp B/P (MAP) Pulse Ox O2 Delivery O2 Flow Rate FiO2 10/26/17 07:04 89 25 98 Venturi Mask 9.0 50 10/26/17 06:38 81 17 98 Venturi Mask 9.0 50 10/26/17 06:38 98 Venturi Mask 9.0 50 10/26/17 06:38 Venturi Mask 9.0 50 10/26/17 06:00 79 22 141/98 99 Venturi Mask 60 10/26/17 05:00 85 25 144/84 99 Venturi Mask 60 10/26/17 04:00 98.9 83 25 131/88 98 Venturi Mask 60 10/26/17 04:00 83 10/26/17 03:00 84 22 130/80 95 Venturi Mask 60 10/26/17 02:00 88 22 147/89 96 Venturi Mask 60 10/26/17 01:00 83 24 138/87 99 Venturi Mask 60 10/26/17 00:52 85 22 99 Venturi Mask 60 10/26/17 00:45 95 Venturi Mask 12.0 60 10/26/17 00:45 Venturi Mask 12.0 60 10/26/17 00:45 84 23 97 Venturi Mask 12.0 60 10/26/17 00:00 77 10/26/17 00:00 99.0 77 23 152/89 98 Venturi Mask 60 10/25/17 23:00 83 26 150/81 97 Venturi Mask 60 10/25/17 22:00 87 22 144/84 97 Venturi Mask 60 10/25/17 21:00 87 26 117/82 97 Venturi Mask 60 10/25/17 20:02 85 10/25/17 20:00 98.3 94 26 115/73 94 Venturi Mask 60 10/25/17 19:00 83 22 134/81 96 Venturi Mask 60 10/25/17 18:50 83 22 99 Venturi Mask 60 10/25/17 18:50 97 Venturi Mask 12.0 60 10/25/17 18:50 Venturi Mask 12.0 60 10/25/17 18:40 77 23 98 Venturi Mask 12.0 60 10/25/17 18:00 73 22 122/67 96 Venturi Mask 60 10/25/17 17:00 76 18 126/78 98 Venturi Mask 60 10/25/17 16:00 89 10/25/17 16:00 99.0 82 19 122/78 97 Venturi Mask 60 10/25/17 15:00 80 26 125/81 99 Venturi Mask 60 10/25/17 14:00 80 20 131/77 99 Venturi Mask 60 10/25/17 13:30 82 20 99 Venturi Mask 60 10/25/17 13:15 73 24 98 Venturi Mask 12.0 60 10/25/17 13:00 75 25 147/90 100 Venturi Mask 60 10/25/17 12:00 75 10/25/17 12:00 99.2 76 25 135/84 96 Venturi Mask 60 10/25/17 11:00 79 20 138/82 98 Venturi Mask 60 10/25/17 10:00 87 23 129/81 98 Venturi Mask 60 Height (Feet): 5 Height (Inches): 4.00 Weight (Pounds): 356 Objective HEENT: atraumatic, normocephalic, other - Venturi Mask in place Lungs: rhonchi - scattered anterior Heart: RRR Abdomen: soft, non-tender, active bowel sounds Extremities: no C/C/E Genitalia:Scrotal edema, improved Microbiology Date/Time Source Procedure Growth Status 10/24/17 11:00 Sputum Gram Stain - Final Resulted 10/24/17 11:00 Sputum Sputum Culture - Preliminary Resulted Laboratory Tests Test 10/25/17 10:40 10/26/17 04:00 10/26/17 05:00 Arterial Blood pH 7.439 (7.350-7.450) 7.438 (7.350-7.450) Arterial Blood Partial Pressure CO2 47.2 mmHg (35.0-45.0) H 46.4 mmHg (35.0-45.0) H Arterial Blood Partial Pressure O2 94.8 mmHg (75.0-100.0) 68.2 mmHg (75.0-100.0) L Arterial Blood HCO3 31.3 mmol/L (22.0-26.0) H 30.7 mmol/L (22.0-26.0) H Arterial Blood Oxygen Saturation 96.9 % (92.0-98.0) 93.5 % (92.0-98.0) Arterial Blood Base Excess 6.1 5.6 Naif Test Positive Positive White Blood Count 16.5 K/UL (4.8-10.8) H Red Blood Count 7.29 M/UL (4.70-6.10) H Hemoglobin 13.7 G/DL (14.2-18.0) L Hematocrit 47.9 % (42.0-52.0) Mean Corpuscular Volume 66 FL (80-99) L Mean Corpuscular Hemoglobin 18.8 PG (27.0-31.0) L Mean Corpuscular Hemoglobin Concent 28.6 G/DL (32.0-36.0) L Red Cell Distribution Width 21.4 % (11.6-14.8) H Platelet Count 299 K/UL (150-450) Mean Platelet Volume 9.6 FL (6.5-10.1) Neutrophils (%) (Auto) % (45.0-75.0) Lymphocytes (%) (Auto) % (20.0-45.0) Monocytes (%) (Auto) % (1.0-10.0) Eosinophils (%) (Auto) % (0.0-3.0) Basophils (%) (Auto) % (0.0-2.0) Differential Total Cells Counted 100 Neutrophils % (Manual) 92 % (45-75) H Lymphocytes % (Manual) 1 % (20-45) L Monocytes % (Manual) 7 % (1-10) Eosinophils % (Manual) 0 % (0-3) Basophils % (Manual) 0 % (0-2) Band Neutrophils 0 % (0-8) Platelet Estimate Adequate Platelet Morphology Normal Hypochromasia 1+ Anisocytosis 2+ Microcytosis 2+ Sodium Level 139 MMOL/L (136-145) Potassium Level 4.4 MMOL/L (3.5-5.1) Chloride Level 103 MMOL/L (98-107) Carbon Dioxide Level 33 MMOL/L (21-32) H Anion Gap 3 mmol/L (5-15) L Blood Urea Nitrogen 32 mg/dL (7-18) H Creatinine 1.0 MG/DL (0.55-1.30) Estimat Glomerular Filtration Rate > 60 mL/min (>60) Glucose Level 113 MG/DL (74-106) H Calcium Level 8.0 MG/DL (8.5-10.1) L Current Medications Medications (Trade) Dose Ordered Sig/Prince Route PRN Reason Start Time Stop Time Status Last Admin Dose Admin Acetaminophen (Tylenol) 650 mg EVERY 4 HOURS PRN NG Mild Pain/Temp > 100.5 10/09/17 10:15 11/08/17 10:14 10/20/17 23:58 Acetylcysteine (Mucomyst) 200 mg Q6HRT HHN 10/15/17 13:00 11/14/17 12:59 10/26/17 06:36 Albuterol/ Ipratropium (Albuterol/ Ipratropium) 3 ml Q4H PRN HHN Shortness of Breath 10/26/17 12:00 10/31/17 11:59 Chlorhexidine Gluconate (Sol-Hex 2%) 1 applic DAILY@1999 TOPIC 10/09/17 20:00 11/08/17 19:59 10/25/17 20:09 Dextrose (Dextrose 50%) STAT PRN IV Hypoglycemia 10/12/17 11:00 11/11/17 10:59 Docusate Sodium (Colace) 100 mg BID GT 10/13/17 17:00 11/12/17 16:59 10/26/17 08:54 Fentanyl Citrate 2500 mcg/Sodium Chloride 250 ml @ 0 mls/hr Q24H IV 10/20/17 15:30 10/27/17 15:29 10/24/17 01:47 Fluconazole/ Sodium Chloride 200 ml @ 100 mls/hr Q24H IV 10/25/17 11:00 11/01/17 10:59 10/25/17 10:41 Furosemide (Lasix) 20 mg ONCE ONCE IV 10/26/17 10:00 10/26/17 10:01 Haloperidol Lactate 5 mg/ Dextrose 56 ml @ 224 mls/hr Q1H PRN IVPB BREAKTHROUGH AGITATION 10/08/17 17:00 11/07/17 16:59 10/24/17 02:15 Heparin Sodium (Porcine) (Heparin 5000 units/ml) 5,000 units DAILY SUBQ 10/08/17 11:00 11/07/17 10:59 10/26/17 08:56 Insulin Aspart (NovoLOG) BEFORE MEALS AND HS SUBQ 10/12/17 11:30 11/11/17 11:29 10/25/17 17:10 Magnesium Hydroxide (Mom) 30 ml DAILYPRN PRN GT Constipation 10/13/17 16:30 11/12/17 16:29 10/21/17 20:44 Meropenem 1 gm/ Sodium Chloride 110 ml @ 220 mls/hr Q8HR@0200,1200,2000 IVPB 10/25/17 12:00 10/30/17 11:59 10/26/17 01:51 Methylprednisolone Sodium Succinate (Solu-MEDROL) 20 mg Q12HR IVP 10/22/17 21:00 11/21/17 20:59 10/26/17 08:54 Pantoprazole (Protonix) 40 mg DAILY IV 10/07/17 11:00 11/06/17 10:59 10/26/17 08:54 Vancomycin HCl (Vanco rx to dose) 1 ea DAILY PRN MISC Per rx protocol 10/20/17 11:15 11/19/17 11:14 Vancomycin HCl 1.75 gm/Dextrose 325 ml @ 162.5 mls/ hr Q24H IVPB 10/25/17 08:00 10/30/17 07:59 10/26/17 08:29 Evelin Lam M.D. Oct 26, 2017 09:47
[2017-10-26] MEDS ORDERED: Haloperidol Lactate 5 MG in D5W 55 ML IVPB PRN ×4 (11:00)
[2017-10-26] MEDS ORDERED: NovoLOG Insulin Flexpen SUBQ SCH (11:30)
--- NOTE | 2017-10-26 11:49 | Nephrology Progress Note ---
Assessment/Plan Problem List: (1) Acute respiratory failure Assessment: self extubated 10/24 (2) Acute renal failure Assessment: with previous urinary out let obstruction Assessment Cr stable- s/p Acute renal failure- Cr WNL Acute Respiratory distress , ? aspiration pneumonia, intubated ARDS Acute Pulmonary edema Anasarca scotal cellutis Morbid obesity. Thrombocytopenia. Abnormal blood sugar. Anemia. Plan Plan: per consultants K and Mag supplement as needed Keep BP in check pulm support avoid nephrotoxics monitor renal parameters per consultants / pulmonary per orders Left ventricular ejection fraction estimated to be grossly normal. Mild left ventricular hypertrophy. Subjective ROS Limited/Unobtainable: No Constitutional: Reports: malaise, weakness Objective Objective Last 24 Hour Vital Signs Date Time Temp Pulse Resp B/P (MAP) Pulse Ox O2 Delivery O2 Flow Rate FiO2 10/26/17 10:00 82 23 113/89 96 Venturi Mask 60 10/26/17 09:00 84 25 119/74 96 Venturi Mask 60 10/26/17 08:00 91 10/26/17 08:00 98.4 93 24 126/74 95 Venturi Mask 60 10/26/17 07:04 89 25 98 Venturi Mask 9.0 50 10/26/17 07:00 93 24 138/79 96 Venturi Mask 60 10/26/17 06:38 81 17 98 Venturi Mask 9.0 50 10/26/17 06:38 98 Venturi Mask 9.0 50 10/26/17 06:38 Venturi Mask 9.0 50 10/26/17 06:00 79 22 141/98 99 Venturi Mask 60 10/26/17 05:00 85 25 144/84 99 Venturi Mask 60 10/26/17 04:00 98.9 83 25 131/88 98 Venturi Mask 60 10/26/17 04:00 83 10/26/17 03:00 84 22 130/80 95 Venturi Mask 60 10/26/17 02:00 88 22 147/89 96 Venturi Mask 60 10/26/17 01:00 83 24 138/87 99 Venturi Mask 60 10/26/17 00:52 85 22 99 Venturi Mask 60 10/26/17 00:45 95 Venturi Mask 12.0 60 10/26/17 00:45 Venturi Mask 12.0 60 10/26/17 00:45 84 23 97 Venturi Mask 12.0 60 10/26/17 00:00 77 10/26/17 00:00 99.0 77 23 152/89 98 Venturi Mask 60 10/25/17 23:00 83 26 150/81 97 Venturi Mask 60 10/25/17 22:00 87 22 144/84 97 Venturi Mask 60 10/25/17 21:00 87 26 117/82 97 Venturi Mask 60 10/25/17 20:02 85 10/25/17 20:00 98.3 94 26 115/73 94 Venturi Mask 60 10/25/17 19:00 83 22 134/81 96 Venturi Mask 60 10/25/17 18:50 83 22 99 Venturi Mask 60 10/25/17 18:50 97 Venturi Mask 12.0 60 10/25/17 18:50 Venturi Mask 12.0 60 10/25/17 18:40 77 23 98 Venturi Mask 12.0 60 10/25/17 18:00 73 22 122/67 96 Venturi Mask 60 10/25/17 17:00 76 18 126/78 98 Venturi Mask 60 10/25/17 16:00 89 10/25/17 16:00 99.0 82 19 122/78 97 Venturi Mask 60 10/25/17 15:00 80 26 125/81 99 Venturi Mask 60 10/25/17 14:00 80 20 131/77 99 Venturi Mask 60 10/25/17 13:30 82 20 99 Venturi Mask 60 10/25/17 13:15 73 24 98 Venturi Mask 12.0 60 10/25/17 13:00 75 25 147/90 100 Venturi Mask 60 10/25/17 12:00 75 10/25/17 12:00 99.2 76 25 135/84 96 Venturi Mask 60 Intake and Output 10/25/17 10/26/17 19:00 07:00 Intake Total 833.535 ml 220 ml Output Total 3331 ml 2200 ml Balance -2497.465 ml -1980 ml IV Total 833.535 ml 220 ml Output Urine Total 3330 ml 2200 ml Stool Total 1 ml # Bowel Movements 2 Laboratory Tests 10/26/17 04:00: Arterial Blood pH 7.438, Arterial Blood Partial Pressure CO2 46.4H, Arterial Blood Partial Pressure O2 68.2L, Arterial Blood HCO3 30.7H, Arterial Blood Oxygen Saturation 93.5, Arterial Blood Base Excess 5.6, Naif Test Positive 10/26/17 05:00: White Blood Count 16.5H, Red Blood Count 7.29H, Hemoglobin 13.7L, Hematocrit 47.9, Mean Corpuscular Volume 66L, Mean Corpuscular Hemoglobin 18.8L, Mean Corpuscular Hemoglobin Concent 28.6L, Red Cell Distribution Width 21.4H, Platelet Count 299, Mean Platelet Volume 9.6, Neutrophils (%) (Auto) , Lymphocytes (%) (Auto) , Monocytes (%) (Auto) , Eosinophils (%) (Auto) , Basophils (%) (Auto) , Differential Total Cells Counted 100, Neutrophils % ( Manual) 92H, Lymphocytes % (Manual) 1L, Monocytes % (Manual) 7, Eosinophils % ( Manual) 0, Basophils % (Manual) 0, Band Neutrophils 0, Platelet Estimate Adequate, Platelet Morphology Normal, Hypochromasia 1+, Anisocytosis 2+, Microcytosis 2+, Sodium Level 139, Potassium Level 4.4, Chloride Level 103, Carbon Dioxide Level 33H, Anion Gap 3L, Blood Urea Nitrogen 32H, Creatinine 1.0 , Estimat Glomerular Filtration Rate > 60, Glucose Level 113H, Calcium Level 8.0L Height (Feet): 5 Height (Inches): 4.00 Weight (Pounds): 356 General Appearance: no apparent distress Objective no other change JAY YANCEY Oct 26, 2017 11:49
[2017-10-26] MEDS ORDERED: Albuterol/Ipratropium 3ml neb HHN PRN ×2 (12:00)
[2017-10-26] MEDS ORDERED: Meropenem 1 GM in NS 110 ML IVPB SCH (12:00)
[2017-10-26] MEDS ORDERED: Acetylcysteine 20% Soln 4ml HHN SCH (13:00)
[2017-10-26] MEDS ORDERED: Acetaminophen 650mg/20.3ml NG PRN (13:00)
[2017-10-26] MEDS ORDERED: Milk of Magnesia 30ml Ud GT PRN ×2 (16:30)
[2017-10-26] MEDS ORDERED: Docusate 100mg/10ml Liq GT SCH (18:00)
[2017-10-26] MEDS ORDERED: Dyna-Hex 2% Top Sol 2oz TOPIC SCH (20:00)
[2017-10-26] MEDS: Dyna-Hex 2% Top Sol 2oz TOPIC SCH (20:40)
[2017-10-26] MEDS ORDERED: Solu-MEDROL 40mg Inj IVP SCH (21:00)
[2017-10-27] VITALS: BP 127/76
[2017-10-27] MEDS: Acetylcysteine 20% Soln 4ml HHN SCH ×4 (00:11→19:33)
[2017-10-27] MEDS: Meropenem 1 GM in NS 110 ML IVPB SCH (01:28)
[2017-10-27 04:00] VITALS: BP 137/85
[2017-10-27 04:51] LABS: HEMATOCRIT 46.8 % (42.0-52.0); HEMOGLOBIN 13.8 G/DL (14.2-18.0); MEAN CORPUSCULAR VOLUME 66 FL (80-99); PLATELET COUNT 289 K/UL (150-450); RED BLOOD COUNT 7.05 M/UL (4.70-6.10); RED CELL DISTRIBUTION WIDTH 21.2 % (11.6-14.8); WHITE BLOOD COUNT 15.2 K/UL (4.8-10.8)
[2017-10-27 05:15] LABS: ANION GAP 8 mmol/L (5-15); BLOOD UREA NITROGEN 39 mg/dL (7-18); CALCIUM 8.1 MG/DL (8.5-10.1); CARBON DIOXIDE 27 MMOL/L (21-32); CHLORIDE 104 MMOL/L (98-107); POTASSIUM 4.5 MMOL/L (3.5-5.1); SODIUM 139 MMOL/L (136-145)
[2017-10-27] MEDS: NovoLOG Insulin Flexpen SUBQ SCH ×4 (05:53→20:52)
[2017-10-27 08:00] VITALS: BP 123/72
[2017-10-27] MEDS ORDERED: D5W IVPB SCH (08:00)
[2017-10-27] MEDS ORDERED: VANCOMYCIN IVPB SCH (08:00)
--- NOTE | 2017-10-27 08:19 | Infectious Diseases Prog Note ---
Assessment/Plan Assessment/Plan ASSESSMENT: The patient is a 42-year-old male with, Possible aspiration pneumonia versus community-acquired pneumonia. Scx : P mirabilis -r/o fungal PNA -sp cx 10/24 normal bandar -BAL cx 10/18 neg 10/25 CXR: Stable or perhaps slightly improved diffuse bilateral interstitial and airspace edema versus infiltrates, over one day 10/13 C-Xray worsening of infiltrate vs edema -cocci ID neg, Cocci CF unable to obtain given presence of anticomplementary activity -histo ag urine p Leukocytosis ( on steroids ) -improving 10/21 u/a neg,ucx NTD, BCx NTD Fever ( after self extubation ) resolved Probable scrotal cellulitis versus discoloration of genitalia due to edema; improved CRP 09/15 >>4.3 10/24 HIV , Crypt, Aspergillus ab : neg U leg Ab and Ag: neg ARDS CORA improving PICC 10/09 VDRF self extub and reintubated 10/19; extubated 10/24 Congestive heart failure. PLAN: D/c Diflucan d# 10 as neg cocci serologies , and continue empiric Vanco d# 8/10 10/27 Meropenem #14 10/17 sp vancomycin and Doxy d# 10 / 10 10/13 sp Zosyn d# 5 Monitor CBC/CMP Monitor cultures ( blood ) Continue vent support. Monitor chest x-ray Histo :P Fungitell Subjective Allergies: Coded Allergies: No Known Allergies (Unverified , 10/06/17) Subjective afebrile remains on VM, Fio2 50% leukocytosis improving cocci serologies negative Objective Vital Signs Last 24 Hour Vital Signs Date Time Temp Pulse Resp B/P (MAP) Pulse Ox O2 Delivery O2 Flow Rate FiO2 10/27/17 04:00 84 10/27/17 04:00 97.9 82 16 137/85 98 Nasal Cannula 4.0 10/27/17 01:45 Nasal Cannula 4.0 36 10/27/17 00:12 T-piece 12.0 50 10/27/17 00:12 T-piece 10/27/17 00:00 84 10/27/17 00:00 98.2 82 18 127/76 99 Nasal Cannula 4.0 10/26/17 20:00 97 10/26/17 20:00 98.2 95 27 124/78 95 Nasal Cannula 4.0 10/26/17 19:32 85 26 98 T-piece 12.0 50 10/26/17 19:25 87 29 94 Nasal Cannula 4.0 36 10/26/17 19:03 Nasal Cannula 4.0 36 10/26/17 19:03 94 Nasal Cannula 4.0 36 10/26/17 16:28 88 10/26/17 16:00 99.3 91 22 138/81 95 Nasal Cannula 4.0 10/26/17 13:26 82 26 95 Nasal Cannula 4.0 36 10/26/17 13:03 85 26 95 Venturi Mask 9.0 50 10/26/17 13:03 95 9.0 50 10/26/17 13:03 Venturi Mask 9.0 50 10/26/17 12:45 97.3 81 26 140/94 98 Venturi Mask 60 10/26/17 12:00 86 10/26/17 10:00 82 23 113/89 96 Venturi Mask 60 10/26/17 09:00 84 25 119/74 96 Venturi Mask 60 Height (Feet): 5 Height (Inches): 4.00 Weight (Pounds): 356 Objective HEENT: atraumatic, normocephalic, other - Venturi Mask in place Lungs: rhonchi - scattered anterior Heart: RRR Abdomen: soft, non-tender, active bowel sounds Extremities: no C/C/E Genitalia:Scrotal edema, improved Microbiology Date/Time Source Procedure Growth Status 10/24/17 11:00 Sputum Gram Stain - Final Complete 10/24/17 11:00 Sputum Culture - Final Usual Upper Respiratory Bandar Complete Laboratory Tests Test 10/27/17 04:00 White Blood Count 15.2 K/UL (4.8-10.8) H Red Blood Count 7.05 M/UL (4.70-6.10) H Hemoglobin 13.8 G/DL (14.2-18.0) L Hematocrit 46.8 % (42.0-52.0) Mean Corpuscular Volume 66 FL (80-99) L Mean Corpuscular Hemoglobin 19.5 PG (27.0-31.0) L Mean Corpuscular Hemoglobin Concent 29.4 G/DL (32.0-36.0) L Red Cell Distribution Width 21.2 % (11.6-14.8) H Platelet Count 289 K/UL (150-450) Mean Platelet Volume 9.6 FL (6.5-10.1) Neutrophils (%) (Auto) % (45.0-75.0) Lymphocytes (%) (Auto) % (20.0-45.0) Monocytes (%) (Auto) % (1.0-10.0) Eosinophils (%) (Auto) % (0.0-3.0) Basophils (%) (Auto) % (0.0-2.0) Differential Total Cells Counted 100 Neutrophils % (Manual) 94 % (45-75) H Lymphocytes % (Manual) 3 % (20-45) L Monocytes % (Manual) 3 % (1-10) Eosinophils % (Manual) 0 % (0-3) Basophils % (Manual) 0 % (0-2) Band Neutrophils 0 % (0-8) Platelet Estimate Adequate Platelet Morphology Normal Sodium Level 139 MMOL/L (136-145) Potassium Level 4.5 MMOL/L (3.5-5.1) Chloride Level 104 MMOL/L (98-107) Carbon Dioxide Level 27 MMOL/L (21-32) Anion Gap 8 mmol/L (5-15) Blood Urea Nitrogen 39 mg/dL (7-18) H Creatinine 1.0 MG/DL (0.55-1.30) Estimat Glomerular Filtration Rate > 60 mL/min (>60) Glucose Level 147 MG/DL (74-106) H Calcium Level 8.1 MG/DL (8.5-10.1) L Pro-B-Type Natriuretic Peptide 638 pg/mL (0-125) H Current Medications Medications (Trade) Dose Ordered Sig/Prince Route PRN Reason Start Time Stop Time Status Last Admin Dose Admin Acetaminophen (Tylenol) 650 mg EVERY 4 HOURS PRN NG Mild Pain/Temp > 100.5 10/26/17 13:00 11/08/17 10:14 Acetylcysteine (Mucomyst) 200 mg Q6HRT HHN 10/26/17 13:00 11/14/17 12:59 10/26/17 19:25 Albuterol/ Ipratropium (Albuterol/ Ipratropium) 3 ml Q4H PRN HHN Shortness of Breath 10/26/17 12:00 10/31/17 11:59 10/26/17 19:25 Chlorhexidine Gluconate (Sol-Hex 2%) 1 applic DAILY@2000 TOPIC 10/26/17 20:00 11/08/17 19:59 10/26/17 20:40 Dextrose (Dextrose 50%) STAT PRN IV Hypoglycemia 10/26/17 11:00 11/11/17 10:59 Docusate Sodium (Colace) 100 mg BID GT 10/26/17 18:00 11/12/17 16:59 Fluconazole/ Sodium Chloride 200 ml @ 100 mls/hr Q24H IV 10/26/17 11:00 11/01/17 10:59 10/26/17 11:20 Haloperidol Lactate 5 mg/ Dextrose 56 ml @ 224 mls/hr Q1H PRN IVPB BREAKTHROUGH AGITATION 10/26/17 11:00 11/07/17 16:59 Heparin Sodium (Porcine) (Heparin 5000 units/ml) 5,000 units DAILY SUBQ 10/27/17 09:00 11/07/17 10:59 Insulin Aspart (NovoLOG) BEFORE MEALS AND HS SUBQ 10/26/17 11:30 11/11/17 11:29 10/27/17 05:53 Magnesium Hydroxide (Mom) 30 ml DAILYPRN PRN GT Constipation 10/26/17 16:30 11/12/17 16:29 Meropenem 1 gm/ Sodium Chloride 110 ml @ 220 mls/hr Q8HR@0200,1200,2000 IVPB 10/26/17 12:00 10/30/17 11:59 10/27/17 01:28 Methylprednisolone Sodium Succinate (Solu-MEDROL) 20 mg Q12HR IVP 10/26/17 21:00 11/21/17 20:59 10/26/17 21:48 Pantoprazole (Protonix) 40 mg DAILY IV 10/27/17 09:00 11/06/17 10:59 Vancomycin HCl (Vanco rx to dose) 1 ea DAILY PRN MISC Per rx protocol 10/27/17 09:00 11/19/17 11:14 Vancomycin HCl 1.75 gm/Dextrose 325 ml @ 162.5 mls/ hr Q24H IVPB 10/27/17 08:00 10/30/17 07:59 Evelin Lam M.D. Oct 27, 2017 08:19
[2017-10-27] MEDS ORDERED: Heparin 5000 units/ml inj SUBQ SCH (09:00)
[2017-10-27] MEDS ORDERED: Pantoprazole Inj IV SCH (09:00)
--- NOTE | 2017-10-27 09:32 | Diagnostic Imaging Report ---
Indication: Shortness of breath Technique: XRAY Chest 1v Comparison: 10/25/2017 Findings: Heart size and mediastinal contours are stable. Right arm PICC line unchanged. Persistent interstitial opacification/edema, slightly improved. There is improved aeration of the right lower lung with some persistent patchy opacity at the right base. No large pleural effusion. No definite pneumothorax. No acute osseous abnormality. Impression: Overall improved aeration with decrease in interstitial opacification/edema and decrease in right lower lung patchy airspace opacities. Some right lower lung opacities persist.
[2017-10-27] MEDS: Solu-MEDROL 40mg Inj IVP SCH ×2 (10:04→20:50)
[2017-10-27] MEDS: Docusate 100mg/10ml Liq GT SCH ×2 (10:04→18:35)
[2017-10-27] MEDS: Pantoprazole Inj IV SCH (10:04)
[2017-10-27] MEDS: Heparin 5000 units/ml inj SUBQ SCH (10:07)
[2017-10-27] MEDS: D5W IVPB SCH (10:52)
[2017-10-27] MEDS: VANCOMYCIN IVPB SCH (10:52)
--- NOTE | 2017-10-27 12:13 | General Surgery Progress Note ---
General Surgery-Progress Note Subjective Symptoms: improved Additional Comments downgraded from ICU. doing well. Objective Last 24 Hour Vital Signs Date Time Temp Pulse Resp B/P (MAP) Pulse Ox O2 Delivery O2 Flow Rate FiO2 10/27/17 09:05 78 Nasal Cannula 4.0 36 10/27/17 09:05 79 20 98 Nasal Cannula 4.0 36 10/27/17 09:05 78 20 97 Nasal Cannula 4.0 36 10/27/17 09:05 Nasal Cannula 4.0 36 10/27/17 08:00 97 10/27/17 04:00 84 10/27/17 04:00 97.9 82 16 137/85 98 Nasal Cannula 4.0 10/27/17 01:45 Nasal Cannula 4.0 36 10/27/17 00:12 T-piece 12.0 50 10/27/17 00:12 T-piece 10/27/17 00:00 84 10/27/17 00:00 98.2 82 18 127/76 99 Nasal Cannula 4.0 10/26/17 20:00 97 10/26/17 20:00 98.2 95 27 124/78 95 Nasal Cannula 4.0 10/26/17 19:32 85 26 98 T-piece 12.0 50 10/26/17 19:25 87 29 94 Nasal Cannula 4.0 36 10/26/17 19:03 Nasal Cannula 4.0 36 10/26/17 19:03 94 Nasal Cannula 4.0 36 10/26/17 16:28 88 10/26/17 16:00 99.3 91 22 138/81 95 Nasal Cannula 4.0 10/26/17 13:26 82 26 95 Nasal Cannula 4.0 36 10/26/17 13:03 85 26 95 Venturi Mask 9.0 50 10/26/17 13:03 95 9.0 50 10/26/17 13:03 Venturi Mask 9.0 50 10/26/17 12:45 97.3 81 26 140/94 98 Venturi Mask 60 I&O Intake and Output 10/26/17 10/27/17 19:00 07:00 Intake Total 100 ml 440 ml Output Total 2625 ml 1400 ml Balance -2525 ml -960 ml Intake Oral 100 ml IV Total 440 ml Output Urine Total 2625 ml 1400 ml # Bowel Movements 1 Cardiovascular: RSR Respiratory: decreased breath sounds Abdomen: soft, non-tender, other - very obese Extremities: no tenderness Laboratory Tests Test 10/27/17 04:00 10/27/17 09:28 White Blood Count 15.2 K/UL (4.8-10.8) H Red Blood Count 7.05 M/UL (4.70-6.10) H Hemoglobin 13.8 G/DL (14.2-18.0) L Hematocrit 46.8 % (42.0-52.0) Mean Corpuscular Volume 66 FL (80-99) L Mean Corpuscular Hemoglobin 19.5 PG (27.0-31.0) L Mean Corpuscular Hemoglobin Concent 29.4 G/DL (32.0-36.0) L Red Cell Distribution Width 21.2 % (11.6-14.8) H Platelet Count 289 K/UL (150-450) Mean Platelet Volume 9.6 FL (6.5-10.1) Neutrophils (%) (Auto) % (45.0-75.0) Lymphocytes (%) (Auto) % (20.0-45.0) Monocytes (%) (Auto) % (1.0-10.0) Eosinophils (%) (Auto) % (0.0-3.0) Basophils (%) (Auto) % (0.0-2.0) Differential Total Cells Counted 100 Neutrophils % (Manual) 94 % (45-75) H Lymphocytes % (Manual) 3 % (20-45) L Monocytes % (Manual) 3 % (1-10) Eosinophils % (Manual) 0 % (0-3) Basophils % (Manual) 0 % (0-2) Band Neutrophils 0 % (0-8) Platelet Estimate Adequate Platelet Morphology Normal Sodium Level 139 MMOL/L (136-145) Potassium Level 4.5 MMOL/L (3.5-5.1) Chloride Level 104 MMOL/L (98-107) Carbon Dioxide Level 27 MMOL/L (21-32) Anion Gap 8 mmol/L (5-15) Blood Urea Nitrogen 39 mg/dL (7-18) H Creatinine 1.0 MG/DL (0.55-1.30) Estimat Glomerular Filtration Rate > 60 mL/min (>60) Glucose Level 147 MG/DL (74-106) H Calcium Level 8.1 MG/DL (8.5-10.1) L Pro-B-Type Natriuretic Peptide 638 pg/mL (0-125) H Arterial Blood pH 7.461 (7.350-7.450) Arterial Blood Partial Pressure CO2 40.4 mmHg (35.0-45.0) Arterial Blood Partial Pressure O2 77.7 mmHg (75.0-100.0) Arterial Blood HCO3 28.2 mmol/L (22.0-26.0) H Arterial Blood Oxygen Saturation 95.2 % (92.0-98.0) Arterial Blood Base Excess 4.1 Naif Test Positive Plan Problems: (1) Respiratory distress (2) Acute respiratory failure Assessment & Plan: continues to improve. no signs of acute respiratory insufficiency again and with good pulmonary toilet has been improving. if does decompensate again would recommend trach but for now doing so well i dont think that will be necessary. Rebel Rios Oct 27, 2017 12:13
[2017-10-27 12:23] VITALS: BP 131/80
--- NOTE | 2017-10-27 15:18 | Nephrology Progress Note ---
Assessment/Plan Problem List: (1) Acute respiratory failure Assessment: self extubated 10/24 (2) Acute renal failure Assessment: with previous urinary out let obstruction Assessment Cr stable- s/p Acute renal failure- Cr WNL Acute Respiratory distress , ? aspiration pneumonia, intubated ARDS Acute Pulmonary edema Anasarca scotal cellutis Morbid obesity. Thrombocytopenia. Abnormal blood sugar. Anemia. Plan Plan: per consultants K and Mag supplement as needed Keep BP in check pulm support avoid nephrotoxics monitor renal parameters per consultants / pulmonary per orders Left ventricular ejection fraction estimated to be grossly normal. Mild left ventricular hypertrophy. Subjective ROS Limited/Unobtainable: No Objective Objective Last 24 Hour Vital Signs Date Time Temp Pulse Resp B/P (MAP) Pulse Ox O2 Delivery O2 Flow Rate FiO2 10/27/17 13:20 81 20 98 Nasal Cannula 4.0 36 10/27/17 13:15 81 20 98 Nasal Cannula 4.0 36 10/27/17 12:23 98.4 79 18 131/80 95 Nasal Cannula 4.0 10/27/17 09:05 78 Nasal Cannula 4.0 36 10/27/17 09:05 79 20 98 Nasal Cannula 4.0 36 10/27/17 09:05 78 20 97 Nasal Cannula 4.0 36 10/27/17 09:05 Nasal Cannula 4.0 36 10/27/17 08:00 98.5 80 18 123/72 95 Nasal Cannula 4.0 10/27/17 08:00 97 10/27/17 04:00 84 10/27/17 04:00 97.9 82 16 137/85 98 Nasal Cannula 4.0 10/27/17 01:45 Nasal Cannula 4.0 36 10/27/17 00:12 T-piece 12.0 50 10/27/17 00:12 T-piece 10/27/17 00:00 84 10/27/17 00:00 98.2 82 18 127/76 99 Nasal Cannula 4.0 10/26/17 20:00 97 10/26/17 20:00 98.2 95 27 124/78 95 Nasal Cannula 4.0 10/26/17 19:32 85 26 98 T-piece 12.0 50 10/26/17 19:25 87 29 94 Nasal Cannula 4.0 36 10/26/17 19:03 Nasal Cannula 4.0 36 10/26/17 19:03 94 Nasal Cannula 4.0 36 10/26/17 16:28 88 10/26/17 16:00 99.3 91 22 138/81 95 Nasal Cannula 4.0 Intake and Output 10/26/17 10/27/17 19:00 07:00 Intake Total 100 ml 440 ml Output Total 2625 ml 1400 ml Balance -2525 ml -960 ml Intake Oral 100 ml IV Total 440 ml Output Urine Total 2625 ml 1400 ml # Bowel Movements 1 Laboratory Tests 10/27/17 04:00: White Blood Count 15.2H, Red Blood Count 7.05H, Hemoglobin 13.8L, Hematocrit 46.8, Mean Corpuscular Volume 66L, Mean Corpuscular Hemoglobin 19.5L, Mean Corpuscular Hemoglobin Concent 29.4L, Red Cell Distribution Width 21.2H, Platelet Count 289, Mean Platelet Volume 9.6, Neutrophils (%) (Auto) , Lymphocytes (%) (Auto) , Monocytes (%) (Auto) , Eosinophils (%) (Auto) , Basophils (%) (Auto) , Differential Total Cells Counted 100, Neutrophils % ( Manual) 94H, Lymphocytes % (Manual) 3L, Monocytes % (Manual) 3, Eosinophils % ( Manual) 0, Basophils % (Manual) 0, Band Neutrophils 0, Platelet Estimate Adequate, Platelet Morphology Normal, Sodium Level 139, Potassium Level 4.5, Chloride Level 104, Carbon Dioxide Level 27, Anion Gap 8, Blood Urea Nitrogen 39H, Creatinine 1.0, Estimat Glomerular Filtration Rate > 60, Glucose Level 147H , Calcium Level 8.1L, Pro-B-Type Natriuretic Peptide 638H 10/27/17 09:28: Arterial Blood pH 7.461H, Arterial Blood Partial Pressure CO2 40.4, Arterial Blood Partial Pressure O2 77.7, Arterial Blood HCO3 28.2H, Arterial Blood Oxygen Saturation 95.2, Arterial Blood Base Excess 4.1, Naif Test Positive Height (Feet): 5 Height (Inches): 4.00 Weight (Pounds): 356 General Appearance: no apparent distress Objective no other change JAY YANCEY Oct 27, 2017 15:18
[2017-10-27 16:00] VITALS: BP 137/80
[2017-10-27 20:00] VITALS: BP 137/87
[2017-10-27] MEDS: Dyna-Hex 2% Top Sol 2oz TOPIC SCH (20:43)
[2017-10-28] VITALS: BP 135/90
[2017-10-28] MEDS: Acetylcysteine 20% Soln 4ml HHN SCH ×4 (01:04→18:48)
[2017-10-28] MEDS: Albuterol/Ipratropium 3ml neb HHN PRN ×4 (01:04→18:48)
[2017-10-28 04:00] VITALS: BP 139/70
[2017-10-28] MEDS: NovoLOG Insulin Flexpen SUBQ SCH ×4 (06:08→20:50)
[2017-10-28 08:00] VITALS: BP 140/81
[2017-10-28] MEDS: D5W IVPB SCH (09:35)
[2017-10-28] MEDS: VANCOMYCIN IVPB SCH (09:35)
[2017-10-28] MEDS: Pantoprazole Inj IV SCH (09:51)
[2017-10-28] MEDS: Docusate 100mg/10ml Liq GT SCH ×2 (09:51→17:46)
[2017-10-28] MEDS: Solu-MEDROL 40mg Inj IVP SCH ×2 (09:52→20:47)
[2017-10-28] MEDS: Heparin 5000 units/ml inj SUBQ SCH (09:53)
--- NOTE | 2017-10-28 11:02 | Nephrology Progress Note ---
Assessment/Plan Problem List: (1) Acute respiratory failure Assessment: self extubated 10/24 (2) Acute renal failure Assessment: with previous urinary out let obstruction Assessment Cr stable- s/p Acute renal failure- Cr WNL Acute Respiratory distress , ? aspiration pneumonia, intubated ARDS Now extubated and doing well s/p Acute Pulmonary edema scotal cellutis Morbid obesity. Thrombocytopenia. Abnormal blood sugar. Anemia. Plan Plan: per consultants K and Mag supplement as needed Keep BP in check monitor renal parameters per consultants / pulmonary per orders Left ventricular ejection fraction estimated to be grossly normal. Mild left ventricular hypertrophy. Subjective ROS Limited/Unobtainable: No Constitutional: Reports: other - doing great Objective Objective Last 24 Hour Vital Signs Date Time Temp Pulse Resp B/P (MAP) Pulse Ox O2 Delivery O2 Flow Rate FiO2 10/28/17 08:39 65 22 99 Nasal Cannula 4.0 10/28/17 08:36 82 16 95 Nasal Cannula 4.0 10/28/17 08:35 Nasal Cannula 4.0 10/28/17 08:34 95 Nasal Cannula 4.0 10/28/17 08:00 86 10/28/17 08:00 98.5 88 18 140/81 97 Nasal Cannula 4.0 10/28/17 04:00 86 10/28/17 04:00 98.0 74 22 139/70 95 Nasal Cannula 4.0 10/28/17 01:19 84 20 99 Nasal Cannula 4.0 36 10/28/17 01:04 85 98 Nasal Cannula 4.0 36 10/28/17 00:00 82 10/28/17 00:00 97.7 80 18 135/90 95 Nasal Cannula 4.0 10/27/17 20:00 98.2 78 20 137/87 97 Nasal Cannula 4.0 10/27/17 20:00 77 10/27/17 19:49 85 20 99 Nasal Cannula 4.0 36 10/27/17 19:34 Nasal Cannula 4.0 36 10/27/17 19:34 80 20 99 Nasal Cannula 4.0 36 10/27/17 19:33 80 Nasal Cannula 4.0 36 10/27/17 16:00 86 10/27/17 16:00 99.9 78 20 137/80 97 Nasal Cannula 4.0 10/27/17 13:20 81 20 98 Nasal Cannula 4.0 36 10/27/17 13:15 81 20 98 Nasal Cannula 4.0 36 10/27/17 12:33 87 10/27/17 12:23 98.4 79 18 131/80 95 Nasal Cannula 4.0 Intake and Output 10/27/17 10/28/17 19:00 07:00 Intake Total 750 ml Output Total 1700 ml 950 ml Balance -950 ml -950 ml Intake Oral 750 ml Output Urine Total 1700 ml 950 ml # Bowel Movements 1 2 Laboratory Tests 10/28/17 06:30: Vancomycin Level Trough 9.2 Height (Feet): 5 Height (Inches): 4.00 Weight (Pounds): 356 General Appearance: no apparent distress Objective no other change JAY YANCEY Oct 28, 2017 11:02
[2017-10-28 12:00] VITALS: BP 136/88
[2017-10-28 16:00] VITALS: BP 134/86
[2017-10-28] MEDS: Acetaminophen 650mg/20.3ml NG PRN (17:47)
[2017-10-28 20:00] VITALS: BP 130/69
[2017-10-28] MEDS: Dyna-Hex 2% Top Sol 2oz TOPIC SCH (20:47)
[2017-10-29] VITALS: BP 142/67
[2017-10-29] MEDS: Vancomycin 1gm in D5W 275ml IVPB SCH ×2 (00:16→12:12)
[2017-10-29] MEDS: Acetylcysteine 20% Soln 4ml HHN SCH (00:31)
[2017-10-29] MEDS: Albuterol/Ipratropium 3ml neb HHN PRN ×3 (00:32→18:51)
[2017-10-29 04:00] VITALS: BP 124/66
[2017-10-29 05:48] LABS: HEMOGLOBIN 13.5 G/DL (14.2-18.0); MEAN CORPUSCULAR VOLUME 65 FL (80-99); PLATELET COUNT 251 K/UL (150-450); RED CELL DISTRIBUTION WIDTH 21.1 % (11.6-14.8); WHITE BLOOD COUNT 17.2 K/UL (4.8-10.8)
[2017-10-29] MEDS: NovoLOG Insulin Flexpen SUBQ SCH ×4 (06:24→21:00)
[2017-10-29 06:57] LABS: ALANINE AMINOTRANSFERASE 51 U/L (12-78); ALBUMIN 2.7 G/DL (3.4-5.0); ALBUMIN/GLOBULIN RATIO 0.6 (1.0-2.7); ALKALINE PHOSPHATASE 151 U/L (46-116); ANION GAP 9 mmol/L (5-15); ASPARTATE AMINO TRANSFERASE 24 U/L (15-37); BILIRUBIN,TOTAL 1.5 MG/DL (0.2-1.0); BLOOD UREA NITROGEN 32 mg/dL (7-18); CARBON DIOXIDE 26 MMOL/L (21-32); CHLORIDE 102 MMOL/L (98-107); CHOLESTEROL 109 MG/DL (< 200); HDL CHOLESTEROL 27 MG/DL (40-60); PHOSPHORUS 3.9 MG/DL (2.5-4.9); POTASSIUM 3.8 MMOL/L (3.5-5.1); SODIUM 137 MMOL/L (136-145); TRIGLYCERIDES 98 MG/DL (30-150)
[2017-10-29 07:01] LABS: BILIRUBIN,DIRECT 0.4 MG/DL (0.0-0.3)
[2017-10-29 08:00] VITALS: BP 118/70
[2017-10-29] MEDS: Solu-MEDROL 40mg Inj IVP SCH ×2 (08:50→21:16)
[2017-10-29] MEDS: Docusate 100mg/10ml Liq GT SCH ×2 (08:50→17:01)
[2017-10-29] MEDS: Heparin 5000 units/ml inj SUBQ SCH (08:51)
[2017-10-29] MEDS: Pantoprazole Inj IV SCH (09:00)
--- NOTE | 2017-10-29 10:42 | Infectious Diseases Prog Note ---
Assessment/Plan Assessment/Plan ASSESSMENT: The patient is a 42-year-old male with, Possible aspiration pneumonia versus community-acquired pneumonia. Scx : P mirabilis -r/o fungal PNA =10/27: Overall improved aeration with decrease in interstitial opacification/ edema and decrease in right lower lung patchy airspace opacities. Some right lower lung opacities persist. -sp cx 10/24 normal bandar -BAL cx 10/18 neg 10/25 CXR: Stable or perhaps slightly improved diffuse bilateral interstitial and airspace edema versus infiltrates, over one day 10/13 C-Xray worsening of infiltrate vs edema -cocci ID neg, Cocci CF unable to obtain given presence of anticomplementary activity -histo ag urine p Leukocytosis ( on steroids ) -overall improved 10/21 u/a neg,ucx NTD, BCx neg CRP decreasing Fever ( after self extubation ) resolved Probable scrotal cellulitis versus discoloration of genitalia due to edema; improved CRP 20 09/15 >>4.3 10/24 HIV , Crypt, Aspergillus ab : neg U leg Ab and Ag: neg ARDS CORA improving PICC 10/09 VDRF self extub and reintubated 10/19; extubated 10/24 Congestive heart failure. PLAN: Continue empiric Vanco d# 10/10 10/27 SP Diflucan #10 10/27 Meropenem #14 10/17 sp vancomycin and Doxy d# 10 / 10 10/13 sp Zosyn d# 5 Monitor CBC/CMP Monitor chest x-ray Histo :P Fungitell Subjective Allergies: Coded Allergies: No Known Allergies (Unverified , 10/06/17) Subjective afebrile on 4l NC CXR improving mild increase in leukocytosis -on high dose steroids Objective Vital Signs Last 24 Hour Vital Signs Date Time Temp Pulse Resp B/P (MAP) Pulse Ox O2 Delivery O2 Flow Rate FiO2 10/29/17 07:38 Nasal Cannula 4.0 36 10/29/17 07:38 94 Nasal Cannula 4.0 36 10/29/17 07:15 Nasal Cannula 4.0 36 10/29/17 07:15 Nasal Cannula 4.0 36 10/29/17 04:00 98.4 93 19 124/66 96 Nasal Cannula 4.0 10/29/17 04:00 96 10/29/17 00:43 86 20 98 Nasal Cannula 4.0 36 10/29/17 00:33 86 22 98 Nasal Cannula 4.0 36 10/29/17 00:00 97.7 67 21 142/67 95 Nasal Cannula 4.0 10/28/17 20:00 98.1 73 20 130/69 96 Nasal Cannula 4.0 10/28/17 20:00 87 10/28/17 18:58 82 20 99 Nasal Cannula 4.0 10/28/17 18:48 Nasal Cannula 4.0 36 10/28/17 18:48 97 Nasal Cannula 4.0 36 10/28/17 18:48 81 20 97 Nasal Cannula 4.0 10/28/17 18:15 99.2 10/28/17 16:00 87 10/28/17 16:00 99.7 85 20 134/86 99 Nasal Cannula 4.0 10/28/17 13:51 78 20 100 Nasal Cannula 4.0 10/28/17 13:41 89 16 97 Nasal Cannula 4.0 10/28/17 12:00 97.9 81 18 136/88 97 Nasal Cannula 4.0 10/28/17 11:41 84 Height (Feet): 5 Height (Inches): 4.00 Weight (Pounds): 356 Objective HEENT: atraumatic, normocephalic, other - Venturi Mask in place Lungs: rhonchi - scattered anterior Heart: RRR Abdomen: soft, non-tender, active bowel sounds Extremities: no C/C/E Genitalia:Scrotal edema, improved Laboratory Tests Test 10/29/17 04:00 White Blood Count 17.2 K/UL (4.8-10.8) H Red Blood Count 7.10 M/UL (4.70-6.10) H Hemoglobin 13.5 G/DL (14.2-18.0) L Hematocrit 46.0 % (42.0-52.0) Mean Corpuscular Volume 65 FL (80-99) L Mean Corpuscular Hemoglobin 19.1 PG (27.0-31.0) L Mean Corpuscular Hemoglobin Concent 29.4 G/DL (32.0-36.0) L Red Cell Distribution Width 21.1 % (11.6-14.8) H Platelet Count 251 K/UL (150-450) Mean Platelet Volume 9.8 FL (6.5-10.1) Neutrophils (%) (Auto) % (45.0-75.0) Lymphocytes (%) (Auto) % (20.0-45.0) Monocytes (%) (Auto) % (1.0-10.0) Eosinophils (%) (Auto) % (0.0-3.0) Basophils (%) (Auto) % (0.0-2.0) Differential Total Cells Counted 100 Neutrophils % (Manual) 91 % (45-75) H Lymphocytes % (Manual) 4 % (20-45) L Monocytes % (Manual) 5 % (1-10) Eosinophils % (Manual) 0 % (0-3) Basophils % (Manual) 0 % (0-2) Band Neutrophils 0 % (0-8) Platelet Estimate Adequate Platelet Morphology Normal Hypochromasia 1+ Anisocytosis 3+ Microcytosis 3+ Sodium Level 137 MMOL/L (136-145) Potassium Level 3.8 MMOL/L (3.5-5.1) Chloride Level 102 MMOL/L (98-107) Carbon Dioxide Level 26 MMOL/L (21-32) Anion Gap 9 mmol/L (5-15) Blood Urea Nitrogen 32 mg/dL (7-18) H Creatinine 1.0 MG/DL (0.55-1.30) Estimat Glomerular Filtration Rate > 60 mL/min (>60) Glucose Level 87 MG/DL (74-106) Uric Acid 4.6 MG/DL (2.6-7.2) Calcium Level 8.0 MG/DL (8.5-10.1) L Phosphorus Level 3.9 MG/DL (2.5-4.9) Magnesium Level 1.7 MG/DL (1.8-2.4) L Total Bilirubin 1.5 MG/DL (0.2-1.0) H Direct Bilirubin 0.4 MG/DL (0.0-0.3) H Aspartate Amino Transf (AST/SGOT) 24 U/L (15-37) Alanine Aminotransferase (ALT/SGPT) 51 U/L (12-78) Alkaline Phosphatase 151 U/L (46-116) H C-Reactive Protein, Quantitative 4.8 mg/dL (0.00-0.90) H Pro-B-Type Natriuretic Peptide 226 pg/mL (0-125) H Total Protein 7.5 G/DL (6.4-8.2) Albumin 2.7 G/DL (3.4-5.0) L Globulin 4.8 g/dL Albumin/Globulin Ratio 0.6 (1.0-2.7) L Triglycerides Level 98 MG/DL (30-150) Cholesterol Level 109 MG/DL (< 200) LDL Cholesterol 75 mg/dL (<100) HDL Cholesterol 27 MG/DL (40-60) L Cholesterol/HDL Ratio 4.0 (3.3-4.4) Current Medications Medications (Trade) Dose Ordered Sig/Prince Route PRN Reason Start Time Stop Time Status Last Admin Dose Admin Acetaminophen (Tylenol) 650 mg EVERY 4 HOURS PRN NG Mild Pain/Temp > 100.5 10/26/17 13:00 11/08/17 10:14 10/28/17 17:47 Acetylcysteine (Mucomyst) 200 mg Q6HRT HHN 10/29/17 08:00 11/28/17 07:59 Albuterol/ Ipratropium (Albuterol/ Ipratropium) 3 ml Q4H PRN HHN Shortness of Breath 10/26/17 12:00 10/31/17 11:59 10/29/17 00:32 Chlorhexidine Gluconate (Sol-Hex 2%) 1 applic DAILY@2000 TOPIC 10/26/17 20:00 11/08/17 19:59 10/28/17 20:47 Dextrose (Dextrose 50%) STAT PRN IV Hypoglycemia 10/26/17 11:00 11/11/17 10:59 Docusate Sodium (Colace) 100 mg BID GT 10/26/17 18:00 11/12/17 16:59 10/29/17 08:50 Haloperidol Lactate 5 mg/ Dextrose 56 ml @ 224 mls/hr Q1H PRN IVPB BREAKTHROUGH AGITATION 10/26/17 11:00 11/07/17 16:59 Heparin Sodium (Porcine) (Heparin 5000 units/ml) 5,000 units DAILY SUBQ 10/27/17 09:00 11/07/17 10:59 10/29/17 08:51 Insulin Aspart (NovoLOG) BEFORE MEALS AND HS SUBQ 10/26/17 11:30 11/11/17 11:29 10/28/17 20:50 Magnesium Hydroxide (Mom) 30 ml DAILYPRN PRN GT Constipation 10/26/17 16:30 11/12/17 16:29 Methylprednisolone Sodium Succinate (Solu-MEDROL) 20 mg Q12HR IVP 10/26/17 21:00 11/21/17 20:59 10/29/17 08:50 Pantoprazole (Protonix) 40 mg DAILY IV 10/27/17 09:00 11/06/17 10:59 10/28/17 09:51 Vancomycin HCl (Vanco rx to dose) 1 ea DAILY PRN MISC Per rx protocol 10/27/17 09:00 11/19/17 11:14 Vancomycin HCl 1 gm/Dextrose 275 ml @ 183.708 mls/hr Q12HR@0000,1200 IVPB 10/29/17 00:00 10/30/17 23:59 10/29/17 00:16 Evelin Lam M.D. Oct 29, 2017 10:42
[2017-10-29 12:00] VITALS: BP 109/76
--- NOTE | 2017-10-29 12:02 | Diagnostic Imaging Report ---
Indication: Pain Technique: One view of the chest Comparison: 10/27/2017 Findings: Right arm PICC remains. Infiltrate at the right lung base appears similar. The heart is enlarged Impression: Unchanged, over 2 days, findings as above.
[2017-10-29] MEDS: Acetaminophen 650mg/20.3ml NG PRN (13:50)
--- NOTE | 2017-10-29 14:22 | Nephrology Progress Note ---
Assessment/Plan Problem List: (1) Acute respiratory failure Assessment: self extubated 10/24 (2) Acute renal failure Assessment: with previous urinary out let obstruction Assessment Cr stable- WBCs higher s/p Acute renal failure- Cr WNL Acute Respiratory distress , ? aspiration pneumonia, intubated ARDS Now extubated and doing well s/p Acute Pulmonary edema scotal cellutis Morbid obesity. Thrombocytopenia. Abnormal blood sugar. Anemia. Plan Plan: per consultants K and Mag supplement as needed Keep BP in check monitor renal parameters per consultants / pulmonary per orders Left ventricular ejection fraction estimated to be grossly normal. Mild left ventricular hypertrophy. Subjective ROS Limited/Unobtainable: No Objective Objective Last 24 Hour Vital Signs Date Time Temp Pulse Resp B/P (MAP) Pulse Ox O2 Delivery O2 Flow Rate FiO2 10/29/17 13:49 99.8 10/29/17 12:50 87 22 98 Nasal Cannula 4.0 36 10/29/17 12:45 82 22 95 Nasal Cannula 4.0 36 10/29/17 12:00 99.0 94 19 109/76 97 10/29/17 08:00 97.7 94 18 118/70 98 Nasal Cannula 4.0 10/29/17 07:56 92 10/29/17 07:38 Nasal Cannula 4.0 36 10/29/17 07:38 94 Nasal Cannula 4.0 36 10/29/17 07:15 Nasal Cannula 4.0 36 10/29/17 07:15 Nasal Cannula 4.0 36 10/29/17 04:00 98.4 93 19 124/66 96 Nasal Cannula 4.0 10/29/17 04:00 96 10/29/17 00:43 86 20 98 Nasal Cannula 4.0 36 10/29/17 00:33 86 22 98 Nasal Cannula 4.0 36 10/29/17 00:00 97.7 67 21 142/67 95 Nasal Cannula 4.0 10/28/17 20:00 98.1 73 20 130/69 96 Nasal Cannula 4.0 10/28/17 20:00 87 10/28/17 18:58 82 20 99 Nasal Cannula 4.0 10/28/17 18:48 Nasal Cannula 4.0 36 10/28/17 18:48 97 Nasal Cannula 4.0 36 10/28/17 18:48 81 20 97 Nasal Cannula 4.0 10/28/17 18:15 99.2 12/31/17 16:00 87 10/28/17 16:00 99.7 85 20 134/86 99 Nasal Cannula 4.0 Intake and Output 10/28/17 10/29/17 19:00 07:00 Intake Total 770 ml 367.416 ml Output Total 1580 ml Balance 770 ml -1212.584 ml Intake Oral 770 ml IV Total 367.416 ml Output Urine Total 1580 ml # Bowel Movements 1 Laboratory Tests 10/29/17 04:00: White Blood Count 17.2H, Red Blood Count 7.10H, Hemoglobin 13.5L, Hematocrit 46.0, Mean Corpuscular Volume 65L, Mean Corpuscular Hemoglobin 19.1L, Mean Corpuscular Hemoglobin Concent 29.4L, Red Cell Distribution Width 21.1H, Platelet Count 251, Mean Platelet Volume 9.8, Neutrophils (%) (Auto) , Lymphocytes (%) (Auto) , Monocytes (%) (Auto) , Eosinophils (%) (Auto) , Basophils (%) (Auto) , Differential Total Cells Counted 100, Neutrophils % ( Manual) 91H, Lymphocytes % (Manual) 4L, Monocytes % (Manual) 5, Eosinophils % ( Manual) 0, Basophils % (Manual) 0, Band Neutrophils 0, Platelet Estimate Adequate, Platelet Morphology Normal, Hypochromasia 1+, Anisocytosis 3+, Microcytosis 3+, Sodium Level 137, Potassium Level 3.8, Chloride Level 102, Carbon Dioxide Level 26, Anion Gap 9, Blood Urea Nitrogen 32H, Creatinine 1.0, Estimat Glomerular Filtration Rate > 60, Glucose Level 87, Uric Acid 4.6, Calcium Level 8.0L, Phosphorus Level 3.9, Magnesium Level 1.7L, Total Bilirubin 1.5H, Direct Bilirubin 0.4H, Aspartate Amino Transf (AST/SGOT) 24, Alanine Aminotransferase (ALT/SGPT) 51, Alkaline Phosphatase 151H, C-Reactive Protein, Quantitative 4.8H, Pro-B-Type Natriuretic Peptide 226H, Total Protein 7.5, Albumin 2.7L, Globulin 4.8, Albumin/Globulin Ratio 0.6L, Triglycerides Level 98 , Cholesterol Level 109, LDL Cholesterol 75, HDL Cholesterol 27L, Cholesterol/ HDL Ratio 4.0 Height (Feet): 5 Height (Inches): 4.00 Weight (Pounds): 356 General Appearance: no apparent distress Objective no other change JAY YANCEY Oct 29, 2017 14:22
[2017-10-29] MEDS ORDERED: Tubing IV Secondary IV ONE ×2 (14:39→17:25)
[2017-10-29] MEDS ORDERED: 1/2 NS 1000ml IV ONE (14:39)
[2017-10-29] MEDS ORDERED: NS 500ML ONE (14:39)
[2017-10-29 16:00] VITALS: BP 145/77
[2017-10-29] MEDS ORDERED: NS 275ml ONE (17:25)
--- NOTE | 2017-10-29 19:33 | General Progress Note ---
Assessment/Plan Assessment/Plan Assessment/Plan 1. VDRF currently is extubated, self-extubated 2. ARDS-Hypoxemic respiratory failure. 3. Sepsis: Aspiration Gram negative HCA-PNA 4. Gram negative HCA-PNA 5. Cellulitis of the scrotal area. 6. Morbid obesity. 7. ARF 8. Obstructive uropathy 9. Thrombocytopenia. 10. DM-2 11. Anemia. 12. Gastrointestinal and deep vein thrombosis prophylaxes. 13. Psoriasis Subjective Constitutional: Denies: no symptoms, chills, diaphoresis, fever, malaise, weakness, other HEENT: Denies: no symptoms, eye pain, blurred vision, tearing, double vision, ear pain, ear discharge, nose pain, nose congestion, throat pain, throat swelling, mouth pain, mouth swelling, other Cardiovascular: Denies: no symptoms, chest pain, edema, irregular heart rate, lightheadedness, palpitations, syncope, other Respiratory: Denies: no symptoms, cough, orthopnea, shortness of breath, SOB with excertion, SOB at rest, sputum, stridor, wheezing, other Gastrointestinal/Abdominal: Denies: no symptoms, abdomen distended, abdominal pain, black stools, tarry stools, blood in stool, constipated, diarrhea, difficulty swallowing, nausea, poor appetite, poor fluid intake, rectal bleeding , vomiting, other Genitourinary: Denies: no symptoms, burning, discharge, frequency, flank pain, hematuria, incontinence, pain, urgency, other Neurologic/Psychiatric: Denies: no symptoms, anxiety, depressed, emotional problems, headache, numbness, paresthesia, pre-existing deficit, seizure, tingling, tremors, weakness, other Endocrine: Denies: no symptoms, excessive sweating, flushing, intolerance to cold, intolerance to heat, increased hunger, increased thirst, increased urine, unexplained weight gain, unexplained weight loss, other Allergies: Coded Allergies: No Known Allergies (Unverified , 10/06/17) Subjective no fevers or chills reported Objective Last 24 Hour Vital Signs Date Time Temp Pulse Resp B/P (MAP) Pulse Ox O2 Delivery O2 Flow Rate FiO2 10/29/17 19:02 96 Nasal Cannula 4.0 36 10/29/17 19:02 Nasal Cannula 4.0 36 10/29/17 18:58 96 20 99 Nasal Cannula 4.0 36 10/29/17 18:51 92 22 96 Nasal Cannula 4.0 36 10/29/17 16:43 97 10/29/17 16:00 98.1 65 20 145/77 93 Nasal Cannula 4.0 10/29/17 14:20 99.0 10/29/17 14:20 99.0 10/29/17 13:49 99.8 10/29/17 12:50 87 22 98 Nasal Cannula 4.0 36 10/29/17 12:45 82 22 95 Nasal Cannula 4.0 36 10/29/17 12:00 99.0 94 19 109/76 97 10/29/17 12:00 98 10/29/17 08:00 97.7 94 18 118/70 98 Nasal Cannula 4.0 10/29/17 07:56 92 10/29/17 07:38 Nasal Cannula 4.0 36 10/29/17 07:38 94 Nasal Cannula 4.0 36 10/29/17 07:15 Nasal Cannula 4.0 36 10/29/17 07:15 Nasal Cannula 4.0 36 10/29/17 04:00 98.4 93 19 124/66 96 Nasal Cannula 4.0 10/29/17 04:00 96 10/29/17 00:43 86 20 98 Nasal Cannula 4.0 36 10/29/17 00:33 86 22 98 Nasal Cannula 4.0 36 10/29/17 00:00 97.7 67 21 142/67 95 Nasal Cannula 4.0 10/28/17 20:00 98.1 73 20 130/69 96 Nasal Cannula 4.0 10/28/17 20:00 87 Intake and Output 10/28/17 10/29/17 18:59 06:59 Intake Total 770 ml 367.416 ml Output Total 1580 ml Balance 770 ml -1212.584 ml Intake Oral 770 ml IV Total 367.416 ml Output Urine Total 1580 ml # Bowel Movements 1 Laboratory Tests 10/29/17 04:00: White Blood Count 17.2H, Red Blood Count 7.10H, Hemoglobin 13.5L, Hematocrit 46.0, Mean Corpuscular Volume 65L, Mean Corpuscular Hemoglobin 19.1L, Mean Corpuscular Hemoglobin Concent 29.4L, Red Cell Distribution Width 21.1H, Platelet Count 251, Mean Platelet Volume 9.8, Neutrophils (%) (Auto) , Lymphocytes (%) (Auto) , Monocytes (%) (Auto) , Eosinophils (%) (Auto) , Basophils (%) (Auto) , Differential Total Cells Counted 100, Neutrophils % ( Manual) 91H, Lymphocytes % (Manual) 4L, Monocytes % (Manual) 5, Eosinophils % ( Manual) 0, Basophils % (Manual) 0, Band Neutrophils 0, Platelet Estimate Adequate, Platelet Morphology Normal, Hypochromasia 1+, Anisocytosis 3+, Microcytosis 3+, Sodium Level 137, Potassium Level 3.8, Chloride Level 102, Carbon Dioxide Level 26, Anion Gap 9, Blood Urea Nitrogen 32H, Creatinine 1.0, Estimat Glomerular Filtration Rate > 60, Glucose Level 87, Uric Acid 4.6, Calcium Level 8.0L, Phosphorus Level 3.9, Magnesium Level 1.7L, Total Bilirubin 1.5H, Direct Bilirubin 0.4H, Aspartate Amino Transf (AST/SGOT) 24, Alanine Aminotransferase (ALT/SGPT) 51, Alkaline Phosphatase 151H, C-Reactive Protein, Quantitative 4.8H, Pro-B-Type Natriuretic Peptide 226H, Total Protein 7.5, Albumin 2.7L, Globulin 4.8, Albumin/Globulin Ratio 0.6L, Triglycerides Level 98 , Cholesterol Level 109, LDL Cholesterol 75, HDL Cholesterol 27L, Cholesterol/ HDL Ratio 4.0 Height (Feet): 5 Height (Inches): 4.00 Weight (Pounds): 356 General Appearance: no apparent distress EENT: TMs normal Neck: supple Cardiovascular: regular rhythm Respiratory/Chest: normal breath sounds Abdomen: no organomegaly Extremities: non-tender Edema: no edema noted Leg (L), no edema noted Leg (R) Semaj Juárez Oct 29, 2017 19:33
[2017-10-29 20:00] VITALS: BP 143/86
[2017-10-29] MEDS: Dyna-Hex 2% Top Sol 2oz TOPIC SCH (21:15)
[2017-10-30 00:36] VITALS: BP 122/87
[2017-10-30] MEDS: Albuterol/Ipratropium 3ml neb HHN PRN ×4 (01:47→20:05)
[2017-10-30 04:00] VITALS: BP 120/81
[2017-10-30] MEDS: NovoLOG Insulin Flexpen SUBQ SCH ×4 (06:27→20:51)
[2017-10-30 08:00] VITALS: BP 136/78
[2017-10-30] MEDS: Pantoprazole Inj IV SCH (08:57)
[2017-10-30] MEDS: Docusate 100mg/10ml Liq GT SCH ×2 (08:57→17:12)
[2017-10-30] MEDS: Heparin 5000 units/ml inj SUBQ SCH (08:58)
[2017-10-30] MEDS: Solu-MEDROL 40mg Inj IVP SCH ×2 (08:58→20:51)
--- NOTE | 2017-10-30 09:58 | General Progress Note ---
Assessment/Plan Status: stable Assessment/Plan 1. ARDS-Hypoxemic respiratory failure. Resolved 3.Sepsis: Aspiration Gram negative HCA-PNA : Resolved 4. Gram negative HCA-PNA : Resolved 5. Cellulitis of the scrotal area. 6. Morbid obesity. 7. ARF 8. Obstructive uropathy 9. Thrombocytopenia. 10. DM-2 11. Anemia. 12. Gastrointestinal and deep vein thrombosis prophylaxes. 13. Psoriasis PLAN OF CARE: NOtes from Infectious Diseases Dr. Pineda, Nephrology, Dr Urrutia, reviewed S/p self extubation current management DC plan to [facility] Subjective ROS Limited/Unobtainable: No Constitutional: Reports: no symptoms HEENT: Reports: no symptoms Cardiovascular: Reports: no symptoms Allergies: Coded Allergies: No Known Allergies (Unverified , 10/06/17) Subjective general weakness Objective Last 24 Hour Vital Signs Date Time Temp Pulse Resp B/P (MAP) Pulse Ox O2 Delivery O2 Flow Rate FiO2 10/30/17 08:00 99.5 97 23 136/78 91 10/30/17 08:00 103 10/30/17 07:06 92 20 99 Nasal Cannula 4.0 36 10/30/17 06:56 97 Nasal Cannula 4.0 36 10/30/17 06:56 Nasal Cannula 4.0 36 10/30/17 06:56 89 18 97 Nasal Cannula 4.0 36 10/30/17 04:00 85 10/30/17 04:00 98.1 98 21 120/81 97 10/30/17 01:55 89 20 100 Nasal Cannula 4.0 36 10/30/17 01:47 94 20 98 Nasal Cannula 4.0 36 10/30/17 00:36 98.2 100 22 122/87 97 10/30/17 00:00 95 10/29/17 20:00 99.6 102 20 143/86 96 10/29/17 20:00 102 10/29/17 19:02 96 Nasal Cannula 4.0 36 10/29/17 19:02 Nasal Cannula 4.0 36 10/29/17 18:58 96 20 99 Nasal Cannula 4.0 36 10/29/17 18:51 92 22 96 Nasal Cannula 4.0 36 10/29/17 16:43 97 10/29/17 16:00 98.1 65 20 145/77 93 Nasal Cannula 4.0 10/29/17 14:20 99.0 10/29/17 14:20 99.0 10/29/17 13:49 99.8 10/29/17 12:50 87 22 98 Nasal Cannula 4.0 36 10/29/17 12:45 82 22 95 Nasal Cannula 4.0 36 10/29/17 12:00 99.0 94 19 109/76 97 10/29/17 12:00 98 Intake and Output 10/29/17 10/30/17 19:00 07:00 Intake Total 440 ml Output Total 1300 ml Balance 440 ml -1300 ml Intake Oral 440 ml Output Urine Total 1300 ml # Voids 1 # Bowel Movements 1 Height (Feet): 5 Height (Inches): 4.00 Weight (Pounds): 356 General Appearance: no apparent distress EENT: PERRL/EOMI Neck: supple Cardiovascular: normal rate Respiratory/Chest: rhonchi - bilaterally Abdomen: soft Extremities: non-tender, other - general weakness 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
--- NOTE | 2017-10-30 11:57 | Pulmonology Progress Note ---
Assessment/Plan Problems: (1) Acute respiratory failure (2) ARDS (adult respiratory distress syndrome) (3) Weakness (4) scotal cellutis Assessment/Plan improving respiratory treatment on low dose steroids cxr reviewed pt/ot abs as per Id Med /surg dc planning Subjective Interval Events: less short of breath Allergies: Coded Allergies: No Known Allergies (Unverified , 10/06/17) Objective Last 24 Hour Vital Signs Date Time Temp Pulse Resp B/P (MAP) Pulse Ox O2 Delivery O2 Flow Rate FiO2 10/30/17 08:00 99.5 97 23 136/78 91 10/30/17 08:00 103 10/30/17 07:06 92 20 99 Nasal Cannula 4.0 36 10/30/17 06:56 97 Nasal Cannula 4.0 36 10/30/17 06:56 Nasal Cannula 4.0 36 10/30/17 06:56 89 18 97 Nasal Cannula 4.0 36 10/30/17 04:00 85 10/30/17 04:00 98.1 98 21 120/81 97 10/30/17 01:55 89 20 100 Nasal Cannula 4.0 36 10/30/17 01:47 94 20 98 Nasal Cannula 4.0 36 10/30/17 00:36 98.2 100 22 122/87 97 10/30/17 00:00 95 10/29/17 20:00 99.6 102 20 143/86 96 10/29/17 20:00 102 10/29/17 19:02 96 Nasal Cannula 4.0 36 10/29/17 19:02 Nasal Cannula 4.0 36 10/29/17 18:58 96 20 99 Nasal Cannula 4.0 36 10/29/17 18:51 92 22 96 Nasal Cannula 4.0 36 10/29/17 16:43 97 10/29/17 16:00 98.1 65 20 145/77 93 Nasal Cannula 4.0 10/29/17 14:20 99.0 10/29/17 14:20 99.0 10/29/17 13:49 99.8 10/29/17 12:50 87 22 98 Nasal Cannula 4.0 36 10/29/17 12:45 82 22 95 Nasal Cannula 4.0 36 10/29/17 12:00 99.0 94 19 109/76 97 10/29/17 12:00 98 Intake and Output 10/29/17 10/30/17 19:00 07:00 Intake Total 440 ml Output Total 1300 ml Balance 440 ml -1300 ml Intake Oral 440 ml Output Urine Total 1300 ml # Voids 1 # Bowel Movements 1 General Appearance: WD/WN, no acute distress HEENT: atraumatic Respiratory/Chest: chest wall non-tender, crackles/rales Cardiovascular: normal peripheral pulses, normal rate Abdomen: normal bowel sounds, soft, non tender Genitourinary: normal external genitalia Extremities: no cyanosis Skin: no rash 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, no motor/sensory deficits Lymphatic: no neck adenopathy Musculoskeletal: normal muscle bulk Current Medications Medications (Trade) Dose Ordered Sig/Prince Route PRN Reason Start Time Stop Time Status Last Admin Dose Admin Acetaminophen (Tylenol) 650 mg EVERY 4 HOURS PRN NG Mild Pain/Temp > 100.5 10/26/17 13:00 11/08/17 10:14 10/29/17 13:50 Acetylcysteine (Mucomyst) 200 mg Q6HRT HHN 10/29/17 08:00 11/28/17 07:59 10/30/17 06:56 Albuterol/ Ipratropium (Albuterol/ Ipratropium) 3 ml Q4H PRN HHN Shortness of Breath 10/26/17 12:00 10/31/17 11:59 10/30/17 06:56 Chlorhexidine Gluconate (Sol-Hex 2%) 1 applic DAILY@2000 TOPIC 10/26/17 20:00 11/08/17 19:59 10/29/17 21:15 Dextrose (Dextrose 50%) STAT PRN IV Hypoglycemia 10/26/17 11:00 11/11/17 10:59 Docusate Sodium (Colace) 100 mg BID GT 10/26/17 18:00 11/12/17 16:59 10/30/17 08:57 Haloperidol Lactate 5 mg/ Dextrose 56 ml @ 224 mls/hr Q1H PRN IVPB BREAKTHROUGH AGITATION 10/26/17 11:00 11/07/17 16:59 Heparin Sodium (Porcine) (Heparin 5000 units/ml) 5,000 units DAILY SUBQ 10/27/17 09:00 11/07/17 10:59 10/30/17 08:58 Insulin Aspart (NovoLOG) BEFORE MEALS AND HS SUBQ 10/26/17 11:30 11/11/17 11:29 10/29/17 17:01 Magnesium Hydroxide (Mom) 30 ml DAILYPRN PRN GT Constipation 10/26/17 16:30 11/12/17 16:29 Methylprednisolone Sodium Succinate (Solu-MEDROL) 10 mg Q12HR IVP 10/29/17 21:00 11/28/17 20:59 10/30/17 08:58 Pantoprazole (Protonix) 40 mg DAILY IV 10/27/17 09:00 11/06/17 10:59 10/30/17 08:57 Vancomycin HCl (Vanco rx to dose) 1 ea DAILY PRN MISC Per rx protocol 10/27/17 09:00 11/19/17 11:14 DWAYNE GROSS Oct 30, 2017 11:57
[2017-10-30 12:00] VITALS: BP 109/88
--- NOTE | 2017-10-30 13:23 | Infectious Diseases Prog Note ---
Assessment/Plan Assessment/Plan ASSESSMENT: The patient is a 42-year-old male with, Possible aspiration pneumonia versus community-acquired pneumonia. Scx : P mirabilis -r/o fungal PNA 10/29 cXR: Infiltrate at the right lung base appears similar. =10/27: Overall improved aeration with decrease in interstitial opacification/ edema and decrease in right lower lung patchy airspace opacities. Some right lower lung opacities persist. -sp cx 10/24 normal bandar -BAL cx 10/18 neg 10/25 CXR: Stable or perhaps slightly improved diffuse bilateral interstitial and airspace edema versus infiltrates, over one day 10/13 C-Xray worsening of infiltrate vs edema -cocci ID neg, Cocci CF unable to obtain given presence of anticomplementary activity -histo ag urine p Leukocytosis ( on steroids ) -overall improved; slighly increased today 10/21 u/a neg,ucx NTD, BCx neg CRP decreasing Fever ( after self extubation ) resolved- low grade fever x1 today Probable scrotal cellulitis versus discoloration of genitalia due to edema; improved CRP 09/15 >>4.3 10/24 HIV , Crypt, Aspergillus ab : neg U leg Ab and Ag: neg ARDS CORA improving PICC 10/09 VDRF self extub and reintubated 10/19; extubated 10/24 Congestive heart failure. PLAN: Continue to monitor off abx unless worsening fevers/ leukocytosis or increased O2 requiremetns 10/29 SP IV Vanco #10 10/27 SP Diflucan #10 10/27 Meropenem #14 10/17 sp vancomycin and Doxy d# 10 / 10 10/13 sp Zosyn d# 5 Monitor CBC/CMP Monitor chest x-ray Histo :P Fungitell Subjective Allergies: Coded Allergies: No Known Allergies (Unverified , 10/06/17) Subjective low grade fever x1 100.8 mild increased leukocytosis- on solumedrol off abx now at 4L NC Objective Vital Signs Last 24 Hour Vital Signs Date Time Temp Pulse Resp B/P (MAP) Pulse Ox O2 Delivery O2 Flow Rate FiO2 10/30/17 12:36 95 20 93 Nasal Cannula 4.0 36 10/30/17 12:00 100.8 97 23 109/88 94 10/30/17 12:00 99 10/30/17 08:00 99.5 97 23 136/78 91 10/30/17 08:00 103 10/30/17 07:06 92 20 99 Nasal Cannula 4.0 36 10/30/17 06:56 97 Nasal Cannula 4.0 36 10/30/17 06:56 Nasal Cannula 4.0 36 10/30/17 06:56 89 18 97 Nasal Cannula 4.0 36 10/30/17 04:00 85 10/30/17 04:00 98.1 98 21 120/81 97 10/30/17 01:55 89 20 100 Nasal Cannula 4.0 36 10/30/17 01:47 94 20 98 Nasal Cannula 4.0 36 10/30/17 00:36 98.2 100 22 122/87 97 10/30/17 00:00 95 10/29/17 20:00 99.6 102 20 143/86 96 10/29/17 20:00 102 10/29/17 19:02 96 Nasal Cannula 4.0 36 10/29/17 19:02 Nasal Cannula 4.0 36 10/29/17 18:58 96 20 99 Nasal Cannula 4.0 36 10/29/17 18:51 92 22 96 Nasal Cannula 4.0 36 10/29/17 16:43 97 10/29/17 16:00 98.1 65 20 145/77 93 Nasal Cannula 4.0 10/29/17 14:20 99.0 10/29/17 14:20 99.0 10/29/17 13:49 99.8 Height (Feet): 5 Height (Inches): 4.00 Weight (Pounds): 356 Objective HEENT: atraumatic, normocephalic, other - Venturi Mask in place Lungs: rhonchi - scattered anterior Heart: RRR Abdomen: soft, non-tender, active bowel sounds Extremities: no C/C/E Genitalia:Scrotal edema, improved Current Medications Medications (Trade) Dose Ordered Sig/Prince Route PRN Reason Start Time Stop Time Status Last Admin Dose Admin Acetaminophen (Tylenol) 650 mg EVERY 4 HOURS PRN NG Mild Pain/Temp > 100.5 10/26/17 13:00 11/08/17 10:14 10/29/17 13:50 Acetylcysteine (Mucomyst) 200 mg Q6HRT HHN 10/29/17 08:00 11/28/17 07:59 10/30/17 12:36 Albuterol/ Ipratropium (Albuterol/ Ipratropium) 3 ml Q4H PRN HHN Shortness of Breath 10/26/17 12:00 10/31/17 11:59 10/30/17 12:36 Chlorhexidine Gluconate (Sol-Hex 2%) 1 applic DAILY@2000 TOPIC 10/26/17 20:00 11/08/17 19:59 10/29/17 21:15 Dextrose (Dextrose 50%) STAT PRN IV Hypoglycemia 10/26/17 11:00 11/11/17 10:59 Docusate Sodium (Colace) 100 mg BID GT 10/26/17 18:00 11/12/17 16:59 10/30/17 08:57 Haloperidol Lactate 5 mg/ Dextrose 56 ml @ 224 mls/hr Q1H PRN IVPB BREAKTHROUGH AGITATION 10/26/17 11:00 11/07/17 16:59 Heparin Sodium (Porcine) (Heparin 5000 units/ml) 5,000 units DAILY SUBQ 10/27/17 09:00 11/07/17 10:59 10/30/17 08:58 Insulin Aspart (NovoLOG) BEFORE MEALS AND HS SUBQ 10/26/17 11:30 11/11/17 11:29 10/29/17 17:01 Magnesium Hydroxide (Mom) 30 ml DAILYPRN PRN GT Constipation 10/26/17 16:30 11/12/17 16:29 Methylprednisolone Sodium Succinate (Solu-MEDROL) 10 mg Q12HR IVP 10/29/17 21:00 11/28/17 20:59 10/30/17 08:58 Pantoprazole (Protonix) 40 mg DAILY IV 10/27/17 09:00 11/06/17 10:59 10/30/17 08:57 Evelin Lam M.D. Oct 30, 2017 13:23
--- NOTE | 2017-10-30 15:24 | Nephrology Progress Note ---
Assessment/Plan Problem List: (1) Acute respiratory failure Assessment: self extubated 10/24 (2) Acute renal failure Assessment: with previous urinary out let obstruction Assessment no labs today s/p Acute renal failure- Cr WNL Acute Respiratory distress , ? aspiration pneumonia, intubated ARDS Now extubated and doing well s/p Acute Pulmonary edema scotal cellutis Morbid obesity. Thrombocytopenia. Abnormal blood sugar. Anemia. Plan Plan: no labs today- per consultants K and Mag supplement as needed Keep BP in check monitor renal parameters per consultants / pulmonary per orders Left ventricular ejection fraction estimated to be grossly normal. Mild left ventricular hypertrophy. Subjective ROS Limited/Unobtainable: No Constitutional: Reports: malaise Objective Objective Last 24 Hour Vital Signs Date Time Temp Pulse Resp B/P (MAP) Pulse Ox O2 Delivery O2 Flow Rate FiO2 10/30/17 12:47 87 18 99 Nasal Cannula 4.0 36 10/30/17 12:36 95 20 93 Nasal Cannula 4.0 36 10/30/17 12:00 100.8 97 23 109/88 94 10/30/17 12:00 99 10/30/17 08:00 99.5 97 23 136/78 91 10/30/17 08:00 103 10/30/17 07:06 92 20 99 Nasal Cannula 4.0 36 10/30/17 06:56 97 Nasal Cannula 4.0 36 10/30/17 06:56 Nasal Cannula 4.0 36 10/30/17 06:56 89 18 97 Nasal Cannula 4.0 36 10/30/17 04:00 85 10/30/17 04:00 98.1 98 21 120/81 97 10/30/17 01:55 89 20 100 Nasal Cannula 4.0 36 10/30/17 01:47 94 20 98 Nasal Cannula 4.0 36 10/30/17 00:36 98.2 100 22 122/87 97 10/30/17 00:00 95 10/29/17 20:00 99.6 102 20 143/86 96 10/29/17 20:00 102 10/29/17 19:02 96 Nasal Cannula 4.0 36 10/29/17 19:02 Nasal Cannula 4.0 36 10/29/17 18:58 96 20 99 Nasal Cannula 4.0 36 10/29/17 18:51 92 22 96 Nasal Cannula 4.0 36 10/29/17 16:43 97 10/29/17 16:00 98.1 65 20 145/77 93 Nasal Cannula 4.0 Intake and Output 10/29/17 10/30/17 19:00 07:00 Intake Total 440 ml Output Total 1300 ml Balance 440 ml -1300 ml Intake Oral 440 ml Output Urine Total 1300 ml # Voids 1 # Bowel Movements 1 Height (Feet): 5 Height (Inches): 4.00 Weight (Pounds): 356 General Appearance: no apparent distress Objective no other change JAY YANCEY Oct 30, 2017 15:24
[2017-10-30 16:00] VITALS: BP 123/79
[2017-10-30] MEDS ORDERED: Haloperidol Lactate 5 MG in D5W 55 ML IVPB PRN (16:00)
[2017-10-30] MEDS ORDERED: Milk of Magnesia 30ml Ud GT PRN (16:30)
[2017-10-30] MEDS ORDERED: Acetaminophen 650mg/20.3ml NG PRN (17:00)
[2017-10-30 20:00] VITALS: BP 117/64
[2017-10-30] MEDS: Dyna-Hex 2% Top Sol 2oz TOPIC SCH (20:50)
[2017-10-31] VITALS: BP 114/76
[2017-10-31] MEDS: Albuterol/Ipratropium 3ml neb HHN PRN ×4 (00:59→20:28)
[2017-10-31 04:00] VITALS: BP 116/68
[2017-10-31] MEDS: NovoLOG Insulin Flexpen SUBQ SCH ×4 (06:10→21:00)
[2017-10-31 07:35] LABS: HEMATOCRIT 44.2 % (42.0-52.0); HEMOGLOBIN 12.6 G/DL (14.2-18.0); MEAN CORPUSCULAR VOLUME 65 FL (80-99); PLATELET COUNT 178 K/UL (150-450); RED BLOOD COUNT 6.76 M/UL (4.70-6.10); RED CELL DISTRIBUTION WIDTH 21.3 % (11.6-14.8); WHITE BLOOD COUNT 13.9 K/UL (4.8-10.8)
[2017-10-31 07:54] LABS: ALANINE AMINOTRANSFERASE 29 U/L (12-78); ALBUMIN/GLOBULIN RATIO 0.5 (1.0-2.7); ALKALINE PHOSPHATASE 117 U/L (46-116); ANION GAP 7 mmol/L (5-15); ASPARTATE AMINO TRANSFERASE 16 U/L (15-37); BILIRUBIN,TOTAL 0.9 MG/DL (0.2-1.0); BLOOD UREA NITROGEN 21 mg/dL (7-18); CALCIUM 6.5 MG/DL (8.5-10.1); CARBON DIOXIDE 26 MMOL/L (21-32); CHLORIDE 106 MMOL/L (98-107); CREATININE 0.7 MG/DL (0.55-1.30); GAMMA GLUTAMYL TRANSPEPTIDASE 82 U/L (5-85); POTASSIUM 3.1 MMOL/L (3.5-5.1); SODIUM 139 MMOL/L (136-145)
[2017-10-31 08:00] VITALS: BP 123/68
[2017-10-31] MEDS: Solu-MEDROL 40mg Inj IVP SCH ×2 (09:25→21:21)
[2017-10-31] MEDS: Docusate 100mg/10ml Liq GT SCH ×2 (09:26→18:10)
[2017-10-31] MEDS: Pantoprazole Inj IV SCH (09:26)
[2017-10-31] MEDS: Heparin 5000 units/ml inj SUBQ SCH (09:27)
[2017-10-31] MEDS ORDERED: Potassium Chloride 50 MEQ in Sodium Chloride 500ML 550 ML IVPB ONE (11:00)
--- NOTE | 2017-10-31 11:32 | Infectious Diseases Prog Note ---
Assessment/Plan Assessment/Plan ASSESSMENT: The patient is a 42-year-old male with, Possible aspiration pneumonia versus community-acquired pneumonia. Scx : P mirabilis -s/p Rx ; improving 10/29 cXR: Infiltrate at the right lung base appears similar. =10/27: Overall improved aeration with decrease in interstitial opacification/ edema and decrease in right lower lung patchy airspace opacities. Some right lower lung opacities persist. -sp cx 10/24 normal bandar -BAL cx 10/18 neg 10/25 CXR: Stable or perhaps slightly improved diffuse bilateral interstitial and airspace edema versus infiltrates, over one day 10/13 C-Xray worsening of infiltrate vs edema -cocci ID neg, Cocci CF unable to obtain given presence of anticomplementary activity -histo ag urine p Leukocytosis ( on steroids ) -improving 10/21 u/a neg,ucx NTD, BCx neg CRP decreasing Intermittent low grade fevers Probable scrotal cellulitis versus discoloration of genitalia due to edema; improved CRP 09/15 >>4.3 10/24 HIV , Crypt, Aspergillus ab : neg U leg Ab and Ag: neg ARDS CORA improving PICC 10/09 VDRF self extub and reintubated 10/19; extubated 10/24 Congestive heart failure. PLAN: Continue to monitor off abx unless worsening fevers/ leukocytosis or increased O2 requiremetns 10/29 SP IV Vanco #10 10/27 SP Diflucan #10 10/27 Meropenem #14 10/17 sp vancomycin and Doxy d# 10 / 10 10/13 sp Zosyn d# 5 Monitor CBC/CMP Monitor chest x-ray; CXR am Histo :P Fungitell Subjective Allergies: Coded Allergies: No Known Allergies (Unverified , 10/06/17) Subjective low grade fever Tm 100.1 leukocytosis improving at 4l NC Objective Vital Signs Last 24 Hour Vital Signs Date Time Temp Pulse Resp B/P (MAP) Pulse Ox O2 Delivery O2 Flow Rate FiO2 10/31/17 08:23 Nasal Cannula 4.0 36 10/31/17 08:23 96 Nasal Cannula 4.0 36 10/31/17 08:23 91 18 99 Nasal Cannula 4.0 36 10/31/17 08:20 90 20 94 Nasal Cannula 4.0 36 10/31/17 08:00 100.0 95 20 123/68 95 10/31/17 04:00 98.0 93 18 116/68 90 10/31/17 01:11 89 18 99 Nasal Cannula 4.0 36 10/31/17 00:59 84 20 96 Nasal Cannula 4.0 36 10/31/17 00:00 97.9 95 21 114/76 100 10/30/17 20:20 93 18 99 Nasal Cannula 4.0 36 10/30/17 20:12 97 Nasal Cannula 4.0 36 10/30/17 20:12 Nasal Cannula 4.0 36 10/30/17 20:05 88 20 95 Nasal Cannula 4.0 36 10/30/17 20:00 98.4 87 21 117/64 94 10/30/17 16:00 100.1 96 20 123/79 93 10/30/17 12:47 87 18 99 Nasal Cannula 4.0 36 10/30/17 12:36 95 20 93 Nasal Cannula 4.0 36 10/30/17 12:00 100.8 97 23 109/88 94 10/30/17 12:00 99 Height (Feet): 5 Height (Inches): 4.00 Weight (Pounds): 356 Objective HEENT: atraumatic, normocephalic, other - Venturi Mask in place Lungs: rhonchi - scattered anterior Heart: RRR Abdomen: soft, non-tender, active bowel sounds Extremities: no C/C/E Genitalia:Scrotal edema, improved Laboratory Tests Test 10/31/17 05:00 White Blood Count 13.9 K/UL (4.8-10.8) H Red Blood Count 6.76 M/UL (4.70-6.10) H Hemoglobin 12.6 G/DL (14.2-18.0) L Hematocrit 44.2 % (42.0-52.0) Mean Corpuscular Volume 65 FL (80-99) L Mean Corpuscular Hemoglobin 18.6 PG (27.0-31.0) L Mean Corpuscular Hemoglobin Concent 28.5 G/DL (32.0-36.0) L Red Cell Distribution Width 21.3 % (11.6-14.8) H Platelet Count 178 K/UL (150-450) Mean Platelet Volume 9.9 FL (6.5-10.1) Neutrophils (%) (Auto) % (45.0-75.0) Lymphocytes (%) (Auto) % (20.0-45.0) Monocytes (%) (Auto) % (1.0-10.0) Eosinophils (%) (Auto) % (0.0-3.0) Basophils (%) (Auto) % (0.0-2.0) Differential Total Cells Counted 100 Neutrophils % (Manual) 92 % (45-75) H Lymphocytes % (Manual) 5 % (20-45) L Monocytes % (Manual) 3 % (1-10) Eosinophils % (Manual) 0 % (0-3) Basophils % (Manual) 0 % (0-2) Band Neutrophils 0 % (0-8) Platelet Estimate Adequate Platelet Morphology Normal Hypochromasia 1+ Anisocytosis 2+ Microcytosis 2+ Sodium Level 139 MMOL/L (136-145) Potassium Level 3.1 MMOL/L (3.5-5.1) L Chloride Level 106 MMOL/L (98-107) Carbon Dioxide Level 26 MMOL/L (21-32) Anion Gap 7 mmol/L (5-15) Blood Urea Nitrogen 21 mg/dL (7-18) H Creatinine 0.7 MG/DL (0.55-1.30) Estimat Glomerular Filtration Rate > 60 mL/min (>60) Glucose Level 82 MG/DL (74-106) Uric Acid 3.9 MG/DL (2.6-7.2) Calcium Level 6.5 MG/DL (8.5-10.1) L Phosphorus Level 3.0 MG/DL (2.5-4.9) Magnesium Level 1.4 MG/DL (1.8-2.4) L Total Bilirubin 0.9 MG/DL (0.2-1.0) Gamma Glutamyl Transpeptidase 82 U/L (5-85) Aspartate Amino Transf (AST/SGOT) 16 U/L (15-37) Alanine Aminotransferase (ALT/SGPT) 29 U/L (12-78) Alkaline Phosphatase 117 U/L (46-116) H C-Reactive Protein, Quantitative 11.4 mg/dL (0.00-0.90) H Pro-B-Type Natriuretic Peptide 225 pg/mL (0-125) H Total Protein 5.9 G/DL (6.4-8.2) L Albumin 2.0 G/DL (3.4-5.0) L Globulin 3.9 g/dL Albumin/Globulin Ratio 0.5 (1.0-2.7) L Current Medications Medications (Trade) Dose Ordered Sig/Prince Route PRN Reason Start Time Stop Time Status Last Admin Dose Admin Acetaminophen (Tylenol) 650 mg Q4H PRN NG Mild Pain/Temp > 100.5 10/30/17 17:00 11/29/17 16:59 Acetylcysteine (Mucomyst) 200 mg Q6HRT HHN 10/30/17 19:00 11/28/17 07:59 10/31/17 08:30 Albuterol/ Ipratropium (Albuterol/ Ipratropium) 3 ml Q4H PRN HHN Shortness of Breath 10/30/17 16:00 10/31/17 11:59 10/31/17 08:30 Chlorhexidine Gluconate (Sol-Hex 2%) 1 applic DAILY@2000 TOPIC 10/30/17 20:00 11/08/17 19:59 10/30/17 20:50 Dextrose (Dextrose 50%) STAT PRN IV Hypoglycemia 10/31/17 11:00 11/11/17 10:59 Docusate Sodium (Colace) 100 mg BID GT 10/30/17 18:00 11/12/17 16:59 10/31/17 09:26 Heparin Sodium (Porcine) (Heparin 5000 units/ml) 5,000 units DAILY SUBQ 10/31/17 09:00 11/07/17 10:59 10/31/17 09:27 Insulin Aspart (NovoLOG) BEFORE MEALS AND HS SUBQ 10/30/17 16:30 11/11/17 11:29 10/30/17 16:30 Magnesium Hydroxide (Mom) 30 ml DAILYPRN PRN GT Constipation 10/30/17 16:30 11/12/17 16:29 Magnesium Sulfate 100 ml @ 100 mls/hr Q1H IVPB 10/31/17 09:45 10/31/17 13:44 10/31/17 10:45 Methylprednisolone Sodium Succinate (Solu-MEDROL) 10 mg Q12HR IVP 10/30/17 21:00 11/28/17 20:59 10/31/17 09:25 Pantoprazole (Protonix) 40 mg DAILY IV 10/31/17 09:00 11/06/17 10:59 10/31/17 09:26 Potassium Chloride 50 meq/ Sodium Chloride 575 ml @ 115 mls/hr ONCE ONCE IVPB 10/31/17 11:00 10/31/17 15:59 Evelin Lam M.D. Oct 31, 2017 11:32
[2017-10-31 12:00] VITALS: BP 112/73
--- NOTE | 2017-10-31 12:15 | General Progress Note ---
Assessment/Plan Status: stable Assessment/Plan 1. ARDS-Hypoxemic respiratory failure. Resolved 3.Sepsis: Aspiration Gram negative HCA-PNA : Resolved 4. Gram negative HCA-PNA : Resolved 5. Cellulitis of the scrotal area. 6. Morbid obesity. 7. ARF 8. Obstructive uropathy 9. Thrombocytopenia. 10. DM-2 11. Anemia. 12. Gastrointestinal and deep vein thrombosis prophylaxes. 13. Psoriasis PLAN OF CARE: NOtes from Infectious Diseases Dr. Pineda, Nephrology, Dr Urrutia, reviewed S/p self extubation current management DC plan to SNIF Subjective ROS Limited/Unobtainable: No Constitutional: Reports: malaise HEENT: Reports: no symptoms Cardiovascular: Reports: no symptoms Respiratory: Reports: shortness of breath Allergies: Coded Allergies: No Known Allergies (Unverified , 10/06/17) Subjective general weakness Objective Last 24 Hour Vital Signs Date Time Temp Pulse Resp B/P (MAP) Pulse Ox O2 Delivery O2 Flow Rate FiO2 10/31/17 08:23 Nasal Cannula 4.0 36 10/31/17 08:23 96 Nasal Cannula 4.0 36 10/31/17 08:23 91 18 99 Nasal Cannula 4.0 36 10/31/17 08:20 90 20 94 Nasal Cannula 4.0 36 10/31/17 08:00 100.0 95 20 123/68 95 10/31/17 04:00 98.0 93 18 116/68 90 10/31/17 01:11 89 18 99 Nasal Cannula 4.0 36 10/31/17 00:59 84 20 96 Nasal Cannula 4.0 36 10/31/17 00:00 97.9 95 21 114/76 100 10/30/17 20:20 93 18 99 Nasal Cannula 4.0 36 10/30/17 20:12 97 Nasal Cannula 4.0 36 10/30/17 20:12 Nasal Cannula 4.0 36 10/30/17 20:05 88 20 95 Nasal Cannula 4.0 36 10/30/17 20:00 98.4 87 21 117/64 94 10/30/17 16:00 100.1 96 20 123/79 93 10/30/17 12:47 87 18 99 Nasal Cannula 4.0 36 10/30/17 12:36 95 20 93 Nasal Cannula 4.0 36 Intake and Output 10/30/17 10/31/17 19:00 07:00 Intake Total 360 ml Output Total 1300 ml Balance -940 ml Intake Oral 360 ml Output Urine Total 1300 ml Laboratory Tests 10/31/17 05:00: White Blood Count 13.9H, Red Blood Count 6.76H, Hemoglobin 12.6L, Hematocrit 44.2, Mean Corpuscular Volume 65L, Mean Corpuscular Hemoglobin 18.6L, Mean Corpuscular Hemoglobin Concent 28.5L, Red Cell Distribution Width 21.3H, Platelet Count 178, Mean Platelet Volume 9.9, Neutrophils (%) (Auto) , Lymphocytes (%) (Auto) , Monocytes (%) (Auto) , Eosinophils (%) (Auto) , Basophils (%) (Auto) , Differential Total Cells Counted 100, Neutrophils % ( Manual) 92H, Lymphocytes % (Manual) 5L, Monocytes % (Manual) 3, Eosinophils % ( Manual) 0, Basophils % (Manual) 0, Band Neutrophils 0, Platelet Estimate Adequate, Platelet Morphology Normal, Hypochromasia 1+, Anisocytosis 2+, Microcytosis 2+, Sodium Level 139, Potassium Level 3.1L, Chloride Level 106, Carbon Dioxide Level 26, Anion Gap 7, Blood Urea Nitrogen 21H, Creatinine 0.7, Estimat Glomerular Filtration Rate > 60, Glucose Level 82, Uric Acid 3.9, Calcium Level 6.5L, Phosphorus Level 3.0, Magnesium Level 1.4L, Total Bilirubin 0.9, Gamma Glutamyl Transpeptidase 82, Aspartate Amino Transf (AST/SGOT) 16, Alanine Aminotransferase (ALT/SGPT) 29, Alkaline Phosphatase 117H, C-Reactive Protein, Quantitative 11.4H, Pro-B-Type Natriuretic Peptide 225H, Total Protein 5.9L, Albumin 2.0L, Globulin 3.9, Albumin/Globulin Ratio 0.5L Height (Feet): 5 Height (Inches): 4.00 Weight (Pounds): 356 General Appearance: no apparent distress EENT: PERRL/EOMI Neck: supple Cardiovascular: normal rate Respiratory/Chest: rhonchi - bilaterally Abdomen: soft, other - obese Extremities: non-tender, other - deconditioning Neurologic: speech professor II-XII grossly normal Nery Combs MD Oct 31, 2017 12:15
[2017-10-31] MEDS ORDERED: Albuterol/Ipratropium 3ml neb HHN SCH (14:00)
--- NOTE | 2017-10-31 15:13 | Nephrology Progress Note ---
Assessment/Plan Problem List: (1) Acute respiratory failure Assessment: self extubated 10/24 (2) Acute renal failure Assessment: with previous urinary out let obstruction Assessment no labs today s/p Acute renal failure- Cr WNL Acute Respiratory distress , ? aspiration pneumonia, intubated ARDS Now extubated and doing well s/p Acute Pulmonary edema scotal cellutis Morbid obesity. Thrombocytopenia. Abnormal blood sugar. Anemia. Plan Plan: mag supp. Vit D per consultants K and Mag supplement as needed Keep BP in check monitor renal parameters per consultants / pulmonary per orders Left ventricular ejection fraction estimated to be grossly normal. Mild left ventricular hypertrophy. Subjective ROS Limited/Unobtainable: No Objective Objective Last 24 Hour Vital Signs Date Time Temp Pulse Resp B/P (MAP) Pulse Ox O2 Delivery O2 Flow Rate FiO2 10/31/17 14:43 90 18 98 Nasal Cannula 4.0 36 10/31/17 14:24 87 20 95 Nasal Cannula 4.0 36 10/31/17 12:00 98.2 99 20 112/73 92 10/31/17 08:23 Nasal Cannula 4.0 36 10/31/17 08:23 96 Nasal Cannula 4.0 36 10/31/17 08:23 91 18 99 Nasal Cannula 4.0 36 10/31/17 08:20 90 20 94 Nasal Cannula 4.0 36 10/31/17 08:00 100.0 95 20 123/68 95 10/31/17 04:00 98.0 93 18 116/68 90 10/31/17 01:11 89 18 99 Nasal Cannula 4.0 36 10/31/17 00:59 84 20 96 Nasal Cannula 4.0 36 10/31/17 00:00 97.9 95 21 114/76 100 10/30/17 20:20 93 18 99 Nasal Cannula 4.0 36 10/30/17 20:12 97 Nasal Cannula 4.0 36 10/30/17 20:12 Nasal Cannula 4.0 36 10/30/17 20:05 88 20 95 Nasal Cannula 4.0 36 10/30/17 20:00 98.4 87 21 117/64 94 10/30/17 16:00 100.1 96 20 123/79 93 Intake and Output 10/30/17 10/31/17 19:00 07:00 Intake Total 360 ml Output Total 1300 ml Balance -940 ml Intake Oral 360 ml Output Urine Total 1300 ml Laboratory Tests 10/31/17 05:00: White Blood Count 13.9H, Red Blood Count 6.76H, Hemoglobin 12.6L, Hematocrit 44.2, Mean Corpuscular Volume 65L, Mean Corpuscular Hemoglobin 18.6L, Mean Corpuscular Hemoglobin Concent 28.5L, Red Cell Distribution Width 21.3H, Platelet Count 178, Mean Platelet Volume 9.9, Neutrophils (%) (Auto) , Lymphocytes (%) (Auto) , Monocytes (%) (Auto) , Eosinophils (%) (Auto) , Basophils (%) (Auto) , Differential Total Cells Counted 100, Neutrophils % ( Manual) 92H, Lymphocytes % (Manual) 5L, Monocytes % (Manual) 3, Eosinophils % ( Manual) 0, Basophils % (Manual) 0, Band Neutrophils 0, Platelet Estimate Adequate, Platelet Morphology Normal, Hypochromasia 1+, Anisocytosis 2+, Microcytosis 2+, Sodium Level 139, Potassium Level 3.1L, Chloride Level 106, Carbon Dioxide Level 26, Anion Gap 7, Blood Urea Nitrogen 21H, Creatinine 0.7, Estimat Glomerular Filtration Rate > 60, Glucose Level 82, Uric Acid 3.9, Calcium Level 6.5L, Phosphorus Level 3.0, Magnesium Level 1.4L, Total Bilirubin 0.9, Gamma Glutamyl Transpeptidase 82, Aspartate Amino Transf (AST/SGOT) 16, Alanine Aminotransferase (ALT/SGPT) 29, Alkaline Phosphatase 117H, C-Reactive Protein, Quantitative 11.4H, Pro-B-Type Natriuretic Peptide 225H, Total Protein 5.9L, Albumin 2.0L, Globulin 3.9, Albumin/Globulin Ratio 0.5L Height (Feet): 5 Height (Inches): 4.00 Weight (Pounds): 356 General Appearance: no apparent distress Objective no other change JAY YANCEY Oct 31, 2017 15:13
[2017-10-31 16:00] VITALS: BP 119/65
[2017-10-31] MEDS ORDERED: Vitamin D 50,000 units cap ORAL SCH (17:00)
--- NOTE | 2017-10-31 19:33 | Pulmonology Progress Note ---
Assessment/Plan Problems: (1) Acute respiratory failure (2) ARDS (adult respiratory distress syndrome) (3) Weakness (4) scotal cellutis Assessment/Plan improving respiratory treatment on low dose steroids pt/ot abs as per Id Med /surg dc planning Subjective ROS Limited/Unobtainable: No Constitutional: Reports: no symptoms HEENT: Repors: no symptoms Respiratory: Reports: no symptoms Allergies: Coded Allergies: No Known Allergies (Unverified , 10/06/17) Objective Last 24 Hour Vital Signs Date Time Temp Pulse Resp B/P (MAP) Pulse Ox O2 Delivery O2 Flow Rate FiO2 10/31/17 16:00 98.1 96 20 119/65 94 10/31/17 15:16 90 18 98 Nasal Cannula 4.0 36 10/31/17 14:43 90 18 98 Nasal Cannula 4.0 36 10/31/17 14:24 87 20 95 Nasal Cannula 4.0 36 10/31/17 12:00 98.2 99 20 112/73 92 10/31/17 08:23 Nasal Cannula 4.0 36 10/31/17 08:23 96 Nasal Cannula 4.0 36 10/31/17 08:23 91 18 99 Nasal Cannula 4.0 36 10/31/17 08:20 90 20 94 Nasal Cannula 4.0 36 10/31/17 08:00 100.0 95 20 123/68 95 10/31/17 04:00 98.0 93 18 116/68 90 10/31/17 01:11 89 18 99 Nasal Cannula 4.0 36 10/31/17 00:59 84 20 96 Nasal Cannula 4.0 36 10/31/17 00:00 97.9 95 21 114/76 100 10/30/17 20:20 93 18 99 Nasal Cannula 4.0 36 10/30/17 20:12 97 Nasal Cannula 4.0 36 10/30/17 20:12 Nasal Cannula 4.0 36 10/30/17 20:05 88 20 95 Nasal Cannula 4.0 36 10/30/17 20:00 98.4 87 21 117/64 94 Intake and Output 10/30/17 10/31/17 19:00 07:00 Intake Total 360 ml Output Total 1300 ml Balance -940 ml Intake Oral 360 ml Output Urine Total 1300 ml Objective General Appearance: WD/WN HEENT: normocephalic, atraumatic Respiratory/Chest: chest wall non-tender, lungs clear Abdomen: normal bowel sounds, soft, non tender Genitourinary: normal external genitalia Skin: no lesions Laboratory Tests 10/31/17 05:00: White Blood Count 13.9H, Red Blood Count 6.76H, Hemoglobin 12.6L, Hematocrit 44.2, Mean Corpuscular Volume 65L, Mean Corpuscular Hemoglobin 18.6L, Mean Corpuscular Hemoglobin Concent 28.5L, Red Cell Distribution Width 21.3H, Platelet Count 178, Mean Platelet Volume 9.9, Neutrophils (%) (Auto) , Lymphocytes (%) (Auto) , Monocytes (%) (Auto) , Eosinophils (%) (Auto) , Basophils (%) (Auto) , Differential Total Cells Counted 100, Neutrophils % ( Manual) 92H, Lymphocytes % (Manual) 5L, Monocytes % (Manual) 3, Eosinophils % ( Manual) 0, Basophils % (Manual) 0, Band Neutrophils 0, Platelet Estimate Adequate, Platelet Morphology Normal, Hypochromasia 1+, Anisocytosis 2+, Microcytosis 2+, Sodium Level 139, Potassium Level 3.1L, Chloride Level 106, Carbon Dioxide Level 26, Anion Gap 7, Blood Urea Nitrogen 21H, Creatinine 0.7, Estimat Glomerular Filtration Rate > 60, Glucose Level 82, Uric Acid 3.9, Calcium Level 6.5L, Phosphorus Level 3.0, Magnesium Level 1.4L, Total Bilirubin 0.9, Gamma Glutamyl Transpeptidase 82, Aspartate Amino Transf (AST/SGOT) 16, Alanine Aminotransferase (ALT/SGPT) 29, Alkaline Phosphatase 117H, C-Reactive Protein, Quantitative 11.4H, Pro-B-Type Natriuretic Peptide 225H, Total Protein 5.9L, Albumin 2.0L, Globulin 3.9, Albumin/Globulin Ratio 0.5L Current Medications Medications (Trade) Dose Ordered Sig/Prince Route PRN Reason Start Time Stop Time Status Last Admin Dose Admin Acetaminophen (Tylenol) 650 mg Q4H PRN NG Mild Pain/Temp > 100.5 10/30/17 17:00 11/29/17 16:59 Acetylcysteine (Mucomyst) 200 mg Q6HRT HHN 10/30/17 19:00 11/28/17 07:59 10/31/17 14:00 Albuterol/ Ipratropium (Albuterol/ Ipratropium) 3 ml Q6H PRN HHN Shortness of Breath 10/31/17 15:00 11/05/17 14:59 10/31/17 14:23 Chlorhexidine Gluconate (Sol-Hex 2%) 1 applic DAILY@2000 TOPIC 10/30/17 20:00 11/08/17 19:59 10/30/17 20:50 Dextrose (Dextrose 50%) STAT PRN IV Hypoglycemia 10/31/17 11:00 11/11/17 10:59 Docusate Sodium (Colace) 100 mg BID GT 10/30/17 18:00 11/12/17 16:59 10/31/17 18:10 Ergocalciferol (Drisdol) 50,000 intlu QWEEK@1800 ORAL 10/31/17 17:00 11/30/17 16:59 10/31/17 18:11 Heparin Sodium (Porcine) (Heparin 5000 units/ml) 5,000 units DAILY SUBQ 10/31/17 09:00 11/07/17 10:59 10/31/17 09:27 Insulin Aspart (NovoLOG) BEFORE MEALS AND HS SUBQ 10/30/17 16:30 11/11/17 11:29 10/31/17 16:59 Magnesium Hydroxide (Mom) 30 ml DAILYPRN PRN GT Constipation 10/30/17 16:30 11/12/17 16:29 Methylprednisolone Sodium Succinate (Solu-MEDROL) 10 mg Q12HR IVP 10/30/17 21:00 11/28/17 20:59 10/31/17 09:25 Pantoprazole (Protonix) 40 mg DAILY IV 10/31/17 09:00 11/06/17 10:59 10/31/17 09:26 DWAYNE GROSS Oct 31, 2017 19:33
[2017-10-31 20:00] VITALS: BP 112/78
[2017-10-31] MEDS: Dyna-Hex 2% Top Sol 2oz TOPIC SCH (21:20)
[2017-11-01] VITALS: BP 117/81
[2017-11-01 04:00] VITALS: BP 127/74
[2017-11-01] MEDS: NovoLOG Insulin Flexpen SUBQ SCH ×4 (05:22→20:41)
[2017-11-01 08:00] VITALS: BP 120/73
[2017-11-01] MEDS: Albuterol/Ipratropium 3ml neb HHN PRN ×3 (08:29→20:17)
[2017-11-01] MEDS: Pantoprazole Inj IV SCH (08:57)
[2017-11-01] MEDS: Docusate 100mg/10ml Liq GT SCH ×2 (08:57→17:22)
[2017-11-01] MEDS: Solu-MEDROL 40mg Inj IVP SCH ×2 (08:58→20:41)
[2017-11-01] MEDS: Heparin 5000 units/ml inj SUBQ SCH (08:58)
--- NOTE | 2017-11-01 10:28 | Diagnostic Imaging Report ---
Indication: Dyspnea Technique: One view of the chest Comparison: 10/29/2017 Findings: Interim improvement of previously demonstrated right mid and lower lung infiltrates, with mild residual. The heart remains enlarged. Right arm PICC remains. Contrast from recent swallowing study is seen within the colon Impression: Improving right middle lower lung infiltrates, over 3 days Stable cardiomegaly Other findings as noted
[2017-11-01 11:43] VITALS: BP 128/79
--- NOTE | 2017-11-01 11:52 | Nephrology Progress Note ---
Assessment/Plan Problem List: (1) Acute respiratory failure Assessment: self extubated 10/24 (2) Acute renal failure Assessment: with previous urinary out let obstruction Assessment no labs today s/p Acute renal failure- Cr WNL Acute Respiratory distress , ? aspiration pneumonia, intubated ARDS Now extubated and doing well s/p Acute Pulmonary edema scotal cellutis Morbid obesity. Thrombocytopenia. Abnormal blood sugar. Anemia. Plan Plan: mag iv and K IV given 1/3 no labs today Vit D per consultants K and Mag supplement as needed Keep BP in check monitor renal parameters per consultants / pulmonary per orders Left ventricular ejection fraction estimated to be grossly normal. Mild left ventricular hypertrophy. Subjective ROS Limited/Unobtainable: No Objective Objective Last 24 Hour Vital Signs Date Time Temp Pulse Resp B/P (MAP) Pulse Ox O2 Delivery O2 Flow Rate FiO2 11/01/17 11:43 98.2 94 21 128/79 96 11/01/17 08:41 85 18 98 Nasal Cannula 4.0 36 11/01/17 08:30 95 Nasal Cannula 4.0 36 11/01/17 08:30 88 20 95 Nasal Cannula 4.0 36 11/01/17 08:30 Nasal Cannula 4.0 36 11/01/17 08:00 97.5 92 20 120/73 80 11/01/17 04:00 95 Nasal Cannula 4.0 11/01/17 04:00 98.1 85 20 127/74 95 11/01/17 00:30 Nasal Cannula 4.0 36 11/01/17 00:29 Nasal Cannula 4.0 36 11/01/17 00:00 93 Nasal Cannula 4.0 11/01/17 00:00 98.8 82 20 117/81 93 10/31/17 20:40 82 18 98 Nasal Cannula 4.0 36 10/31/17 20:40 96 Nasal Cannula 4.0 36 10/31/17 20:29 Nasal Cannula 4.0 36 10/31/17 20:29 90 20 94 Nasal Cannula 4.0 36 10/31/17 20:00 91 Nasal Cannula 4.0 10/31/17 20:00 99.6 89 22 112/78 91 10/31/17 16:00 98.1 96 20 119/65 94 10/31/17 15:16 90 18 98 Nasal Cannula 4.0 36 10/31/17 14:43 90 18 98 Nasal Cannula 4.0 36 10/31/17 14:24 87 20 95 Nasal Cannula 4.0 36 10/31/17 12:00 98.2 99 20 112/73 92 Intake and Output 10/31/17 11/01/17 19:00 07:00 Intake Total 1115 ml Balance 1115 ml Intake Oral 240 ml IV Total 875 ml Height (Feet): 5 Height (Inches): 4.00 Weight (Pounds): 356 General Appearance: no apparent distress Cardiovascular: normal rate Respiratory/Chest: decreased breath sounds Abdomen: soft Objective no other change JAY YANCEY Nov 01, 2017 11:52
--- NOTE | 2017-11-01 12:51 | General Progress Note ---
Assessment/Plan Status: stable Assessment/Plan 1. ARDS-Hypoxemic respiratory failure. Resolved 3.Sepsis: Aspiration Gram negative HCA-PNA : Resolved 4. Gram negative HCA-PNA : Resolved 5. Cellulitis of the scrotal area. 6. Morbid obesity. 7. ARF 8. Obstructive uropathy 9. Thrombocytopenia. 10. DM-2 11. Anemia. 12. Gastrointestinal and deep vein thrombosis prophylaxes. 13. Psoriasis PLAN OF CARE: NOtes from Infectious Diseases Dr. Pineda, Nephrology, Dr Urrutia, reviewed S/p self extubation current management DC plan to SNIF Subjective ROS Limited/Unobtainable: No Allergies: Coded Allergies: No Known Allergies (Unverified , 10/06/17) Subjective general weakness Objective Last 24 Hour Vital Signs Date Time Temp Pulse Resp B/P (MAP) Pulse Ox O2 Delivery O2 Flow Rate FiO2 11/01/17 11:43 98.2 94 21 128/79 96 11/01/17 08:41 85 18 98 Nasal Cannula 4.0 36 11/01/17 08:30 95 Nasal Cannula 4.0 36 11/01/17 08:30 88 20 95 Nasal Cannula 4.0 36 11/01/17 08:30 Nasal Cannula 4.0 36 11/01/17 08:00 97.5 92 20 120/73 80 11/01/17 04:00 95 Nasal Cannula 4.0 11/01/17 04:00 98.1 85 20 127/74 95 11/01/17 00:30 Nasal Cannula 4.0 36 11/01/17 00:29 Nasal Cannula 4.0 36 11/01/17 00:00 93 Nasal Cannula 4.0 11/01/17 00:00 98.8 82 20 117/81 93 10/31/17 20:40 82 18 98 Nasal Cannula 4.0 36 10/31/17 20:40 96 Nasal Cannula 4.0 36 10/31/17 20:29 Nasal Cannula 4.0 36 10/31/17 20:29 90 20 94 Nasal Cannula 4.0 36 10/31/17 20:00 91 Nasal Cannula 4.0 10/31/17 20:00 99.6 89 22 112/78 91 10/31/17 16:00 98.1 96 20 119/65 94 10/31/17 15:16 90 18 98 Nasal Cannula 4.0 36 10/31/17 14:43 90 18 98 Nasal Cannula 4.0 36 10/31/17 14:24 87 20 95 Nasal Cannula 4.0 36 Intake and Output 10/31/17 11/01/17 19:00 07:00 Intake Total 1115 ml Balance 1115 ml Intake Oral 240 ml IV Total 875 ml Height (Feet): 5 Height (Inches): 4.00 Weight (Pounds): 356 General Appearance: no apparent distress EENT: PERRL/EOMI Neck: supple Cardiovascular: normal rate Abdomen: soft Extremities: non-tender Neurologic: coal deliverer II-XII grossly normal Nery Combs MD Nov 01, 2017 12:51
[2017-11-01 15:53] VITALS: BP 131/81
[2017-11-01 16:37] LABS: ALANINE AMINOTRANSFERASE 44 U/L (12-78); ALBUMIN 2.7 G/DL (3.4-5.0); ALBUMIN/GLOBULIN RATIO 0.5 (1.0-2.7); ALKALINE PHOSPHATASE 159 U/L (46-116); ANION GAP 6 mmol/L (5-15); ASPARTATE AMINO TRANSFERASE 21 U/L (15-37); BILIRUBIN,TOTAL 1.2 MG/DL (0.2-1.0); BLOOD UREA NITROGEN 25 mg/dL (7-18); CALCIUM 8.4 MG/DL (8.5-10.1); CARBON DIOXIDE 29 MMOL/L (21-32); CHLORIDE 100 MMOL/L (98-107); CREATININE 0.9 MG/DL (0.55-1.30); PHOSPHORUS 3.4 MG/DL (2.5-4.9); POTASSIUM 4.1 MMOL/L (3.5-5.1); SODIUM 135 MMOL/L (136-145)
[2017-11-01 16:39] LABS: BILIRUBIN,DIRECT 0.4 MG/DL (0.0-0.3)
--- NOTE | 2017-11-01 19:01 | Infectious Diseases Prog Note ---
Assessment/Plan Assessment/Plan ASSESSMENT: The patient is a 42-year-old male with, Possible aspiration pneumonia versus community-acquired pneumonia. Scx : P mirabilis -s/p Rx ; improving -11/01 CXR: Improving right middle lower lung infiltrates, over 3 days. Stable cardiomegaly 10/29 cXR: Infiltrate at the right lung base appears similar. =10/27: Overall improved aeration with decrease in interstitial opacification/ edema and decrease in right lower lung patchy airspace opacities. Some right lower lung opacities persist. -sp cx 10/24 normal bandar -BAL cx 10/18 neg 10/25 CXR: Stable or perhaps slightly improved diffuse bilateral interstitial and airspace edema versus infiltrates, over one day 10/13 C-Xray worsening of infiltrate vs edema -cocci ID neg, Cocci CF unable to obtain given presence of anticomplementary activity -histo ag urine p Leukocytosis ( on steroids ) -improving 10/21 u/a neg,ucx NTD, BCx neg CRP decreasing Intermittent low grade fevers- improving Probable scrotal cellulitis versus discoloration of genitalia due to edema; resolved CRP 09/15 >>4.3 10/24 HIV , Crypt, Aspergillus ab : neg U leg Ab and Ag: neg ARDS CORA improving PICC 10/09 VDRF self extub and reintubated 10/19; extubated 10/24 Congestive heart failure. PLAN: Continue to monitor off abx unless worsening fevers/ leukocytosis or increased O2 requiremetns 10/29 SP IV Vanco #10 10/27 SP Diflucan #10 10/27 Meropenem #14 10/17 sp vancomycin and Doxy d# 10 / 10 10/13 sp Zosyn d# 5 Monitor CBC/CMP; CXR am Monitor chest x-ray Histo :P Fungitell Subjective Allergies: Coded Allergies: No Known Allergies (Unverified , 10/06/17) Subjective afebrile in alsmot 36hrs leukocytosis and CXR improvnig off abx Objective Vital Signs Last 24 Hour Vital Signs Date Time Temp Pulse Resp B/P (MAP) Pulse Ox O2 Delivery O2 Flow Rate FiO2 11/01/17 16:00 Nasal Cannula 4.0 11/01/17 15:53 98.0 95 20 131/81 95 11/01/17 15:02 95 18 98 Nasal Cannula 4.0 36 11/01/17 14:48 94 20 98 Nasal Cannula 4.0 36 11/01/17 12:00 Nasal Cannula 4.0 11/01/17 11:43 98.2 94 21 128/79 96 11/01/17 08:41 85 18 98 Nasal Cannula 4.0 36 11/01/17 08:30 95 Nasal Cannula 4.0 36 11/01/17 08:30 88 20 95 Nasal Cannula 4.0 36 11/01/17 08:30 Nasal Cannula 4.0 36 11/01/17 08:00 Nasal Cannula 4.0 11/01/17 08:00 97.5 92 20 120/73 80 11/01/17 04:00 95 Nasal Cannula 4.0 11/01/17 04:00 98.1 85 20 127/74 95 11/01/17 00:30 Nasal Cannula 4.0 36 11/01/17 00:29 Nasal Cannula 4.0 36 11/01/17 00:00 93 Nasal Cannula 4.0 11/01/17 00:00 98.8 82 20 117/81 93 10/31/17 20:40 82 18 98 Nasal Cannula 4.0 36 10/31/17 20:40 96 Nasal Cannula 4.0 36 10/31/17 20:29 Nasal Cannula 4.0 36 10/31/17 20:29 90 20 94 Nasal Cannula 4.0 36 10/31/17 20:00 91 Nasal Cannula 4.0 10/31/17 20:00 99.6 89 22 112/78 91 Height (Feet): 5 Height (Inches): 4.00 Weight (Pounds): 356 Objective HEENT: atraumatic, normocephalic, other - Venturi Mask in place Lungs: rhonchi - scattered anterior Heart: RRR Abdomen: soft, non-tender, active bowel sounds Extremities: no C/C/E Genitalia:Scrotal edema, improved Laboratory Tests Test 11/01/17 15:00 Sodium Level 135 MMOL/L (136-145) L Potassium Level 4.1 MMOL/L (3.5-5.1) Chloride Level 100 MMOL/L (98-107) Carbon Dioxide Level 29 MMOL/L (21-32) Anion Gap 6 mmol/L (5-15) Blood Urea Nitrogen 25 mg/dL (7-18) H Creatinine 0.9 MG/DL (0.55-1.30) Estimat Glomerular Filtration Rate > 60 mL/min (>60) Glucose Level 110 MG/DL (74-106) H Calcium Level 8.4 MG/DL (8.5-10.1) #L Phosphorus Level 3.4 MG/DL (2.5-4.9) Magnesium Level 1.9 MG/DL (1.8-2.4) Total Bilirubin 1.2 MG/DL (0.2-1.0) H Direct Bilirubin 0.4 MG/DL (0.0-0.3) H Aspartate Amino Transf (AST/SGOT) 21 U/L (15-37) Alanine Aminotransferase (ALT/SGPT) 44 U/L (12-78) Alkaline Phosphatase 159 U/L (46-116) H Total Protein 7.8 G/DL (6.4-8.2) # Albumin 2.7 G/DL (3.4-5.0) L Globulin 5.1 g/dL Albumin/Globulin Ratio 0.5 (1.0-2.7) L Current Medications Medications (Trade) Dose Ordered Sig/Prince Route PRN Reason Start Time Stop Time Status Last Admin Dose Admin Acetaminophen (Tylenol) 650 mg Q4H PRN NG Mild Pain/Temp > 100.5 10/30/17 17:00 11/29/17 16:59 Acetylcysteine (Mucomyst) 200 mg Q6HRT HHN 10/30/17 19:00 11/28/17 07:59 11/01/17 14:48 Albuterol/ Ipratropium (Albuterol/ Ipratropium) 3 ml Q6H PRN HHN Shortness of Breath 10/31/17 15:00 11/05/17 14:59 11/01/17 14:48 Chlorhexidine Gluconate (Sol-Hex 2%) 1 applic DAILY@1999 TOPIC 10/30/17 20:00 11/08/17 19:59 10/31/17 21:20 Dextrose (Dextrose 50%) STAT PRN IV Hypoglycemia 10/31/17 11:00 11/11/17 10:59 Docusate Sodium (Colace) 100 mg BID GT 10/30/17 18:00 11/12/17 16:59 11/01/17 17:22 Ergocalciferol (Drisdol) 50,000 intlu QWEEK@1800 ORAL 10/31/17 17:00 11/30/17 16:59 10/31/17 18:11 Heparin Sodium (Porcine) (Heparin 5000 units/ml) 5,000 units DAILY SUBQ 10/31/17 09:00 11/07/17 10:59 11/01/17 08:58 Insulin Aspart (NovoLOG) BEFORE MEALS AND HS SUBQ 10/30/17 16:30 11/11/17 11:29 11/01/17 05:22 Magnesium Hydroxide (Mom) 30 ml DAILYPRN PRN GT Constipation 10/30/17 16:30 11/12/17 16:29 Methylprednisolone Sodium Succinate (Solu-MEDROL) 10 mg Q12HR IVP 10/30/17 21:00 11/28/17 20:59 11/01/17 08:58 Pantoprazole (Protonix) 40 mg DAILY IV 10/31/17 09:00 11/06/17 10:59 11/01/17 08:57 Evelin Lam M.D. Nov 01, 2017 19:01
[2017-11-01 20:00] VITALS: BP 123/70
[2017-11-01] MEDS: Dyna-Hex 2% Top Sol 2oz TOPIC SCH (20:40)
--- NOTE | 2017-11-01 22:15 | Pulmonology Progress Note ---
Assessment/Plan Problems: (1) Acute respiratory failure (2) ARDS (adult respiratory distress syndrome) (3) Weakness (4) scotal cellutis Assessment/Plan improving respiratory treatment on low dose steroids pt/ot abs as per Id Med /surg dc planning Subjective ROS Limited/Unobtainable: No Allergies: Coded Allergies: No Known Allergies (Unverified , 10/06/17) Objective Last 24 Hour Vital Signs Date Time Temp Pulse Resp B/P (MAP) Pulse Ox O2 Delivery O2 Flow Rate FiO2 11/01/17 20:34 89 18 98 Nasal Cannula 4.0 36 11/01/17 20:19 99 Nasal Cannula 4.0 36 11/01/17 20:19 Nasal Cannula 4.0 36 11/01/17 20:18 84 20 99 Nasal Cannula 4.0 36 11/01/17 20:00 94 Nasal Cannula 4.0 11/01/17 20:00 98.2 79 18 123/70 94 11/01/17 16:00 Nasal Cannula 4.0 11/01/17 15:53 98.0 95 20 131/81 95 11/01/17 15:02 95 18 98 Nasal Cannula 4.0 36 11/01/17 14:48 94 20 98 Nasal Cannula 4.0 36 11/01/17 12:00 Nasal Cannula 4.0 11/01/17 11:43 98.2 94 21 128/79 96 11/01/17 08:41 85 18 98 Nasal Cannula 4.0 36 11/01/17 08:30 95 Nasal Cannula 4.0 36 11/01/17 08:30 88 20 95 Nasal Cannula 4.0 36 11/01/17 08:30 Nasal Cannula 4.0 36 11/01/17 08:00 Nasal Cannula 4.0 11/01/17 08:00 97.5 92 20 120/73 80 11/01/17 04:00 95 Nasal Cannula 4.0 11/01/17 04:00 98.1 85 20 127/74 95 11/01/17 00:30 Nasal Cannula 4.0 36 11/01/17 00:29 Nasal Cannula 4.0 36 11/01/17 00:00 93 Nasal Cannula 4.0 11/01/17 00:00 98.8 82 20 117/81 93 Intake and Output 10/31/17 11/01/17 19:00 07:00 Intake Total 1115 ml Balance 1115 ml Intake Oral 240 ml IV Total 875 ml Objective General Appearance: WD/WN HEENT: normocephalic, atraumatic Respiratory/Chest: chest wall non-tender, lungs clear Abdomen: normal bowel sounds, soft, non tender Genitourinary: normal external genitalia Skin: no lesions Laboratory Tests 11/01/17 15:00: Sodium Level 135L, Potassium Level 4.1, Chloride Level 100, Carbon Dioxide Level 29, Anion Gap 6, Blood Urea Nitrogen 25H, Creatinine 0.9, Estimat Glomerular Filtration Rate > 60, Glucose Level 110H, Calcium Level 8.4#L, Phosphorus Level 3.4, Magnesium Level 1.9, Total Bilirubin 1.2H, Direct Bilirubin 0.4H, Aspartate Amino Transf (AST/SGOT) 21, Alanine Aminotransferase ( ALT/SGPT) 44, Alkaline Phosphatase 159H, Total Protein 7.8#, Albumin 2.7L, Globulin 5.1, Albumin/Globulin Ratio 0.5L Current Medications Medications (Trade) Dose Ordered Sig/Prince Route PRN Reason Start Time Stop Time Status Last Admin Dose Admin Acetaminophen (Tylenol) 650 mg Q4H PRN NG Mild Pain/Temp > 100.5 10/30/17 17:00 11/29/17 16:59 Acetylcysteine (Mucomyst) 200 mg Q6HRT HHN 10/30/17 19:00 11/28/17 07:59 11/01/17 20:14 Albuterol/ Ipratropium (Albuterol/ Ipratropium) 3 ml Q6H PRN HHN Shortness of Breath 10/31/17 15:00 11/05/17 14:59 11/01/17 20:17 Chlorhexidine Gluconate (Sol-Hex 2%) 1 applic DAILY@2000 TOPIC 10/30/17 20:00 11/08/17 19:59 11/01/17 20:40 Dextrose (Dextrose 50%) STAT PRN IV Hypoglycemia 10/31/17 11:00 11/11/17 10:59 Docusate Sodium (Colace) 100 mg BID GT 10/30/17 18:00 11/12/17 16:59 11/01/17 17:22 Ergocalciferol (Drisdol) 50,000 intlu QWEEK@1800 ORAL 10/31/17 17:00 11/30/17 16:59 10/31/17 18:11 Heparin Sodium (Porcine) (Heparin 5000 units/ml) 5,000 units DAILY SUBQ 10/31/17 09:00 11/07/17 10:59 11/01/17 08:58 Insulin Aspart (NovoLOG) BEFORE MEALS AND HS SUBQ 10/30/17 16:30 11/11/17 11:29 11/01/17 05:22 Magnesium Hydroxide (Mom) 30 ml DAILYPRN PRN GT Constipation 10/30/17 16:30 11/12/17 16:29 Methylprednisolone Sodium Succinate (Solu-MEDROL) 10 mg Q12HR IVP 10/30/17 21:00 11/28/17 20:59 11/01/17 20:41 Pantoprazole (Protonix) 40 mg DAILY IV 10/31/17 09:00 11/06/17 10:59 11/01/17 08:57 DWAYNE GROSS Nov 01, 2017 22:15
[2017-11-02] VITALS: BP 120/73
[2017-11-02 03:26] VITALS: BP 156/69
[2017-11-02] MEDS: Albuterol/Ipratropium 3ml neb HHN PRN ×3 (04:01→20:11)
[2017-11-02] MEDS: NovoLOG Insulin Flexpen SUBQ SCH ×4 (06:10→20:45)
[2017-11-02 07:30] LABS: HEMATOCRIT 40.4 % (42.0-52.0); HEMOGLOBIN 11.7 G/DL (14.2-18.0); MEAN CORPUSCULAR VOLUME 66 FL (80-99); PLATELET COUNT 137 K/UL (150-450); RED BLOOD COUNT 6.15 M/UL (4.70-6.10); RED CELL DISTRIBUTION WIDTH 21.6 % (11.6-14.8); WHITE BLOOD COUNT 11.1 K/UL (4.8-10.8)
[2017-11-02 08:30] VITALS: BP 122/68
[2017-11-02] MEDS: Solu-MEDROL 40mg Inj IVP SCH ×2 (09:35→20:45)
[2017-11-02] MEDS: Docusate 100mg/10ml Liq GT SCH ×2 (09:35→18:41)
[2017-11-02] MEDS: Pantoprazole Inj IV SCH (09:36)
[2017-11-02] MEDS: Heparin 5000 units/ml inj SUBQ SCH (09:39)
--- NOTE | 2017-11-02 09:55 | Pulmonology Progress Note ---
Assessment/Plan Assessment/Plan ASSESSMENT Acute hypercapnic RF requiring intubation s/p self extubation ( few times) likely aspiration PNA with Proteus acute pulmonary edema ARDS likely obesity hyperventilation syndrome with chronic hypercapnia, severely exacerbated by ARDS Likely scrotal cellulitis Anasarca Urinary retention-relieved ARF likely ATN -resolved hypernatremia-improved Thrombocytopenia psoriasis morbid obesity new onset of diabetes PLAN OF CARE MS floor O2 via NS keep sat above 90% pulmonary toilet low dose steroids with tapering s/p abx ID follows sputum cx + Proteus, repeated sputum cx + Proteus; urine cx negative, blood cx negative CXR 10/22 with probable new infiltrate ( + leuk, + low grade fever) s/p bronch 10/18 with evidence of ARDS, extensive airway inflammation, but no active alveolar bleeding bronchial washing cx negative nephro follows creat down to normal s/p IVF no further IVF, spot diuresis prn , will give 1 small dose today monitor renal parameters, lytes, correct as need, avoid nephrotoxic prior: renal US with 1500cc urinary retention Carrington placed by urologist scrotal US noted elevate scrotum Venous Duplex BLE negative ECHO with grossly preserved EF, normal wall motion to the extent visualized Pain management DVT/GI prophylaxis Monitor counts [id number] new onset of DM BS management , started on a sensitive SSI prn , BS stable swallow eval passed started diet eval by PT done, needs max assistance with transfer and ambulation per PT extremely deconditioned, will have extensive PT Rx till Sunday and plan on dc home with walker get O2 sat on RA discussed with patient, who agreeable with the plan discussed with the patient that he can follow up with [facility] clinics for further ongoing care case discussed and evaluated by supervising physician Subjective Allergies: Coded Allergies: No Known Allergies (Unverified , 10/06/17) Subjective improving on O2 via NC on MS floor no signs of respiratory distress was eval by PT, needs max assistance with transfer and ambulation Objective Last 24 Hour Vital Signs Date Time Temp Pulse Resp B/P (MAP) Pulse Ox O2 Delivery O2 Flow Rate FiO2 11/02/17 09:46 89 20 99 Nasal Cannula 4.0 36 11/02/17 08:30 98.6 91 20 122/68 96 11/02/17 07:03 Nasal Cannula 4.0 36 11/02/17 07:03 99 Nasal Cannula 4.0 36 11/02/17 04:12 82 18 98 Nasal Cannula 4.0 36 11/02/17 04:01 86 20 96 Nasal Cannula 4.0 36 11/02/17 03:26 94 Nasal Cannula 4.0 11/02/17 03:26 98.1 89 20 156/69 94 Room Air 11/02/17 00:00 95 Nasal Cannula 4.0 11/02/17 00:00 97.9 88 18 120/73 95 11/01/17 20:34 89 18 98 Nasal Cannula 4.0 36 11/01/17 20:19 99 Nasal Cannula 4.0 36 11/01/17 20:19 Nasal Cannula 4.0 36 11/01/17 20:18 84 20 99 Nasal Cannula 4.0 36 11/01/17 20:00 94 Nasal Cannula 4.0 11/01/17 20:00 98.2 79 18 123/70 94 11/01/17 16:00 Nasal Cannula 4.0 11/01/17 15:53 98.0 95 20 131/81 95 11/01/17 15:02 95 18 98 Nasal Cannula 4.0 36 11/01/17 14:48 94 20 98 Nasal Cannula 4.0 36 11/01/17 12:00 Nasal Cannula 4.0 11/01/17 11:43 98.2 94 21 128/79 96 Intake and Output 11/01/17 11/02/17 19:00 07:00 Intake Total 500 ml Output Total 600 ml Balance -100 ml Intake Oral 500 ml Output Urine Total 600 ml Objective Status: awake, alert, responsive morbidly obese middle age male, HEENT: atraumatic, normocephalic, O2 via NC Lungs: clear Heart: HR/BP stable, RUE PICC intact Abdomen: soft, obese , active bowel sounds Skin: + dry plaques knee and elbow anterior surface Extremities: + 2 edema BLE Laboratory Tests 11/01/17 15:00: Sodium Level 135L, Potassium Level 4.1, Chloride Level 100, Carbon Dioxide Level 29, Anion Gap 6, Blood Urea Nitrogen 25H, Creatinine 0.9, Estimat Glomerular Filtration Rate > 60, Glucose Level 110H, Calcium Level 8.4#L, Phosphorus Level 3.4, Magnesium Level 1.9, Total Bilirubin 1.2H, Direct Bilirubin 0.4H, Aspartate Amino Transf (AST/SGOT) 21, Alanine Aminotransferase ( ALT/SGPT) 44, Alkaline Phosphatase 159H, Total Protein 7.8#, Albumin 2.7L, Globulin 5.1, Albumin/Globulin Ratio 0.5L 11/02/17 04:30: White Blood Count 11.1H, Red Blood Count 6.15H, Hemoglobin 11.7L, Hematocrit 40.4L, Mean Corpuscular Volume 66L, Mean Corpuscular Hemoglobin 19.0L, Mean Corpuscular Hemoglobin Concent 28.9L, Red Cell Distribution Width 21.6H, Platelet Count 137L, Mean Platelet Volume 8.8, Neutrophils (%) (Auto) , Lymphocytes (%) (Auto) , Monocytes (%) (Auto) , Eosinophils (%) (Auto) , Basophils (%) (Auto) , Neutrophils % (Manual) [Pending], Lymphocytes % (Manual) [Pending], Platelet Estimate [Pending], Platelet Morphology [Pending] Current Medications Medications (Trade) Dose Ordered Sig/Prince Route PRN Reason Start Time Stop Time Status Last Admin Dose Admin Acetaminophen (Tylenol) 650 mg Q4H PRN NG Mild Pain/Temp > 100.5 10/30/17 17:00 11/29/17 16:59 Acetylcysteine (Mucomyst) 200 mg Q6HRT HHN 10/30/17 19:00 11/28/17 07:59 11/02/17 09:41 Albuterol/ Ipratropium (Albuterol/ Ipratropium) 3 ml Q6H PRN HHN Shortness of Breath 10/31/17 15:00 11/05/17 14:59 11/02/17 09:41 Chlorhexidine Gluconate (Sol-Hex 2%) 1 applic DAILY@1999 TOPIC 10/30/17 20:00 11/08/17 19:59 11/01/17 20:40 Dextrose (Dextrose 50%) STAT PRN IV Hypoglycemia 10/31/17 11:00 11/11/17 10:59 Docusate Sodium (Colace) 100 mg BID GT 10/30/17 18:00 11/12/17 16:59 11/02/17 09:35 Ergocalciferol (Drisdol) 50,000 intlu QWEEK@1800 ORAL 10/31/17 17:00 11/30/17 16:59 10/31/17 18:11 Heparin Sodium (Porcine) (Heparin 5000 units/ml) 5,000 units DAILY SUBQ 10/31/17 09:00 11/07/17 10:59 11/02/17 09:39 Insulin Aspart (NovoLOG) BEFORE MEALS AND HS SUBQ 10/30/17 16:30 11/11/17 11:29 11/01/17 05:22 Magnesium Hydroxide (Mom) 30 ml DAILYPRN PRN GT Constipation 10/30/17 16:30 11/12/17 16:29 Methylprednisolone Sodium Succinate (Solu-MEDROL) 10 mg Q12HR IVP 10/30/17 21:00 11/28/17 20:59 11/02/17 09:35 Pantoprazole (Protonix) 40 mg DAILY IV 10/31/17 09:00 11/06/17 10:59 11/02/17 09:36 [facility] ([facility])Kalee NP Nov 02, 2017 09:55
[2017-11-02 11:45] VITALS: BP 125/63
--- NOTE | 2017-11-02 12:21 | Infectious Diseases Prog Note ---
Assessment/Plan Assessment/Plan ASSESSMENT: The patient is a 42-year-old male with, Possible aspiration pneumonia versus community-acquired pneumonia. Scx : P mirabilis -s/p Rx ; improving -11/01 CXR: Improving right middle lower lung infiltrates, over 3 days. Stable cardiomegaly 10/29 cXR: Infiltrate at the right lung base appears similar. =10/27: Overall improved aeration with decrease in interstitial opacification/ edema and decrease in right lower lung patchy airspace opacities. Some right lower lung opacities persist. -sp cx 10/24 normal bandar -BAL cx 10/18 neg 10/25 CXR: Stable or perhaps slightly improved diffuse bilateral interstitial and airspace edema versus infiltrates, over one day 10/13 C-Xray worsening of infiltrate vs edema -cocci ID neg, Cocci CF unable to obtain given presence of anticomplementary activity -histo ag urine p Leukocytosis ( on steroids ) -improving 10/21 u/a neg,ucx NTD, BCx neg CRP decreasing Intermittent low grade fevers- improving Probable scrotal cellulitis versus discoloration of genitalia due to edema; resolved CRP 09/15 >>4.3 10/24 HIV , Crypt, Aspergillus ab : neg U leg Ab and Ag: neg ARDS CORA improving PICC 10/09 VDRF self extub and reintubated 10/19; extubated 10/24 Congestive heart failure. PLAN: Continue to monitor off abx unless worsening fevers/ leukocytosis or increased O2 requiremetns 10/29 SP IV Vanco #10 10/27 SP Diflucan #10 10/27 Meropenem #14 10/17 sp vancomycin and Doxy d# 10 / 10 10/13 sp Zosyn d# 5 Monitor CBC/CMP Monitor chest x-ray Histo :P Subjective Allergies: Coded Allergies: No Known Allergies (Unverified , 10/06/17) Subjective afebrile in 48hrs leukocytosis improving off abx Objective Vital Signs Last 24 Hour Vital Signs Date Time Temp Pulse Resp B/P (MAP) Pulse Ox O2 Delivery O2 Flow Rate FiO2 11/02/17 11:45 98.2 98 20 125/63 92 11/02/17 10:07 89 20 99 Nasal Cannula 4.0 36 11/02/17 09:46 89 20 99 Nasal Cannula 4.0 36 11/02/17 08:30 98.6 91 20 122/68 96 11/02/17 07:03 Nasal Cannula 4.0 36 11/02/17 07:03 99 Nasal Cannula 4.0 36 11/02/17 04:12 82 18 98 Nasal Cannula 4.0 36 11/02/17 04:01 86 20 96 Nasal Cannula 4.0 36 11/02/17 03:26 94 Nasal Cannula 4.0 11/02/17 03:26 98.1 89 20 156/69 94 Room Air 11/02/17 00:00 95 Nasal Cannula 4.0 11/02/17 00:00 97.9 88 18 120/73 95 11/01/17 20:34 89 18 98 Nasal Cannula 4.0 36 11/01/17 20:19 99 Nasal Cannula 4.0 36 11/01/17 20:19 Nasal Cannula 4.0 36 11/01/17 20:18 84 20 99 Nasal Cannula 4.0 36 11/01/17 20:00 94 Nasal Cannula 4.0 11/01/17 20:00 98.2 79 18 123/70 94 11/01/17 16:00 Nasal Cannula 4.0 11/01/17 15:53 98.0 95 20 131/81 95 11/01/17 15:02 95 18 98 Nasal Cannula 4.0 36 11/01/17 14:48 94 20 98 Nasal Cannula 4.0 36 Height (Feet): 5 Height (Inches): 4.00 Weight (Pounds): 356 Objective HEENT: atraumatic, normocephalic, other - NC in place Lungs: rhonchi - scattered anterior Heart: RRR Abdomen: soft, non-tender, active bowel sounds Extremities: no C/C/E Genitalia:Scrotal edema, improved Laboratory Tests Test 11/01/17 15:00 11/02/17 04:30 Sodium Level 135 MMOL/L (136-145) L Potassium Level 4.1 MMOL/L (3.5-5.1) Chloride Level 100 MMOL/L (98-107) Carbon Dioxide Level 29 MMOL/L (21-32) Anion Gap 6 mmol/L (5-15) Blood Urea Nitrogen 25 mg/dL (7-18) H Creatinine 0.9 MG/DL (0.55-1.30) Estimat Glomerular Filtration Rate > 60 mL/min (>60) Glucose Level 110 MG/DL (74-106) H Calcium Level 8.4 MG/DL (8.5-10.1) #L Phosphorus Level 3.4 MG/DL (2.5-4.9) Magnesium Level 1.9 MG/DL (1.8-2.4) Total Bilirubin 1.2 MG/DL (0.2-1.0) H Direct Bilirubin 0.4 MG/DL (0.0-0.3) H Aspartate Amino Transf (AST/SGOT) 21 U/L (15-37) Alanine Aminotransferase (ALT/SGPT) 44 U/L (12-78) Alkaline Phosphatase 159 U/L (46-116) H Total Protein 7.8 G/DL (6.4-8.2) # Albumin 2.7 G/DL (3.4-5.0) L Globulin 5.1 g/dL Albumin/Globulin Ratio 0.5 (1.0-2.7) L White Blood Count 11.1 K/UL (4.8-10.8) H Red Blood Count 6.15 M/UL (4.70-6.10) H Hemoglobin 11.7 G/DL (14.2-18.0) L Hematocrit 40.4 % (42.0-52.0) L Mean Corpuscular Volume 66 FL (80-99) L Mean Corpuscular Hemoglobin 19.0 PG (27.0-31.0) L Mean Corpuscular Hemoglobin Concent 28.9 G/DL (32.0-36.0) L Red Cell Distribution Width 21.6 % (11.6-14.8) H Platelet Count 137 K/UL (150-450) L Mean Platelet Volume 8.8 FL (6.5-10.1) Neutrophils (%) (Auto) % (45.0-75.0) Lymphocytes (%) (Auto) % (20.0-45.0) Monocytes (%) (Auto) % (1.0-10.0) Eosinophils (%) (Auto) % (0.0-3.0) Basophils (%) (Auto) % (0.0-2.0) Differential Total Cells Counted 100 Neutrophils % (Manual) 93 % (45-75) H Lymphocytes % (Manual) 3 % (20-45) L Monocytes % (Manual) 4 % (1-10) Eosinophils % (Manual) 0 % (0-3) Basophils % (Manual) 0 % (0-2) Band Neutrophils 0 % (0-8) Platelet Estimate Decreased L Platelet Morphology Normal Hypochromasia 1+ Anisocytosis 2+ Microcytosis 2+ Current Medications Medications (Trade) Dose Ordered Sig/Prince Route PRN Reason Start Time Stop Time Status Last Admin Dose Admin Acetaminophen (Tylenol) 650 mg Q4H PRN NG Mild Pain/Temp > 100.5 10/30/17 17:00 11/29/17 16:59 Acetylcysteine (Mucomyst) 200 mg Q6HRT HHN 10/30/17 19:00 11/28/17 07:59 11/02/17 09:41 Albuterol/ Ipratropium (Albuterol/ Ipratropium) 3 ml Q6H PRN HHN Shortness of Breath 10/31/17 15:00 11/05/17 14:59 11/02/17 09:41 Chlorhexidine Gluconate (Sol-Hex 2%) 1 applic DAILY@2000 TOPIC 10/30/17 20:00 11/08/17 19:59 11/01/17 20:40 Dextrose (Dextrose 50%) STAT PRN IV Hypoglycemia 10/31/17 11:00 11/11/17 10:59 Docusate Sodium (Colace) 100 mg BID GT 10/30/17 18:00 11/12/17 16:59 11/02/17 09:35 Ergocalciferol (Drisdol) 50,000 intlu QWEEK@1800 ORAL 10/31/17 17:00 11/30/17 16:59 10/31/17 18:11 Heparin Sodium (Porcine) (Heparin 5000 units/ml) 5,000 units DAILY SUBQ 10/31/17 09:00 11/07/17 10:59 11/02/17 09:39 Insulin Aspart (NovoLOG) BEFORE MEALS AND HS SUBQ 10/30/17 16:30 11/11/17 11:29 11/01/17 05:22 Magnesium Hydroxide (Mom) 30 ml DAILYPRN PRN GT Constipation 10/30/17 16:30 11/12/17 16:29 Methylprednisolone Sodium Succinate (Solu-MEDROL) 10 mg Q12HR IVP 10/30/17 21:00 11/28/17 20:59 11/02/17 09:35 Pantoprazole (Protonix) 40 mg DAILY IV 10/31/17 09:00 11/06/17 10:59 11/02/17 09:36 Evelin Lam M.D. Nov 02, 2017 12:21
--- NOTE | 2017-11-02 14:33 | Nephrology Progress Note ---
Assessment/Plan Problem List: (1) Acute respiratory failure Assessment: self extubated 10/24 (2) Acute renal failure Assessment: with previous urinary out let obstruction Assessment s/p Acute renal failure- Cr WNL Acute Respiratory distress , ? aspiration pneumonia, intubated ARDS Now extubated and doing well s/p Acute Pulmonary edema scotal cellutis Morbid obesity. Thrombocytopenia. Abnormal blood sugar. Anemia. Plan Plan: mag iv and K IV given 1/3 no labs today Vit D per consultants K and Mag supplement as needed Keep BP in check monitor renal parameters per consultants / pulmonary per orders Dc planning Left ventricular ejection fraction estimated to be grossly normal. Mild left ventricular hypertrophy. Subjective ROS Limited/Unobtainable: No Constitutional: Reports: malaise Objective Objective Last 24 Hour Vital Signs Date Time Temp Pulse Resp B/P (MAP) Pulse Ox O2 Delivery O2 Flow Rate FiO2 11/02/17 11:45 98.2 98 20 125/63 92 11/02/17 10:07 89 20 99 Nasal Cannula 4.0 36 11/02/17 09:46 89 20 99 Nasal Cannula 4.0 36 11/02/17 08:30 98.6 91 20 122/68 96 11/02/17 07:03 Nasal Cannula 4.0 36 11/02/17 07:03 99 Nasal Cannula 4.0 36 11/02/17 04:12 82 18 98 Nasal Cannula 4.0 36 11/02/17 04:01 86 20 96 Nasal Cannula 4.0 36 11/02/17 03:26 94 Nasal Cannula 4.0 11/02/17 03:26 98.1 89 20 156/69 94 Room Air 11/02/17 00:00 95 Nasal Cannula 4.0 11/02/17 00:00 97.9 88 18 120/73 95 11/01/17 20:34 89 18 98 Nasal Cannula 4.0 36 11/01/17 20:19 99 Nasal Cannula 4.0 36 11/01/17 20:19 Nasal Cannula 4.0 36 11/01/17 20:18 84 20 99 Nasal Cannula 4.0 36 11/01/17 20:00 94 Nasal Cannula 4.0 11/01/17 20:00 98.2 79 18 123/70 94 11/01/17 16:00 Nasal Cannula 4.0 11/01/17 15:53 98.0 95 20 131/81 95 11/01/17 15:02 95 18 98 Nasal Cannula 4.0 36 11/01/17 14:48 94 20 98 Nasal Cannula 4.0 36 Intake and Output 11/01/17 11/02/17 19:00 07:00 Intake Total 500 ml Output Total 600 ml Balance -100 ml Intake Oral 500 ml Output Urine Total 600 ml Laboratory Tests 11/01/17 15:00: Sodium Level 135L, Potassium Level 4.1, Chloride Level 100, Carbon Dioxide Level 29, Anion Gap 6, Blood Urea Nitrogen 25H, Creatinine 0.9, Estimat Glomerular Filtration Rate > 60, Glucose Level 110H, Calcium Level 8.4#L, Phosphorus Level 3.4, Magnesium Level 1.9, Total Bilirubin 1.2H, Direct Bilirubin 0.4H, Aspartate Amino Transf (AST/SGOT) 21, Alanine Aminotransferase ( ALT/SGPT) 44, Alkaline Phosphatase 159H, Total Protein 7.8#, Albumin 2.7L, Globulin 5.1, Albumin/Globulin Ratio 0.5L 11/02/17 04:30: White Blood Count 11.1H, Red Blood Count 6.15H, Hemoglobin 11.7L, Hematocrit 40.4L, Mean Corpuscular Volume 66L, Mean Corpuscular Hemoglobin 19.0L, Mean Corpuscular Hemoglobin Concent 28.9L, Red Cell Distribution Width 21.6H, Platelet Count 137L, Mean Platelet Volume 8.8, Neutrophils (%) (Auto) , Lymphocytes (%) (Auto) , Monocytes (%) (Auto) , Eosinophils (%) (Auto) , Basophils (%) (Auto) , Differential Total Cells Counted 100, Neutrophils % ( Manual) 93H, Lymphocytes % (Manual) 3L, Monocytes % (Manual) 4, Eosinophils % ( Manual) 0, Basophils % (Manual) 0, Band Neutrophils 0, Platelet Estimate DecreasedL, Platelet Morphology Normal, Hypochromasia 1+, Anisocytosis 2+, Microcytosis 2+ Height (Feet): 5 Height (Inches): 4.00 Weight (Pounds): 356 General Appearance: no apparent distress Objective no other change JAY YANCEY Nov 02, 2017 14:33
[2017-11-02 15:51] VITALS: BP 126/70
--- NOTE | 2017-11-02 15:58 | General Progress Note ---
Assessment/Plan Status: stable Assessment/Plan 1. ARDS-Hypoxemic respiratory failure. Resolved 3.Sepsis: Aspiration Gram negative HCA-PNA : Resolved 4. Gram negative HCA-PNA : Resolved 5. Cellulitis of the scrotal area. 6. Morbid obesity. 7. ARF 8. Obstructive uropathy 9. Thrombocytopenia. 10. DM-2 11. Anemia. 12. Gastrointestinal and deep vein thrombosis prophylaxes. 13. Psoriasis PLAN OF CARE: NOtes from Infectious Diseases Dr. Pineda, Nephrology, Dr Urrutia, reviewed S/p self extubation current management DC plan to SNIF vs Home plus HHcare Subjective Constitutional: Reports: no symptoms HEENT: Reports: no symptoms Cardiovascular: Reports: no symptoms Allergies: Coded Allergies: No Known Allergies (Unverified , 10/06/17) Subjective general weakness Objective Last 24 Hour Vital Signs Date Time Temp Pulse Resp B/P (MAP) Pulse Ox O2 Delivery O2 Flow Rate FiO2 11/02/17 15:51 98.4 92 20 126/70 95 11/02/17 15:04 Nasal Cannula 11/02/17 15:04 Nasal Cannula 11/02/17 14:38 92 Room Air 11/02/17 11:45 98.2 98 20 125/63 92 11/02/17 10:07 89 20 99 Nasal Cannula 4.0 36 11/02/17 09:46 89 20 99 Nasal Cannula 4.0 36 11/02/17 08:30 98.6 91 20 122/68 96 11/02/17 07:03 Nasal Cannula 4.0 36 11/02/17 07:03 99 Nasal Cannula 4.0 36 11/02/17 04:12 82 18 98 Nasal Cannula 4.0 36 11/02/17 04:01 86 20 96 Nasal Cannula 4.0 36 11/02/17 03:26 94 Nasal Cannula 4.0 11/02/17 03:26 98.1 89 20 156/69 94 Room Air 11/02/17 00:00 95 Nasal Cannula 4.0 11/02/17 00:00 97.9 88 18 120/73 95 11/01/17 20:34 89 18 98 Nasal Cannula 4.0 36 11/01/17 20:19 99 Nasal Cannula 4.0 36 11/01/17 20:19 Nasal Cannula 4.0 36 11/01/17 20:18 84 20 99 Nasal Cannula 4.0 36 11/01/17 20:00 94 Nasal Cannula 4.0 11/01/17 20:00 98.2 79 18 123/70 94 11/01/17 16:00 Nasal Cannula 4.0 Intake and Output 11/01/17 11/02/17 19:00 07:00 Intake Total 500 ml Output Total 600 ml Balance -100 ml Intake Oral 500 ml Output Urine Total 600 ml Laboratory Tests 11/02/17 04:30: White Blood Count 11.1H, Red Blood Count 6.15H, Hemoglobin 11.7L, Hematocrit 40.4L, Mean Corpuscular Volume 66L, Mean Corpuscular Hemoglobin 19.0L, Mean Corpuscular Hemoglobin Concent 28.9L, Red Cell Distribution Width 21.6H, Platelet Count 137L, Mean Platelet Volume 8.8, Neutrophils (%) (Auto) , Lymphocytes (%) (Auto) , Monocytes (%) (Auto) , Eosinophils (%) (Auto) , Basophils (%) (Auto) , Differential Total Cells Counted 100, Neutrophils % ( Manual) 93H, Lymphocytes % (Manual) 3L, Monocytes % (Manual) 4, Eosinophils % ( Manual) 0, Basophils % (Manual) 0, Band Neutrophils 0, Platelet Estimate DecreasedL, Platelet Morphology Normal, Hypochromasia 1+, Anisocytosis 2+, Microcytosis 2+ Height (Feet): 5 Height (Inches): 4.00 Weight (Pounds): 356 General Appearance: WD/WN EENT: PERRL/EOMI Neck: supple Cardiovascular: normal rate Respiratory/Chest: rhonchi - bilaterally Abdomen: soft Extremities: non-tender, other - deconditioning Nery Combs MD Nov 02, 2017 15:58
[2017-11-02 20:16] VITALS: BP 111/68
[2017-11-02] MEDS: Dyna-Hex 2% Top Sol 2oz TOPIC SCH (20:44)
[2017-11-03] VITALS: BP 116/60
[2017-11-03] MEDS: Albuterol/Ipratropium 3ml neb HHN PRN ×3 (00:42→19:46)
[2017-11-03 04:34] VITALS: BP 150/81
[2017-11-03] MEDS: NovoLOG Insulin Flexpen SUBQ SCH ×4 (06:02→21:00)
[2017-11-03 08:00] VITALS: BP 112/66
[2017-11-03 08:04] LABS: HEMATOCRIT 39.6 % (42.0-52.0); HEMOGLOBIN 11.4 G/DL (14.2-18.0); MEAN CORPUSCULAR VOLUME 65 FL (80-99); PLATELET COUNT 117 K/UL (150-450); RED BLOOD COUNT 6.05 M/UL (4.70-6.10); RED CELL DISTRIBUTION WIDTH 21.9 % (11.6-14.8); WHITE BLOOD COUNT 12.8 K/UL (4.8-10.8)
[2017-11-03 08:14] LABS: ANION GAP 7 mmol/L (5-15); BLOOD UREA NITROGEN 25 mg/dL (7-18); CALCIUM 8.1 MG/DL (8.5-10.1); CARBON DIOXIDE 29 MMOL/L (21-32); CHLORIDE 100 MMOL/L (98-107); CREATININE 0.9 MG/DL (0.55-1.30); POTASSIUM 3.7 MMOL/L (3.5-5.1); SODIUM 136 MMOL/L (136-145)
[2017-11-03] MEDS: Docusate 100mg/10ml Liq GT SCH ×2 (09:49→18:00)
[2017-11-03] MEDS: Pantoprazole Inj IV SCH (09:49)
[2017-11-03] MEDS: Solu-MEDROL 40mg Inj IVP SCH ×2 (09:50→21:07)
[2017-11-03] MEDS: Heparin 5000 units/ml inj SUBQ SCH (09:51)
[2017-11-03 12:00] VITALS: BP 121/81
--- NOTE | 2017-11-03 12:18 | Infectious Diseases Prog Note ---
Assessment/Plan Assessment/Plan Assessment/Plan: ASSESSMENT: The patient is a 42-year-old male with, Possible aspiration pneumonia versus community-acquired pneumonia. Scx : P mirabilis -s/p Rx ; improving -11/01 CXR: Improving right middle lower lung infiltrates, over 3 days. Stable cardiomegaly 10/29 cXR: Infiltrate at the right lung base appears similar. =10/27: Overall improved aeration with decrease in interstitial opacification/ edema and decrease in right lower lung patchy airspace opacities. Some right lower lung opacities persist. -sp cx 10/24 normal bandar -BAL cx 10/18 neg 10/25 CXR: Stable or perhaps slightly improved diffuse bilateral interstitial and airspace edema versus infiltrates, over one day 10/13 C-Xray worsening of infiltrate vs edema -cocci ID neg, Cocci CF unable to obtain given presence of anticomplementary activity -histo ag urine p Leukocytosis ( on steroids ) -improving 10/21 u/a neg,ucx NTD, BCx neg CRP decreasing Intermittent low grade fevers- SP Probable scrotal cellulitis versus discoloration of genitalia due to edema; resolved CRP 09/15 >>4.3 10/24 HIV , Crypt, Aspergillus ab : neg U leg Ab and Ag: neg ARDS CORA improving PICC 10/09 VDRF self extub and reintubated 10/19; extubated 10/24 Congestive heart failure. PLAN: Continue to monitor off abx unless worsening fevers/ leukocytosis or increased O2 requiremetns 10/29 SP IV Vanco #10 10/27 SP Diflucan #10 10/27 Meropenem #14 10/17 sp vancomycin and Doxy d# 10 / 10 10/13 sp Zosyn d# 5 Monitor CBC/CMP Monitor chest x-ray Histo :P Subjective Allergies: Coded Allergies: No Known Allergies (Unverified , 10/06/17) Subjective afebrile Objective Vital Signs Last 24 Hour Vital Signs Date Time Temp Pulse Resp B/P (MAP) Pulse Ox O2 Delivery O2 Flow Rate FiO2 11/03/17 08:00 98.7 88 22 112/66 96 11/03/17 07:53 78 20 95 Nasal Cannula 4.0 36 11/03/17 07:53 95 Nasal Cannula 4.0 36 11/03/17 07:53 Nasal Cannula 4.0 36 11/03/17 07:53 95 Nasal Cannula 4.0 36 11/03/17 04:34 98.2 83 19 150/81 92 11/03/17 00:53 80 20 97 Nasal Cannula 4.0 36 11/03/17 00:45 83 20 96 Nasal Cannula 4.0 36 11/03/17 00:00 98.0 90 19 116/60 96 Room Air 11/03/17 00:00 96 Room Air 11/02/17 20:21 85 20 98 Nasal Cannula 4.0 36 11/02/17 20:16 98.4 90 19 111/68 90 Room Air 11/02/17 20:16 90 Room Air 11/02/17 20:13 86 20 95 Nasal Cannula 4.0 36 11/02/17 20:13 Nasal Cannula 4.0 36 11/02/17 20:12 95 Nasal Cannula 4.0 36 11/02/17 16:00 Room Air 11/02/17 15:51 98.4 92 20 126/70 95 11/02/17 15:04 Nasal Cannula 11/02/17 15:04 Nasal Cannula 11/02/17 14:38 92 Room Air Height (Feet): 5 Height (Inches): 4.00 Weight (Pounds): 356 HEENT: mucous membranes moist Respiratory/Chest: respiratory distress Cardiovascular: regularly irregular Abdomen: soft, non tender Laboratory Tests Test 11/03/17 04:30 White Blood Count 12.8 K/UL (4.8-10.8) H Red Blood Count 6.05 M/UL (4.70-6.10) Hemoglobin 11.4 G/DL (14.2-18.0) L Hematocrit 39.6 % (42.0-52.0) L Mean Corpuscular Volume 65 FL (80-99) L Mean Corpuscular Hemoglobin 18.9 PG (27.0-31.0) L Mean Corpuscular Hemoglobin Concent 28.9 G/DL (32.0-36.0) L Red Cell Distribution Width 21.9 % (11.6-14.8) H Platelet Count 117 K/UL (150-450) L Mean Platelet Volume 8.0 FL (6.5-10.1) Neutrophils (%) (Auto) % (45.0-75.0) Lymphocytes (%) (Auto) % (20.0-45.0) Monocytes (%) (Auto) % (1.0-10.0) Eosinophils (%) (Auto) % (0.0-3.0) Basophils (%) (Auto) % (0.0-2.0) Neutrophils % (Manual) Pending Lymphocytes % (Manual) Pending Platelet Estimate Pending Platelet Morphology Pending Sodium Level 136 MMOL/L (136-145) Potassium Level 3.7 MMOL/L (3.5-5.1) Chloride Level 100 MMOL/L (98-107) Carbon Dioxide Level 29 MMOL/L (21-32) Anion Gap 7 mmol/L (5-15) Blood Urea Nitrogen 25 mg/dL (7-18) H Creatinine 0.9 MG/DL (0.55-1.30) Estimat Glomerular Filtration Rate > 60 mL/min (>60) Glucose Level 85 MG/DL (74-106) Calcium Level 8.1 MG/DL (8.5-10.1) L C-Reactive Protein, Quantitative 4.4 mg/dL (0.00-0.90) H Current Medications Medications (Trade) Dose Ordered Sig/Prince Route PRN Reason Start Time Stop Time Status Last Admin Dose Admin Acetaminophen (Tylenol) 650 mg Q4H PRN NG Mild Pain/Temp > 100.5 10/30/17 17:00 11/29/17 16:59 Acetylcysteine (Mucomyst) 200 mg Q6HRT HHN 10/30/17 19:00 11/28/17 07:59 11/03/17 00:45 Albuterol/ Ipratropium (Albuterol/ Ipratropium) 3 ml Q6H PRN HHN Shortness of Breath 11/02/17 15:00 11/07/17 14:59 11/03/17 00:42 Chlorhexidine Gluconate (Sol-Hex 2%) 1 applic DAILY@2000 TOPIC 10/30/17 20:00 11/08/17 19:59 11/02/17 20:44 Dextrose (Dextrose 50%) STAT PRN IV Hypoglycemia 10/31/17 11:00 11/11/17 10:59 Docusate Sodium (Colace) 100 mg BID GT 10/30/17 18:00 11/12/17 16:59 11/03/17 09:49 Ergocalciferol (Drisdol) 50,000 intlu QWEEK@1800 ORAL 10/31/17 17:00 11/30/17 16:59 10/31/17 18:11 Heparin Sodium (Porcine) (Heparin 5000 units/ml) 5,000 units DAILY SUBQ 10/31/17 09:00 11/07/17 10:59 11/03/17 09:51 Insulin Aspart (NovoLOG) BEFORE MEALS AND HS SUBQ 10/30/17 16:30 11/11/17 11:29 11/03/17 06:02 Magnesium Hydroxide (Mom) 30 ml DAILYPRN PRN GT Constipation 10/30/17 16:30 11/12/17 16:29 11/03/17 09:49 Methylprednisolone Sodium Succinate (Solu-MEDROL) 10 mg Q12HR IVP 10/30/17 21:00 11/28/17 20:59 11/03/17 09:50 Pantoprazole (Protonix) 40 mg DAILY IV 10/31/17 09:00 11/06/17 10:59 11/03/17 09:49 CATALINA PARRA M.D. Nov 03, 2017 12:18
--- NOTE | 2017-11-03 12:46 | Nephrology Progress Note ---
Assessment/Plan Problem List: (1) Acute respiratory failure Assessment: self extubated 10/24 (2) Acute renal failure Assessment: with previous urinary out let obstruction Assessment s/p Acute renal failure- Cr WNL Acute Respiratory distress , ? aspiration pneumonia, intubated ARDS Now extubated and doing well s/p Acute Pulmonary edema scotal cellutis Morbid obesity. Thrombocytopenia. Abnormal blood sugar. Anemia. Plan Plan: mag iv and K IV given 1/3 no labs today Vit D per consultants K and Mag supplement as needed Keep BP in check monitor renal parameters per consultants / pulmonary per orders Dc planning Left ventricular ejection fraction estimated to be grossly normal. Mild left ventricular hypertrophy. Subjective ROS Limited/Unobtainable: No Constitutional: Reports: malaise Objective Objective Last 24 Hour Vital Signs Date Time Temp Pulse Resp B/P (MAP) Pulse Ox O2 Delivery O2 Flow Rate FiO2 11/03/17 12:00 98.6 89 20 121/81 94 11/03/17 08:00 98.7 88 22 112/66 96 11/03/17 07:53 78 20 95 Nasal Cannula 4.0 36 11/03/17 07:53 95 Nasal Cannula 4.0 36 11/03/17 07:53 Nasal Cannula 4.0 36 11/03/17 07:53 95 Nasal Cannula 4.0 36 11/03/17 04:34 98.2 83 19 150/81 92 11/03/17 00:53 80 20 97 Nasal Cannula 4.0 36 11/03/17 00:45 83 20 96 Nasal Cannula 4.0 36 11/03/17 00:00 98.0 90 19 116/60 96 Room Air 11/03/17 00:00 96 Room Air 11/02/17 20:21 85 20 98 Nasal Cannula 4.0 36 11/02/17 20:16 98.4 90 19 111/68 90 Room Air 11/02/17 20:16 90 Room Air 11/02/17 20:13 86 20 95 Nasal Cannula 4.0 36 11/02/17 20:13 Nasal Cannula 4.0 36 11/02/17 20:12 95 Nasal Cannula 4.0 36 11/02/17 16:00 Room Air 11/02/17 15:51 98.4 92 20 126/70 95 11/02/17 15:04 Nasal Cannula 11/02/17 15:04 Nasal Cannula 11/02/17 14:38 92 Room Air Intake and Output 11/02/17 11/03/17 19:00 07:00 Intake Total 840 ml Output Total 600 ml 700 ml Balance 240 ml -700 ml Intake Oral 840 ml Output Urine Total 600 ml 700 ml Laboratory Tests 11/03/17 04:30: White Blood Count 12.8H, Red Blood Count 6.05, Hemoglobin 11.4L, Hematocrit 39.6L, Mean Corpuscular Volume 65L, Mean Corpuscular Hemoglobin 18.9L, Mean Corpuscular Hemoglobin Concent 28.9L, Red Cell Distribution Width 21.9H, Platelet Count 117L, Mean Platelet Volume 8.0, Neutrophils (%) (Auto) , Lymphocytes (%) (Auto) , Monocytes (%) (Auto) , Eosinophils (%) (Auto) , Basophils (%) (Auto) , Neutrophils % (Manual) [Pending], Lymphocytes % (Manual) [Pending], Platelet Estimate [Pending], Platelet Morphology [Pending], Sodium Level 136, Potassium Level 3.7, Chloride Level 100, Carbon Dioxide Level 29, Anion Gap 7, Blood Urea Nitrogen 25H, Creatinine 0.9, Estimat Glomerular Filtration Rate > 60, Glucose Level 85, Calcium Level 8.1L, C-Reactive Protein, Quantitative 4.4H Height (Feet): 5 Height (Inches): 4.00 Weight (Pounds): 356 General Appearance: no apparent distress Objective no other change JAY YANCEY Nov 03, 2017 12:46
--- NOTE | 2017-11-03 13:09 | Pulmonology Progress Note ---
Assessment/Plan Assessment/Plan ASSESSMENT Acute hypercapnic RF requiring intubation s/p self extubation ( few times) likely aspiration PNA with Proteus acute pulmonary edema ARDS likely obesity hyperventilation syndrome with chronic hypercapnia, severely exacerbated by ARDS Likely scrotal cellulitis Anasarca Urinary retention-relieved ARF likely ATN -resolved hypernatremia-improved Thrombocytopenia psoriasis morbid obesity new onset of diabetes PLAN OF CARE MS floor O2 via NS keep sat above 90% pulmonary toilet low dose steroids with tapering s/p abx ID follows sputum cx + Proteus, repeated sputum cx + Proteus; urine cx negative, blood cx negative CXR 10/22 with probable new infiltrate ( + leuk, + low grade fever) s/p bronch 10/18 with evidence of ARDS, extensive airway inflammation, but no active alveolar bleeding bronchial washing cx negative nephro follows creat down to normal s/p IVF no further IVF, spot diuresis prn , will give 1 small dose today monitor renal parameters, lytes, correct as need, avoid nephrotoxic prior: renal US with 1500cc urinary retention Carrington placed by urologist scrotal US noted elevate scrotum Venous Duplex BLE negative ECHO with grossly preserved EF, normal wall motion to the extent visualized Pain management DVT/GI prophylaxis Monitor counts [id number] new onset of DM BS management , started on a sensitive SSI prn , BS stable swallow eval passed started diet eval by PT done, needs max assistance with transfer and ambulation per PT extremely deconditioned, will have extensive PT Rx till Sunday and plan on dc home with walker get O2 sat on RA discussed with patient, who agreeable with the plan discussed with the patient that he can follow up with [facility] clinics for further ongoing care dc Carrington today monitor for voiding if difficulties will start Flomax case discussed and evaluated by supervising physician Subjective Allergies: Coded Allergies: No Known Allergies (Unverified , 10/06/17) Subjective improving on O2 via NC on MS floor no signs of respiratory distress was eval by PT, needs max assistance with transfer and ambulation Objective Last 24 Hour Vital Signs Date Time Temp Pulse Resp B/P (MAP) Pulse Ox O2 Delivery O2 Flow Rate FiO2 11/03/17 12:00 98.6 89 20 121/81 94 11/03/17 08:00 98.7 88 22 112/66 96 11/03/17 07:53 78 20 95 Nasal Cannula 4.0 36 11/03/17 07:53 95 Nasal Cannula 4.0 36 11/03/17 07:53 Nasal Cannula 4.0 36 11/03/17 07:53 95 Nasal Cannula 4.0 36 11/03/17 04:34 98.2 83 19 150/81 92 11/03/17 00:53 80 20 97 Nasal Cannula 4.0 36 11/03/17 00:45 83 20 96 Nasal Cannula 4.0 36 11/03/17 00:00 98.0 90 19 116/60 96 Room Air 11/03/17 00:00 96 Room Air 11/02/17 20:21 85 20 98 Nasal Cannula 4.0 36 11/02/17 20:16 98.4 90 19 111/68 90 Room Air 11/02/17 20:16 90 Room Air 11/02/17 20:13 86 20 95 Nasal Cannula 4.0 36 11/02/17 20:13 Nasal Cannula 4.0 36 11/02/17 20:12 95 Nasal Cannula 4.0 36 11/02/17 16:00 Room Air 11/02/17 15:51 98.4 92 20 126/70 95 11/02/17 15:04 Nasal Cannula 11/02/17 15:04 Nasal Cannula 11/02/17 14:38 92 Room Air Intake and Output 11/02/17 11/03/17 19:00 07:00 Intake Total 840 ml Output Total 600 ml 700 ml Balance 240 ml -700 ml Intake Oral 840 ml Output Urine Total 600 ml 700 ml Objective Status: awake, alert, responsive morbidly obese middle age male, HEENT: atraumatic, normocephalic, O2 via NC Lungs: clear Heart: HR/BP stable, RUE PICC intact Abdomen: soft, obese , active bowel sounds Skin: + dry plaques knee and elbow anterior surface Extremities: + 2 edema BLE Laboratory Tests 11/03/17 04:30: White Blood Count 12.8H, Red Blood Count 6.05, Hemoglobin 11.4L, Hematocrit 39.6L, Mean Corpuscular Volume 65L, Mean Corpuscular Hemoglobin 18.9L, Mean Corpuscular Hemoglobin Concent 28.9L, Red Cell Distribution Width 21.9H, Platelet Count 117L, Mean Platelet Volume 8.0, Neutrophils (%) (Auto) , Lymphocytes (%) (Auto) , Monocytes (%) (Auto) , Eosinophils (%) (Auto) , Basophils (%) (Auto) , Neutrophils % (Manual) [Pending], Lymphocytes % (Manual) [Pending], Platelet Estimate [Pending], Platelet Morphology [Pending], Sodium Level 136, Potassium Level 3.7, Chloride Level 100, Carbon Dioxide Level 29, Anion Gap 7, Blood Urea Nitrogen 25H, Creatinine 0.9, Estimat Glomerular Filtration Rate > 60, Glucose Level 85, Calcium Level 8.1L, C-Reactive Protein, Quantitative 4.4H Current Medications Medications (Trade) Dose Ordered Sig/Prince Route PRN Reason Start Time Stop Time Status Last Admin Dose Admin Acetaminophen (Tylenol) 650 mg Q4H PRN NG Mild Pain/Temp > 100.5 10/30/17 17:00 11/29/17 16:59 Acetylcysteine (Mucomyst) 200 mg Q6HRT HHN 10/30/17 19:00 11/28/17 07:59 11/03/17 00:45 Albuterol/ Ipratropium (Albuterol/ Ipratropium) 3 ml Q6H PRN HHN Shortness of Breath 11/02/17 15:00 11/07/17 14:59 11/03/17 00:42 Chlorhexidine Gluconate (Sol-Hex 2%) 1 applic DAILY@2000 TOPIC 10/30/17 20:00 11/08/17 19:59 11/02/17 20:44 Dextrose (Dextrose 50%) STAT PRN IV Hypoglycemia 10/31/17 11:00 11/11/17 10:59 Docusate Sodium (Colace) 100 mg BID GT 10/30/17 18:00 11/12/17 16:59 11/03/17 09:49 Ergocalciferol (Drisdol) 50,000 intlu QWEEK@1800 ORAL 10/31/17 17:00 11/30/17 16:59 10/31/17 18:11 Heparin Sodium (Porcine) (Heparin 5000 units/ml) 5,000 units DAILY SUBQ 10/31/17 09:00 11/07/17 10:59 11/03/17 09:51 Insulin Aspart (NovoLOG) BEFORE MEALS AND HS SUBQ 10/30/17 16:30 1/14/18 11:29 11/03/17 06:02 Magnesium Hydroxide (Mom) 30 ml DAILYPRN PRN GT Constipation 10/30/17 16:30 11/12/17 16:29 11/03/17 09:49 Methylprednisolone Sodium Succinate (Solu-MEDROL) 10 mg Q12HR IVP 10/30/17 21:00 11/28/17 20:59 11/03/17 09:50 Pantoprazole (Protonix) 40 mg DAILY IV 10/31/17 09:00 11/06/17 10:59 11/03/17 09:49 [facility]Kalee NP Nov 03, 2017 13:09
[2017-11-03 16:00] VITALS: BP 124/83
[2017-11-03 20:00] VITALS: BP 121/72
[2017-11-03] MEDS: Dyna-Hex 2% Top Sol 2oz TOPIC SCH (21:06)
[2017-11-03] MEDS ORDERED: Tubing IV Secondary IV ONE (22:38)
[2017-11-03] MEDS ORDERED: NS 275ml ONE (22:38)
[2017-11-04] VITALS: BP 119/64
[2017-11-04 04:00] VITALS: BP 152/89
[2017-11-04] MEDS: NovoLOG Insulin Flexpen SUBQ SCH ×4 (06:15→21:01)
[2017-11-04 08:00] VITALS: BP 123/77
[2017-11-04] MEDS: Albuterol/Ipratropium 3ml neb HHN PRN ×3 (09:38→17:53)
[2017-11-04] MEDS: Docusate 100mg/10ml Liq GT SCH ×2 (09:58→18:19)
[2017-11-04] MEDS: Solu-MEDROL 40mg Inj IVP SCH (09:58)
[2017-11-04] MEDS: Pantoprazole Inj IV SCH (09:58)
[2017-11-04] MEDS: Heparin 5000 units/ml inj SUBQ SCH (10:24)
[2017-11-04 12:00] VITALS: BP 111/74
--- NOTE | 2017-11-04 13:53 | Nephrology Progress Note ---
Assessment/Plan Problem List: (1) Acute respiratory failure Assessment: self extubated 10/24 (2) Acute renal failure Assessment: with previous urinary out let obstruction Assessment s/p Acute renal failure- Cr WNL Acute Respiratory distress , ? aspiration pneumonia, intubated ARDS Now extubated and doing well s/p Acute Pulmonary edema scotal cellutis Morbid obesity. Thrombocytopenia. Abnormal blood sugar. Anemia. Plan Plan: mag iv and K IV given 1/3 no labs today Vit D per consultants K and Mag supplement as needed Keep BP in check monitor renal parameters per consultants / pulmonary per orders Dc planning Left ventricular ejection fraction estimated to be grossly normal. Mild left ventricular hypertrophy. Subjective ROS Limited/Unobtainable: No Constitutional: Reports: malaise Objective Objective Last 24 Hour Vital Signs Date Time Temp Pulse Resp B/P (MAP) Pulse Ox O2 Delivery O2 Flow Rate FiO2 11/04/17 12:00 98.0 90 20 111/74 98 11/04/17 09:41 71 20 94 Nasal Cannula 4.0 36 11/04/17 09:41 Nasal Cannula 4.0 36 11/04/17 09:40 94 Nasal Cannula 4.0 36 11/04/17 09:40 80 20 94 Nasal Cannula 4.0 36 11/04/17 09:00 78 18 99 Nasal Cannula 4.0 36 11/04/17 08:00 Nasal Cannula 11/04/17 08:00 98.4 93 20 123/77 97 11/04/17 04:00 98 Nasal Cannula 11/04/17 04:00 97.7 87 21 152/89 98 11/04/17 01:09 Nasal Cannula 36 11/04/17 01:08 Nasal Cannula 11/04/17 00:00 97.9 86 21 119/64 93 11/04/17 00:00 93 Nasal Cannula 11/03/17 20:00 93 Nasal Cannula 11/03/17 20:00 98.4 90 21 121/72 91 11/03/17 19:54 88 18 99 Nasal Cannula 4.0 36 11/03/17 19:49 Nasal Cannula 4.0 36 11/03/17 19:48 96 Nasal Cannula 4.0 36 11/03/17 19:47 80 20 96 Nasal Cannula 4.0 36 11/03/17 16:00 98.5 90 20 124/83 93 Intake and Output 11/03/17 11/04/17 19:00 07:00 Intake Total 1000 ml Output Total 1300 ml Balance -300 ml Intake Oral 1000 ml Output Urine Total 1300 ml # Bowel Movements 2 1 Height (Feet): 5 Height (Inches): 4.00 Weight (Pounds): 356 General Appearance: no apparent distress Objective no other change JAY YANCEY Nov 04, 2017 13:53
[2017-11-04 15:47] VITALS: BP 112/70
--- NOTE | 2017-11-04 16:17 | Pulmonology Progress Note ---
Assessment/Plan Assessment/Plan ASSESSMENT Acute hypercapnic RF requiring intubation s/p self extubation ( few times) likely aspiration PNA with Proteus, s/p Rx acute pulmonary edema-resoled ARDS -resolved likely obesity hyperventilation syndrome with chronic hypercapnia, severely exacerbated by ARDS Likely scrotal cellulitis Anasarca Urinary retention- ARF likely ATN -resolved hypernatremia-improved Thrombocytopenia psoriasis morbid obesity new onset of diabetes PLAN OF CARE MS floor O2 via NS keep sat above 90% pulmonary toilet low dose steroids with tapering s/p abx ID follows sputum cx + Proteus, repeated sputum cx + Proteus; urine cx negative, blood cx negative CXR 10/22 with probable new infiltrate ( + leuk, + low grade fever) s/p bronch 10/18 with evidence of ARDS, extensive airway inflammation, but no active alveolar bleeding bronchial washing cx negative nephro follows creat down to normal s/p IVF no further IVF, spot diuresis prn , will give 1 small dose today monitor renal parameters, lytes, correct as need, avoid nephrotoxic prior: renal US with 1500cc urinary retention Carrington placed by urologist scrotal US noted elevate scrotum , better unable to void and Carrington reisnerted 11/03 start Flomax tonight and continue upon dc dc Carrington in am Venous Duplex BLE negative ECHO with grossly preserved EF, normal wall motion to the extent visualized Pain management DVT/GI prophylaxis Monitor counts [id number] new onset of DM BS management , started on a sensitive SSI prn , BS stable swallow eval passed started diet eval by PT done, needs max assistance with transfer and ambulation per PT extremely deconditioned, will have extensive PT Rx till Sunday and plan on dc home with walker get O2 sat on RA discussed with patient, who agreeable with the plan discussed with the patient that he can follow up with [facility] clinics for further ongoing care tentative dc for tomorrow case discussed and evaluated by supervising physician Subjective Allergies: Coded Allergies: No Known Allergies (Unverified , 10/06/17) Subjective improving on RA now on MS floor no signs of respiratory distress working with PT Carrington dc 11/03 and was unable to urinate, Carrington reinserted with large volume of urine on return Objective Last 24 Hour Vital Signs Date Time Temp Pulse Resp B/P (MAP) Pulse Ox O2 Delivery O2 Flow Rate FiO2 11/04/17 15:47 99.4 88 21 112/70 99 Room Air 11/04/17 15:42 80 20 96 Nasal Cannula 4.0 36 11/04/17 12:00 98.0 90 20 111/74 98 11/04/17 09:41 71 20 94 Nasal Cannula 4.0 36 11/04/17 09:41 Nasal Cannula 4.0 36 11/04/17 09:40 94 Nasal Cannula 4.0 36 11/04/17 09:40 80 20 94 Nasal Cannula 4.0 36 11/04/17 09:00 78 18 99 Nasal Cannula 4.0 36 11/04/17 08:00 Nasal Cannula 11/04/17 08:00 98.4 93 20 123/77 97 11/04/17 04:00 98 Nasal Cannula 11/04/17 04:00 97.7 87 21 152/89 98 11/04/17 01:09 Nasal Cannula 36 11/04/17 01:08 Nasal Cannula 11/04/17 00:00 97.9 86 21 119/64 93 11/04/17 00:00 93 Nasal Cannula 11/03/17 20:00 93 Nasal Cannula 11/03/17 20:00 98.4 90 21 121/72 91 11/03/17 19:54 88 18 99 Nasal Cannula 4.0 36 11/03/17 19:49 Nasal Cannula 4.0 36 11/03/17 19:48 96 Nasal Cannula 4.0 36 11/03/17 19:47 80 20 96 Nasal Cannula 4.0 36 Intake and Output 11/03/17 11/04/17 19:00 07:00 Intake Total 1000 ml Output Total 1300 ml Balance -300 ml Intake Oral 1000 ml Output Urine Total 1300 ml # Bowel Movements 2 1 Objective Status: awake, alert, responsive morbidly obese middle age male, HEENT: atraumatic, normocephalic, Lungs: clear Heart: HR/BP stable, RUE PICC intact Abdomen: soft, obese , active bowel sounds Skin: + dry plaques knee and elbow anterior surface Extremities: + 2 edema BLE Current Medications Medications (Trade) Dose Ordered Sig/Prince Route PRN Reason Start Time Stop Time Status Last Admin Dose Admin Acetaminophen (Tylenol) 650 mg Q4H PRN NG Mild Pain/Temp > 100.5 10/30/17 17:00 11/29/17 16:59 Acetylcysteine (Mucomyst) 200 mg Q6HRT HHN 10/30/17 19:00 11/28/17 07:59 11/04/17 13:00 Albuterol/ Ipratropium (Albuterol/ Ipratropium) 3 ml Q6H PRN HHN Shortness of Breath 11/02/17 15:00 11/07/17 14:59 11/04/17 15:47 Chlorhexidine Gluconate (Sol-Hex 2%) 1 applic DAILY@2000 TOPIC 10/30/17 20:00 11/08/17 19:59 11/03/17 21:06 Dextrose (Dextrose 50%) STAT PRN IV Hypoglycemia 10/31/17 11:00 11/11/17 10:59 Docusate Sodium (Colace) 100 mg BID GT 10/30/17 18:00 11/12/17 16:59 11/04/17 09:58 Ergocalciferol (Drisdol) 50,000 intlu QWEEK@1800 ORAL 10/31/17 17:00 11/30/17 16:59 10/31/17 18:11 Heparin Sodium (Porcine) (Heparin 5000 units/ml) 5,000 units DAILY SUBQ 10/31/17 09:00 11/07/17 10:59 11/04/17 10:24 Insulin Aspart (NovoLOG) BEFORE MEALS AND HS SUBQ 10/30/17 16:30 11/11/17 11:29 11/04/17 11:42 Magnesium Hydroxide (Mom) 30 ml DAILYPRN PRN GT Constipation 10/30/17 16:30 11/12/17 16:29 11/03/17 09:49 Methylprednisolone Sodium Succinate (Solu-MEDROL) 10 mg Q12HR IVP 10/30/17 21:00 11/28/17 20:59 11/04/17 09:58 Pantoprazole (Protonix) 40 mg DAILY IV 10/31/17 09:00 11/06/17 10:59 11/04/17 09:58 Kalee Ricks NP ([facility]) Nov 04, 2017 16:17
[2017-11-04 20:00] VITALS: BP 119/82
[2017-11-04] MEDS: Tamsulosin 0.4mg cap ORAL SCH (21:00)
[2017-11-04] MEDS: Dyna-Hex 2% Top Sol 2oz TOPIC SCH (21:00)
--- NOTE | 2017-11-04 23:26 | General Progress Note ---
Assessment/Plan Assessment/Plan Assessment/Plan 1. VDRF currently is extubated, self-extubated 2. ARDS-Hypoxemic respiratory failure. 3. Sepsis: Aspiration Gram negative HCA-PNA 4. Gram negative HCA-PNA 5. Cellulitis of the scrotal area. 6. Morbid obesity. 7. ARF 8. Obstructive uropathy 9. Thrombocytopenia. 10. DM-2 11. Anemia. --> HGB goal >7 12. Gastrointestinal and deep vein thrombosis prophylaxes. 13. Psoriasis Subjective Date patient seen: Nov 04, 2017 Allergies: Coded Allergies: No Known Allergies (Unverified , 10/06/17) Subjective Afebrile. No major events. extubated. Objective Last 24 Hour Vital Signs Date Time Temp Pulse Resp B/P (MAP) Pulse Ox O2 Delivery O2 Flow Rate FiO2 11/04/17 20:30 96 Nasal Cannula 4.0 36 11/04/17 20:30 Nasal Cannula 4.0 36 11/04/17 20:00 98.8 84 20 119/82 100 Nasal Cannula 4.0 11/04/17 18:59 Nasal Cannula 11/04/17 18:02 101 20 97 Nasal Cannula 4.0 36 11/04/17 17:50 91 18 98 Nasal Cannula 4.0 11/04/17 15:52 77 18 98 Nasal Cannula 4.0 36 11/04/17 15:47 99.4 88 21 112/70 99 Room Air 11/04/17 15:42 80 20 96 Nasal Cannula 4.0 36 11/04/17 12:00 Nasal Cannula 11/04/17 12:00 98.0 90 20 111/74 98 11/04/17 09:41 71 20 94 Nasal Cannula 4.0 36 11/04/17 09:41 Nasal Cannula 4.0 36 11/04/17 09:40 94 Nasal Cannula 4.0 36 11/04/17 09:40 80 20 94 Nasal Cannula 4.0 36 11/04/17 09:00 78 18 99 Nasal Cannula 4.0 36 11/04/17 08:00 Nasal Cannula 11/04/17 08:00 98.4 93 20 123/77 97 11/04/17 04:00 98 Nasal Cannula 11/04/17 04:00 97.7 87 21 152/89 98 11/04/17 01:09 Nasal Cannula 36 11/04/17 01:08 Nasal Cannula 11/04/17 00:00 97.9 86 21 119/64 93 11/04/17 00:00 93 Nasal Cannula Intake and Output 11/03/17 11/04/17 19:00 07:00 Intake Total 1000 ml Output Total 1300 ml Balance -300 ml Intake Oral 1000 ml Output Urine Total 1300 ml # Bowel Movements 2 1 Height (Feet): 5 Height (Inches): 4.00 Weight (Pounds): 356 General Appearance: no apparent distress EENT: normal ENT inspection Neck: normal alignment Cardiovascular: normal rate Abdomen: soft Neurologic: radio time buyer II-XII grossly normal Semaj Juárez Nov 04, 2017 23:26
[2017-11-05] VITALS: BP 121/72
[2017-11-05] MEDS: Albuterol/Ipratropium 3ml neb HHN PRN (02:06)
[2017-11-05 04:00] VITALS: BP 129/79
[2017-11-05] MEDS: NovoLOG Insulin Flexpen SUBQ SCH ×4 (06:22→20:32)
[2017-11-05 08:00] VITALS: BP 128/79
[2017-11-05] MEDS: Heparin 5000 units/ml inj SUBQ SCH (09:00)
[2017-11-05] MEDS: Solu-MEDROL 40mg Inj IVP SCH (09:26)
[2017-11-05] MEDS: Docusate 100mg/10ml Liq GT SCH ×2 (09:26→17:33)
[2017-11-05] MEDS: Pantoprazole Inj IV SCH (09:26)
--- NOTE | 2017-11-05 11:28 | Infectious Diseases Prog Note ---
Assessment/Plan Assessment/Plan ASSESSMENT: The patient is a 42-year-old male with, Possible aspiration pneumonia versus community-acquired pneumonia. Scx : P mirabilis -s/p Rx ; improving -11/01 CXR: Improving right middle lower lung infiltrates, over 3 days. Stable cardiomegaly 10/29 cXR: Infiltrate at the right lung base appears similar. =10/27: Overall improved aeration with decrease in interstitial opacification/ edema and decrease in right lower lung patchy airspace opacities. Some right lower lung opacities persist. -sp cx 10/24 normal bandar -BAL cx 10/18 neg 10/25 CXR: Stable or perhaps slightly improved diffuse bilateral interstitial and airspace edema versus infiltrates, over one day 10/13 C-Xray worsening of infiltrate vs edema -cocci ID neg, Cocci CF unable to obtain given presence of anticomplementary activity -histo ag urine p Leukocytosis ( on steroids ) -improving 10/21 u/a neg,ucx NTD, BCx neg CRP decreasing Intermittent low grade fevers- recurrent Probable scrotal cellulitis versus discoloration of genitalia due to edema; resolved CRP 09/15 >>4.3 10/24 HIV , Crypt, Aspergillus ab : neg U leg Ab and Ag: neg ARDS CORA improving PICC 10/09 VDRF self extub and reintubated 10/19; extubated 10/24 Congestive heart failure. PLAN: Continue to monitor off abx unless worsening fevers/ leukocytosis or increased O2 requiremetns 10/29 SP IV Vanco #10 10/27 SP Diflucan #10 10/27 Meropenem #14 10/17 sp vancomycin and Doxy d# 10 / 10/13 sp Zosyn d# 5 Monitor CBC/CMP Monitor chest x-ray Histo :P Subjective Allergies: Coded Allergies: No Known Allergies (Unverified , 10/06/17) Subjective Tm 100.2 x1 leukocytosis stable on 4l NC Objective Vital Signs Last 24 Hour Vital Signs Date Time Temp Pulse Resp B/P (MAP) Pulse Ox O2 Delivery O2 Flow Rate FiO2 11/05/17 08:21 105 22 99 Nasal Cannula 4.0 36 11/05/17 08:00 100.2 97 20 128/79 93 11/05/17 07:53 Nasal Cannula 4.0 36 11/05/17 07:51 104 20 95 Nasal Cannula 4.0 36 11/05/17 07:51 95 Nasal Cannula 4.0 36 11/05/17 04:00 98.1 93 20 129/79 98 Nasal Cannula 4.0 11/05/17 02:27 84 22 99 Nasal Cannula 4.0 36 11/05/17 02:00 80 22 95 Nasal Cannula 4.0 36 11/05/17 02:00 36 11/05/17 00:00 97.5 89 20 121/72 99 Nasal Cannula 4.0 11/04/17 20:30 96 Nasal Cannula 4.0 36 11/04/17 20:30 Nasal Cannula 4.0 36 11/04/17 20:00 98.8 84 20 119/82 100 Nasal Cannula 4.0 11/04/17 18:59 Nasal Cannula 11/04/17 18:02 101 20 97 Nasal Cannula 4.0 36 11/04/17 17:50 91 18 98 Nasal Cannula 4.0 11/04/17 15:52 77 18 98 Nasal Cannula 4.0 36 11/04/17 15:47 99.4 88 21 112/70 99 Room Air 11/04/17 15:42 80 20 96 Nasal Cannula 4.0 36 11/04/17 12:00 Nasal Cannula 11/04/17 12:00 98.0 90 20 111/74 98 Height (Feet): 5 Height (Inches): 4.00 Weight (Pounds): 356 Objective HEENT: atraumatic, normocephalic, other - NC in place Lungs: rhonchi - scattered anterior Heart: RRR Abdomen: soft, non-tender, active bowel sounds Extremities: no C/C/E Genitalia:Scrotal edema, improved Current Medications Medications (Trade) Dose Ordered Sig/Prince Route PRN Reason Start Time Stop Time Status Last Admin Dose Admin Acetaminophen (Tylenol) 650 mg Q4H PRN NG Mild Pain/Temp > 100.5 10/30/17 17:00 11/29/17 16:59 Acetylcysteine (Mucomyst) 200 mg Q6HRT HHN 10/30/17 19:00 11/28/17 07:59 11/05/17 07:49 Albuterol/ Ipratropium (Albuterol/ Ipratropium) 3 ml Q6H PRN HHN Shortness of Breath 11/02/17 15:00 11/07/17 14:59 11/05/17 02:06 Chlorhexidine Gluconate (Sol-Hex 2%) 1 applic DAILY@2000 TOPIC 10/30/17 20:00 11/08/17 19:59 11/04/17 21:00 Dextrose (Dextrose 50%) STAT PRN IV Hypoglycemia 10/31/17 11:00 11/11/17 10:59 Docusate Sodium (Colace) 100 mg BID GT 10/30/17 18:00 11/12/17 16:59 11/05/17 09:26 Ergocalciferol (Drisdol) 50,000 intlu QWEEK@1800 ORAL 10/31/17 17:00 11/30/17 16:59 10/31/17 18:11 Heparin Sodium (Porcine) (Heparin 5000 units/ml) 5,000 units DAILY SUBQ 10/31/17 09:00 11/07/17 10:59 11/04/17 10:24 Insulin Aspart (NovoLOG) BEFORE MEALS AND HS SUBQ 10/30/17 16:30 11/11/17 11:29 11/04/17 21:01 Magnesium Hydroxide (Mom) 30 ml DAILYPRN PRN GT Constipation 10/30/17 16:30 11/12/17 16:29 11/03/17 09:49 Methylprednisolone Sodium Succinate (Solu-MEDROL) 10 mg DAILY IVP 11/05/17 09:00 11/28/17 20:59 11/05/17 09:26 Pantoprazole (Protonix) 40 mg DAILY IV 10/31/17 09:00 11/06/17 10:59 11/05/17 09:26 Tamsulosin HCl (Flomax) 0.4 mg BEDTIME ORAL 11/04/17 21:00 12/04/17 20:59 11/04/17 21:00 Evelin Lam M.D. Nov 05, 2017 11:28
--- NOTE | 2017-11-05 11:35 | Nephrology Progress Note ---
Assessment/Plan Problem List: (1) Acute respiratory failure Assessment: self extubated 10/24 (2) Acute renal failure Assessment: with previous urinary out let obstruction Assessment s/p Acute renal failure- Cr WNL Acute Respiratory distress , ? aspiration pneumonia, intubated ARDS Now extubated and doing well s/p Acute Pulmonary edema scotal cellutis Morbid obesity. Thrombocytopenia. Abnormal blood sugar. Anemia. Plan Plan: mag iv and K IV given 1/3 no labs today Vit D per consultants K and Mag supplement as needed Keep BP in check monitor renal parameters per consultants / pulmonary per orders Dc planning Left ventricular ejection fraction estimated to be grossly normal. Mild left ventricular hypertrophy. Subjective ROS Limited/Unobtainable: No Constitutional: Reports: malaise Objective Objective Last 24 Hour Vital Signs Date Time Temp Pulse Resp B/P (MAP) Pulse Ox O2 Delivery O2 Flow Rate FiO2 11/05/17 08:21 105 22 99 Nasal Cannula 4.0 36 11/05/17 08:00 100.2 97 20 128/79 93 11/05/17 07:53 Nasal Cannula 4.0 36 11/05/17 07:51 104 20 95 Nasal Cannula 4.0 36 11/05/17 07:51 95 Nasal Cannula 4.0 36 11/05/17 04:00 98.1 93 20 129/79 98 Nasal Cannula 4.0 11/05/17 02:27 84 22 99 Nasal Cannula 4.0 36 11/05/17 02:00 80 22 95 Nasal Cannula 4.0 36 11/05/17 02:00 36 11/05/17 00:00 97.5 89 20 121/72 99 Nasal Cannula 4.0 11/04/17 20:30 96 Nasal Cannula 4.0 36 11/04/17 20:30 Nasal Cannula 4.0 36 11/04/17 20:00 98.8 84 20 119/82 100 Nasal Cannula 4.0 11/04/17 18:59 Nasal Cannula 11/04/17 18:02 101 20 97 Nasal Cannula 4.0 36 11/04/17 17:50 91 18 98 Nasal Cannula 4.0 11/04/17 15:52 77 18 98 Nasal Cannula 4.0 36 11/04/17 15:47 99.4 88 21 112/70 99 Room Air 11/04/17 15:42 80 20 96 Nasal Cannula 4.0 36 11/04/17 12:00 Nasal Cannula 11/04/17 12:00 98.0 90 20 111/74 98 Intake and Output 11/04/17 11/05/17 19:00 07:00 Intake Total 1840 ml Output Total 550 ml Balance 1840 ml -550 ml Intake Oral 1840 ml Output Urine Total 550 ml # Voids 1 # Bowel Movements 2 2 Height (Feet): 5 Height (Inches): 4.00 Weight (Pounds): 356 General Appearance: no apparent distress Objective no other change JAY YANCEY Nov 05, 2017 11:35
[2017-11-05 12:00] VITALS: BP 118/73
--- NOTE | 2017-11-05 12:41 | General Progress Note ---
Assessment/Plan Status: stable Assessment/Plan 1. ARDS-Hypoxemic respiratory failure. Resolved 3.Sepsis: Aspiration Gram negative HCA-PNA : Resolved 4. Gram negative HCA-PNA : Resolved 5. Cellulitis of the scrotal area. 6. Morbid obesity. 7. ARF 8. Obstructive uropathy 9. Thrombocytopenia. 10. DM-2 11. Anemia. 12. Gastrointestinal and deep vein thrombosis prophylaxes. 13. Psoriasis PLAN OF CARE: NOtes from Infectious Diseases Dr. Pineda, Nephrology, Dr Urrutia, reviewed S/p self extubation current management DC plan to SNIF vs Home plus HHcare. In progress Subjective ROS Limited/Unobtainable: No HEENT: Reports: no symptoms Cardiovascular: Reports: no symptoms Allergies: Coded Allergies: No Known Allergies (Unverified , 10/06/17) Subjective general weakness Objective Last 24 Hour Vital Signs Date Time Temp Pulse Resp B/P (MAP) Pulse Ox O2 Delivery O2 Flow Rate FiO2 11/05/17 08:21 105 22 99 Nasal Cannula 4.0 36 11/05/17 08:00 100.2 97 20 128/79 93 11/05/17 07:53 Nasal Cannula 4.0 36 11/05/17 07:51 104 20 95 Nasal Cannula 4.0 36 11/05/17 07:51 95 Nasal Cannula 4.0 36 11/05/17 04:00 98.1 93 20 129/79 98 Nasal Cannula 4.0 11/05/17 02:27 84 22 99 Nasal Cannula 4.0 36 11/05/17 02:00 80 22 95 Nasal Cannula 4.0 36 11/05/17 02:00 36 11/05/17 00:00 97.5 89 20 121/72 99 Nasal Cannula 4.0 11/04/17 20:30 96 Nasal Cannula 4.0 36 11/04/17 20:30 Nasal Cannula 4.0 36 11/04/17 20:00 98.8 84 20 119/82 100 Nasal Cannula 4.0 11/04/17 18:59 Nasal Cannula 11/04/17 18:02 101 20 97 Nasal Cannula 4.0 36 11/04/17 17:50 91 18 98 Nasal Cannula 4.0 11/04/17 15:52 77 18 98 Nasal Cannula 4.0 36 11/04/17 15:47 99.4 88 21 112/70 99 Room Air 11/04/17 15:42 80 20 96 Nasal Cannula 4.0 36 Intake and Output 11/04/17 11/05/17 19:00 07:00 Intake Total 1840 ml Output Total 550 ml Balance 1840 ml -550 ml Intake Oral 1840 ml Output Urine Total 550 ml # Voids 1 # Bowel Movements 2 2 Height (Feet): 5 Height (Inches): 4.00 Weight (Pounds): 356 General Appearance: no apparent distress EENT: PERRL/EOMI Neck: supple Cardiovascular: normal rate Respiratory/Chest: rhonchi - bilaterally Abdomen: soft, other - obese Extremities: non-tender Neurologic: communications associate II-XII grossly normal Nery Combs MD Nov 05, 2017 12:41
[2017-11-05] MEDS: Acetylcysteine 20% Soln 4ml HHN SCH ×2 (13:23→19:00)
[2017-11-05 16:23] VITALS: BP 120/75
[2017-11-05 20:00] VITALS: BP 129/67
[2017-11-05] MEDS: Dyna-Hex 2% Top Sol 2oz TOPIC SCH (20:28)
[2017-11-05] MEDS: Tamsulosin 0.4mg cap ORAL SCH (20:32)
--- NOTE | 2017-11-05 23:02 | Pulmonology Progress Note ---
Assessment/Plan Problems: (1) Acute respiratory failure (2) ARDS (adult respiratory distress syndrome) (3) Weakness (4) scotal cellutis Assessment/Plan improving respiratory treatment on low dose steroids pt/ot abs as per Id Med /surg dc planning Subjective ROS Limited/Unobtainable: No Constitutional: Reports: no symptoms HEENT: Repors: no symptoms Allergies: Coded Allergies: No Known Allergies (Unverified , 10/06/17) Objective Last 24 Hour Vital Signs Date Time Temp Pulse Resp B/P (MAP) Pulse Ox O2 Delivery O2 Flow Rate FiO2 11/05/17 20:00 98.1 89 18 129/67 97 Nasal Cannula 2.0 11/05/17 19:29 92 18 98 Nasal Cannula 4.0 36 11/05/17 19:02 98 18 95 Nasal Cannula 4.0 36 11/05/17 19:00 94 Nasal Cannula 4.0 36 11/05/17 19:00 Nasal Cannula 4.0 36 11/05/17 16:23 98.0 100 20 120/75 100 11/05/17 13:36 102 20 99 Nasal Cannula 4.0 36 11/05/17 13:26 106 20 96 Nasal Cannula 4.0 36 11/05/17 12:00 98.2 90 20 118/73 98 11/05/17 12:00 98.1 90 18 118/73 Room Air 11/05/17 08:21 105 22 99 Nasal Cannula 4.0 36 11/05/17 08:00 100.2 97 20 128/79 93 11/05/17 07:53 Nasal Cannula 4.0 36 11/05/17 07:51 104 20 95 Nasal Cannula 4.0 36 11/05/17 07:51 95 Nasal Cannula 4.0 36 11/05/17 04:00 98.1 93 20 129/79 98 Nasal Cannula 4.0 11/05/17 02:27 84 22 99 Nasal Cannula 4.0 36 11/05/17 02:00 80 22 95 Nasal Cannula 4.0 36 11/05/17 02:00 36 11/05/17 00:00 97.5 89 20 121/72 99 Nasal Cannula 4.0 Intake and Output 11/04/17 11/05/17 19:00 07:00 Intake Total 1840 ml Output Total 550 ml Balance 1840 ml -550 ml Intake Oral 1840 ml Output Urine Total 550 ml # Voids 1 # Bowel Movements 2 2 Objective General Appearance: WD/WN HEENT: normocephalic, atraumatic Respiratory/Chest: chest wall non-tender, lungs clear Abdomen: normal bowel sounds, soft, non tender Genitourinary: normal external genitalia Skin: no lesions Current Medications Medications (Trade) Dose Ordered Sig/Prince Route PRN Reason Start Time Stop Time Status Last Admin Dose Admin Acetaminophen (Tylenol) 650 mg Q4H PRN NG Mild Pain/Temp > 100.5 10/30/17 17:00 11/29/17 16:59 Acetylcysteine (Mucomyst) 200 mg Q6HRT HHN 11/05/17 13:30 11/28/17 13:29 11/05/17 19:00 Albuterol/ Ipratropium (Albuterol/ Ipratropium) 3 ml Q6H PRN HHN Shortness of Breath 11/02/17 15:00 11/07/17 14:59 11/05/17 02:06 Chlorhexidine Gluconate (Sol-Hex 2%) 1 applic DAILY@2000 TOPIC 10/30/17 20:00 11/08/17 19:59 11/05/17 20:28 Dextrose (Dextrose 50%) STAT PRN IV Hypoglycemia 10/31/17 11:00 11/11/17 10:59 Docusate Sodium (Colace) 100 mg BID GT 10/30/17 18:00 11/12/17 16:59 11/05/17 17:33 Ergocalciferol (Drisdol) 50,000 intlu QWEEK@1800 ORAL 10/31/17 17:00 11/30/17 16:59 10/31/17 18:11 Heparin Sodium (Porcine) (Heparin 5000 units/ml) 5,000 units DAILY SUBQ 10/31/17 09:00 11/07/17 10:59 11/04/17 10:24 Insulin Aspart (NovoLOG) BEFORE MEALS AND HS SUBQ 10/30/17 16:30 11/11/17 11:29 11/05/17 16:44 Magnesium Hydroxide (Mom) 30 ml DAILYPRN PRN GT Constipation 10/30/17 16:30 11/12/17 16:29 11/03/17 09:49 Methylprednisolone Sodium Succinate (Solu-MEDROL) 10 mg DAILY IVP 11/05/17 09:00 11/28/17 20:59 11/05/17 09:26 Pantoprazole (Protonix) 40 mg DAILY IV 10/31/17 09:00 11/06/17 10:59 11/05/17 09:26 Tamsulosin HCl (Flomax) 0.4 mg BEDTIME ORAL 11/04/17 21:00 12/04/17 20:59 11/05/17 20:32 DWAYNE GROSS Nov 05, 2017 23:02
[2017-11-06] VITALS: BP 130/68
--- NOTE | 2017-11-06 00:27 | Cardiology Report ---
APPROVED REPORT EKG Measurement Heart [id number] Sinus bradycardia Right bundle branch block Abnormal ECG
[2017-11-06] MEDS: Acetylcysteine 20% Soln 4ml HHN SCH ×3 (01:00→13:24)
[2017-11-06 04:00] VITALS: BP 125/65
[2017-11-06] MEDS: NovoLOG Insulin Flexpen SUBQ SCH ×3 (06:07→17:13)
[2017-11-06 08:00] VITALS: BP 129/81
[2017-11-06] MEDS: Heparin 5000 units/ml inj SUBQ SCH (09:00)
[2017-11-06] MEDS: Pantoprazole Inj IV SCH (09:02)
[2017-11-06] MEDS: Solu-MEDROL 40mg Inj IVP SCH (09:02)
[2017-11-06] MEDS: Docusate 100mg/10ml Liq GT SCH ×2 (09:02→18:00)
--- NOTE | 2017-11-06 09:54 | Nephrology Progress Note ---
Assessment/Plan Problem List: (1) Acute respiratory failure Assessment: self extubated 10/24 (2) Acute renal failure Assessment: with previous urinary out let obstruction Assessment s/p Acute renal failure- Cr WNL Acute Respiratory distress , ? aspiration pneumonia, intubated ARDS Now extubated and doing well s/p Acute Pulmonary edema scotal cellutis Morbid obesity. Thrombocytopenia. Abnormal blood sugar. Anemia. Plan Plan: no labs- mag iv and K IV given 1/3 no labs today Vit D per consultants K and Mag supplement as needed Keep BP in check monitor renal parameters per consultants / pulmonary per orders Dc planning Left ventricular ejection fraction estimated to be grossly normal. Mild left ventricular hypertrophy. Subjective ROS Limited/Unobtainable: No Constitutional: Reports: malaise Objective Objective Last 24 Hour Vital Signs Date Time Temp Pulse Resp B/P (MAP) Pulse Ox O2 Delivery O2 Flow Rate FiO2 11/06/17 08:17 99 20 65 Nasal Cannula 2.0 28 11/06/17 08:05 96 Nasal Cannula 2.0 28 11/06/17 08:04 Nasal Cannula 2.0 28 11/06/17 08:03 96 18 97 Nasal Cannula 2.0 28 11/06/17 08:00 97.9 97 20 129/81 96 Nasal Cannula 4.0 11/06/17 04:00 98.8 95 18 125/65 97 Nasal Cannula 2.0 11/06/17 01:00 Nasal Cannula 4.0 36 11/06/17 01:00 Nasal Cannula 4.0 36 11/06/17 00:00 97.5 88 18 130/68 97 11/05/17 20:00 98.1 89 18 129/67 97 Nasal Cannula 2.0 11/05/17 19:29 92 18 98 Nasal Cannula 4.0 36 11/05/17 19:02 98 18 95 Nasal Cannula 4.0 36 11/05/17 19:00 94 Nasal Cannula 4.0 36 11/05/17 19:00 Nasal Cannula 4.0 36 11/05/17 16:23 98.0 100 20 120/75 100 11/05/17 13:36 102 20 99 Nasal Cannula 4.0 36 11/05/17 13:26 106 20 96 Nasal Cannula 4.0 36 11/05/17 12:00 98.2 90 20 118/73 98 11/05/17 12:00 98.1 90 18 118/73 Room Air Intake and Output 11/05/17 11/06/17 19:00 07:00 Intake Total 580 ml Balance 580 ml Intake Oral 580 ml # Voids 4 1 # Bowel Movements 1 Height (Feet): 5 Height (Inches): 4.00 Weight (Pounds): 356 General Appearance: no apparent distress Objective no other change JAY YANCEY Nov 06, 2017 09:53
[2017-11-06 12:00] VITALS: BP 129/79
[2017-11-06 12:04] LABS: HEMATOCRIT 40.5 % (42.0-52.0); HEMOGLOBIN 11.3 G/DL (14.2-18.0); MEAN CORPUSCULAR VOLUME 66 FL (80-99); PLATELET COUNT 93 K/UL (150-450); RED BLOOD COUNT 6.08 M/UL (4.70-6.10); RED CELL DISTRIBUTION WIDTH 22.7 % (11.6-14.8); WHITE BLOOD COUNT 6.9 K/UL (4.8-10.8)
--- NOTE | 2017-11-06 12:20 | Infectious Diseases Prog Note ---
Assessment/Plan Assessment/Plan ASSESSMENT: The patient is a 42-year-old male with, Possible aspiration pneumonia versus community-acquired pneumonia. Scx : P mirabilis -s/p Rx ; improving -11/01 CXR: Improving right middle lower lung infiltrates, over 3 days. Stable cardiomegaly 10/29 cXR: Infiltrate at the right lung base appears similar. =10/27: Overall improved aeration with decrease in interstitial opacification/ edema and decrease in right lower lung patchy airspace opacities. Some right lower lung opacities persist. -sp cx 10/24 normal bandar -BAL cx 10/18 neg 10/25 CXR: Stable or perhaps slightly improved diffuse bilateral interstitial and airspace edema versus infiltrates, over one day 10/13 C-Xray worsening of infiltrate vs edema -cocci ID neg, Cocci CF unable to obtain given presence of anticomplementary activity -histo ag urine p Leukocytosis ( on steroids ) -resolved 10/21 u/a neg,ucx NTD, BCx neg CRP decreasing Intermittent low grade fevers- recurrent- improving Probable scrotal cellulitis versus discoloration of genitalia due to edema; resolved CRP 09/15 >>4.3 10/24 HIV , Crypt, Aspergillus ab : neg U leg Ab and Ag: neg ARDS CORA improving PICC 10/09 VDRF self extub and reintubated 10/19; extubated 10/24 Congestive heart failure. PLAN: Continue to monitor off abx unless worsening fevers/ leukocytosis or increased O2 requiremetns 10/29 SP IV Vanco #10 10/27 SP Diflucan #10 10/27 Meropenem #14 10/17 sp vancomycin and Doxy d# 10 / 10/13 sp Zosyn d# 5 Monitor CBC/CMP Monitor chest x-ray Histo :P Subjective Allergies: Coded Allergies: No Known Allergies (Unverified , 10/06/17) Subjective afebrile in >24hrs leukocytosis resolved down to 2L NC Objective Vital Signs Last 24 Hour Vital Signs Date Time Temp Pulse Resp B/P (MAP) Pulse Ox O2 Delivery O2 Flow Rate FiO2 11/06/17 08:17 99 20 65 Nasal Cannula 2.0 28 11/06/17 08:05 96 Nasal Cannula 2.0 28 11/06/17 08:04 Nasal Cannula 2.0 28 11/06/17 08:03 96 18 97 Nasal Cannula 2.0 28 11/06/17 08:00 97.9 97 20 129/81 96 Nasal Cannula 4.0 11/06/17 04:00 98.8 95 18 125/65 97 Nasal Cannula 2.0 11/06/17 01:00 Nasal Cannula 4.0 36 11/06/17 01:00 Nasal Cannula 4.0 36 11/06/17 00:00 97.5 88 18 130/68 97 11/05/17 20:00 98.1 89 18 129/67 97 Nasal Cannula 2.0 11/05/17 19:29 92 18 98 Nasal Cannula 4.0 36 11/05/17 19:02 98 18 95 Nasal Cannula 4.0 36 11/05/17 19:00 94 Nasal Cannula 4.0 36 11/05/17 19:00 Nasal Cannula 4.0 36 11/05/17 16:23 98.0 100 20 120/75 100 11/05/17 13:36 102 20 99 Nasal Cannula 4.0 36 11/05/17 13:26 106 20 96 Nasal Cannula 4.0 36 Height (Feet): 5 Height (Inches): 4.00 Weight (Pounds): 356 Objective HEENT: atraumatic, normocephalic, other - NC in place Lungs: rhonchi - scattered anterior Heart: RRR Abdomen: soft, non-tender, active bowel sounds Extremities: no C/C/E Genitalia:Scrotal edema, improved Laboratory Tests Test 11/06/17 11:45 White Blood Count 6.9 K/UL (4.8-10.8) Red Blood Count 6.08 M/UL (4.70-6.10) Hemoglobin 11.3 G/DL (14.2-18.0) L Hematocrit 40.5 % (42.0-52.0) L Mean Corpuscular Volume 66 FL (80-99) L Mean Corpuscular Hemoglobin 18.6 PG (27.0-31.0) L Mean Corpuscular Hemoglobin Concent 28.0 G/DL (32.0-36.0) L Red Cell Distribution Width 22.7 % (11.6-14.8) H Platelet Count 93 K/UL (150-450) L Mean Platelet Volume 9.0 FL (6.5-10.1) Neutrophils (%) (Auto) % (45.0-75.0) Lymphocytes (%) (Auto) % (20.0-45.0) Monocytes (%) (Auto) % (1.0-10.0) Eosinophils (%) (Auto) % (0.0-3.0) Basophils (%) (Auto) % (0.0-2.0) Neutrophils % (Manual) Pending Lymphocytes % (Manual) Pending Platelet Estimate Pending Platelet Morphology Pending Sodium Level Pending Potassium Level Pending Chloride Level Pending Carbon Dioxide Level Pending Blood Urea Nitrogen Pending Creatinine Pending Estimat Glomerular Filtration Rate Pending Glucose Level Pending Calcium Level Pending Phosphorus Level Pending Magnesium Level Pending Total Bilirubin Pending Aspartate Amino Transf (AST/SGOT) Pending Alanine Aminotransferase (ALT/SGPT) Pending Alkaline Phosphatase Pending Total Protein Pending Albumin Pending Globulin Pending Current Medications Medications (Trade) Dose Ordered Sig/Prince Route PRN Reason Start Time Stop Time Status Last Admin Dose Admin Acetaminophen (Tylenol) 650 mg Q4H PRN NG Mild Pain/Temp > 100.5 10/30/17 17:00 11/29/17 16:59 Acetylcysteine (Mucomyst) 200 mg Q6HRT HHN 11/05/17 13:30 11/28/17 13:29 11/06/17 08:00 Albuterol/ Ipratropium (Albuterol/ Ipratropium) 3 ml Q6H PRN HHN Shortness of Breath 11/02/17 15:00 11/07/17 14:59 11/05/17 02:06 Chlorhexidine Gluconate (Sol-Hex 2%) 1 applic DAILY@2000 TOPIC 10/30/17 20:00 11/08/17 19:59 11/05/17 20:28 Dextrose (Dextrose 50%) STAT PRN IV Hypoglycemia 10/31/17 11:00 11/11/17 10:59 Docusate Sodium (Colace) 100 mg BID GT 10/30/17 18:00 11/12/17 16:59 11/06/17 09:02 Ergocalciferol (Drisdol) 50,000 intlu QWEEK@1800 ORAL 10/31/17 17:00 11/30/17 16:59 10/31/17 18:11 Heparin Sodium (Porcine) (Heparin 5000 units/ml) 5,000 units DAILY SUBQ 10/31/17 09:00 11/07/17 10:59 11/04/17 10:24 Insulin Aspart (NovoLOG) BEFORE MEALS AND HS SUBQ 10/30/17 16:30 11/11/17 11:29 11/06/17 11:33 Magnesium Hydroxide (Mom) 30 ml DAILYPRN PRN GT Constipation 10/30/17 16:30 11/12/17 16:29 11/03/17 09:49 Methylprednisolone Sodium Succinate (Solu-MEDROL) 10 mg DAILY IVP 11/05/17 09:00 11/28/17 20:59 11/06/17 09:02 Tamsulosin HCl (Flomax) 0.4 mg BEDTIME ORAL 11/04/17 21:00 12/04/17 20:59 11/05/17 20:32 Evelin Lam M.D. Nov 06, 2017 12:20
[2017-11-06 12:36] LABS: ALANINE AMINOTRANSFERASE 54 U/L (12-78); ALBUMIN 1.6 G/DL (3.4-5.0); ALBUMIN/GLOBULIN RATIO 0.6 (1.0-2.7); ALKALINE PHOSPHATASE 88 U/L (46-116); ANION GAP 9 mmol/L (5-15); ASPARTATE AMINO TRANSFERASE 24 U/L (15-37); BILIRUBIN,TOTAL 0.4 MG/DL (0.2-1.0); BLOOD UREA NITROGEN 15 mg/dL (7-18); CARBON DIOXIDE 23 MMOL/L (21-32); CHLORIDE 114 MMOL/L (98-107); CREATININE 0.6 MG/DL (0.55-1.30); PHOSPHORUS 2.2 MG/DL (2.5-4.9); SODIUM 145 MMOL/L (136-145)
[2017-11-06 12:37] LABS: CALCIUM 5.9 MG/DL (8.5-10.1); POTASSIUM 2.5 MMOL/L (3.5-5.1)
[2017-11-06 13:28] LABS: ALANINE AMINOTRANSFERASE 96 U/L (12-78); ALBUMIN 2.7 G/DL (3.4-5.0); ALBUMIN/GLOBULIN RATIO 0.6 (1.0-2.7); ALKALINE PHOSPHATASE 151 U/L (46-116); ANION GAP 9 mmol/L (5-15); ASPARTATE AMINO TRANSFERASE 35 U/L (15-37); BILIRUBIN,TOTAL 0.7 MG/DL (0.2-1.0); BLOOD UREA NITROGEN 19 mg/dL (7-18); CALCIUM 8.8 MG/DL (8.5-10.1); CARBON DIOXIDE 28 MMOL/L (21-32); CHLORIDE 100 MMOL/L (98-107); SODIUM 137 MMOL/L (136-145)
[2017-11-06] MEDS ORDERED: FLOMAX0.4 MG ORAL (15:00)
[2017-11-06 16:00] VITALS: BP 116/73
--- NOTE | 2017-11-06 16:43 | General Progress Note ---
Assessment/Plan Status: stable Assessment/Plan 1. ARDS-Hypoxemic respiratory failure. Resolved 3.Sepsis: Aspiration Gram negative HCA-PNA : Resolved 4. Gram negative HCA-PNA : Resolved 5. Cellulitis of the scrotal area. 6. Morbid obesity. 7. ARF 8. Obstructive uropathy 9. Thrombocytopenia. 10. DM-2 11. Anemia. 12. Gastrointestinal and deep vein thrombosis prophylaxes. 13. Psoriasis PLAN OF CARE: NOtes from Infectious Diseases Dr. Pineda, Nephrology, Dr Urrutia, reviewed S/p self extubation current management DC plan to Home plus HHcare. Subjective ROS Limited/Unobtainable: No Constitutional: Reports: no symptoms HEENT: Reports: no symptoms Allergies: Coded Allergies: No Known Allergies (Unverified , 10/06/17) Subjective general weakness Objective Last 24 Hour Vital Signs Date Time Temp Pulse Resp B/P (MAP) Pulse Ox O2 Delivery O2 Flow Rate FiO2 11/06/17 13:32 78 20 99 Nasal Cannula 2.0 28 11/06/17 13:24 79 20 98 Nasal Cannula 2.0 28 11/06/17 12:00 98.1 90 20 129/79 94 11/06/17 08:17 99 20 98 Nasal Cannula 2.0 28 11/06/17 08:05 96 Nasal Cannula 2.0 28 11/06/17 08:04 Nasal Cannula 2.0 28 11/06/17 08:03 96 18 97 Nasal Cannula 2.0 28 11/06/17 08:00 97.9 97 20 129/81 96 Nasal Cannula 4.0 11/06/17 04:00 98.8 95 18 125/65 97 Nasal Cannula 2.0 11/06/17 01:00 Nasal Cannula 4.0 36 11/06/17 01:00 Nasal Cannula 4.0 36 11/06/17 00:00 97.5 88 18 130/68 97 11/05/17 20:00 98.1 89 18 129/67 97 Nasal Cannula 2.0 11/05/17 19:29 92 18 98 Nasal Cannula 4.0 36 11/05/17 19:02 98 18 95 Nasal Cannula 4.0 36 11/05/17 19:00 94 Nasal Cannula 4.0 36 11/05/17 19:00 Nasal Cannula 4.0 36 Intake and Output 11/05/17 11/06/17 19:00 07:00 Intake Total 580 ml Balance 580 ml Intake Oral 580 ml # Voids 4 1 # Bowel Movements 1 Laboratory Tests 11/06/17 11:45: White Blood Count 6.9, Red Blood Count 6.08, Hemoglobin 11.3L, Hematocrit 40.5L , Mean Corpuscular Volume 66L, Mean Corpuscular Hemoglobin 18.6L, Mean Corpuscular Hemoglobin Concent 28.0L, Red Cell Distribution Width 22.7H, Platelet Count 93L, Mean Platelet Volume 9.0, Neutrophils (%) (Auto) , Lymphocytes (%) (Auto) , Monocytes (%) (Auto) , Eosinophils (%) (Auto) , Basophils (%) (Auto) , Differential Total Cells Counted 100, Neutrophils % ( Manual) 92H, Lymphocytes % (Manual) 4L, Monocytes % (Manual) 3, Eosinophils % ( Manual) 1, Basophils % (Manual) 0, Band Neutrophils 0, Platelet Estimate DecreasedL, Platelet Morphology Normal, Hypochromasia 1+, Anisocytosis 3+, Microcytosis 4+, Sodium Level 145, Potassium Level 2.5*L, Chloride Level 114H, Carbon Dioxide Level 23, Anion Gap 9, Blood Urea Nitrogen 15, Creatinine 0.6, Estimat Glomerular Filtration Rate > 60, Glucose Level 85, Calcium Level 5.9*L, Phosphorus Level 2.2L, Magnesium Level 0.8*L, Total Bilirubin 0.4, Aspartate Amino Transf (AST/SGOT) 24, Alanine Aminotransferase (ALT/SGPT) 54, Alkaline Phosphatase 88, Total Protein 4.5L, Albumin 1.6L, Globulin 2.9, Albumin/ Globulin Ratio 0.6L 11/06/17 12:50: Sodium Level 137, Potassium Level 4.0#, Chloride Level 100, Carbon Dioxide Level 28, Anion Gap 9, Blood Urea Nitrogen 19H, Creatinine 1.0#, Estimat Glomerular Filtration Rate > 60, Glucose Level 136H, Calcium Level 8.8#, Phosphorus Level 3.0, Magnesium Level 1.5L, Total Bilirubin 0.7, Aspartate Amino Transf (AST/SGOT) 35, Alanine Aminotransferase (ALT/SGPT) 96H, Alkaline Phosphatase 151H, Total Protein 7.3#, Albumin 2.7L, Globulin 4.6, Albumin/ Globulin Ratio 0.6L Height (Feet): 5 Height (Inches): 4.00 Weight (Pounds): 356 General Appearance: WD/WN EENT: PERRL/EOMI Neck: supple Cardiovascular: normal rate Respiratory/Chest: lungs clear Abdomen: soft Extremities: non-tender, other - mild symetric weakness 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
--- NOTE | 2017-11-06 22:55 | Pulmonology Progress Note ---
Assessment/Plan Problems: (1) Acute respiratory failure (2) ARDS (adult respiratory distress syndrome) (3) Weakness (4) scotal cellutis Assessment/Plan improving respiratory treatment on low dose steroids pt/ot abs as per Id Med /surg dc planning Subjective Allergies: Coded Allergies: No Known Allergies (Unverified , 10/06/17) Objective Last 24 Hour Vital Signs Date Time Temp Pulse Resp B/P (MAP) Pulse Ox O2 Delivery O2 Flow Rate FiO2 11/06/17 16:00 97.9 91 21 116/73 96 11/06/17 13:32 78 20 99 Nasal Cannula 2.0 28 11/06/17 13:24 79 20 98 Nasal Cannula 2.0 28 11/06/17 12:00 98.1 90 20 129/79 94 11/06/17 08:17 99 20 98 Nasal Cannula 2.0 28 11/06/17 08:05 96 Nasal Cannula 2.0 28 11/06/17 08:04 Nasal Cannula 2.0 28 11/06/17 08:03 96 18 97 Nasal Cannula 2.0 28 11/06/17 08:00 97.9 97 20 129/81 96 Nasal Cannula 4.0 11/06/17 04:00 98.8 95 18 125/65 97 Nasal Cannula 2.0 11/06/17 01:00 Nasal Cannula 4.0 36 11/06/17 01:00 Nasal Cannula 4.0 36 11/06/17 00:00 97.5 88 18 130/68 97 Intake and Output 11/05/17 11/06/17 19:00 07:00 Intake Total 580 ml Balance 580 ml Intake Oral 580 ml # Voids 4 1 # Bowel Movements 1 Objective General Appearance: WD/WN HEENT: normocephalic, atraumatic Respiratory/Chest: chest wall non-tender, lungs clear Abdomen: normal bowel sounds, soft, non tender Genitourinary: normal external genitalia Skin: no lesions Laboratory Tests 11/06/17 11:45: White Blood Count 6.9, Red Blood Count 6.08, Hemoglobin 11.3L, Hematocrit 40.5L , Mean Corpuscular Volume 66L, Mean Corpuscular Hemoglobin 18.6L, Mean Corpuscular Hemoglobin Concent 28.0L, Red Cell Distribution Width 22.7H, Platelet Count 93L, Mean Platelet Volume 9.0, Neutrophils (%) (Auto) , Lymphocytes (%) (Auto) , Monocytes (%) (Auto) , Eosinophils (%) (Auto) , Basophils (%) (Auto) , Differential Total Cells Counted 100, Neutrophils % ( Manual) 92H, Lymphocytes % (Manual) 4L, Monocytes % (Manual) 3, Eosinophils % ( Manual) 1, Basophils % (Manual) 0, Band Neutrophils 0, Platelet Estimate DecreasedL, Platelet Morphology Normal, Hypochromasia 1+, Anisocytosis 3+, Microcytosis 4+, Sodium Level 145, Potassium Level 2.5*L, Chloride Level 114H, Carbon Dioxide Level 23, Anion Gap 9, Blood Urea Nitrogen 15, Creatinine 0.6, Estimat Glomerular Filtration Rate > 60, Glucose Level 85, Calcium Level 5.9*L, Phosphorus Level 2.2L, Magnesium Level 0.8*L, Total Bilirubin 0.4, Aspartate Amino Transf (AST/SGOT) 24, Alanine Aminotransferase (ALT/SGPT) 54, Alkaline Phosphatase 88, Total Protein 4.5L, Albumin 1.6L, Globulin 2.9, Albumin/ Globulin Ratio 0.6L 11/06/17 12:50: Sodium Level 137, Potassium Level 4.0#, Chloride Level 100, Carbon Dioxide Level 28, Anion Gap 9, Blood Urea Nitrogen 19H, Creatinine 1.0#, Estimat Glomerular Filtration Rate > 60, Glucose Level 136H, Calcium Level 8.8#, Phosphorus Level 3.0, Magnesium Level 1.5L, Total Bilirubin 0.7, Aspartate Amino Transf (AST/SGOT) 35, Alanine Aminotransferase (ALT/SGPT) 96H, Alkaline Phosphatase 151H, Total Protein 7.3#, Albumin 2.7L, Globulin 4.6, Albumin/ Globulin Ratio 0.6L DWAYNE GROSS Nov 06, 2017 22:55
--- NOTE | 2017-11-09 16:41 | Discharge Summary ---
Discharge Summary Hospital Course Date of Admission Oct 06, 2017 at 22:53 Date of Discharge Nov 06, 2017 at 18:42 Admitting Diagnosis Scrotal cellulitis OPAL Hummel is a 42 year old male who was admitted on Oct 06, 2017 at 22:53 for Scrotal Cellulitis Hospital Course [id number] Discharge Discharge Disposition Patient was discharged to Home (01) Discharge Diagnoses: Andie Mills NP Nov 09, 2017 16:41
--- NOTE | 2017-11-10 03:00 | Discharge Summary 2 SIG ---
DATE OF ADMISSION: 10/06/2017 DATE OF DISCHARGE: 11/06/2017 CONSULTANTS: 1. Macario Urrutia M.D. 2. Radha Casas M.D. 3. Evelin Lam M.D. 4. Semaj Juárez M.D. 5. Rebel Rios M.D. 6. Jose Steinberg M.D. 7. Rivera Moreno M.D. 8. Oleg Ovalles M.D. BRIEF HOSPITAL COURSE: The patient is a 42-year-old male, who presented to ED complaining of swelling on the scrotal area for one day. Pain was 10/10, throbbing, and nonradiating. On evaluation at ED, there was no leukocytosis. Blood work was stable. Scrotal ultrasound done showed no evidence of torsion, however, there was significant edema. Dr. Moreno was consulted, who suggested elevation of scrotum and antibiotic. The patient was admitted to medical floor for evaluation of scrotal cellulitis. Apparently at medical/surgical floor, the patient coded and O2 saturation dropped. Code Blue was called and the patient was orally intubated and was transferred to ICU. Chest x-ray showed increased right lung consolidation and bilateral diffuse interstitial airspace disease. He was then started on vancomycin and Zosyn. Creatinine was rising. Renal ultrasound done showed nonvisualization of the left kidney. There was no right hydronephrosis. Bladder was markedly distended. Calculated volume of 1500 mL. Venous duplex of lower extremity was negative for DVT. Dr. Ovalles was consulted and was able to insert a 16-Armenian Carrington catheter. He was given pulmonary support and ABG showed worsening hypercapnia. Vent settings were adjusted. Echocardiogram done was technically difficult. LVEF was estimated to be grossly normal. He was given heparin subcutaneous for DVT prophylaxis. He continued to have leukocytosis and low-grade fever. Sputum culture showing growth of Proteus mirabilis. Antibiotics were adjusted. Urine Legionella antibody and antigen negative. On 10/18/2017, he underwent bronchoscopy with therapeutic aspiration of mucus plug/clot and had bronchial alveolar lavage by Dr. Steinberg. The patient had guarded prognosis. The patient self-extubated on 10/19/2017 and had to be reintubated. PICC line was inserted to the right arm. Bronchial washing cultures were negative. He again self-extubated on 10/24/2017. Respiratory status was monitored. He was placed on Venturi mask and was eventually transitioned to nasal cannula. Blood culture did not isolate any growth. Sputum culture with normal bandar. Repeat sputum culture showed normal bandar. He received 10 days of vancomycin, Diflucan, and doxycycline, 14 days of meropenem, and five days of vancomycin. He was eventually taken off antibiotic treatment. Leukocytosis resolved. Carrington catheter was eventually discontinued, but developed recurrence of urinary retention. He was then started on Flomax. His electrolytes were repleted. He was seen by PT and OT. He was eventually discharged home. FINAL DIAGNOSES: 1. Acute hypoxemic respiratory failure/acute respiratory distress syndrome, resolved. 2. Sepsis, secondary to pneumonia. 3. Gram-negative pneumonia, resolved. 4. Cellulitis of scrotal area 5. Morbid obesity. 6. Acute renal failure. 7. Obstructive uropathy. 8. Thrombocytopenia. 9. Diabetes mellitus type 2. 10. Anemia. 11. Psoriasis. 12. Possible aspiration pneumonia. 13. Hypernatremia. 14. Likely acute tubular necrosis. 15. Urinary retention. 16. Likely obesity hyperventilation syndrome with chronic hypercapnia exacerbated by acute respiratory distress syndrome. DISPOSITION: The patient was discharged home. DISCHARGE MEDICATIONS: Refer to medication list. DISCHARGE INSTRUCTIONS: The patient was advised to follow up as an outpatient. Nery Combs M.D. I have been assigned to dictate discharge summary on this account and I was not involved in the patient's management. Andie Mills N.P. DR: Laurie JOB#: [id number] CC:
--- NOTE | 2017-11-13 23:52 | Physician Query ---
--------- THIS DOCUMENT IS A PERMANENT PART OF THE MEDICAL RECORD --------- PLEASE COMPLETE DOCUMENT BEFORE SIGNING Dear Dr. Steinberg Date: 11/12/17 [employer]ologist/CDS Name: Dariela Sarah, CCS, CCDS Exercise your independent professional judgment when responding to the query. Questions asked do not imply a particular answer is desired or expected. We greatly appreciate your clarification on this issue. CLINICAL DOCUMENTATION STATES: Operative Note Date of Operation/Procedure: Oct 18, 2017 Chief Complaint: RESPIRATORY FAILURE Pre-op Diagnosis: ARDS & MULTILOBAR PNA Procedure: BRONCHOSCOPY WITH THERAPEUTIC ASPIRATION OF MUCOUS PLUG/CLOT AND BRONCHOALVEOLAR LAVAGE Please respond to the following question: Please specify what part of lung was the Lavage performed in: ( ) lower lung lobe, Left ( ) Lower lung lobe, Right ( ) lung lingula ( ) Middle lung lobe, Right ( ) Upper lung lobe, left ( )Upper lung lobe, Right Please also document in your Progress Notes and/or Discharge Summary and indicate if the condition was present on admission. Jose Steinberg M.D. Date & time [facility]
== END 2017-11-06 18:42 | disposition home or self-care (01) | DRG 130 ==
LOC: EMR 22:40 → 4E 22:53 → EDBEDREQ 23:14 → ICU 10-07 06:30 → 2W 10-26 10:56 → 4E 10-30 16:07
PROC: 5A1955Z Respiratory Ventilation, Greater than 96 Consecutive Hours (ICD-10-PCS; principal; 2017-10-06)
PROC: 0BH17EZ Insertion of Endotracheal Airway into Trachea, Via Natural or Artificial Opening (ICD-10-PCS; 2017-10-06)
PROC: 02HV33Z Insertion of Infusion Device into Superior Vena Cava, Percutaneous Approach (ICD-10-PCS; 2017-10-09)
PROC: B548ZZA Ultrasonography of Superior Vena Cava, Guidance (ICD-10-PCS; 2017-10-09)
PROC: 0BC78ZZ Extirpation of Matter from Left Main Bronchus, Via Natural or Artificial Opening Endoscopic (ICD-10-PCS; 2017-10-18)
PROC: 0BC38ZZ Extirpation of Matter from Right Main Bronchus, Via Natural or Artificial Opening Endoscopic (ICD-10-PCS; 2017-10-18)
PROC: 0B9J8ZX Drainage of Left Lower Lung Lobe, Via Natural or Artificial Opening Endoscopic, Diagnostic (ICD-10-PCS; 2017-10-18)
PROC: 5A1955Z Respiratory Ventilation, Greater than 96 Consecutive Hours (ICD-10-PCS; 2017-10-19)
PROC: 0BH17EZ Insertion of Endotracheal Airway into Trachea, Via Natural or Artificial Opening (ICD-10-PCS; 2017-10-19)
DX: J96.01 Acute respiratory failure with hypoxia (principal); N17.0 Acute kidney failure with tubular necrosis; A41.50 Gram-negative sepsis, unspecified; J69.0 Pneumonitis due to inhalation of food and vomit; J15.6 Pneumonia due to other Gram-negative bacteria; D69.6 Thrombocytopenia, unspecified; E87.0 Hyperosmolality and hypernatremia; Z68.44 Body mass index [BMI] 60.0-69.9, adult; T17.590A Other foreign object in bronchus causing asphyxiation, initial encounter; E66.2 Morbid (severe) obesity with alveolar hypoventilation; I50.9 Heart failure, unspecified; N49.2 Inflammatory disorders of scrotum; R33.9 Retention of urine, unspecified; E11.9 Type 2 diabetes mellitus without complications; J80 Acute respiratory distress syndrome; R00.1 Bradycardia, unspecified; X58.XXXA Exposure to other specified factors, initial encounter; Y92.9 Unspecified place or not applicable; L40.9 Psoriasis, unspecified
CPT/HCPCS: 31645; 36415; 36569; 36600; 71010; 71045; 74000; 74230; 76775; 76870; 76937; 80048; 80053; 80061; 80076; 80202; 81001; 81003; 81050; 82164; 82248; 82550; 82553; 82803; 82962; 82977; 83036; 83605; 83735; 83880; 84100; 84133; 84156; 84300; 84443; 84478; 84484; 84550; 85007; 85025; 85651; 86140; 86606; 86635; 86703; 86713; 87040; 87070; 87086; 87181; 87205; 87385; 87449; 89050; 92950; 93005; 93306; 93970; 94002; 94003; 94640; 94760; 99291; J0171; J1815; J7620